=== PATIENT | female | born 1950 | race Caucasian/White ===

== ENCOUNTER 2022-12-18 12:28 | Observation (INO) | payer MEDICARE, SELFPAY ==
[2022-12-18] VITALS (14 sets, daily range): BP systolic 110–163; BP diastolic 66–117; PULSE 61–100; RESP 18–22; TEMP 36.4–36.9; O2SAT 92–100; BMI 40.5; BMI 38.9
--- NOTE | 2022-12-18 12:35 | XR_ITS ---
FINAL REPORT CLINICAL HISTORY: Shortness of breath, copd and chf COMPARISON: None FINDINGS: The patient is intubated. Endotracheal tube is present with the tip 7 cm superior to the cele. The heart size is at the upper limits of normal. The mediastinum is normal. There are mild chronic changes in both lungs. There is subtle airspace opacity in the right perihilar region which may be due to localized edema or pneumonia. There are no pleural effusions. There is no pneumothorax. There is no osseous abnormality. IMPRESSION: Right perihilar airspace opacity may be due to localized edema or pneumonia. Follow-up recommended. Reviewed, Interpreted and Dictated by Roque Cantu MD Transcribed by Mayra Rios Authenticated and [facility]
--- NOTE | 2022-12-18 12:39 | PC.NURSE ---
respiratory aware of vbg in lab
[2022-12-18 12:49] LABS: Basophils % 0.6 % (0.1-2.0); Chloride 89 mmol/L (98-107); Eosinophils # 0.2 K/mm3 (0.0-0.4); Eosinophils % 2.4 % (0.1-12.0); Hematocrit 30.2 % (37.0-47.0); Hemoglobin 9.3 g/dL (12.2-16.2); Lymphocytes # 1.4 K/mm3 (0.7-4.5); Lymphocytes % 21.1 % (10-50); Mean Corpuscular HGB Conc 30.7 g/dL (31.8-35.4); Mean Corpuscular Hemoglobin 24.5 pg (27.0-31.2); Mean Corpuscular Volume 79.8 fl (81-99); Mean Platelet Volume 9.5 fl (7.4-10.4); Monocytes # 0.6 K/mm3 (0.1-1.0); Monocytes % 8.7 % (1.7-9.3); Neutrophils # 4.5 K/mm3 (1.8-7.8); Neutrophils % 67.2 % (37.0-80.0); Platelet Count 189 K/mm3 (142-424); Red Blood Count 3.78 M/mm3 (4.20-5.40); Red Cell Distribution Width 21.6 % (11.5-17.5); White Blood Count 6.7 K/mm3 (4.8-10.8)
[2022-12-18 12:50] LABS: Potassium 4.2 mmoL/L (3.5-5.1); Sodium 137 mmol/L (136-145)
--- NOTE | 2022-12-18 12:50 | HMH.EDGENADL ---
Discharge Plan Disposition Patient Disposition: Admitted Chief Complaint: Altered Mental Status Prescriptions Prescriptions: No Action levocetirizine 5 mg tablet 5 mg PO Patient Comments: TAKE 1 TABLET BY MOUTH ONCE DAILY albuterol sulfate [Ventolin HFA] 90 mcg/actuation HFA aerosol inhaler INHALATION ergocalciferol (vitamin D2) 1,250 mcg (50,000 unit) capsule 1,250 mcg PO Patient Comments: TAKE 1 CAPSULE BY MOUTH EVERY TWO WEEKS (TWICE A MONTH) hydroxyzine HCl 50 mg tablet 50 mg PO Patient Comments: TAKE 1 TABLET BY MOUTH THREE TIMES DAILY NEEDED FOR HIVES gabapentin 400 mg capsule 400 mg PO metformin 500 mg tablet 500 mg PO BID lisinopril 5 mg tablet 5 mg PO DAILY paroxetine HCl 30 mg tablet PO Patient Comments: TAKE 1 TABLET BY MOUTH ONCE DAILY Spiriva Respimat 2.5 mcg/actuation mist INHALATION Invokana 100 mg tablet 100 mg PO rosuvastatin 10 mg tablet 10 mg PO Clinical Impressions Clinical Impression: Acute exacerbation of chronic obstructive pulmonary disease, Acute and chronic respiratory failure with hypercapnia Instructions Patient Instructions: DI for Altered Mental Status Discharge ED Provider: Kyrie Lara General Adult HPI General Chief complaint: Altered Mental Status Stated complaint: ams Time Seen by Provider: 12/18/22 12:35 Mode of Arrival: Ambulatory Source of Information: Patient Limitations: No Limitations Description of Symptoms (Recalled from ER Triage Doc. by RN): pt c/o bilateral legs swelling with redness, dizziness, feeling out of space for a few months, per long-term nurse pt had a fall on 12/15/22, bruising noted to bilateral hands and left cheek. Denies any other injuries at this time, was able to transfer from stretcher to bed with minimal assistance. History of Present Illness HPI narrative: 72-year-old female history of hypertension, hyperlipidemia, diabetes, CAD, A-fib not currently on anticoagulation, CHF, lymphedema, COPD on 3 L nasal cannula at home presenting with concern for altered mental status. Patient complaining of worsening bilateral lower extremity swelling. retirement states that patient had a fall on 12/15 with minor injuries and mobility has not changed since that time, but patient seem to be more altered today. EMS was called and patient was brought to the emergency department. On arrival, patient on home oxygen, alert, oriented, appropriate. Not complaining of anything at this time other than mild shortness of breath. Related Data Home Medications Medication Instructions Recorded Confirmed albuterol sulfate 90 mcg/actuation g inhalation 08/12/20 06/22/21 aerosol inhaler (Ventolin HFA) canagliflozin 100 mg tablet 100 mg PO 08/12/20 06/22/21 (Invokana) ergocalciferol (vitamin D2) 1,250 1,250 mcg PO 08/12/20 06/22/21 mcg (50,000 unit) capsule gabapentin 400 mg capsule 400 mg PO 08/12/20 06/22/21 hydroxyzine HCl 50 mg tablet 50 mg PO 08/12/20 06/22/21 levocetirizine 5 mg tablet 5 mg PO 08/12/20 06/22/21 lisinopril 5 mg tablet 5 mg PO DAILY 08/12/20 06/22/21 metformin 500 mg tablet 500 mg PO BID 08/12/20 06/22/21 paroxetine HCl 30 mg tablet ea PO 08/12/20 06/22/21 rosuvastatin 10 mg tablet 10 mg PO 08/12/20 06/22/21 tiotropium bromide 2.5 g inhalation 08/12/20 06/22/21 mcg/actuation mist for inhalation (Spiriva Respimat) Allergies Allergy/AdvReac Type Severity Reaction Status Date / Time Penicillins Allergy Verified 06/22/21 13:30 [facility] Disclaimer: The information contained in this section may have been updated after the patient was seen, as this information can be updated by other users. Social History Smoking Status: Former smoker tobacco type: cigarettes packs per day: 2 alcohol intake: never substance use type: denies use current occupational status: retired Travel in the last 8 weeks: None
[2022-12-18 12:52] LABS: Alanine Aminotransferase 19 U/L (12-78); Albumin Level 4.1 g/dl (3.5-5.0); Albumin/Globulin Ratio 1.3 (1.1-1.8); Alkaline Phosphatase 79 U/L (38-126); Aspartate Amino Transferase 33 U/L (14-36); Bilirubin,Total 0.3 mg/dl (0.2-1.3); Blood Urea Nitrogen 17 mg/dl (7-17); Calcium 8.6 mg/dl (8.4-10.2); Creatinine Clearance Estimated 85 mL/min (50-200); Estimated Glomerular Filt Rate 70 ml/min (>60); GFR (African American) 85 ML/MIN (>60); Globulin 3.2 g/dL (1.3-3.2); Glucose 102 mg/dl (74-100); Total Protein,Serum 7.3 g/dl (6.3-8.2)
[2022-12-18 12:52] LABS: VBG Base Excess 9.1 mmol/L (-2.4-2.3); VBG HCO3 36.4 mmol/L (23-30); VBG Oxygen Saturation 92.9 % (50-70); VBG PH 7.25 mmol/L (7.31-7.41); VBG PO2 72.6 mmol/L (28-40)
[2022-12-18 12:54] LABS: VBG PCO2 85.3 mmol/L (35-51)
[2022-12-18 13:25] LABS: NT Pro Brain Natriuretic Pep. 2200 pg/mL (0-125)
[2022-12-18 13:29] LABS: Troponin I < 0.01 ng/ml (0.00-0.034)
--- NOTE | 2022-12-18 13:40 | ECG_ITS ---
APPROVED REPORT Exam: Resting ECG HR:73 bpm ECG Measurements Heart Rate 73 AXES QRSd 108 QRS 93 QT 422 T 68 QTc 447 Conclusion ATRIAL FIBRILLATION BORDERLINE RIGHT AXIS DEVIATION [QRS AXIS > 90] MODERATE ST DEPRESSION [0.05+ mV ST DEPRESSION] ABNORMAL ECG UNCONFIRMED REPORT Electronically signed by : Kristian Bynum MD 12/19/2022 20:12:52
[2022-12-18 13:43] LABS: Anion Gap 13.2 mEq/L (5-15); Carbon Dioxide 39 mmol/L (22.0-30.0)
--- NOTE | 2022-12-18 14:27 | PC.NURSE ---
amadeowick placed for urine collection, pt tolerated well
[2022-12-18 14:31] LABS: VBG Base Excess 8.9 mmol/L (-2.4-2.3); VBG HCO3 35.1 mmol/L (23-30); VBG PH 7.32 mmol/L (7.31-7.41); VBG PO2 69.5 mmol/L (28-40); VBG Total CO2 37.2 mmol/L (23-27)
[2022-12-18 14:34] LABS: VBG PCO2 70.3 mmol/L (35-51)
--- NOTE | 2022-12-18 15:11 | PC.NURSE ---
notified care management of admission
--- NOTE | 2022-12-18 15:13 | SW/DCPLANNER ---
Addendum entered by Elizabeth Ward 12/20/22 10:44: I have updated Lauryn barnes/ [facility] that patient will return today. Addendum entered by Elizabeth Ward 12/19/22 15:14: Updated patient information has been faxed to Lauryn barnes/ [facility]. Original Note: This patient currently resides at [facility] level of care. I have updated Lauryn that patient is admitted to [facility]. Discharge date is unknown at this time.
[2022-12-18 16:02] LABS: Microscopic, Urine URINE MICROSCOPIC (MICROSCOPIC)
[2022-12-18 16:04] LABS: Appearance,Urine CLEAR (Clear); Blood, Urine Negative (Negative); Color,Urine YELLOW (Yellow); Glucose,Urine (UA) 1+ (Negative); Ketones,Urine Negative (Negative); Leukocyte Esterase,Urine 1+ (Negative); Nitrate,Urine Negative (Negative); PH,Urine 5.5 (5.0-8.5); Protein,Urine Negative (Negative); Urobilinogen,Urine 0.2 EU/dl (0.2)
[2022-12-18 16:09] LABS: Bilirubin,Urine 1+ (Negative)
--- NOTE | 2022-12-18 16:25 | PC.NURSE ---
nurse needs to call back for report
[2022-12-18 16:30] LABS: WBC,Urine Occasional #/hpf (0-3)
[2022-12-18 16:31] LABS: Squamous Epithelial Cell,Urine Occasional #/hpf (0-5)
[2022-12-18 16:47] LABS: Troponin I < 0.01 ng/ml (0.00-0.034)
--- NOTE | 2022-12-18 17:12 | PC.NURSE ---
CALLED RT TO HELP COME TRANSPORT PT TO THE FLOOR.
--- NOTE | 2022-12-18 17:19 | PC.NURSE ---
arrived by stretcher from ED
--- NOTE | 2022-12-18 18:03 | EXP.HP ---
History of Present Illness *Admission Date: 12/18/22 *Reason for visit:: dyspnea, confused *History of present illness: 72-year-old female who presents from [facility] due to increased swelling of her legs, dizziness, feeling spacey for the past few months. Per nursing she had fallen on 12/15. Developed some bruising on hands as well as left knee. No other injuries. Able to transfer from stretcher to bed in the ER with minimal assistance. History significant for hypertension, hyperlipidemia, diabetes, CAD, A-fib on Eliquis, CHF, lymphedema, COPD on 3 L nasal cannula continuously. On evaluation in the ER had some mild altered mental status. Necessitated significant stimulation to awaken and answer questions. Denies any nausea or vomiting. No fever or chills. No cough. ER started work-up which showed elevated BNP and concern for hypercapnia. Initiated on BiPAP with some improvement in mentation. Given volume overload, altered mental status, hypercapnia, requested admission for further management. Medicine agreed to admit. On evaluation, patient will arouse to voice but falls back asleep easily. Appears volume overloaded with significant peripheral edema. Complains of some shortness of breath. [facility] Disclaimer: The information contained in this section may have been updated after the patient was seen, as this information can be updated by other users. Medical History (Updated 12/18/22 @ 18:14 by Lamin Hemphill MD) Anxiety Atrial fibrillation Congestive heart failure COPD (chronic obstructive pulmonary disease) Depression Diabetes mellitus type 2 in obese Fibromyalgia HLD (hyperlipidemia) HTN (hypertension) Iron deficiency anemia Lymphedema Surgical History H/O hernia repair H/O: hysterectomy History of bladder surgery History of coronary artery stent placement Family History No significant family history Social History Smoking Status: Former smoker tobacco type: cigarettes packs per day: 2 alcohol intake: never substance use type: denies use current occupational status: retired Travel in the last 8 weeks: None Review of Systems Review of Systems Review of systems (narrative): 14 point review of systems performed, pertinent positives and negatives as per HPI Meds Home Medications and Allergies Home Medications Medication Instructions Recorded Confirmed Type ergocalciferol (vitamin D2) 1,250 1,250 mcg PO WEEKLY Supplement 08/12/20 12/18/22 History mcg (50,000 unit) capsule lisinopril 5 mg tablet 2.5 mg PO DAILY 08/12/20 12/18/22 History paroxetine HCl 30 mg tablet 30 mg PO HS 08/12/20 12/18/22 History rosuvastatin 10 mg tablet 10 mg PO HS 08/12/20 12/18/22 History tiotropium bromide 2.5 1 puff inhalation DAILY 08/12/20 12/18/22 History mcg/actuation mist for inhalation (Spiriva Respimat) acetaminophen 500 mg chewable 500 mg PO Q6H PRN PAIN/FEVER 12/18/22 12/18/22 History tablet acetaminophen 500 mg tablet 500 mg PO TID pain 12/18/22 12/18/22 History (Tylenol Extra Strength) albuterol sulfate 90 mcg/actuation 90 mcg inhalation DIRECTED 12/18/22 12/18/22 History aerosol inhaler albuterol sulfate 90 mcg/actuation 2 puff inhalation QID PRN copd 12/18/22 12/18/22 History aerosol inhaler (Ventolin HFA) amitriptyline 25 mg tablet 25 mg PO HS 12/18/22 12/18/22 History apixaban 5 mg tablet (Eliquis) 5 mg PO BID 12/18/22 12/18/22 History aspirin 81 mg capsule 81 mg PO DAILY 12/18/22 12/18/22 History budesonide-formoterol HFA 160 1 puff inhalation DIRECTED 12/18/22 12/18/22 History mcg-4.5 mcg/actuation aerosol inhaler (Symbicort) buspirone 10 mg tablet 10 mg PO HS 12/18/22 12/18/22 History carvedilol 3.125 mg tablet 3.125 mg PO BID 12/18/22 12/18/22 History docusate sodium 100 mg tablet 100 mg PO BID 12/06
--- NOTE | 2022-12-18 18:25 | PC.NURSE ---
Pt is currently on 3L O2 NC which is baseline. She is A&O x3. Pt states she wants to be full code status. She is eating her dinner at this time and c/o soa while doing it. lasix 40 mg IV administered via MD order. Pt noted to have bruises to face, chest, BUE and abdomen from previous fall at facility she is at. She has melissa wraps on BLE. Per MD order remove melissa wraps this evening. Call light within reach. Safety measures in place.
[2022-12-18 18:27] LABS: POC Glucose,Bedside 132 (70-110)
[2022-12-18 19:48] LABS: Troponin I < 0.01 ng/ml (0.00-0.034)
[2022-12-19] VITALS (10 sets, daily range): BP systolic 130–153; BP diastolic 58–85; PULSE 60–94; RESP 17–22; TEMP 36.8–37.1; O2SAT 93–100; BMI 39.5
[2022-12-19 03:47] LABS: POC Glucose,Bedside 301 (70-110)
[2022-12-19 06:52] LABS: POC Glucose,Bedside 160 (70-110)
--- NOTE | 2022-12-19 07:32 | HMH.PHAINT1 ---
Pharmacy Intervention Comments: Med reconciliation completed using list from detention
[2022-12-19 07:33] LABS: Basophils % 0.3 % (0.1-2.0); Eosinophils % 0.4 % (0.1-12.0); Hematocrit 27.8 % (37.0-47.0); Hemoglobin 8.6 g/dL (12.2-16.2); Lymphocytes # 1.3 K/mm3 (0.7-4.5); Lymphocytes % 21.6 % (10-50); Mean Corpuscular HGB Conc 31.2 g/dL (31.8-35.4); Mean Corpuscular Hemoglobin 24.4 pg (27.0-31.2); Mean Corpuscular Volume 78.4 fl (81-99); Mean Platelet Volume 9.7 fl (7.4-10.4); Monocytes # 0.6 K/mm3 (0.1-1.0); Monocytes % 9.9 % (1.7-9.3); Neutrophils % 67.8 % (37.0-80.0); Platelet Count 210 K/mm3 (142-424); Red Blood Count 3.54 M/mm3 (4.20-5.40); Red Cell Distribution Width 22.1 % (11.5-17.5); White Blood Count 5.9 K/mm3 (4.8-10.8)
[2022-12-19 07:37] LABS: Alanine Aminotransferase 21 U/L (12-78); Albumin Level 3.6 g/dl (3.5-5.0); Albumin/Globulin Ratio 1.2 (1.1-1.8); Alkaline Phosphatase 68 U/L (38-126); Aspartate Amino Transferase 29 U/L (14-36); Bilirubin,Total 0.2 mg/dl (0.2-1.3); Blood Urea Nitrogen 17 mg/dl (7-17); Calcium 8.5 mg/dl (8.4-10.2); Chloride 85 mmol/L (98-107); Creatinine Clearance Estimated 83 mL/min (50-200); Estimated Glomerular Filt Rate 70 ml/min (>60); GFR (African American) 85 ML/MIN (>60); Globulin 2.9 g/dL (1.3-3.2); Glucose 144 mg/dl (74-100); Magnesium 1.6 mg/dl (1.6-2.3); Potassium 4.2 mmoL/L (3.5-5.1); Sodium 132 mmol/L (136-145); Total Protein,Serum 6.5 g/dl (6.3-8.2)
[2022-12-19 07:44] LABS: Anion Gap 11.2 mEq/L (5-15); Carbon Dioxide 40 mmol/L (22.0-30.0)
[2022-12-19 08:08] LABS: Thyroid Stimulating Hormone 1.03 uIU/mL (0.465-4.68)
[2022-12-19 09:30] LABS: Iron 28 ug/dL (37-170)
[2022-12-19 09:39] LABS: Total Iron Binding Capacity 434 ug/dL (265-497)
[2022-12-19 10:05] LABS: Ferritin 12.9 ng/ml (11.1-264)
[2022-12-19 10:46] LABS: Hemoglobin A1C 5.7 % (4.0-6.0)
[2022-12-19 12:26] LABS: POC Glucose,Bedside 130 (70-110)
--- NOTE | 2022-12-19 14:05 | EXP.PN ---
Subjective *Date: 12/19/22 *Time: 14:05 Interval history: Patient seen and evaluated at the bedside. Patient denied chest pain nausea vomiting diarrhea constipation dysuria fevers chills. shortness of breath is better per patient. Exam Data for Last 24 hours Vital signs and Labs for Last 24 Hours: Temp Pulse Resp BP Pulse Ox O2 Del Method O2 Flow Rate 98.3 F 65 19 152/85 H 93 L Nasal Cannula 2 12/19/22 11:29 12/19/22 11:29 12/19/22 11:29 12/19/22 11:29 12/19/22 11:29 12/19/22 11:29 12/19/22 11:29 FiO2 30 12/19/22 02:23 Laboratory Results - last 24 hr 12/18/22 14:26: VBG pH 7.32, VBG pCO2 70.3 H, VBG pO2 69.5 H, VBG HCO3 35.1 H, VBG Total CO2 37.2 H, VBG O2 Saturation 92.0 H, VBG Base Excess 8.9 H 12/18/22 14:34: Lactate 1.0 12/18/22 15:41: Troponin I < 0.01 12/18/22 16:00: Urine Color Yellow, Urine Appearance Clear, Urine pH 5.5, Ur Specific [place] 1.010, Urine Protein Negative, Urine Glucose (UA) 1+, Urine Ketones Negative, Urine Blood Negative, Urine Nitrate Negative, Urine Bilirubin 1+ A, Urine Urobilinogen 0.2, Ur Leukocyte Esterase 1+ A, Urine RBC None, Urine WBC Occasional, Ur Squamous Epith Cells Occasional, Urine Bacteria None 12/18/22 18:17: POC Glucose 132 H 12/18/22 19:10: Troponin I < 0.01 12/18/22 21:31: POC Glucose 301 H* 12/19/22 06:45: POC Glucose 160 H 12/19/22 06:57: WBC 5.9, RBC 3.54 L, Hgb 8.6 L, Hct 27.8 L, MCV 78.4 L, MCH 24.4 L, MCHC 31.2 L, RDW 22.1 H, Plt Count 210, MPV 9.7, Neut % (Auto) 67.8, Lymph % (Auto) 21.6, Imperial % (Auto) 9.9 H, Eos % (Auto) 0.4, Baso % (Auto) 0.3, Neut # (Auto) 4.0, Lymph # (Auto) 1.3, Imperial # (Auto) 0.6, Eos # (Auto) 0.0, Baso # (Auto) 0.0, Sodium 132 L, Potassium 4.2, Chloride 85 L, Carbon Dioxide 40 H, Anion Gap 11.2, BUN 17, Creatinine 0.80, Estimated Creat Clear 83, Estimated GFR 70, Est GFR ( Amer) 85, Glucose 144 H D, Hemoglobin A1c 5.7, Calcium 8.5, Magnesium 1.6, Iron 28 L, TIBC 434, Iron Saturation 6.52656 L, Ferritin 12.9, Total Bilirubin 0.2, AST 29, ALT 21, Alkaline Phosphatase 68, Total Protein 6.5, Albumin 3.6 D, Globulin 2.9, Albumin/Globulin Ratio 1.2, TSH 1.03 12/19/22 12:14: POC Glucose 130 H I & O for Last 24 hours: Intake & Output 12/16/22 12/17/22 12/18/22 12/19/22 23:59 23:59 23:59 23:59 Intake Total 480 / 480 Output Total 1575 / 1575 2200 / 2200 Balance -1575 / -1575 -1720 / -1720 Weight 103.022 kg 105.035 kg Constitutional Constitutional: no acute distress and cooperative *Routine HEENT Exam Head: Present normocephalic Eye: Present EOMI and PERRL ENT: Present mucous membranes moist *Routine Neck Exam Neck: Present supple; Absent lymphadenopathy *Routine Respiratory Exam Respiratory: Present CTA bilaterally *Routine Cardiovascular Exam Cardiovascular: Present RRR *Routine Abdominal Exam Abdominal: Present soft and normoactive bowel sounds; Absent tenderness *Routine Extremities Exam Extremities: Absent cyanosis, clubbing or edema *Routine Skin Exam Skin: Present warm; Absent rash *Routine Neurological Exam Neurological: Present alert and oriented X3 Detailed Lower Extremity Exam Comments: has b/l leg edema +1 Assessment and Plan *Assessment and plan (1) Acute exacerbation of CHF (congestive heart failure): Status: Acute Category: Medical Code(s): I50.9 - Heart failure, unspecified (2) Acute and chronic respiratory failure with hypercapnia: Status: Acute Category: Medical Code(s): J96.22 - Acute and chronic respiratory failure with hypercapnia (3) Acute exacerbation of chronic obstructive pulmonary disease: Status: Acute Category: Medical Code(s): J44.1 - Chronic obstructive pulmonary disease with (acute) exacerbation (4) Diabetes mellitus: Status: Acute Qualifiers: Diabetes mellitus type: type 2 Diabetes mellitus snf insulin use: 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
[2022-12-19 16:42] LABS: POC Glucose,Bedside 76 (70-110)
--- NOTE | 2022-12-19 19:02 | PC.NURSE ---
Patient has worn cpap on and off throughout shift as tolerated. Patient' Vital signs stable
[2022-12-19 21:34] LABS: POC Glucose,Bedside 205 (70-110)
[2022-12-20] VITALS: BP 148/79; PULSE 80; PULSE 88; RESP 18; TEMP 36.9; O2SAT 97
--- NOTE | 2022-12-20 02:59 | PC.NURSE ---
Pt is alert and oriented x4, Pt has been on 3L of O2 for the most part of the shift, respiratory therapist has placed pt on Bi-Pap. Pt is pleasant and asking for sugared snacks throughout the shift, educated pt on diabetic diet orders and offered sugar free snacks. Pt has required coverage for glucose of 205. Pt denies pain and needs at this time.
--- NOTE | 2022-12-20 03:45 | ECG_ITS ---
APPROVED REPORT Exam: Resting ECG HR:76 bpm ECG Measurements Heart Rate 76 AXES QRSd 109 QRS 94 QT 419 T 78 QTc 449 Conclusion ATRIAL FLUTTER/TACHYCARDIA BORDERLINE RIGHT AXIS DEVIATION [QRS AXIS > 90] MODERATE ST DEPRESSION [0.05+ mV ST DEPRESSION] ABNORMAL ECG UNCONFIRMED REPORT Electronically signed by : Kristian Bynum MD 12/20/2022 17:09:28
[2022-12-20 04:00] VITALS: BP 162/70; PULSE 42; PULSE 60; RESP 18; TEMP 36.9; O2SAT 94; BMI 38.5
--- NOTE | 2022-12-20 04:24 | PC.NURSE ---
Pt showed multiple PVCs on telemetry, Notified resp, EKG done and showed A flutter and A fib, Guilherme [employer] notified, orders read back and verified for pain medications.
[2022-12-20 05:53] LABS: POC Glucose,Bedside 67 (70-110)
[2022-12-20 05:53] LABS: POC Glucose,Bedside 64 (70-110)
[2022-12-20 05:53] LABS: POC Glucose,Bedside 108 (70-110)
[2022-12-20 08:00] VITALS: BP 164/83; PULSE 65; PULSE 83; RESP 20; TEMP 36.9; O2SAT 96
[2022-12-20 11:21] LABS: POC Glucose,Bedside 137 (70-110)
[2022-12-20 11:48] VITALS: BP 131/71; PULSE 73; RESP 20; TEMP 36.5; O2SAT 98
[2022-12-20 12:00] VITALS: PULSE 65
--- NOTE | 2022-12-20 12:26 | EXP.DC.SUM ---
General Admission date:: 12/18/22 Discharge date: 12/20/22 HPI HPI HPI: 72-year-old female who presents from [facility] due to increased swelling of her legs, dizziness, feeling spacey for the past few months. Per nursing she had fallen on 12/15. Developed some bruising on hands as well as left knee. No other injuries. Able to transfer from stretcher to bed in the ER with minimal assistance. History significant for hypertension, hyperlipidemia, diabetes, CAD, A-fib on Eliquis, CHF, lymphedema, COPD on 3 L nasal cannula continuously. On evaluation in the ER had some mild altered mental status. Necessitated significant stimulation to awaken and answer questions. Denies any nausea or vomiting. No fever or chills. No cough. ER started work-up which showed elevated BNP and concern for hypercapnia. Initiated on BiPAP with some improvement in mentation. Given volume overload, altered mental status, hypercapnia, requested admission for further management. Medicine agreed to admit. On evaluation, patient will arouse to voice but falls back asleep easily. Appears volume overloaded with significant peripheral edema. Complains of some shortness of breath. Hospital Course Hospital Course Hospital Course: Patient was seen and evaluated at the bedside on the day of discharge. Patient is stable for discharge. Patient wishes to be discharged. All patient questions were answered and patient was given time to ask questions. Patient was discharged in stable condition. Patient is a 72-year-old female with past medical history of COPD diabetes mellitus atrial fibrillation fibromyalgia hypertension hyperlipidemia who presented to hospital due to bilateral lower extremity swelling as well as shortness of breath and change in mental status. Assessment Acute on chronic CHF - improved Acute on chronic hypoxic hypercapnic respiratory failure satting < 90% on room air- improved Chronic atrial fibrillation COPD Diabetes mellitus Plan switch to PO lasix Strict input and output monitoring Monitor and replace electrolytes Continue aspirin, Eliquis, Coreg, lisinopril Continue oxygen supplementation, wean as tolerated DVT prophylaxis-Eliquis Insulin sliding scale stable for discharge Exam Data for Last 24 hours Vital signs and Labs for Last 24 Hours: Temp Pulse Resp BP Pulse Ox O2 Del Method O2 Flow Rate 97.7 F 73 20 131/71 98 Nasal Cannula 3 12/20/22 11:48 12/20/22 11:48 12/20/22 11:48 12/20/22 11:48 12/20/22 11:48 12/20/22 11:48 12/20/22 11:48 FiO2 30 12/19/22 02:23 Laboratory Results - last 24 hr 12/19/22 12:14: POC Glucose 130 H 12/19/22 16:29: POC Glucose 76 12/19/22 21:02: POC Glucose 205 H 12/20/22 04:45: POC Glucose 64 L 12/20/22 05:00: POC Glucose 67 L 12/20/22 05:47: POC Glucose 108 12/20/22 11:10: POC Glucose 137 H I & O for Last 24 hours: Intake & Output 12/17/22 12/18/22 12/19/22 12/20/22 23:59 23:59 23:59 23:59 Intake Total 720 / 840 120 / 120 Output Total 1575 / 1575 5100 / 5800 2600 / 2600 Balance -1575 / -1575 -4380 / -4960 -2480 / -2480 Weight 103.022 kg 105.035 kg 102.512 kg Constitutional Constitutional: no acute distress *Routine HEENT Exam Head: Present normocephalic Eye: Present EOMI and PERRL ENT: Present mucous membranes moist *Routine Neck Exam Neck: Present supple; Absent lymphadenopathy *Routine Respiratory Exam Respiratory: Present CTA bilaterally *Routine Cardiovascular Exam Cardiovascular: Present RRR *Routine Abdominal Exam Abdominal: Present soft and normoactive bowel sounds; Absent tenderness *Routine Extremities Exam Extremities: Absent cyanosis, clubbing or edema *Routine Skin Exam Skin: Present warm; Absent rash *Routine Neurological Exam Neurological: Present alert and oriented X3 Results Data Completed and Pending Labs on day of discharge: Labs from last 24 hours 12/20/22 12/20/22 12/20/22 11:10 05:47 05:00 POC
== END 2022-12-20 15:21 ==
LOC: ER 15:19 → 2ND 15:47
PROVIDERS: Emergency Medicine; Admitting Provider Internal Medicine Adolescent Medicine; Emergency Provider Emergency Medicine; PCP Internal Medicine; Visit Provider Internal Medicine Adolescent Medicine
DX: I11.0 Hypertensive heart disease with heart failure (principal); I50.9 Heart failure, unspecified; J96.22 Acute and chronic respiratory failure with hypercapnia; J44.1 Chronic obstructive pulmonary disease with (acute) exacerbation; E11.42 Type 2 diabetes mellitus with diabetic polyneuropathy; D50.9 Iron deficiency anemia, unspecified; E78.5 Hyperlipidemia, unspecified; I10 Essential (primary) hypertension; E66.09 Other obesity due to excess calories; Z68.39 Body mass index [BMI] 39.0-39.9, adult; Z79.01 Long term (current) use of anticoagulants; Z99.81 Dependence on supplemental oxygen; Z95.5 Presence of coronary angioplasty implant and graft; F32.A Depression, unspecified; I48.20 Chronic atrial fibrillation, unspecified
CPT/HCPCS: 36415; 71045; 80053; 81001; 82728; 82803; 82962; 83036; 83540; 83550; 83605; 83735; 83880; 84443; 84484; 85025; 87040; 87086; 93005; 94640; 99291; G0378; J0696

== ENCOUNTER 2023-01-11 11:41 | Inpatient (IN) | payer MEDICARE, SELFPAY ==
[2023-01-11] VITALS (19 sets, daily range): BP systolic 129–171; BP diastolic 62–107; PULSE 51–96; RESP 11–26; TEMP 36.4–36.6; O2SAT 72–100; BMI 43.2; BMI 41.3
--- NOTE | 2023-01-11 11:32 | ECG_ITS ---
APPROVED REPORT Exam: Resting ECG HR:74 bpm ECG Measurements Heart Rate 74 AXES QRSd 97 QRS 67 QT 371 T 64 QTc 398 Conclusion ATRIAL FIBRILLATION WITH ABERRANT CONDUCTION OR VENTRICULAR PREMATURE COMPLEXES MODERATE ST DEPRESSION [0.05+ mV ST DEPRESSION] ABNORMAL ECG UNCONFIRMED REPORT Electronically signed by : Kristian Bynum MD 01/11/2023 17:11:28
--- NOTE | 2023-01-11 11:42 | XR_ITS ---
FINAL REPORT CLINICAL HISTORY: SOA, cough COMPARISON: 12/18/2022 FINDINGS: SINGLE-VIEW CHEST There is cardiomegaly. The mediastinum is normal. The lungs are clear. There is no pneumothorax. IMPRESSION: No acute cardiopulmonary process. Reviewed, Interpreted and Dictated by Delfino Ruth III, MD Transcribed by Cass Pérez Authenticated and [facility]
--- NOTE | 2023-01-11 11:50 | HMH.EDGENADL ---
Discharge Plan Disposition Patient Disposition: Admitted Clinical Impressions Clinical Impression: Acute exacerbation of chronic obstructive airways disease, Acute and chronic respiratory failure Discharge ED Provider: Nicole Tsang General Adult HPI General Chief complaint: Shortness of Breath/Dyspnea Stated complaint: SOA Time Seen by Provider: 01/11/23 11:41 History of Present Illness HPI narrative: This patient is a 72-year-old female with a history of COPD on 3 L nasal cannula chronically, CHF, lymphedema, insulin-dependent diabetes, obesity, hypertension, hyperlipidemia, atrial fibrillation, and general debility presenting to the emergency department from skilled nursing for evaluation with concern for shortness of breath. Patient was admitted here 12/18/2022 and discharged 12/20/2022 with acute on chronic respiratory failure. Since going back to the nursing facility, she states that her leg swelling is improved, but her shortness of breath is worsened and she has also had a cough. She also complains of nausea that started today. No other concerns noted, such as fevers, chest pain, abdominal pain, changes in bowel movements, or other concerns. According to EMS, the patient was hemodynamically stable and nontoxic-appearing in route. Related Data Home Medications Medication Instructions Recorded Confirmed ergocalciferol (vitamin D2) 1,250 1,250 mcg PO WEEKLY Supplement 08/12/20 01/11/23 mcg (50,000 unit) capsule lisinopril 5 mg tablet 2.5 mg PO DAILY High Blood Pressure 08/12/20 01/11/23 rosuvastatin 10 mg tablet 10 mg PO HS High Cholesterol 08/12/20 01/11/23 tiotropium bromide 2.5 1 puff inhalation DAILY Copd 08/12/20 01/11/23 mcg/actuation mist for inhalation (Spiriva Respimat) acetaminophen 500 mg tablet 1,000 mg PO Q6HP PRN pain or fever 12/18/22 01/11/23 (Tylenol Extra Strength) albuterol sulfate 90 mcg/actuation 2 puff inhalation Q4HP PRN 12/18/22 01/11/23 aerosol inhaler shortness of air or wheezing related to copd amitriptyline 25 mg tablet 25 mg PO HS mood 12/18/22 01/11/23 apixaban 5 mg tablet (Eliquis) 5 mg PO BID prevents clots 12/18/22 01/11/23 aspirin 81 mg capsule 81 mg PO DAILY prevents clots 12/18/22 01/11/23 budesonide-formoterol HFA 160 2 puff inhalation BID Copd 12/18/22 01/11/23 mcg-4.5 mcg/actuation aerosol inhaler (Symbicort) buspirone 10 mg tablet 10 mg PO BID mood 12/18/22 01/11/23 carvedilol 3.125 mg tablet 3.125 mg PO BID High Blood Pressure 12/18/22 01/11/23 docusate sodium 100 mg tablet 100 mg PO BID Constipation 12/18/22 01/11/23 ferrous sulfate 324 mg (65 mg 324 mg PO DAILY anemia 12/18/22 01/11/23 iron) tablet,delayed release furosemide 40 mg tablet 40 mg PO BID Fluid 12/18/22 01/11/23 icosapent ethyl 1 gram capsule 1 g PO BID High Cholesterol 12/18/22 01/11/23 (Vascepa) insulin glargine 100 unit/mL (3 35 unit SQ HS high blood sugar 12/18/22 01/11/23 mL) subcutaneous pen insulin lispro 100 unit/mL 0 sliding scale dose SQ ACHS high 12/18/22 01/11/23 subcutaneous pen blood sugar multivitamin 1 tab PO DAILY Supplement 12/18/22 01/11/23 nitroglycerin 0.4 mg sublingual 0.4 mg sublingual Q5M PRN Chest 12/18/22 01/11/23 tablet Pain omeprazole 40 mg capsule,delayed 40 mg PO HS Acid Reflux 12/18/22 01/11/23 release polyethylene glycol 3350 17 gram 17 g PO DAILY Constipation 12/18/22 01/11/23 oral powder packet (Miralax) potassium chloride 10 mEq 10 meq PO DAILY Supplement 12/18/22 01/11/23 tablet,extended release(part/cryst) trazodone 50 mg tablet 50 mg PO HS Insomnia 12/18/22 01/11/23 acetaminophen 500 mg tablet 500 mg PO TIDWMEAL Pain 12/19/22 01/11/23 albuterol sulfate 2.5 mg/3 mL 2.5 mg continuous nebulization 12/19/22 01/11/23 (0.083 %) solution for nebulization Q4HP PRN shortness of air or wheezing gabapentin 300 mg capsule 300 mg PO BID nerve pain 12/19/22 01/11/23 mineral [id number] glyc 1 ea topical DAILY dry skin 12/19/22 01/11/23 lotion p
--- NOTE | 2023-01-11 11:56 | PC.NURSE ---
lab notified to collect blood d/t having a difficult time obtaining access on pt.
--- NOTE | 2023-01-11 12:04 | PC.NURSE ---
XR AT BEDSIDE
--- NOTE | 2023-01-11 12:07 | PC.NURSE ---
LAB AT BEDSIDE
[2023-01-11 12:29] LABS: Coronavirus 19, PCR Not Detected (NotDetected); Influenza A, PCR Not Detected (NotDetected); Influenza B, PCR Not Detected (NotDetected)
[2023-01-11 12:34] LABS: Basophils % 0.4 % (0.1-2.0); Eosinophils # 0.1 K/mm3 (0.0-0.4); Eosinophils % 1.4 % (0.1-12.0); Hematocrit 33.9 % (37.0-47.0); Hemoglobin 9.9 g/dL (12.2-16.2); Lymphocytes # 1.5 K/mm3 (0.7-4.5); Lymphocytes % 17.4 % (10-50); Mean Corpuscular HGB Conc 29.1 g/dL (31.8-35.4); Mean Corpuscular Hemoglobin 23.5 pg (27.0-31.2); Mean Corpuscular Volume 80.9 fl (81-99); Mean Platelet Volume 8.8 fl (7.4-10.4); Monocytes # 0.8 K/mm3 (0.1-1.0); Monocytes % 9.1 % (1.7-9.3); Neutrophils # 6.2 K/mm3 (1.8-7.8); Neutrophils % 71.7 % (37.0-80.0); Platelet Count 252 K/mm3 (142-424); Red Blood Count 4.19 M/mm3 (4.20-5.40); White Blood Count 8.7 K/mm3 (4.8-10.8)
[2023-01-11 12:41] LABS: Lactic Acid 1.2 mmol/L (0.7-2.1)
--- NOTE | 2023-01-11 13:08 | PC.NURSE ---
LAB ONLY ABLE TO COLLECT RED TOP TUBE, VBG CHANGED TO ABG. RESPIRATORY NOTIFIED
[2023-01-11 13:12] LABS: Chloride 92 mmol/L (98-107)
[2023-01-11 13:13] LABS: Potassium 4.9 mmoL/L (3.5-5.1); Sodium 136 mmol/L (136-145)
[2023-01-11 13:15] LABS: Alanine Aminotransferase 22 U/L (12-78); Alkaline Phosphatase 90 U/L (38-126); Aspartate Amino Transferase 35 U/L (14-36); Bilirubin,Total 0.4 mg/dl (0.2-1.3); Blood Urea Nitrogen 23 mg/dl (7-17); Creatinine Clearance Estimated 43 mL/min (50-200); Estimated Glomerular Filt Rate 70 ml/min (>60); GFR (African American) 85 ML/MIN (>60)
[2023-01-11 13:16] LABS: Albumin Level 4.2 g/dl (3.5-5.0); Albumin/Globulin Ratio 1.4 (1.1-1.8); Anion Gap 10.9 mEq/L (5-15); Calcium 8.8 mg/dl (8.4-10.2); Carbon Dioxide 38 mmol/L (22.0-30.0); Globulin 3.1 g/dL (1.3-3.2); Glucose 70 mg/dl (74-100); Total Protein,Serum 7.3 g/dl (6.3-8.2)
--- NOTE | 2023-01-11 13:16 | PC.NURSE ---
DAUGHTER UPDATED AT THIS TIME PER PT REQUEST
[2023-01-11 13:26] LABS: NT Pro Brain Natriuretic Pep. 1560 pg/mL (0-125)
[2023-01-11 13:29] LABS: ABG Base Excess 4.1 mmol/L (-2.4-2.3); ABG HCO3 30.4 mmhg (22.0-26.0); ABG Oxygen Saturation 95 % (90-100); ABG PH 7.31 mmol/L (7.35-7.45); ABG PO2 82.3 mmhg (80-100); ABG TCO2 32.3 mmhg (23-27)
[2023-01-11 13:31] LABS: Allen's Test Acceptable; Source Right Radial
[2023-01-11 13:33] LABS: T4 (Thyroxine) 6.6 ug/dl (5.53-11.0)
[2023-01-11 13:48] LABS: Troponin I < 0.01 ng/ml (0.00-0.034)
--- NOTE | 2023-01-11 13:53 | EXP.HP ---
History of Present Illness *Admission Date: 01/11/23 *Reason for visit:: dyspnea *History of present illness: Ms. Mesa is a 72-year-old female who presented from [facility] due to increased shortness of breath and confusion. On arrival to the ER, was concern for significant swelling in her legs and increased oxygen requirement. Chronically on 3 L nasal cannula at the snf. Mental status was mildly altered. She was initiated on BiPAP after an ABG was obtained showing mild hypercapnia and mild respiratory acidosis. Diuresed with Lasix x 1 @ 40 mg IV. Necessitating significant stimulation to awaken and answer questions. ER consulted medicine for admission due to altered mental status and hypercapnic respiratory failure. After arrival to the floor. Patient's history is significant for hypertension, hyperlipidemia, diabetes, CAD, A-fib on Eliquis, CHF, lymphedema, COPD on 3 L nasal cannula continuously. Denies any nausea or vomiting. No fever or chills. No cough. Tolerating BiPAP with some improvement in mentation. On evaluation, patient will arouse to voice but falls back asleep easily. Appears volume overloaded with significant peripheral edema. Complains of some shortness of breath. [facility] Disclaimer: The information contained in this section may have been updated after the patient was seen, as this information can be updated by other users. Medical History Acute and chronic respiratory failure with hypercapnia Acute exacerbation of CHF (congestive heart failure) Acute exacerbation of chronic obstructive pulmonary disease Anxiety Atrial fibrillation BMI 30.0-30.9,adult Callus of foot Class 2 obesity due to excess calories with body mass index (BMI) of 39.0 to 39.9 in adult Congestive heart failure COPD (chronic obstructive pulmonary disease) Depression Diabetes mellitus Diabetes mellitus type 2 in obese Diabetic foot Fibromyalgia HLD (hyperlipidemia) HTN (hypertension) Iron deficiency anemia Lymphedema Onychodystrophy Onychomycosis Osteoarthritis Paresthesia of both lower extremities Surgical History H/O hernia repair H/O: hysterectomy History of bladder surgery History of coronary artery stent placement Family History No significant family history Social History Smoking Status: Former smoker tobacco type: cigarettes packs per day: 2 alcohol intake: never substance use type: denies use current occupational status: retired and disabled Travel in the last 8 weeks: None housing: snf lives independently: No snf: Yes Review of Systems Review of Systems Review of systems (narrative): 14 point review of systems performed, pertinent positives and negatives as per HPI Meds Home Medications and Allergies Home Medications Medication Instructions Recorded Confirmed Type ergocalciferol (vitamin D2) 1,250 1,250 mcg PO WEEKLY Supplement 08/12/20 01/11/23 History mcg (50,000 unit) capsule lisinopril 5 mg tablet 2.5 mg PO DAILY High Blood Pressure 08/12/20 01/11/23 History rosuvastatin 10 mg tablet 10 mg PO HS High Cholesterol 08/12/20 01/11/23 History tiotropium bromide 2.5 1 puff inhalation DAILY Copd 08/12/20 01/11/23 History mcg/actuation mist for inhalation (Spiriva Respimat) acetaminophen 500 mg tablet 1,000 mg PO Q6HP PRN pain or fever 12/18/22 01/11/23 History (Tylenol Extra Strength) albuterol sulfate 90 mcg/actuation 2 puff inhalation Q4HP PRN 12/18/22 01/11/23 History aerosol inhaler shortness of air or wheezing related to copd amitriptyline 25 mg tablet 25 mg PO HS mood 12/18/22 01/11/23 History apixaban 5 mg tablet (Eliquis) 5 mg PO BID prevents clots 12/18/22 01/11/23 History aspirin 81 mg capsule 81 mg PO DAILY prevents clots 11
--- NOTE | 2023-01-11 14:01 | PC.NURSE ---
13[address] DR HARDY ACCEPTS PT FOR ADMISSION [id number] CARE MANAGEMENT NOTIFIED OF ADMISSION
--- NOTE | 2023-01-11 14:16 | PC.NURSE ---
REPORT GIVEN TO FELIPA RAGLAND
[2023-01-11 14:42] LABS: Hemoglobin A1C 5.7 % (4.0-6.0)
--- NOTE | 2023-01-11 14:49 | PC.NURSE ---
pt being transported up for admission
[2023-01-11 16:06] LABS: Procalcitonin 0.051 ng/mL (0.0-2.0)
[2023-01-11 16:06] LABS: Troponin I < 0.01 ng/ml (0.00-0.034)
[2023-01-11 17:09] LABS: ABG Base Excess 7.7 mmol/L (-2.4-2.3); ABG HCO3 33.2 mmhg (22.0-26.0); ABG Oxygen Saturation 95 % (90-100); ABG PH 7.36 mmol/L (7.35-7.45); ABG PO2 76.7 mmhg (80-100); ABG TCO2 35.1 mmhg (23-27); Allen's Test Acceptable; Oxygen 35% %; Source Left Radial; Vent Rate 20
[2023-01-11 17:10] LABS: ABG PCO2 60.8 mmhg (35.0-45.0)
--- NOTE | 2023-01-11 17:10 | PC.NURSE ---
RESPIRATORY CARE NOTE: INCREASED BIPAP SETTINGS TO 16/6 GAVE DUO AND THEN PLACED ON 3.5L NC SATS=94%
[2023-01-11 17:56] LABS: Thyroid Stimulating Hormone 2.39 uIU/mL (0.465-4.68)
[2023-01-11 17:59] LABS: POC Glucose,Bedside 54 (70-110)
[2023-01-11 17:59] LABS: POC Glucose,Bedside 121 (70-110)
--- NOTE | 2023-01-11 18:22 | PC.NURSE ---
Pt stated to RN that daughter would like for the nurse to call her. attempted to contact pt daughter Concepción at [phone] 4 times from different phones. call will not connect or ring through. informed patient and provided number for pt daughter to call to speak with staff [phone]
--- NOTE | 2023-01-11 19:28 | PC.NURSE ---
Daughter called RN at number written in chart. Daughter states sometimes her phone does not register calls, so she is aware of this issue. Informed daughter of current POC and answered all questions at this time.
[2023-01-11 19:47] LABS: Troponin I < 0.01 ng/ml (0.00-0.034)
[2023-01-11 20:22] LABS: POC Glucose,Bedside 384 (70-110)
--- NOTE | 2023-01-11 21:00 | PC.NURSE ---
Offered to place pt on BiPAP, as discussed at beginning of shift. Pt stated it was too early and she would like to be placed on BiPAP closer to 2230. Pt educated necessity and benefits of BiPAP, pt verbalized. Pt currently on 4.5 L NC, SpO2 92-9%. Will notify RT if pt wants BiPAP before this time.
--- NOTE | 2023-01-11 22:20 | PC.NURSE ---
Placed pt on BiPAP (/, RR 20, 35% FiO2), currently SpO2 98%.
[2023-01-12] VITALS (16 sets, daily range): BP systolic 120–152; BP diastolic 62–88; PULSE 65–93; RESP 12–24; TEMP 36.7–37.6; O2SAT 92–100; BMI 41.5; BMI 41.2
--- NOTE | 2023-01-12 00:02 | PC.NURSE ---
Rounded on pt. Pt requesting to take break from BiPAP and asked for snack. Reeducated again necessity to limit ice chips and PO intake. Pt requires reeducation. Pt SpO2 98% on 4.5 L NC
--- NOTE | 2023-01-12 05:32 | PC.NURSE ---
Shift Summary: Pt AOx3 (x time) throughout shift. VSS on 3-4.5 L NC. Pt refused Q2 turns. Pt educated multiple times benefits of BiPAP, but pt asked for multiple breaks from BiPAP throughout shift. Pt currently on 3 L NC, SpO2 97-99%. Marte catheter in place. No acute events or issues overnight. Call light within reach, fall precautions implemented.
[2023-01-12 06:33] LABS: POC Glucose,Bedside 221 (70-110)
[2023-01-12 07:47] LABS: Basophils % 0.2 % (0.1-2.0); Eosinophils % 0.2 % (0.1-12.0); Hematocrit 31.1 % (37.0-47.0); Hemoglobin 9.2 g/dL (12.2-16.2); Lymphocytes # 1.2 K/mm3 (0.7-4.5); Lymphocytes % 17.5 % (10-50); Mean Corpuscular HGB Conc 29.7 g/dL (31.8-35.4); Mean Corpuscular Hemoglobin 23.5 pg (27.0-31.2); Mean Corpuscular Volume 79.2 fl (81-99); Mean Platelet Volume 8.8 fl (7.4-10.4); Monocytes # 0.8 K/mm3 (0.1-1.0); Monocytes % 11.9 % (1.7-9.3); Neutrophils # 4.9 K/mm3 (1.8-7.8); Neutrophils % 70.1 % (37.0-80.0); Platelet Count 266 K/mm3 (142-424); Red Blood Count 3.92 M/mm3 (4.20-5.40); Red Cell Distribution Width 20.1 % (11.5-17.5)
[2023-01-12 08:01] LABS: Chloride 88 mmol/L (98-107)
[2023-01-12 08:02] LABS: Potassium 4.5 mmoL/L (3.5-5.1); Sodium 133 mmol/L (136-145)
[2023-01-12 08:04] LABS: Blood Urea Nitrogen 24 mg/dl (7-17); Creatinine Clearance Estimated 43 mL/min (50-200); Estimated Glomerular Filt Rate 70 ml/min (>60); GFR (African American) 85 ML/MIN (>60)
[2023-01-12 08:05] LABS: Alanine Aminotransferase 24 U/L (12-78); Albumin Level 3.8 g/dl (3.5-5.0); Albumin/Globulin Ratio 1.3 (1.1-1.8); Alkaline Phosphatase 79 U/L (38-126); Aspartate Amino Transferase 38 U/L (14-36); Bilirubin,Total 0.4 mg/dl (0.2-1.3); Calcium 8.4 mg/dl (8.4-10.2); Globulin 2.9 g/dL (1.3-3.2); Glucose 196 mg/dl (74-100); Magnesium 1.9 mg/dl (1.6-2.3); Total Protein,Serum 6.7 g/dl (6.3-8.2)
[2023-01-12 08:24] LABS: Anion Gap 7.5 mEq/L (5-15); Carbon Dioxide 42 mmol/L (22.0-30.0)
--- NOTE | 2023-01-12 09:26 | P.CONPHA_ITS ---
Pharmacy Intervention Comments: MEDICATION RECONCILIATION COMPLETED ON PATIENT USING MAR FROM ALF. -MARGIE MERCADO, YOBANID
--- NOTE | 2023-01-12 09:26 | HMH.PHAINT1 ---
Pharmacy Intervention Comments: MEDICATION RECONCILIATION COMPLETED ON PATIENT USING MAR FROM PENITENTIARY. -MARGIE MERCADO, YOBANID
--- NOTE | 2023-01-12 09:27 | SW/DCPLANNER ---
Addendum entered by Elizabeth Ward 01/15/23 11:07: I have updated Lauryn w/ [facility] that patient will return today. Addendum entered by Elizabeth Ward 01/12/23 11:50: I have updated Lauryn w/ [facility] that patient will be ready for discharge tomorrow pending no setbacks. Original Note: This patient currently resides at [facility] level of care. I will continue to follow up w/ Lauryn at [facility] until patient is medically stable for discharge. Discharge date is unknown at this time.
--- NOTE | 2023-01-12 10:57 | EXP.ACUTE.PN ---
Subjective *Date: 01/12/23 *Time: 18:34 Interval history: Patient doing well today, at baseline mentation. Wore BiPAP for only an hour last night. Otherwise stable on her base FILTER PULP WASHER of 3 L. Diuresing well. -4 L since admission. Kidney function stable. No nausea or vomiting. Tolerating p.o. intake. Medical Exam Vital signs and Labs for Last 24 Hours: Vital Signs Temp Pulse Pulse Resp BP BP BP 01/12/23 10:00 74 14 150/77 H 01/12/23 08:00 01/12/23 08:00 70 01/12/23 08:00 98.1 F 01/12/23 06:43 01/12/23 06:21 92 H 01/12/23 06:21 78 01/12/23 06:00 74 12 135/77 01/12/23 05:00 01/12/23 04:00 78 16 01/12/23 04:00 99.6 F 78 16 126/72 01/12/23 04:00 80 01/12/23 02:00 76 18 127/62 01/12/23 03:00 01/12/23 01:00 01/12/23 00:00 80 01/11/23 23:11 01/12/23 00:28 84 01/12/23 00:28 93 H 01/12/23 00:00 98.6 F 82 20 152/73 H 01/11/23 23:00 01/11/23 22:00 93 H 18 140/70 01/11/23 21:00 90 01/11/23 21:00 01/11/23 20:00 96 H 24 01/11/23 20:00 97.7 F 95 H 24 133/107 H 01/11/23 18:51 01/11/23 18:58 88 01/11/23 18:58 81 01/11/23 18:58 01/11/23 18:27 86 26 H 129/92 H 01/11/23 15:00 65 01/11/23 16:00 65 01/11/23 17:00 83 22 158/95 H 01/11/23 16:00 66 22 140/84 01/11/23 17:00 01/11/23 15:00 01/11/23 15:15 97.6 F 72 17 171/84 H 01/11/23 14:50 97.9 F 74 20 162/78 H 01/11/23 14:31 74 16 162/78 H 01/11/23 14:02 66 14 165/70 H 01/11/23 13:31 63 15 142/66 H 01/11/23 13:01 15 136/62 01/11/23 12:31 51 L 13 150/82 H 01/11/23 12:01 74 11 L 140/88 01/11/23 13:56 01/11/23 11:41 97.9 F 83 21 152/83 H Pulse Ox O2 Del Method O2 Flow Rate FiO2 01/12/23 10:00 95 Nasal Cannula 2 01/12/23 08:00 100 Nasal Cannula 2 01/12/23 08:00 01/12/23 08:00 01/12/23 06:43 Nasal Cannula 3 01/12/23 06:21 01/12/23 06:21 01/12/23 06:00 97 Nasal Cannula 3 01/12/23 05:00 Nasal Cannula 3 01/12/23 04:00 96 Nasal Cannula 3 01/12/23 04:00 96 Nasal Cannula 3 01/12/23 04:00 01/12/23 02:00 95 Nasal Cannula 3 01/12/23 03:00 Nasal Cannula 3 01/12/23 01:00 BiPAP 01/12/23 00:00 01/11/23 23:11 35 01/12/23 00:28 01/12/23 00:28 01/12/23 00:00 98 Nasal Cannula 4.5 01/11/23 23:00 Nasal Cannula 4.5 01/11/23 22:00 96 Nasal Cannula 4.5 01/11/23 21:00 01/11/23 21:00 Nasal Cannula 4.5 01/11/23 20:00 96 Nasal Cannula 4.5 01/11/23 20:00 96 Nasal Cannula 4.5 01/11/23 18:51 Nasal Cannula 4.5 01/11/23 18:58 01/11/23 18:58 01/11/23 18:58 94 L Nasal Cannula 4.5 01/11/23 18:27 87 L Nasal Cannula 3 01/11/23 15:00 93 L Nasal Cannula 3 01/11/23 16:00 01/11/23 17:00 93 L Nasal Cannula 3 01/11/23 16:00 100 BiPAP 35 01/11/23 17:00 Nasal Cannula 4 01/11/23 15:00 BiPAP 01/11/23 15:15 95 BiPAP 01/11/23 14:50 Nasal Cannula 4 01/11/23 14:31 98 BiPAP 01/11/23 14:02 95 01/11/23 13:31 98 01/11/23 13:01 01/11/23 12:31 72 L 01/11/23 12:01 100 01/11/23 13:56 35 01/11/23 11:41 94 L Nasal Cannula 4 Intake and Output 01/11/23 01/12/23 01/12/23 23:59 07:59 15:59 Intake Total 240 / 740 500 / 1145 645 / 1145 Output Total 2900 / 4700 300 / 300 Balance -2660 / -3960 200 / 845 645 / 845 Intake: Intake, Oral Amount 240 / 740 500 / 1145 645 / 1145 Output: Output, Urine Amount 1300 / 1300 Output, Urine Amount (Catheter) 1600 / 3400 300 / 300 Marte 1600 / 3400 300 / 300 Other: Number of Unmeasured Voids 0 300 Weight 111.73 kg Patient Weight 01/12/23 23:59 Weight 111.73 kg Laboratory Results - last
--- NOTE | 2023-01-12 14:35 | HMH.PTEV ---
Physical Therapy Evaluation Rehab PT IP Evaluation Start: 01/12/23 10:55 Freq: ONCE Status: Active Protocol: Document 01/12/23 14:29 HAILEY (Rec: 01/12/23 14:35 HAILEY [id number]) Subjective/History History History Patient is a 72 year old female admitted to [facility] 01/11/23 from SNF for acute on chronic COPD exacerbation/resp failure. Patient previously ambulatory with RW per patient report prior to recent significant functional decline . Significant peripheral edema noted. Subjective Subjective I'll try and stand up, but I' m not sure I can. New diagnosis of cancer in past 12 No months? Rehab PT IP Eval Objective Appearance Patient Behavior Appropriate,Cooperative Patient Orientation Person,Place,Birthday Difficulty following instructions none Speech Pattern Clear,Appropriate Ambulation Patient Able to Ambulate No Balance Ability to Arise Able, uses arms to help Sitting Balance Steady, safe Standing Balance Steady, wide stance Dynamic Sitting Balance Ability Good Transfers Bed Transfer Ability Maximum x 1 (75% assist) Sit to Stand Bed Transfer Ability Minimal x 2 (25% assist) ROM All Extremities PT ROM Status WFL MMT All Extremities PT MMT WFL Rehab PT IP prob,goals,plan Problems Date of Evaluation: 01/12/23 PT IP Problems Bed Mobility,Transfers,Gait, Balance,Self care,Safety Rehab Potential Rehab Potential Good Equipment Needs Assistive Devices Rolling / Wheeled Walker Plan PT Intervention Plan Bed Mobility,Transfers,Gait, Balance,Self care,Safety, Therapeutic Exercise PT Plan Frequency BID Duration LOS Discharge Goals Bed Transfer Ability Contact Guard/Hand Hold Sit to Stand Chair Transfer Ability Contact Guard/Hand Hold, Minimal x 1 (25% assist) Ambulation Assistive Device Rolling Walker Ambulation Distance (feet) 20 Discharge Plan PT Discharge Plan PT suggests patient is good to discharge back to SNF to continue rehab when found medically stable by MD. Luna Complexity Eval Charge Codes 69679 - High Complexity
[2023-01-12 16:37] LABS: POC Glucose,Bedside 268 (70-110)
[2023-01-12 16:43] LABS: POC Glucose,Bedside 217 (70-110)
[2023-01-12 21:30] LABS: POC Glucose,Bedside 278 (70-110)
[2023-01-13] VITALS (13 sets, daily range): BP systolic 124–182; BP diastolic 64–95; PULSE 61–87; RESP 15–24; TEMP 36.3–37.1; O2SAT 3–100; BMI 40.4
--- NOTE | 2023-01-13 03:30 | PC.NURSE ---
F/C REMOVED AT 2100. PUREWICK IN PLACE. URINE DARK BUT CLEAR. BIPAP IN USE AT HS. AFIB ON TELE. NO C/O PAIN OR DISCOMFORT.
[2023-01-13 05:17] LABS: POC Glucose,Bedside 173 (70-110)
[2023-01-13 07:50] LABS: Chloride 87 mmol/L (98-107); Potassium 4.1 mmoL/L (3.5-5.1); Sodium 135 mmol/L (136-145)
[2023-01-13 07:52] LABS: Blood Urea Nitrogen 25 mg/dl (7-17); Creatinine Clearance Estimated 86 mL/min (50-200); Estimated Glomerular Filt Rate 70 ml/min (>60); GFR (African American) 85 ML/MIN (>60)
[2023-01-13 07:53] LABS: Alanine Aminotransferase 21 U/L (12-78); Albumin Level 3.6 g/dl (3.5-5.0); Albumin/Globulin Ratio 1.2 (1.1-1.8); Alkaline Phosphatase 67 U/L (38-126); Aspartate Amino Transferase 27 U/L (14-36); Bilirubin,Total 0.4 mg/dl (0.2-1.3); Calcium 8.7 mg/dl (8.4-10.2); Globulin 2.9 g/dL (1.3-3.2); Glucose 130 mg/dl (74-100); Magnesium 1.8 mg/dl (1.6-2.3); Total Protein,Serum 6.5 g/dl (6.3-8.2)
[2023-01-13 07:55] LABS: Basophils # 0.1 K/mm3 (0-0.2); Basophils % 0.7 % (0.1-2.0); Eosinophils # 0.1 K/mm3 (0.0-0.4); Eosinophils % 1.7 % (0.1-12.0); Hematocrit 32.4 % (37.0-47.0); Hemoglobin 9.5 g/dL (12.2-16.2); Lymphocytes # 1.9 K/mm3 (0.7-4.5); Lymphocytes % 25.5 % (10-50); Mean Corpuscular HGB Conc 29.4 g/dL (31.8-35.4); Mean Corpuscular Hemoglobin 23.6 pg (27.0-31.2); Mean Corpuscular Volume 80.5 fl (81-99); Mean Platelet Volume 9.2 fl (7.4-10.4); Monocytes # 0.9 K/mm3 (0.1-1.0); Monocytes % 11.5 % (1.7-9.3); Neutrophils # 4.5 K/mm3 (1.8-7.8); Neutrophils % 60.7 % (37.0-80.0); Platelet Count 241 K/mm3 (142-424); Red Blood Count 4.02 M/mm3 (4.20-5.40); Red Cell Distribution Width 19.9 % (11.5-17.5); White Blood Count 7.4 K/mm3 (4.8-10.8)
[2023-01-13 08:12] LABS: Anion Gap 10.1 mEq/L (5-15); Carbon Dioxide 42 mmol/L (22.0-30.0)
[2023-01-13 10:49] LABS: POC Glucose,Bedside 213 (70-110)
--- NOTE | 2023-01-13 14:33 | PC.NURSE ---
pt had a large unmeasured void.
[2023-01-13 16:20] LABS: POC Glucose,Bedside 285 (70-110)
--- NOTE | 2023-01-13 18:28 | EXP.PN ---
Subjective *Date: 01/13/23 *Time: 18:28 Interval history: patient was seen and evaluated at the bedside. denies chest pain, shortness of breath, nausea, vomiting, abdominal pain. Patient does not have any complaints at this time. feels better overall Exam Data for Last 24 hours Vital signs and Labs for Last 24 Hours: Temp Pulse Resp BP Pulse Ox O2 Del Method O2 Flow Rate 98.7 F 72 15 170/85 H 96 Nasal Cannula 3 01/13/23 16:00 01/13/23 16:00 01/13/23 16:00 01/13/23 16:00 01/13/23 16:00 01/13/23 16:00 01/13/23 16:00 FiO2 35 01/13/23 06:40 Laboratory Results - last 24 hr 01/12/23 20:54: POC Glucose 278 H 01/13/23 05:10: POC Glucose 173 H 01/13/23 07:01: WBC 7.4, RBC 4.02 L, Hgb 9.5 L, Hct 32.4 L, MCV 80.5 L, MCH 23.6 L, MCHC 29.4 L, RDW 19.9 H, Plt Count 241, MPV 9.2, Neut % (Auto) 60.7, Lymph % (Auto) 25.5, [place] % (Auto) 11.5 H, Eos % (Auto) 1.7, Baso % (Auto) 0.7, Neut # (Auto) 4.5, Lymph # (Auto) 1.9, [place] # (Auto) 0.9, Eos # (Auto) 0.1, Baso # (Auto) 0.1, Sodium 135 L, Potassium 4.1, Chloride 87 L, Carbon Dioxide 42 H*, Anion Gap 10.1, BUN 25 H, Creatinine 0.80, Estimated Creat Clear 86, Estimated GFR 70, Est GFR ( Amer) 85, Glucose 130 H, Calcium 8.7, Magnesium 1.8, Total Bilirubin 0.4, AST 27 D, ALT 21, Alkaline Phosphatase 67, Total Protein 6.5, Albumin 3.6, Globulin 2.9, Albumin/Globulin Ratio 1.2 01/13/23 10:42: POC Glucose 213 H 01/13/23 16:09: POC Glucose 285 H I & O for Last 24 hours: Intake & Output 01/10/23 01/11/23 01/12/23 01/13/23 23:59 23:59 23:59 23:59 Intake Total 240 / 740 1865 / 1865 480 / 480 Output Total 4400 / 4700 4300 / 4300 2200 / 2200 Balance -4160 / -3960 -2435 / -2435 -1720 / -1720 Weight 111.329 kg 111 kg 108.59 kg Constitutional Constitutional: no acute distress *Routine HEENT Exam Head: Present normocephalic Eye: Present EOMI and PERRL ENT: Present mucous membranes moist *Routine Neck Exam Neck: Present supple; Absent lymphadenopathy *Routine Respiratory Exam Respiratory: Present CTA bilaterally *Routine Cardiovascular Exam Cardiovascular: Present RRR *Routine Abdominal Exam Abdominal: Present soft and normoactive bowel sounds; Absent tenderness *Routine Extremities Exam Extremities: Absent cyanosis, clubbing or edema *Routine Skin Exam Skin: Present warm; Absent rash *Routine Neurological Exam Neurological: Present alert and oriented X3 Assessment and Plan *Assessment and plan (1) Acute exacerbation of chronic obstructive airways disease: Status: Acute Category: Medical Code(s): J44.1 - Chronic obstructive pulmonary disease with (acute) exacerbation (2) Acute on chronic respiratory failure with hypoxia and hypercapnia: Status: Acute Category: Medical Code(s): J96.21 - Acute and chronic respiratory failure with hypoxia; J96.22 - Acute and chronic respiratory failure with hypercapnia (3) Acute exacerbation of chronic obstructive pulmonary disease: Status: Acute Category: Medical Code(s): J44.1 - Chronic obstructive pulmonary disease with (acute) exacerbation (4) HTN (hypertension): Status: Acute Category: Medical Code(s): I10 - Essential (primary) hypertension (5) Depression: Status: Acute Category: Medical Code(s): F32.A - Depression, unspecified (6) Diabetes mellitus type 2 in obese: Status: Acute Category: Medical Code(s): E11.69 - Type 2 diabetes mellitus with other specified complication; E66.9 - Obesity, unspecified (7) Anxiety: Status: Acute Category: Medical Code(s): F41.9 - Anxiety disorder, unspecified Plan 72-year-old female who presented from [facility] with confusion and increased oxygen requirement. Found to be hypercapnic with CHF exacerbation. Acute on chronic CHF Chronic A-fib Chronic anticoagulation -Patient significantly volume overloaded, diuresing well, -4 L since
--- NOTE | 2023-01-13 19:04 | PC.NURSE ---
Patient A&Ox4 and VSS. Patient cooperative and compliant with care one time c/o pain this shift.
[2023-01-14] VITALS (15 sets, daily range): BP systolic 131–182; BP diastolic 74–95; PULSE 60–104; RESP 15–24; TEMP 36.5–37.1; O2SAT 93–100; BMI 38.3
[2023-01-14 00:55] LABS: POC Glucose,Bedside 326 (70-110)
[2023-01-14 06:04] LABS: POC Glucose,Bedside 226 (70-110)
--- NOTE | 2023-01-14 06:06 | PC.NURSE ---
Patient alert and oriented this shift. Remains on 3L NC with o2 sats above 90%. Patient refused biPap this shift. Educated on importance. Vitals WNL. Call cordero and personal items in reach.
[2023-01-14 07:41] LABS: Chloride 84 mmol/L (98-107); Potassium 3.9 mmoL/L (3.5-5.1); Sodium 135 mmol/L (136-145)
[2023-01-14 07:44] LABS: Alanine Aminotransferase 22 U/L (12-78); Albumin Level 3.6 g/dl (3.5-5.0); Albumin/Globulin Ratio 1.2 (1.1-1.8); Alkaline Phosphatase 69 U/L (38-126); Aspartate Amino Transferase 28 U/L (14-36); Bilirubin,Total 0.4 mg/dl (0.2-1.3); Blood Urea Nitrogen 26 mg/dl (7-17); Creatinine Clearance Estimated 82 mL/min (50-200); Estimated Glomerular Filt Rate 70 ml/min (>60); GFR (African American) 85 ML/MIN (>60); Total Protein,Serum 6.6 g/dl (6.3-8.2)
[2023-01-14 07:45] LABS: Calcium 8.7 mg/dl (8.4-10.2); Glucose 234 mg/dl (74-100)
[2023-01-14 07:54] LABS: Anion Gap 8.9 mEq/L (5-15); Carbon Dioxide 46 mmol/L (22.0-30.0)
--- NOTE | 2023-01-14 17:24 | PC.NURSE ---
Pt has remained minimally responsive this shift. pt is noted to occasionally move her arm in the bed. pt spontaneously opens her eyes as well but does not follow commands or make eye contact with staff or visitors. pt has had son, daughter and grandson at bedside this shift. staff has remained with pt while son is present in room. lungs are less congested sounding this evening compared to this am. pt was deep suctioned once in the late morning. pt has heel protectors in place, feel elevated on pillows, arms elevated on pillows as well. pt is currently on 35% venti mask.
--- NOTE | 2023-01-14 17:32 | PC.NURSE ---
Pt has appeared to rest well in her room this shift. she has remained in bed, pt was offered assistance to get up to the chair before or during her meals, pt refuses to get up to the chair. pt currently voids per purwick. nad noted. lung sounds are clear throughout, bowel sounds are active in all quads.
--- NOTE | 2023-01-14 18:08 | EXP.PN ---
Subjective *Date: 01/14/23 *Time: 18:08 Interval history: patient was seen and evaluated at the bedside. denies chest pain, shortness of breath, nausea, vomiting, abdominal pain. Patient does not have any complaints at this time. feels better overall Exam Data for Last 24 hours Vital signs and Labs for Last 24 Hours: Temp Pulse Resp BP Pulse Ox O2 Del Method O2 Flow Rate 98.5 F 85 18 134/75 93 L Nasal Cannula 3 01/14/23 15:10 01/14/23 16:00 01/14/23 15:10 01/14/23 15:10 01/14/23 15:10 01/14/23 17:32 01/14/23 17:32 FiO2 35 01/13/23 06:40 Laboratory Results - last 24 hr 01/13/23 20:22: POC Glucose 326 H* 01/14/23 05:57: POC Glucose 226 H 01/14/23 07:06: Sodium 135 L, Potassium 3.9, Chloride 84 L, Carbon Dioxide 46 H*, Anion Gap 8.9, BUN 26 H, Creatinine 0.80, Estimated Creat Clear 82, Estimated GFR 70, Est GFR ( Amer) 85, Glucose 234 H, Calcium 8.7, Total Bilirubin 0.4, AST 28, ALT 22, Alkaline Phosphatase 69, Total Protein 6.6, Albumin 3.6, Globulin 3.0, Albumin/Globulin Ratio 1.2 I & O for Last 24 hours: Intake & Output 01/11/23 01/12/23 01/13/23 01/14/23 23:59 23:59 23:59 23:59 Intake Total 240 / 740 1865 / 1865 840 / 840 600 / 600 Output Total 4400 / 4700 4300 / 4300 3500 / 3500 4000 / 4000 Balance -4160 / -3960 -2435 / -2435 -2660 / -2660 -3400 / -3400 Weight 111.329 kg 111 kg 108.59 kg 103.147 kg Constitutional Constitutional: no acute distress *Routine HEENT Exam Head: Present normocephalic Eye: Present EOMI and PERRL ENT: Present mucous membranes moist *Routine Neck Exam Neck: Present supple; Absent lymphadenopathy *Routine Respiratory Exam Respiratory: Present CTA bilaterally *Routine Cardiovascular Exam Cardiovascular: Present RRR *Routine Abdominal Exam Abdominal: Present soft and normoactive bowel sounds; Absent tenderness *Routine Extremities Exam Extremities: Absent cyanosis, clubbing or edema *Routine Skin Exam Skin: Present warm; Absent rash *Routine Neurological Exam Neurological: Present alert and oriented X3 Assessment and Plan *Assessment and plan (1) Acute exacerbation of chronic obstructive airways disease: Status: Acute Category: Medical Code(s): J44.1 - Chronic obstructive pulmonary disease with (acute) exacerbation (2) Acute on chronic respiratory failure with hypoxia and hypercapnia: Status: Acute Category: Medical Code(s): J96.21 - Acute and chronic respiratory failure with hypoxia; J96.22 - Acute and chronic respiratory failure with hypercapnia (3) Acute exacerbation of chronic obstructive pulmonary disease: Status: Acute Category: Medical Code(s): J44.1 - Chronic obstructive pulmonary disease with (acute) exacerbation (4) HTN (hypertension): Status: Acute Category: Medical Code(s): I10 - Essential (primary) hypertension (5) Depression: Status: Acute Category: Medical Code(s): F32.A - Depression, unspecified (6) Diabetes mellitus type 2 in obese: Status: Acute Category: Medical Code(s): E11.69 - Type 2 diabetes mellitus with other specified complication; E66.9 - Obesity, unspecified (7) Anxiety: Status: Acute Category: Medical Code(s): F41.9 - Anxiety disorder, unspecified Plan 72-year-old female who presented from [facility] with confusion and increased oxygen requirement. Found to be hypercapnic with CHF exacerbation. Acute on chronic CHF Chronic A-fib Chronic anticoagulation -Patient significantly volume overloaded, diuresing well, -4 L since admission. - Lasix 40 mg IV twice daily. Recommend switching to Bumex 1 mg p.o. twice daily at discharge - Goal output -1 to 2 L a day. We will monitor electrolytes and kidney function closely. -Sodium 133, potassium 4.5, magnesium 1.9. Kidney function stable with BUN 24, creatinine 0.8. Repeat CBC, CMP, magnesium ordered for the morning. -Continue
[2023-01-14 20:58] LABS: POC Glucose,Bedside 385 (70-110)
[2023-01-15] VITALS (7 sets, daily range): BP systolic 122–145; BP diastolic 62–84; PULSE 72–85; RESP 17–24; TEMP 36.8–36.9; O2SAT 94–100; BMI 36.8
--- NOTE | 2023-01-15 05:20 | PC.NURSE ---
Patient alert and oriented this shift. Rested well. No complaints noted. Patient remains on 3L NC with o2 sats greater than 90%. Patient refuses biPap this shift. Call cordero and personal items in reach POC ongoing.
[2023-01-15 06:42] LABS: Chloride 81 mmol/L (98-107); Sodium 133 mmol/L (136-145)
[2023-01-15 06:44] LABS: Alanine Aminotransferase 22 U/L (12-78); Aspartate Amino Transferase 29 U/L (14-36); Blood Urea Nitrogen 30 mg/dl (7-17); Creatinine Clearance Estimated 78 mL/min (50-200); Estimated Glomerular Filt Rate 82 ml/min (>60); GFR (African American) 99 ML/MIN (>60)
[2023-01-15 06:45] LABS: Albumin Level 3.8 g/dl (3.5-5.0); Albumin/Globulin Ratio 1.2 (1.1-1.8); Alkaline Phosphatase 73 U/L (38-126); Bilirubin,Total 0.4 mg/dl (0.2-1.3); Globulin 3.1 g/dL (1.3-3.2); Glucose 191 mg/dl (74-100); Total Protein,Serum 6.9 g/dl (6.3-8.2)
[2023-01-15 07:09] LABS: Carbon Dioxide 48 mmol/L (22.0-30.0)
--- NOTE | 2023-01-15 11:55 | EXP.DC.SUM ---
General Admission date:: 01/11/23 Discharge date: 01/15/23 HPI HPI HPI: Ms. Mesa is a 72-year-old female who presented from [facility] due to increased shortness of breath and confusion. On arrival to the ER, was concern for significant swelling in her legs and increased oxygen requirement. Chronically on 3 L nasal cannula at the [facility]. Mental status was mildly altered. She was initiated on BiPAP after an ABG was obtained showing mild hypercapnia and mild respiratory acidosis. Diuresed with Lasix x 1 @ 40 mg IV. Necessitating significant stimulation to awaken and answer questions. ER consulted medicine for admission due to altered mental status and hypercapnic respiratory failure. After arrival to the floor. Patient's history is significant for hypertension, hyperlipidemia, diabetes, CAD, A-fib on Eliquis, CHF, lymphedema, COPD on 3 L nasal cannula continuously. Denies any nausea or vomiting. No fever or chills. No cough. Tolerating BiPAP with some improvement in mentation. On evaluation, patient will arouse to voice but falls back asleep easily. Appears volume overloaded with significant peripheral edema. Complains of some shortness of breath. Hospital Course Hospital Course Hospital Course: Patient was seen and evaluated at the bedside on the day of discharge. Patient is stable for discharge. Patient wishes to be discharged. All patient questions were answered and patient was given time to ask questions. Patient was discharged in stable condition. Patient understands that she can return to ER in case of any sudden changes in health. Total time spent on DC - 38 mins 72-year-old female who presented from [facility] with confusion and increased oxygen requirement. Found to be hypercapnic with CHF exacerbation. Acute on chronic CHF - improved Chronic A-fib Chronic anticoagulation -Continue Eliquis 5 mg twice daily, continue aspirin 81 mg daily, continue carvedilol 3.125 mg twice daily, continue lisinopril 2.5 mg daily COPD - stable Iron deficient anemia: - Hemoglobin 9, no signs of bleeding. MCV 80. Continue home iron supplementation. Diabetes: -A1c 5.7; Fingersticks ACHS, sliding scale insulin. Hold home glargine in the setting of normal A1c Continue home medications for chronic conditions as follows -Trazodone 50 mg nightly for sleep -Crestor 10 mg nightly for cholesterol -Continue bowel regimen with MiraLAX and docusate -Continue Paxil 30 mg nightly -Continue PPI nightly -Continue BuSpar 10 mg nightly -Continue amitriptyline 25 mg nightly Full code Diabetic diet Eliquis 5 mg twice daily continue diuresis, dc 1-2days Exam Data for Last 24 hours Vital signs and Labs for Last 24 Hours: Temp Pulse Resp BP Pulse Ox O2 Del Method O2 Flow Rate 98.2 F 77 17 136/62 98 Nasal Cannula 3 01/15/23 08:00 01/15/23 08:00 01/15/23 08:00 01/15/23 08:00 01/15/23 08:00 01/15/23 09:00 01/15/23 09:00 FiO2 32 01/14/23 18:34 Laboratory Results - last 24 hr 01/14/23 20:18: POC Glucose 385 H* 01/15/23 06:19: Sodium 133 L, Potassium 4.0, Chloride 81 L, Carbon Dioxide 48 H*, Anion Gap 8.0, BUN 30 H, Creatinine 0.70, Estimated Creat Clear 78, Estimated GFR 82, Est GFR ( Amer) 99, Glucose 191 H, Calcium 9.0, Total Bilirubin 0.4, AST 29, ALT 22, Alkaline Phosphatase 73, Total Protein 6.9, Albumin 3.8, Globulin 3.1, Albumin/Globulin Ratio 1.2 I & O for Last 24 hours: Intake & Output 01/12/23 01/13/23 01/14/23 01/15/23 23:59 23:59 23:59 23:59 Intake Total 1865 / 1865 840 / 840 600 / 600 460 / 460 Output Total 4300 / 4300 3500 / 3500 6200 / 6200 2600 / 2600 Balance -2435 / -2435 -2660 / -2660 -5600 / -5600 -2140 / -2140 Weight 111 kg 108.59 kg 103.147 kg 99.11 kg Constitutional Constitutional: no acute distress *Routine HEENT Exam Head: Present normocephalic Eye: Present EOMI and PERRL ENT: Present mucous membranes moist *Routine Neck Exam
--- NOTE | 2023-01-15 12:49 | PC.NURSE ---
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
--- NOTE | 2023-01-15 12:59 | PC.NURSE ---
home meds and earrings returned to patient
--- NOTE | 2023-01-15 13:12 | PC.NURSE ---
notified EMS that pt ready and PA complete, EMS stated would be up soon
[2023-01-16 00:07] LABS: POC Glucose,Bedside 201 (70-110)
[2023-01-17 11:24] LABS: POC Glucose,Bedside 239 (70-110)
[2023-01-17 11:24] LABS: POC Glucose,Bedside 251 (70-110)
[2023-01-17 11:24] LABS: POC Glucose,Bedside 348 (70-110)
== END 2023-01-15 14:32 | DRG 291 ==
LOC: ER 13:50 → 2ND 14:05
PROVIDERS: Admitting Provider Internal Medicine Adolescent Medicine; Emergency Provider Emergency Medicine; PCP Internal Medicine; Visit Provider Internal Medicine Adolescent Medicine
DX: I11.0 Hypertensive heart disease with heart failure (principal); I50.33 Acute on chronic diastolic (congestive) heart failure; J96.21 Acute and chronic respiratory failure with hypoxia; J96.22 Acute and chronic respiratory failure with hypercapnia; J44.1 Chronic obstructive pulmonary disease with (acute) exacerbation; I48.20 Chronic atrial fibrillation, unspecified; F32.A Depression, unspecified; E11.69 Type 2 diabetes mellitus with other specified complication; E66.9 Obesity, unspecified; F41.9 Anxiety disorder, unspecified; Z99.81 Dependence on supplemental oxygen; I50.9 Heart failure, unspecified; E78.5 Hyperlipidemia, unspecified; Z79.4 Long term (current) use of insulin; Z68.36 Body mass index [BMI] 36.0-36.9, adult; M19.90 Unspecified osteoarthritis, unspecified site; Z87.891 Personal history of nicotine dependence; M79.7 Fibromyalgia; Z95.5 Presence of coronary angioplasty implant and graft; D50.9 Iron deficiency anemia, unspecified
CPT/HCPCS: 36415; 51702; 71045; 80053; 82803; 82962; 83036; 83605; 83735; 83880; 84145; 84436; 84443; 84484; 85025; 87636; 93005; 94640; 94660; 94761; 97163; 97530; 99291; G0378

== ENCOUNTER → 2023-01-23 21:25 | Outpatient (CLI) | payer MEDICARE, SELFPAY ==
[2023-01-23 21:36] LABS: Microscopic, Urine URINE MICROSCOPIC (MICROSCOPIC)
[2023-01-23 21:40] LABS: Appearance,Urine CLEAR (Clear); Bilirubin,Urine Negative (Negative); Blood, Urine Negative (Negative); Color,Urine YELLOW (Yellow); Glucose,Urine (UA) Negative (Negative); Ketones,Urine Negative (Negative); Leukocyte Esterase,Urine Negative (Negative); Nitrate,Urine Negative (Negative); Protein,Urine Negative (Negative); Urobilinogen,Urine 0.2 EU/dl (0.2)
[2023-01-23 22:01] LABS: Squamous Epithelial Cell,Urine Occasional #/hpf (0-5); WBC,Urine Occasional #/hpf (0-3)
== END ==
LOC: LAB.DROPOF 21:27
PROVIDERS: Nurse Practitioner Family; PCP Internal Medicine Adolescent Medicine; Visit Provider Internal Medicine Adolescent Medicine
DX: R30.0 Dysuria (principal)
CPT/HCPCS: 81001

== ENCOUNTER → 2023-01-25 07:57 | Outpatient (CLI) | payer MEDICARE, SELFPAY ==
[2023-01-25 11:40] LABS: Anion Gap 10.1 mEq/L (5-15); Blood Urea Nitrogen 22 mg/dl (7-17); Calcium 8.5 mg/dl (8.4-10.2); Carbon Dioxide 30 mmol/L (22.0-30.0); Chloride 96 mmol/L (98-107); Estimated Glomerular Filt Rate 70 ml/min (>60); GFR (African American) 85 ML/MIN (>60); Glucose 202 mg/dl (74-100); Potassium 5.1 mmoL/L (3.5-5.1); Sodium 131 mmol/L (136-145)
== END ==
LOC: LAB.DROPOF 08:00
PROVIDERS: PCP Nurse Practitioner Family; Visit Provider Nurse Practitioner Family
DX: I10 Essential (primary) hypertension (principal)
CPT/HCPCS: 80048

== ENCOUNTER 2023-01-30 14:48 | Emergency (ER) | payer MEDICARE, SELFPAY ==
[2023-01-30 14:45] VITALS: BP 122/63; PULSE 82; RESP 22; TEMP 36.8; O2SAT 92; BMI 41.5
--- NOTE | 2023-01-30 14:47 | ECG_ITS ---
APPROVED REPORT Exam: Resting ECG HR:73 bpm ECG Measurements Heart Rate 73 AXES QRSd 107 QRS 106 QT 412 T 65 QTc 437 Conclusion ATRIAL FIBRILLATION WITH ABERRANT CONDUCTION OR VENTRICULAR PREMATURE COMPLEXES RIGHT AXIS DEVIATION [QRS AXIS > 100] MODERATE ST DEPRESSION [0.05+ mV ST DEPRESSION] ABNORMAL ECG UNCONFIRMED REPORT Electronically signed by : Kristian Bynum MD 01/31/2023 09:01:08
[2023-01-30 15:30] VITALS: BP 123/68; PULSE 80; O2SAT 98
--- NOTE | 2023-01-30 15:39 | XR_ITS ---
FINAL REPORT CLINICAL HISTORY: SOA COMPARISON: 01/11/2023 FINDINGS: SINGLE-VIEW CHEST The heart size is normal. The mediastinum is normal. The lungs are clear. There is no pneumothorax. IMPRESSION: No acute cardiopulmonary process. Reviewed, Interpreted and Dictated by Roque Cantu MD Transcribed by Cass Pérez Authenticated and [facility]
[2023-01-30 15:45] VITALS: BP 166/75; PULSE 85; RESP 20; TEMP 37; O2SAT 96
[2023-01-30 15:47] LABS: Chloride 94 mmol/L (98-107); Potassium 4.6 mmoL/L (3.5-5.1); Sodium 135 mmol/L (136-145)
[2023-01-30 15:48] LABS: Basophils % 0.5 % (0.1-2.0); Eosinophils # 0.2 K/mm3 (0.0-0.4); Eosinophils % 2.7 % (0.1-12.0); Hematocrit 34.2 % (37.0-47.0); Hemoglobin 10.6 g/dL (12.2-16.2); Lymphocytes # 1.5 K/mm3 (0.7-4.5); Lymphocytes % 17.8 % (10-50); Mean Corpuscular HGB Conc 30.9 g/dL (31.8-35.4); Mean Corpuscular Hemoglobin 23.8 pg (27.0-31.2); Mean Corpuscular Volume 77.2 fl (81-99); Mean Platelet Volume 8.5 fl (7.4-10.4); Monocytes # 0.6 K/mm3 (0.1-1.0); Neutrophils # 6.2 K/mm3 (1.8-7.8); Platelet Count 422 K/mm3 (142-424); Red Blood Count 4.43 M/mm3 (4.20-5.40); Red Cell Distribution Width 19.2 % (11.5-17.5); White Blood Count 8.6 K/mm3 (4.8-10.8)
--- NOTE | 2023-01-30 15:48 | PC.NURSE ---
rad at bedside
[2023-01-30 15:49] LABS: Alanine Aminotransferase 24 U/L (12-78); Alkaline Phosphatase 72 U/L (38-126); Aspartate Amino Transferase 38 U/L (14-36); Bilirubin,Total 0.3 mg/dl (0.2-1.3); Blood Urea Nitrogen 23 mg/dl (7-17); Creatinine Clearance Estimated 43 mL/min (50-200); Estimated Glomerular Filt Rate 61 ml/min (>60); GFR (African American) 74 ML/MIN (>60)
[2023-01-30 15:50] LABS: Albumin/Globulin Ratio 1.3 (1.1-1.8); Anion Gap 10.6 mEq/L (5-15); Calcium 8.9 mg/dl (8.4-10.2); Carbon Dioxide 35 mmol/L (22.0-30.0); Globulin 3.1 g/dL (1.3-3.2); Glucose 86 mg/dl (74-100); Total Protein,Serum 7.1 g/dl (6.3-8.2)
[2023-01-30 15:59] LABS: NT Pro Brain Natriuretic Pep. 1510 pg/mL (0-125)
[2023-01-30 16:00] VITALS: BP 119/70; PULSE 68; O2SAT 100
--- NOTE | 2023-01-30 16:02 | HMH.EDCP ---
Discharge Plan Disposition Patient Disposition: Xfer [facility] Condition: Good Prescriptions Prescriptions: No Action ergocalciferol (vitamin D2) 1,250 mcg (50,000 unit) capsule 1,250 mcg PO MO Patient Comments: TAKE 1 CAPSULE BY MOUTH EVERY TWO WEEKS (TWICE A MONTH) lisinopril 5 mg tablet 2.5 mg PO DAILY Spiriva Respimat 2.5 mcg/actuation mist 1 puff INHALATION DAILY rosuvastatin 10 mg tablet 10 mg PO HS albuterol sulfate 90 mcg/actuation HFA aerosol inhaler 2 puff INHALATION Q4HP PRN (Reason: shortness of air or wheezing related to copd) carvedilol 3.125 mg tablet 3.125 mg PO BID budesonide-formoterol [Symbicort] 160-4.5 mcg/actuation HFA aerosol inhaler 2 puff INHALATION BID multivitamin Tablet 1 tab PO DAILY trazodone 50 mg tablet 50 mg PO HS polyethylene glycol 3350 [Miralax] 17 gram Powder In Packet 17 g PO DAILY omeprazole 40 mg Capsule,Delayed Release(Dr/Ec) 40 mg PO HS icosapent ethyl [Vascepa] 1 gram Capsule 1 g PO BID amitriptyline 25 mg Tablet 25 mg PO HS buspirone 10 mg Tablet 10 mg PO BID docusate sodium 100 mg Tablet 100 mg PO BID ferrous sulfate 324 mg (65 mg iron) Tablet,Delayed Release (Dr/Ec) 324 mg PO DAILY Eliquis 5 mg Tablet 5 mg PO BID aspirin 81 mg Capsule 81 mg PO DAILY acetaminophen [Tylenol Extra Strength] 500 mg Tablet 1,000 mg PO Q6HP PRN (Reason: Mild Pain (Scale Score 1-4)) nitroglycerin 0.4 mg Tablet, Sublingual 0.4 mg SUBLINGUAL Q5MINP PRN (Reason: Chest Pain) Rx Instructions: do not exceed 3 doses per episode potassium chloride 10 mEq Tablet,Er Particles/Crystals 10 meq PO DAILY insulin lispro 100 unit/mL Insulin Pen 0 sliding scale dose SQ ACHS albuterol sulfate 2.5 mg /3 mL (0.083 %) Solution For Nebulization 2.5 mg inhalation Q4HP PRN (Reason: shortness of air or wheezing) acetaminophen 500 mg Tablet 500 mg PO AC gabapentin 300 mg Capsule 300 mg PO BID paroxetine HCl 40 mg Tablet 40 mg PO HS oxymetazoline [Afrin Sinus (oxymetazoline)] 0.05 % Adah,Non-Aerosol 2 spray INTRANASAL Q12HP PRN (Reason: Nasal Congestion) metolazone 2.5 mg tablet 2.5 mg PO DAILY hydrocodone-acetaminophen 5-325 mg tablet 1 tab PO BIDP PRN (Reason: Moderate Pain (Scale Score 5-6)) bumetanide 1 mg tablet See Rx Instructions .ROUTE .COMPLEX Qty: 60 0RF Rx Instructions: 1 mg orally 0800, 1400 daily insulin glargine 100 unit/mL (3 mL) Insulin Pen 20 unit SQ HS 30 Days Qty: 0 0RF prednisone 20 mg Tablet 40 mg PO DAILY 5 Days Qty: 10 0RF Referrals Follow up/Referrals: Provider,Referral, MD [Primary Care Provider] - See instructions Activity Restrictions/Add. Instructions Additional Instructions/Restrictions: You were evaluated in the emergency department today. Your workup was reassuring. Please continue taking your prescriptions at home as prescribed. Follow-up with your primary care provider. Return to the emergency department for new or worsening symptoms. Clinical Impressions Clinical Impression: Chronic hypoxemic respiratory failure Instructions Patient Instructions: DI for Heart Failure, DI for Chronic Obstructive Pulmonary Disease Discharge ED Provider: Nicole Tsang HPI General Chief Complaint: Shortness of Breath/Dyspnea Stated Complaint: Shortness of breath Time Seen by Provider: 01/30/23 15:09 Mode of Arrival: EMS Source of Information: Patient Limitations: No Limitations Description of Symptoms (Recalled from ER Triage Doc. by RN): Patient complaint of increased swelling and shortness of breath. Per [facility] patient is non compliant with fluid restriction, elevation of brown legs and oxygen requirements. History of Present Illness HPI narrative: This patient is a 72-year-old female with a history of chronic respiratory failure on 3 L nasal cannula,
[2023-01-30 16:28] LABS: Troponin I < 0.01 ng/ml (0.00-0.034)
[2023-01-30 16:30] VITALS: BP 122/85; PULSE 63; O2SAT 98
--- NOTE | 2023-01-30 16:44 | PC.NURSE ---
Report called to WILBER Nunez at [facility].
--- NOTE | 2023-01-30 16:51 | PC.NURSE ---
Pt brief changed due to urinary incontinence
--- NOTE | 2023-01-30 17:00 | PC.NURSE ---
Called [facility] for pt transport back to [place]
== END 2023-01-30 17:38 ==
PROVIDERS: Emergency Provider Emergency Medicine
DX: J96.11 Chronic respiratory failure with hypoxia (principal); I50.9 Heart failure, unspecified; J44.9 Chronic obstructive pulmonary disease, unspecified; I49.1 Atrial premature depolarization; E11.9 Type 2 diabetes mellitus without complications; I10 Essential (primary) hypertension; E78.5 Hyperlipidemia, unspecified; Z87.891 Personal history of nicotine dependence
CPT/HCPCS: 71045; 80053; 83880; 84484; 85025; 93005; 99285

== ENCOUNTER 2023-03-12 10:32 | Inpatient (IN) | payer MEDICARE, SELFPAY ==
[2023-03-12] VITALS (15 sets, daily range): BP systolic 100–136; BP diastolic 58–74; PULSE 66–112; RESP 16–22; TEMP 36.7–37.1; O2SAT 91–99; BMI 29.2; BMI 38.5
--- NOTE | 2023-03-12 10:34 | CT_ITS ---
FINAL REPORT CLINICAL HISTORY: AMS, less responsive than usual COMPARISON: None FINDINGS: Axial images of the head were obtained without contrast. Coronal reformatted images were also obtained.This study was performed with techniques to keep radiation doses as low as reasonably achievable (ALARA). Individualized dose reduction techniques using automated exposure control or adjustment of mA and/or kV according to the patient's size were employed. There are chronic bilateral lacunar infarcts. There is no evidence of acute intracranial hemorrhage or mass. There is a right frontal calcification measuring approximately 3 mm which may represent sequela from prior hemorrhage or infection. The ventricular size is within normal limits. There is no evidence of shift of the midline structures. No abnormal extra axial fluid collection is identified. No skull abnormality is seen on the bone window images. There is mild mucosal thickening in the left maxillary sinus IMPRESSION: Right frontal calcification may represent sequela from prior hemorrhage or infection. If indicated, follow-up CT could be obtained to evaluate for stability Reviewed, Interpreted and Dictated by Delfino Ruth III, MD Transcribed by Mayra Rios Authenticated and [facility]
--- NOTE | 2023-03-12 10:34 | XR_ITS ---
FINAL REPORT CLINICAL HISTORY: Shortness of breath, resp failure COMPARISON: 01/30/2023 FINDINGS: A single portable view of the chest was obtained. The heart size and pulmonary vascularity are within normal limits. The mediastinum is within normal limits. Worsening right base opacities are consistent with worsening pneumonia or atelectasis. The bony thorax is intact. IMPRESSION: Worsening right base pneumonia or atelectasis. Reviewed, Interpreted and Dictated by Delfino Ruth III, MD Transcribed by Mayra Rios Authenticated and [facility]
[2023-03-12 10:41] LABS: Coronavirus 19, PCR Not Detected (NotDetected); Influenza A, PCR Not Detected (NotDetected); Influenza B, PCR Not Detected (NotDetected)
[2023-03-12] MEDS: IPRATROPIUM/ALBUTEROL 3 ML NEB 9 ML IH (10:55)
--- NOTE | 2023-03-12 10:58 | HMH.EDGENADL ---
Discharge Plan Disposition Patient Disposition: Admitted Clinical Impressions Clinical Impression: Sepsis due to pneumonia, Acute on chronic respiratory failure with hypoxia and hypercapnia, Elevated troponin, CHF (congestive heart failure) Discharge ED Provider: Nicole Tsang General Adult HPI General Chief complaint: Altered Mental Status Stated complaint: low O2 sat Time Seen by Provider: 03/12/23 10:34 Mode of Arrival: EMS Source of Information: EMS and Medical Record Limitations: No Limitations Description of Symptoms (Recalled from ER Triage Doc. by RN): Pt. arrived via EMS from [facility]. Report from [facility] that pt was found with decreased LOC and O2 sats in the 60s. NRB placed by EMS brought O2 to 97%. Upon arrival pt still with decreased LOC. Bilateral lower extremity noted. History of Present Illness HPI narrative: This patient is a 72-year-old female with a history of chronic respiratory failure on 3 L nasal cannula, CHF, COPD, atrial fibrillation on Eliquis, insulin-dependent diabetes, GERD, hypertension, and hyperlipidemia presented to the emergency department for evaluation with concern for AMS and low O2 saturation. Per the nursing facility, when they checked on the patient this morning, she had her BiPAP off and was confused. Her oxygen saturation was in the 70s. Given this, they called EMS. EMS put the patient on a nonrebreather with oxygen saturation in the mid 90s en route. Patient also had mild tachycardia. Otherwise, vitals are reassuring. On medical record review, patient has had frequent recent admissions for respiratory failure. She has chronic lower extremity swelling and chronic issues with compliance with her BiPAP. Patient does not contribute much to history at this time given that she is altered. Related Data Home Medications Medication Instructions Recorded Confirmed ergocalciferol (vitamin D2) 1,250 1,250 mcg PO MO Supplement 08/12/20 03/12/23 mcg (50,000 unit) capsule lisinopril 5 mg tablet 2.5 mg PO DAILY High Blood Pressure 08/12/20 03/12/23 rosuvastatin 10 mg tablet 10 mg PO HS Cholesterol 08/12/20 03/12/23 tiotropium bromide 2.5 1 puff inhalation DAILY Breathing 08/12/20 03/12/23 mcg/actuation mist for inhalation Problems (Spiriva Respimat) acetaminophen 500 mg tablet 1,000 mg PO Q6HP PRN Mild Pain 12/18/22 03/12/23 (Tylenol Extra Strength) (Scale Score 1-4) albuterol sulfate 90 mcg/actuation 2 puff inhalation Q4HP PRN 12/18/22 03/12/23 aerosol inhaler shortness of air or wheezing related to copd amitriptyline 25 mg tablet 25 mg PO HS mood 12/18/22 03/12/23 apixaban 5 mg tablet (Eliquis) 5 mg PO BID Blood Thinner/DVT 12/18/22 03/12/23 Prophylaxis aspirin 81 mg capsule 81 mg PO DAILY Heart Health 12/18/22 03/12/23 budesonide-formoterol HFA 160 2 puff inhalation BID Breathing 12/18/22 03/12/23 mcg-4.5 mcg/actuation aerosol Problems inhaler (Symbicort) buspirone 10 mg tablet 10 mg PO BID Anxiety 12/18/22 03/12/23 carvedilol 3.125 mg tablet 3.125 mg PO BID High Blood Pressure 12/18/22 03/12/23 docusate sodium 100 mg tablet 100 mg PO BID Constipation 12/18/22 03/12/23 ferrous sulfate 324 mg (65 mg 324 mg PO DAILY anemia 12/18/22 03/12/23 iron) tablet,delayed release icosapent ethyl 1 gram capsule 1 g PO BID Hyperlipidemia 12/18/22 03/12/23 (Vascepa) insulin lispro 100 unit/mL 0 sliding scale dose SQ ACHS 12/18/22 03/12/23 subcutaneous pen Diabetes multivitamin 1 tab PO DAILY Supplement 12/18/22 03/12/23 nitroglycerin 0.4 mg sublingual 0.4 mg sublingual Q5MINP PRN Chest 12/18/22 03/12/23 tablet Pain omeprazole 40 mg capsule,delayed 40 mg PO HS Acid Reflux 12/18/22 03/12/23 release polyethylene glycol 3350 17 gram 17 g PO DAILY Constipation 12/18/22 03/12/23 oral powder packet (Miralax) potassium chloride 10 mEq 10 meq PO DAILY Supplement 12/18/22 03/12/23 tablet,extended release(part/cryst) trazodone 50 mg tablet 50 mg PO HS Insomnia 12/18/22 03/12/23 acetaminophen 500 mg tablet 500 mg PO AC Pain 12/19/22 03/12/23 albuterol sulfate 2.5 mg/3 mL 2.5 mg inhalation Q4HP PRN 12/19/22 03/12/23 (0.083 %) solution for nebulization shortness of air or wheezing gabapentin 300 mg capsule 300 mg PO BID Pain 12/19/22 03/12/23 paroxetine HCl 40 mg tablet 40 mg PO HS mood 12/19/22 03/12/23 hydrocodone 5 mg-acetaminophen 325 1 tab PO BIDP PRN Moderate Pain 01/12/23 03/12/23 mg tablet (Scale Score 5-6) metolazone 2.5 mg tablet 2.5 mg PO DAILY Heart Failure 01/12/23 03/12/23 oxymetazoline 0.05 % nasal spray 2 spray intranasal Q12HP PRN Nasal 01/12/23 03/12/23 (Afrin Sinus (oxymetazoline)) Congestion Previous Rx's Medication Instructions Recorded bumetanide 1 mg tablet See Rx Instructions .Route 01/12/23 .COMPLEX #60 tabs insulin glargine 100 unit/mL (3 20 unit (0.2 mL) SQ HS Diabetes 30 01/12/23 mL) subcutaneous pen days #0 mL prednisone 20 mg tablet 40 mg PO DAILY 5 days #10 tabs 01/15/23 Allergies Allergy/AdvReac Type Severity Reaction Status Date / Time cephalexin Allergy Verified 03/12/23 10:36 Penicillins Allergy Verified 03/12/23 10:36 [facility] Disclaimer: The information contained in this section may have been updated after the patient was seen, as this information can be updated by other users. Medical History Acute and chronic respiratory failure Acute and chronic respiratory failure with hypercapnia Acute exacerbation of CHF (congestive heart failure) Acute exacerbation of chronic obstructive airways disease Acute exacerbation of chronic obstructive pulmonary disease Acute on chronic respiratory failure with hypoxia and hypercapnia Anxiety Anxiety Atrial fibrillation BMI 30.0-30.9,adult Callus of foot Class 2 obesity due to excess calories with body mass index (BMI) of 39.0 to 39.9 in adult Congestive heart failure COPD (chronic obstructive pulmonary disease) Depression Depression Diabetes mellitus Diabetes mellitus type 2 in obese Diabetic foot Fibromyalgia GERD (gastroesophageal reflux disease) HLD (hyperlipidemia) HTN (hypertension) Insomnia Iron deficiency anemia Lymphedema Lymphedema Onychodystrophy Onychomycosis Osteoarthritis Paresthesia of both lower extremities Surgical History H/O hernia repair H/O: hysterectomy History of bladder surgery History of coronary artery stent placement Family History Other No significant family history Social History (Updated 03/12/23 @ 14:26 by Phuong Foster RN) Smoking Status: Unknown if ever smoked alcohol intake: never substance use type: denies use current occupational status: retired and disabled Travel in the last 8 weeks: None housing: [facility] lives independently: No [facility]: Yes ROS Obtained: Yes All systems reviewed & no additional complaints except as documented Physical Exam General General appearance: alert, in no apparent distress and obese Head Head exam: atraumatic and normocephalic Eye Eye exam: Present normal appearance, PERRL and EOMI ENT ENT exam: Present normal exam, normal oropharynx, mucous membranes moist and normal external ear exam Neck Neck exam: Present normal inspection, full ROM and trachea midline; Absent tenderness Chest Chest inspection: Present normal inspection and symmetric chest wall rise; Absent tenderness Respiratory Respiratory exam: Present wheezes, accessory muscle use, prolonged expiratory phase and other (rales bilaterally); Absent respiratory distress or stridor Cardiovascular Cardiovascular exam: Present normal rhythm and tachycardia Abdominal Exam Abdominal exam: Present soft; Absent distention, tenderness or guarding Extremities Exam Extremities exam: Present full ROM, normal capillary refill and edema (3+ BLE edema, which is chronic); Absent tenderness Back Exam Back exam: Present normal inspection and full ROM; Absent tenderness Neurological Exam Neurological exam: Present alert and CN II-XII intact; Absent oriented X3 or motor sensory deficit Skin Skin exam: Present warm and dry Medical Decision Making Medical Records Medical records reviewed: Yes I reviewed the patient's medical records. Tj Inquiry Pt receiving controlled substance: No Vital Signs: 03/12/23 10:37 03/12/23 11:01 03/12/23 11:38 Temperature 98.0 F Temperature Source Axillary Pulse Rate 89 94 H Pulse Rate [Right Brachial] 112 H Respiratory Rate 17 20 20 Blood Pressure 136/72 107/58 L Blood Pressure [Right Arm] 131/64 Blood Pressure Mean 87 74 Blood Pressure Mean [Right Arm] 86 Blood Pressure Source [Right Arm] Automatic Cuff Blood Pressure Position [Right Arm] Sitting 02 Sat by Pulse Oximetry 97 98 94 L Oxygen Delivery Method Non-Rebreather BiPAP BiPAP Oxygen Flow Rate (LPM) 15 03/12/23 12:03 03/12/23 12:31 03/12/23 13:02 Temperature Temperature Source Pulse Rate 102 H 92 H 87 Pulse Rate [Right Brachial] Respiratory Rate 20 18 16 Blood Pressure 101/67 L 100/64 L 115/63 Blood Pressure [Right Arm] Blood Pressure Mean 74 72 69 Blood Pressure Mean [Right Arm] Blood Pressure Source [Right Arm] Blood Pressure Position [Right Arm] 02 Sat by Pulse Oximetry 91 L 92 L Oxygen Delivery Method BiPAP BiPAP BiPAP Oxygen Flow Rate (LPM) Lab Data Lab results reviewed: Yes I reviewed the patient's lab results. Lab Results 03/12/23 10:33: SARS-CoV-2 (PCR) Not detected, Influenza A Untype (PCR) Not detected, Influenza Type B (PCR) Not detected 03/12/23 10:34: VBG pH 7.29 L, VBG pCO2 56.1 H, VBG pO2 84.5 H, VBG HCO3 26.3, VBG Total CO2 28.0 H, VBG O2 Saturation 95.7 H, VBG Base Excess -0.3 03/12/23 11:15: WBC 22.7 H*, RBC 5.40, Hgb 13.7, Hct 43.8, MCV 81.1, MCH 25.4 L, MCHC 31.4 L, RDW 19.9 H, Plt Count 309, MPV 8.5, Neut % (Auto) 89.4 H, Lymph % (Auto) 4.4 L, [place] % (Auto) 5.2, Eos % (Auto) 0.8, Baso % (Auto) 0.3, Neut # (Auto) 20.3 H, Lymph # (Auto) 1.0, [place] # (Auto) 1.2 H, Eos # (Auto) 0.2, Baso # (Auto) 0.1, Total Counted 100, Neutrophils % (Manual) 90 H, Lymphocytes % (Manual) 3 L, Monocytes % (Manual) 7, Platelet Estimate Normal, Hypochromasia 1+, Poikilocytosis 1+, Ovalocytes 1+, D-Dimer 0.50, Sodium 131 L, Potassium 5.5 H, Chloride 94 L, Carbon Dioxide 32 H, Anion Gap 10.5, BUN 26 H, Creatinine 1.00, Estimated Creat Clear 63, Estimated GFR 54 L, Est GFR ( Amer) 66, Glucose 138 H, Lactate 1.4, Calcium 9.0, Total Bilirubin 0.6, AST 48 H, ALT 27, Alkaline Phosphatase 62, Troponin I 0.05 H, NT-Pro-B Natriuret Pep 2340 H, Total Protein 7.7, Albumin 4.4, Globulin 3.3 H, Albumin/Globulin Ratio 1.3 03/12/23 12:08: Urine Color Yellow, Urine Appearance Clear, Urine pH 6.0, Ur Specific [place] 1.020, Urine Protein 2+, Urine Glucose (UA) Trace, Urine Ketones Negative, Urine Blood Negative, Urine Nitrate Negative, Urine Bilirubin Negative, Urine Urobilinogen 0.2, Ur Leukocyte Esterase Negative, Urine RBC None, Urine WBC None, Ur Squamous Epith Cells Occasional, Urine Bacteria Trace 03/12/23 11:15 03/12/23 11:15 Orders (Tests/Meds): ED MEDICATIONS Generic Name Dose Route Start Last Admin Trade Name Freq PRN Reason Stop Dose Admin Levofloxacin/Dextrose 750 mg in 150 mls @ 100 mls/hr 03/12/23 11:45 03/12/23 12:06 Levofloxacin 750mg/150ml Premix IV 03/22/23 11:44 100 mls/hr Q24H JÚNIOR Administration Miscellaneous 1 each 03/12/23 11:45 Vancomycin Consult Request NOTAPPLIC 04/11/23 11:44 CONSULT PHARMACY [facility] Sodium Chloride 10 ml 03/12/23 11:21 Sodium Chloride 0.9% 10ml Flush Syringe IV 04/11/23 11:20 NEEDED PRN Maintain IV Site Discontinued Medications Generic Name Dose Route Start Last Admin Trade Name Freq PRN Reason Stop Dose Admin Albuterol/Ipratropium 9 ml 03/12/23 10:35 03/12/23 10:55 Ipratropium/Albuterol 3 Ml Neb IH 03/12/23 10:36 9 ml ONCE ONE Administration Lactated Ringer's 500 mls @ 999 mls/hr 03/12/23 11:34 03/12/23 12:07 Lactated Ringer's 500ml IV 03/12/23 12:04 999 mls/hr .Q31M ONE Administration Vancomycin/PEG/NADA/Lysine/Water 1.5 gm in 300 mls @ 150 mls/hr 03/12/23 12:00 03/12/23 14:13 Vancomycin 1.5gm/300ml (Peg) Premix IV 03/12/23 13:59 150 mls/hr ONCE ONE Administration ORDERS Category Date Time Status CT head/brain wo con Stat Cat Scan 03/12/23 10:34 Completed XR chest portable Stat Exams 03/12/23 10:34 Completed BNP [Brain Natriuretic Peptide] Stat Lab 03/12/23 11:15 Completed Complete Blood Count Auto Diff Stat Lab 03/12/23 11:15 Completed Comprehensive Metabolic Panel Stat Lab 03/12/23 11:15 Completed D-Dimer Stat Lab 03/12/23 11:15 Completed Lactic Acid Stat Lab 03/12/23 11:15 Completed Rapid PCR Covid and Flu A/B Stat Lab 03/12/23 10:33 Completed Troponin I Q3H Lab 03/12/23 14:00 Received Troponin I Q3H Lab 03/12/23 16:45 Ordered Troponin I Stat Lab 03/12/23 11:15 Completed Urinalysis and Microscopic Stat Lab 03/12/23 12:08 Completed Blood Culture Stat Micro 03/12/23 11:30 Received Venous Blood Gas Stat RT 03/12/23 10:34 Completed ECG initial [place] Routine Y 03/12/23 11:26 Completed ECG Data Tracing #1: I reviewed this ECG and interpreted as documented below: Atrial fibrillation with a ventricular rate of [address] changes concerning for ischemia. No significant changes noted from prior EKG. ECG initial impression date: 03/12/23 ECG initial impression time: 11:27 Medical Decision Narrative: In summary, this patient is a 72-year-old female presenting to the Emergency Department for evaluation of altered mental status and low oxygen saturation. She had pulled her BiPAP off of her at some point last night. Differential diagnoses considered include but are not limited to COPD exacerbation, CO2 narcosis, CHF exacerbation, acute on chronic respiratory failure, pneumonia, ACS, dysrhythmia. Ruling out the most morbid conditions drove assessment. On exam, the patient is confused but responsive. She has wheezing, rales and prolonged expiratory phase. Workup included CBC, CMP, BNP, troponin, VBG, chest x-ray, CT head without contrast, urinalysis, and EKG. She was given DuoNebs x 3. I independently interpreted CT scan and x-ray prior to the radiologist read and noted concern for pneumonia without acute intracranial abnormality. Please see their read for final interpretation. Labs were obtained that demonstrated significant leukocytosis. Patient meets sepsis criteria given pneumonia. She was given a 500 cc bolus of IV fluids, as she appears dry and concentrated on labs. Sepsis bolus was not administered given her respiratory failure and chronic volume overload secondary to CHF. She has a penicillin and cephalosporin allergy, so she was given IV vancomycin and Levaquin. Patient did have a decompensated respiratory acidosis, so she was placed on BiPAP. She has elevated BNP and troponin without acute changes on EKG. On reassessment, the patient had improvement in her oxygenation and mental status after initiation of BiPAP. She remains critically ill with sepsis secondary to pneumonia and acute on chronic respiratory failure. Given this, I feel that she requires admission for close monitoring and resuscitation. I had an direct discussion with hospitalist who graciously admitted the patient for further evaluation and management. Critical Care Critical Care Time Critical Care Time: Yes Attestation: On 03/12/23, the high probability of a clinically significant, sudden or life threatening deterioration of the following system(s) (cardiovascular, respiratory, immunologic) required my full and direct attention, intervention and personal management. The time I documented below is in addition to time spent performing reported procedures but includes the following listed in this critical care notation. Total Time Total Critical Care Time: 30
[2023-03-12 11:23] LABS: Basophils # 0.1 K/mm3 (0-0.2); Basophils % 0.3 % (0.1-2.0); Eosinophils # 0.2 K/mm3 (0.0-0.4); Eosinophils % 0.8 % (0.1-12.0); Hematocrit 43.8 % (37.0-47.0); Hemoglobin 13.7 g/dL (12.2-16.2); Lymphocytes % 4.4 % (10-50); Mean Corpuscular HGB Conc 31.4 g/dL (31.8-35.4); Mean Corpuscular Hemoglobin 25.4 pg (27.0-31.2); Mean Corpuscular Volume 81.1 fl (81-99); Mean Platelet Volume 8.5 fl (7.4-10.4); Monocytes # 1.2 K/mm3 (0.1-1.0); Monocytes % 5.2 % (1.7-9.3); Neutrophils # 20.3 K/mm3 (1.8-7.8); Neutrophils % 89.4 % (37.0-80.0); Platelet Count 309 K/mm3 (142-424); Red Cell Distribution Width 19.9 % (11.5-17.5); White Blood Count 22.7 K/mm3 (4.8-10.8)
[2023-03-12 11:25] LABS: MANUAL DIFFERENTIAL MANUAL DIFFERENTIAL (MANUAL DIFF)
[2023-03-12 11:26] LABS: VBG Base Excess -0.3 mmol/L (-2.4-2.3); VBG HCO3 26.3 mmol/L (23-30); VBG Oxygen Saturation 95.7 % (50-70); VBG PH 7.29 mmol/L (7.31-7.41); VBG PO2 84.5 mmol/L (28-40)
--- NOTE | 2023-03-12 11:26 | ECG_ITS ---
APPROVED REPORT Exam: Resting ECG HR:96 bpm ECG Measurements Heart Rate 96 AXES QRSd 106 QRS 106 QT 357 T 57 QTc 411 Conclusion ATRIAL FIBRILLATION RIGHT AXIS DEVIATION [QRS AXIS > 100] ST DEVIATION AND MODERATE T-WAVE ABNORMALITY, CONSIDER INFERIOR ISCHEMIA [-0.1+ mV T-WAVE IN II/aVF] ABNORMAL ECG UNCONFIRMED REPORT Electronically signed by : Kristian Bynum MD 03/12/2023 17:15:38
[2023-03-12 11:28] LABS: Chloride 94 mmol/L (98-107); Potassium 5.5 mmoL/L (3.5-5.1); Sodium 131 mmol/L (136-145)
[2023-03-12 11:30] LABS: Alanine Aminotransferase 27 U/L (12-78); Aspartate Amino Transferase 48 U/L (14-36); Blood Urea Nitrogen 26 mg/dl (7-17); Creatinine Clearance Estimated 63 mL/min (50-200); Estimated Glomerular Filt Rate 54 ml/min (>60); GFR (African American) 66 ML/MIN (>60)
[2023-03-12 11:31] LABS: VBG PCO2 56.1 mmol/L (35-51)
[2023-03-12 11:31] LABS: Albumin Level 4.4 g/dl (3.5-5.0); Albumin/Globulin Ratio 1.3 (1.1-1.8); Alkaline Phosphatase 62 U/L (38-126); Anion Gap 10.5 mEq/L (5-15); Bilirubin,Total 0.6 mg/dl (0.2-1.3); Carbon Dioxide 32 mmol/L (22.0-30.0); Globulin 3.3 g/dL (1.3-3.2); Glucose 138 mg/dl (74-100); Lactic Acid 1.4 mmol/L (0.7-2.1); Total Protein,Serum 7.7 g/dl (6.3-8.2)
[2023-03-12 11:37] LABS: Lymphocytes % 3 % (10-50); Monocytes % 7 % (2-9); Neutrophils % 90 % (42-76); Total Cells Counted 100
[2023-03-12 11:38] LABS: Hypochromasia 1+; Ovalocytes 1+; Platelet Estimate Normal; Poikilocytosis 1+
[2023-03-12 11:40] LABS: NT Pro Brain Natriuretic Pep. 2340 pg/mL (0-125)
[2023-03-12 11:43] LABS: Troponin I 0.05 ng/ml (0.00-0.034)
[2023-03-12] MEDS: LEVOFLOXACIN/D5W 750 MG/150 ML 750 MG/150 ML PIGGYBACK 100 MG IV (12:06)
[2023-03-12] MEDS: RINGERS SOLUTION,LACTATED 500 ML 999 ML IV (12:07)
[2023-03-12 12:11] LABS: Microscopic, Urine URINE MICROSCOPIC (MICROSCOPIC)
[2023-03-12 12:26] LABS: Appearance,Urine CLEAR (Clear); Bilirubin,Urine Negative (Negative); Blood, Urine Negative (Negative); Color,Urine YELLOW (Yellow); Glucose,Urine (UA) TRACE (Negative); Ketones,Urine Negative (Negative); Leukocyte Esterase,Urine Negative (Negative); Nitrate,Urine Negative (Negative); Protein,Urine 2+ (Negative); Urobilinogen,Urine 0.2 EU/dl (0.2)
--- NOTE | 2023-03-12 12:28 | PC.NURSE ---
DR SUTHERLAND SPEAKING WITH HOSPITALIST FOR ADMISSION
--- NOTE | 2023-03-12 12:30 | PC.NURSE ---
CARE MANAGEMENT NOTIFIED OF ADMISSION
[2023-03-12 12:41] LABS: Bacteria,Urine Trace /lpf; Squamous Epithelial Cell,Urine Occasional #/hpf (0-5)
[2023-03-12] MEDS: VANCOMYCIN/WATER FOR INJ (PEG) 1.5 GM/300 ML PIGGYBACK IV (14:13)
--- NOTE | 2023-03-12 14:42 | PC.NURSE ---
Report called to Adri Ramirez RN
--- NOTE | 2023-03-12 14:43 | P.CONPHA_ITS ---
Pharmacy Consult Date: 03/12/23 Time: 14:45 Referring provider: DR SUTHERLAND Reason for Consult:: VANCOMYCIN DOSING CONSULT Allergies Allergy/AdvReac Type Severity Reaction Status Date / Time cephalexin Allergy Verified 03/12/23 10:36 Penicillins Allergy Verified 03/12/23 10:36 Home Medications Medication Instructions Recorded Confirmed Type ergocalciferol (vitamin D2) 1,250 1,250 mcg PO MO Supplement 08/12/20 03/12/23 History mcg (50,000 unit) capsule lisinopril 5 mg tablet 2.5 mg PO DAILY High Blood Pressure 08/12/20 03/12/23 History rosuvastatin 10 mg tablet 10 mg PO HS Cholesterol 08/12/20 03/12/23 History tiotropium bromide 2.5 1 puff inhalation DAILY Breathing 08/12/20 03/12/23 History mcg/actuation mist for inhalation Problems (Spiriva Respimat) acetaminophen 500 mg tablet 1,000 mg PO Q6HP PRN Mild Pain 12/18/22 03/12/23 History (Tylenol Extra Strength) (Scale Score 1-4) albuterol sulfate 90 mcg/actuation 2 puff inhalation Q4HP PRN 12/18/22 03/12/23 History aerosol inhaler shortness of air or wheezing related to copd amitriptyline 25 mg tablet 25 mg PO HS mood 12/18/22 03/12/23 History apixaban 5 mg tablet (Eliquis) 5 mg PO BID Blood Thinner/DVT 12/18/22 03/12/23 History Prophylaxis aspirin 81 mg capsule 81 mg PO DAILY Heart Health 12/18/22 03/12/23 History budesonide-formoterol HFA 160 2 puff inhalation BID Breathing 12/18/22 03/12/23 History mcg-4.5 mcg/actuation aerosol Problems inhaler (Symbicort) buspirone 10 mg tablet 10 mg PO BID Anxiety 12/18/22 03/12/23 History carvedilol 3.125 mg tablet 3.125 mg PO BID High Blood Pressure 12/18/22 03/12/23 History docusate sodium 100 mg tablet 100 mg PO BID Constipation 12/18/22 03/12/23 History ferrous sulfate 324 mg (65 mg 324 mg PO DAILY anemia 12/18/22 03/12/23 History iron) tablet,delayed release icosapent ethyl 1 gram capsule 1 g PO BID Hyperlipidemia 12/18/22 03/12/23 History (Vascepa) insulin lispro 100 unit/mL 0 sliding scale dose SQ ACHS 12/18/22 03/12/23 History subcutaneous pen Diabetes multivitamin 1 tab PO DAILY Supplement 12/18/22 03/12/23 History nitroglycerin 0.4 mg sublingual 0.4 mg sublingual Q5MINP PRN Chest 12/18/22 03/12/23 History tablet Pain omeprazole 40 mg capsule,delayed 40 mg PO HS Acid Reflux 12/18/22 03/12/23 History release polyethylene glycol 3350 17 gram 17 g PO DAILY Constipation 12/18/22 03/12/23 History oral powder packet (Miralax) potassium chloride 10 mEq 10 meq PO DAILY Supplement 12/18/22 03/12/23 History tablet,extended release(part/cryst) trazodone 50 mg tablet 50 mg PO HS Insomnia 12/18/22 03/12/23 History acetaminophen 500 mg tablet 500 mg PO AC Pain 12/19/22 03/12/23 History albuterol sulfate 2.5 mg/3 mL 2.5 mg inhalation Q4HP PRN 12/19/22 03/12/23 History (0.083 %) solution for nebulization shortness of air or wheezing gabapentin 300 mg capsule 300 mg PO BID Pain 12/19/22 03/12/23 History paroxetine HCl 40 mg tablet 40 mg PO HS mood 12/19/22 03/12/23 History bumetanide 1 mg tablet See Rx Instructions .Route 01/12/23 03/12/23 Rx .COMPLEX #60 tabs hydrocodone 5 mg-acetaminophen 325 1 tab PO BIDP PRN Moderate Pain 01/12/23 03/12/23 History mg tablet (Scale Score 5-6) insulin glargine 100 unit/mL (3 20 unit (0.2 mL) SQ HS Diabetes 30 01/12/23 03/12/23 Rx mL) subcutaneous pen days #0 mL metolazone 2.5 mg tablet 2.5 mg PO DAILY Heart Failure 01/12/23 03/12/23 History oxymetazoline 0.05 % nasal spray 2 spray intranasal Q12HP PRN Nasal 01/12/23 03/12/23 History (Afrin Sinus (oxymetazoline)) Congestion prednisone 20 mg tablet 40 mg PO DAILY 5 days #10 tabs 01/15/23 03/12/23 Rx New Prescriptions to Start Prescriptions: Height: 1.65 m Weight: 79.832 kg Laboratory Results:: Laboratory Results - last 24 hr 03/12/23 10:33: SARS-CoV-2 (PCR) Not detected, Influenza A Untype (PCR) Not detected, Influenza Type B (PCR) Not detected 03/12/23 10:34: VBG pH 7.29 L, VBG pCO2 56.1 H, VBG pO2 84.5 H, VBG HCO3 26.3, VBG Total CO2 28.0 H, VBG O2 Saturation 95.7 H, VBG Base Excess -0.3 03/12/23 11:15: WBC 22.7 H*, RBC 5.40, Hgb 13.7, Hct 43.8, MCV 81.1, MCH 25.4 L, MCHC 31.4 L, RDW 19.9 H, Plt Count 309, MPV 8.5, Neut % (Auto) 89.4 H, Lymph % (Auto) 4.4 L, [place] % (Auto) 5.2, Eos % (Auto) 0.8, Baso % (Auto) 0.3, Neut # (Auto) 20.3 H, Lymph # (Auto) 1.0, [place] # (Auto) 1.2 H, Eos # (Auto) 0.2, Baso # (Auto) 0.1, Total Counted 100, Neutrophils % (Manual) 90 H, Lymphocytes % (Manual) 3 L, Monocytes % (Manual) 7, Platelet Estimate Normal, Hypochromasia 1+, Poikilocytosis 1+, Ovalocytes 1+, D-Dimer 0.50, Sodium 131 L, Potassium 5.5 H, Chloride 94 L, Carbon Dioxide 32 H, Anion Gap 10.5, BUN 26 H, Creatinine 1.00, Estimated Creat Clear 63, Estimated GFR 54 L, Est GFR ( Amer) 66, Glucose 138 H, Lactate 1.4, Calcium 9.0, Total Bilirubin 0.6, AST 48 H, ALT 27, Alkaline Phosphatase 62, Troponin I 0.05 H, NT-Pro-B Natriuret Pep 2340 H, Total Protein 7.7, Albumin 4.4, Globulin 3.3 H, Albumin/Globulin Ratio 1.3 03/12/23 12:08: Urine Color Yellow, Urine Appearance Clear, Urine pH 6.0, Ur Specific [place] 1.020, Urine Protein 2+, Urine Glucose (UA) Trace, Urine Ketones Negative, Urine Blood Negative, Urine Nitrate Negative, Urine Bilirubin Negative, Urine Urobilinogen 0.2, Ur Leukocyte Esterase Negative, Urine RBC None, Urine WBC None, Ur Squamous Epith Cells Occasional, Urine Bacteria Trace Medical History: Medical History (Updated 03/12/23 @ 14:26 by Phuong Foster RN) Acute and chronic respiratory failure Acute and chronic respiratory failure with hypercapnia Acute exacerbation of CHF (congestive heart failure) Acute exacerbation of chronic obstructive airways disease Acute exacerbation of chronic obstructive pulmonary disease Acute on chronic respiratory failure with hypoxia and hypercapnia Anxiety Anxiety Atrial fibrillation BMI 30.0-30.9,adult Callus of foot Class 2 obesity due to excess calories with body mass index (BMI) of 39.0 to 39.9 in adult Congestive heart failure COPD (chronic obstructive pulmonary disease) Depression Depression Diabetes mellitus Diabetes mellitus type 2 in obese Diabetic foot Fibromyalgia GERD (gastroesophageal reflux disease) HLD (hyperlipidemia) HTN (hypertension) Insomnia Iron deficiency anemia Lymphedema Lymphedema Onychodystrophy Onychomycosis Osteoarthritis Paresthesia of both lower extremities Assessment and Plan Assessment and plan all Dx Assessment and Plan for all problems:: Pharmacokinetic dosing service Objective: Age: 72 yo Serum creatinine: 1.0 mg/dL Height: 65.0 Inches Weight (kg): 79.832 Diagnosis: SEPSIS Assessment: IBW (kg): 57.00 Dosing wt(kg): 79.832 Estimated Creatinine clearance (ml/min): 45.1 CRCL method: Cockcroft and Gault using ibw(default). Drug selected: Vancomycin Loading dose (mg): 1500 MG Vd (liters): 55.9 (factor used: 0.7 L/kg) Du (hr-1): 0.042 Half life (hrs): 16.50 CLvanco=?? 2.348 L/hr Recommended dose: 1250 mg Interval: 24 hrs Infusion time (hrs): 2.0 Predicted peak (mcg/mL): 33.8 Predicted trough (mcg/mL): 13.42 Total body weight is being used for vancomycin dosing. Recommendations: Give Vancomycin 1250 mg q 24 hrs with an expected Cpeak of 33.8 mcg/ml and an expected Ctrough of 13.42 mcg/ml TO START 03/13/23 AT 14:00, LOADING DOSE OF VANCOMYCIN 1500 MG GIVEN IN THE ED 03/12/23 AT 14:15. AUC 0-24 /KALLI Data: KALLI 0.5 mcg/mL:?? AUC/KALLI:? 1064.7 KALLI 1.0 mcg/mL:?? AUC/KALLI:? 532.4 --------- KALLI 1.5 mcg/mL:?? AUC/KALLI:? 354.9 KALLI 2.0 mcg/mL:?? AUC/KALLI:? 266.2 Thank you for the consult
--- NOTE | 2023-03-12 14:47 | SW/DCPLANNER ---
Addendum entered by Elizabeth Ward 03/16/23 10:23: I have updated Lauryn w/ [facility] that patient will return today [facility] level of care. Addendum entered by Elizabeth Ward 03/15/23 08:33: Per Lauryn w/ [facility] patient's daughter has contacted her interested in moving patient from LTC at [facility] to [facility]. I updated Lauryn that [facility] does not currently have any LTC beds available but I will contact patient's daughter. Daughter is fine w/ patient returning to [facility] and information being faxed to Minnie at [facility]. Patient will discharge back to [facility] level of care today. Original Note: This patient currently resides at [facility] level of care. I will continue to follow up w/ Lauryn at [facility] until patient is medically stable for discharge. Discharge date is unknown at this time.
[2023-03-12 14:49] LABS: Troponin I 0.11 ng/ml (0.00-0.034)
--- NOTE | 2023-03-12 14:55 | PC.NURSE ---
arrived by stretcher from ED
--- NOTE | 2023-03-12 15:56 | EXP.PULM.CON ---
History of Present Illness History of present illness: Ms. Sena is a 72-year-old care home resident from [facility] a diagnosis of COPD, chronic hypoxic respiratory failure on 3 L nasal cannula, sleep apnea admitted to the hospital in January 2023 for COPD exacerbation hypercarbic respiratory failure, discharged to the care home on BiPAP therapy presented to the hospital worsening respiratory distress and pulmonary was called for further evaluation and management. [facility] Disclaimer: The information contained in this section may have been updated after the patient was seen, as this information can be updated by other users. Medical History (Updated 03/12/23 @ 15:56 by Isha Paredes MD) Anxiety Atrial fibrillation BMI 30.0-30.9,adult Callus of foot Class 2 obesity due to excess calories with body mass index (BMI) of 39.0 to 39.9 in adult Congestive heart failure COPD (chronic obstructive pulmonary disease) Depression Diabetes mellitus, type 2 Diabetic foot Fibromyalgia GERD (gastroesophageal reflux disease) Heart failure HLD (hyperlipidemia) HTN (hypertension) Insomnia Iron deficiency anemia Lymphedema Major depressive disorder Onychodystrophy Onychomycosis Osteoarthritis Osteoporosis Paresthesia of both lower extremities Pneumonia Pulmonary hypertension Surgical History H/O hernia repair H/O: hysterectomy History of bladder surgery History of coronary artery stent placement Family History Other No significant family history Social History (Updated 03/12/23 @ 14:26 by Phuong Foster, FELIPA) Smoking Status: Unknown if ever smoked alcohol intake: never substance use type: denies use current occupational status: retired and disabled Travel in the last 8 weeks: None housing: care home lives independently: No care home: Yes Review of Systems Review of Systems Review of systems:: unable to obtain Review of systems (narrative): Patient lethargic not responding appropriately to verbal stimuli. Pulmonology Exam Inpatient Vital signs and Labs for Last 24 Hours: Temp Pulse Resp BP Pulse Ox O2 Del Method O2 Flow Rate 98.8 F 68 16 113/71 92 L BiPAP 15 03/12/23 15:19 03/12/23 14:45 03/12/23 14:45 03/12/23 14:45 03/12/23 13:02 03/12/23 14:45 03/12/23 10:37 FiO2 30 03/12/23 11:50 Laboratory Results - last 24 hr 03/12/23 10:33: SARS-CoV-2 (PCR) Not detected, Influenza A Untype (PCR) Not detected, Influenza Type B (PCR) Not detected 03/12/23 10:34: VBG pH 7.29 L, VBG pCO2 56.1 H, VBG pO2 84.5 H, VBG HCO3 26.3, VBG Total CO2 28.0 H, VBG O2 Saturation 95.7 H, VBG Base Excess -0.3 03/12/23 11:15: WBC 22.7 H*, RBC 5.40, Hgb 13.7, Hct 43.8, MCV 81.1, MCH 25.4 L, MCHC 31.4 L, RDW 19.9 H, Plt Count 309, MPV 8.5, Neut % (Auto) 89.4 H, Lymph % (Auto) 4.4 L, [place] % (Auto) 5.2, Eos % (Auto) 0.8, Baso % (Auto) 0.3, Neut # (Auto) 20.3 H, Lymph # (Auto) 1.0, [place] # (Auto) 1.2 H, Eos # (Auto) 0.2, Baso # (Auto) 0.1, Total Counted 100, Neutrophils % (Manual) 90 H, Lymphocytes % (Manual) 3 L, Monocytes % (Manual) 7, Platelet Estimate Normal, Hypochromasia 1+, Poikilocytosis 1+, Ovalocytes 1+, D-Dimer 0.50, Sodium 131 L, Potassium 5.5 H, Chloride 94 L, Carbon Dioxide 32 H, Anion Gap 10.5, BUN 26 H, Creatinine 1.00, Estimated Creat Clear 63, Estimated GFR 54 L, Est GFR ( Amer) 66, Glucose 138 H, Lactate 1.4, Calcium 9.0, Total Bilirubin 0.6, AST 48 H, ALT 27, Alkaline Phosphatase 62, Troponin I 0.05 H, NT-Pro-B Natriuret Pep 2340 H, Total Protein 7.7, Albumin 4.4, Globulin 3.3 H, Albumin/Globulin Ratio 1.3 03/12/23 12:08: Urine Color Yellow, Urine Appearance Clear, Urine pH 6.0, Ur Specific [place] 1.020, Urine Protein 2+, Urine Glucose (UA) Trace, Urine Ketones Negative, Urine Blood Negative, Urine Nitrate Negative, Urine Bilirubin Negative, Urine Urobilinogen 0.2, Ur Leukocyte Esterase Negative, Urine RBC None, Urine WBC None, Ur Squamous Epith Cells Occasional, Urine Bacteria Trace 03/12/23 14:00: Troponin I 0.11 H I & O for Labs for Last 24 Hours: Intake & Output 03/09/23 03/10/23 03/11/23 03/12/23 23:59 23:59 23:59 23:59 Weight 224 lb 6 oz Constitutional: Present severe distress Head: Present normocephalic and atraumatic ENT: Present normal exam, normal oropharynx and mucous membranes moist Neck: Present normal inspection and full ROM Respiratory: Present prolonged expiratory phase, respiratory distress, wheezes and diminished air movement; Absent able to speak in complete sentences Cardiac: Present S1/S2, Tachycardia and radial pulses present GI: Present soft and distention; Absent tenderness or guarding Rectal (female): Present deferred (female): Present deferred Skin: Present intact; Absent cyanosis or jaundice Neuro: Absent alert, awake or oriented x 3 Extremities: Present normal inspection; Absent clubbing or cyanosis Psychiatric: Present normal affect and cooperative Meds Home Medications and Allergies Home Medications Medication Instructions Recorded Confirmed Type ergocalciferol (vitamin D2) 1,250 1,250 mcg PO MO Supplement 08/12/20 03/12/23 History mcg (50,000 unit) capsule rosuvastatin 10 mg tablet 10 mg PO HS Cholesterol 08/12/20 03/12/23 History tiotropium bromide 2.5 1 puff inhalation DAILY Breathing 08/12/20 03/12/23 History mcg/actuation mist for inhalation Problems (Spiriva Respimat) acetaminophen 500 mg tablet 1,000 mg PO Q6HP PRN Mild Pain 12/18/22 03/12/23 History (Tylenol Extra Strength) (Scale Score 1-4) albuterol sulfate 90 mcg/actuation 2 puff inhalation Q4HP PRN 12/18/22 03/12/23 History aerosol inhaler shortness of air or wheezing related to copd amitriptyline 25 mg tablet 25 mg PO HS mood 12/18/22 03/12/23 History apixaban 5 mg tablet (Eliquis) 5 mg PO BID Blood Thinner/DVT 12/18/22 03/12/23 History Prophylaxis aspirin 81 mg capsule 81 mg PO DAILY Heart Health 12/18/22 03/12/23 History budesonide-formoterol HFA 160 2 puff inhalation BID Breathing 12/18/22 03/12/23 History mcg-4.5 mcg/actuation aerosol Problems inhaler (Symbicort) buspirone 10 mg tablet 10 mg PO BID Anxiety 12/18/22 03/12/23 History carvedilol 3.125 mg tablet 3.125 mg PO BID High Blood Pressure 12/18/22 03/12/23 History docusate sodium 100 mg tablet 100 mg PO BID Constipation 12/18/22 03/12/23 History ferrous sulfate 324 mg (65 mg 324 mg PO DAILY anemia 12/18/22 03/12/23 History iron) tablet,delayed release icosapent ethyl 1 gram capsule 1 g PO BID Hyperlipidemia 12/18/22 03/12/23 History (Vascepa) insulin lispro 100 unit/mL 0 sliding scale dose SQ ACHS 12/18/22 03/12/23 History subcutaneous pen Diabetes multivitamin 1 tab PO DAILY Supplement 12/18/22 03/12/23 History nitroglycerin 0.4 mg sublingual 0.4 mg sublingual Q5MINP PRN Chest 12/18/22 03/12/23 History tablet Pain omeprazole 40 mg capsule,delayed 40 mg PO HS Acid Reflux 12/18/22 03/12/23 History release polyethylene glycol 3350 17 gram 17 g PO DAILY Constipation 12/18/22 03/12/23 History oral powder packet (Miralax) trazodone 50 mg tablet 50 mg PO HS Insomnia 12/18/22 03/12/23 History acetaminophen 500 mg tablet 500 mg PO AC Pain 12/19/22 03/12/23 History albuterol sulfate 2.5 mg/3 mL 2.5 mg inhalation Q4HP PRN 12/19/22 03/12/23 History (0.083 %) solution for nebulization shortness of air or wheezing gabapentin 300 mg capsule 300 mg PO BID Pain 12/19/22 03/12/23 History paroxetine HCl 40 mg tablet 40 mg PO HS mood 12/19/22 03/12/23 History hydrocodone 5 mg-acetaminophen 325 1 tab PO BIDP PRN Moderate Pain 01/12/23 03/12/23 History mg tablet (Scale Score 5-6) insulin glargine 100 unit/mL (3 20 unit (0.2 mL) SQ HS Diabetes 30 01/12/23 03/12/23 Rx mL) subcutaneous pen days #0 mL oxymetazoline 0.05 % nasal spray 2 spray intranasal Q12HP PRN Nasal 01/12/23 03/12/23 History (Afrin Sinus (oxymetazoline)) Congestion bumetanide 1 mg tablet 1 mg PO BID Fluid 03/12/23 03/12/23 History spironolactone 50 mg tablet 50 mg PO DAILY 03/12/23 03/12/23 History (Aldactone) New Prescriptions to Start Prescriptions: Allergies Allergy/AdvReac Type Severity Reaction Status Date / Time cephalexin Allergy Verified 03/12/23 10:36 Penicillins Allergy Verified 03/12/23 10:36 Results Laboratory Findings 03/12/23 11:15 03/12/23 11:15 PT/INR, D-dimer D-Dimer 0.50 ug/mL (0.0-0.5) 03/12/23 11:15 Abnormal lab findings: Abnormal Labs 03/12/23 03/12/23 03/12/23 10:34 11:15 14:00 WBC 22.7 H* MCH 25.4 L MCHC 31.4 L RDW 19.9 H Neut % (Auto) 89.4 H Lymph % (Auto) 4.4 L Neut # (Auto) 20.3 H [place] # (Auto) 1.2 H Neutrophils % (Manual) 90 H Lymphocytes % (Manual) 3 L VBG pH 7.29 L VBG pCO2 56.1 H VBG pO2 84.5 H VBG Total CO2 28.0 H VBG O2 Saturation 95.7 H Sodium 131 L Potassium 5.5 H Chloride 94 L Carbon Dioxide 32 H BUN 26 H Estimated GFR 54 L Glucose 138 H AST 48 H Troponin I 0.05 H 0.11 H NT-Pro-B Natriuret Pep 2340 H Globulin 3.3 H Assessment and Plan *Assessment and plan (1) Acute on chronic respiratory failure with hypoxia and hypercapnia: Status: Acute Category: Medical Code(s): J96.21 - Acute and chronic respiratory failure with hypoxia; J96.22 - Acute and chronic respiratory failure with hypercapnia (2) Pneumonia: Status: Acute Category: Medical Code(s): J18.9 - Pneumonia, unspecified organism Plan Ms. Sena is a 72-year-old care home resident from [place]-carries a diagnosis of COPD, chronic hypoxic respiratory failure on 3 L nasal cannula, sleep apnea admitted to the hospital in January 2023 for COPD exacerbation hypercarbic respiratory failure, discharged to the care home on BiPAP therapy presented to the hospital worsening respiratory distress and pulmonary was called for further evaluation and management. Significant neutrophilic leukocytosis upon admission. Venous blood gas upon admission showed mild hypercarbic respiratory with a pH of 7.29 and pCO2 56.1. COVID-19 and flu PCR negative On my examination of the patient mentation appears disproportionate to the noted hypercarbic, will repeat ABG. CT head upon admission concerning for prior hemorrhage or infection, will defer to primary team for further evaluation and management. Chest x-ray upon admission concerning for right lower lobe airspace disease. Plan: Change antibiotics to vancomycin and Cefepime pending blood and sputum cultures And nasal MRSA Continue BiPAP therapy, currently on 20/09 with a rate of 20 and FiO2 30% will follow with the blood gas DuoNebs every 4 hours along with Pulmicort every 12 scheduled # Thank you for involving pulmonary in this patient care. Will continue to follow.
[2023-03-12 16:41] LABS: ABG Base Excess 4.2 mmol/L (-2.4-2.3); ABG HCO3 30.4 mmhg (22.0-26.0); ABG Oxygen Saturation 87 % (90-100); ABG PH 7.31 mmol/L (7.35-7.45); ABG PO2 57.3 mmhg (80-100); ABG TCO2 32.3 mmhg (23-27)
[2023-03-12 16:43] LABS: Oxygen 30% %
[2023-03-12] MEDS: CEFEPIME HCL 2 GM in 0.9 % SODIUM CHLORIDE 100 ML IV (16:43)
[2023-03-12 16:44] LABS: ABG PCO2 61.2 mmhg (35.0-45.0); Allen's Test Acceptable; Pressure Support 16/8; Source Left Brachial; Vent Rate 20
--- NOTE | 2023-03-12 17:52 | EXP.HP ---
History of Present Illness *Admission Date: 03/12/23 *Reason for visit:: Shortness of breath *History of present illness: Patient is a 72-year-old female who lives at residential facility presented to hospital due to shortness of breath. Patient has past medical history of hypertension hyperlipidemia diabetes mellitus CAD atrial fibrillation on Eliquis, COPD on 3 L nasal cannula. Patient mentions she has been feeling shortness of breath for past 3 to 4 days, she also has associated bilateral lower extremity swelling. She uses 2 L nasal cannula at baseline Denied fever chills diarrhea constipation dysuria. [facility] Disclaimer: The information contained in this section may have been updated after the patient was seen, as this information can be updated by other users. Medical History (Updated 03/12/23 @ 15:56 by Isha Paredes MD) Anxiety Atrial fibrillation BMI 30.0-30.9,adult Callus of foot Class 2 obesity due to excess calories with body mass index (BMI) of 39.0 to 39.9 in adult Congestive heart failure COPD (chronic obstructive pulmonary disease) Depression Diabetes mellitus, type 2 Diabetic foot Fibromyalgia GERD (gastroesophageal reflux disease) Heart failure HLD (hyperlipidemia) HTN (hypertension) Insomnia Iron deficiency anemia Lymphedema Major depressive disorder Onychodystrophy Onychomycosis Osteoarthritis Osteoporosis Paresthesia of both lower extremities Pneumonia Pulmonary hypertension Surgical History H/O hernia repair H/O: hysterectomy History of bladder surgery History of coronary artery stent placement Family History Other No significant family history Social History (Updated 03/12/23 @ 14:26 by Phuong Foster RN) Smoking Status: Unknown if ever smoked alcohol intake: never substance use type: denies use current occupational status: retired and disabled Travel in the last 8 weeks: None housing: residential lives independently: No residential: Yes Review of Systems Review of Systems Review of systems (narrative): As per HPI Meds Home Medications and Allergies Home Medications Medication Instructions Recorded Confirmed Type ergocalciferol (vitamin D2) 1,250 1,250 mcg PO MO Supplement 08/12/20 03/12/23 History mcg (50,000 unit) capsule rosuvastatin 10 mg tablet 10 mg PO HS Cholesterol 08/12/20 03/12/23 History tiotropium bromide 2.5 1 puff inhalation DAILY Breathing 08/12/20 03/12/23 History mcg/actuation mist for inhalation Problems (Spiriva Respimat) acetaminophen 500 mg tablet 1,000 mg PO Q6HP PRN Mild Pain 12/18/22 03/12/23 History (Tylenol Extra Strength) (Scale Score 1-4) albuterol sulfate 90 mcg/actuation 2 puff inhalation Q4HP PRN 12/18/22 03/12/23 History aerosol inhaler shortness of air or wheezing related to copd amitriptyline 25 mg tablet 25 mg PO HS mood 12/18/22 03/12/23 History apixaban 5 mg tablet (Eliquis) 5 mg PO BID Blood Thinner/DVT 12/18/22 03/12/23 History Prophylaxis aspirin 81 mg capsule 81 mg PO DAILY Heart Health 12/18/22 03/12/23 History budesonide-formoterol HFA 160 2 puff inhalation BID Breathing 12/18/22 03/12/23 History mcg-4.5 mcg/actuation aerosol Problems inhaler (Symbicort) buspirone 10 mg tablet 10 mg PO BID Anxiety 12/18/22 03/12/23 History carvedilol 3.125 mg tablet 3.125 mg PO BID High Blood Pressure 12/18/22 03/12/23 History docusate sodium 100 mg tablet 100 mg PO BID Constipation 12/18/22 03/12/23 History ferrous sulfate 324 mg (65 mg 324 mg PO DAILY anemia 12/18/22 03/12/23 History iron) tablet,delayed release icosapent ethyl 1 gram capsule 1 g PO BID Hyperlipidemia 12/18/22 03/12/23 History (Vascepa) insulin lispro 100 unit/mL 0 sliding scale dose SQ ACHS 12/18/22 03/12/23 History subcutaneous pen Diabetes multivitamin 1 tab PO DAILY Supplement 12/18/22 03/12/23 History nitroglycerin 0.4 mg sublingual 0.4 mg sublingual Q5MINP PRN Chest 12/18/22 03/12/23 History tablet Pain omeprazole 40 mg capsule,delayed 40 mg PO HS Acid Reflux 12/18/22 03/12/23 History release polyethylene glycol 3350 17 gram 17 g PO DAILY Constipation 12/18/22 03/12/23 History oral powder packet (Miralax) trazodone 50 mg tablet 50 mg PO HS Insomnia 12/18/22 03/12/23 History acetaminophen 500 mg tablet 500 mg PO AC Pain 12/19/22 03/12/23 History albuterol sulfate 2.5 mg/3 mL 2.5 mg inhalation Q4HP PRN 12/19/22 03/12/23 History (0.083 %) solution for nebulization shortness of air or wheezing gabapentin 300 mg capsule 300 mg PO BID Pain 12/19/22 03/12/23 History paroxetine HCl 40 mg tablet 40 mg PO HS mood 12/19/22 03/12/23 History hydrocodone 5 mg-acetaminophen 325 1 tab PO BIDP PRN Moderate Pain 01/12/23 03/12/23 History mg tablet (Scale Score 5-6) insulin glargine 100 unit/mL (3 20 unit (0.2 mL) SQ HS Diabetes 30 01/12/23 03/12/23 Rx mL) subcutaneous pen days #0 mL oxymetazoline 0.05 % nasal spray 2 spray intranasal Q12HP PRN Nasal 01/12/23 03/12/23 History (Afrin Sinus (oxymetazoline)) Congestion bumetanide 1 mg tablet 1 mg PO BID Fluid 03/12/23 03/12/23 History spironolactone 50 mg tablet 50 mg PO DAILY 03/12/23 03/12/23 History (Aldactone) New Prescriptions to Start Prescriptions: Allergies Allergy/AdvReac Type Severity Reaction Status Date / Time cephalexin Allergy Verified 03/12/23 10:36 Penicillins Allergy Verified 03/12/23 10:36 Exam Data for Last 24 hours Vital signs and Labs for Last 24 Hours: Temp Pulse Resp BP Pulse Ox O2 Del Method O2 Flow Rate 98.8 F 70 16 113/71 92 L BiPAP 15 03/12/23 15:19 03/12/23 16:00 03/12/23 14:45 03/12/23 14:45 03/12/23 13:02 03/12/23 14:45 03/12/23 10:37 FiO2 30 03/12/23 15:55 Laboratory Results - last 24 hr 03/12/23 10:33: SARS-CoV-2 (PCR) Not detected, Influenza A Untype (PCR) Not detected, Influenza Type B (PCR) Not detected 03/12/23 10:34: VBG pH 7.29 L, VBG pCO2 56.1 H, VBG pO2 84.5 H, VBG HCO3 26.3, VBG Total CO2 28.0 H, VBG O2 Saturation 95.7 H, VBG Base Excess -0.3 03/12/23 11:15: WBC 22.7 H*, RBC 5.40, Hgb 13.7, Hct 43.8, MCV 81.1, MCH 25.4 L, MCHC 31.4 L, RDW 19.9 H, Plt Count 309, MPV 8.5, Neut % (Auto) 89.4 H, Lymph % (Auto) 4.4 L, [place] % (Auto) 5.2, Eos % (Auto) 0.8, Baso % (Auto) 0.3, Neut # (Auto) 20.3 H, Lymph # (Auto) 1.0, [place] # (Auto) 1.2 H, Eos # (Auto) 0.2, Baso # (Auto) 0.1, Total Counted 100, Neutrophils % (Manual) 90 H, Lymphocytes % (Manual) 3 L, Monocytes % (Manual) 7, Platelet Estimate Normal, Hypochromasia 1+, Poikilocytosis 1+, Ovalocytes 1+, D-Dimer 0.50, Sodium 131 L, Potassium 5.5 H, Chloride 94 L, Carbon Dioxide 32 H, Anion Gap 10.5, BUN 26 H, Creatinine 1.00, Estimated Creat Clear 63, Estimated GFR 54 L, Est GFR ( Amer) 66, Glucose 138 H, Lactate 1.4, Calcium 9.0, Total Bilirubin 0.6, AST 48 H, ALT 27, Alkaline Phosphatase 62, Troponin I 0.05 H, NT-Pro-B Natriuret Pep 2340 H, Total Protein 7.7, Albumin 4.4, Globulin 3.3 H, Albumin/Globulin Ratio 1.3 03/12/23 12:08: Urine Color Yellow, Urine Appearance Clear, Urine pH 6.0, Ur Specific [place] 1.020, Urine Protein 2+, Urine Glucose (UA) Trace, Urine Ketones Negative, Urine Blood Negative, Urine Nitrate Negative, Urine Bilirubin Negative, Urine Urobilinogen 0.2, Ur Leukocyte Esterase Negative, Urine RBC None, Urine WBC None, Ur Squamous Epith Cells Occasional, Urine Bacteria Trace 03/12/23 14:00: Troponin I 0.11 H 03/12/23 16:00: Specimen Source Left brachial, O2 % 30%, ABG pH 7.31 L, ABG pCO2 61.2 H, ABG pO2 57.3 L, ABG HCO3 30.4 H, ABG Total CO2 32.3 H, ABG O2 Saturation 87 L*, ABG Base Excess 4.2 H, [place] Test Acceptable, Vent Rate 20 I & O for Last 24 hours: Intake & Output 03/09/23 03/10/23 03/11/23 03/12/23 23:59 23:59 23:59 23:59 Weight 101.775 kg Constitutional Constitutional: no acute distress *Routine HEENT Exam Head: Present normocephalic Eye: Present EOMI and PERRL ENT: Present mucous membranes moist *Routine Neck Exam Neck: Present supple; Absent lymphadenopathy *Routine Respiratory Exam Respiratory: Present respiratory distress, wheezes, crackles and distant breath sounds *Routine Cardiovascular Exam Cardiovascular: Present RRR *Routine Abdominal Exam Abdominal: Present soft and normoactive bowel sounds; Absent tenderness *Routine Rectal Exam Rectal:: deferred *Routine Genitalia Exam Genitalia:: deferred *Routine Extremities Exam Extremities: Present edema; Absent cyanosis or clubbing Comments: Bilateral lower extremity edema *Routine Skin Exam Skin: Present warm; Absent rash *Routine Neurological Exam Neurological: Present alert and oriented X3 Assessment and Plan *Assessment and plan (1) Pneumonia: Status: Acute Category: Medical Code(s): J18.9 - Pneumonia, unspecified organism (2) Sepsis due to pneumonia: Status: Acute Category: Medical Code(s): J18.9 - Pneumonia, unspecified organism; A41.9 - Sepsis, unspecified organism (3) Acute on chronic respiratory failure with hypoxia and hypercapnia: Status: Acute Category: Medical Code(s): J96.21 - Acute and chronic respiratory failure with hypoxia; J96.22 - Acute and chronic respiratory failure with hypercapnia (4) Elevated troponin: Status: Acute Category: Medical Code(s): R79.89 - Other specified abnormal findings of blood chemistry (5) CHF (congestive heart failure): Status: Acute Category: Medical Code(s): I50.9 - Heart failure, unspecified Plan Patient is a 72-year-old female who lives at residential facility presented to hospital due to shortness of breath. Patient has past medical history of hypertension hyperlipidemia diabetes mellitus CAD atrial fibrillation on Eliquis, COPD on 3 L nasal cannula. Patient mentions she has been feeling shortness of breath for past 3 to 4 days, she also has associated bilateral lower extremity swelling. She uses 2 L nasal cannula at baseline Denied fever chills diarrhea constipation dysuria. Assessment and plan Acute on chronic CHF Elevated troponin likely demand ischemia Sepsis present on admission likely source right lung pneumonia Acute on chronic hypoxic respiratory failure likely secondary to CHF exacerbation, COPD exacerbation -Start 40 IV Lasix twice daily Strict I's and O's Started on vancomycin, cefepime, Check PCT level Patient has been started on BiPAP, consult pulmonary Monitor and replace electrolytes Started on DuoNeb every 4 hours Hyperkalemia -[facility] Chronic atrial fibrillation Chronic anticoagulation with Eliquis -Resume home Eliquis Iron deficiency anemia-monitor Diabetes mellitus -Insulin sliding scale Resume home long-acting insulin DVT prophylaxis-on Eliquis
[2023-03-12 18:39] LABS: Troponin I 0.19 ng/ml (0.00-0.034)
[2023-03-12] MEDS: IPRATROPIUM/ALBUTEROL 3 ML NEB IH ×2 (18:50→22:45)
[2023-03-12] MEDS: BUDESONIDE 0.5MG/2ML NEB 0.5 MG IH (18:50)
[2023-03-12] MEDS: LOKELMA 5GM PACKET 10 GM PO (19:00)
[2023-03-12] MEDS: FUROSEMIDE 40MG/4ML VIAL 40 MG IV (19:02)
[2023-03-12 19:07] LABS: Procalcitonin 0.258 ng/mL (0.0-2.0)
[2023-03-12 20:39] LABS: POC Glucose,Bedside 193 (70-110)
[2023-03-12] MEDS: APIXABAN 5MG TABLET 5 MG PO (20:44)
[2023-03-12] MEDS: BUSPIRONE HCL 10 MG TABLET PO (20:45)
[2023-03-12] MEDS: CARVEDILOL 3.125MG TABLET 3.125 MG PO (20:46)
[2023-03-12] MEDS: GABAPENTIN 300MG CAPSULE 300 MG PO (20:46)
[2023-03-12] MEDS: TRAZODONE 50MG TABLET 50 MG PO (20:46)
[2023-03-12] MEDS: INSULIN GLARGINE 100 UNITS/ML 3ML FLEXPEN 20 UNIT SQ (20:55)
[2023-03-12] MEDS: humaLOG 100 UNITS/ML 3ML VIAL (SSI) SQ (20:56)
[2023-03-12] MEDS: HYDROCODONE/APAP 5/325 MG TABLET 1 TAB PO (21:31)
--- NOTE | 2023-03-12 22:37 | PC.NURSE ---
Patient has had bipap on since 2017. Patient started saying she wanted the bipap off complaining making my nose cold and complaining of positioning.Education provided on benefits of wearing it. Patient pulled mask off Respiratory was called to assist and are at bedside at this time.
--- NOTE | 2023-03-12 22:47 | PC.NURSE ---
Glennn refusing to wear bipap. AZAEL Vanegas has been made aware. Patient currently on 4LNC no distress is noted. AOx3
[2023-03-13] VITALS (14 sets, daily range): BP systolic 107–149; BP diastolic 50–76; PULSE 60–100; RESP 18–24; TEMP 36.4–37.8; O2SAT 88–96; BMI 38.2
[2023-03-13] MEDS: IPRATROPIUM/ALBUTEROL 3 ML NEB IH ×2 (02:35→05:58)
[2023-03-13] MEDS: CEFEPIME HCL 2 GM in 0.9 % SODIUM CHLORIDE 100 ML IV ×2 (04:48→17:37)
--- NOTE | 2023-03-13 04:52 | PC.NURSE ---
Patient has rested well this shift. Refused to wear bipap. No acute changes noted this shift. Purewick remains in place draining dark yellow urine. Patient is AOx3 able to make needs known. Call cordero, water pitcher, bedside table and personal belongings all with in reach. Care is ongoing.
[2023-03-13] MEDS: ACETAMINOPHEN 325MG TAB 650 MG PO ×3 (05:24→19:48)
[2023-03-13] MEDS: BUDESONIDE 0.5MG/2ML NEB 0.5 MG IH (05:57)
[2023-03-13 06:36] LABS: POC Glucose,Bedside 78 (70-110)
[2023-03-13 07:16] LABS: Basophils # 0.1 K/mm3 (0-0.2); Basophils % 0.5 % (0.1-2.0); Eosinophils # 0.2 K/mm3 (0.0-0.4); Eosinophils % 1.6 % (0.1-12.0); Hematocrit 42.5 % (37.0-47.0); Hemoglobin 13.1 g/dL (12.2-16.2); Lymphocytes # 1.7 K/mm3 (0.7-4.5); Lymphocytes % 11.1 % (10-50); Mean Corpuscular HGB Conc 30.8 g/dL (31.8-35.4); Mean Corpuscular Hemoglobin 25.3 pg (27.0-31.2); Mean Corpuscular Volume 82.2 fl (81-99); Mean Platelet Volume 8.4 fl (7.4-10.4); Monocytes % 6.4 % (1.7-9.3); Neutrophils # 12.1 K/mm3 (1.8-7.8); Neutrophils % 80.4 % (37.0-80.0); Platelet Count 276 K/mm3 (142-424); Red Blood Count 5.17 M/mm3 (4.20-5.40); Red Cell Distribution Width 19.9 % (11.5-17.5)
[2023-03-13 07:19] LABS: MANUAL DIFFERENTIAL MANUAL DIFFERENTIAL (MANUAL DIFF)
[2023-03-13 07:40] LABS: Chloride 94 mmol/L (98-107); Potassium 4.4 mmoL/L (3.5-5.1); Sodium 134 mmol/L (136-145)
[2023-03-13 07:43] LABS: Anion Gap 9.4 mEq/L (5-15); Blood Urea Nitrogen 25 mg/dl (7-17); Calcium 8.6 mg/dl (8.4-10.2); Carbon Dioxide 35 mmol/L (22.0-30.0); Creatinine Clearance Estimated 80 mL/min (50-200); Estimated Glomerular Filt Rate 61 ml/min (>60); GFR (African American) 74 ML/MIN (>60); Glucose 95 mg/dl (74-100)
[2023-03-13 08:38] LABS: Eosinophils % 1 % (0-3); Lymphocytes % 9 % (10-50); Monocytes % 11 % (2-9); Neutrophils % 78 % (42-76); Total Cells Counted 100
[2023-03-13 08:39] LABS: Anisocytosis 1+; Platelet Estimate Normal; Poikilocytosis 1+
[2023-03-13 08:40] LABS: Hypochromasia 1+
[2023-03-13 08:43] LABS: Microcytosis 1+; Spherocytes 1+
--- NOTE | 2023-03-13 09:21 | CA_ITS ---
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 233.0 (50-130 cm/s) AO Peak GR. 21.80 mmHg AO Mean GR. 11.90 (<5 mmHg) AO VTI 40.9 (18-25 cm) KACY (VTI) 1.20 (2.5-4.5 cm2) Pulmonary Valve PV Peak Velocity 87.0 (50-150 cm/s) Tricuspid Valve TR P. Velocity 400.00 cm/s RAP Estimate 10.00 mmHg RVSP 73.90 mmHg Left Ventricle The left ventricle is normal size. There is low normal LV systolic function. There is increased LV wall thickness. Grade 3 diastolic dysfunction is present. There is moderate hypokinesis of the septal, anteroseptal, and inferoseptal LV [place]. LVEF is 50%. Right Ventricle The right ventricle is moderately dilated. There is moderate reduction in RV systolic function. Atria The left atrium size is mildly dilated. Right atrium is moderately dilated. There is no Doppler evidence of interatrial shunt. Aortic Valve The aortic valve is moderately thickened. Mild to moderate aortic stenosis. Peak velocity 2.4 m/s. Mean AV gradient 12 mmHg. Max AV gradient 22 mmHg. KACY by continuity equation is 1.2 cm???. Trace aortic regurgitation Mitral Valve The mitral valve is mildly thickened. No evidence of mitral valve stenosis. Mild mitral regurgitation. Tricuspid Valve The tricuspid valve leaflets are thin and pliable. Moderate tricuspid regurgitation. RVSP is 40-45 mmHg. Pulmonic Valve The pulmonary valve is normal in structure. Trace pulmonic regurgitation. Great Vessels The aortic root is normal in size. The ascending aorta is not well-visualized. The IVC is dilated, but collapses > 50% with respirophasic variation. RA pressure is estimated at 8 mmHg. Pericardium There is no pericardial effusion. Other Information Study Quality: Technically Difficult Conclusion Technically difficult study due to poor acoustic windows. Low normal LV systolic function (LVEF 50%). Grade 3 diastolic dysfunction. Moderate hypokinesis of the septal, anteroseptal, and inferoseptal LV [place]. Moderate RV dilation with moderate RV dysfunction. Mild to moderate ( Peak velocity 2.4 m/s. Mean AV gradient 12 mmHg. Max AV gradient 22 mmHg. KACY by continuity equation is 1.2 cm???). Mild MR. Moderate TR. Further evaluation for the wall motion abnormalities is recommended. Also, serial TTE evaluations for the is also recommended. Electronically signed by : Radha Hitchcock MD 03/17/2023 20:39:21
[2023-03-13] MEDS: HYDROCODONE/APAP 5/325 MG TABLET 1 TAB PO (09:30)
[2023-03-13] MEDS: POLYETHYLENE GLYCOL 3350 17 GM PACKET PO (09:31)
[2023-03-13] MEDS: ASPIRIN 81MG CHEWABLE TABLET 81 MG PO (09:31)
[2023-03-13] MEDS: FERROUS SULFATE 325MG TABLET 325 MG PO (09:31)
[2023-03-13] MEDS: CARVEDILOL 3.125MG TABLET 3.125 MG PO ×2 (09:33→20:34)
[2023-03-13] MEDS: BUSPIRONE HCL 10 MG TABLET PO ×2 (09:33→20:34)
[2023-03-13] MEDS: APIXABAN 5MG TABLET 5 MG PO ×2 (09:33→20:35)
[2023-03-13] MEDS: FUROSEMIDE 40MG/4ML VIAL 40 MG IV (09:35)
[2023-03-13] MEDS: GABAPENTIN 300MG CAPSULE 300 MG PO ×2 (09:35→20:34)
--- NOTE | 2023-03-13 09:45 | P.PN_ITS ---
Subjective *Date: 03/13/23 *Time: 11:24 Interval history: No acute respiratory events overnight. Patient admits improvement in her respiratory symptoms. Pulmonology Exam Inpatient Vital signs and Labs for Last 24 Hours: Temp Pulse Resp BP Pulse Ox O2 Del Method O2 Flow Rate 97.6 F 80 18 128/69 92 L Nasal Cannula 3 03/13/23 08:05 03/13/23 08:00 03/13/23 04:00 03/13/23 04:00 03/13/23 04:00 03/13/23 04:00 03/13/23 04:00 FiO2 40 03/12/23 22:00 Laboratory Results - last 24 hr 03/12/23 10:33: SARS-CoV-2 (PCR) Not detected, Influenza A Untype (PCR) Not detected, Influenza Type B (PCR) Not detected 03/12/23 10:34: VBG pH 7.29 L, VBG pCO2 56.1 H, VBG pO2 84.5 H, VBG HCO3 26.3, VBG Total CO2 28.0 H, VBG O2 Saturation 95.7 H, VBG Base Excess -0.3 03/12/23 11:15: WBC 22.7 H*, RBC 5.40, Hgb 13.7, Hct 43.8, MCV 81.1, MCH 25.4 L, MCHC 31.4 L, RDW 19.9 H, Plt Count 309, MPV 8.5, Neut % (Auto) 89.4 H, Lymph % (Auto) 4.4 L, [place] % (Auto) 5.2, Eos % (Auto) 0.8, Baso % (Auto) 0.3, Neut # (Auto) 20.3 H, Lymph # (Auto) 1.0, [place] # (Auto) 1.2 H, Eos # (Auto) 0.2, Baso # (Auto) 0.1, Total Counted 100, Neutrophils % (Manual) 90 H, Lymphocytes % (Manual) 3 L, Monocytes % (Manual) 7, Platelet Estimate Normal, Hypochromasia 1+, Poikilocytosis 1+, Ovalocytes 1+, D-Dimer 0.50, Sodium 131 L, Potassium 5.5 H, Chloride 94 L, Carbon Dioxide 32 H, Anion Gap 10.5, BUN 26 H, Creatinine 1.00, Estimated Creat Clear 63, Estimated GFR 54 L, Est GFR ( Amer) 66, Glucose 138 H, Lactate 1.4, Calcium 9.0, Total Bilirubin 0.6, AST 48 H, ALT 27, Alkaline Phosphatase 62, Troponin I 0.05 H, NT-Pro-B Natriuret Pep 2340 H, Total Protein 7.7, Albumin 4.4, Globulin 3.3 H, Albumin/Globulin Ratio 1.3 03/12/23 12:08: Urine Color Yellow, Urine Appearance Clear, Urine pH 6.0, Ur Specific [place] 1.020, Urine Protein 2+, Urine Glucose (UA) Trace, Urine Ketones Negative, Urine Blood Negative, Urine Nitrate Negative, Urine Bilirubin Negative, Urine Urobilinogen 0.2, Ur Leukocyte Esterase Negative, Urine RBC None, Urine WBC None, Ur Squamous Epith Cells Occasional, Urine Bacteria Trace 03/12/23 14:00: Troponin I 0.11 H 03/12/23 16:00: Specimen Source Left brachial, O2 % 30%, ABG pH 7.31 L, ABG pCO2 61.2 H, ABG pO2 57.3 L, ABG HCO3 30.4 H, ABG Total CO2 32.3 H, ABG O2 Saturation 87 L*, ABG Base Excess 4.2 H, [place] Test Acceptable, Vent Rate 20 03/12/23 17:59: Troponin I 0.19 H, Procalcitonin 0.258 03/12/23 20:33: POC Glucose 193 H 03/13/23 06:12: POC Glucose 78 03/13/23 07:10: WBC 15.0 H D, RBC 5.17, Hgb 13.1, Hct 42.5, MCV 82.2, MCH 25.3 L , MCHC 30.8 L, RDW 19.9 H, Plt Count 276, MPV 8.4, Neut % (Auto) 80.4 H, Lymph % (Auto) 11.1, [place] % (Auto) 6.4, Eos % (Auto) 1.6, Baso % (Auto) 0.5, Neut # (Auto) 12.1 H, Lymph # (Auto) 1.7, [place] # (Auto) 1.0, Eos # (Auto) 0.2, Baso # (Auto) 0.1, Total Counted 100, Neutrophils % (Manual) 78 H, Band Neutrophils % 1.0, Lymphocytes % (Manual) 9 L, Monocytes % (Manual) 11 H, Eosinophils % (Manual) 1, Platelet Estimate Normal, Hypochromasia 1+, Poikilocytosis 1+, Anisocytosis 1+, Microcytosis 1+, Spherocytes 1+, Ovalocytes , Sodium 134 L, Potassium 4.4, Chloride 94 L, Carbon Dioxide 35 H, Anion Gap 9.4, BUN 25 H, Creatinine 0.90, Estimated Creat Clear 80, Estimated GFR 61, Est GFR ( Amer) 74, Glucose 95 D, Calcium 8.6 I & O for Labs for Last 24 Hours: Intake & Output 03/10/23 03/11/23 03/12/23 03/13/23 23:59 23:59 23:59 23:59 Intake Total 640 / 760 580 / 580 Output Total 1250 / 1250 700 / 700 Balance -610 / -490 -120 / -120 Weight 224 lb 6 oz 224 lb 5.302 oz Constitutional: Present moderate distress Head: Present normocephalic and atraumatic ENT: Present normal exam, normal oropharynx and mucous membranes moist Neck: Present normal inspection and full ROM Respiratory: Present prolonged expiratory phase, respiratory distress and wheezes; Absent able to speak in complete sentences Cardiac: Present S1/S2, Tachycardia and radial pulses present GI: Present soft and distention; Absent tenderness or guarding Rectal (female): Present deferred (female): Present deferred Skin: Present intact; Absent cyanosis or jaundice Neuro: Present alert, awake and oriented x 3 Extremities: Present normal inspection; Absent clubbing or cyanosis Psychiatric: Present normal affect and cooperative Assessment and Plan *Assessment and plan (1) Acute on chronic respiratory failure with hypoxia and hypercapnia: Status: Acute Category: Medical Code(s): J96.21 - Acute and chronic respiratory failure with hypoxia; J96.22 - Acute and chronic respiratory failure with hypercapnia (2) Pneumonia: Status: Acute Category: Medical Code(s): J18.9 - Pneumonia, unspecified organism Plan Ms. Sena is a 72-year-old [facility] resident from [place]-carries a diagnosis of COPD, chronic hypoxic respiratory failure on 3 L nasal cannula, sleep apnea admitted to the hospital in January 2023 for COPD exacerbation hypercarbic respiratory failure, discharged to the [facility] on BiPAP therapy presented to the hospital worsening respiratory distress and pulmonary was called for further evaluation and management. Significant neutrophilic leukocytosis upon admission. Venous blood gas upon admission showed mild hypercarbic respiratory with a pH of 7.29 and pCO2 56.1. COVID-19 and flu PCR negative On my initial examination of the patient mentation appears disproportionate to the noted hypercarbic, will repeat ABG. CT head upon admission concerning for prior hemorrhage or infection, will defer to primary team for further evaluation and management. Chest x-ray upon admission concerning for right lower lobe airspace disease. Interval update No acute respiratory events overnight. Improving respiratory status. Patient refused BiPAP yesterday night. Tolerated well remains on nasal cannula. Continue to receive vancomycin and cefepime no significant events increasing cefepime. Leukocytosis improving. Significantly improved mentation, alert and oriented x 3 Plan: -Continue nasal oxygen supplementation to maintain O2 saturation below 92% and above Continue vancomycin and Cefepime pending blood and sputum cultures And nasal MRSA Initiate Trelegy 100 inhaler along with DuoNebs every 6 hours on as-needed basis. Will obtain BiPAP compliance report from [facility]. # Thank you for involving pulmonary in this patient care. Will continue to follow.
--- NOTE | 2023-03-13 11:05 | P.CONPHA_ITS ---
Pharmacy Intervention Comments: MEDICATION RECONCILIATION COMPLETE USING MAR FROM [facility].
--- NOTE | 2023-03-13 11:05 | HMH.PHAINT1 ---
Pharmacy Intervention Comments: MEDICATION RECONCILIATION COMPLETE USING MAR FROM [facility].
[2023-03-13 12:46] LABS: POC Glucose,Bedside 134 (70-110)
--- NOTE | 2023-03-13 13:41 | EXP.CARD.CON ---
History of Present Illness History of Present Illness Consult date: 03/13/23 Requesting physician: Margy Quijano Consult reason: shortness of breath Chief complaint: SOA History of present illness: This is a 72-year-old female who resides at a care home facility and presented to the emergency department with complaints of shortness of breath. The patient had had 3 to 4-day history of shortness of breath associated with bilateral lower extremity edema. She denies any chest pain or pressure. She states that she has just not been feeling well but denies any fever or chills. She denies nausea, vomiting, diarrhea. Shortness of breath is associated with orthopnea. She does have a past medical history of coronary artery disease, chronic atrial fibrillation on Eliquis, hypertension, hyperlipidemia, diabetes and COPD. Patient was admitted for pneumonia and sepsis. She is also having an acute exacerbation of chronic CHF and an elevated troponin. [facility] Disclaimer: The information contained in this section may have been updated after the patient was seen, as this information can be updated by other users. Medical History (Updated 03/13/23 @ 13:50 by Carisa Gonzalez APRN) Anxiety Atrial fibrillation BMI 30.0-30.9,adult Callus of foot Class 2 obesity due to excess calories with body mass index (BMI) of 39.0 to 39.9 in adult Congestive heart failure COPD (chronic obstructive pulmonary disease) Coronary artery disease Depression Diabetes mellitus, type 2 Diabetic foot Fibromyalgia GERD (gastroesophageal reflux disease) Heart failure HFrEF (heart failure with reduced ejection fraction) HLD (hyperlipidemia) HTN (hypertension) Insomnia Iron deficiency anemia Lymphedema Major depressive disorder Onychodystrophy Onychomycosis Osteoarthritis Osteoporosis Paresthesia of both lower extremities Pneumonia Pulmonary hypertension Right ventricular dilation Surgical History H/O hernia repair H/O: hysterectomy History of bladder surgery History of coronary artery stent placement Family History Other No significant family history Social History (Updated 03/12/23 @ 14:26 by Phuong Foster, FELIPA) Smoking Status: Unknown if ever smoked alcohol intake: never substance use type: denies use current occupational status: retired and disabled Travel in the last 8 weeks: None housing: care home lives independently: No care home: Yes Review of Systems Review of Systems Review of systems:: pertinent systems reviewed and negative unless documented below Constitutional Constitutional: Reports system reviewed and no additional complaints, except as documented, Reports fatigue and Reports lethargy Eyes Eyes: Reports system reviewed and no additional complaints, except as documented ENT Ears, Nose, Mouth, and Throat: Reports system reviewed and no additional complaints, except as documented *Cardiovascular Cardiovascular: Reports system reviewed and no additional complaints, except as documented, Denies chest pain, Reports dyspnea, Reports dyspnea on exertion and Reports orthopnea *Respiratory Respiratory: Reports system reviewed and no additional complaints, except as documented, Reports chest congestion, Reports cough, Reports dyspnea and Reports dyspnea on exertion *Gastrointestinal Gastrointestinal: Reports system reviewed and no additional complaints, except as documented *Genitourinary Genitourinary: Reports system reviewed and no additional complaints, except as documented *Musculoskeletal Musculoskeletal: Reports system reviewed and no additional complaints, except as documented Integumentary/Breasts Skin/Breast: Reports system reviewed and no additional complaints, except as documented *Neurologic Neurologic: Reports system reviewed and no additional complaints, except as documented Psychiatric Psychiatric: Reports system reviewed and no additional complaints, except as documented Endocrine Endocrine: Reports system reviewed and no additional complaints, except as documented and Reports fatigue Hematologic/Lymphatic Hematologic/Lymphatic: Reports system reviewed and no additional complaints, except as documented Allergic/Immunologic Allergic/Immunologic: Reports system reviewed and no additional complaints, except as documented Exam Data for Last 24 hours Vital signs and Labs for Last 24 Hours: Temp Pulse Resp BP Pulse Ox O2 Del Method O2 Flow Rate 99.3 F 71 24 107/65 L 88 L Nasal Cannula 3 03/13/23 11:11 03/13/23 12:00 03/13/23 12:00 03/13/23 12:00 03/13/23 12:00 03/13/23 13:00 03/13/23 13:00 FiO2 40 03/12/23 22:00 Laboratory Results - last 24 hr 03/12/23 14:00: Troponin I 0.11 H 03/12/23 16:00: Specimen Source Left brachial, O2 % 30%, ABG pH 7.31 L, ABG pCO2 61.2 H, ABG pO2 57.3 L, ABG HCO3 30.4 H, ABG Total CO2 32.3 H, ABG O2 Saturation 87 L*, ABG Base Excess 4.2 H, [place] Test Acceptable, Vent Rate 20 03/12/23 17:59: Troponin I 0.19 H, Procalcitonin 0.258 03/12/23 20:33: POC Glucose 193 H 03/13/23 06:12: POC Glucose 78 03/13/23 07:10: WBC 15.0 H D, RBC 5.17, Hgb 13.1, Hct 42.5, MCV 82.2, MCH 25.3 L, MCHC 30.8 L, RDW 19.9 H, Plt Count 276, MPV 8.4, Neut % (Auto) 80.4 H, Lymph % (Auto) 11.1, [place] % (Auto) 6.4, Eos % (Auto) 1.6, Baso % (Auto) 0.5, Neut # (Auto) 12.1 H, Lymph # (Auto) 1.7, [place] # (Auto) 1.0, Eos # (Auto) 0.2, Baso # (Auto) 0.1, Total Counted 100, Neutrophils % (Manual) 78 H, Band Neutrophils % 1.0, Lymphocytes % (Manual) 9 L, Monocytes % (Manual) 11 H, Eosinophils % (Manual) 1, Platelet Estimate Normal, Hypochromasia 1+, Poikilocytosis 1+, Anisocytosis 1+, Microcytosis 1+, Spherocytes 1+, Ovalocytes , Sodium 134 L, Potassium 4.4, Chloride 94 L, Carbon Dioxide 35 H, Anion Gap 9.4, BUN 25 H, Creatinine 0.90, Estimated Creat Clear 80, Estimated GFR 61, Est GFR ( Amer) 74, Glucose 95 D, Calcium 8.6 03/13/23 11:42: POC Glucose 134 H I & O for Last 24 hours: Intake & Output 03/10/23 03/11/23 03/12/23 03/13/23 23:59 23:59 23:59 23:59 Intake Total 640 / 760 820 / 820 Output Total 1250 / 1250 1600 / 1600 Balance -610 / -490 -780 / -780 Weight 224 lb 6 oz 223 lb 11.249 oz Constitutional Constitutional: no acute distress and average body habitus *Routine HEENT Exam Head: Present normocephalic and atraumatic ENT: Present mucous membranes moist *Routine Neck Exam Neck: Present supple, full ROM and normal carotid upstroke; Absent JVD, carotid bruit or lymphadenopathy *Routine Respiratory Exam Respiratory: Present decreased breath sounds, wheezes, normal respiratory effort, able to speak in complete sentences and symmetric chest movement *Routine Cardiovascular Exam Cardiovascular: Present Normal S1, Normal S2 and irregularly irregular; Absent murmur or gallop *Routine Abdominal Exam Abdominal: Present soft and normoactive bowel sounds; Absent tenderness, distended or organomegaly *Routine Extremities Exam Extremities: Present full ROM, pulses intact and normal capillary refill; Absent cyanosis, clubbing or edema *Routine Skin Exam Skin: Present intact and warm; Absent erythema *Routine Neurological Exam Neurological: Present alert, oriented X3 and CN II-XII intact; Absent sensory deficit or motor deficit Routine Psychiatric Exam Psychiatric: Present normal affect Meds Home Medications and Allergies Home Medications Medication Instructions Recorded Confirmed Type ergocalciferol (vitamin D2) 1,250 1,250 mcg PO MO Supplement 08/12/20 03/12/23 History mcg (50,000 unit) capsule rosuvastatin 10 mg tablet 10 mg PO HS Cholesterol 08/12/20 03/12/23 History tiotropium bromide 2.5 1 puff inhalation DAILY Copd 08/12/20 03/12/23 History mcg/actuation mist for inhalation (Spiriva Respimat) acetaminophen 500 mg tablet 1,000 mg PO Q6HP PRN Mild Pain 12/18/22 03/12/23 History (Tylenol Extra Strength) (Scale Score 1-4) albuterol sulfate 90 mcg/actuation 2 puff inhalation Q4HP PRN 12/18/22 03/12/23 History aerosol inhaler shortness of air or wheezing related to copd amitriptyline 25 mg tablet 25 mg PO HS mood 12/18/22 03/12/23 History apixaban 5 mg tablet (Eliquis) 5 mg PO BID Blood Thinner/DVT 12/18/22 03/12/23 History Prophylaxis aspirin 81 mg capsule 81 mg PO DAILY Heart Health 12/18/22 03/12/23 History budesonide-formoterol HFA 160 2 puff inhalation BIDRT Breathing 12/18/22 03/13/23 History mcg-4.5 mcg/actuation aerosol Problems inhaler (Symbicort) buspirone 10 mg tablet 10 mg PO BID Anxiety 12/18/22 03/12/23 History carvedilol 3.125 mg tablet 3.125 mg PO BID High Blood Pressure 12/18/22 03/12/23 History docusate sodium 100 mg tablet 100 mg PO BID Constipation 12/18/22 03/12/23 History ferrous sulfate 324 mg (65 mg 324 mg PO DAILY anemia 12/18/22 03/12/23 History iron) tablet,delayed release icosapent ethyl 1 gram capsule 1 g PO BID Hyperlipidemia 12/18/22 03/12/23 History (Vascepa) insulin lispro 100 unit/mL 0 sliding scale dose SQ ACHS 12/18/22 03/12/23 History subcutaneous pen Diabetes multivitamin 1 tab PO DAILY Supplement 12/18/22 03/12/23 History nitroglycerin 0.4 mg sublingual 0.4 mg sublingual Q5MINP PRN Chest 12/18/22 03/12/23 History tablet Pain omeprazole 40 mg capsule,delayed 40 mg PO HS Acid Reflux 12/18/22 03/12/23 History release polyethylene glycol 3350 17 gram 17 g PO DAILY Constipation 12/18/22 03/12/23 History oral powder packet (Miralax) trazodone 50 mg tablet 50 mg PO HS Insomnia 12/18/22 03/12/23 History acetaminophen 500 mg tablet 500 mg PO AC Pain 12/19/22 03/12/23 History albuterol sulfate 2.5 mg/3 mL 2.5 mg inhalation Q4HP PRN 12/19/22 03/12/23 History (0.083 %) solution for nebulization shortness of air or wheezing gabapentin 300 mg capsule 300 mg PO BID Pain 12/19/22 03/12/23 History paroxetine HCl 40 mg tablet 40 mg PO HS mood 12/19/22 03/12/23 History hydrocodone 5 mg-acetaminophen 325 1 tab PO Q12HP PRN Moderate Pain 01/12/23 03/13/23 History mg tablet (Scale Score 5-6) insulin glargine 100 unit/mL (3 20 unit (0.2 mL) SQ HS Diabetes 30 01/12/23 03/12/23 Rx mL) subcutaneous pen days #0 mL oxymetazoline 0.05 % nasal spray 2 spray intranasal Q12HP PRN Nasal 01/12/23 03/12/23 History (Afrin Sinus (oxymetazoline)) Congestion bumetanide 1 mg tablet 1 mg PO BIDL Fluid 03/12/23 03/13/23 History spironolactone 50 mg tablet 50 mg PO DAILY Fluid 03/12/23 03/12/23 History (Aldactone) New Prescriptions to Start Prescriptions: Allergies Allergy/AdvReac Type Severity Reaction Status Date / Time cephalexin Allergy Verified 03/12/23 10:36 Penicillins Allergy Verified 03/12/23 10:36 Assessment and Plan *Assessment and plan (1) Elevated troponin: Status: Acute Category: Medical Code(s): R79.89 - Other specified abnormal findings of blood chemistry (2) HFrEF (heart failure with reduced ejection fraction): Status: Acute Category: Medical Code(s): I50.20 - Unspecified systolic (congestive) heart failure (3) Right ventricular dilation: Status: Acute Category: Medical Code(s): I51.7 - Cardiomegaly (4) Atrial fibrillation: Status: Acute Qualifiers: Atrial fibrillation type: unspecified chronic Qualified Code(s): I48.20 - Chronic atrial fibrillation, unspecified Category: Medical Code(s): I48.91 - Unspecified atrial fibrillation (5) Acute on chronic respiratory failure with hypoxia and hypercapnia: Status: Acute Category: Medical Code(s): J96.21 - Acute and chronic respiratory failure with hypoxia; J96.22 - Acute and chronic respiratory failure with hypercapnia (6) Sepsis due to pneumonia: Status: Acute Category: Medical Code(s): J18.9 - Pneumonia, unspecified organism; A41.9 - Sepsis, unspecified organism (7) Chronic hypoxemic respiratory failure: Status: Acute Category: Medical Code(s): J96.11 - Chronic respiratory failure with hypoxia (8) Pneumonia: Status: Acute Qualifiers: Pneumonia type: due to unspecified organism Laterality: right Lung location: unspecified part of lung Qualified Code(s): J18.9 - Pneumonia, unspecified organism Category: Medical Code(s): J18.9 - Pneumonia, unspecified organism (9) Coronary artery disease: Status: Acute Qualifiers: Coronary Disease-Associated Artery/Lesion type: [place] artery [place] vs. transplanted heart: [place] heart Associated angina: with other forms of angina Qualified Code(s): I25.118 - Atherosclerotic heart disease of [place] coronary artery with other forms of angina pectoris Category: Medical Code(s): I25.10 - Atherosclerotic heart disease of [place] coronary artery without angina pectoris (10) Pulmonary hypertension: Status: Acute Category: Medical Code(s): I27.20 - Pulmonary hypertension, unspecified (11) HTN (hypertension): Status: Acute Qualifiers: Hypertension type: primary hypertension Qualified Code(s): I10 - Essential (primary) hypertension Category: Medical Code(s): I10 - Essential (primary) hypertension (12) HLD (hyperlipidemia): Status: Acute Qualifiers: Hyperlipidemia type: mixed hyperlipidemia Qualified Code(s): E78.2 - Mixed hyperlipidemia Category: Medical Code(s): E78.5 - Hyperlipidemia, unspecified (13) Diabetes mellitus, type 2: Status: Acute Qualifiers: 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 The patient was admitted to the hospital with pneumonia and sepsis. She is currently on IV antibiotics and high flow oxygen. Pulmonology has been consulted. 2. Will obtain an echocardiogram to evaluate her LV function. Preliminary echo shows an ejection fraction of 40 to 45%. She does have some LV dysfunction which is most likely new onset. 3. She does have elevated troponin consistent with a non-STEMI. Her troponin max 0.19. The patient will need an ischemic evaluation with left cardiac catheterization during this hospitalization due to her non-STEMI and new onset cardiomyopathy but once she has improved from her pneumonia and sepsis. So we will postpone left cardiac catheterization at this time. 4. Will continue to aggressively diurese the patient with IV Lasix. Will increase this to 80 mg IV twice daily. 5. Her spironolactone has been held due to hyperkalemia. 6. Start Jardiance 10 mg daily and Entresto 24/26 mg p.o. twice daily for HFrEF. 7. Continue carvedilol. 8. Her echocardiogram also shows severe RV dilatation. She most likely has severe pulmonary hypertension. Pulmonology has already been consulted because we do suspect that this may be from underlying lung disease. 9. Her blood pressure is well-controlled. 10. Her LDL goal is less than 55. Will get a lipid panel in the morning. She is on a statin. 11. The patient does have chronic atrial fibrillation. She is currently rate controlled. She is on Eliquis for long-term anticoagulation. She denies any bleeding. 12. The patient is diabetic. She will need aggressive control of her diabetes. Will defer this to the hospitalist. 13. Further recommendations will be made pending the patient's response to treatment and the results of her echocardiogram today. Thank you for the opportunity to help participate in the care of this patient. All recommendations and orders are per Dr. Hitchcock.
[2023-03-13] MEDS: SACUBITRIL/VALSARTAN 24-26MG TABLET 1 EACH PO ×2 (14:59→20:35)
[2023-03-13] MEDS: EMPAGLIFLOZIN 10MG TABLET 10 MG PO (14:59)
[2023-03-13] MEDS: VANCOMYCIN/WATER FOR INJ (PEG) 1.25 GM/250 ML PIGGYBACK IV (14:59)
[2023-03-13] MEDS: FUROSEMIDE 40MG/4ML VIAL 80 MG IV (17:28)
--- NOTE | 2023-03-13 17:34 | EXP.ACUTE.PN ---
Subjective *Date: 03/13/23 *Time: 18:31 Interval history: Setting appropriate this morning on 3 L nasal cannula. Wore BiPAP briefly overnight, is intolerant of sound and mask as it is much louder than her device [facility]. Denies any shortness of breath. Appears alert and oriented at baseline. Afebrile. No nausea or vomiting. Medical Exam Vital signs and Labs for Last 24 Hours: Vital Signs Temp Pulse Pulse Pulse Resp BP Pulse Ox 03/13/23 17:00 03/13/23 16:00 92 L 03/13/23 16:00 80 03/13/23 15:40 71 22 124/76 88 L 03/13/23 15:39 70 03/13/23 15:00 03/13/23 13:00 03/13/23 12:00 70 03/13/23 12:00 71 71 24 107/65 L 88 L 03/13/23 08:00 89 89 24 127/60 89 L 03/13/23 11:11 99.3 F 03/13/23 08:00 97 H 03/13/23 09:00 03/13/23 08:00 96 03/13/23 08:00 80 03/13/23 08:05 97.6 F 03/13/23 05:59 77 03/13/23 05:59 72 03/13/23 04:00 97.6 F 03/13/23 04:00 66 03/13/23 04:00 69 18 128/69 92 L 03/13/23 03:08 67 03/13/23 03:08 67 03/13/23 00:00 60 03/13/23 00:00 98.3 F 03/12/23 23:03 83 03/12/23 23:03 83 03/12/23 22:00 03/12/23 20:00 72 03/12/23 20:00 98.0 F 03/12/23 20:00 66 20 136/74 99 03/12/23 19:00 03/12/23 19:16 70 03/12/23 19:16 66 03/12/23 19:16 97 O2 Del Method O2 Flow Rate FiO2 03/13/23 17:00 Nasal Cannula 3 03/13/23 16:00 Nasal Cannula 3 03/13/23 16:00 03/13/23 15:40 Nasal Cannula 3 03/13/23 15:39 03/13/23 15:00 Nasal Cannula 3 03/13/23 13:00 Nasal Cannula 3 03/13/23 12:00 03/13/23 12:00 Nasal Cannula 3.5 03/13/23 08:00 Nasal Cannula 3 03/13/23 11:11 03/13/23 08:00 Nasal Cannula 3.5 03/13/23 09:00 Nasal Cannula 3 03/13/23 08:00 Nasal Cannula 3 03/13/23 08:00 03/13/23 08:05 03/13/23 05:59 03/13/23 05:59 03/13/23 04:00 03/13/23 04:00 03/13/23 04:00 Nasal Cannula 3 03/13/23 03:08 03/13/23 03:08 03/13/23 00:00 03/13/23 00:00 03/12/23 23:03 03/12/23 23:03 03/12/23 22:00 40 03/12/23 20:00 03/12/23 20:00 03/12/23 20:00 Nasal Cannula 03/12/23 19:00 Nasal Cannula 3 03/12/23 19:16 03/12/23 19:16 03/12/23 19:16 BiPAP 40 Intake and Output 03/13/23 03/13/23 03/13/23 07:59 15:59 23:59 Intake Total 340 / 1300 480 / 1300 480 / 1300 Output Total 700 / 2100 900 / 2100 500 / 2100 Balance -360 / -800 -420 / -800 -20 / -800 Intake: Intake, Oral Amount 240 / 1200 480 / 1200 480 / 1200 Intake, Total IV Amount 100 / 100 Cefepime HCl 2 gm In 0.9 % 100 / 100 Sodium Chloride 100 ml @ 200 mls/hr IV Q12H [facility] Rx#:[id number] Output: Output, Urine Amount 700 / 2100 900 / 2100 500 / 2100 Other: Number of Unmeasured Voids 1 2 0 Weight 101.755 kg 101.47 kg Patient Weight 03/13/23 23:59 Weight 101.47 kg Laboratory Results - last 24 hr 03/12/23 17:59: Troponin I 0.19 H, Procalcitonin 0.258 03/12/23 20:33: POC Glucose 193 H 03/13/23 06:12: POC Glucose 78 03/13/23 07:10: WBC 15.0 H D, RBC 5.17, Hgb 13.1, Hct 42.5, MCV 82.2, MCH 25.3 L, MCHC 30.8 L, RDW 19.9 H, Plt Count 276, MPV 8.4, Neut % (Auto) 80.4 H, Lymph % (Auto) 11.1, [place] % (Auto) 6.4, Eos % (Auto) 1.6, Baso % (Auto) 0.5, Neut # (Auto) 12.1 H, Lymph # (Auto) 1.7, [place] # (Auto) 1.0, Eos # (Auto) 0.2, Baso # (Auto) 0.1, Total Counted 100, Neutrophils % (Manual) 78 H, Band Neutrophils % 1.0, Lymphocytes % (Manual) 9 L, Monocytes % (Manual) 11 H, Eosinophils % (Manual) 1, Platelet Estimate Normal, Hypochromasia 1+, Poikilocytosis 1+, Anisocytosis 1+, Microcytosis 1+, Spherocytes 1+, Ovalocytes , Sodium 134 L, Potassium 4.4, Chloride 94 L, Carbon Dioxide 35 H, Anion Gap 9.4, BUN 25 H, Creatinine 0.90, Estimated Creat Clear 80, Estimated GFR 61, Est GFR ( Amer) 74, Glucose 95 D, Calcium 8.6 03/13/23 11:42: POC Glucose 134 H I & O for Labs for Last 24 Hours: Intake & Output 03/10/23 03/11/23 03/12/23 03/13/23 23:59 23:59 23:59 23:59 Intake Total 640 / 760 1300 / 1300 Output Total 1250 / 1250 2100 / 2100 Balance -610 / -490 -800 / -800 Weight 101.775 kg 101.47 kg Constitutional: Present no acute distress, morbidly obese, chronically ill appearing and cooperative Head: Present atraumatic and normocephalic ENT: Present normal exam Respiratory: Present prolonged expiratory phase, crackles and diminished air movement; Absent rhonchi or wheezes Cardiac: Present Reg Rate and Rhythm GI: Present soft and normal bowel sounds; Absent distention or tenderness Extremities: Present normal inspection, full ROM and edema (3+ to knees but improving) Skin: Present intact; Absent erythema Comment:: Stasis dermatitis of lower extremities Neuro: Present Grossly Intact, alert, awake, oriented x 3 and moves all extremities Assessment and Plan *Assessment and plan (1) Pneumonia: Status: Acute Qualifiers: Laterality: right Lung location: unspecified part of lung Pneumonia type: due to unspecified organism Qualified Code(s): J18.9 - Pneumonia, unspecified organism Category: Medical Code(s): J18.9 - Pneumonia, unspecified organism (2) Sepsis due to pneumonia: Status: Acute Category: Medical Code(s): J18.9 - Pneumonia, unspecified organism; A41.9 - Sepsis, unspecified organism (3) Acute on chronic respiratory failure with hypoxia and hypercapnia: Status: Acute Category: Medical Code(s): J96.21 - Acute and chronic respiratory failure with hypoxia; J96.22 - Acute and chronic respiratory failure with hypercapnia (4) Elevated troponin: Status: Acute Category: Medical Code(s): R79.89 - Other specified abnormal findings of blood chemistry (5) Atrial fibrillation: Status: Acute Qualifiers: Atrial fibrillation type: unspecified chronic Qualified Code(s): I48.20 - Chronic atrial fibrillation, unspecified Category: Medical Code(s): I48.91 - Unspecified atrial fibrillation (6) Diabetes mellitus, type 2: Status: Acute Qualifiers: Diabetes mellitus complication status: with other specified complication Diabetes mellitus halfway insulin use: with halfway use Qualified Code(s): E11.69 - Type 2 diabetes mellitus with other specified complication; Z79.4 - long term acute care registered nurse (current) use of insulin Category: Medical Code(s): E11.9 - Type 2 diabetes mellitus without complications (7) HTN (hypertension): Status: Acute Qualifiers: Hypertension type: primary hypertension Qualified Code(s): I10 - Essential (primary) hypertension Category: Medical Code(s): I10 - Essential (primary) hypertension (8) Pulmonary hypertension: Status: Acute Category: Medical Code(s): I27.20 - Pulmonary hypertension, unspecified (9) HFrEF (heart failure with reduced ejection fraction): Status: Acute Category: Medical Code(s): I50.20 - Unspecified systolic (congestive) heart failure Plan Patient is a 72-year-old female who [facility] presented to hospital due to shortness of breath. Patient has past medical history of hypertension hyperlipidemia diabetes mellitus CAD atrial fibrillation on Eliquis, COPD on 3 L nasal cannula. Patient mentions she has been feeling shortness of breath for past 3 to 4 days, she also has associated bilateral lower extremity swelling. She uses 2 L nasal cannula at baseline Denied fever chills diarrhea constipation dysuria. Continues to require inpatient management. Cardiology and pulmonology assisting with care, discussed case today. Problems addressed as follows: Acute on chronic CHF Elevated troponin likely demand ischemia Pulmonary hypertension, severe RV dilation on echo -Echo obtained with preliminary EF 40 to 45%. Has some LV dysfunction concerning for new onset. Discussed case with cardiology, recommend patient to have ischemic workup in the near future. Awaiting for improvement from her pneumonia and sepsis. If unable to perform prior to discharge, will plan for close follow-up to evaluate cardiomyopathy. - Recommend continuing aggressive diuresis with IV Lasix 80 mg twice vickie, holding spironolactone due to hyperkalemia. - Potassium 4.4 today. Creatinine 0.9 and BUN 25. Repeat CBC, CMP, magnesium ordered for the morning. -Cardiology recommends initiating Jardiance 10 mg daily and Entresto 24/26 mg twice daily. Continue carvedilol twice daily -Has chronic A-fib, currently rate controlled. Continue Eliquis 5 mg twice daily Sepsis present on admission likely source right lung pneumonia Acute on chronic hypoxic respiratory failure likely secondary to CHF exacerbation, COPD exacerbation -Pulmonology consulted, discussed case this morning. Continue BiPAP while asleep or napping.. Continue supplemental oxygen as needed for goal sats greater 90%. Currently on 3 L. -Continue vancomycin and Cefepime pending blood and sputum cultures And nasal MRSA - Initiate Trelegy 100 inhaler along with DuoNebs every 6 hours on as-needed basis. -Discussed evaluating BiPAP compliance at her [facility]. Will request [facility]iary to send BiPAP to medical supply for interrogation to verify duration of use and need for possible adjustments in the outpatient setting. Iron deficiency anemia-monitor Diabetes mellitus -Insulin sliding scale - Resume home long-acting insulin DVT prophylaxis-on Eliquis
[2023-03-13 17:54] LABS: POC Glucose,Bedside 96 (70-110)
--- NOTE | 2023-03-13 18:49 | PC.NURSE ---
Midline dressing changed at this time r/t dressing lightly saturated with blood. sterile technique used, new biopatch and stat lock applied
[2023-03-13] MEDS: PANTOPRAZOLE 40MG TABLET 40 MG PO (20:34)
[2023-03-13] MEDS: ATORVASTATIN 40MG TABLET 40 MG PO (20:34)
[2023-03-13] MEDS: TRAZODONE 50MG TABLET 50 MG PO (20:34)
[2023-03-13] MEDS: PARoxetine 20MG TABLET 40 MG PO (20:35)
[2023-03-13] MEDS: AMITRIPTYLINE 25MG TABLET 25 MG PO (20:35)
[2023-03-13] MEDS: INSULIN GLARGINE 100 UNITS/ML 3ML FLEXPEN 20 UNIT SQ (20:42)
[2023-03-13 20:45] LABS: POC Glucose,Bedside 132 (70-110)
--- NOTE | 2023-03-13 21:42 | PC.NURSE ---
pt was asleep - woke pt up to put BiPAP on - patient refused numerous times - educated as to why it would be beneficial, still refused.
[2023-03-14] VITALS (8 sets, daily range): BP systolic 112–130; BP diastolic 63–80; PULSE 70–100; RESP 17–26; TEMP 36.9–37.5; O2SAT 90–94; BMI 37.1
[2023-03-14] MEDS: CEFEPIME HCL 2 GM in 0.9 % SODIUM CHLORIDE 100 ML IV ×2 (03:12→16:35)
--- NOTE | 2023-03-14 03:19 | PC.NURSE ---
Addendum entered by Mike Diaz RN 03/14/23 03:27: decreased to 4L NC @ 93% Original Note: during rounding, pt had removed oxygen - O2 @ 64% on RA. NC was reapplied at 3.5L and bumped up to 5L with sats at 88% now. RT notified. Patient reeducated on needing to put BiPAP on, still refusing.
[2023-03-14] MEDS: FLUTICASONE/UMECLIDIN/VILANTER 100/62.5/25MCG INHALER 1 PUFF IH (06:03)
[2023-03-14 06:30] LABS: POC Glucose,Bedside 87 (70-110)
[2023-03-14 06:38] LABS: Basophils # 0.1 K/mm3 (0-0.2); Basophils % 0.4 % (0.1-2.0); Eosinophils # 0.2 K/mm3 (0.0-0.4); Hematocrit 42.9 % (37.0-47.0); Hemoglobin 13.3 g/dL (12.2-16.2); Lymphocytes % 6.4 % (10-50); Mean Corpuscular Hemoglobin 25.6 pg (27.0-31.2); Mean Corpuscular Volume 82.6 fl (81-99); Mean Platelet Volume 8.4 fl (7.4-10.4); Monocytes # 0.9 K/mm3 (0.1-1.0); Monocytes % 5.8 % (1.7-9.3); Neutrophils # 13.4 K/mm3 (1.8-7.8); Neutrophils % 86.5 % (37.0-80.0); Platelet Count 251 K/mm3 (142-424); White Blood Count 15.5 K/mm3 (4.8-10.8)
[2023-03-14 06:45] LABS: MANUAL DIFFERENTIAL MANUAL DIFFERENTIAL (MANUAL DIFF)
[2023-03-14 06:47] LABS: Chloride 92 mmol/L (98-107); Chol/HDL Ratio 2.5 (1-3.5); Cholesterol 126 mg/dl (140-200); HDL Cholesterol 50 mg/dl (40-60); Potassium 4.1 mmoL/L (3.5-5.1); Sodium 134 mmol/L (136-145); Triglycerides 70 mg/dl (30-150); VLDL Cholesterol 14 mg/dL (0-40)
[2023-03-14 06:50] LABS: Blood Urea Nitrogen 20 mg/dl (7-17); Creatinine Clearance Estimated 78 mL/min (50-200); Estimated Glomerular Filt Rate 70 ml/min (>60); GFR (African American) 85 ML/MIN (>60); Magnesium 1.8 mg/dl (1.6-2.3)
[2023-03-14 06:51] LABS: Calcium 8.7 mg/dl (8.4-10.2); Glucose 102 mg/dl (74-100)
[2023-03-14 06:57] LABS: Anion Gap 11.1 mEq/L (5-15); Carbon Dioxide 35 mmol/L (22.0-30.0)
[2023-03-14 07:03] LABS: Direct LDL Cholesterol 47.31 mg/dL (100-129)
--- NOTE | 2023-03-14 07:20 | P.PN_ITS ---
Subjective *Date: 03/14/23 *Time: 18:59 Interval history: 3 to 4 L nasal cannula oxygen small. O2 sats in the low 90s. Continues to wear BiPAP briefly overnight, mask is uncomfortable and device is loud however. Denies shortness of breath or chest pain. Continues to diurese well. Chest x- ray repeated this morning, shows stable findings. Afebrile, no nausea or vomiting. Medical Exam Vital signs and Labs for Last 24 Hours: Vital Signs Temp Pulse Pulse Pulse Pulse Resp BP 03/14/23 06:27 03/14/23 05:00 03/14/23 06:04 03/14/23 04:00 100 H 03/14/23 04:00 99.5 F 80 26 H 130/80 03/14/23 03:00 03/14/23 00:19 03/14/23 00:00 70 03/13/23 23:59 98.9 F 82 24 123/50 L 03/13/23 23:41 03/13/23 20:00 100 H 03/13/23 22:27 03/13/23 21:00 03/13/23 20:00 03/13/23 20:00 100.0 F H 96 H 22 125/71 03/13/23 18:45 03/13/23 10:00 67 22 149/70 H 03/13/23 18:02 03/13/23 16:00 92 H 03/13/23 17:00 03/13/23 16:00 03/13/23 16:00 80 03/13/23 15:40 71 22 124/76 03/13/23 15:39 70 03/13/23 15:00 03/13/23 13:00 03/13/23 12:00 70 03/13/23 12:00 71 71 24 107/65 L 03/13/23 08:00 89 89 24 127/60 03/13/23 11:11 99.3 F 03/13/23 08:00 97 H 03/13/23 09:00 03/13/23 08:00 03/13/23 08:00 80 03/13/23 08:05 97.6 F Pulse Ox O2 Del Method O2 Flow Rate 03/14/23 06:27 Nasal Cannula 4 03/14/23 05:00 Nasal Cannula 4 03/14/23 06:04 91 L Nasal Cannula 4 03/14/23 04:00 03/14/23 04:00 91 L Nasal Cannula 4 03/14/23 03:00 Nasal Cannula 5 03/14/23 00:19 Nasal Cannula 3.5 03/14/23 00:00 03/13/23 23:59 94 L Nasal Cannula 3.5 03/13/23 23:41 Nasal Cannula 3.5 03/13/23 20:00 03/13/23 22:27 Nasal Cannula 3.5 03/13/23 21:00 Nasal Cannula 3.5 03/13/23 20:00 90 L Nasal Cannula 3.5 03/13/23 20:00 88 L Nasal Cannula 3.5 03/13/23 18:45 Nasal Cannula 4 03/13/23 10:00 92 L Nasal Cannula 3 03/13/23 18:02 Nasal Cannula 3 03/13/23 16:00 Nasal Cannula 4 03/13/23 17:00 Nasal Cannula 3 03/13/23 16:00 92 L Nasal Cannula 3 03/13/23 16:00 03/13/23 15:40 88 L Nasal Cannula 3 03/13/23 15:39 03/13/23 15:00 Nasal Cannula 3 03/13/23 13:00 Nasal Cannula 3 03/13/23 12:00 03/13/23 12:00 88 L Nasal Cannula 3.5 03/13/23 08:00 89 L Nasal Cannula 3 03/13/23 11:11 03/13/23 08:00 Nasal Cannula 3.5 03/13/23 09:00 Nasal Cannula 3 03/13/23 08:00 96 Nasal Cannula 3 03/13/23 08:00 03/13/23 08:05 Intake and Output 03/13/23 03/13/23 03/14/23 15:59 23:59 07:59 Intake Total 480 / 1770 950 / 1770 Output Total 900 / 4500 2900 / 4500 300 / 300 Balance -420 / -2730 -1950 / -2730 -300 / -300 Intake: Intake, Oral Amount 480 / 1320 600 / 1320 Intake, Total IV Amount 350 / 450 Cefepime HCl 2 gm In 0.9 % 100 / 200 Sodium Chloride 100 ml @ 200 mls/hr IV Q12H [facility] Rx#:[id number] Vancomycin/Water For Inj (Peg) 250 / 250 1.25 gm In 250 ml @ 125 mls/hr IV Q24H [facility] Rx#:[id number] Output: Output, Urine Amount 900 / 4500 2900 / 4500 300 / 300 Other: Number of Unmeasured Voids 2 0 Weight 101.47 kg 98.747 kg Patient Weight 03/14/23 23:59 Weight 98.747 kg Laboratory Results - last 24 hr 03/13/23 07:10: Total Counted 100, Neutrophils % (Manual) 78 H, Band Neutrophils % 1.0, Lymphocytes % (Manual) 9 L, Monocytes % (Manual) 11 H, Eosinophils % (Manual) 1, Platelet Estimate Normal, Hypochromasia 1+, Poikilocytosis 1+, Anisocytosis 1+, Microcytosis 1+, Spherocytes 1+, Ovalocytes , Sodium 134 L, Potassium 4.4, Chloride 94 L, Carbon Dioxide 35 H, Anion Gap 9.4, BUN 25 H, Creatinine 0.90, Estimated Creat Clear 80, Estimated GFR 61, Est GFR ( Amer) 74, Glucose 95 D, Calcium 8.6 03/13/23 11:42: POC Glucose 134 H 03/13/23 17:32: POC Glucose 96 03/13/23 20:33: POC Glucose 132 H 03/14/23 06:02: POC Glucose 87 03/14/23 06:13: WBC 15.5 H, RBC 5.20, Hgb 13.3, Hct 42.9, MCV 82.6, MCH 25.6 L, MCHC 31.0 L, RDW 20.0 H, Plt Count 251, MPV 8.4, Neut % (Auto) 86.5 H, Lymph % (Auto) 6.4 L, [place] % (Auto) 5.8, Eos % (Auto) 1.0, Baso % (Auto) 0.4, Neut # (Auto) 13.4 H, Lymph # (Auto) 1.0, [place] # (Auto) 0.9, Eos # (Auto) 0.2, Baso # (Auto) 0.1, Sodium 134 L, Potassium 4.1, Chloride 92 L, Carbon Dioxide 35 H, Anion Gap 11.1, BUN 20 H, Creatinine 0.80, Estimated Creat Clear 78, Estimated GFR 70, Est GFR ( Amer) 85, Glucose 102 H, Calcium 8.7, Magnesium 1.8, Triglycerides 70, Cholesterol 126 L, LDL Cholesterol Direct 47.31 L, VLDL Cholesterol 14, HDL Cholesterol 50, Cholesterol/HDL Ratio 2.5 I & O for Labs for Last 24 Hours: Intake & Output 03/11/23 03/12/23 03/13/23 03/14/23 23:59 23:59 23:59 23:59 Intake Total 640 / 760 1770 / 1770 Output Total 1250 / 1250 4500 / 4500 300 / 300 Balance -610 / -490 -2730 / -2730 -300 / -300 Weight 101.775 kg 101.47 kg 98.747 kg Constitutional: Present no acute distress, morbidly obese, chronically ill appearing and cooperative Head: Present atraumatic and normocephalic ENT: Present normal exam Respiratory: Present prolonged expiratory phase, crackles (posterior lung jordan) and diminished air movement; Absent rhonchi or wheezes Cardiac: Present Reg Rate and Rhythm GI: Present soft and normal bowel sounds; Absent distention or tenderness Extremities: Present normal inspection, full ROM and edema (3+ to knees but improving) Skin: Present intact; Absent erythema Comment:: Stasis dermatitis of lower extremities Neuro: Present Grossly Intact, alert, awake, oriented x 3 and moves all extremities Assessment and Plan *Assessment and plan (1) Pneumonia: Status: Acute Qualifiers: Laterality: right Lung location: unspecified part of lung Pneumonia type: due to unspecified organism Qualified Code(s): J18.9 - Pneumonia, unspecified organism Category: Medical Code(s): J18.9 - Pneumonia, unspecified organism (2) Sepsis due to pneumonia: Status: Acute Category: Medical Code(s): J18.9 - Pneumonia, unspecified organism; A41.9 - Sepsis, unspecified organism (3) Acute on chronic respiratory failure with hypoxia and hypercapnia: Status: Acute Category: Medical Code(s): J96.21 - Acute and chronic respiratory failure with hypoxia; J96.22 - Acute and chronic respiratory failure with hypercapnia (4) Elevated troponin: Status: Acute Category: Medical Code(s): R79.89 - Other specified abnormal findings of blood chemistry (5) Atrial fibrillation: Status: Acute Qualifiers: Atrial fibrillation type: unspecified chronic Qualified Code(s): I48.20 - Chronic atrial fibrillation, unspecified Category: Medical Code(s): I48.91 - Unspecified atrial fibrillation (6) Diabetes mellitus, type 2: Status: Acute Qualifiers: Diabetes mellitus complication status: with other specified complication Diabetes mellitus nursing home insulin use: with long term acute care registered nurse use Qualified Code(s): E11.69 - Type 2 diabetes mellitus with other specified complication; Z79.4 - intermediate teacher (current) use of insulin Category: Medical Code(s): E11.9 - Type 2 diabetes mellitus without complications (7) HTN (hypertension): Status: Acute Qualifiers: Hypertension type: primary hypertension Qualified Code(s): I10 - Essential (primary) hypertension Category: Medical Code(s): I10 - Essential (primary) hypertension (8) Pulmonary hypertension: Status: Acute Category: Medical Code(s): I27.20 - Pulmonary hypertension, unspecified (9) HFrEF (heart failure with reduced ejection fraction): Status: Acute Category: Medical Code(s): I50.20 - Unspecified systolic (congestive) heart failure Plan Patient is a 72-year-old female who lives at senior living facility presented to hospital due to shortness of breath. Patient has past medical history of hypertension hyperlipidemia diabetes mellitus CAD atrial fibrillation on Eliquis, COPD on 3 L nasal cannula. Patient mentions she has been feeling shortness of breath for past 3 to 4 days, she also has associated bilateral lower extremity swelling. She uses 2 L nasal cannula at baseline Denied fever chills diarrhea constipation dysuria. Continues to require inpati ent management. Cardiology and pulmonology assisting with care, discussed case today. Problems addressed as follows: Acute on chronic CHF Elevated troponin likely demand ischemia Pulmonary hypertension, severe RV dilation on echo -Echo obtained with preliminary EF 40 to 45%. Has some LV dysfunction concerning for new onset. Discussed case with cardiology, recommend patient to have ischemic workup in the near future. Awaiting for improvement from her pneumonia and sepsis. If unable to perform prior to discharge, will plan for close follow-up to evaluate cardiomyopathy. - Recommend continuing aggressive diuresis with IV Lasix 80 mg twice daily, holding spironolactone due to hyperkalemia. - Potassium 4.1 today. Creatinine 0.8 and BUN 20. Repeat CBC, CMP, magnesium ordered for the morning. -Cardiology recommends initiating Jardiance 10 mg daily and Entresto 24/26 mg twice daily. Continue carvedilol twice daily -Has chronic A-fib, currently rate controlled. Continue Eliquis 5 mg twice daily Sepsis present on admission likely source right lung pneumonia Acute on chronic hypoxic respiratory failure likely secondary to CHF exacerbation, COPD exacerbation -Pulmonology consulted, discussed case this morning. Continue BiPAP while asleep or napping. Continue supplemental oxygen as needed for goal sats greater 90%. Currently on 3-4 L. -Discontinue vancomycin. Continue cefepime for total of 7 days pending blood culture and sputum culture. -Continue Trelegy 100 inhaler along with DuoNebs every 6 hours on as-needed basis. -BiPAP interrogation at senior living performed showing compliance with use for at least 4 hours every night. Pulmonology to make some additional adjustments to her pressure settings Diabetes mellitus -Insulin sliding scale with FSGS ACHS -Hold long-acting insulin tonight as her blood sugars have decreased through the day. DVT prophylaxis-on Eliquis
[2023-03-14 08:13] LABS: Lymphocytes % 5 % (10-50); Monocytes % 7 % (2-9); Neutrophils % 84 % (42-76); Total Cells Counted 100
[2023-03-14 08:16] LABS: Anisocytosis 1+; Hypochromasia 1+; Microcytosis 1+; Platelet Estimate Normal; Poikilocytosis 1+
[2023-03-14 08:17] LABS: Rouleaux 1+; Spherocytes 1+
--- NOTE | 2023-03-14 08:25 | XR_ITS ---
FINAL REPORT CLINICAL HISTORY: PNM COMPARISON: 03/12/2023 FINDINGS: SINGLE-VIEW CHEST There is cardiomegaly. The mediastinum is normal. There is mild bibasilar atelectasis or pneumonia. There is no pneumothorax. IMPRESSION: Bibasilar atelectasis or pneumonia. Reviewed, Interpreted and Dictated by Delfino Ruth III, MD Transcribed by Cass Pérez Authenticated and . [facility]
--- NOTE | 2023-03-14 09:55 | P.PN_ITS ---
Subjective *Date: 03/14/23 *Time: 13:11 Interval history: No acute respiratory events overnight. Patient denies any new respiratory complaints. Pulmonology Exam Inpatient Vital signs and Labs for Last 24 Hours: Temp Pulse Resp BP Pulse Ox O2 Del Method O2 Flow Rate 98.9 F 75 20 124/63 94 L Nasal Cannula 3 03/14/23 08:00 03/14/23 08:00 03/14/23 08:00 03/14/23 08:00 03/14/23 08:00 03/14/23 08:00 03/14/23 08:00 FiO2 40 03/12/23 22:00 Laboratory Results - last 24 hr 03/13/23 11:42: POC Glucose 134 H 03/13/23 17:32: POC Glucose 96 03/13/23 20:33: POC Glucose 132 H 03/14/23 06:02: POC Glucose 87 03/14/23 06:13: WBC 15.5 H, RBC 5.20, Hgb 13.3, Hct 42.9, MCV 82.6, MCH 25.6 L, MCHC 31.0 L, RDW 20.0 H, Plt Count 251, MPV 8.4, Neut % (Auto) 86.5 H, Lymph % (Auto) 6.4 L, [place] % (Auto) 5.8, Eos % (Auto) 1.0, Baso % (Auto) 0.4, Neut # (Auto) 13.4 H, Lymph # (Auto) 1.0, [place] # (Auto) 0.9, Eos # (Auto) 0.2, Baso # (Auto) 0.1, Total Counted 100, Neutrophils % (Manual) 84 H, Band Neutrophils % 4.0, Lymphocytes % (Manual) 5 L, Monocytes % (Manual) 7, Platelet Estimate Normal, Hypochromasia 1+, Poikilocytosis 1+, Anisocytosis 1+, Microcytosis 1+, Spherocytes 1+, Ovalocytes , Rouleaux 1+, Sodium 134 L, Potassium 4.1, Chloride 92 L, Carbon Dioxide 35 H, Anion Gap 11.1, BUN 20 H, Creatinine 0.80, Estimated Creat Clear 78, Estimated GFR 70, Est GFR ( Amer) 85, Glucose 102 H, Calcium 8.7, Magnesium 1.8, Triglycerides 70, Cholesterol 126 L, LDL Cholesterol Direct 47.31 L, VLDL Cholesterol 14, HDL Cholesterol 50, Cholesterol/HDL Ratio 2.5 I & O for Labs for Last 24 Hours: Intake & Output 03/11/23 03/12/23 03/13/23 03/14/23 23:59 23:59 23:59 23:59 Intake Total 640 / 760 1770 / 1770 240 / 240 Output Total 1250 / 1250 4500 / 4500 800 / 800 Balance -610 / -490 -2730 / -2730 -560 / -560 Weight 224 lb 6 oz 223 lb 11.249 oz 217 lb 11.2 oz Assessment and Plan *Assessment and plan (1) Acute on chronic respiratory failure with hypoxia and hypercapnia: Status: Acute Category: Medical Code(s): J96.21 - Acute and chronic respiratory failure with hypoxia; J96.22 - Acute and chronic respiratory failure with hypercapnia (2) Pneumonia: Status: Acute Qualifiers: Laterality: right Lung location: unspecified part of lung Pneumonia type: due to unspecified organism Qualified Code(s): J18.9 - Pneumonia, unspecified organism Category: Medical Code(s): J18.9 - Pneumonia, unspecified organism Plan Ms. Sena is a 72-year-old senior living resident from [place]-carries a diagnosis of COPD, chronic hypoxic respiratory failure on 3 L nasal cannula, sleep apnea admitted to the hospital in January 2023 for COPD exacerbation hypercarbic respiratory failure, discharged to the senior living on BiPAP therapy presented to the hospital worsening respiratory distress and pulmonary was called for further evaluation and management. Significant neutrophilic leukocytosis upon admission. Venous blood gas upon admission showed mild hypercarbic respiratory with a pH of 7.29 and pCO2 56.1. COVID-19 and flu PCR negative On my initial examination of the patient mentation appears disproportionate to the noted hypercarbic, will repeat ABG. CT head upon admission concerning for prior hemorrhage or infection, will defer to primary team for further evaluation and management. Chest x-ray upon admission concerning for right lower lobe airspace disease. Interval update No acute respiratory vents overnight. Chest x-ray no worsening pulmonary infiltrates. Low lung volumes. Stable oxygen requirements. Plan: -Continue nasal oxygen supplementation to maintain O2 saturation below 92% and above Discontinue vancomycin. Continue cefepime for total of 7 days pending blood culture sputum culture and nasal MRSA PCR. Continue Trelegy 100 inhaler along with DuoNebs every 6 hours on as-needed basis. # NIV compliance report from senior living reviewed, patient on auto CPAP with settings of 6-10. Residual AHI controlled at 3.7. Will change her settings to 07/19/auto CPAP. Patient also benefits from outpatient sleep clinic follow-up. # Thank you for involving pulmonary in this patient care. Will continue to follow.
[2023-03-14] MEDS: GABAPENTIN 300MG CAPSULE 300 MG PO ×2 (10:02→21:49)
[2023-03-14] MEDS: BUSPIRONE HCL 10 MG TABLET PO ×2 (10:03→21:49)
[2023-03-14] MEDS: FUROSEMIDE 40MG/4ML VIAL 80 MG IV ×2 (10:03→16:36)
[2023-03-14] MEDS: APIXABAN 5MG TABLET 5 MG PO ×2 (10:03→21:49)
[2023-03-14] MEDS: ASPIRIN 81MG CHEWABLE TABLET 81 MG PO (10:03)
[2023-03-14] MEDS: EMPAGLIFLOZIN 10MG TABLET 10 MG PO (10:04)
[2023-03-14] MEDS: HYDROCODONE/APAP 5/325 MG TABLET 1 TAB PO ×2 (10:04→21:50)
[2023-03-14] MEDS: SACUBITRIL/VALSARTAN 24-26MG TABLET 1 EACH PO ×2 (10:04→21:50)
[2023-03-14] MEDS: FERROUS SULFATE 325MG TABLET 325 MG PO (10:04)
[2023-03-14] MEDS: CARVEDILOL 3.125MG TABLET 3.125 MG PO ×2 (10:04→21:50)
[2023-03-14 13:22] LABS: Vancomycin,Trough 7.3 ug/mL (5.0-10.0)
[2023-03-14] MEDS: PHA TO NURSING INSTRUCTION 1 EACH NOTAPPLIC (13:31)
--- NOTE | 2023-03-14 13:55 | P.PN_ITS ---
Subjective Subjective Date: 03/14/23 Time: 11:00 Principal diagnosis: HFrEF, nonstemi Interval history: This is a 72-year-old female who resides at a half-way and was brought to the emergency department due to shortness of breath and lower extremity edema. The patient was found to have an acute exacerbation of HFrEF and an elevated troponin consistent with a non-STEMI. The patient is also currently being treated for pneumonia and sepsis. She does have a history of chronic atrial fibrillation on long-term anticoagulation with Eliquis. This morning she states that she is feeling much better. She states that her shortness of breath has significantly improved and she can now lay flat when she is sleeping. She denies any chest pain or pressure. She denies any fever, chills, nausea, vomiting, diarrhea, PND or orthopnea Exam Data for Last 24 hours Vital signs and Labs for Last 24 Hours: Temp Pulse Resp BP Pulse Ox O2 Del Method O2 Flow Rate 98.4 F 70 17 116/65 93 L Nasal Cannula 4 03/14/23 11:24 03/14/23 12:00 03/14/23 11:24 03/14/23 11:24 03/14/23 11:24 03/14/23 11:24 03/14/23 11:24 FiO2 40 03/12/23 22:00 Laboratory Results - last 24 hr 03/13/23 17:32: POC Glucose 96 03/13/23 20:33: POC Glucose 132 H 03/14/23 06:02: POC Glucose 87 03/14/23 06:13: WBC 15.5 H, RBC 5.20, Hgb 13.3, Hct 42.9, MCV 82.6, MCH 25.6 L, MCHC 31.0 L, RDW 20.0 H, Plt Count 251, MPV 8.4, Neut % (Auto) 86.5 H, Lymph % (Auto) 6.4 L, [place] % (Auto) 5.8, Eos % (Auto) 1.0, Baso % (Auto) 0.4, Neut # (Auto) 13.4 H, Lymph # (Auto) 1.0, [place] # (Auto) 0.9, Eos # (Auto) 0.2, Baso # (Auto) 0.1, Total Counted 100, Neutrophils % (Manual) 84 H, Band Neutrophils % 4.0, Lymphocytes % (Manual) 5 L, Monocytes % (Manual) 7, Platelet Estimate Normal, Hypochromasia 1+, Poikilocytosis 1+, Anisocytosis 1+, Microcytosis 1+, Spherocytes 1+, Ovalocytes , Rouleaux 1+, Sodium 134 L, Potassium 4.1, Chloride 92 L, Carbon Dioxide 35 H, Anion Gap 11.1, BUN 20 H, Creatinine 0.80, Estimated Creat Clear 78, Estimated GFR 70, Est GFR ( Amer) 85, Glucose 102 H, Calcium 8.7, Magnesium 1.8, Triglycerides 70, Cholesterol 126 L, LDL Cholesterol Direct 47.31 L, VLDL Cholesterol 14, HDL Cholesterol 50, Cholesterol/HDL Ratio 2.5 03/14/23 13:00: Vancomycin Trough 7.3 I & O for Last 24 hours: Intake & Output 03/11/23 03/12/23 03/13/23 03/14/23 23:59 23:59 23:59 23:59 Intake Total 640 / 760 1770 / 1770 480 / 480 Output Total 1250 / 1250 4500 / 4500 800 / 800 Balance -610 / -490 -2730 / -2730 -320 / -320 Weight 224 lb 6 oz 223 lb 11.249 oz 217 lb 11.2 oz Constitutional Constitutional: no acute distress and average body habitus *Routine HEENT Exam Head: Present normocephalic and atraumatic ENT: Present mucous membranes moist *Routine Neck Exam Neck: Present supple, full ROM and normal carotid upstroke; Absent JVD, carotid bruit or lymphadenopathy *Routine Respiratory Exam Respiratory: Present decreased breath sounds, wheezes, normal respiratory effort, able to speak in complete sentences and symmetric chest movement *Routine Cardiovascular Exam Cardiovascular: Present Normal S1, Normal S2 and irregularly irregular; Absent murmur or gallop *Routine Abdominal Exam Abdominal: Present soft and normoactive bowel sounds; Absent tenderness, distended or organomegaly *Routine Extremities Exam Extremities: Present full ROM, pulses intact and normal capillary refill; Absent cyanosis, clubbing or edema *Routine Skin Exam Skin: Present intact and warm; Absent erythema *Routine Neurological Exam Neurological: Present alert, oriented X3 and CN II-XII intact; Absent sensory deficit or motor deficit Routine Psychiatric Exam Psychiatric: Present normal affect Progress Note: A&P Assessment and plan (1) HFrEF (heart failure with reduced ejection fraction): Status: Acute (2) Atrial fibrillation: Status: Acute (3) Acute on chronic respiratory failure with hypoxia and hypercapnia: Status: Acute (4) Pneumonia: Status: Acute (5) Right ventricular dilation: Status: Acute (6) Diabetes mellitus, type 2: Status: Acute (7) HLD (hyperlipidemia): Status: Acute (8) HTN (hypertension): Status: Acute (9) Pulmonary hypertension: Status: Acute (10) Coronary artery disease: Status: Acute (11) Chronic hypoxemic respiratory failure: Status: Acute Assessment and Plan Assessment and Plan for All Diagnoses:: Plan: 1. The patient was admitted to the hospital with pneumonia and sepsis. She is currently on IV antibiotics and high flow oxygen. Pulmonology has been consulted. 2. Preliminary echo shows an ejection fraction of 40 to 45%. She does have some LV dysfunction which is most likely new onset. 3. She does have elevated troponin consistent with a non-STEMI. Her troponin max 0.19. The patient will need an ischemic evaluation with left cardiac catheterization during this hospitalization due to her non-STEMI and new onset cardiomyopathy. However we would like for her to be a little more recovered from her pneumonia and sepsis. Will consider proceeding with left cardiac catheterization tomorrow depending on the patient's symptoms. 4. Will continue to aggressively diurese the patient with IV Lasix. She has a -3 L fluid balance. Continue IV Lasix. 5. Continue Jardiance, Entresto and carvedilol for HFrEF. 6. Her echocardiogram also shows severe RV dilatation. She most likely has severe pulmonary hypertension. Pulmonology has already been consulted because w e do suspect that this may be from underlying lung disease. 7. Her blood pressure is well-controlled. 8. Her LDL goal is less than 55. Her LDL is 47. She is on a statin. 9. The patient does have chronic atrial fibrillation. She is currently rate controlled. She is on Eliquis for long-term anticoagulation. She denies any bleeding. 10. The patient is diabetic. She will need aggressive control of her diabetes. Will defer this to the hospitalist. 11. Further recommendations will be made pending the patient's response to treatment. Thank you for the opportunity to help participate in the care of this patient. All recommendations and orders are per Dr. Hitchcock.
[2023-03-14] MEDS: VANCOMYCIN/WATER FOR INJ (PEG) 1.25 GM/250 ML PIGGYBACK IV (14:27)
[2023-03-14 15:05] LABS: POC Glucose,Bedside 110 (70-110)
[2023-03-14 16:53] LABS: POC Glucose,Bedside 62 (70-110)
[2023-03-14 17:50] LABS: POC Glucose,Bedside 66 (70-110)
[2023-03-14 17:50] LABS: POC Glucose,Bedside 62 (70-110)
[2023-03-14 17:50] LABS: POC Glucose,Bedside 66 (70-110)
--- NOTE | 2023-03-14 18:01 | PC.NURSE ---
Patient a&ox4 and has had 1 complaint of pain that was helped with norco. Patient continuing to diurese and having good uop.
[2023-03-14 18:58] LABS: POC Glucose,Bedside 169 (70-110)
[2023-03-14 19:21] LABS: Vancomycin,Peak 20.9 ug/ml (11-39)
[2023-03-14] MEDS: PANTOPRAZOLE 40MG TABLET 40 MG PO (21:49)
[2023-03-14] MEDS: PARoxetine 20MG TABLET 40 MG PO (21:50)
[2023-03-14] MEDS: TRAZODONE 50MG TABLET 50 MG PO (21:50)
[2023-03-14] MEDS: AMITRIPTYLINE 25MG TABLET 25 MG PO (21:51)
[2023-03-14] MEDS: ATORVASTATIN 40MG TABLET 40 MG PO (21:51)
--- NOTE | 2023-03-14 22:29 | PC.NURSE ---
RESPIRATORY NOTE: PATIENT REFUSED BIPAP.
[2023-03-15] VITALS (21 sets, daily range): BP systolic 86–134; BP diastolic 41–75; PULSE 63–90; RESP 16–20; TEMP 36.6–37.3; O2SAT 87–100; BMI 36.8
[2023-03-15] MEDS: CEFEPIME HCL 2 GM in 0.9 % SODIUM CHLORIDE 100 ML IV ×2 (05:00→17:25)
[2023-03-15] MEDS: FLUTICASONE/UMECLIDIN/VILANTER 100/62.5/25MCG INHALER 1 PUFF IH (06:32)
[2023-03-15 07:17] LABS: Basophils % 0.1 % (0.1-2.0); Eosinophils # 0.2 K/mm3 (0.0-0.4); Eosinophils % 1.3 % (0.1-12.0); Hematocrit 44.8 % (37.0-47.0); Hemoglobin 13.6 g/dL (12.2-16.2); Lymphocytes # 1.2 K/mm3 (0.7-4.5); Lymphocytes % 10.4 % (10-50); Mean Corpuscular HGB Conc 30.3 g/dL (31.8-35.4); Mean Corpuscular Hemoglobin 24.5 pg (27.0-31.2); Mean Corpuscular Volume 80.9 fl (81-99); Mean Platelet Volume 8.4 fl (7.4-10.4); Monocytes # 1.1 K/mm3 (0.1-1.0); Neutrophils # 9.3 K/mm3 (1.8-7.8); Neutrophils % 79.3 % (37.0-80.0); Platelet Count 275 K/mm3 (142-424); Red Blood Count 5.54 M/mm3 (4.20-5.40); White Blood Count 11.8 K/mm3 (4.8-10.8)
[2023-03-15 07:21] LABS: Chloride 88 mmol/L (98-107); Potassium 4.2 mmoL/L (3.5-5.1); Sodium 130 mmol/L (136-145)
[2023-03-15 07:24] LABS: Alanine Aminotransferase 21 U/L (12-78); Albumin Level 3.4 g/dl (3.5-5.0); Albumin/Globulin Ratio 1.1 (1.1-1.8); Alkaline Phosphatase 74 U/L (38-126); Aspartate Amino Transferase 32 U/L (14-36); Bilirubin,Total 0.5 mg/dl (0.2-1.3); Blood Urea Nitrogen 25 mg/dl (7-17); Calcium 8.7 mg/dl (8.4-10.2); Creatinine Clearance Estimated 77 mL/min (50-200); Estimated Glomerular Filt Rate 70 ml/min (>60); GFR (African American) 85 ML/MIN (>60); Globulin 3.2 g/dL (1.3-3.2); Glucose 126 mg/dl (74-100); Magnesium 1.8 mg/dl (1.6-2.3); Total Protein,Serum 6.6 g/dl (6.3-8.2)
[2023-03-15 08:14] LABS: Anion Gap 8.2 mEq/L (5-15); Carbon Dioxide 38 mmol/L (22.0-30.0)
--- NOTE | 2023-03-15 08:15 | EXP.DC.SUM ---
General Admission date:: 03/12/23 Discharge date: 03/15/23 HPI HPI HPI: Patient is a 72-year-old female who lives at alf facility presented to hospital due to shortness of breath. Patient has past medical history of hypertension hyperlipidemia diabetes mellitus CAD atrial fibrillation on Eliquis, COPD on 3 L nasal cannula. Patient mentions she has been feeling shortness of breath for past 3 to 4 days, she also has associated bilateral lower extremity swelling. She uses 2 L nasal cannula at baseline Denied fever chills diarrhea constipation dysuria. Hospital Course Hospital Course Hospital Course: Patient is a 72-year-old female who lives at alf facility presented to hospital due to shortness of breath. Patient has past medical history of hypertension hyperlipidemia diabetes mellitus CAD atrial fibrillation on Eliquis, COPD on 3 L nasal cannula. Patient mentions she has been feeling shortness of breath for past 3 to 4 days, she also has associated bilateral lower extremity swelling. Patient admitted for respiratory failure. Cardiology and pulmonology were consulted and assisted with care. Treated pneumonia and sepsis with antibiotics. Acute on chronic CHF evaluated, taken for heart cath. Clinically stable for discharge back to alf at this time. Problems addressed as follows: Acute on chronic CHF Elevated troponin likely demand ischemia Pulmonary hypertension, severe RV dilation on echo -Echo obtained with preliminary EF 40 to 45%. Has some LV dysfunction concerning for new onset. Cardiology consulted during admission. Ischemic workup was recommended. Taken for left heart cath on 03/15 with placement of 2 stents. Patient had good results and improved coronary artery blood flow. Will continue dual antiplatelet therapy with aspirin and Plavix. Recommend continuing diuresis daily with Bumex 2 mg p.o. twice daily. Hold spironolactone at this time due to normal potassium. Recommend repeat labs in 1 week to monitor potassium and creatinine. If potassium dropping below 3.4, would resume spironolactone daily. Continue with Jardiance, Entresto, carvedilol for heart failure. Given her chronic A-fib, continue Eliquis twice daily. Discontinue aspirin after 1 month of triple therapy and continue just Eliquis and Plavix at that time. Will continue pantoprazole for GI prophylaxis in the setting of triple therapy antiplatelet/blood thinner. Follow-up with cardiology as an outpatient. Sepsis present on admission likely source right lung pneumonia Acute on chronic hypoxic respiratory failure likely secondary to CHF exacerbation, COPD exacerbation -Pulmonology consulted, assisting with care. Continued BiPAP while sleeping however patient poorly tolerant due to device being louder than her home device and causing headache. Recommend continuing with noninvasive positive pressure ventilation. Per her compliance report, patient on auto CPAP with settings of 6-10. Residual AHI controlled at 3.7. Pulmonology recommends increasing her auto CPAP settings to 6-14. Patient would also benefit from outpatient sleep clinic follow-up. Continue supplemental oxygen as needed for goal sats greater 90%. Has been on 2 to 4 L during admission. Continue with for and wean as tolerated in the alf setting. -Patient currently has midline in place. Continue cefepime for total of 7 days. Is receiving 2 g twice daily, will require dose on the evening of returning back to alf. Last dose due evening of 03/18/2023. Okay to remove midline after final dose of antibiotics. Diabetes mellitus -Patient's most recent A1c in January was normal at 5.7. Recommend continuing Jardiance for heart failure and diabetes. Would hold on any insulin at this time unless starts having elevated blood sugars above 200 consistently. Discontinued long-acting insulin due to hypoglycemia. Spent 30 minutes in discharge counseling, documentation, chart review, and direct care with patient. Exam Data for Last 24 hours Vital signs and Labs for Last 24 Hours: Temp Pulse Resp BP Pulse Ox O2 Del Method O2 Flow Rate 98.8 F 83 18 118/71 90 L Nasal Cannula 4 03/15/23 04:00 03/15/23 04:00 03/15/23 04:00 03/15/23 04:00 03/15/23 04:00 03/15/23 05:00 03/15/23 05:00 FiO2 40 03/12/23 22:00 Laboratory Results - last 24 hr 03/14/23 06:13: Total Counted 100, Neutrophils % (Manual) 84 H, Band Neutrophils % 4.0, Lymphocytes % (Manual) 5 L, Monocytes % (Manual) 7, Platelet Estimate Normal, Hypochromasia 1+, Poikilocytosis 1+, Anisocytosis 1+, Microcytosis 1+, Spherocytes 1+, Ovalocytes , Rouleaux 1+ 03/14/23 11:15: POC Glucose 110 03/14/23 13:00: Vancomycin Trough 7.3 03/14/23 16:38: POC Glucose 62 L 03/14/23 16:55: POC Glucose 66 L 03/14/23 17:05: POC Glucose 62 L 03/14/23 17:41: POC Glucose 66 L 03/14/23 18:40: Vancomycin Peak 20.9 03/14/23 18:48: POC Glucose 169 H 03/15/23 06:18: WBC 11.8 H, RBC 5.54 H, Hgb 13.6, Hct 44.8, MCV 80.9 L, MCH 24.5 L, MCHC 30.3 L, RDW 19.0 H, Plt Count 275, MPV 8.4, Neut % (Auto) 79.3, Lymph % (Auto) 10.4, [place] % (Auto) 9.0, Eos % (Auto) 1.3, Baso % (Auto) 0.1, Neut # (Auto) 9.3 H, Lymph # (Auto) 1.2, [place] # (Auto) 1.1 H, Eos # (Auto) 0.2, Baso # (Auto) 0.0, Sodium 130 L, Potassium 4.2, Chloride 88 L, BUN 25 H, Creatinine 0.80, Estimated Creat Clear 77, Estimated GFR 70, Est GFR ( Amer) 85, Glucose 126 H, Calcium 8.7, Magnesium 1.8, Total Bilirubin 0.5, AST 32 D, ALT 21, Alkaline Phosphatase 74, Total Protein 6.6, Albumin 3.4 L, Globulin 3.2, Albumin/Globulin Ratio 1.1 I & O for Last 24 hours: Intake & Output 03/12/23 03/13/23 03/14/23 03/15/23 23:59 23:59 23:59 23:59 Intake Total 640 / 760 1770 / 1770 720 / 960 240 / 240 Output Total 1250 / 1250 4500 / 4500 2150 / 4050 2100 / 2100 Balance -610 / -490 -2730 / -2730 -1430 / -3090 -1860 / -1860 Weight 101.775 kg 101.47 kg 98.747 kg 97.976 kg Microbiology Reports for the Last 24 Hours: Microbiology 03/12/23 16:30 Nose MRSA Culture - Final 03/12/23 11:30 Blood Blood Culture - Preliminary 03/12/23 11:15 Blood Blood Culture - Preliminary Constitutional Constitutional: no acute distress, obese, chronically ill appearing and cooperative *Routine HEENT Exam Head: Present normocephalic Eye: Present EOMI and PERRL ENT: Present mucous membranes moist *Routine Neck Exam Neck: Present supple; Absent lymphadenopathy *Routine Respiratory Exam Respiratory: Present prolonged expiratory phase and crackles; Absent rhonchi or wheezes *Routine Cardiovascular Exam Cardiovascular: Present RRR *Routine Abdominal Exam Abdominal: Present soft and normoactive bowel sounds; Absent tenderness *Routine Rectal Exam Patient deferred: visual exam *Routine Exam Patient deferred: external exam *Routine Extremities Exam Extremities: Present edema (3+ to knees); Absent cyanosis or clubbing Comments: midline in left upper extremity *Routine Skin Exam Skin: Present warm; Absent rash *Routine Neurological Exam Neurological: Present alert, oriented X3 and moving all extremities; Absent altered mental status Results Data Completed and Pending Labs on day of discharge: Labs from last 24 hours 03/15/23 03/14/23 03/14/23 06:18 18:48 18:40 WBC 11.8 H RBC 5.54 H Hgb 13.6 Hct 44.8 MCV 80.9 L MCH 24.5 L MCHC 30.3 L RDW 19.0 H Plt Count 275 MPV 8.4 Neut % (Auto) 79.3 Lymph % (Auto) 10.4 [place] % (Auto) 9.0 Eos % (Auto) 1.3 Baso % (Auto) 0.1 Neut # (Auto) 9.3 H Lymph # (Auto) 1.2 [place] # (Auto) 1.1 H Eos # (Auto) 0.2 Baso # (Auto) 0.0 Total Counted Neutrophils % (Manual) Band Neutrophils % Lymphocytes % (Manual) Monocytes % (Manual) Platelet Estimate Hypochromasia Poikilocytosis Anisocytosis Microcytosis Spherocytes Ovalocytes Rouleaux Sodium 130 L Potassium 4.2 Chloride 88 L BUN 25 H Creatinine 0.80 Estimated Creat Clear 77 Estimated GFR 70 Est GFR ( Amer) 85 Glucose 126 H POC Glucose 169 H Calcium 8.7 Magnesium 1.8 Total Bilirubin 0.5 AST 32 D ALT 21 Alkaline Phosphatase 74 Total Protein 6.6 Albumin 3.4 L Globulin 3.2 Albumin/Globulin Ratio 1.1 Vancomycin Peak 20.9 Vancomycin Trough 03/14/23 03/14/23 03/14/23 17:41 17:05 16:55 WBC RBC Hgb Hct MCV MCH MCHC RDW Plt Count MPV Neut % (Auto) Lymph % (Auto) [place] % (Auto) Eos % (Auto) Baso % (Auto) Neut # (Auto) Lymph # (Auto) [place] # (Auto) Eos # (Auto) Baso # (Auto) Total Counted Neutrophils % (Manual) Band Neutrophils % Lymphocytes % (Manual) Monocytes % (Manual) Platelet Estimate Hypochromasia Poikilocytosis Anisocytosis Microcytosis Spherocytes Ovalocytes Rouleaux Sodium Potassium Chloride BUN Creatinine Estimated Creat Clear Estimated GFR Est GFR ( Amer) Glucose POC Glucose 66 L 62 L 66 L Calcium Magnesium Total Bilirubin AST ALT Alkaline Phosphatase Total Protein Albumin Globulin Albumin/Globulin Ratio Vancomycin Peak Vancomycin Trough 03/14/23 03/14/23 03/14/23 16:38 13:00 11:15 WBC RBC Hgb Hct MCV MCH MCHC RDW Plt Count MPV Neut % (Auto) Lymph % (Auto) [place] % (Auto) Eos % (Auto) Baso % (Auto) Neut # (Auto) Lymph # (Auto) [place] # (Auto) Eos # (Auto) Baso # (Auto) Total Counted Neutrophils % (Manual) Band Neutrophils % Lymphocytes % (Manual) Monocytes % (Manual) Platelet Estimate Hypochromasia Poikilocytosis Anisocytosis Microcytosis Spherocytes Ovalocytes Rouleaux Sodium Potassium Chloride BUN Creatinine Estimated Creat Clear Estimated GFR Est GFR ( Amer) Glucose POC Glucose 62 L 110 Calcium Magnesium Total Bilirubin AST ALT Alkaline Phosphatase Total Protein Albumin Globulin Albumin/Globulin Ratio Vancomycin Peak Vancomycin Trough 7.3 03/14/23 06:13 WBC RBC Hgb Hct MCV MCH MCHC RDW Plt Count MPV Neut % (Auto) Lymph % (Auto) [place] % (Auto) Eos % (Auto) Baso % (Auto) Neut # (Auto) Lymph # (Auto) [place] # (Auto) Eos # (Auto) Baso # (Auto) Total Counted 100 Neutrophils % (Manual) 84 H Band Neutrophils % 4.0 Lymphocytes % (Manual) 5 L Monocytes % (Manual) 7 Platelet Estimate Normal Hypochromasia 1+ Poikilocytosis 1+ Anisocytosis 1+ Microcytosis 1+ Spherocytes 1+ Ovalocytes Rouleaux 1+ Sodium Potassium Chloride BUN Creatinine Estimated Creat Clear Estimated GFR Est GFR ( Amer) Glucose POC Glucose Calcium Magnesium Total Bilirubin AST ALT Alkaline Phosphatase Total Protein Albumin Globulin Albumin/Globulin Ratio Vancomycin Peak Vancomycin Trough Preliminary micro results at discharge 03/12/23 11:30 Blood Culture - Preliminary Blood 03/12/23 11:15 Blood Culture - Preliminary Blood DS: Diagnosis Discharge Diagnosis (1) Pneumonia: Status: Acute Code(s): J18.9 - Pneumonia, unspecified organism Qualifiers: Laterality: right Lung location: unspecified part of lung Pneumonia type: due to unspecified organism Qualified Code(s): J18.9 - Pneumonia, unspecified organism (2) Sepsis due to pneumonia: Status: Acute Code(s): J18.9 - Pneumonia, unspecified organism; A41.9 - Sepsis, unspecified organism (3) Acute on chronic respiratory failure with hypoxia and hypercapnia: Status: Acute Code(s): J96.21 - Acute and chronic respiratory failure with hypoxia; J96.22 - Acute and chronic respiratory failure with hypercapnia (4) Elevated troponin: Status: Acute Code(s): R79.89 - Other specified abnormal findings of blood chemistry (5) Atrial fibrillation: Status: Acute Code(s): I48.91 - Unspecified atrial fibrillation Qualifiers: Atrial fibrillation type: unspecified chronic Qualified Code(s): I48.20 - Chronic atrial fibrillation, unspecified (6) Diabetes mellitus, type 2: Status: Acute Code(s): E11.9 - Type 2 diabetes mellitus without complications Qualifiers: Diabetes mellitus complication status: with other specified complication Diabetes mellitus detention insulin use: with detention use Qualified Code(s): E11.69 - Type 2 diabetes mellitus with other specified complication; Z79.4 - USP (current) use of insulin (7) HTN (hypertension): Status: Acute Code(s): I10 - Essential (primary) hypertension Qualifiers: Hypertension type: primary hypertension Qualified Code(s): I10 - Essential (primary) hypertension (8) Pulmonary hypertension: Status: Acute Code(s): I27.20 - Pulmonary hypertension, unspecified (9) HFrEF (heart failure with reduced ejection fraction): Status: Acute Code(s): I50.20 - Unspecified systolic (congestive) heart failure Meds Home Medications and Allergies Home Medications Medication Instructions Recorded Confirmed Type ergocalciferol (vitamin D2) 1,250 1,250 mcg PO MO Supplement 08/12/20 03/12/23 History mcg (50,000 unit) capsule rosuvastatin 10 mg tablet 10 mg PO HS Cholesterol 08/12/20 03/12/23 History tiotropium bromide 2.5 1 puff inhalation DAILY Copd 08/12/20 03/12/23 History mcg/actuation mist for inhalation (Spiriva Respimat) acetaminophen 500 mg tablet 1,000 mg PO Q6HP PRN Mild Pain 12/18/22 03/12/23 History (Tylenol Extra Strength) (Scale Score 1-4) albuterol sulfate 90 mcg/actuation 2 puff inhalation Q4HP PRN 12/18/22 03/12/23 History aerosol inhaler shortness of air or wheezing related to copd amitriptyline 25 mg tablet 25 mg PO HS mood 12/18/22 03/12/23 History apixaban 5 mg tablet (Eliquis) 5 mg PO BID Blood Thinner/DVT 12/18/22 03/12/23 History Prophylaxis aspirin 81 mg capsule 81 mg PO DAILY Heart Health 12/18/22 03/12/23 History budesonide-formoterol HFA 160 2 puff inhalation BIDRT Breathing 12/18/22 03/13/23 History mcg-4.5 mcg/actuation aerosol Problems inhaler (Symbicort) buspirone 10 mg tablet 10 mg PO BID Anxiety 12/18/22 03/12/23 History carvedilol 3.125 mg tablet 3.125 mg PO BID High Blood Pressure 12/18/22 03/12/23 History docusate sodium 100 mg tablet 100 mg PO BID Constipation 12/18/22 03/12/23 History ferrous sulfate 324 mg (65 mg 324 mg PO DAILY anemia 12/18/22 03/12/23 History iron) tablet,delayed release icosapent ethyl 1 gram capsule 1 g PO BID Hyperlipidemia 12/18/22 03/12/23 History (Vascepa) insulin lispro 100 unit/mL 0 sliding scale dose SQ ACHS 12/18/22 03/12/23 History subcutaneous pen Diabetes multivitamin 1 tab PO DAILY Supplement 12/18/22 03/12/23 History nitroglycerin 0.4 mg sublingual 0.4 mg sublingual Q5MINP PRN Chest 12/18/22 03/12/23 History tablet Pain omeprazole 40 mg capsule,delayed 40 mg PO HS Acid Reflux 12/18/22 03/12/23 History release polyethylene glycol 3350 17 gram 17 g PO DAILY Constipation 12/18/22 03/12/23 History oral powder packet (Miralax) trazodone 50 mg tablet 50 mg PO HS Insomnia 12/18/22 03/12/23 History acetaminophen 500 mg tablet 500 mg PO AC Pain 12/19/22 03/12/23 History albuterol sulfate 2.5 mg/3 mL 2.5 mg inhalation Q4HP PRN 12/19/22 03/12/23 History (0.083 %) solution for nebulization shortness of air or wheezing gabapentin 300 mg capsule 300 mg PO BID Pain 12/19/22 03/12/23 History paroxetine HCl 40 mg tablet 40 mg PO HS mood 12/19/22 03/12/23 History hydrocodone 5 mg-acetaminophen 325 1 tab PO Q12HP PRN Moderate Pain 01/12/23 03/13/23 History mg tablet (Scale Score 5-6) oxymetazoline 0.05 % nasal spray 2 spray intranasal Q12HP PRN Nasal 01/12/23 03/12/23 History (Afrin Sinus (oxymetazoline)) Congestion spironolactone 50 mg tablet 50 mg PO DAILY Fluid 03/12/23 03/12/23 History (Aldactone) bumetanide 1 mg tablet 2 mg PO BIDL Fluid 30 days #0 tabs 03/15/23 03/13/23 Rx empagliflozin 10 mg tablet 10 mg PO DAILY #0 tabs 03/15/23 Rx (Jardiance) fluticasone fur. 100 mcg-umeclid 1 inh inhalation DAILY #0 ea 03/15/23 Rx 62.5 mcg-vilant 25 mcg inhalat.powder (Trelegy Ellipta) sacubitril 24 mg-valsartan 26 mg 30 tab PO BID 30 days #0 tabs 03/15/23 Rx tablet (Entresto) cefepime 2 gram solution for 2 g IV Q12H 3 days 03/16/23 Rx injection clopidogrel 75 mg tablet 75 mg PO DAILY 30 days #30 tabs 03/16/23 Rx New Prescriptions to Start Prescriptions: Lamin Matias Allergies Allergy/AdvReac Type Severity Reaction Status Date / Time cephalexin Allergy Verified 03/12/23 10:36 Penicillins Allergy Verified 03/12/23 10:36 Discharge Plan Disposition Patient Disposition: er Intermediate Care Fac Condition: Fair Discharge Order Discharge Orders: Discharge Order (Routine); Ordered 03/16/23 Ordered By: Laimn Hemphill Follow up Plan Follow up with: Isha Paredes MD [Physician] - Enter time for follow up Ziggy Hitchcock MD [Staff Physician] - 03/21/23 3:00 pm Prescriptions/Medication Reconciliation: New Jardiance 10 mg Tablet 10 mg PO DAILY Qty: 0 0RF Trelegy Ellipta 100-62.5-25 mcg Blister With Device 1 inh inhalation DAILY Qty: 0 0RF Entresto 24-26 mg Tablet 30 tab PO BID 30 Days Qty: 0 0RF clopidogrel 75 mg Tablet 75 mg PO DAILY 30 Days Qty: 30 0RF cefepime 2 gram recon soln 2 g IV Q12H 3 Days Rx Instructions: First dose due evening of 03/16/2023, last dose 2 evening of 03/18/2023. Continued ergocalciferol (vitamin D2) 1,250 mcg (50,000 unit) capsule 1,250 mcg PO MO Patient Comments: TAKE 1 CAPSULE BY MOUTH EVERY TWO WEEKS (TWICE A MONTH) Spiriva Respimat 2.5 mcg/actuation mist 1 puff INHALATION DAILY rosuvastatin 10 mg tablet 10 mg PO HS albuterol sulfate 90 mcg/actuation HFA aerosol inhaler 2 puff INHALATION Q4HP PRN (Reason: shortness of air or wheezing related to copd) carvedilol 3.125 mg tablet 3.125 mg PO BID budesonide-formoterol [Symbicort] 160-4.5 mcg/actuation HFA aerosol inhaler 2 puff INHALATION BIDRT multivitamin Tablet 1 tab PO DAILY trazodone 50 mg tablet 50 mg PO HS polyethylene glycol 3350 [Miralax] 17 gram Powder In Packet 17 g PO DAILY omeprazole 40 mg Capsule,Delayed Release(Dr/Ec) 40 mg PO HS icosapent ethyl [Vascepa] 1 gram Capsule 1 g PO BID amitriptyline 25 mg Tablet 25 mg PO HS buspirone 10 mg Tablet 10 mg PO BID docusate sodium 100 mg Tablet 100 mg PO BID ferrous sulfate 324 mg (65 mg iron) Tablet,Delayed Release (Dr/Ec) 324 mg PO DAILY Eliquis 5 mg Tablet 5 mg PO BID aspirin 81 mg Capsule 81 mg PO DAILY acetaminophen [Tylenol Extra Strength] 500 mg Tablet 1,000 mg PO Q6HP PRN (Reason: Mild Pain (Scale Score 1-4)) nitroglycerin 0.4 mg Tablet, Sublingual 0.4 mg SUBLINGUAL Q5MINP PRN (Reason: Chest Pain) Rx Instructions: do not exceed 3 doses per episode insulin lispro 100 unit/mL Insulin Pen 0 sliding scale dose SQ ACHS Rx Instructions: 101-150 3 UNITS 151-200 4 UNITS 201-250 6 UNITS 251-300 9 UNITS 301-350 12 UNITS 351-400 15 UNITS albuterol sulfate 2.5 mg /3 mL (0.083 %) Solution For Nebulization 2.5 mg inhalation Q4HP PRN (Reason: shortness of air or wheezing) acetaminophen 500 mg Tablet 500 mg PO AC gabapentin 300 mg Capsule 300 mg PO BID paroxetine HCl 40 mg Tablet 40 mg PO HS oxymetazoline [Afrin Sinus (oxymetazoline)] 0.05 % [place],Non-Aerosol 2 spray INTRANASAL Q12HP PRN (Reason: Nasal Congestion) hydrocodone-acetaminophen 5-325 mg tablet 1 tab PO Q12HP PRN (Reason: Moderate Pain (Scale Score 5-6)) spironolactone [Aldactone] 50 mg Tablet 50 mg PO DAILY Changed bumetanide 1 mg tablet 2 mg PO BIDL 30 Days Qty: 0 0RF Rx Instructions: 1 mg orally 0800, 1400 daily Discontinued insulin glargine 100 unit/mL (3 mL) Insulin Pen 20 unit SQ HS 30 Days Qty: 0 0RF Problem Reconciliation Problems Reviewed?: Yes Patient Discharge Instructions ACTIVITY: Continue current activity DIET: continue same diet Patient Instructions: DI for Heart Failure, DI for Pneumonia -- Adult, DI for Atrial Fibrillation, Peripherally Inserted Central Catheter Infections, DI for Sepsis -- Adult Providers Primary Care Provider: Provider,Referral Admit Provider: Margy Quijano Attending Provider: Margy Quijano
[2023-03-15] MEDS: SACUBITRIL/VALSARTAN 24-26MG TABLET 1 EACH PO ×2 (09:24→21:40)
[2023-03-15] MEDS: CARVEDILOL 3.125MG TABLET 3.125 MG PO ×2 (09:25→21:40)
[2023-03-15] MEDS: HYDROCODONE/APAP 5/325 MG TABLET 1 TAB PO ×2 (09:25→22:43)
[2023-03-15] MEDS: FUROSEMIDE 40MG/4ML VIAL 80 MG IV ×2 (09:25→17:25)
[2023-03-15] MEDS: BUSPIRONE HCL 10 MG TABLET PO ×2 (09:25→21:42)
[2023-03-15] MEDS: FERROUS SULFATE 325MG TABLET 325 MG PO (09:25)
[2023-03-15] MEDS: EMPAGLIFLOZIN 10MG TABLET 10 MG PO (09:25)
[2023-03-15] MEDS: ASPIRIN 81MG CHEWABLE TABLET 81 MG PO (09:25)
[2023-03-15] MEDS: GABAPENTIN 300MG CAPSULE 300 MG PO ×2 (09:25→21:40)
[2023-03-15] MEDS: APIXABAN 5MG TABLET 5 MG PO ×2 (09:25→21:41)
--- NOTE | 2023-03-15 09:26 | P.PN_ITS ---
Subjective *Date: 03/15/23 *Time: 09:26 Medical Exam Vital signs and Labs for Last 24 Hours: Vital Signs Temp Pulse Pulse Resp BP Pulse Ox O2 Del Method 03/15/23 08:00 98.3 F 83 20 105/61 L 90 L Nasal Cannula 03/15/23 05:00 Nasal Cannula 03/15/23 03:00 Nasal Cannula 03/15/23 01:00 Nasal Cannula 03/15/23 00:00 Nasal Cannula 03/14/23 20:00 Nasal Cannula 03/14/23 23:00 Nasal Cannula 03/14/23 21:00 Nasal Cannula 03/15/23 04:00 98.8 F 83 18 118/71 90 L Nasal Cannula 03/15/23 00:00 98.4 F 82 16 96/57 L 91 L 03/14/23 20:00 98.5 F 98 H 18 112/70 90 L Nasal Cannula 03/14/23 16:00 98.5 F 74 18 116/66 92 L Nasal Cannula 03/14/23 12:00 70 03/14/23 11:24 98.4 F 88 17 116/65 93 L Nasal Cannula O2 Flow Rate 03/15/23 08:00 03/15/23 05:00 4 03/15/23 03:00 4 03/15/23 01:00 4 03/15/23 00:00 4 03/14/23 20:00 4 03/14/23 23:00 4 03/14/23 21:00 4 03/15/23 04:00 03/15/23 00:00 03/14/23 20:00 03/14/23 16:00 4 03/14/23 12:00 03/14/23 11:24 4 Intake and Output 03/14/23 03/15/23 03/15/23 23:59 07:59 15:59 Intake Total 240 / 960 240 / 510 270 / 510 Output Total 1350 / 4050 2099 / 2100 2099 Balance -1110 / -3090 -1860 / -1590 270 / -1590 Intake: Intake, Oral Amount 240 / 960 240 / 510 270 / 510 Output: Output, Urine Amount 1350 / 4050 2099 / 2100 0 2099 Other: Number of Voids 0 Number of Unmeasured Voids 0 0 Weight 97.976 kg Patient Weight 02/08/24 23:59 Weight 97.976 kg Laboratory Results - last 24 hr 03/14/23 11:15: POC Glucose 110 03/14/23 13:00: Vancomycin Trough 7.3 03/14/23 16:38: POC Glucose 62 L 03/14/23 16:55: POC Glucose 66 L 03/14/23 17:05: POC Glucose 62 L 03/14/23 17:41: POC Glucose 66 L 03/14/23 18:40: Vancomycin Peak 20.9 03/14/23 18:48: POC Glucose 169 H 03/15/23 06:18: WBC 11.8 H, RBC 5.54 H, Hgb 13.6, Hct 44.8, MCV 80.9 L, MCH 24.5 L, MCHC 30.3 L, RDW 19.0 H, Plt Count 275, MPV 8.4, Neut % (Auto) 79.3, Lymph % (Auto) 10.4, [place] % (Auto) 9.0, Eos % (Auto) 1.3, Baso % (Auto) 0.1, Neut # (Auto) 9.3 H, Lymph # (Auto) 1.2, [place] # (Auto) 1.1 H, Eos # (Auto) 0.2, Baso # (Auto) 0.0, Sodium 130 L, Potassium 4.2, Chloride 88 L, Carbon Dioxide 38 H, Anion Gap 8.2, BUN 25 H, Creatinine 0.80, Estimated Creat Clear 77, Estimated GFR 70, Est GFR ( Amer) 85, Glucose 126 H, Calcium 8.7, Magnesium 1.8, Total Bilirubin 0.5, AST 32 D, ALT 21, Alkaline Phosphatase 74, Total Protein 6.6, Albumin 3.4 L, Globulin 3.2, Albumin/Globulin Ratio 1.1 I & O for Labs for Last 24 Hours: Intake & Output 03/12/23 03/13/23 03/14/23 03/15/23 23:59 23:59 23:59 23:59 Intake Total 640 / 760 1770 / 1770 720 / 960 510 / 510 Output Total 1250 / 1250 4500 / 4500 2150 / 4050 2100 / 2100 Balance -610 / -490 -2730 / -2730 -1430 / -3090 -1590 / -1590 Weight 101.775 kg 101.47 kg 98.747 kg 97.976 kg Microbiology Reports for the Last 24 Hours: Microbiology 03/12/23 16:30 Nose MRSA Culture - Final 03/12/23 11:30 Blood Blood Culture - Preliminary 03/12/23 11:15 Blood Blood Culture - Preliminary The patient's infection will respond to the chosen ABx?: Yes Is the patient receiving the right drug, dose, and route?: Yes Could a more targeted ABx be ordered?: No (BLOOD CX NG AFTER 24 HOURS)
--- NOTE | 2023-03-15 09:39 | IR_ITS ---
APPROVED REPORT Patient Location: Inpatient PROCEDURES Left heart catheterization Left ventriculogram Selective coronary angiogram Drug-eluting stent deployment to the proximal LAD Drug-eluting stent deployment to the ostial dominant right coronary INDICATION Acute non-ST elevation myocardial infarction, Coronary artery disease Informed consent was obtained prior to the procedure. COMPLICATIONS NONE Estimated Blood Loss: LESS THAN 10 ML TECHNIQUE One percent lidocaine used to anesthetize the right anterior aspect of the wrist. The right radial artery was accessed via the Seldinger technique. A 6 Kinyarwanda sheath was placed in the right radial artery. 2.5 mg of Verapamil, 800 mcg of nitroglycerin, 1mg Lidocaine and 5000 U Heparin were given through the arterial sheath. The papa catheter was also used to perform selective coronary angiogram. At the end of the diagnostic angiogram therapeutic heparin was administered given therapeutic ACT and the guide catheter was placed in the left main artery followed by wire placed down the LAD. A 3 mm x 12 mm balloon was deployed at 20 gutierrez to predilate. Following this a 3.5 x 12 mm Pool frontier stent was placed in the proximal LAD and deployed at 24 gutierrez reducing the critical stenosis to 0%. WENDY-3 flow was present before and after the procedure. Following this the guide catheter was placed in the right coronary artery followed by Choice PT extra-support wire and a 3.5 x 12 mm Pool frontier stent was placed in the ostial segment at 24 gutierrez reducing this critical stenosis to 0%. WENDY-3 flow was present before and after the procedure. At the end the procedure the apparatus was removed the sheath was removed and hemostasis was achieved using TR banding patient was transferred to the postop holding in stable condition ANGIOGRAPHIC RESULTS The left main artery Has an ostial 30% stenosis The left anterior descending artery Has a proximal calcified 90% stenosis. The vessel gives rise to a large caliber first diagonal artery which has a proximal concentric calcified stenosis. Distal to the first diagonal artery the LAD becomes tortuous small caliber and appears to subtotally occluded with the distal LAD filling via [id number] collaterals The circumflex artery Is a large nondominant vessel and has proximal and mid vessel calcified 30 to 40% stenoses The right coronary artery Is a large dominant vessel and has an ostial calcified 80% stenosis with significant dampening upon engagement with the Poppa catheter The PATEL ventriculogram reveals Not performed The left ventricular end-diastolic pressure Not measured IMPRESSION Severe two-vessel coronary disease as described above Successful stenting the proximal ID critical disease reduced to 0% with 1 drug-eluting stent Apparent chronic mid LAD occlusion which fills via left to left collaterals Moderate disease in the circumflex artery Severe disease in the ostial dominant right coronary artery with successful stenting reducing the lesion to 0% with 1 drug-eluting stent PLAN 1. Dual antiplatelet therapy 2. LDL less than 55 to be achieved with high intensity statin 3. Avoidance of tobacco products 4. Risk factor modification 5. Cardiac rehabilitation Electronically signed by : Perez Llanos MD 03/15/2023 13:31:05
[2023-03-15 09:57] LABS: ABG Base Excess 7.4 mmol/L (-2.4-2.3); ABG HCO3 32.2 mmhg (22.0-26.0); ABG Oxygen Saturation 86 % (90-100); ABG PH 7.41 mmol/L (7.35-7.45); ABG TCO2 33.8 mmhg (23-27)
[2023-03-15 09:59] LABS: Allen's Test Y; Oxygen 4 %; Source R Radial
[2023-03-15 10:01] LABS: ABG PCO2 52.5 mmhg (35.0-45.0)
[2023-03-15 10:02] LABS: ABG PO2 49.9 mmhg (80-100)
--- NOTE | 2023-03-15 10:16 | P.PN_ITS ---
Subjective *Date: 03/15/23 *Time: 11:58 Interval history: No acute respiratory events overnight. Patient denies any new respiratory complaints. Pulmonology Exam Inpatient Vital signs and Labs for Last 24 Hours: Temp Pulse Resp BP Pulse Ox O2 Del Method O2 Flow Rate 98.3 F 83 20 105/61 L 90 L Nasal Cannula 4 03/15/23 08:00 03/15/23 08:00 03/15/23 08:00 03/15/23 08:00 03/15/23 08:00 03/15/23 08:00 03/15/23 05:00 FiO2 40 03/12/23 22:00 Laboratory Results - last 24 hr 03/14/23 11:15: POC Glucose 110 03/14/23 13:00: Vancomycin Trough 7.3 03/14/23 16:38: POC Glucose 62 L 03/14/23 16:55: POC Glucose 66 L 03/14/23 17:05: POC Glucose 62 L 03/14/23 17:41: POC Glucose 66 L 03/14/23 18:40: Vancomycin Peak 20.9 03/14/23 18:48: POC Glucose 169 H 03/15/23 06:18: WBC 11.8 H, RBC 5.54 H, Hgb 13.6, Hct 44.8, MCV 80.9 L, MCH 24.5 L, MCHC 30.3 L, RDW 19.0 H, Plt Count 275, MPV 8.4, Neut % (Auto) 79.3, Lymph % (Auto) 10.4, Bates % (Auto) 9.0, Eos % (Auto) 1.3, Baso % (Auto) 0.1, Neut # (Auto) 9.3 H, Lymph # (Auto) 1.2, Bates # (Auto) 1.1 H, Eos # (Auto) 0.2, Baso # (Auto) 0.0, Sodium 130 L, Potassium 4.2, Chloride 88 L, Carbon Dioxide 38 H, Anion Gap 8.2, BUN 25 H, Creatinine 0.80, Estimated Creat Clear 77, Estimated GFR 70, Est GFR ( Amer) 85, Glucose 126 H, Calcium 8.7, Magnesium 1.8, Total Bilirubin 0.5, AST 32 D, ALT 21, Alkaline Phosphatase 74, Total Protein 6.6, Albumin 3.4 L, Globulin 3.2, Albumin/Globulin Ratio 1.1 03/15/23 09:35: Specimen Source R radial, O2 % 4, ABG pH 7.41, ABG pCO2 52.5 H, ABG pO2 49.9 L, ABG HCO3 32.2 H, ABG Total CO2 33.8 H, ABG O2 Saturation 86 L*, ABG Base Excess 7.4 H, [place] Test Y I & O for Labs for Last 24 Hours: Intake & Output 03/12/23 03/13/23 03/14/23 03/15/23 23:59 23:59 23:59 23:59 Intake Total 640 / 760 1770 / 1770 720 / 960 510 / 510 Output Total 1250 / 1250 4500 / 4500 2150 / 4050 2100 / 2100 Balance -610 / -490 -2730 / -2730 -1430 / -3090 -1590 / -1590 Weight 224 lb 6 oz 223 lb 11.249 oz 217 lb 11.2 oz 216 lb Microbiology Reports for the Last 24 Hours: Microbiology 03/12/23 16:30 Nose MRSA Culture - Final 03/12/23 11:30 Blood Blood Culture - Preliminary 03/12/23 11:15 Blood Blood Culture - Preliminary Constitutional: Present moderate distress Head: Present normocephalic and atraumatic ENT: Present normal exam, normal oropharynx and mucous membranes moist Neck: Present normal inspection and full ROM Respiratory: Present respiratory distress and able to speak in complete sentences; Absent prolonged expiratory phase or wheezes Cardiac: Present S1/S2, Tachycardia and radial pulses present GI: Present soft and distention; Absent tenderness or guarding Rectal (female): Present deferred (female): Present deferred Skin: Present intact; Absent cyanosis or jaundice Neuro: Present alert, awake and oriented x 3 Extremities: Present normal inspection; Absent clubbing or cyanosis Psychiatric: Present normal affect and cooperative Assessment and Plan *Assessment and plan (1) Acute on chronic respiratory failure with hypoxia and hypercapnia: Status: Acute Category: Medical Code(s): J96.21 - Acute and chronic respiratory failure with hypoxia; J96.22 - Acute and chronic respiratory failure with hypercapnia (2) Pneumonia: Status: Acute Qualifiers: Laterality: right Lung location: unspecified part of lung Pneumonia type: due to unspecified organism Qualified Code(s): J18.9 - Pneumonia, unspecified organism Category: Medical Code(s): J18.9 - Pneumonia, unspecified organism Plan Ms. Sena is a 72-year-old retirement resident carries a a diagnosis of COPD, chronic hypoxic respiratory failure on 3 L nasal cannula, sleep apnea admitted to the hospital in January 2023 for COPD exacerbation hypercarbic respiratory failure, discharged to the retirement on BiPAP therapy presented to the hospital worsening respiratory distress and pulmonary was called for further evaluation and management. Significant neutrophilic leukocytosis upon admission. Venous blood gas upon admission showed mild hypercarbic respiratory with a pH of 7.29 and pCO2 56.1. COVID-19 and flu PCR negative On my initial examination of the patient mentation appears disproportionate to the noted hypercarbic, will repeat ABG. CT head upon admission concerning for prior hemorrhage or infection, will defer to primary team for further evaluation and management. Chest x-ray upon admission concerning for right lower lobe airspace disease. Interval update No acute respiratory vents overnight. Stable oxygen requirements. Improving leukocytosis. Discontinued vancomycin today. Continue to receive cefepime. Stable oxygen requirements. Nasal MRSA PCR negative. Plan: -Continue nasal oxygen supplementation to maintain O2 saturation below 92% and above -Continue cefepime for total of 7 days Continue Trelegy 100 inhaler along with DuoNebs every 6 hours on as-needed basis. # NIV compliance report from retirement reviewed, patient on auto CPAP with settings of 6-10. Residual AHI controlled at 3.7. Will change her settings to 6/14/auto CPAP. Patient also benefits from outpatient sleep clinic follow-up. # Thank you for involving pulmonary in this patient care. Will follow the patient in pulmonary clinic 2 to 4 weeks post discharge.
[2023-03-15 11:59] LABS: POC Glucose,Bedside 137 (70-110)
[2023-03-15] MEDS: NITROGLYCERIN 800MCG/8ML SYR (CATH LAB) 800 MCG IA (12:24)
[2023-03-15] MEDS: VERAPAMIL 2.5MG/ML 2ML VIAL 2.5 MG IV (12:24)
[2023-03-15] MEDS: LIDOCAINE 1% 10ML MDV 20 ML IJ (12:24)
[2023-03-15] MEDS: HEPARIN 1,000 UNITS/ML 10ML VIAL (CATH LAB) 10000 UNIT IV (12:24)
[2023-03-15] MEDS: diphenhydrAMINE 50MG/ML VIAL 50 MG IV (12:25)
[2023-03-15] MEDS: HEPARIN 1,000 UNITS/500ML NS (CATH LAB) 3000 UNIT IV (12:25)
--- NOTE | 2023-03-15 13:03 | EXP.CARD.PN ---
Subjective Subjective Date: 03/15/23 Time: 09:30 Principal diagnosis: HFrEF, nonstemi Interval history: This is a 71-year-old female who resides at a retirement was brought to the emergency department due to shortness of breath and lower extremity edema. The patient was found to have an acute exacerbation of HFrEF and an elevated troponin consistent with a non-STEMI. She was also diagnosed with pneumonia and sepsis. She has been treated with IV antibiotics and her shortness of breath has improved. She denies any chest pain or pressure today. She states that she is still short of breath with exertion but it is continuing to improve. She reports having a little bit of mild orthopnea today which is a little worse than yesterday. She states her lower extremity edema has improved. She denies any fever, chills, nausea, vomiting, diarrhea. Exam Data for Last 24 hours Vital signs and Labs for Last 24 Hours: Temp Pulse Resp BP Pulse Ox O2 Del Method O2 Flow Rate 98.1 F 77 18 99/51 L 93 L Nasal Cannula 4 03/15/23 11:52 03/15/23 11:52 03/15/23 11:52 03/15/23 11:52 03/15/23 11:52 03/15/23 11:52 03/15/23 11:52 FiO2 40 03/12/23 22:00 Laboratory Results - last 24 hr 03/14/23 11:15: POC Glucose 110 03/14/23 13:00: Vancomycin Trough 7.3 03/14/23 16:38: POC Glucose 62 L 03/14/23 16:55: POC Glucose 66 L 03/14/23 17:05: POC Glucose 62 L 03/14/23 17:41: POC Glucose 66 L 03/14/23 18:40: Vancomycin Peak 20.9 03/14/23 18:48: POC Glucose 169 H 03/15/23 06:18: WBC 11.8 H, RBC 5.54 H, Hgb 13.6, Hct 44.8, MCV 80.9 L, MCH 24.5 L, MCHC 30.3 L, RDW 19.0 H, Plt Count 275, MPV 8.4, Neut % (Auto) 79.3, Lymph % (Auto) 10.4, [place] % (Auto) 9.0, Eos % (Auto) 1.3, Baso % (Auto) 0.1, Neut # (Auto) 9.3 H, Lymph # (Auto) 1.2, [place] # (Auto) 1.1 H, Eos # (Auto) 0.2, Baso # (Auto) 0.0, Sodium 130 L, Potassium 4.2, Chloride 88 L, Carbon Dioxide 38 H, Anion Gap 8.2, BUN 25 H, Creatinine 0.80, Estimated Creat Clear 77, Estimated GFR 70, Est GFR ( Amer) 85, Glucose 126 H, Calcium 8.7, Magnesium 1.8, Total Bilirubin 0.5, AST 32 D, ALT 21, Alkaline Phosphatase 74, Total Protein 6.6, Albumin 3.4 L, Globulin 3.2, Albumin/Globulin Ratio 1.1 03/15/23 09:35: Specimen Source R radial, O2 % 4, ABG pH 7.41, ABG pCO2 52.5 H, ABG pO2 49.9 L, ABG HCO3 32.2 H, ABG Total CO2 33.8 H, ABG O2 Saturation 86 L*, ABG Base Excess 7.4 H, [place] Test Y 03/15/23 11:52: POC Glucose 137 H I & O for Last 24 hours: Intake & Output 03/12/23 03/13/23 03/14/23 03/15/23 23:59 23:59 23:59 23:59 Intake Total 640 / 760 1770 / 1770 720 / 960 510 / 510 Output Total 1250 / 1250 4500 / 4500 2150 / 4050 2800 / 2800 Balance -610 / -490 -2730 / -2730 -1430 / -3090 -2290 / -2290 Weight 224 lb 6 oz 223 lb 11.249 oz 217 lb 11.2 oz 216 lb Microbiology Reports for the Last 24 Hours: Microbiology 03/12/23 16:30 Nose MRSA Culture - Final 03/12/23 11:30 Blood Blood Culture - Preliminary 03/12/23 11:15 Blood Blood Culture - Preliminary Constitutional Constitutional: no acute distress and average body habitus *Routine HEENT Exam Head: Present normocephalic and atraumatic ENT: Present mucous membranes moist *Routine Neck Exam Neck: Present supple, full ROM and normal carotid upstroke; Absent JVD, carotid bruit or lymphadenopathy *Routine Respiratory Exam Respiratory: Present decreased breath sounds, wheezes, normal respiratory effort, able to speak in complete sentences and symmetric chest movement *Routine Cardiovascular Exam Cardiovascular: Present Normal S1, Normal S2 and irregularly irregular; Absent murmur or gallop *Routine Abdominal Exam Abdominal: Present soft and normoactive bowel sounds; Absent tenderness, distended or organomegaly *Routine Extremities Exam Extremities: Present full ROM, pulses intact and normal capillary refill; Absent cyanosis, clubbing or edema *Routine Skin Exam Skin: Present intact and warm; Absent erythema *Routine Neurological Exam Neurological: Present alert, oriented X3 and CN II-XII intact; Absent sensory deficit or motor deficit Routine Psychiatric Exam Psychiatric: Present normal affect Progress Note: A&P Assessment and plan (1) Non-STEMI (non-ST elevated myocardial infarction): Status: Acute (2) Elevated troponin: Status: Acute (3) HFrEF (heart failure with reduced ejection fraction): Status: Acute (4) Coronary artery disease: Status: Acute (5) Atrial fibrillation: Status: Acute (6) Acute on chronic respiratory failure with hypoxia and hypercapnia: Status: Acute (7) Pneumonia: Status: Acute (8) Right ventricular dilation: Status: Acute (9) Diabetes mellitus, type 2: Status: Acute (10) HLD (hyperlipidemia): Status: Acute (11) HTN (hypertension): Status: Acute (12) Pulmonary hypertension: Status: Acute (13) Cardiomyopathy: Status: Acute Assessment and Plan Assessment and Plan for All Diagnoses:: Plan: 1. The patient was admitted to the hospital with pneumonia and sepsis. She is currently on IV antibiotics and high flow oxygen. Pulmonology has been consulted. 2. Preliminary echo shows an ejection fraction of 40 to 45%. She does have some LV dysfunction which is most likely new onset. 3. She does have elevated troponin consistent with a non-STEMI. Her troponin max 0.19. Given her atypical angina, non-STEMI and new onset cardiomyopathy we will plan to proceed with left cardiac catheterization today to evaluate her coronary artery disease. 4. The patient has been educated the risk and benefits of proceeding with left cardiac catheterization. The patient verbalized understanding and is agreeable in proceeding with the procedure. 5. The patient be n.p.o. in preparation for left cardiac catheterization. 6. Will continue to aggressively diurese the patient with IV Lasix. She has a -3.4 L fluid balance. Continue IV Lasix. 7. Continue Jardiance, Entresto and carvedilol for HFrEF. 8. Her echocardiogram also shows severe RV dilatation. She most likely has severe pulmonary hypertension. Pulmonology has already been consulted because we do suspect that this may be from underlying lung disease. 9. Her blood pressure is well-controlled. 10. Her LDL goal is less than 55. Her LDL is 47. She is on a statin. 11. The patient does have chronic atrial fibrillation. She is currently rate controlled. She is on Eliquis for long-term anticoagulation. She denies any bleeding. 12. The patient is diabetic. She will need aggressive control of her diabetes. Will defer this to the hospitalist. 13. Further recommendations will be made pending the patient's response to treatment and the results of her left cardiac catheterization today. Thank you for the opportunity to help participate in the care of this patient. All recommendations and orders are per Dr. Hitchcock. AMB Pre-cath Criteria Pre-cath considerations: Clinical evaluation and indication for coronary angiography includes:: know CAD, new onset angina <= 2 months and worsening angina Patient is describing chest pain symtom as:: atypical angina Clinical risk factors:: CAD, elevated troponin/nonstemi, CM, LV dysfucntion, HTN, HLD, HFrEF, Afib How many antianginals is the patient taking?: 1 Patient is taking:: beta aliya Risks and benefits:: We will plan to proceed with LHC/coronary angiography with right radial access. The patient has been educated on the risks and benefits of proceeding with LHC/coronary angiography with right radial access. The patient verbalized understanding and is agreeable in proceeding with the procedure.
[2023-03-15] MEDS: MIDAZOLAM HCL 1MG/1ML 5ML VIAL 1 MG IV (13:18)
[2023-03-15] MEDS: FENTANYL 100MCG/2ML VIAL 50 MCG IV (13:19)
[2023-03-15] MEDS: CLOPIDOGREL 300MG TABLET 600 MG PO (13:30)
[2023-03-15] MEDS: IOPAMIDOL-370 (76%);100ML BOTTLE 175 ML IV (13:44)
--- NOTE | 2023-03-15 18:01 | P.PN_ITS ---
Subjective *Date: 03/15/23 *Time: 22:23 Interval history: Patient was somewhat this morning on rounds. Appeared slow to respond. Blood gas showed no hypercarbia. Has been refusing to wear BiPAP at night. N.p.o. for left heart cath. Stable on 3 to 4 L nasal cannula oxygen. Denies any chest pain or fever overnight. No nausea or vomiting. Medical Exam Vital signs and Labs for Last 24 Hours: Vital Signs Temp Pulse Pulse Resp BP BP Pulse Ox 03/15/23 14:00 76 19 134/60 96 03/15/23 13:45 66 18 110/67 100 03/15/23 13:40 64 19 91/62 L 100 03/15/23 13:35 63 18 86/52 L 98 03/15/23 13:30 70 17 93/53 L 97 03/15/23 13:27 70 69 18 91/41 L 87 L 03/15/23 11:52 98.1 F 77 18 99/51 L 93 L 03/15/23 08:00 98.3 F 83 20 105/61 L 90 L 03/15/23 05:00 03/15/23 03:00 03/15/23 01:00 03/15/23 00:00 03/14/23 20:00 03/14/23 23:00 03/14/23 21:00 03/15/23 04:00 98.8 F 83 18 118/71 90 L 03/15/23 00:00 98.4 F 82 16 96/57 L 91 L 03/14/23 20:00 98.5 F 98 H 18 112/70 90 L O2 Del Method O2 Flow Rate 03/15/23 14:00 Nasal Cannula 4 03/15/23 13:45 Nasal Cannula 4 03/15/23 13:40 Nasal Cannula 4 03/15/23 13:35 Nasal Cannula 4 03/15/23 13:30 Nasal Cannula 4 03/15/23 13:27 Nasal Cannula 2 03/15/23 11:52 Nasal Cannula 4 03/15/23 08:00 Nasal Cannula 03/15/23 05:00 Nasal Cannula 4 03/15/23 03:00 Nasal Cannula 4 03/15/23 01:00 Nasal Cannula 4 03/15/23 00:00 Nasal Cannula 4 03/14/23 20:00 Nasal Cannula 4 03/14/23 23:00 Nasal Cannula 4 03/14/23 21:00 Nasal Cannula 4 03/15/23 04:00 Nasal Cannula 03/15/23 00:00 03/14/23 20:00 Nasal Cannula Intake and Output 03/15/23 03/15/23 03/15/23 07:59 15:59 23:59 Intake Total 240 / 510 270 / 510 Output Total 2100 / 2800 700 / 2800 0 / 2800 Balance -1860 / -2290 -430 / -2290 0 / -2290 Intake: Intake, Oral Amount 240 / 510 270 / 510 Output: Output, Urine Amount 2100 / 2800 700 / 2800 0 / 2800 Other: Number of Voids 0 0 Number of Unmeasured Voids 0 0 Weight 97.976 kg Patient Weight 03/15/23 23:59 Weight 97.976 kg Laboratory Results - last 24 hr 03/14/23 18:40: Vancomycin Peak 20.9 03/14/23 18:48: POC Glucose 169 H 03/15/23 06:18: WBC 11.8 H, RBC 5.54 H, Hgb 13.6, Hct 44.8, MCV 80.9 L, MCH 24.5 L, MCHC 30.3 L, RDW 19.0 H, Plt Count 275, MPV 8.4, Neut % (Auto) 79.3, Lymph % (Auto) 10.4, [place] % (Auto) 9.0, Eos % (Auto) 1.3, Baso % (Auto) 0.1, Neut # (Auto) 9.3 H, Lymph # (Auto) 1.2, [place] # (Auto) 1.1 H, Eos # (Auto) 0.2, Baso # (Auto) 0.0, Sodium 130 L, Potassium 4.2, Chloride 88 L, Carbon Dioxide 38 H, Anion Gap 8.2, BUN 25 H, Creatinine 0.80, Estimated Creat Clear 77, Estimated GFR 70, Est GFR ( Amer) 85, Glucose 126 H, Calcium 8.7, Magnesium 1.8, Total Bilirubin 0.5, AST 32 D, ALT 21, Alkaline Phosphatase 74, Total Protein 6.6, Albumin 3.4 L, Globulin 3.2, Albumin/Globulin Ratio 1.1 03/15/23 09:35: Specimen Source R radial, O2 % 4, ABG pH 7.41, ABG pCO2 52.5 H, ABG pO2 49.9 L, ABG HCO3 32.2 H, ABG Total CO2 33.8 H, ABG O2 Saturation 86 L*, ABG Base Excess 7.4 H, [place] Test Y 03/15/23 11:52: POC Glucose 137 H I & O for Labs for Last 24 Hours: Intake & Output 03/12/23 03/13/23 03/14/23 03/15/23 23:59 23:59 23:59 23:59 Intake Total 640 / 760 1770 / 1770 720 / 960 510 / 510 Output Total 1250 / 1250 4500 / 4500 2150 / 4050 2800 / 2800 Balance -610 / -490 -2730 / -2730 -1430 / -3090 -2290 / -2290 Weight 101.775 kg 101.47 kg 98.747 kg 97.976 kg Microbiology Reports for the Last 24 Hours: Microbiology 03/12/23 16:30 Nose MRSA Culture - Final 03/12/23 11:30 Blood Blood Culture - Preliminary 03/12/23 11:15 Blood Blood Culture - Preliminary Constitutional: Present no acute distress, morbidly obese, chronically ill appearing and cooperative Head: Present atraumatic and normocephalic ENT: Present normal exam Respiratory: Present prolonged expiratory phase, crackles (posterior lung jordan) and diminished air movement; Absent rhonchi or wheezes Cardiac: Present Reg Rate and Rhythm GI: Present soft and normal bowel sounds; Absent distention or tenderness Extremities: Present normal inspection, full ROM and edema (3+ to knees but improving) Skin: Present intact; Absent erythema Comment:: Stasis dermatitis of lower extremities Neuro: Present Grossly Intact, alert, awake and moves all extremities Assessment and Plan *Assessment and plan (1) Pneumonia: Status: Acute Qualifiers: Pneumonia type: due to unspecified organism Laterality: right Lung location: unspecified part of lung Qualified Code(s): J18.9 - Pneumonia, unspecified organism Category: Medical Code(s): J18.9 - Pneumonia, unspecified organism (2) Coronary artery disease: Status: Acute Qualifiers: Coronary Disease-Associated Artery/Lesion type: [place] artery [place] vs. transplanted heart: [place] heart Associated angina: with other forms of angina Qualified Code(s): I25.118 - Atherosclerotic heart disease of [place] coronary artery with other forms of angina pectoris Category: Medical Code(s): I25.10 - Atherosclerotic heart disease of [place] coronary artery without angina pectoris (3) Non-STEMI (non-ST elevated myocardial infarction): Status: Acute Category: Medical Code(s): I21.4 - Non-ST elevation (NSTEMI) myocardial infarction (4) Acute on chronic respiratory failure with hypoxia and hypercapnia: Status: Acute Category: Medical Code(s): J96.21 - Acute and chronic respiratory failure with hypoxia; J96.22 - Acute and chronic respiratory failure with hypercapnia (5) Elevated troponin: Status: Acute Category: Medical Code(s): R79.89 - Other specified abnormal findings of blood chemistry (6) Atrial fibrillation: Status: Acute Qualifiers: Atrial fibrillation type: unspecified chronic Qualified Code(s): I48.20 - Chronic atrial fibrillation, unspecified Category: Medical Code(s): I48.91 - Unspecified atrial fibrillation (7) Diabetes mellitus, type 2: Status: Acute Qualifiers: Diabetes mellitus [employer] faculty for medical terminology insulin use: with jail use Diabetes mellitus complication status: with other specified complication Qualified Code(s): E11.69 - Type 2 diabetes mellitus with other specified complication; Z79.4 - [place] (current) use of insulin Category: Medical Code(s): E11.9 - Type 2 diabetes mellitus without complications (8) HTN (hypertension): Status: Acute Qualifiers: Hypertension type: primary hypertension Qualified Code(s): I10 - Essential (primary) hypertension Category: Medical Code(s): I10 - Essential (primary) hypertension (9) Pulmonary hypertension: Status: Acute Category: Medical Code(s): I27.20 - Pulmonary hypertension, unspecified (10) HFrEF (heart failure with reduced ejection fraction): Status: Acute Category: Medical Code(s): I50.20 - Unspecified systolic (congestive) heart failure Plan Patient is a 72-year-old female who lives at custodial facility presented to hospital due to shortness of breath. Patient has past medical history of hypertension hyperlipidemia diabetes mellitus CAD atrial fibrillation on Eliquis, COPD on 3 L nasal cannula. Patient mentions she has been feeling shortness of breath for past 3 to 4 days, she also has associated bilateral lower extremity swelling. She uses 2 L nasal cannula at baseline Denied fever chills diarrhea constipation dysuria. Pulmonology and cardiology consulted and assisting with care. Improving from respiratory standpoint. Going for left heart cath today. Problems addressed as follows: Acute on chronic CHF Elevated troponin likely demand ischemia Pulmonary hypertension, severe RV dilation on echo CAD -Echo obtained with preliminary EF 40 to 45%. Has some LV dysfunction concerning for new onset. Discussed case with cardiology, patient taken for left heart cath, received 2 stents. See report for full details. Tolerated procedure well. Initiate dual antiplatelet therapy with aspirin 81 mg daily and Plavix 75 mg daily. Stable to discharge tomorrow. - Recommend continuing aggressive diuresis with IV Lasix 80 mg twice daily, holding spironolactone due to hyperkalemia. - Potassium 4.2 today. Creatinine 0.8 and BUN 25. Repeat CBC, CMP, magnesium ordered for the morning. -Cardiology recommends initiating Jardiance 10 mg daily and Entresto 24/26 mg twice daily. Continue carvedilol twice daily -Has chronic A-fib, currently rate controlled. Continue Eliquis 5 mg twice daily Sepsis present on admission likely source right lung pneumonia, resolving Acute on chronic hypoxic respiratory failure likely secondary to CHF exacerbation, COPD exacerbation -Pulmonology consulted, discussed case this morning. Continue BiPAP while asleep or napping. Continue supplemental oxygen as needed for goal sats greater 90%. Currently on 3-4 L. - Continue cefepime for total of 7 days pending blood culture and sputum culture. -Continue Trelegy 100 inhaler along with DuoNebs every 6 hours on as-needed basis. - NIV compliance report from custodial reviewed, patient on auto CPAP with settings of 6-10. Residual AHI controlled at 3.7. Pulm recommends changing her settings to 6/14/auto CPAP. Patient would also benefit from outpatient sleep clinic follow-up. Diabetes mellitus -Insulin sliding scale with FSGS ACHS -Hold long-acting insulin as her blood sugars have been running low through the day. DVT prophylaxis-on Eliquis
--- NOTE | 2023-03-15 18:14 | PC.NURSE ---
Patient went to [facility]ili[facility] todayand received 2 stents. Patient's radial band has been removes, and vss. Patient alert and oriented but drowsy at this time.
[2023-03-15 19:14] LABS: POC Glucose,Bedside 123 (70-110)
[2023-03-15] MEDS: PARoxetine 20MG TABLET 40 MG PO (21:39)
[2023-03-15] MEDS: PANTOPRAZOLE 40MG TABLET 40 MG PO (21:40)
[2023-03-15] MEDS: ATORVASTATIN 40MG TABLET 40 MG PO (21:41)
[2023-03-15] MEDS: TRAZODONE 50MG TABLET 50 MG PO (21:41)
[2023-03-15] MEDS: AMITRIPTYLINE 25MG TABLET 25 MG PO (21:42)
[2023-03-16] VITALS: BP 107/56; PULSE 77; RESP 17; TEMP 36.9; O2SAT 93
[2023-03-16 04:00] VITALS: BP 112/67; PULSE 72; RESP 16; TEMP 36.8; O2SAT 92; BMI 35.5
[2023-03-16] MEDS: CEFEPIME HCL 2 GM in 0.9 % SODIUM CHLORIDE 100 ML IV (04:37)
[2023-03-16] MEDS: FLUTICASONE/UMECLIDIN/VILANTER 100/62.5/25MCG INHALER 1 PUFF IH (06:35)
[2023-03-16 06:57] LABS: Chloride 88 mmol/L (98-107)
[2023-03-16 06:58] LABS: Potassium 3.6 mmoL/L (3.5-5.1); Sodium 131 mmol/L (136-145)
[2023-03-16 07:00] LABS: Alanine Aminotransferase 21 U/L (12-78); Alkaline Phosphatase 81 U/L (38-126); Aspartate Amino Transferase 30 U/L (14-36); Bilirubin,Total 0.5 mg/dl (0.2-1.3); Blood Urea Nitrogen 29 mg/dl (7-17); Creatinine Clearance Estimated 75 mL/min (50-200); Estimated Glomerular Filt Rate 54 ml/min (>60); GFR (African American) 66 ML/MIN (>60)
[2023-03-16 07:01] LABS: Albumin Level 3.1 g/dl (3.5-5.0); Calcium 8.6 mg/dl (8.4-10.2); Globulin 3.2 g/dL (1.3-3.2); Glucose 115 mg/dl (74-100); Total Protein,Serum 6.3 g/dl (6.3-8.2)
[2023-03-16 07:08] LABS: Anion Gap 10.6 mEq/L (5-15); Carbon Dioxide 36 mmol/L (22.0-30.0)
[2023-03-16 07:52] LABS: Basophils % 0.4 % (0.1-2.0); Eosinophils # 0.2 K/mm3 (0.0-0.4); Eosinophils % 2.1 % (0.1-12.0); Hematocrit 42.2 % (37.0-47.0); Hemoglobin 13.5 g/dL (12.2-16.2); Lymphocytes # 1.1 K/mm3 (0.7-4.5); Lymphocytes % 10.5 % (10-50); Mean Corpuscular Hemoglobin 25.6 pg (27.0-31.2); Mean Corpuscular Volume 79.9 fl (81-99); Mean Platelet Volume 10.1 fl (7.4-10.4); Monocytes # 0.9 K/mm3 (0.1-1.0); Monocytes % 8.6 % (1.7-9.3); Neutrophils # 8.6 K/mm3 (1.8-7.8); Neutrophils % 78.5 % (37.0-80.0); Platelet Count 277 K/mm3 (142-424); Red Blood Count 5.27 M/mm3 (4.20-5.40); Red Cell Distribution Width 19.6 % (11.5-17.5); White Blood Count 10.9 K/mm3 (4.8-10.8)
[2023-03-16 08:00] VITALS: BP 131/74; PULSE 57; RESP 22; TEMP 36.5; O2SAT 91
[2023-03-16 09:15] VITALS: O2SAT 92
[2023-03-16] MEDS: HYDROCODONE/APAP 5/325 MG TABLET 1 TAB PO (09:15)
[2023-03-16] MEDS: CLOPIDOGREL 75MG TAB 75 MG PO (09:16)
[2023-03-16] MEDS: SACUBITRIL/VALSARTAN 24-26MG TABLET 1 EACH PO (09:16)
[2023-03-16] MEDS: BUSPIRONE HCL 10 MG TABLET PO (09:16)
[2023-03-16] MEDS: APIXABAN 5MG TABLET 5 MG PO (09:16)
[2023-03-16] MEDS: ASPIRIN 81MG CHEWABLE TABLET 81 MG PO (09:16)
[2023-03-16] MEDS: GABAPENTIN 300MG CAPSULE 300 MG PO (09:16)
[2023-03-16] MEDS: CARVEDILOL 3.125MG TABLET 3.125 MG PO (09:16)
[2023-03-16] MEDS: FERROUS SULFATE 325MG TABLET 325 MG PO (09:16)
[2023-03-16] MEDS: EMPAGLIFLOZIN 10MG TABLET 10 MG PO (09:18)
[2023-03-16] MEDS: FUROSEMIDE 40MG/4ML VIAL 80 MG IV (09:19)
--- NOTE | 2023-03-16 09:55 | PC.NURSE ---
called report to Alana LEO.
[2023-03-16 11:23] LABS: POC Glucose,Bedside 181 (70-110)
[2023-03-16] MEDS: humaLOG 100 UNITS/ML 3ML VIAL (SSI) SQ (11:31)
--- NOTE | 2023-03-16 12:44 | EXP.CARD.PN ---
Subjective Subjective Date: 03/16/23 Time: 09:00 Principal diagnosis: HFrEF, nonstemi Interval history: This is a 72-year-old female who was admitted to the hospital with a non-STEMI and acute exacerbation of HFrEF. The patient was also treated for pneumonia and sepsis. The patient underwent left cardiac catheterization and had 2 stents placed. She is on Plavix and aspirin for dual antiplatelet therapy. This morning she denies any chest pain or pressure. She states her shortness of breath is significantly improved. She denies any lower extremity edema. She denies any fever, chills, nausea, vomiting or diarrhea. The patient states that she is ready to be discharged and [facility]. Exam Data for Last 24 hours Vital signs and Labs for Last 24 Hours: Temp Pulse Resp BP Pulse Ox O2 Del Method O2 Flow Rate 97.7 F 57 L 22 131/74 92 L Nasal Cannula 4 03/16/23 08:00 03/16/23 08:00 03/16/23 08:00 03/16/23 08:00 03/16/23 09:15 03/16/23 11:00 03/16/23 11:00 FiO2 40 03/12/23 22:00 Laboratory Results - last 24 hr 03/15/23 17:18: POC Glucose 123 H 03/16/23 06:00: WBC 10.9 H, RBC 5.27, Hgb 13.5, Hct 42.2, MCV 79.9 L, MCH 25.6 L, MCHC 32.0, RDW 19.6 H, Plt Count 277, MPV 10.1, Neut % (Auto) 78.5, Lymph % (Auto) 10.5, [place] % (Auto) 8.6, Eos % (Auto) 2.1, Baso % (Auto) 0.4, Neut # (Auto) 8.6 H, Lymph # (Auto) 1.1, [place] # (Auto) 0.9, Eos # (Auto) 0.2, Baso # (Auto) 0.0, Sodium 131 L, Potassium 3.6, Chloride 88 L, Carbon Dioxide 36 H, Anion Gap 10.6, BUN 29 H, Creatinine 1.00 D, Estimated Creat Clear 75, Estimated GFR 54 L, Est GFR ( Amer) 66 D, Glucose 115 H, Calcium 8.6, Total Bilirubin 0.5, AST 30, ALT 21, Alkaline Phosphatase 81, Total Protein 6.3, Albumin 3.1 L, Globulin 3.2, Albumin/Globulin Ratio 1.0 L 03/16/23 11:16: POC Glucose 181 H I & O for Last 24 hours: Intake & Output 03/13/23 03/14/23 03/15/23 03/16/23 23:59 23:59 23:59 23:59 Intake Total 1770 / 1770 720 / 960 750 / 870 480 / 480 Output Total 4500 / 4500 2150 / 4050 3800 / 4400 950 / 950 Balance -2730 / -2730 -1430 / -3090 -3050 / -3530 -470 / -470 Weight 223 lb 11.249 oz 217 lb 11.2 oz 216 lb 208 lb Microbiology Reports for the Last 24 Hours: Microbiology 03/12/23 11:30 Blood Blood Culture - Preliminary 03/12/23 11:15 Blood Blood Culture - Preliminary Constitutional Constitutional: no acute distress and average body habitus *Routine HEENT Exam Head: Present normocephalic and atraumatic ENT: Present mucous membranes moist *Routine Neck Exam Neck: Present supple, full ROM and normal carotid upstroke; Absent JVD, carotid bruit or lymphadenopathy *Routine Respiratory Exam Respiratory: Present decreased breath sounds, wheezes, normal respiratory effort, able to speak in complete sentences and symmetric chest movement *Routine Cardiovascular Exam Cardiovascular: Present Normal S1, Normal S2 and irregularly irregular; Absent murmur or gallop *Routine Abdominal Exam Abdominal: Present soft and normoactive bowel sounds; Absent tenderness, distended or organomegaly *Routine Extremities Exam Extremities: Present full ROM, pulses intact and normal capillary refill; Absent cyanosis, clubbing or edema *Routine Skin Exam Skin: Present intact and warm; Absent erythema *Routine Neurological Exam Neurological: Present alert, oriented X3 and CN II-XII intact; Absent sensory deficit or motor deficit Routine Psychiatric Exam Psychiatric: Present normal affect Progress Note: A&P Assessment and plan (1) HFrEF (heart failure with reduced ejection fraction): Status: Acute (2) Non-STEMI (non-ST elevated myocardial infarction): Status: Acute (3) CAD in [place] artery: Status: Acute (4) Pneumonia: Status: Acute (5) Sepsis due to pneumonia: Status: Acute (6) Acute on chronic respiratory failure with hypoxia and hypercapnia: Status: Acute (7) Elevated troponin: Status: Acute (8) Atrial fibrillation: Status: Acute (9) Diabetes mellitus, type 2: Status: Acute (10) HTN (hypertension): Status: Acute (11) Pulmonary hypertension: Status: Acute (12) Cardiomyopathy: Status: Acute (13) Right ventricular dilation: Status: Acute (14) HLD (hyperlipidemia): Status: Acute Assessment and Plan Assessment and Plan for All Diagnoses:: Plan: 1. The patient was admitted to the hospital with pneumonia and sepsis. She is currently on IV antibiotics and high flow oxygen. Pulmonology has been consulted. 2. Preliminary echo shows an ejection fraction of 40 to 45%. She does have some LV dysfunction which is most likely new onset. 3. She did have elevated troponin consistent with a non-STEMI. The patient underwent left cardiac catheterization and had stenting to her LAD and right coronary artery. She will be on Plavix and aspirin for dual antiplatelet therapy due to stenting. 4. The patient has chronic atrial fibrillation. She is on Eliquis for anticoagulation. Will resume Eliquis as well. 5. The patient will be on triple therapy with Plavix, aspirin and Eliquis for 30 days. After 30 days the patient can stop aspirin and remain on Plavix and Eliquis. She has verbalized understanding. She denies any bleeding. 6. The patient will be converted over to oral Bumex for continued diuresis. Will increase her Bumex to 2 mg p.o. twice daily. 7. Continue Jardiance, Entresto, spironolactone and carvedilol for HFrEF. 8. Her echocardiogram also shows severe RV dilatation. She most likely has severe pulmonary hypertension. Pulmonology has already been consulted because we do suspect that this may be from underlying lung disease. 9. Her blood pressure is well-controlled. 10. Her LDL goal is less than 55. Her LDL is 47. She is on a statin. 11. The patient is diabetic. She will need aggressive control of her diabetes. Will defer this to the hospitalist. 12. No further recommendations at this time from a cardiac standpoint. The patient can be discharged home today from a cardiac standpoint. He will need to be discharged on the following cardiac medications: Aspirin 81 mg p.o. daily, Bumex 2 mg p.o. twice daily, Coreg 3.125 mg p.o. twice daily, Plavix 75 mg daily, Eliquis 5 mg p.o. twice daily, Jardiance 10 mg daily, omeprazole 40 mg daily, Crestor 10 mg daily, Entresto 24/26 mg p.o. twice daily, spironolactone 50 mg p.o. daily. Thank you for the opportunity to help participate in the care of this patient. All recommendations and orders are per Dr. Hitchcock.
== END 2023-03-16 12:09 | DRG 853 ==
LOC: ER 12:30 → 2ND 12:46
PROVIDERS: Internal Medicine; Internal Medicine Adolescent Medicine; Nurse Practitioner Family; Admitting Provider Internal Medicine; Emergency Provider Emergency Medicine; Visit Provider Internal Medicine
PROC: 027135Z Dilation of Coronary Artery, Two Arteries with Two Drug-eluting Intraluminal Devices, Percutaneous Approach (ICD-10-PCS; principal; 2023-03-15 14:15)
DX: A41.9 Sepsis, unspecified organism (principal); I21.4 Non-ST elevation (NSTEMI) myocardial infarction; I50.21 Acute systolic (congestive) heart failure; J18.9 Pneumonia, unspecified organism; J96.22 Acute and chronic respiratory failure with hypercapnia; J96.21 Acute and chronic respiratory failure with hypoxia; J44.0 Chronic obstructive pulmonary disease with (acute) lower respiratory infection; J44.1 Chronic obstructive pulmonary disease with (acute) exacerbation; I48.20 Chronic atrial fibrillation, unspecified; Z79.4 Long term (current) use of insulin; E78.5 Hyperlipidemia, unspecified; F41.9 Anxiety disorder, unspecified; D50.9 Iron deficiency anemia, unspecified; I11.0 Hypertensive heart disease with heart failure; Z99.81 Dependence on supplemental oxygen; I27.20 Pulmonary hypertension, unspecified
CPT/HCPCS: 36410; 36415; 70450; 71045; 80048; 80053; 80061; 80202; 81001; 82803; 82962; 83605; 83735; 83880; 84145; 84484; 85007; 85025; 85347; 85378; 87040; 87081; 87636; 92928; 93005; 93306; 93458; 94640; 94760; 94761; 99152; 99153; 99291; C1725; C1769; C1876; C9600; J1644; J1956; Q9967

== ENCOUNTER 2023-03-17 17:01 | Observation (INO) | payer MEDICARE, SELFPAY ==
[2023-03-17] VITALS (13 sets, daily range): BP systolic 86–130; BP diastolic 49–78; PULSE 62–79; RESP 16–20; TEMP 36.6–37; O2SAT 88–95; BMI 37.2
--- NOTE | 2023-03-17 17:03 | ECG_ITS ---
APPROVED REPORT Exam: Resting ECG HR:66 bpm ECG Measurements Heart Rate 66 AXES QRSd 125 QRS 123 QT 427 T 93 QTc 440 Conclusion ATRIAL FIBRILLATION POSSIBLE RIGHT VENTRICULAR HYPERTROPHY [SOME/ALL OF: PROMINENT R IN V1, LATE TRANSITION, RAD, MANAS, SSS] ST DEVIATION AND MODERATE T-WAVE ABNORMALITY, CONSIDER ANTEROLATERAL ISCHEMIA [-0.1+ mV T-WAVE IN V3-V6] ABNORMAL ECG UNCONFIRMED REPORT Electronically signed by : Kristian Bynum MD 03/18/2023 14:32:27
--- NOTE | 2023-03-17 17:13 | HMH.EDGENADL ---
Discharge Plan Disposition Patient Disposition: Admitted Chief Complaint: Weakness Clinical Impressions Clinical Impression: TESSIE (acute kidney injury), Elevated troponin, Acute hyponatremia, Azotemia, Transaminitis Discharge ED Provider: Nelson Beckman General Adult HPI General Chief complaint: Weakness Stated complaint: Weakness Time Seen by Provider: 03/17/23 17:02 Mode of Arrival: EMS Source of Information: Patient and EMS Limitations: No Limitations Description of Symptoms (Recalled from ER Triage Doc. by RN): Patient brought in via EMS for low BP from [facility]. [facility] called and stated patient was hypotensive and hard to arouse. Patient states she just feels weak. Patient sent home with midline in left upper arm to receive antibiotics. History of Present Illness HPI narrative: Patient is a 72-year-old female with multiple comorbidities, recently admitted for pneumonia here who presents emergency department for evaluation of low blood pressures. Per review of discharge summary on 03-15-2023 patient has history of COPD on 3 L at baseline. Echo was obtained showing pulmonary hypertension, severe RV dilatation, ejection fraction of 40 to 45% for which ischemic workup was conducted and patient was started on Bumex 2 mg twice daily. Patient had sepsis with right lung pneumonia and was discharged on cefepime for 7 days after for which they have been compliant. Due to hypotension at long-term they transferred her here for continued evaluation. Upon arrival patient has no worsening complaints. Related Data Home Medications Medication Instructions Recorded Confirmed ergocalciferol (vitamin D2) 1,250 1,250 mcg PO MO Supplement 08/12/20 03/12/23 mcg (50,000 unit) capsule rosuvastatin 10 mg tablet 10 mg PO HS Cholesterol 08/12/20 03/12/23 tiotropium bromide 2.5 1 puff inhalation DAILY Copd 08/12/20 03/12/23 mcg/actuation mist for inhalation (Spiriva Respimat) acetaminophen 500 mg tablet 1,000 mg PO Q6HP PRN Mild Pain 12/18/22 03/12/23 (Tylenol Extra Strength) (Scale Score 1-4) albuterol sulfate 90 mcg/actuation 2 puff inhalation Q4HP PRN 12/18/22 03/12/23 aerosol inhaler shortness of air or wheezing related to copd amitriptyline 25 mg tablet 25 mg PO HS mood 12/18/22 03/12/23 apixaban 5 mg tablet (Eliquis) 5 mg PO BID Blood Thinner/DVT 12/18/22 03/12/23 Prophylaxis aspirin 81 mg capsule 81 mg PO DAILY Heart Health 12/18/22 03/12/23 budesonide-formoterol HFA 160 2 puff inhalation BIDRT Breathing 12/18/22 03/13/23 mcg-4.5 mcg/actuation aerosol Problems inhaler (Symbicort) buspirone 10 mg tablet 10 mg PO BID Anxiety 12/18/22 03/12/23 carvedilol 3.125 mg tablet 3.125 mg PO BID High Blood Pressure 12/18/22 03/12/23 docusate sodium 100 mg tablet 100 mg PO BID Constipation 12/18/22 03/12/23 ferrous sulfate 324 mg (65 mg 324 mg PO DAILY anemia 12/18/22 03/12/23 iron) tablet,delayed release icosapent ethyl 1 gram capsule 1 g PO BID Hyperlipidemia 12/18/22 03/12/23 (Vascepa) insulin lispro 100 unit/mL 0 sliding scale dose SQ ACHS 12/18/22 03/12/23 subcutaneous pen Diabetes multivitamin 1 tab PO DAILY Supplement 12/18/22 03/12/23 nitroglycerin 0.4 mg sublingual 0.4 mg sublingual Q5MINP PRN Chest 12/18/22 03/12/23 tablet Pain omeprazole 40 mg capsule,delayed 40 mg PO HS Acid Reflux 12/18/22 03/12/23 release polyethylene glycol 3350 17 gram 17 g PO DAILY Constipation 12/18/22 03/12/23 oral powder packet (Miralax) trazodone 50 mg tablet 50 mg PO HS Insomnia 12/18/22 03/12/23 acetaminophen 500 mg tablet 500 mg PO AC Pain 12/19/22 03/12/23 albuterol sulfate 2.5 mg/3 mL 2.5 mg inhalation Q4HP PRN 12/19/22 03/12/23 (0.083 %) solution for nebulization shortness of air or wheezing gabapentin 300 mg capsule 300 mg PO BID Pain 12/19/22 03/12/23 paroxetine HCl 40 mg tablet 40 mg PO HS mood 12/19/22 03/12/23 hydrocodone 5 mg-acetaminophen 325 1 tab PO Q12HP PRN Moderate Pain 01/12/23 03/13/23 mg tablet (Scale Score 5-6) oxymetazoline 0.05 % nasal spray 2 spray intranasal Q12HP PRN Nasal 01/12/23 03/12/23 (Afrin Sinus (oxymetazoline)) Congestion spironolactone 50 mg tablet 50 mg PO DAILY Fluid 03/12/23 03/12/23 (Aldactone) Previous Rx's Medication Instructions Recorded bumetanide 1 mg tablet 2 mg PO BIDL Fluid 30 days #0 tabs 03/15/23 empagliflozin 10 mg tablet 10 mg PO DAILY #0 tabs 03/15/23 (Jardiance) fluticasone fur. 100 mcg-umeclid 1 inh inhalation DAILY #0 ea 03/15/23 62.5 mcg-vilant 25 mcg inhalat.powder (Trelegy Ellipta) sacubitril 24 mg-valsartan 26 mg 30 tab PO BID 30 days #0 tabs 03/15/23 tablet (Entresto) cefepime 2 gram solution for 2 g IV Q12H 3 days 03/16/23 injection clopidogrel 75 mg tablet 75 mg PO DAILY 30 days #30 tabs 03/16/23 Allergies Allergy/AdvReac Type Severity Reaction Status Date / Time cephalexin Allergy Verified 03/12/23 10:36 Penicillins Allergy Verified 03/12/23 10:36 [facility] Disclaimer: The information contained in this section may have been updated after the patient was seen, as this information can be updated by other users. Medical History (Updated 03/17/23 @ 19:48 by Nelson Beckman MD) Anxiety Atrial fibrillation BMI 30.0-30.9,adult CAD in [place] artery Callus of foot Cardiomyopathy Class 2 obesity due to excess calories with body mass index (BMI) of 39.0 to 39.9 in adult Congestive heart failure COPD (chronic obstructive pulmonary disease) Coronary artery disease Depression Diabetes mellitus, type 2 Diabetic foot Fibromyalgia GERD (gastroesophageal reflux disease) Heart failure HFrEF (heart failure with reduced ejection fraction) HLD (hyperlipidemia) HTN (hypertension) Insomnia Iron deficiency anemia Lymphedema Major depressive disorder Non-STEMI (non-ST elevated myocardial infarction) Onychodystrophy Onychomycosis Osteoarthritis Osteoporosis Paresthesia of both lower extremities Pneumonia Pulmonary hypertension Right ventricular dilation Surgical History H/O hernia repair H/O: hysterectomy History of bladder surgery History of coronary artery stent placement Family History Other No significant family history Social History (Updated 03/12/23 @ 14:26 by Phuong Foster, FELIPA) Smoking Status: Former smoker tobacco type: cigarettes packs per day: 2 alcohol intake: never substance use type: denies use current occupational status: retired and disabled Travel in the last 8 weeks: None housing: long-term lives independently: No long-term: Yes ROS Obtained: Yes Systems reviewed as appropriate & no additional complaints except as documented Physical Exam General General appearance: alert and in no apparent distress Head Head exam: atraumatic and normocephalic Eye Eye exam: Present PERRL and EOMI ENT ENT exam: Present mucous membranes moist Neck Neck exam: Present normal inspection Chest Chest inspection: Present normal inspection and symmetric chest wall rise Respiratory Respiratory exam: Present normal lung sounds bilaterally; Absent respiratory distress Cardiovascular Cardiovascular exam: Present regular rate and normal rhythm Abdominal Exam Abdominal exam: Present soft; Absent tenderness Extremities Exam Extremities exam: Present normal inspection Neurological Exam Neurological exam: Present alert Psychiatric Psychiatric exam: Present normal affect Skin Skin exam: Present warm and dry Medical Decision Making Tj Inquiry Pt receiving controlled substance: No Vital Signs: 03/17/23 17:02 03/17/23 17:27 03/17/23 17:30 Temperature 98.4 F Temperature Source Tympanic Pulse Rate 64 64 Pulse Rate [Left] 72 Respiratory Rate 20 20 Blood Pressure 104/63 L 97/49 L Blood Pressure [Right Arm] 87/50 L Blood Pressure Mean [Right Arm] 62 Blood Pressure Source Automatic Cuff Blood Pressure Source [Right Arm] Automatic Cuff Blood Pressure Position Supine Blood Pressure Position [Right Arm] Supine 02 Sat by Pulse Oximetry 90 L 92 L 92 L Oxygen Delivery Method Nasal Cannula Nasal Cannula Nasal Cannula Oxygen Flow Rate (LPM) 3 3 3 03/17/23 18:00 03/17/23 18:15 03/17/23 18:30 Temperature Temperature Source Pulse Rate 70 78 70 Pulse Rate [Left] Respiratory Rate Blood Pressure 102/55 L 97/57 L 90/55 L Blood Pressure [Right Arm] Blood Pressure Mean [Right Arm] Blood Pressure Source Blood Pressure Source [Right Arm] Blood Pressure Position Blood Pressure Position [Right Arm] 02 Sat by Pulse Oximetry 94 L 93 L 94 L Oxygen Delivery Method Nasal Cannula Nasal Cannula Nasal Cannula Oxygen Flow Rate (LPM) 3 3 3 03/17/23 19:00 03/17/23 19:03 03/17/23 19:30 Temperature Temperature Source Pulse Rate 67 67 70 Pulse Rate [Left] Respiratory Rate Blood Pressure 98/51 L 107/60 L 95/50 L Blood Pressure [Right Arm] Blood Pressure Mean [Right Arm] Blood Pressure Source Blood Pressure Source [Right Arm] Blood Pressure Position Blood Pressure Position [Right Arm] 02 Sat by Pulse Oximetry 93 L 92 L 93 L Oxygen Delivery Method Nasal Cannula Oxygen Flow Rate (LPM) 3 Lab Data Lab Results 03/17/23 17:10: WBC 10.8, RBC 5.02, Hgb 12.8, Hct 40.0, MCV 79.8 L, MCH 25.6 L, MCHC 32.1, RDW 19.8 H, Plt Count 292, MPV 9.1, Neut % (Auto) 80.2 H, Lymph % (Auto) 9.9 L, [place] % (Auto) 8.4, Eos % (Auto) 1.3, Baso % (Auto) 0.3, Neut # (Auto) 8.7 H, Lymph # (Auto) 1.1, [place] # (Auto) 0.9, Eos # (Auto) 0.1, Baso # (Auto) 0.0, Sodium 125 L, Potassium 4.0, Chloride 85 L, Carbon Dioxide 37 H, Anion Gap 7.0, BUN 64 H D, Creatinine 1.70 H D, Estimated Creat Clear 46, Estimated GFR 29 L, Est GFR ( Amer) 36 L D, Glucose 272 H, Lactate 1.1, Calcium 8.2 L, Total Bilirubin 0.4, AST 192 H D, ALT 164 H D, Alkaline Phosphatase 75, Troponin I 0.17 H, Total Protein 6.0 L, Albumin 2.9 L, Globulin 3.1, Albumin/Globulin Ratio 0.9 L 03/17/23 17:13: VBG pH 7.32, VBG pCO2 57.3 H, VBG pO2 63.7 H, VBG HCO3 28.9, VBG Total CO2 30.6 H, VBG O2 Saturation 89.4 H, VBG Base Excess 2.8 H 03/17/23 18:14: Urine Color Yellow, Urine Appearance Clear, Urine pH 5.5, Ur Specific [place] 1.020, Urine Protein Negative, Urine Glucose (UA) 2+, Urine Ketones Trace, Urine Blood Negative, Urine Nitrate Negative, Urine Bilirubin Negative, Urine Urobilinogen 0.2, Ur Leukocyte Esterase Trace, Urine RBC None, Urine WBC 5-10, Ur Squamous Epith Cells 10-20, Urine Bacteria Trace, Hyaline Casts 3-5 03/17/23 17:10 03/17/23 17:10 Orders (Tests/Meds): ED MEDICATIONS Generic Name Dose Route Start Last Admin Trade Name Freq PRN Reason Stop Dose Admin Norepinephrine/Dextrose 8 mg in 250 mls @ 15 mls/hr 03/17/23 17:16 Norepinephrine 8mg/250ml-D5w Premix IV 04/16/23 17:15 .[id number] JÚNIOR Protocol 8 MCG/MIN Discontinued Medications Generic Name Dose Route Start Last Admin Trade Name Freq PRN Reason Stop Dose Admin Lactated Ringer's 1,000 mls @ 999 mls/hr 03/17/23 17:13 03/17/23 17:22 Lactated Ringer's 1000 Ml Bag IV 03/17/23 18:13 999 mls/hr .Q1H1M ONE Administration ORDERS Category Date Time Status Complete Blood Count Auto Diff Stat Lab 03/17/23 17:10 Completed Comprehensive Metabolic Panel Stat Lab 03/17/23 17:10 Completed Lactic Acid Stat Lab 03/17/23 17:10 Completed Trop I [Troponin I] Stat Lab 03/17/23 17:10 Completed Troponin I Q3H Lab 03/17/23 20:30 Ordered Troponin I Q3H Lab 03/17/23 23:30 Ordered UA [Urinalysis and Microscopic] Stat Lab 03/17/23 18:14 Completed Blood Culture Stat Micro 03/17/23 17:43 Received Urine Culture Stat Micro 03/17/23 18:14 Received VBG [Venous Blood Gas] Stat RT 03/17/23 17:13 Completed ECG Data Tracing #1: Independently interpreted by me, rate is 66, rhythm is irregular, atrial fibrillation, no ST elevation in anatomical contiguous leads. Persistent scooping ST segment in the lateral leads unchanged from prior, QTc 440 Tracing #2: Independently interpreted by me, rate is 70, rhythm is regular, atrial fibrillation, scooping ST segment in the lateral lead, no dynamic changes from initial EKG, no ST elevation in anatomical contiguous leads, QTc 450. HEART Score History (anamnesis): Slightly suspicious ECG: Non-specific disturbance Age: >65 years Risk factors: Atherosclerosis history Troponin: > 3x normal limit HEART Score: 7 Medical Decision Narrative: In summary patient is a 72-year-old female with past medical history described above who presents emergency department for evaluation of hypotension in the setting of recently diagnosed pneumonia with inpatient hospitalization, PICC line placement on cefepime with appropriate antibiotic compliance. Patient is hemodynamically unstable upon arrival, 87/50, afebrile, no significant tachypnea, baseline oxygen saturations, nonfocal exam and alert and oriented otherwise. Differential includes intravascular depletion with history of aggressive diuresis, worsening sepsis, among others. Initial workup will be conducted with hematologic labs, chest x-ray, repeat blood cultures. Patient will undergo small crystalloid bolus 500 cc and broadening of antibiotics will be deferred as I think it is more likely that she is intravascularly deplete given her history and physical exam. Aggressive volume resuscitation will be deferred given history of heart failure and diuresis. Initial workup reviewed by me, resolved leukocytosis from prior, compensated acid-base status, acute TESSIE with hyponatremia, azotemia, noncritical hyperglycemia, mild transaminitis, elevated troponin that is downtrending from prior. Serial EKG shows no dynamic changes. The case was discussed with hospital medicine regarding management and patient will be admitted for continued evaluation at this time. Critical Care Critical Care Time Critical Care Time: Yes Attestation: On 03/17/23, the high probability of a clinically significant, sudden or life threatening deterioration of the following system(s) required my full and direct attention, intervention and personal management. The time I documented below is in addition to time spent performing reported procedures but includes the following listed in this critical care notation. Total Time Total Critical Care Time: 45
[2023-03-17] MEDS: LACTATED RINGERS 1000ML 1,000 ML 999 ML IV (17:22)
[2023-03-17 17:27] LABS: Chloride 85 mmol/L (98-107); Sodium 125 mmol/L (136-145)
--- NOTE | 2023-03-17 17:29 | PC.NURSE ---
Dr. Hemphill at [facility]
[2023-03-17 17:30] LABS: Alanine Aminotransferase 164 U/L (12-78); Albumin Level 2.9 g/dl (3.5-5.0); Albumin/Globulin Ratio 0.9 (1.1-1.8); Alkaline Phosphatase 75 U/L (38-126); Aspartate Amino Transferase 192 U/L (14-36); Bilirubin,Total 0.4 mg/dl (0.2-1.3); Blood Urea Nitrogen 64 mg/dl (7-17); Carbon Dioxide 37 mmol/L (22.0-30.0); Creatinine Clearance Estimated 46 mL/min (50-200); Estimated Glomerular Filt Rate 29 ml/min (>60); GFR (African American) 36 ML/MIN (>60); Globulin 3.1 g/dL (1.3-3.2)
[2023-03-17 17:31] LABS: Calcium 8.2 mg/dl (8.4-10.2); Glucose 272 mg/dl (74-100)
[2023-03-17 17:34] LABS: Lactic Acid 1.1 mmol/L (0.7-2.1)
[2023-03-17 17:35] LABS: Basophils % 0.3 % (0.1-2.0); Eosinophils # 0.1 K/mm3 (0.0-0.4); Eosinophils % 1.3 % (0.1-12.0); Hemoglobin 12.8 g/dL (12.2-16.2); Lymphocytes # 1.1 K/mm3 (0.7-4.5); Lymphocytes % 9.9 % (10-50); Mean Corpuscular HGB Conc 32.1 g/dL (31.8-35.4); Mean Corpuscular Hemoglobin 25.6 pg (27.0-31.2); Mean Corpuscular Volume 79.8 fl (81-99); Mean Platelet Volume 9.1 fl (7.4-10.4); Monocytes # 0.9 K/mm3 (0.1-1.0); Monocytes % 8.4 % (1.7-9.3); Neutrophils # 8.7 K/mm3 (1.8-7.8); Neutrophils % 80.2 % (37.0-80.0); Platelet Count 292 K/mm3 (142-424); Red Blood Count 5.02 M/mm3 (4.20-5.40); Red Cell Distribution Width 19.8 % (11.5-17.5); White Blood Count 10.8 K/mm3 (4.8-10.8)
[2023-03-17 17:40] LABS: VBG Base Excess 2.8 mmol/L (-2.4-2.3); VBG HCO3 28.9 mmol/L (23-30); VBG Oxygen Saturation 89.4 % (50-70); VBG PH 7.32 mmol/L (7.31-7.41); VBG PO2 63.7 mmol/L (28-40); VBG Total CO2 30.6 mmol/L (23-27)
[2023-03-17 17:42] LABS: VBG PCO2 57.3 mmol/L (35-51)
[2023-03-17 17:43] LABS: Troponin I 0.17 ng/ml (0.00-0.034)
[2023-03-17 18:16] LABS: Microscopic, Urine URINE MICROSCOPIC (MICROSCOPIC)
[2023-03-17 18:18] LABS: Appearance,Urine CLEAR (Clear); Bilirubin,Urine Negative (Negative); Blood, Urine Negative (Negative); Color,Urine YELLOW (Yellow); Glucose,Urine (UA) 2+ (Negative); Ketones,Urine TRACE (Negative); Leukocyte Esterase,Urine TRACE (Negative); Nitrate,Urine Negative (Negative); PH,Urine 5.5 (5.0-8.5); Protein,Urine Negative (Negative); Urobilinogen,Urine 0.2 EU/dl (0.2)
[2023-03-17 18:32] LABS: Bacteria,Urine Trace /lpf
--- NOTE | 2023-03-17 18:57 | ECG_ITS ---
APPROVED REPORT Exam: Resting ECG HR:70 bpm ECG Measurements Heart Rate 70 AXES QRSd 114 QRS 98 QT 430 T 119 QTc 450 Conclusion ATRIAL FIBRILLATION BORDERLINE RIGHT AXIS DEVIATION [QRS AXIS > 90] MODERATE INTRAVENTRICULAR CONDUCTION DELAY [110+ ms QRS DURATION] ST DEVIATION AND MODERATE T-WAVE ABNORMALITY, CONSIDER LATERAL ISCHEMIA [-0.1+ mV T-WAVE IN I/aVL/V5/V6] ST DEVIATION AND MODERATE T-WAVE ABNORMALITY, CONSIDER INFERIOR ISCHEMIA [-0.1+ mV T-WAVE IN II/aVF] ABNORMAL ECG UNCONFIRMED REPORT Electronically signed by : Kristian Bynum MD 03/18/2023 14:32:17
--- NOTE | 2023-03-17 19:08 | PC.NURSE ---
Updated daughter on current status. Advised we would call back with any changes.
--- NOTE | 2023-03-17 19:54 | PC.NURSE ---
Admitting notified for OBS admission 218 pending if patient becomes SD status
--- NOTE | 2023-03-17 20:17 | PC.NURSE ---
unable to reach daughter to update her on patient,
[2023-03-17 20:24] LABS: Troponin I 0.13 ng/ml (0.00-0.034)
--- NOTE | 2023-03-17 20:27 | EXP.HP ---
History of Present Illness *Admission Date: 03/17/23 *Reason for visit:: hypotensive *History of present illness: This is a 72-year-old female with multiple comorbidities, including COPD on oxygen, CHF, HTN, HLD recently admitted to our facility for sepsis with pneumonia. Patient was discharged 03/16 to her nursing facility. Patient was bounced back for evaluation of low blood pressures. While here echo was obtained showing pulmonary hypertension, severe RV dilatation, ejection fraction of 40 to 45% for which ischemic workup was conducted and patient was started on Bumex 2 mg twice daily. Patient had sepsis with right lung pneumonia and was discharged on cefepime for 7 days after for which they have been compliant. Due to hypotension at [facility] they transferred her here for continued evaluation. Upon arrival patient has no worsening complaints. Admitted for work up. [facility] Disclaimer: The information contained in this section may have been updated after the patient was seen, as this information can be updated by other users. Medical History (Updated 03/18/23 @ 03:58 by Timothy Burch APRN) Anxiety Atrial fibrillation BMI 30.0-30.9,adult CAD in [place] artery Callus of foot Cardiomyopathy Class 2 obesity due to excess calories with body mass index (BMI) of 39.0 to 39.9 in adult Congestive heart failure COPD (chronic obstructive pulmonary disease) Coronary artery disease Depression Diabetes mellitus, type 2 Diabetic foot Fibromyalgia GERD (gastroesophageal reflux disease) Heart failure HFrEF (heart failure with reduced ejection fraction) HLD (hyperlipidemia) HTN (hypertension) Insomnia Iron deficiency anemia Lymphedema Major depressive disorder Non-STEMI (non-ST elevated myocardial infarction) Onychodystrophy Onychomycosis Osteoarthritis Osteoporosis Paresthesia of both lower extremities Pneumonia Pulmonary hypertension Right ventricular dilation Surgical History H/O hernia repair H/O: hysterectomy History of bladder surgery History of coronary artery stent placement Family History Other No significant family history Social History (Updated 03/12/23 @ 14:26 by Phuong Foster, FELIPA) Smoking Status: Former smoker tobacco type: cigarettes packs per day: 2 alcohol intake: never substance use type: denies use current occupational status: retired and disabled Travel in the last 8 weeks: None housing: [facility] lives independently: No [facility]: Yes Review of Systems Review of Systems Review of systems:: pertinent systems reviewed and negative unless documented below Meds Home Medications and Allergies Home Medications Medication Instructions Recorded Confirmed Type ergocalciferol (vitamin D2) 1,250 1,250 mcg PO MO Supplement 08/12/20 03/18/23 History mcg (50,000 unit) capsule rosuvastatin 10 mg tablet 10 mg PO HS Cholesterol 08/12/20 03/18/23 History tiotropium bromide 2.5 1 puff inhalation DAILY Copd 08/12/20 03/18/23 History mcg/actuation mist for inhalation (Spiriva Respimat) acetaminophen 500 mg tablet 1,000 mg PO Q6HP PRN Mild Pain 12/18/22 03/18/23 History (Tylenol Extra Strength) (Scale Score 1-4) albuterol sulfate 90 mcg/actuation 2 puff inhalation Q4HP PRN 12/18/22 03/18/23 History aerosol inhaler shortness of air or wheezing related to copd amitriptyline 25 mg tablet 25 mg PO HS Depression 12/18/22 03/18/23 History apixaban 5 mg tablet (Eliquis) 5 mg PO BID Blood Thinner/DVT 12/18/22 03/18/23 History Prophylaxis aspirin 81 mg capsule 81 mg PO DAILY Heart Health 12/18/22 03/18/23 History budesonide-formoterol HFA 160 2 puff inhalation BIDRT Breathing 12/18/22 03/18/23 History mcg-4.5 mcg/actuation aerosol Problems inhaler (Symbicort) buspirone 10 mg tablet 10 mg PO BID Anxiety 12/18/22 03/18/23 History carvedilol 3.125 mg tablet 3.125 mg PO BID High Blood Pressure 12/18/22 03/18/23 History docusate sodium 100 mg tablet 100 mg PO BID Constipation 12/18/22 03/18/23 History ferrous sulfate 324 mg (65 mg 324 mg PO DAILY anemia 12/18/22 03/18/23 History iron) tablet,delayed release icosapent ethyl 1 gram capsule 1 g PO BID Hyperlipidemia 12/18/22 03/18/23 History (Vascepa) insulin lispro 100 unit/mL 0 sliding scale dose SQ ACHS 12/18/22 03/18/23 History subcutaneous pen Diabetes multivitamin 1 tab PO DAILY Supplement 12/18/22 03/18/23 History nitroglycerin 0.4 mg sublingual 0.4 mg sublingual Q5MINP PRN Chest 12/18/22 03/18/23 History tablet Pain omeprazole 40 mg capsule,delayed 40 mg PO HS Acid Reflux 12/18/22 03/18/23 History release polyethylene glycol 3350 17 gram 17 g PO DAILY Constipation 12/18/22 03/18/23 History oral powder packet (Miralax) trazodone 50 mg tablet 50 mg PO HS Insomnia 12/18/22 03/18/23 History acetaminophen 500 mg tablet 500 mg PO AC Pain 12/19/22 03/18/23 History albuterol sulfate 2.5 mg/3 mL 2.5 mg inhalation Q4HP PRN 12/19/22 03/18/23 History (0.083 %) solution for nebulization shortness of air or wheezing gabapentin 300 mg capsule 300 mg PO BID Pain 12/19/22 03/18/23 History paroxetine HCl 40 mg tablet 40 mg PO HS mood 12/19/22 03/18/23 History hydrocodone 5 mg-acetaminophen 325 1 tab PO Q12HP PRN Breakthrough 01/12/23 03/18/23 History mg tablet Pain, Severe oxymetazoline 0.05 % nasal spray 2 spray intranasal Q12HP PRN Nasal 01/12/23 03/17/23 History (Afrin Sinus (oxymetazoline)) Congestion spironolactone 50 mg tablet 50 mg PO DAILY Fluid 03/12/23 03/18/23 History (Aldactone) bumetanide 1 mg tablet 2 mg PO BIDL Fluid 30 days #0 tabs 03/15/23 03/18/23 Rx clopidogrel 75 mg tablet 75 mg PO DAILY Blood Thinner 03/18/23 03/18/23 History empagliflozin 10 mg tablet 10 mg PO DAILY Diabetes 03/18/23 03/18/23 History (Jardiance) fluticasone fur. 100 mcg-umeclid 1 inh inhalation DAILY Copd 03/18/23 03/18/23 History 62.5 mcg-vilant 25 mcg inhalat.powder (Trelegy Ellipta) sacubitril 24 mg-valsartan 26 mg 1 tab PO BID High Blood Pressure 03/18/23 03/18/23 History tablet (Entresto) New Prescriptions to Start Prescriptions: Allergies Allergy/AdvReac Type Severity Reaction Status Date / Time cephalexin Allergy Verified 03/12/23 10:36 Penicillins Allergy Verified 03/12/23 10:36 Exam Data for Last 24 hours Vital signs and Labs for Last 24 Hours: Temp Pulse Resp BP Pulse Ox O2 Del Method O2 Flow Rate 98.4 F 62 20 104/66 L 93 L Nasal Cannula 3 03/17/23 17:02 03/17/23 20:15 03/17/23 17:27 03/17/23 20:15 03/17/23 20:15 03/17/23 19:00 03/17/23 19:00 Laboratory Results - last 24 hr 03/17/23 17:10: WBC 10.8, RBC 5.02, Hgb 12.8, Hct 40.0, MCV 79.8 L, MCH 25.6 L, MCHC 32.1, RDW 19.8 H, Plt Count 292, MPV 9.1, Neut % (Auto) 80.2 H, Lymph % (Auto) 9.9 L, [place] % (Auto) 8.4, Eos % (Auto) 1.3, Baso % (Auto) 0.3, Neut # (Auto) 8.7 H, Lymph # (Auto) 1.1, [place] # (Auto) 0.9, Eos # (Auto) 0.1, Baso # (Auto) 0.0, Sodium 125 L, Potassium 4.0, Chloride 85 L, Carbon Dioxide 37 H, Anion Gap 7.0, BUN 64 H D, Creatinine 1.70 H D, Estimated Creat Clear 46, Estimated GFR 29 L, Est GFR ( Amer) 36 L D, Glucose 272 H, Lactate 1.1, Calcium 8.2 L, Total Bilirubin 0.4, AST 192 H D, ALT 164 H D, Alkaline Phosphatase 75, Troponin I 0.17 H, Total Protein 6.0 L, Albumin 2.9 L, Globulin 3.1, Albumin/Globulin Ratio 0.9 L 03/17/23 17:13: VBG pH 7.32, VBG pCO2 57.3 H, VBG pO2 63.7 H, VBG HCO3 28.9, VBG Total CO2 30.6 H, VBG O2 Saturation 89.4 H, VBG Base Excess 2.8 H 03/17/23 18:14: Urine Color Yellow, Urine Appearance Clear, Urine pH 5.5, Ur Specific [place] 1.020, Urine Protein Negative, Urine Glucose (UA) 2+, Urine Ketones Trace, Urine Blood Negative, Urine Nitrate Negative, Urine Bilirubin Negative, Urine Urobilinogen 0.2, Ur Leukocyte Esterase Trace, Urine RBC None, Urine WBC 5-10, Ur Squamous Epith Cells 10-20, Urine Bacteria Trace, Hyaline Casts 3-5 03/17/23 19:59: Troponin I 0.13 H I & O for Last 24 hours: Intake & Output 03/14/23 03/15/23 03/16/23 03/17/23 23:59 23:59 23:59 23:59 Output Total 600 / 600 Balance -600 / -600 Weight 98.43 kg Constitutional Constitutional: no acute distress *Routine HEENT Exam Head: Present normocephalic Eye: Present EOMI and PERRL ENT: Present mucous membranes moist *Routine Neck Exam Neck: Present supple; Absent lymphadenopathy *Routine Respiratory Exam Respiratory: Present CTA bilaterally, wheezes and distant breath sounds; Absent respiratory distress *Routine Cardiovascular Exam Cardiovascular: Present RRR *Routine Abdominal Exam Abdominal: Present soft and normoactive bowel sounds; Absent tenderness *Routine Rectal Exam Rectal:: deferred *Routine Genitalia Exam Genitalia:: deferred *Routine Extremities Exam Extremities: Present edema; Absent cyanosis or clubbing Comments: Bilateral lower extremity edema *Routine Skin Exam Skin: Present warm; Absent rash *Routine Neurological Exam Neurological: Present alert and oriented X3 H&P: Result Imaging and Cardiology EKG: Status: image reviewed by me and Preliminary report Assessment and Plan *Assessment and plan (1) Hypotension: Status: Acute Qualifiers: Hypotension type: hypotension due to hypovolemia Qualified Code(s): E86.1 - Hypovolemia Category: Medical Code(s): I95.9 - Hypotension, unspecified (2) TESSIE (acute kidney injury): Status: Acute Category: Medical Code(s): N17.9 - Acute kidney failure, unspecified (3) Azotemia: Status: Acute Category: Medical Code(s): R79.89 - Other specified abnormal findings of blood chemistry (4) Elevated troponin: Status: Acute Category: Medical Code(s): R79.89 - Other specified abnormal findings of blood chemistry (5) Acute hyponatremia: Status: Acute Category: Medical Code(s): E87.1 - Hypo-osmolality and hyponatremia (6) Transaminitis: Status: Acute Category: Medical Code(s): R74.01 - Elevation of levels of liver transaminase levels (7) CHF (congestive heart failure): Status: Acute Qualifiers: Heart failure chronicity: chronic Heart failure type: unspecified Qualified Code(s): I50.9 - Heart failure, unspecified Category: Medical Code(s): I50.9 - Heart failure, unspecified (8) CAD in [place] artery: Status: Acute Category: Medical Code(s): I25.10 - Atherosclerotic heart disease of [place] coronary artery without angina pectoris (9) HTN (hypertension): Status: Acute Qualifiers: Hypertension type: primary hypertension Qualified Code(s): I10 - Essential (primary) hypertension Category: Medical Code(s): I10 - Essential (primary) hypertension (10) HLD (hyperlipidemia): Status: Acute Qualifiers: Hyperlipidemia type: mixed hyperlipidemia Qualified Code(s): E78.2 - Mixed hyperlipidemia Category: Medical Code(s): E78.5 - Hyperlipidemia, unspecified (11) COPD (chronic obstructive pulmonary disease): Status: Acute Qualifiers: COPD type: unspecified COPD Qualified Code(s): J44.9 - Chronic obstructive pulmonary disease, unspecified Category: Medical Code(s): J44.9 - Chronic obstructive pulmonary disease, unspecified Plan 72-year-old female with multiple comorbidities, including COPD on oxygen, CHF, HTN, HLD recently admitted to our facility for sepsis with pneumonia. Patient was discharged 03/16 to her nursing facility. Patient was bounced back for evaluation of low blood pressures. Patient mentions she has been feeling shortness of breath for past 3 to 4 days, she also has associated bilateral lower extremity swelling. She uses 2-3 L nasal cannula at baseline Denied fever chills diarrhea constipation dysuria. On Arrival patient presented hypotensive, labs are consistent with acute TESSIE with hyponatremia, azotemia, noncritical hyperglycemia, mild transaminitis, elevated troponin that is downtrends from prior. Of note, patient was discharged on 2mg Bumex BID. WBC improving. Patient in the course on cefepime. midline in placed. Serial EKG shows no dynamic changes.Findings discussed with ER for admission. Plan as follow: -Hypotensive. Improving after initial bolus TESSIE. azotemia likely secondary to excesive diuresis or poor oral intake: hyponatremia Elevated troponin likely demand ischemia Transaminitis Admit patient for medical service management. 500 cc bolus given at the ER. Levophed was considered but was not given Will continue with gently hydration at 50ml/hr x 1 L Continuous monitoring. Continue cefepime to complete treatment Repeat labs in the morning Monitor for electrolyte imbalance. Replace by protocol Trend serial troponin Monitor liver function -Chronic CHF hold diuretic Strict I's and O's Check PCT level monitor O2 sat. current on 3L. Monitor and replace electrolytes Started on Chronic atrial fibrillation Chronic anticoagulation with Eliquis -Resume home Eliquis Iron deficiency anemia-monitor Diabetes mellitus -Insulin sliding scale Resume home long-acting insulin COPD: Resume home nebulizer regimen DuoNeb every as needed DVT prophylaxis-on Eliquis. on Protonix Full code Rounded on patient after nurse practitioner. Personally examined and interviewed patient. Agree with exam findings and care plan as documented.
[2023-03-17] MEDS: 0.9 % SODIUM CHLORIDE 1000ML 1,000 ML 50 ML IV (23:54)
[2023-03-17] MEDS: PANTOPRAZOLE 40MG TABLET 40 MG PO (23:55)
[2023-03-18] VITALS: BP 115/76; PULSE 62; RESP 17; TEMP 36.6; O2SAT 89
[2023-03-18 00:46] LABS: Troponin I 0.11 ng/ml (0.00-0.034)
[2023-03-18] MEDS: MORPHINE 2MG/ML SYRINGE 2 MG IV ×2 (03:36→21:34)
[2023-03-18 04:00] VITALS: BP 120/71; PULSE 72; RESP 18; TEMP 36.6; O2SAT 90; BMI 37.0
[2023-03-18] MEDS: CEFEPIME 2 GM IV (04:50)
[2023-03-18] MEDS: humaLOG 100 UNITS/ML 3ML VIAL (SSI) SQ ×3 (06:35→20:45)
[2023-03-18 07:34] LABS: Basophils # 0.1 K/mm3 (0-0.2); Basophils % 0.3 % (0.1-2.0); Eosinophils # 0.2 K/mm3 (0.0-0.4); Eosinophils % 1.4 % (0.1-12.0); Hematocrit 43.8 % (37.0-47.0); Hemoglobin 13.3 g/dL (12.2-16.2); Lymphocytes # 1.1 K/mm3 (0.7-4.5); Lymphocytes % 8.4 % (10-50); Mean Corpuscular HGB Conc 30.5 g/dL (31.8-35.4); Mean Corpuscular Hemoglobin 24.9 pg (27.0-31.2); Mean Corpuscular Volume 81.8 fl (81-99); Mean Platelet Volume 8.9 fl (7.4-10.4); Monocytes # 1.1 K/mm3 (0.1-1.0); Monocytes % 8.2 % (1.7-9.3); Neutrophils # 10.9 K/mm3 (1.8-7.8); Neutrophils % 81.6 % (37.0-80.0); Platelet Count 269 K/mm3 (142-424); Red Blood Count 5.35 M/mm3 (4.20-5.40); Red Cell Distribution Width 20.1 % (11.5-17.5); White Blood Count 13.3 K/mm3 (4.8-10.8)
[2023-03-18 07:36] LABS: Chloride 90 mmol/L (98-107); Potassium 4.1 mmoL/L (3.5-5.1); Sodium 130 mmol/L (136-145)
[2023-03-18 07:39] LABS: Alanine Aminotransferase 143 U/L (12-78); Albumin Level 3.2 g/dl (3.5-5.0); Albumin/Globulin Ratio 0.9 (1.1-1.8); Alkaline Phosphatase 87 U/L (38-126); Anion Gap 8.1 mEq/L (5-15); Aspartate Amino Transferase 129 U/L (14-36); Bilirubin,Total 0.5 mg/dl (0.2-1.3); Blood Urea Nitrogen 52 mg/dl (7-17); Calcium 8.5 mg/dl (8.4-10.2); Carbon Dioxide 36 mmol/L (22.0-30.0); Creatinine Clearance Estimated 71 mL/min (50-200); Estimated Glomerular Filt Rate 49 ml/min (>60); GFR (African American) 59 ML/MIN (>60); Globulin 3.4 g/dL (1.3-3.2); Glucose 147 mg/dl (74-100); Total Protein,Serum 6.6 g/dl (6.3-8.2)
[2023-03-18 07:40] LABS: Magnesium 2.2 mg/dl (1.6-2.3)
[2023-03-18 08:00] VITALS: BP 121/61; PULSE 79; RESP 22; TEMP 37.1; O2SAT 90
--- NOTE | 2023-03-18 08:19 | P.PN_ITS ---
Subjective *Date: 03/18/23 *Time: 17:31 Interval history: Patient feeling a small. Pressure showing improvement. Holding Entresto and diuretics. Tolerating p.o. intake. Kidney function showing improvement. Stable on 3-1/2 L. Patient states she feels weak but she is alert and oriented at her baseline Medical Exam Vital signs and Labs for Last 24 Hours: Vital Signs Temp Pulse Pulse Resp BP BP Pulse Ox 03/18/23 06:32 03/18/23 05:00 03/18/23 04:00 97.9 F 72 18 120/71 90 L 03/18/23 03:00 03/18/23 01:00 03/17/23 21:30 03/17/23 23:00 03/18/23 00:00 97.9 F 62 17 115/76 89 L 03/17/23 20:00 98.6 F 79 18 130/78 88 L 03/17/23 20:43 97.8 F 77 16 99/58 L 03/17/23 20:15 62 104/66 L 93 L 03/17/23 20:00 79 86/55 L 93 L 03/17/23 19:45 69 101/61 L 92 L 03/17/23 19:30 70 95/50 L 93 L 03/17/23 19:03 67 107/60 L 92 L 03/17/23 19:00 67 98/51 L 93 L 03/17/23 18:30 70 90/55 L 94 L 03/17/23 18:15 78 97/57 L 93 L 03/17/23 18:00 70 102/55 L 94 L 03/17/23 17:30 64 97/49 L 92 L 03/17/23 17:27 64 20 104/63 L 92 L 03/17/23 17:02 98.4 F 72 20 87/50 L 90 L O2 Del Method O2 Flow Rate 03/18/23 06:32 Nasal Cannula 3.5 03/18/23 05:00 Nasal Cannula 3 03/18/23 04:00 Nasal Cannula 3 03/18/23 03:00 Nasal Cannula 3 03/18/23 01:00 Nasal Cannula 3 03/17/23 21:30 Nasal Cannula 3 03/17/23 23:00 Nasal Cannula 3 03/18/23 00:00 Nasal Cannula 3 03/17/23 20:00 Nasal Cannula 03/17/23 20:43 Nasal Cannula 3 03/17/23 20:15 03/17/23 20:00 03/17/23 19:45 03/17/23 19:30 03/17/23 19:03 03/17/23 19:00 Nasal Cannula 3 03/17/23 18:30 Nasal Cannula 3 03/17/23 18:15 Nasal Cannula 3 03/17/23 18:00 Nasal Cannula 3 03/17/23 17:30 Nasal Cannula 3 03/17/23 17:27 Nasal Cannula 3 03/17/23 17:02 Nasal Cannula 3 Intake and Output 03/17/23 03/18/23 03/18/23 23:59 07:59 15:59 Output Total 600 / 600 1000 / 1000 Balance -600 / -600 -1000 / -1000 Output: Output, Urine Amount 600 / 600 1000 / 1000 Other: Number of Unmeasured Voids 0 Weight 98.43 kg 98.35 kg Patient Weight 03/18/23 23:59 Weight 98.35 kg Laboratory Results - last 24 hr 03/17/23 17:10: WBC 10.8, RBC 5.02, Hgb 12.8, Hct 40.0, MCV 79.8 L, MCH 25.6 L, MCHC 32.1, RDW 19.8 H, Plt Count 292, MPV 9.1, Neut % (Auto) 80.2 H, Lymph % (Auto) 9.9 L, [place] % (Auto) 8.4, Eos % (Auto) 1.3, Baso % (Auto) 0.3, Neut # (Auto) 8.7 H, Lymph # (Auto) 1.1, [place] # (Auto) 0.9, Eos # (Auto) 0.1, Baso # (Auto) 0.0, Sodium 125 L, Potassium 4.0, Chloride 85 L, Carbon Dioxide 37 H, Anion Gap 7.0, BUN 64 H D, Creatinine 1.70 H D, Estimated Creat Clear 46, Estimated GFR 29 L, Est GFR ( Amer) 36 L D, Glucose 272 H, Lactate 1.1, Calcium 8.2 L, Total Bilirubin 0.4, AST 192 H D, ALT 164 H D, Alkaline Phosphatase 75, Troponin I 0.17 H, Total Protein 6.0 L, Albumin 2.9 L, Globulin 3.1, Albumin/Globulin Ratio 0.9 L 03/17/23 17:13: VBG pH 7.32, VBG pCO2 57.3 H, VBG pO2 63.7 H, VBG HCO3 28.9, VBG Total CO2 30.6 H, VBG O2 Saturation 89.4 H, VBG Base Excess 2.8 H 03/17/23 18:14: Urine Color Yellow, Urine Appearance Clear, Urine pH 5.5, Ur Specific [place] 1.020, Urine Protein Negative, Urine Glucose (UA) 2+, Urine Ketones Trace, Urine Blood Negative, Urine Nitrate Negative, Urine Bilirubin Negative, Urine Urobilinogen 0.2, Ur Leukocyte Esterase Trace, Urine RBC None, Urine WBC 5-10, Ur Squamous Epith Cells 10-20, Urine Bacteria Trace, Hyaline Casts 3-5 03/17/23 19:59: Troponin I 0.13 H 03/18/23 00:00: Troponin I 0.11 H 03/18/23 06:45: WBC 13.3 H, RBC 5.35, Hgb 13.3, Hct 43.8, MCV 81.8, MCH 24.9 L, MCHC 30.5 L, RDW 20.1 H, Plt Count 269, MPV 8.9, Neut % (Auto) 81.6 H, Lymph % (Auto) 8.4 L, [place] % (Auto) 8.2, Eos % (Auto) 1.4, Baso % (Auto) 0.3, Neut # (Auto) 10.9 H, Lymph # (Auto) 1.1, [place] # (Auto) 1.1 H, Eos # (Auto) 0.2, Baso # (Auto) 0.1, Sodium 130 L, Potassium 4.1, Chloride 90 L, Carbon Dioxide 36 H, Anion Gap 8.1, BUN 52 H, Creatinine 1.10 H D, Estimated Creat Clear 71, Estimated GFR 49 L, Est GFR ( Amer) 59 D, Glucose 147 H D, Calcium 8.5, Magnesium 2.2, Total Bilirubin 0.5, AST 129 H D, ALT 143 H, Alkaline Phosphatase 87, Total Protein 6.6, Albumin 3.2 L D, Globulin 3.4 H, Albumin/Globulin Ratio 0.9 L I & O for Labs for Last 24 Hours: Intake & Output 03/15/23 03/16/23 03/17/23 03/18/23 23:59 23:59 23:59 23:59 Output Total 600 / 600 1000 / 1000 Balance -600 / -600 -1000 / -1000 Weight 98.43 kg 98.35 kg Constitutional: Present no acute distress, morbidly obese, chronically ill appearing and cooperative Head: Present atraumatic and normocephalic ENT: Present normal exam Respiratory: Present prolonged expiratory phase and diminished air movement; Absent rhonchi, wheezes or crackles Cardiac: Present Reg Rate and Rhythm GI: Present soft and normal bowel sounds; Absent distention or tenderness Extremities: Present normal inspection, full ROM and edema (1+ to knees, significantly improved from admission) Skin: Present intact; Absent erythema Comment:: Stasis dermatitis of lower extremities; legs tender to palpation Neuro: Present Grossly Intact, alert, awake and moves all extremities Comment:: Oriented to self and place Assessment and Plan *Assessment and plan (1) TESSIE (acute kidney injury): Status: Acute Category: Medical Code(s): N17.9 - Acute kidney failure, unspecified (2) Hypotension: Status: Acute Qualifiers: Hypotension type: hypotension due to hypovolemia Qualified Code(s): E86.1 - Hypovolemia Category: Medical Code(s): I95.9 - Hypotension, unspecified (3) Azotemia: Status: Acute Category: Medical Code(s): R79.89 - Other specified abnormal findings of blood chemistry (4) Elevated troponin: Status: Acute Category: Medical Code(s): R79.89 - Other specified abnormal findings of blood chemistry (5) Acute hyponatremia: Status: Acute Category: Medical Code(s): E87.1 - Hypo-osmolality and hyponatremia (6) Transaminitis: Status: Acute Category: Medical Code(s): R74.01 - Elevation of levels of liver transaminase levels (7) CHF (congestive heart failure): Status: Acute Qualifiers: Heart failure chronicity: chronic Heart failure type: unspecified Qualified Code(s): I50.9 - Heart failure, unspecified Category: Medical Code(s): I50.9 - Heart failure, unspecified (8) CAD in [place] artery: Status: Acute Category: Medical Code(s): I25.10 - Atherosclerotic heart disease of [place] coronary artery without angina pectoris (9) HTN (hypertension): Status: Acute Qualifiers: Hypertension type: primary hypertension Qualified Code(s): I10 - Essential (primary) hypertension Category: Medical Code(s): I10 - Essential (primary) hypertension (10) HLD (hyperlipidemia): Status: Acute Qualifiers: Hyperlipidemia type: mixed hyperlipidemia Qualified Code(s): E78.2 - Mixed hyperlipidemia Category: Medical Code(s): E78.5 - Hyperlipidemia, unspecified (11) COPD (chronic obstructive pulmonary disease): Status: Acute Qualifiers: COPD type: unspecified COPD Qualified Code(s): J44.9 - Chronic obstructive pulmonary disease, unspecified Category: Medical Code(s): J44.9 - Chronic obstructive pulmonary disease, unspecified Plan 72-year-old female with multiple comorbidities, including COPD on oxygen, CHF, HTN, HLD recently admitted to our facility for sepsis with pneumonia. Patient was discharged 03/16 to her nursing facility. Patient was bounced back for evaluation of low blood pressures. Patient mentions she has been feeling short ness of breath for past 3 to 4 days, she also has associated bilateral lower extremity swelling. She uses 2-3 L nasal cannula at baseline Denied fever chills diarrhea constipation dysuria. On Arrival patient presented hypotensive, labs are consistent with acute TESSIE with hyponatremia, azotemia, noncritical hyperglycemia, mild transaminitis, elevated troponin that is downtrends from prior. Of note, patient was discharged on 2mg Bumex BID. WBC improving. Patient in the course on cefepime. midline in placed. Serial EKG shows no dynamic changes.Findings discussed with ER for admission. Showing i mprovement in blood pressure this morning with holding medication. Kidney function improving. Continues to require inpatient management. Anticipate discharge in the next day or 2 back to her nursing facility. Problems addressed as follows: -Hypotensive. Improving after initial bolus TESSIE. azotemia likely secondary to excesive diuresis or poor oral intake: hyponatremia Elevated troponin likely demand ischemia Transaminitis Chronic heart failure with preserved ejection fraction, status post left heart cath with 2 stents Chronic atrial fibrillation Blood pressure stable without pressors Continue aspirin 81 mg daily, Plavix 75 mg daily, Lipitor 40 mg nightly, Eliquis 5 mg twice daily. Will initiate metoprolol 12 and half milligrams twice daily. Hold carvedilol and Entresto and diuretics at this time Continue cefepime to complete treatment White cell count 13.3, kidney function improved at 1.1, BUN 52. Electrolytes stable with sodium of 130, potassium 4.1, magnesium 2.2. Repeat CBC, CMP, magnesium ordered for the morning Strict I's and O's Iron deficiency anemia-monitor Diabetes mellitus: -Insulin sliding scale, fingersticks ACHS; A1c well- controlled on recent check, less than 6 COPD: Resume home nebulizer regimen, Trelegy inhaler daily; supplemental oxygen as needed for goal sats greater 90%. Currently on 3-1/2 L Full code Cardiac diet
[2023-03-18] MEDS: TIOTROPIUM 18MCG/PUFF INHALER 1 CAP IH (09:19)
[2023-03-18] MEDS: FLUTICASONE/UMECLIDIN/VILANTER 100/62.5/25MCG INHALER 1 PUFF IH (09:19)
[2023-03-18 09:20] VITALS: O2SAT 90
[2023-03-18] MEDS: DOCUSATE SODIUM 100 MG CAPSULE PO ×2 (09:23→20:42)
[2023-03-18] MEDS: ASPIRIN EC 81MG TABLET 81 MG PO (09:23)
[2023-03-18] MEDS: BUSPIRONE HCL 10 MG TABLET PO ×2 (09:23→20:42)
[2023-03-18] MEDS: APIXABAN 5MG TABLET 5 MG PO ×2 (09:23→20:41)
[2023-03-18] MEDS: CLOPIDOGREL 75MG TAB 75 MG PO (09:23)
[2023-03-18] MEDS: PANTOPRAZOLE 40MG TABLET 40 MG PO (09:25)
[2023-03-18] MEDS: ACETAMINOPHEN 325MG TAB 650 MG PO (09:39)
--- NOTE | 2023-03-18 09:43 | P.CONPHA_ITS ---
Pharmacy Intervention Comments: MEDICATION RECONCILIATION COMPLETE USING MAR FROM [facility].
--- NOTE | 2023-03-18 09:43 | HMH.PHAINT1 ---
Pharmacy Intervention Comments: MEDICATION RECONCILIATION COMPLETE USING MAR FROM [facility].
[2023-03-18 12:11] LABS: POC Glucose,Bedside 160 (70-110)
[2023-03-18 12:11] LABS: POC Glucose,Bedside 174 (70-110)
[2023-03-18 16:00] VITALS: BP 106/66; PULSE 85; RESP 14; TEMP 36.6; O2SAT 91
[2023-03-18] MEDS: CEFEPIME HCL 2 GM in 0.9 % SODIUM CHLORIDE 100 ML IV (16:19)
[2023-03-18] MEDS: MULTIVITAMIN TABLET 1 EACH PO (16:20)
[2023-03-18 16:43] LABS: POC Glucose,Bedside 148 (70-110)
[2023-03-18 20:11] LABS: POC Glucose,Bedside 232 (70-110)
[2023-03-18] MEDS: AMITRIPTYLINE 25MG TABLET 25 MG PO (20:41)
[2023-03-18] MEDS: TRAZODONE 50MG TABLET 50 MG PO (20:42)
[2023-03-18] MEDS: ATORVASTATIN 40MG TABLET 40 MG PO (20:42)
[2023-03-18] MEDS: PARoxetine 20MG TABLET 40 MG PO (20:42)
[2023-03-18] MEDS: METOPROLOL TARTRATE 25MG TABLET 12.5 MG PO (20:44)
[2023-03-19] MEDS: CEFEPIME HCL 2 GM in 0.9 % SODIUM CHLORIDE 100 ML IV (03:35)
[2023-03-19 04:00] VITALS: BP 124/92; PULSE 74; RESP 17; TEMP 36.6; O2SAT 92; BMI 37.0
[2023-03-19] MEDS: FLUTICASONE/UMECLIDIN/VILANTER 100/62.5/25MCG INHALER 1 PUFF IH (05:56)
[2023-03-19] MEDS: TIOTROPIUM 18MCG/PUFF INHALER 1 CAP IH (05:56)
[2023-03-19 06:09] LABS: Basophils % 0.4 % (0.1-2.0); Eosinophils # 0.2 K/mm3 (0.0-0.4); Eosinophils % 1.8 % (0.1-12.0); Hematocrit 41.7 % (37.0-47.0); Hemoglobin 13.3 g/dL (12.2-16.2); Lymphocytes % 9.6 % (10-50); Mean Corpuscular HGB Conc 31.9 g/dL (31.8-35.4); Mean Corpuscular Hemoglobin 25.6 pg (27.0-31.2); Mean Corpuscular Volume 80.2 fl (81-99); Mean Platelet Volume 8.8 fl (7.4-10.4); Monocytes # 0.8 K/mm3 (0.1-1.0); Neutrophils # 8.4 K/mm3 (1.8-7.8); Neutrophils % 80.2 % (37.0-80.0); Platelet Count 217 K/mm3 (142-424); Red Blood Count 5.19 M/mm3 (4.20-5.40); Red Cell Distribution Width 19.5 % (11.5-17.5); White Blood Count 10.5 K/mm3 (4.8-10.8)
[2023-03-19 06:17] LABS: POC Glucose,Bedside 142 (70-110)
--- NOTE | 2023-03-19 06:51 | PC.NURSE ---
Pt has complained of pain one time this shift, treated per mar. Pt has had no other complaints and rested well. Alert to self at baseline. Remains on 3.5L NC O2 sat >90%.
--- NOTE | 2023-03-19 07:31 | EXP.DC.SUM ---
General Admission date:: 03/17/23 Discharge date: 03/19/23 HPI HPI HPI: This is a 72-year-old female with multiple comorbidities, including COPD on oxygen, CHF, HTN, HLD recently admitted to our facility for sepsis with pneumonia. Patient was discharged 03/16 to her nursing facility. Patient was bounced back for evaluation of low blood pressures. While here echo was obtained showing pulmonary hypertension, severe RV dilatation, ejection fraction of 40 to 45% for which ischemic workup was conducted and patient was started on Bumex 2 mg twice daily. Patient had sepsis with right lung pneumonia and was discharged on cefepime for 7 days after for which they have been compliant. Due to [facility] at jail they transferred her here for continued evaluation. Upon arrival patient has no worsening complaints. Admitted for work up. Hospital Course Hospital Course Hospital Course: Patient is a 72-year-old female who [facility] facility presented to hospital due to shortness of breath. Patient has past medical history of hypertension hyperlipidemia diabetes mellitus CAD atrial fibrillation on Eliquis, COPD on 3 L nasal cannula. On Arrival patient presented hypotensive, labs are consistent with acute TESSIE with hyponatremia, azotemia, noncritical hyperglycemia, mild transaminitis, elevated troponin that is downtrends from prior. Of note, patient was discharged on 2mg Bumex BID. WBC improving. Patient in the course on cefepime. midline in placed. Serial EKG shows no dynamic changes. Findings discussed with ER for admission. Showed improvement in blood pressure and kidney function with holding her outpatient medications. Resume diuresis with Bumex. Responding well. Blood pressures have been stable for over 24 hours. Medication adjustments made. Stable to discharge back to nursing facility. Problems addressed as follows: Hypotensive resolved, TESSIE. Resolved hyponatremia, improving Chronic heart failure with preserved ejection fraction, status post left heart cath with 2 stents Chronic atrial fibrillation Blood pressure improved with initiation of gentle hydration and holding medications. Medications were adjusted. Continue carvedilol. Will hold Entresto at discharge. Continue diuresis with 1.5 mg Bumex twice daily. Continue spironolactone. Kidney function is normalized and patient appears euvolemic. Given her right-sided heart failure, needs to continue fluid management with diuretics. Taken for left heart cath on 03/15 with placement of 2 stents. Patient had good results and improved coronary artery blood flow. Will continue dual antiplatelet therapy with aspirin and Plavix. Given her chronic A-fib, continue Eliquis twice daily. Discontinue aspirin after 1 month of triple therapy and continue just Eliquis and Plavix at that time. Will continue pantoprazole for GI prophylaxis in the setting of triple therapy antiplatelet/blood thinner. Follow-up with cardiology as an outpatient. Previous pneumonia, completed cefepime during admission. Midline removed. Chronic hypoxic respiratory failure likely secondary to CHF exacerbation, COPD exacerbation -Recommend continuing with noninvasive positive pressure ventilation. Per her compliance report, patient on auto CPAP with settings of 6-10. Residual AHI controlled at 3.7. Pulmonology recommends increasing her auto CPAP settings to 6-14. Patient would also benefit from outpatient sleep clinic follow-up. Continue supplemental oxygen as needed for goal sats greater 90%. Has been on 2 to 4 L during admission. Wean as tolerated in the jail setting. Diabetes mellitus -Patient's most recent A1c in January was normal at 5.7. Recommend continuing Jardiance for heart failure and diabetes. Would hold on any insulin at this time unless starts having elevated blood sugars above 200 consistently. Discontinued long-acting insulin due to hypoglycemia. COPD: Resume home nebulizer regimen, Trelegy inhaler daily; supplemental oxygen as needed for goal sats greater 90%. Currently on 3-1/2 L Spent 30 minutes in discharge counseling, documentation, chart review, and direct care with patient. Exam Data for Last 24 hours Vital signs and Labs for Last 24 Hours: Temp Pulse Resp BP Pulse Ox O2 Del Method O2 Flow Rate 97.9 F 74 17 124/92 H 92 L Nasal Cannula 3.5 03/19/23 04:00 03/19/23 04:00 03/19/23 04:00 03/19/23 04:00 03/19/23 04:00 03/19/23 06:44 03/19/23 06:44 FiO2 32 03/18/23 23:53 Laboratory Results - last 24 hr 03/18/23 06:05: POC Glucose 160 H 03/18/23 06:45: WBC 13.3 H, RBC 5.35, Hgb 13.3, Hct 43.8, MCV 81.8, MCH 24.9 L, MCHC 30.5 L, RDW 20.1 H, Plt Count 269, MPV 8.9, Neut % (Auto) 81.6 H, Lymph % (Auto) 8.4 L, [place] % (Auto) 8.2, Eos % (Auto) 1.4, Baso % (Auto) 0.3, Neut # (Auto) 10.9 H, Lymph # (Auto) 1.1, [place] # (Auto) 1.1 H, Eos # (Auto) 0.2, Baso # (Auto) 0.1, Sodium 130 L, Potassium 4.1, Chloride 90 L, Carbon Dioxide 36 H, Anion Gap 8.1, BUN 52 H, Creatinine 1.10 H D, Estimated Creat Clear 71, Estimated GFR 49 L, Est GFR ( Amer) 59 D, Glucose 147 H D, Calcium 8.5, Magnesium 2.2, Total Bilirubin 0.5, AST 129 H D, ALT 143 H, Alkaline Phosphatase 87, Total Protein 6.6, Albumin 3.2 L D, Globulin 3.4 H, Albumin/Globulin Ratio 0.9 L 03/18/23 11:15: POC Glucose 174 H 03/18/23 16:23: POC Glucose 148 H 03/18/23 19:59: POC Glucose 232 H 03/19/23 05:40: WBC 10.5, RBC 5.19, Hgb 13.3, Hct 41.7, MCV 80.2 L, MCH 25.6 L, MCHC 31.9, RDW 19.5 H, Plt Count 217, MPV 8.8, Neut % (Auto) 80.2 H, Lymph % (Auto) 9.6 L, [place] % (Auto) 8.0, Eos % (Auto) 1.8, Baso % (Auto) 0.4, Neut # (Auto) 8.4 H, Lymph # (Auto) 1.0, [place] # (Auto) 0.8, Eos # (Auto) 0.2, Baso # (Auto) 0.0 03/19/23 06:06: POC Glucose 142 H I & O for Last 24 hours: Intake & Output 03/16/23 03/17/23 03/18/23 03/19/23 23:59 23:59 23:59 23:59 Intake Total 927 / 927 100 / 100 Output Total 600 / 600 3825 / 3825 600 / 600 Balance -600 / -600 -2898 / -2898 -500 / -500 Weight 98.43 kg 98.35 kg 98.36 kg Constitutional Constitutional: no acute distress, obese, chronically ill appearing and cooperative *Routine HEENT Exam Head: Present normocephalic Eye: Present EOMI and PERRL ENT: Present mucous membranes moist *Routine Neck Exam Neck: Present supple; Absent lymphadenopathy *Routine Respiratory Exam Respiratory: Present prolonged expiratory phase and crackles (minimal in bases); Absent rhonchi or wheezes *Routine Cardiovascular Exam Cardiovascular: Present RRR *Routine Abdominal Exam Abdominal: Present soft and normoactive bowel sounds; Absent tenderness *Routine Rectal Exam Patient deferred: visual exam *Routine Exam Patient deferred: external exam *Routine Extremities Exam Extremities: Present edema (1+ to knees); Absent cyanosis or clubbing Comments: midline removed prior to discharge *Routine Skin Exam Skin: Present warm; Absent rash Comments: Chronic stasis dermatitis in the extremities *Routine Neurological Exam Neurological: Present alert, oriented X3 and moving all extremities; Absent altered mental status Results Data Completed and Pending Labs on day of discharge: Labs from last 24 hours 03/19/23 03/19/23 03/18/23 06:06 05:40 19:59 WBC 10.5 RBC 5.19 Hgb 13.3 Hct 41.7 MCV 80.2 L MCH 25.6 L MCHC 31.9 RDW 19.5 H Plt Count 217 MPV 8.8 Neut % (Auto) 80.2 H Lymph % (Auto) 9.6 L [place] % (Auto) 8.0 Eos % (Auto) 1.8 Baso % (Auto) 0.4 Neut # (Auto) 8.4 H Lymph # (Auto) 1.0 [place] # (Auto) 0.8 Eos # (Auto) 0.2 Baso # (Auto) 0.0 Sodium Potassium Chloride Carbon Dioxide Anion Gap BUN Creatinine Estimated Creat Clear Estimated GFR Est GFR ( Amer) Glucose POC Glucose 142 H 232 H Calcium Magnesium Total Bilirubin AST ALT Alkaline Phosphatase Total Protein Albumin Globulin Albumin/Globulin Ratio 03/18/23 03/18/23 03/18/23 16:23 11:15 06:45 WBC 13.3 H RBC 5.35 Hgb 13.3 Hct 43.8 MCV 81.8 MCH 24.9 L MCHC 30.5 L RDW 20.1 H Plt Count 269 MPV 8.9 Neut % (Auto) 81.6 H Lymph % (Auto) 8.4 L [place] % (Auto) 8.2 Eos % (Auto) 1.4 Baso % (Auto) 0.3 Neut # (Auto) 10.9 H Lymph # (Auto) 1.1 [place] # (Auto) 1.1 H Eos # (Auto) 0.2 Baso # (Auto) 0.1 Sodium 130 L Potassium 4.1 Chloride 90 L Carbon Dioxide 36 H Anion Gap 8.1 BUN 52 H Creatinine 1.10 H D Estimated Creat Clear 71 Estimated GFR 49 L Est GFR ( Amer) 59 D Glucose 147 H D POC Glucose 148 H 174 H Calcium 8.5 Magnesium 2.2 Total Bilirubin 0.5 AST 129 H D ALT 143 H Alkaline Phosphatase 87 Total Protein 6.6 Albumin 3.2 L D Globulin 3.4 H Albumin/Globulin Ratio 0.9 L 03/18/23 06:05 WBC RBC Hgb Hct MCV MCH MCHC RDW Plt Count MPV Neut % (Auto) Lymph % (Auto) [place] % (Auto) Eos % (Auto) Baso % (Auto) Neut # (Auto) Lymph # (Auto) [place] # (Auto) Eos # (Auto) Baso # (Auto) Sodium Potassium Chloride Carbon Dioxide Anion Gap BUN Creatinine Estimated Creat Clear Estimated GFR Est GFR ( Amer) Glucose POC Glucose 160 H Calcium Magnesium Total Bilirubin AST ALT Alkaline Phosphatase Total Protein Albumin Globulin Albumin/Globulin Ratio DS: Diagnosis Discharge Diagnosis (1) Hypotension: Status: Acute Code(s): I95.9 - Hypotension, unspecified Qualifiers: Hypotension type: hypotension due to hypovolemia Qualified Code(s): E86.1 - Hypovolemia (2) TESSIE (acute kidney injury): Status: Acute Code(s): N17.9 - Acute kidney failure, unspecified (3) Azotemia: Status: Acute Code(s): R79.89 - Other specified abnormal findings of blood chemistry (4) Elevated troponin: Status: Acute Code(s): R79.89 - Other specified abnormal findings of blood chemistry (5) Acute hyponatremia: Status: Acute Code(s): E87.1 - Hypo-osmolality and hyponatremia (6) Transaminitis: Status: Acute Code(s): R74.01 - Elevation of levels of liver transaminase levels (7) CHF (congestive heart failure): Status: Acute Code(s): I50.9 - Heart failure, unspecified Qualifiers: Heart failure chronicity: chronic Heart failure type: unspecified Qualified Code(s): I50.9 - Heart failure, unspecified (8) CAD in [place] artery: Status: Acute Code(s): I25.10 - Atherosclerotic heart disease of [place] coronary artery without angina pectoris (9) HTN (hypertension): Status: Acute Code(s): I10 - Essential (primary) hypertension Qualifiers: Hypertension type: primary hypertension Qualified Code(s): I10 - Essential (primary) hypertension (10) HLD (hyperlipidemia): Status: Acute Code(s): E78.5 - Hyperlipidemia, unspecified Qualifiers: Hyperlipidemia type: mixed hyperlipidemia Qualified Code(s): E78.2 - Mixed hyperlipidemia (11) COPD (chronic obstructive pulmonary disease): Status: Acute Code(s): J44.9 - Chronic obstructive pulmonary disease, unspecified Qualifiers: COPD type: unspecified COPD Qualified Code(s): J44.9 - Chronic obstructive pulmonary disease, unspecified Meds Home Medications and Allergies Home Medications Medication Instructions Recorded Confirmed Type ergocalciferol (vitamin D2) 1,250 1,250 mcg PO MO Supplement 08/12/20 03/18/23 History mcg (50,000 unit) capsule rosuvastatin 10 mg tablet 10 mg PO HS Cholesterol 08/12/20 03/18/23 History acetaminophen 500 mg tablet 1,000 mg PO Q6HP PRN Mild Pain 12/18/22 03/18/23 History (Tylenol Extra Strength) (Scale Score 1-4) albuterol sulfate 90 mcg/actuation 2 puff inhalation Q4HP PRN 12/18/22 03/18/23 History aerosol inhaler shortness of air or wheezing related to copd amitriptyline 25 mg tablet 25 mg PO HS Depression 12/18/22 03/18/23 History apixaban 5 mg tablet (Eliquis) 5 mg PO BID Blood Thinner/DVT 12/18/22 03/18/23 History Prophylaxis aspirin 81 mg capsule 81 mg PO DAILY Heart Health 12/18/22 03/18/23 History budesonide-formoterol HFA 160 2 puff inhalation BIDRT Breathing 12/18/22 03/18/23 History mcg-4.5 mcg/actuation aerosol Problems inhaler (Symbicort) buspirone 10 mg tablet 10 mg PO BID Anxiety 12/18/22 03/18/23 History carvedilol 3.125 mg tablet 3.125 mg PO BID High Blood Pressure 12/18/22 03/18/23 History docusate sodium 100 mg tablet 100 mg PO BID Constipation 12/18/22 03/18/23 History ferrous sulfate 324 mg (65 mg 324 mg PO DAILY anemia 12/18/22 03/18/23 History iron) tablet,delayed release icosapent ethyl 1 gram capsule 1 g PO BID Hyperlipidemia 12/18/22 03/18/23 History (Vascepa) insulin lispro 100 unit/mL 0 sliding scale dose SQ ACHS 12/18/22 03/18/23 History subcutaneous pen Diabetes multivitamin 1 tab PO DAILY Supplement 12/18/22 03/18/23 History nitroglycerin 0.4 mg sublingual 0.4 mg sublingual Q5MINP PRN Chest 12/18/22 03/18/23 History tablet Pain omeprazole 40 mg capsule,delayed 40 mg PO HS Acid Reflux 12/18/22 03/18/23 History release polyethylene glycol 3350 17 gram 17 g PO DAILY Constipation 12/18/22 03/18/23 History oral powder packet (Miralax) trazodone 50 mg tablet 50 mg PO HS Insomnia 12/18/22 03/18/23 History acetaminophen 500 mg tablet 500 mg PO AC Pain 12/19/22 03/18/23 History albuterol sulfate 2.5 mg/3 mL 2.5 mg inhalation Q4HP PRN 12/19/22 03/18/23 History (0.083 %) solution for nebulization shortness of air or wheezing gabapentin 300 mg capsule 300 mg PO BID Pain 12/19/22 03/18/23 History paroxetine HCl 40 mg tablet 40 mg PO HS mood 12/19/22 03/18/23 History hydrocodone 5 mg-acetaminophen 325 1 tab PO Q12HP PRN Breakthrough 01/12/23 03/18/23 History mg tablet Pain, Severe oxymetazoline 0.05 % nasal spray 2 spray intranasal Q12HP PRN Nasal 01/12/23 03/17/23 History (Afrin Sinus (oxymetazoline)) Congestion spironolactone 50 mg tablet 50 mg PO DAILY Fluid 03/12/23 03/18/23 History (Aldactone) clopidogrel 75 mg tablet 75 mg PO DAILY Blood Thinner 03/18/23 03/18/23 History fluticasone fur. 100 mcg-umeclid 1 inh inhalation DAILY Copd 03/18/23 03/18/23 History 62.5 mcg-vilant 25 mcg inhalat.powder (Trelegy Ellipta) sacubitril 24 mg-valsartan 26 mg 1 tab PO BID High Blood Pressure 03/18/23 03/18/23 History tablet (Entresto) bumetanide 1 mg tablet 1.5 mg PO BIDL Fluid 30 days #0 03/19/23 03/18/23 Rx tabs empagliflozin 10 mg tablet 10 mg PO DAILY #30 tabs 03/19/23 Rx (Jardiance) fluticasone fur. 100 mcg-umeclid 1 inh inhalation DAILY 30 days #0 03/19/23 Rx 62.5 mcg-vilant 25 mcg ea inhalat.powder (Trelegy Ellipta) New Prescriptions to Start Prescriptions: empagliflozin [Jardiance] Lamin Hemphill Allergies Allergy/AdvReac Type Severity Reaction Status Date / Time cephalexin Allergy Verified 03/12/23 10:36 Penicillins Allergy Verified 03/12/23 10:36 Discharge Plan Disposition Patient Disposition: [facility] Intermediate Care Fac Condition: Fair Discharge Order Discharge Orders: Discharge Order (Routine); Ordered 03/19/23 Ordered By: Lamin Hemphill Follow up Plan Follow up with: Ziggy Hitchcock MD [Staff Physician] - 03/26/23 2:15 pm Prescriptions/Medication Reconciliation: New Trelegy Ellipta 100-62.5-25 mcg Blister With Device 1 inh inhalation DAILY 30 Days Qty: 0 0RF Jardiance 10 mg tablet 10 mg PO DAILY Qty: 30 0RF Continued ergocalciferol (vitamin D2) 1,250 mcg (50,000 unit) capsule 1,250 mcg PO MO Patient Comments: TAKE 1 CAPSULE BY MOUTH EVERY TWO WEEKS (TWICE A MONTH) rosuvastatin 10 mg tablet 10 mg PO HS albuterol sulfate 90 mcg/actuation HFA aerosol inhaler 2 puff INHALATION Q4HP PRN (Reason: shortness of air or wheezing related to copd) carvedilol 3.125 mg tablet 3.125 mg PO BID budesonide-formoterol [Symbicort] 160-4.5 mcg/actuation HFA aerosol inhaler 2 puff INHALATION BIDRT multivitamin Tablet 1 tab PO DAILY trazodone 50 mg tablet 50 mg PO HS polyethylene glycol 3350 [Miralax] 17 gram Powder In Packet 17 g PO DAILY omeprazole 40 mg Capsule,Delayed Release(Dr/Ec) 40 mg PO HS icosapent ethyl [Vascepa] 1 gram Capsule 1 g PO BID amitriptyline 25 mg Tablet 25 mg PO HS buspirone 10 mg Tablet 10 mg PO BID docusate sodium 100 mg Tablet 100 mg PO BID ferrous sulfate 324 mg (65 mg iron) Tablet,Delayed Release (Dr/Ec) 324 mg PO DAILY Eliquis 5 mg Tablet 5 mg PO BID aspirin 81 mg Capsule 81 mg PO DAILY acetaminophen [Tylenol Extra Strength] 500 mg Tablet 1,000 mg PO Q6HP PRN (Reason: Mild Pain (Scale Score 1-4)) nitroglycerin 0.4 mg Tablet, Sublingual 0.4 mg SUBLINGUAL Q5MINP PRN (Reason: Chest Pain) Rx Instructions: do not exceed 3 doses per episode insulin lispro 100 unit/mL Insulin Pen 0 sliding scale dose SQ ACHS Rx Instructions: 101-150 3 UNITS 151-200 4 UNITS 201-250 6 UNITS 251-300 9 UNITS 301-350 12 UNITS 351-400 15 UNITS albuterol sulfate 2.5 mg /3 mL (0.083 %) Solution For Nebulization 2.5 mg inhalation Q4HP PRN (Reason: shortness of air or wheezing) acetaminophen 500 mg Tablet 500 mg PO AC gabapentin 300 mg Capsule 300 mg PO BID paroxetine HCl 40 mg Tablet 40 mg PO HS oxymetazoline [Afrin Sinus (oxymetazoline)] 0.05 % [place],Non-Aerosol 2 spray INTRANASAL Q12HP PRN (Reason: Nasal Congestion) hydrocodone-acetaminophen 5-325 mg tablet 1 tab PO Q12HP PRN (Reason: Breakthrough Pain, Severe) spironolactone [Aldactone] 50 mg Tablet 50 mg PO DAILY clopidogrel 75 mg Tablet 75 mg PO DAILY Entresto 24-26 mg Tablet 1 tab PO BID Trelegy Ellipta 100-62.5-25 mcg Blister With Device 1 inh INHALATION DAILY Changed bumetanide 1 mg tablet 1.5 mg PO BIDL 30 Days Qty: 0 0RF Rx Instructions: 1 mg orally 0800, 1400 daily Discontinued Spiriva Respimat 2.5 mcg/actuation mist 1 puff INHALATION DAILY Jardiance 10 mg tablet 10 mg PO DAILY Problem Reconciliation Problems Reviewed?: Yes Patient Discharge Instructions ACTIVITY: Continue current activity DIET: continue same diet Providers Primary Care Provider: Tone Ward Admit Provider: Lamin Hemphill Attending Provider: Lamin Hemphill
[2023-03-19 08:00] VITALS: BP 147/98; PULSE 69; RESP 17; TEMP 37.2; O2SAT 94
--- NOTE | 2023-03-19 08:14 | SW/DCPLANNER ---
Addendum entered by Elizabeth Ward 03/19/23 13:54: I have notified Lauryn w/ [facility] that patient will return today. Original Note: Patient is currently I[facility] level of care at [facility]. I will continue to follow up w/ Lauryn from [facility] until patient is medically stable for discharge.
[2023-03-19 09:30] LABS: Chloride 97 mmol/L (98-107); Potassium 4.2 mmoL/L (3.5-5.1); Sodium 132 mmol/L (136-145)
[2023-03-19 09:32] LABS: Blood Urea Nitrogen 32 mg/dl (7-17); Creatinine Clearance Estimated 78 mL/min (50-200); Estimated Glomerular Filt Rate 70 ml/min (>60); GFR (African American) 85 ML/MIN (>60)
[2023-03-19 09:33] LABS: Alanine Aminotransferase 106 U/L (12-78); Albumin Level 3.2 g/dl (3.5-5.0); Alkaline Phosphatase 95 U/L (38-126); Anion Gap 7.2 mEq/L (5-15); Aspartate Amino Transferase 76 U/L (14-36); Bilirubin,Total 0.4 mg/dl (0.2-1.3); Calcium 8.9 mg/dl (8.4-10.2); Carbon Dioxide 32 mmol/L (22.0-30.0); Globulin 3.2 g/dL (1.3-3.2); Glucose 146 mg/dl (74-100); Magnesium 2.3 mg/dl (1.6-2.3); Total Protein,Serum 6.4 g/dl (6.3-8.2)
[2023-03-19] MEDS: APIXABAN 5MG TABLET 5 MG PO (10:06)
[2023-03-19] MEDS: ASPIRIN EC 81MG TABLET 81 MG PO (10:06)
[2023-03-19] MEDS: BUSPIRONE HCL 10 MG TABLET PO (10:06)
[2023-03-19] MEDS: DOCUSATE SODIUM 100 MG CAPSULE PO (10:06)
[2023-03-19] MEDS: CLOPIDOGREL 75MG TAB 75 MG PO (10:06)
[2023-03-19] MEDS: ERGOCALCIFEROL 50,000 UNITS (1.25MG) CAPSULE 50000 UNIT PO (10:07)
[2023-03-19] MEDS: PANTOPRAZOLE 40MG TABLET 40 MG PO (10:08)
[2023-03-19] MEDS: METOPROLOL TARTRATE 25MG TABLET 12.5 MG PO (10:10)
[2023-03-19 13:21] LABS: POC Glucose,Bedside 131 (70-110)
--- NOTE | 2023-03-19 14:25 | PC.NURSE ---
Report called to [facility]
== END 2023-03-19 15:34 ==
LOC: ER 19:06 → 2ND 19:43 → ICU 22:48
PROVIDERS: Nurse Practitioner Family; Admitting Provider Internal Medicine Adolescent Medicine; Emergency Provider Emergency Medicine; PCP Internal Medicine; Visit Provider Internal Medicine Adolescent Medicine
DX: N17.9 Acute kidney failure, unspecified (principal); E86.1 Hypovolemia; R79.89 Other specified abnormal findings of blood chemistry; E87.1 Hypo-osmolality and hyponatremia; R74.01 Elevation of levels of liver transaminase levels; I50.22 Chronic systolic (congestive) heart failure; I25.10 Atherosclerotic heart disease of native coronary artery without angina pectoris; I11.0 Hypertensive heart disease with heart failure; E78.2 Mixed hyperlipidemia; J44.9 Chronic obstructive pulmonary disease, unspecified; Z99.81 Dependence on supplemental oxygen; I25.2 Old myocardial infarction; F17.210 Nicotine dependence, cigarettes, uncomplicated; Z79.899 Other long term (current) drug therapy; Z79.4 Long term (current) use of insulin; Z79.01 Long term (current) use of anticoagulants; R06.02 Shortness of breath; I48.20 Chronic atrial fibrillation, unspecified; Z95.5 Presence of coronary angioplasty implant and graft; J96.10 Chronic respiratory failure, unspecified whether with hypoxia or hypercapnia
CPT/HCPCS: 36415; 51702; 80053; 81001; 82803; 82962; 83605; 83735; 84484; 85025; 87040; 87086; 93005; 94640; 94760; 99291; G0378

== ENCOUNTER 2023-03-26 15:33 | Emergency (ER) | payer MEDICARE, SELFPAY ==
[2023-03-26 15:34] VITALS: BP 137/67; PULSE 89; RESP 18; TEMP 36.7; O2SAT 97; BMI 34.3
--- NOTE | 2023-03-26 16:42 | PC.NURSE ---
DR CHOW AT BEDSIDE
[2023-03-26 17:28] LABS: Basophils # 0.1 K/mm3 (0-0.2); Basophils % 0.4 % (0.1-2.0); Eosinophils # 0.2 K/mm3 (0.0-0.4); Eosinophils % 1.6 % (0.1-12.0); Hematocrit 39.6 % (37.0-47.0); Lymphocytes # 1.9 K/mm3 (0.7-4.5); Lymphocytes % 14.8 % (10-50); Mean Corpuscular HGB Conc 32.8 g/dL (31.8-35.4); Mean Corpuscular Hemoglobin 26.4 pg (27.0-31.2); Mean Corpuscular Volume 80.4 fl (81-99); Mean Platelet Volume 9.2 fl (7.4-10.4); Monocytes # 0.7 K/mm3 (0.1-1.0); Neutrophils # 10.3 K/mm3 (1.8-7.8); Neutrophils % 78.3 % (37.0-80.0); Platelet Count 474 K/mm3 (142-424); Red Blood Count 4.92 M/mm3 (4.20-5.40); Red Cell Distribution Width 20.1 % (11.5-17.5); White Blood Count 13.1 K/mm3 (4.8-10.8)
[2023-03-26 17:45] LABS: Chloride 89 mmol/L (98-107); Potassium 5.2 mmoL/L (3.5-5.1); Sodium 132 mmol/L (136-145)
[2023-03-26 17:48] LABS: Blood Urea Nitrogen 26 mg/dl (7-17); Creatinine Clearance Estimated 72 mL/min (50-200); Estimated Glomerular Filt Rate 70 ml/min (>60); GFR (African American) 85 ML/MIN (>60)
[2023-03-26 17:49] LABS: Activated Partial Thrombo Time 27.6 seconds (22.8-30.6); Calcium 9.5 mg/dl (8.4-10.2); Glucose 181 mg/dl (74-100); INR 1.03 (0.9-1.1); Prothrombin Time 11.1 seconds (10.1-12.5)
[2023-03-26 17:56] LABS: Anion Gap 10.2 mEq/L (5-15); Carbon Dioxide 38 mmol/L (22.0-30.0)
--- NOTE | 2023-03-26 18:00 | PC.NURSE ---
Updated Ashley at [facility] that we are waiting on lab results at this time
--- NOTE | 2023-03-26 18:19 | PC.NURSE ---
Pt brief changed. Pt provided with coffee and snack. No other needs voiced at this time and call light within reach.
--- NOTE | 2023-03-26 18:22 | ED_ITS ---
Discharge Plan Disposition Patient Disposition: Home, Self-Care Condition: Fair Chief Complaint: Epistaxis Prescriptions Prescriptions: No Action ergocalciferol (vitamin D2) 1,250 mcg (50,000 unit) capsule 1,250 mcg PO MO Patient Comments: TAKE 1 CAPSULE BY MOUTH EVERY TWO WEEKS (TWICE A MONTH) rosuvastatin 10 mg tablet 10 mg PO HS albuterol sulfate 90 mcg/actuation HFA aerosol inhaler 2 puff INHALATION Q4HP PRN (Reason: shortness of air or wheezing related to copd) carvedilol 3.125 mg tablet 3.125 mg PO BID budesonide-formoterol [Symbicort] 160-4.5 mcg/actuation HFA aerosol inhaler 2 puff INHALATION BIDRT multivitamin Tablet 1 tab PO DAILY trazodone 50 mg tablet 50 mg PO HS polyethylene glycol 3350 [Miralax] 17 gram Powder In Packet 17 g PO DAILY omeprazole 40 mg Capsule,Delayed Release(Dr/Ec) 40 mg PO HS icosapent ethyl [Vascepa] 1 gram Capsule 1 g PO BID amitriptyline 25 mg Tablet 25 mg PO HS buspirone 10 mg Tablet 10 mg PO BID docusate sodium 100 mg Tablet 100 mg PO BID ferrous sulfate 324 mg (65 mg iron) Tablet,Delayed Release (Dr/Ec) 324 mg PO DAILY Eliquis 5 mg Tablet 5 mg PO BID aspirin 81 mg Capsule 81 mg PO DAILY acetaminophen [Tylenol Extra Strength] 500 mg Tablet 1,000 mg PO Q6HP PRN (Reason: Mild Pain (Scale Score 1-4)) nitroglycerin 0.4 mg Tablet, Sublingual 0.4 mg SUBLINGUAL Q5MINP PRN (Reason: Chest Pain) Rx Instructions: do not exceed 3 doses per episode insulin lispro 100 unit/mL Insulin Pen 0 sliding scale dose SQ ACHS Rx Instructions: 101-150 3 UNITS 151-200 4 UNITS 201-250 6 UNITS 251-300 9 UNITS 301-350 12 UNITS 351-400 15 UNITS albuterol sulfate 2.5 mg /3 mL (0.083 %) Solution For Nebulization 2.5 mg inhalation Q4HP PRN (Reason: shortness of air or wheezing) acetaminophen 500 mg Tablet 500 mg PO AC gabapentin 300 mg Capsule 300 mg PO BID paroxetine HCl 40 mg Tablet 40 mg PO HS oxymetazoline [Afrin Sinus (oxymetazoline)] 0.05 % [place],Non-Aerosol 2 spray INTRANASAL Q12HP PRN (Reason: Nasal Congestion) hydrocodone-acetaminophen 5-325 mg tablet 1 tab PO Q12HP PRN (Reason: Breakthrough Pain, Severe) spironolactone [Aldactone] 50 mg Tablet 50 mg PO DAILY clopidogrel 75 mg Tablet 75 mg PO DAILY Entresto 24-26 mg Tablet 1 tab PO BID Trelegy Ellipta 100-62.5-25 mcg Blister With Device 1 inh INHALATION DAILY Trelegy Ellipta 100-62.5-25 mcg Blister With Device 1 inh inhalation DAILY 30 Days Qty: 0 0RF bumetanide 1 mg tablet 1.5 mg PO BIDL 30 Days Qty: 0 0RF Rx Instructions: 1 mg orally 0800, 1400 daily Jardiance 10 mg tablet 10 mg PO DAILY Qty: 30 0RF Referrals Follow up/Referrals: Davon Stewart MD [Physician] - See instructions (CALL TO MAKE AN APPOINTMENT) Libby Christensen MD [Emergency Provider] - See instructions Activity Restrictions/Add. Instructions Additional Instructions/Restrictions: . Follow-up with graduate research assistant as soon as possible. Clinical Impressions Clinical Impression: Acute anterior epistaxis, Epistaxis Instructions Patient Instructions: DI for Nosebleed Discharge ED Provider: Libby Christensen General Adult HPI General Chief complaint: Epistaxis Stated complaint: EPISTAXIS Time Seen by Provider: 03/26/23 15:43 Mode of Arrival: EMS Source of Information: Patient Limitations: No Limitations Description of Symptoms (Recalled from ER Triage Doc. by RN): PT BROUGHT IN VIA EMS FOR ONGOING EPISTAXIS ALL DAY. PT WEARS 02 AT 3.5L/NC. PT ON ELIQUIS AND ASA DAILY History of Present Illness HPI narrative: 72-year-old female with previous medical history of atrial fibrillation on antic oagulation, coronary artery disease, COPD, prior episodes of anemia requiring transfusion, CHF, diabetes, pulmonary hypertension, presenting with 3 months of increasingly frequent episodes of epistaxis. For the past few weeks patient says she has had epistaxis every night and today she had an episode of epistaxis during the day. She states these almost always resolved with external pressure and almost always come from the left nare concerning for an anterior nosebleed but she has not seen an ENT doctor for this in the past few months. No known triggers of this. She has not been having chest pain, lightheadedness, severe fatigue, or other concerns. Related Data Home Medications Medication Instructions Recorded Confirmed ergocalciferol (vitamin D2) 1,250 1,250 mcg PO MO Supplement 08/12/20 03/18/23 mcg (50,000 unit) capsule rosuvastatin 10 mg tablet 10 mg PO HS Cholesterol 08/12/20 03/18/23 acetaminophen 500 mg tablet 1,000 mg PO Q6HP PRN Mild Pain 12/18/22 03/18/23 (Tylenol Extra Strength) (Scale Score 1-4) albuterol sulfate 90 mcg/actuation 2 puff inhalation Q4HP PRN 12/18/22 03/18/23 aerosol inhaler shortness of air or wheezing related to copd amitriptyline 25 mg tablet 25 mg PO HS Depression 12/18/22 03/18/23 apixaban 5 mg tablet (Eliquis) 5 mg PO BID Blood Thinner/DVT 12/18/22 03/18/23 Prophylaxis aspirin 81 mg capsule 81 mg PO DAILY Heart Health 12/18/22 03/18/23 budesonide-formoterol HFA 160 2 puff inhalation BIDRT Breathing 12/18/22 03/18/23 mcg-4.5 mcg/actuation aerosol Problems inhaler (Symbicort) buspirone 10 mg tablet 10 mg PO BID Anxiety 12/18/22 03/18/23 carvedilol 3.125 mg tablet 3.125 mg PO BID High Blood Pressure 12/18/22 03/18/23 docusate sodium 100 mg tablet 100 mg PO BID Constipation 12/18/22 03/18/23 ferrous sulfate 324 mg (65 mg 324 mg PO DAILY anemia 12/18/22 03/18/23 iron) tablet,delayed release icosapent ethyl 1 gram capsule 1 g PO BID Hyperlipidemia 12/18/22 03/18/23 (Vascepa) insulin lispro 100 unit/mL 0 sliding scale dose SQ ACHS 12/18/22 03/18/23 subcutaneous pen Diabetes multivitamin 1 tab PO DAILY Supplement 12/18/22 03/18/23 nitroglycerin 0.4 mg sublingual 0.4 mg sublingual Q5MINP PRN Chest 12/18/22 03/18/23 tablet Pain omeprazole 40 mg capsule,delayed 40 mg PO HS Acid Reflux 12/18/22 03/18/23 release polyethylene glycol 3350 17 gram 17 g PO DAILY Constipation 12/18/22 03/18/23 oral powder packet (Miralax) trazodone 50 mg tablet 50 mg PO HS Insomnia 12/18/22 03/18/23 acetaminophen 500 mg tablet 500 mg PO AC Pain 12/19/22 03/18/23 albuterol sulfate 2.5 mg/3 mL 2.5 mg inhalation Q4HP PRN 12/19/22 03/18/23 (0.083 %) solution for nebulization shortness of air or wheezing gabapentin 300 mg capsule 300 mg PO BID Pain 12/19/22 03/18/23 paroxetine HCl 40 mg tablet 40 mg PO HS mood 12/19/22 03/18/23 hydrocodone 5 mg-acetaminophen 325 1 tab PO Q12HP PRN Breakthrough 01/12/23 03/18/23 mg tablet Pain, Severe oxymetazoline 0.05 % nasal spray 2 spray intranasal Q12HP PRN Nasal 01/12/23 03/17/23 (Afrin Sinus (oxymetazoline)) Congestion spironolactone 50 mg tablet 50 mg PO DAILY Fluid 03/12/23 03/18/23 (Aldactone) clopidogrel 75 mg tablet 75 mg PO DAILY Blood Thinner 03/18/23 03/18/23 fluticasone fur. 100 mcg-umeclid 1 inh inhalation DAILY Copd 03/18/23 03/18/23 62.5 mcg-vilant 25 mcg inhalat.powder (Trelegy Ellipta) sacubitril 24 mg-valsartan 26 mg 1 tab PO BID High Blood Pressure 03/18/23 03/18/23 tablet (Entresto) Previous Rx's Medication Instructions Recorded bumetanide 1 mg tablet 1.5 mg PO BIDL Fluid 30 days #0 03/19/23 tabs empagliflozin 10 mg tablet 10 mg PO DAILY #30 tabs 03/19/23 (Jardiance) fluticasone fur. 100 mcg-umeclid 1 inh inhalation DAILY 30 days #0 03/19/23 62.5 mcg-vilant 25 mcg ea inhalat.powder (Trelegy Ellipta) Allergies Allergy/AdvReac Type Severity Reaction Status Date / Time cephalexin Allergy Verified 03/12/23 10:36 Penicillins Allergy Verified 03/12/23 10:36 PFSH [facility] Disclaimer: The information contained in this section may have been updated after the patient was seen, as this information can be updated by other users. Medical History Anxiety Atrial fibrillation BMI 30.0-30.9,adult CAD in [place] artery Callus of foot Cardiomyopathy Class 2 obesity due to excess calories with body mass index (BMI) of 39.0 to 39.9 in adult Congestive heart failure COPD (chronic obstructive pulmonary disease) Coronary artery disease Depression Diabetes mellitus, type 2 Diabetic foot Fibromyalgia GERD (gastroesophageal reflux disease) Heart failure HFrEF (heart failure with reduced ejection fraction) HLD (hyperlipidemia) HTN (hypertension) Insomnia Iron deficiency anemia Lymphedema Major depressive disorder Non-STEMI (non-ST elevated myocardial infarction) Onychodystrophy Onychomycosis Osteoarthritis Osteoporosis Paresthesia of both lower extremities Pneumonia Pulmonary hypertension Right ventricular dilation Surgical History H/O hernia repair H/O: hysterectomy History of bladder surgery History of coronary artery stent placement Family History Other No significant family history Social History Smoking Status: Former smoker tobacco type: cigarettes packs per day: 2 alcohol intake: never substance use type: denies use current occupational status: retired and disabled Travel in the last 8 weeks: None housing: shelter lives independently: No shelter: Yes ROS Obtained: Yes All systems reviewed & no additional complaints except as documented Physical Exam General General appearance: alert and in no apparent distress Head Head exam: atraumatic, normocephalic and normal inspection Eye Eye exam: Present normal appearance, PERRL and EOMI ENT ENT exam: Present normal oropharynx, mucous membranes moist, TM's normal bilaterally, normal external ear exam and other (Scant dried blood in the left nare. No large clots or active bleeding) Neck Neck exam: Present normal inspection, full ROM and trachea midline; Absent meningismus or lymphadenopathy Chest Chest inspection: Present normal inspection and symmetric chest wall rise; A bsent tenderness Respiratory Respiratory exam: Present normal lung sounds bilaterally; Absent respiratory distress Cardiovascular Cardiovascular exam: Present regular rate and normal rhythm; Absent JVD Abdominal Exam Abdominal exam: Present soft and normal bowel sounds; Absent distention, tenderness or guarding Extremities Exam Extremities exam: Present full ROM, normal capillary refill and other (Edema of the bilateral lower extremities which patient says is at her baseline and does not appear to be acutely infected or other concerns); Absent calf tenderness Back Exam Back exam: Present normal inspection; Absent tenderness Neurological Exam Neurological exam: Present alert and oriented X3 Psychiatric Psychiatric exam: Present normal affect and normal mood Skin Skin exam: Present warm, dry, intact and normal color Lymphatic Lymphatic Findings: no adenopathy Medical Decision Making Tj Inquiry Pt receiving controlled substance: No Vital Signs: 03/26/23 15:34 Temperature 98.0 F Temperature Source Oral Pulse Rate [Radial] 89 Respiratory Rate 18 Blood Pressure [Right Arm] 137/67 Blood Pressure Mean [Right Arm] 90 Blood Pressure Source [Right Arm] Automatic Cuff Blood Pressure Position [Right Arm] Sitting 02 Sat by Pulse Oximetry 97 Oxygen Delivery Method Nasal Cannula Oxygen Flow Rate (LPM) 3.5 Lab Data Lab Results 03/26/23 17:15: WBC 13.1 H, RBC 4.92, Hgb 13.0, Hct 39.6, MCV 80.4 L, MCH 26.4 L , MCHC 32.8, RDW 20.1 H, Plt Count 474 H, MPV 9.2, Neut % (Auto) 78.3, Lymph % (Auto) 14.8, [place] % (Auto) 5.0, Eos % (Auto) 1.6, Baso % (Auto) 0.4, Neut # (Auto) 10.3 H, Lymph # (Auto) 1.9, [place] # (Auto) 0.7, Eos # (Auto) 0.2, Baso # (Auto) 0.1, PT 11.1, INR 1.03, APTT 27.6, Sodium 132 L, Potassium 5.2 H, Chlorid e 89 L, Carbon Dioxide 38 H, Anion Gap 10.2, BUN 26 H, Creatinine 0.80, Estimated Creat Clear 72, Estimated GFR 70, Est GFR ( Amer) 85, Glucose 181 H, Calcium 9.5 03/26/23 17:15 03/26/23 17:15 Orders (Tests/Meds): ED MEDICATIONS Generic Name Dose Route Start Last Admin Trade Name Justyna PRN Reason Stop Dose Admin Sodium Chloride 10 ml 03/26/23 17:17 Sodium Chloride 0.9% 10ml Flush Syringe IV 04/25/23 17:16 NEEDED PRN Maintain IV Site ORDERS Category Date Time Status Type and Screen Stat BBK 03/26/23 17:15 Received BMP [Basic Metabolic Panel] Stat Lab 03/26/23 17:15 Completed CBC [Complete Blood Count Auto Diff] Stat Lab 03/26/23 17:15 Completed PT/INR [Prothrombin Time INR] Stat Lab 03/26/23 17:15 Completed PTT [Activated Partial Thrombo Time] Stat Lab 03/26/23 17:15 Completed Medical Decision Narrative: Considered that patient's epistaxis may be due to minor trauma, AVM, exacerbated by anticoagulation for her atrial fibrillation, and may have led to anemia requiring blood transfusion so after discussion with patient, obtained laboratory evaluation which I independently reviewed and interpreted and showed no signs of anemia, no thrombocytopenia to explain this, no other concerns. I did discuss with her that her blood thinners likely contributing to this but based on risks and benefits, and patient's ongoing atrial fibrillation she should continue her anticoagulation as she is not currently anemic. Provided referral to ENT and patient understands instructions and is appropriate for discharge at this time. Critical Care Critical Care Time Critical Care Time: No
--- NOTE | 2023-03-26 18:22 | PC.NURSE ---
DR CHOW AT BEDSIDE TO UPDATE PT ON POC
[2023-03-26 19:01] VITALS: BP 170/96; PULSE 64; O2SAT 89
[2023-03-26 19:18] VITALS: BP 130/82; PULSE 76; O2SAT 77
--- NOTE | 2023-03-26 19:44 | PC.NURSE ---
EMS called for transport at 1936hrs
[2023-03-26 20:06] VITALS: BP 130/82; PULSE 62; RESP 20; TEMP 36.7; O2SAT 94
== END 2023-03-26 20:08 | disposition home or self-care (01) ==
PROVIDERS: Emergency Provider Emergency Medicine
DX: R04.0 Epistaxis (principal); I48.91 Unspecified atrial fibrillation; I25.10 Atherosclerotic heart disease of native coronary artery without angina pectoris; J44.9 Chronic obstructive pulmonary disease, unspecified; D64.9 Anemia, unspecified; I11.0 Hypertensive heart disease with heart failure; I50.20 Unspecified systolic (congestive) heart failure; E11.9 Type 2 diabetes mellitus without complications; I27.20 Pulmonary hypertension, unspecified; I42.9 Cardiomyopathy, unspecified; I25.2 Old myocardial infarction; E78.5 Hyperlipidemia, unspecified; K21.9 Gastro-esophageal reflux disease without esophagitis; Z87.891 Personal history of nicotine dependence
CPT/HCPCS: 80048; 85025; 85610; 85730; 86850; 99285

== ENCOUNTER 2023-03-28 02:25 | Emergency (ER) | payer MEDICARE, SELFPAY ==
[2023-03-28] VITALS (19 sets, daily range): BP systolic 97–140; BP diastolic 56–97; PULSE 65–96; RESP 16–20; TEMP 36.6–36.8; O2SAT 93–100; BMI 36.2
[2023-03-28] MEDS: ONDANSETRON 4MG/2ML VIAL 4 MG IV (02:49)
[2023-03-28] MEDS: MORPHINE 4MG/ML SYRINGE 4 MG IV (02:49)
[2023-03-28 02:59] LABS: Basophils # 0.1 K/mm3 (0-0.2); Basophils % 0.7 % (0.1-2.0); Eosinophils # 0.3 K/mm3 (0.0-0.4); Eosinophils % 2.6 % (0.1-12.0); Hematocrit 40.2 % (37.0-47.0); Hemoglobin 12.3 g/dL (12.2-16.2); Lymphocytes # 2.6 K/mm3 (0.7-4.5); Lymphocytes % 19.3 % (10-50); Mean Corpuscular HGB Conc 30.6 g/dL (31.8-35.4); Mean Corpuscular Hemoglobin 25.5 pg (27.0-31.2); Mean Corpuscular Volume 83.5 fl (81-99); Mean Platelet Volume 8.5 fl (7.4-10.4); Monocytes # 0.9 K/mm3 (0.1-1.0); Monocytes % 6.6 % (1.7-9.3); Neutrophils # 9.4 K/mm3 (1.8-7.8); Neutrophils % 70.9 % (37.0-80.0); Platelet Count 520 K/mm3 (142-424); Red Blood Count 4.82 M/mm3 (4.20-5.40); Red Cell Distribution Width 20.7 % (11.5-17.5); White Blood Count 13.3 K/mm3 (4.8-10.8)
[2023-03-28 03:09] LABS: Activated Partial Thrombo Time 26.6 seconds (22.8-30.6); INR 1.06 (0.9-1.1); Prothrombin Time 11.4 seconds (10.1-12.5)
[2023-03-28 03:20] LABS: Alanine Aminotransferase 29 U/L (12-78); Albumin Level 3.6 g/dl (3.5-5.0); Albumin/Globulin Ratio 1.2 (1.1-1.8); Alkaline Phosphatase 53 U/L (38-126); Anion Gap 8.3 mEq/L (5-15); Aspartate Amino Transferase 48 U/L (14-36); Bilirubin,Total 0.7 mg/dl (0.2-1.3); Blood Urea Nitrogen 25 mg/dl (7-17); Calcium 9.2 mg/dl (8.4-10.2); Carbon Dioxide 37 mmol/L (22.0-30.0); Chloride 93 mmol/L (98-107); Creatinine Clearance Estimated 76 mL/min (50-200); Estimated Glomerular Filt Rate 70 ml/min (>60); GFR (African American) 85 ML/MIN (>60); Globulin 3.1 g/dL (1.3-3.2); Glucose 196 mg/dl (74-100); Potassium 5.3 mmoL/L (3.5-5.1); Sodium 133 mmol/L (136-145); Total Protein,Serum 6.7 g/dl (6.3-8.2)
--- NOTE | 2023-03-28 03:41 | HMH.EDGENADL ---
Discharge Plan Disposition Patient Disposition: Xfer [facility] Prescriptions Prescriptions: New doxycycline hyclate 100 mg capsule 100 mg PO BID 5 Days Qty: 10 0RF No Action ergocalciferol (vitamin D2) 1,250 mcg (50,000 unit) capsule 1,250 mcg PO MO Patient Comments: TAKE 1 CAPSULE BY MOUTH EVERY TWO WEEKS (TWICE A MONTH) rosuvastatin 10 mg tablet 10 mg PO HS albuterol sulfate 90 mcg/actuation HFA aerosol inhaler 2 puff INHALATION Q4HP PRN (Reason: shortness of air or wheezing related to copd) carvedilol 3.125 mg tablet 3.125 mg PO BID budesonide-formoterol [Symbicort] 160-4.5 mcg/actuation HFA aerosol inhaler 2 puff INHALATION BIDRT multivitamin Tablet 1 tab PO DAILY trazodone 50 mg tablet 50 mg PO HS polyethylene glycol 3350 [Miralax] 17 gram Powder In Packet 17 g PO DAILY omeprazole 40 mg Capsule,Delayed Release(Dr/Ec) 40 mg PO HS icosapent ethyl [Vascepa] 1 gram Capsule 1 g PO BID amitriptyline 25 mg Tablet 25 mg PO HS buspirone 10 mg Tablet 10 mg PO BID docusate sodium 100 mg Tablet 100 mg PO BID ferrous sulfate 324 mg (65 mg iron) Tablet,Delayed Release (Dr/Ec) 324 mg PO DAILY Eliquis 5 mg Tablet 5 mg PO BID aspirin 81 mg Capsule 81 mg PO DAILY acetaminophen [Tylenol Extra Strength] 500 mg Tablet 1,000 mg PO Q6HP PRN (Reason: Mild Pain (Scale Score 1-4)) nitroglycerin 0.4 mg Tablet, Sublingual 0.4 mg SUBLINGUAL Q5MINP PRN (Reason: Chest Pain) Rx Instructions: do not exceed 3 doses per episode insulin lispro 100 unit/mL Insulin Pen 0 sliding scale dose SQ ACHS Rx Instructions: 101-150 3 UNITS 151-200 4 UNITS 201-250 6 UNITS 251-300 9 UNITS 301-350 12 UNITS 351-400 15 UNITS albuterol sulfate 2.5 mg /3 mL (0.083 %) Solution For Nebulization 2.5 mg inhalation Q4HP PRN (Reason: shortness of air or wheezing) acetaminophen 500 mg Tablet 500 mg PO AC gabapentin 300 mg Capsule 300 mg PO BID paroxetine HCl 40 mg Tablet 40 mg PO HS oxymetazoline [Afrin Sinus (oxymetazoline)] 0.05 % [place],Non-Aerosol 2 spray INTRANASAL Q12HP PRN (Reason: Nasal Congestion) hydrocodone-acetaminophen 5-325 mg tablet 1 tab PO Q12HP PRN (Reason: Breakthrough Pain, Severe) spironolactone [Aldactone] 50 mg Tablet 50 mg PO DAILY clopidogrel 75 mg Tablet 75 mg PO DAILY Entresto 24-26 mg Tablet 1 tab PO BID Trelegy Ellipta 100-62.5-25 mcg Blister With Device 1 inh INHALATION DAILY Trelegy Ellipta 100-62.5-25 mcg Blister With Device 1 inh inhalation DAILY 30 Days Qty: 0 0RF bumetanide 1 mg tablet 1.5 mg PO BIDL 30 Days Qty: 0 0RF Rx Instructions: 1 mg orally 0800, 1400 daily Jardiance 10 mg tablet 10 mg PO DAILY Qty: 30 0RF Referrals Follow up/Referrals: Provider,Referral, MD [Primary Care Provider] - See instructions Activity Restrictions/Add. Instructions Additional Instructions/Restrictions: Hold blood thinner until 03/31, Sunday. Start taking doxycycline and take for total of 5 days twice daily. Call to make an appointment with ENT on Sunday, 04/02 to have nasal packing removed. Dr. Morales is the physician who saw you today with otolaryngology (ENT). Call your family doctor to establish care for this visit to the emergency department and schedule follow-up within 48 hours to ensure improvement. If you have any worsening of your condition or any other concerning signs or symptoms, return to the emergency department or your primary care doctor for further evaluation. Clinical Impressions Clinical Impression: Acute anterior epistaxis Instructions Patient Instructions: DI for Nosebleed Discharge ED Provider: Kyrie Lara General Adult HPI <Alvarez Gibbs MD - Last Filed: 03/28/23 07:33> General Chief complaint: Epistaxis Stated complaint: nosebleed Time Seen by Provider: 03/28/23 02:30 Mode of Arrival: EMS Source of Information: EMS Limitations: No Limitations Description of Symptoms (Recalled from ER Triage Doc. by RN): longterm reports nose bleed that started @ 9pm last night. pt was seen in er on 03/26 for same problem History of Present Illness HPI narrative: 72-year-old female with history of atrial fibrillation on Eliquis, hypertension hyperlipidemia pulmonary hypertension heart failure chronic hypoxemic respiratory failure etc presents with epistaxis. She reports that nosebleed has been going since 9 PM. She was seen here yesterday for the same issue. At that time the bleeding stopped without nasal packing. She reports that she has been holding pressure for a long time but it has not helped. She reports a very large volume of blood loss. She reports that she has been having nightly nosebleeds for at least the last couple of weeks. Related Data Home Medications Medication Instructions Recorded Confirmed ergocalciferol (vitamin D2) 1,250 1,250 mcg PO MO Supplement 08/12/20 03/18/23 mcg (50,000 unit) capsule rosuvastatin 10 mg tablet 10 mg PO HS Cholesterol 08/12/20 03/18/23 acetaminophen 500 mg tablet 1,000 mg PO Q6HP PRN Mild Pain 12/18/22 03/18/23 (Tylenol Extra Strength) (Scale Score 1-4) albuterol sulfate 90 mcg/actuation 2 puff inhalation Q4HP PRN 12/18/22 03/18/23 aerosol inhaler shortness of air or wheezing related to copd amitriptyline 25 mg tablet 25 mg PO HS Depression 12/18/22 03/18/23 apixaban 5 mg tablet (Eliquis) 5 mg PO BID Blood Thinner/DVT 12/18/22 03/18/23 Prophylaxis aspirin 81 mg capsule 81 mg PO DAILY Heart Health 12/18/22 03/18/23 budesonide-formoterol HFA 160 2 puff inhalation BIDRT Breathing 12/18/22 03/18/23 mcg-4.5 mcg/actuation aerosol Problems inhaler (Symbicort) buspirone 10 mg tablet 10 mg PO BID Anxiety 12/18/22 03/18/23 carvedilol 3.125 mg tablet 3.125 mg PO BID High Blood Pressure 12/18/22 03/18/23 docusate sodium 100 mg tablet 100 mg PO BID Constipation 12/18/22 03/18/23 ferrous sulfate 324 mg (65 mg 324 mg PO DAILY anemia 12/18/22 03/18/23 iron) tablet,delayed release icosapent ethyl 1 gram capsule 1 g PO BID Hyperlipidemia 12/18/22 03/18/23 (Vascepa) insulin lispro 100 unit/mL 0 sliding scale dose SQ ACHS 12/18/22 03/18/23 subcutaneous pen Diabetes multivitamin 1 tab PO DAILY Supplement 12/18/22 03/18/23 nitroglycerin 0.4 mg sublingual 0.4 mg sublingual Q5MINP PRN Chest 12/18/22 03/18/23 tablet Pain omeprazole 40 mg capsule,delayed 40 mg PO HS Acid Reflux 12/18/22 03/18/23 release polyethylene glycol 3350 17 gram 17 g PO DAILY Constipation 12/18/22 03/18/23 oral powder packet (Miralax) trazodone 50 mg tablet 50 mg PO HS Insomnia 12/18/22 03/18/23 acetaminophen 500 mg tablet 500 mg PO AC Pain 12/19/22 03/18/23 albuterol sulfate 2.5 mg/3 mL 2.5 mg inhalation Q4HP PRN 12/19/22 03/18/23 (0.083 %) solution for nebulization shortness of air or wheezing gabapentin 300 mg capsule 300 mg PO BID Pain 12/19/22 03/18/23 paroxetine HCl 40 mg tablet 40 mg PO HS mood 12/19/22 03/18/23 hydrocodone 5 mg-acetaminophen 325 1 tab PO Q12HP PRN Breakthrough 01/12/23 03/18/23 mg tablet Pain, Severe oxymetazoline 0.05 % nasal spray 2 spray intranasal Q12HP PRN Nasal 01/12/23 03/17/23 (Afrin Sinus (oxymetazoline)) Congestion spironolactone 50 mg tablet 50 mg PO DAILY Fluid 03/12/23 03/18/23 (Aldactone) clopidogrel 75 mg tablet 75 mg PO DAILY Blood Thinner 03/18/23 03/18/23 fluticasone fur. 100 mcg-umeclid 1 inh inhalation DAILY Copd 03/18/23 03/18/23 62.5 mcg-vilant 25 mcg inhalat.powder (Trelegy Ellipta) sacubitril 24 mg-valsartan 26 mg 1 tab PO BID High Blood Pressure 03/18/23 03/18/23 tablet (Entresto) Previous Rx's Medication Instructions Recorded bumetanide 1 mg tablet 1.5 mg PO BIDL Fluid 30 days #0 03/19/23 tabs empagliflozin 10 mg tablet 10 mg PO DAILY #30 tabs 03/19/23 (Jardiance) fluticasone fur. 100 mcg-umeclid 1 inh inhalation DAILY 30 days #0 03/19/23 62.5 mcg-vilant 25 mcg ea inhalat.powder (Trelegy Ellipta) doxycycline hyclate 100 mg capsule 100 mg PO BID 5 days #10 caps 03/28/23 Allergies Allergy/AdvReac Type Severity Reaction Status Date / Time cephalexin Allergy Verified 03/12/23 10:36 Penicillins Allergy Verified 03/12/23 10:36 PFS <Alvarez Gibbs MD - Last Filed: 03/28/23 07:33> PFS Disclaimer: The information contained in this section may have been updated after the patient was seen, as this information can be updated by other users. Medical History Anxiety Atrial fibrillation BMI 30.0-30.9,adult CAD in [place] artery Callus of foot Cardiomyopathy Class 2 obesity due to excess calories with body mass index (BMI) of 39.0 to 39.9 in adult Congestive heart failure COPD (chronic obstructive pulmonary disease) Coronary artery disease Depression Diabetes mellitus, type 2 Diabetic foot Fibromyalgia GERD (gastroesophageal reflux disease) Heart failure HFrEF (heart failure with reduced ejection fraction) HLD (hyperlipidemia) HTN (hypertension) Insomnia Iron deficiency anemia Lymphedema Major depressive disorder Non-STEMI (non-ST elevated myocardial infarction) Onychodystrophy Onychomycosis Osteoarthritis Osteoporosis Paresthesia of both lower extremities Pneumonia Pulmonary hypertension Right ventricular dilation Surgical History H/O hernia repair H/O: hysterectomy History of bladder surgery History of coronary artery stent placement Family History Other No significant family history Social History Smoking Status: Never smoker alcohol intake: never substance use type: denies use current occupational status: retired and disabled Travel in the last 8 weeks: None housing: longterm lives independently: No longterm: Yes <Alvarez Gibbs MD - Last Filed: 03/28/23 07:33> ROS Obtained: Yes All systems reviewed & no additional complaints except as documented Physical Exam <Alvarez Gibbs MD - Last Filed: 03/28/23 07:33> General General appearance: alert and in distress Head Head exam: atraumatic and normocephalic Eye Eye exam: Present normal appearance, PERRL and EOMI ENT ENT exam: Present other (Copious clots and active venous appearing blood emanating from the left nare) Neck Neck exam: Present normal inspection and full ROM Chest Chest inspection: Present normal inspection and symmetric chest wall rise; Absent tenderness Respiratory Respiratory exam: Present normal lung sounds bilaterally; Absent respiratory distress Cardiovascular Cardiovascular exam: Present regular rate and normal rhythm Abdominal Exam Abdominal exam: Present soft; Absent distention, tenderness or guarding Extremities Exam Extremities exam: Present normal inspection; Absent edema or joint swelling Back Exam Back exam: Present normal inspection; Absent tenderness Neurological Exam Neurological exam: Present alert and oriented X3; Absent motor sensory deficit Psychiatric Psychiatric exam: Present normal affect and normal mood Skin Skin exam: Present warm, dry and normal color Lymphatic Lymphatic Findings: no adenopathy Medical Decision Making <Alvarez Gibbs MD - Last Filed: 03/28/23 07:33> Medical Records Medical records reviewed: Yes I reviewed the patient's medical records. Tj Inquiry Pt receiving controlled substance: No Tj was queried for this patient: No Vital Signs: 03/28/23 02:25 03/28/23 03:03 03/28/23 03:31 Temperature 98 F Temperature Source Oral Pulse Rate 92 H 86 Pulse Rate [Right] 91 H Respiratory Rate 16 Blood Pressure 131/69 117/66 Blood Pressure [Right Arm] 140/97 H Blood Pressure Mean 78 83 Blood Pressure Mean [Right Arm] 111 02 Sat by Pulse Oximetry 93 L 98 99 Oxygen Delivery Method Non-Rebreather Non-Rebreather Oxygen Flow Rate (LPM) 15 15 03/28/23 04:00 03/28/23 04:30 03/28/23 05:00 Temperature Temperature Source Pulse Rate 96 H 78 Pulse Rate [Right] Respiratory Rate Blood Pressure 133/84 110/71 125/79 Blood Pressure [Right Arm] Blood Pressure Mean 100 84 94 Blood Pressure Mean [Right Arm] 02 Sat by Pulse Oximetry 99 99 99 Oxygen Delivery Method Non-Rebreather Non-Rebreather Non-Rebreather Oxygen Flow Rate (LPM) 15 15 15 03/28/23 05:30 03/28/23 06:00 03/28/23 06:30 Temperature Temperature Source Pulse Rate 85 72 65 Pulse Rate [Right] Respiratory Rate Blood Pressure 126/75 119/70 133/74 Blood Pressure [Right Arm] Blood Pressure Mean 96 95 93 Blood Pressure Mean [Right Arm] 02 Sat by Pulse Oximetry 99 98 99 Oxygen Delivery Method Non-Rebreather Non-Rebreather Non-Rebreather Oxygen Flow Rate (LPM) 15 15 15 03/28/23 07:00 03/28/23 07:30 03/28/23 08:00 Temperature Temperature Source Pulse Rate 76 75 77 Pulse Rate [Right] Respiratory Rate 18 18 Blood Pressure 119/73 122/67 133/65 Blood Pressure [Right Arm] Blood Pressure Mean 88 85 77 Blood Pressure Mean [Right Arm] 02 Sat by Pulse Oximetry 99 100 100 Oxygen Delivery Method Oxygen Flow Rate (LPM) 03/28/23 08:30 03/28/23 09:00 03/28/23 09:31 Temperature Temperature Source Pulse Rate 68 69 78 Pulse Rate [Right] Respiratory Rate Blood Pressure 122/74 137/75 97/56 L Blood Pressure [Right Arm] Blood Pressure Mean 90 95 69 Blood Pressure Mean [Right Arm] 02 Sat by Pulse Oximetry 100 97 94 L Oxygen Delivery Method Oxygen Flow Rate (LPM) 03/28/23 10:01 03/28/23 10:30 03/28/23 11:00 Temperature Temperature Source Pulse Rate 66 Pulse Rate [Right] Respiratory Rate 20 Blood Pressure 115/69 112/58 L 124/78 Blood Pressure [Right Arm] Blood Pressure Mean 84 88 93 Blood Pressure Mean [Right Arm] 02 Sat by Pulse Oximetry 100 Oxygen Delivery Method Simple Mask Nasal Cannula Simple Mask Oxygen Flow Rate (LPM) 3 3 5 Lab Data Lab results reviewed: Yes I reviewed the patient's lab results. Lab Results 03/28/23 02:50: WBC 13.3 H, RBC 4.82, Hgb 12.3, Hct 40.2, MCV 83.5, MCH 25.5 L, MCHC 30.6 L, RDW 20.7 H, Plt Count 520 H, MPV 8.5, Neut % (Auto) 70.9, Lymph % (Auto) 19.3, [place] % (Auto) 6.6, Eos % (Auto) 2.6, Baso % (Auto) 0.7, Neut # (Auto) 9.4 H, Lymph # (Auto) 2.6, [place] # (Auto) 0.9, Eos # (Auto) 0.3, Baso # (Auto) 0.1, PT 11.4, INR 1.06, APTT 26.6, Sodium 133 L, Potassium 5.3 H, Chloride 93 L, Carbon Dioxide 37 H, Anion Gap 8.3, BUN 25 H, Creatinine 0.80, Estimated Creat Clear 76, Estimated GFR 70, Est GFR ( Amer) 85, Glucose 196 H, Calcium 9.2, Total Bilirubin 0.7, AST 48 H, ALT 29, Alkaline Phosphatase 53, Total Protein 6.7, Albumin 3.6, Globulin 3.1, Albumin/Globulin Ratio 1.2 03/28/23 02:50 03/28/23 02:50 Orders (Tests/Meds): ED MEDICATIONS Discontinued Medications Generic Name Dose Route Start Last Admin Trade Name Freq PRN Reason Stop Dose Admin Lactated Ringer's 1,000 mls @ 999 mls/hr 03/28/23 10:09 03/28/23 10:13 Lactated Ringer's 1000 Ml Bag IV 03/28/23 11:09 999 mls/hr .Q1H1M ONE Administration Morphine Sulfate 4 mg 03/28/23 02:37 03/28/23 02:49 Morphine 4mg/Ml Syringe IV 03/28/23 02:38 4 mg ONCE ONE Administration Ondansetron HCl 4 mg 03/28/23 02:47 03/28/23 02:49 Ondansetron 4mg/2ml Vial IV 03/28/23 02:48 4 mg ONCE ONE Administration ORDERS Category Date Time Status Consult to ENT [CONS] Routine Cons 03/28/23 05:41 Active CBC w/Auto Diff [Complete Blood Count Auto Diff] Stat Lab 03/28/23 02:50 Completed CMP [Comprehensive Metabolic Panel] Stat Lab 03/28/23 02:50 Completed PT INR [Prothrombin Time INR] Stat Lab 03/28/23 02:50 Completed PTT [Activated Partial Thrombo Time] Stat Lab 03/28/23 02:50 Completed Medical Decision Narrative: 72-year-old female with history of recent ED visit for epistaxis, history of A-fib on Eliquis as well as chronic hypoxic respiratory failure presents with left-sided nosebleed for the last several hours. History was obtained interactive discussion with patient, chart review, EMS. On arrival, patient is afebrile, hypoxic satting in the 70s on room air, active bleeding and clots noted from the left nare, moving all extremities spontaneously. Patient's O2 sats improved rapidly after administration of oxygen by a mask. Differential diagnosis includes but is not limited to anterior nosebleed, posterior nosebleed, coagulopathy, acute blood loss anemia On arrival to the cleared the patient's clots, administered Afrin and applied external nasal pressure via clamps. This was held for approximately 20 minutes, she reports a mild decrease in the blood but continues to spit it up and reports continued bleeding. We then clear the nares of clots again and applied Afrin to the nose and to the rapid Rhino, then inserted an anterior rapid Rhino and inflated it until became uncomfortable. Shortly thereafter she reports resolution of the bleeding. Workup initiated including CBC CMP PT/INR. On re-evaluation, patient [remains afebrile, HD stable.] Satting 100% on mask given inability to use nasal cannula at this time. Laboratory workup independently interpreted by me and significant for hemoglobin 12.3, down 1 point from yesterday. Mild hyperkalemia noted. Platelet count 520. PT and INR within normal limits. Patient was placed in observation status at 3:30 AM to assess for potential rebleeding and need for further interventions. Imaging was considered, but deemed to be of low clinical utility. At this time care was handed off to oncoming physician pending ENT evaluation. <Kyrie Lara MD - Last Filed: 03/28/23 11:51> Vital Signs: 03/28/23 02:25 03/28/23 03:03 03/28/23 03:31 Temperature 98 F Temperature Source Oral Pulse Rate 92 H 86 Pulse Rate [Right] 91 H Respiratory Rate 16 Blood Pressure 131/69 117/66 Blood Pressure [Right Arm] 140/97 H Blood Pressure Mean 78 83 Blood Pressure Mean [Right Arm] 111 02 Sat by Pulse Oximetry 93 L 98 99 Oxygen Delivery Method Non-Rebreather Non-Rebreather Oxygen Flow Rate (LPM) 15 15 03/28/23 04:00 03/28/23 04:30 03/28/23 05:00 Temperature Temperature Source Pulse Rate 96 H 78 Pulse Rate [Right] Respiratory Rate Blood Pressure 133/84 110/71 125/79 Blood Pressure [Right Arm] Blood Pressure Mean 100 84 94 Blood Pressure Mean [Right Arm] 02 Sat by Pulse Oximetry 99 99 99 Oxygen Delivery Method Non-Rebreather Non-Rebreather Non-Rebreather Oxygen Flow Rate (LPM) 15 15 15 03/28/23 05:30 03/28/23 06:00 03/28/23 06:30 Temperature Temperature Source Pulse Rate 85 72 65 Pulse Rate [Right] Respiratory Rate Blood Pressure 126/75 119/70 133/74 Blood Pressure [Right Arm] Blood Pressure Mean 96 95 93 Blood Pressure Mean [Right Arm] 02 Sat by Pulse Oximetry 99 98 99 Oxygen Delivery Method Non-Rebreather Non-Rebreather Non-Rebreather Oxygen Flow Rate (LPM) 15 15 15 03/28/23 07:00 03/28/23 07:30 03/28/23 08:00 Temperature Temperature Source Pulse Rate 76 75 77 Pulse Rate [Right] Respiratory Rate 18 18 Blood Pressure 119/73 122/67 133/65 Blood Pressure [Right Arm] Blood Pressure Mean 88 85 77 Blood Pressure Mean [Right Arm] 02 Sat by Pulse Oximetry 99 100 100 Oxygen Delivery Method Oxygen Flow Rate (LPM) 03/28/23 08:30 03/28/23 09:00 03/28/23 09:31 Temperature Temperature Source Pulse Rate 68 69 78 Pulse Rate [Right] Respiratory Rate Blood Pressure 122/74 137/75 97/56 L Blood Pressure [Right Arm] Blood Pressure Mean 90 95 69 Blood Pressure Mean [Right Arm] 02 Sat by Pulse Oximetry 100 97 94 L Oxygen Delivery Method Oxygen Flow Rate (LPM) 03/28/23 10:01 03/28/23 10:30 03/28/23 11:00 Temperature Temperature Source Pulse Rate 66 Pulse Rate [Right] Respiratory Rate 20 Blood Pressure 115/69 112/58 L 124/78 Blood Pressure [Right Arm] Blood Pressure Mean 84 88 93 Blood Pressure Mean [Right Arm] 02 Sat by Pulse Oximetry 100 Oxygen Delivery Method Simple Mask Nasal Cannula Simple Mask Oxygen Flow Rate (LPM) 3 3 5 Lab Data Lab Results 03/28/23 02:50: WBC 13.3 H, RBC 4.82, Hgb 12.3, Hct 40.2, MCV 83.5, MCH 25.5 L, MCHC 30.6 L, RDW 20.7 H, Plt Count 520 H, MPV 8.5, Neut % (Auto) 70.9, Lymph % (Auto) 19.3, [place] % (Auto) 6.6, Eos % (Auto) 2.6, Baso % (Auto) 0.7, Neut # (Auto) 9.4 H, Lymph # (Auto) 2.6, [place] # (Auto) 0.9, Eos # (Auto) 0.3, Baso # (Auto) 0.1, PT 11.4, INR 1.06, APTT 26.6, Sodium 133 L, Potassium 5.3 H, Chloride 93 L, Carbon Dioxide 37 H, Anion Gap 8.3, BUN 25 H, Creatinine 0.80, Estimated Creat Clear 76, Estimated GFR 70, Est GFR ( Amer) 85, Glucose 196 H, Calcium 9.2, Total Bilirubin 0.7, AST 48 H, ALT 29, Alkaline Phosphatase 53, Total Protein 6.7, Albumin 3.6, Globulin 3.1, Albumin/Globulin Ratio 1.2 Orders (Tests/Meds): ED MEDICATIONS Discontinued Medications Generic Name Dose Route Start Last Admin Trade Name Freq PRN Reason Stop Dose Admin Lactated Ringer's 1,000 mls @ 999 mls/hr 03/28/23 10:09 03/28/23 10:13 Lactated Ringer's 1000 Ml Bag IV 03/28/23 11:09 999 mls/hr .Q1H1M ONE Administration Morphine Sulfate 4 mg 03/28/23 02:37 03/28/23 02:49 Morphine 4mg/Ml Syringe IV 03/28/23 02:38 4 mg ONCE ONE Administration Ondansetron HCl 4 mg 03/28/23 02:47 03/28/23 02:49 Ondansetron 4mg/2ml Vial IV 03/28/23 02:48 4 mg ONCE ONE Administration ORDERS Category Date Time Status Consult to ENT [CONS] Routine Cons 03/28/23 05:41 Active CBC w/Auto Diff [Complete Blood Count Auto Diff] Stat Lab 03/28/23 02:50 Completed CMP [Comprehensive Metabolic Panel] Stat Lab 03/28/23 02:50 Completed PT INR [Prothrombin Time INR] Stat Lab 03/28/23 02:50 Completed PTT [Activated Partial Thrombo Time] Stat Lab 03/28/23 02:50 Completed Medical Decision Narrative: 72-year-old female with history of recent ED visit for epistaxis, history of A-fib on Eliquis as well as chronic hypoxic respiratory failure presents with left-sided nosebleed for the last several hours. History was obtained interactive discussion with patient, chart review, EMS. On arrival, patient is afebrile, hypoxic satting in the 70s on room air, active bleeding and clots noted from the left nare, moving all extremities spontaneously. Patient's O2 sats improved rapidly after administration of oxygen by a mask. Differential diagnosis includes but is not limited to anterior nosebleed, posterior nosebleed, coagulopathy, acute blood loss anemia On arrival to the cleared the patient's clots, administered Afrin and applied external nasal pressure via clamps. This was held for approximately 20 minutes, she reports a mild decrease in the blood but continues to spit it up and reports continued bleeding. We then clear the nares of clots again and applied Afrin to the nose and to the rapid Rhino, then inserted an anterior rapid Rhino and inflated it until became uncomfortable. Shortly thereafter she reports resolution of the bleeding. Workup initiated including CBC CMP PT/INR. On re-evaluation, patient remains afebrile, HD stable. Satting 100% on mask given inability to use nasal cannula at this time. Laboratory workup independently interpreted by me and significant for hemoglobin 12.3, down 1 point from yesterday. Mild hyperkalemia noted. Platelet count 520. PT and INR within normal limits. Patient was placed in observation status at 3:30 AM to assess for potential rebleeding and need for further interventions. Imaging was considered, but deemed to be of low clinical utility. At this time care was handed off to oncoming physician pending ENT evaluation. Jane: I assume primary responsibility for this patient after signout from previous physician. ENT evaluated patient around 11 AM. Recommended keeping packing in place, holding anticoagulation until 03/31, then follow-up on Sunday, and following up on 04/02 in ENT clinic to have packing removed. Patient also be sent home with doxycycline for strep coverage until follow-up. Because patient typically on nasal cannula at home, requiring low-flow mask here due to nasal packing. She is saturating appropriately on oxygen here in the emergency department. senior care was contacted and they are okay with this, return precautions were given. Because patient at baseline without signs or symptoms of clinical decompensation, deemed appropriate for discharge. Results were relayed to patient who voiced understanding and were agreeable to outpatient management and follow up. At the time of discharge the patient was hemodynamically stable, tolerating PO, and mobilizing appropriately. Procedures <Alvarez Gibbs MD - Last Filed: 03/28/23 07:33> Risk/Benefits of Procedure(s) Were Explained: Yes Epistaxis Control Time Out Performed: Yes Nostril: left Nose Prepped With: oxymetazoline Direct Inspection: unable to visualize Clots Removed by: blowing nose Cautery Used: none Device Inserted: hemostatic balloon (rapid rhino) Patient Tolerated Procedure: well and no complications Critical Care <Alvarez Gibbs MD - Last Filed: 03/28/23 07:33> Critical Care Time Critical Care Time: No
--- NOTE | 2023-03-28 09:40 | PC.NURSE ---
pt bed and depends changed and given warm blankets and pillow
--- NOTE | 2023-03-28 09:54 | PC.NURSE ---
rounded on pt, pt sleeping at this time
--- NOTE | 2023-03-28 09:56 | PC.NURSE ---
rounded on pt, call light in reach, at bs
[2023-03-28] MEDS: LACTATED RINGERS 1000ML 1,000 ML 999 ML IV (10:13)
--- NOTE | 2023-03-28 10:15 | PC.NURSE ---
Rounded on Pt. to see if they had any needs. No needs at this time
--- NOTE | 2023-03-28 10:43 | PC.NURSE ---
MD MARQUES AT BEDSIDE
--- NOTE | 2023-03-28 11:25 | PC.NURSE ---
switched pt to an aersol mask on 5 liters,oxygen sat 97 percent at this time. MD gonzalez
--- NOTE | 2023-03-28 11:49 | PC.NURSE ---
Report called to [facility].
== END 2023-03-28 12:46 ==
PROVIDERS: Emergency Medicine; Emergency Provider Emergency Medicine
DX: R04.0 Epistaxis (principal); I48.91 Unspecified atrial fibrillation; I11.0 Hypertensive heart disease with heart failure; I50.20 Unspecified systolic (congestive) heart failure; E78.5 Hyperlipidemia, unspecified; I25.10 Atherosclerotic heart disease of native coronary artery without angina pectoris; I42.9 Cardiomyopathy, unspecified; I27.20 Pulmonary hypertension, unspecified; J44.9 Chronic obstructive pulmonary disease, unspecified; E11.9 Type 2 diabetes mellitus without complications; K21.9 Gastro-esophageal reflux disease without esophagitis; I25.2 Old myocardial infarction; Z79.01 Long term (current) use of anticoagulants; E87.5 Hyperkalemia
CPT/HCPCS: 30901; 80053; 85025; 85610; 85730; 96361; 96374; 96375; 99285; J2405

== ENCOUNTER 2023-04-10 14:46 | Outpatient (CLI) | payer MEDICARE, SELFPAY ==
[2023-04-10 16:08] LABS: Chloride 99 mmol/L (98-107); Sodium 134 mmol/L (136-145)
[2023-04-10 16:10] LABS: Alanine Aminotransferase 17 U/L (12-78); Albumin Level 3.6 g/dl (3.5-5.0); Alkaline Phosphatase 68 U/L (38-126); Aspartate Amino Transferase 31 U/L (14-36); Bilirubin,Direct 0.2 mg/dl (0.0-0.4); Bilirubin,Total 0.2 mg/dl (0.2-1.3); Blood Urea Nitrogen 20 mg/dl (7-17); Carbon Dioxide 33 mmol/L (22.0-30.0); Estimated Glomerular Filt Rate 49 ml/min (>60); GFR (African American) 59 ML/MIN (>60)
[2023-04-10 16:11] LABS: Calcium 9.2 mg/dl (8.4-10.2); Chol/HDL Ratio 2.8 (1-3.5); Cholesterol 152 mg/dl (140-200); Glucose 169 mg/dl (74-100); HDL Cholesterol 55 mg/dl (40-60); Total Protein,Serum 6.4 g/dl (6.3-8.2); Triglycerides 113 mg/dl (30-150); VLDL Cholesterol 23 mg/dL (0-40)
[2023-04-10 16:22] LABS: Direct LDL Cholesterol 68.72 mg/dL (100-129)
[2023-04-10 16:25] LABS: Basophils # 0.1 K/mm3 (0-0.2); Basophils % 0.7 % (0.1-2.0); Eosinophils # 0.2 K/mm3 (0.0-0.4); Eosinophils % 2.9 % (0.1-12.0); Hematocrit 40.5 % (37.0-47.0); Hemoglobin 11.6 g/dL (12.2-16.2); Lymphocytes # 1.9 K/mm3 (0.7-4.5); Lymphocytes % 23.1 % (10-50); Mean Corpuscular HGB Conc 28.5 g/dL (31.8-35.4); Mean Corpuscular Hemoglobin 25.1 pg (27.0-31.2); Mean Corpuscular Volume 87.9 fl (81-99); Mean Platelet Volume 8.5 fl (7.4-10.4); Monocytes # 0.6 K/mm3 (0.1-1.0); Monocytes % 7.6 % (1.7-9.3); Neutrophils # 5.3 K/mm3 (1.8-7.8); Neutrophils % 65.7 % (37.0-80.0); Platelet Count 410 K/mm3 (142-424); Red Blood Count 4.61 M/mm3 (4.20-5.40); Red Cell Distribution Width 20.2 % (11.5-17.5)
[2023-04-10 16:51] LABS: Free T4 (Free Thyroxine) 0.83 ng/dl (0.78-2.19)
== END 2023-04-10 23:59 ==
LOC: LAB 14:48
PROVIDERS: PCP Internal Medicine Adolescent Medicine; Visit Provider Nurse Practitioner
DX: E78.5 Hyperlipidemia, unspecified (principal); I10 Essential (primary) hypertension; I25.10 Atherosclerotic heart disease of native coronary artery without angina pectoris; I48.91 Unspecified atrial fibrillation; I50.20 Unspecified systolic (congestive) heart failure; Z79.899 Other long term (current) drug therapy
CPT/HCPCS: 36415; 80048; 80061; 80076; 83735; 84439; 84443; 85025

== ENCOUNTER 2023-04-19 07:10 | Inpatient (IN) | payer MEDICARE, SELFPAY ==
[2023-04-19] VITALS (23 sets, daily range): BP systolic 86–129; BP diastolic 46–72; PULSE 59–83; RESP 16–28; TEMP 36.2–37.2; O2SAT 92–98; BMI 32.2; BMI 33.2; BMI 33.7
--- NOTE | 2023-04-19 06:54 | XR_ITS ---
FINAL REPORT CLINICAL HISTORY: Shortness of breath and altered mental status COMPARISON: 03/14/2023 FINDINGS: A single portable view of the chest was obtained. The heart size and pulmonary vascularity are within normal limits. The mediastinum is within normal limits. There is mild atelectasis or scarring in the right lung base. No acute pulmonary abnormality is identified. The bony thorax is intact. IMPRESSION: Mild atelectasis or scarring right lung base. Reviewed, Interpreted and Dictated by Delfino Ruth III, MD Transcribed by Mayra Rios Authenticated and [facility]
--- NOTE | 2023-04-19 06:54 | CT_ITS ---
FINAL REPORT CLINICAL HISTORY: [facility] COMPARISON: 03/12/2023 FINDINGS: Axial images of the head were obtained without contrast. Coronal reformatted images were also obtained. This study was performed with techniques to keep radiation doses as low as reasonably achievable (ALARA). Individualized dose reduction techniques using automated exposure control or adjustment of mA and/or kV according to the patient's size were employed. There is generalized age-appropriate atrophy. Periventricular low-attenuation areas are seen consistent with mild chronic ischemic changes. There is no evidence of intracranial hemorrhage or mass. There is no evidence of acute infarct. There are chronic bilateral lacunar infarcts which are stable. Right frontal calcification is stable. There is no evidence of shift of the midline structures. No skull abnormality is seen on the bone window images. There is moderate mucosal thickening of the left maxillary sinus. IMPRESSION: Atrophy and mild periventricular chronic ischemic changes. No acute intracranial abnormality identified. Reviewed, Interpreted and Dictated by Delfino Ruth III, MD Transcribed by Cass Pérez Authenticated and [facility]
--- NOTE | 2023-04-19 06:55 | HMH.EDGENADL ---
Discharge Plan Disposition Patient Disposition: Admitted Clinical Impressions Clinical Impression: Altered mental status, Acute and chronic respiratory failure Discharge ED Provider: Kyrie Lara General Adult HPI <Nicole Tsang, DO - Last Filed: 04/19/23 07:11> General Chief complaint: Altered Mental Status Stated complaint: unresponsive Time Seen by Provider: 04/19/23 07:11 History of Present Illness HPI narrative: This patient is a 72-year-old female well-known to the emergency department with history of COPD with chronic respiratory failure on 3 L nasal cannula, CHF, CAD, hypertension, hyperlipidemia, type 2 diabetes, and BiPAP use at night with chronic noncompliance presenting with concern for altered mental status. According to nursing facility where the patient resides, she was found this morning unresponsive in her bed when they went to wake her for the morning. Per EMS, they arrived on scene and nursing staff was holding her BiPAP up against her face, however she had an oxygen saturation in the 50's. EMS notes that they put her on supplemental oxygen via nonrebreather at 10 L, and the patient began to wake up and was conversational with an oxygen saturation in the 90s. Patient now is awake and conversational and states that she is feeling fine. She has no concerns or complaints, but is still slightly confused. Patient has had multiple ED visits for similar situations in the past related to BiPAP noncompliance, CHF exacerbations, and COPD exacerbations with acute on chronic respiratory failure. She generally improves with appropriate oxygenation via BiPAP. Related Data Home Medications Medication Instructions Recorded Confirmed ergocalciferol (vitamin D2) 1,250 1,250 mcg PO QOW Supplement 08/12/20 04/19/23 mcg (50,000 unit) capsule rosuvastatin 10 mg tablet 10 mg PO HS Cholesterol 08/12/20 04/19/23 acetaminophen 500 mg tablet 1,000 mg PO Q6HP PRN Fever Or Pain 12/18/22 04/19/23 (Tylenol Extra Strength) albuterol sulfate 90 mcg/actuation 2 puff inhalation Q4HP PRN 12/18/22 04/19/23 aerosol inhaler Shortness Of Breath Or Wheezing apixaban 5 mg tablet (Eliquis) 5 mg PO BID Blood Thinner/DVT 12/18/22 04/19/23 Prophylaxis buspirone 10 mg tablet 10 mg PO BID Anxiety 12/18/22 04/19/23 carvedilol 3.125 mg tablet 3.125 mg PO BIDWMEAL High Blood 12/18/22 04/19/23 Pressure docusate sodium 100 mg tablet 100 mg PO BID Constipation 12/18/22 04/19/23 ferrous sulfate 324 mg (65 mg 324 mg PO DAILY Supplement 12/18/22 04/19/23 iron) tablet,delayed release icosapent ethyl 1 gram capsule 1 g PO BID Cholesterol 12/18/22 04/19/23 (Vascepa) insulin lispro 100 unit/mL 0 sliding scale dose SQ ACHS 12/18/22 04/19/23 subcutaneous pen Diabetes multivitamin 1 tab PO DAILY Supplement 12/18/22 04/19/23 nitroglycerin 0.4 mg sublingual 0.4 mg sublingual Q5MINP PRN Chest 12/18/22 04/19/23 tablet Pain omeprazole 40 mg capsule,delayed 40 mg PO HS Acid Reflux 12/18/22 04/19/23 release polyethylene glycol 3350 17 gram 17 g PO DAILY Constipation 12/18/22 04/19/23 oral powder packet (Miralax) acetaminophen 500 mg tablet 500 mg PO AC Pain 12/19/22 04/19/23 albuterol sulfate 2.5 mg/3 mL 2.5 mg inhalation Q4HP PRN 12/19/22 04/19/23 (0.083 %) solution for nebulization shortness of air or wheezing gabapentin 300 mg capsule 300 mg PO BID MODERATE PAIN (4-6) 12/19/22 04/19/23 paroxetine HCl 40 mg tablet 40 mg PO HS Depression 12/19/22 04/19/23 hydrocodone 5 mg-acetaminophen 325 1 tab PO Q12HP PRN Breakthrough 01/12/23 04/19/23 mg tablet Pain, Severe oxymetazoline 0.05 % nasal spray 2 spray intranasal Q12HP PRN Nasal 01/12/23 04/19/23 (Afrin Sinus (oxymetazoline)) Congestion spironolactone 50 mg tablet 50 mg PO DAILY Fluid 03/12/23 04/19/23 (Aldactone) clopidogrel 75 mg tablet 75 mg PO DAILY Blood Thinner 03/18/23 04/19/23 fluticasone fur. 100 mcg-umeclid 1 inh inhalation DAILY Copd 03/18/23 04/19/23 62.5 mcg-vilant 25 mcg inhalat.powder (Trelegy Ellipta) amitriptyline 10 mg tablet 10 mg PO HS Depression 04/10/23 04/19/23 bumetanide 0.5 mg tablet 1.5 mg PO BIDL Fluid 04/10/23 04/19/23 amiodarone 400 mg tablet 400 mg PO BID Heart Rhythm 04/19/23 04/19/23 clobetasol 0.05 % shampoo 1 applic topical DAILY Skin 04/19/23 04/19/23 Condition empagliflozin 10 mg tablet 10 mg PO DAILY Diabetes 04/19/23 04/19/23 (Jardiance) insulin glargine 100 unit/mL (3 10 unit SQ HS Diabetes 04/19/23 04/19/23 mL) subcutaneous pen (Lantus Solostar U-100 Insulin) levothyroxine 50 mcg tablet 50 mcg PO DAILYDM THYROID 04/19/23 04/19/23 miconazole nitrate 2 % topical 1 applic topical BID Skin Condition 04/19/23 04/19/23 cream ondansetron 4 mg disintegrating 4 mg PO Q6HP PRN Nausea And 04/19/23 04/19/23 tablet Vomiting sodium chloride 0.65 % nasal spray 1 spray intranasal TID DRY NOSE 04/19/23 04/19/23 aerosol (Deep Sea Nasal) trazodone 100 mg tablet 100 mg PO HS Insomnia 04/19/23 04/19/23 triamcinolone acetonide 0.1 % 1 applic topical Q12HP PRN Rash 04/19/23 04/19/23 topical cream Allergies Allergy/AdvReac Type Severity Reaction Status Date / Time cephalexin Allergy Verified 04/12/23 13:04 Penicillins Allergy Verified 04/12/23 13:04 PFSH <Nicole Tsang DO - Last Filed: 04/19/23 07:11> FORMERLY [facility], [facility] Disclaimer: The information contained in this section may have been updated after the patient was seen, as this information can be updated by other users. Medical History Encounter for screening for malignant neoplasm of lung COPD mixed type History of smoking 30 or more pack years Dyspnea Bilateral hearing loss due to cerumen impaction Encounter for removal of nasal packing CAD in [place] artery Cardiomyopathy Non-STEMI (non-ST elevated myocardial infarction) Right ventricular dilation Coronary artery disease HFrEF (heart failure with reduced ejection fraction) Pneumonia Diabetes mellitus, type 2 Iron deficiency anemia Pulmonary hypertension Osteoporosis Major depressive disorder Heart failure Depression Lymphedema Insomnia GERD (gastroesophageal reflux disease) Class 2 obesity due to excess calories with body mass index (BMI) of 39.0 to 39.9 in adult Fibromyalgia Congestive heart failure Atrial fibrillation Anxiety HTN (hypertension) HLD (hyperlipidemia) COPD (chronic obstructive pulmonary disease) BMI 30.0-30.9,adult Osteoarthritis Callus of foot Paresthesia of both lower extremities Onychodystrophy Onychomycosis Diabetic foot Surgical History History of coronary artery stent placement History of bladder surgery H/O: hysterectomy H/O hernia repair Family History Other No significant family history Social History (Updated 04/19/23 @ 13:14 by Cass Neves RN) Smoking Status: Never smoker alcohol intake: never substance use type: denies use current occupational status: retired and disabled Travel in the last 8 weeks: None housing: care home lives independently: No care home: Yes <Nicole Tsang DO - Last Filed: 04/19/23 07:11> ROS Obtained: Yes All systems reviewed & no additional complaints except as documented Physical Exam <Nicole Tsang DO - Last Filed: 04/19/23 07:11> General General appearance: in no apparent distress, obtunded and obese Comment: Arouses to voice and is conversational Head Head exam: atraumatic and normocephalic Eye Eye exam: Present normal appearance, PERRL and EOMI ENT ENT exam: Present normal exam, normal oropharynx, mucous membranes moist and normal external ear exam Neck Neck exam: Present normal inspection, full ROM and trachea midline; Absent tenderness Chest Chest inspection: Present normal inspection and symmetric chest wall rise; Absent tenderness Respiratory Respiratory exam: Present other (Rales bilaterally, especially in the lung bases); Absent respiratory distress, wheezes, stridor or accessory muscle use Cardiovascular Cardiovascular exam: Present regular rate and normal rhythm Abdominal Exam Abdominal exam: Present soft; Absent distention, tenderness or guarding Extremities Exam Extremities exam: Present full ROM, normal capillary refill and edema (Chronic bilateral lower extremity edema which actually appears improved from my previous evaluations of the patient); Absent tenderness Back Exam Back exam: Present normal inspection and full ROM; Absent tenderness Neurological Exam Neurological exam: Present alert, CN II-XII intact and other (Generally weak with no focal deficits); Absent oriented X3 or motor sensory deficit Skin Skin exam: Present warm and dry Medical Decision Making <Nicole Tsang, DO - Last Filed: 04/19/23 07:11> Medical Records Medical records reviewed: Yes I reviewed the patient's medical records. Tj Inquiry Pt receiving controlled substance: No Vital Signs: 04/19/23 07:01 04/19/23 07:05 04/19/23 08:00 Temperature 97.1 F L 97.1 F L Temperature Source Oral Axillary Pulse Rate 64 Pulse Rate [Left] 83 83 Respiratory Rate 22 22 18 Blood Pressure 108/47 L Blood Pressure [Right Arm] 105/66 L 105/66 L Blood Pressure Mean 74 Blood Pressure Mean [Right Arm] 79 79 Blood Pressure Source Blood Pressure Source [Right Arm] Automatic Cuff Automatic Cuff Blood Pressure Position Blood Pressure Position [Right Arm] Supine Sitting 02 Sat by Pulse Oximetry 95 94 L 96 Oxygen Delivery Method Non-Rebreather Non-Rebreather BiPAP 04/19/23 08:31 04/19/23 09:01 04/19/23 09:06 Temperature Temperature Source Pulse Rate 65 62 70 Pulse Rate [Left] Respiratory Rate 18 18 16 Blood Pressure 104/59 L 86/53 L 88/46 L Blood Pressure [Right Arm] Blood Pressure Mean 68 61 68 Blood Pressure Mean [Right Arm] Blood Pressure Source Blood Pressure Source [Right Arm] Blood Pressure Position Blood Pressure Position [Right Arm] 02 Sat by Pulse Oximetry 96 92 L 94 L Oxygen Delivery Method BiPAP BiPAP BiPAP 04/19/23 09:34 04/19/23 10:02 04/19/23 10:31 Temperature Temperature Source Pulse Rate 67 60 62 Pulse Rate [Left] Respiratory Rate 18 18 18 Blood Pressure 98/58 L 112/54 L 106/72 L Blood Pressure [Right Arm] Blood Pressure Mean 65 68 83 Blood Pressure Mean [Right Arm] Blood Pressure Source Blood Pressure Source [Right Arm] Blood Pressure Position Blood Pressure Position [Right Arm] 02 Sat by Pulse Oximetry 97 94 L 96 Oxygen Delivery Method BiPAP BiPAP BiPAP 04/19/23 11:01 04/19/23 11:31 04/19/23 11:38 Temperature 97.8 F Temperature Source Axillary Pulse Rate 76 76 64 Pulse Rate [Left] Respiratory Rate 18 22 18 Blood Pressure 117/66 129/53 L 129/53 L Blood Pressure [Right Arm] Blood Pressure Mean 83 74 Blood Pressure Mean [Right Arm] Blood Pressure Source Automatic Cuff Blood Pressure Source [Right Arm] Blood Pressure Position Sitting Blood Pressure Position [Right Arm] 02 Sat by Pulse Oximetry 95 95 Oxygen Delivery Method BiPAP BiPAP BiPAP Lab Data Lab results reviewed: Yes I reviewed the patient's lab results. Lab Results 04/19/23 08:10: WBC 9.2, RBC 5.09, Hgb 13.2, Hct 44.8, MCV 88.0, MCH 25.9 L, MCHC 29.4 L, RDW 19.2 H, Plt Count 174, MPV 9.1, Neut % (Auto) 80.3 H, Lymph % (Auto) 10.0, [place] % (Auto) 7.9, Eos % (Auto) 1.2, Baso % (Auto) 0.5, Neut # (Auto) 7.4, Lymph # (Auto) 0.9, [place] # (Auto) 0.7, Eos # (Auto) 0.1, Baso # (Auto) 0.1, PT 11.4, INR 1.06, APTT 26.8, Sodium 134 L, Potassium 4.8, Chloride 94 L, Carbon Dioxide 34 H, Anion Gap 10.8, BUN 30 H, Creatinine 1.30 H, Estimated Creat Clear 59, Estimated GFR 40 L, Est GFR ( Amer) 49 L, Glucose 166 H, Calcium 8.7, Magnesium 1.9, Total Bilirubin 0.5, AST 36, ALT 17, Alkaline Phosphatase 71, Troponin I < 0.01, NT-Pro-B Natriuret Pep 4590 H, Total Protein 7.2, Albumin 4.1, Globulin 3.1, Albumin/Globulin Ratio 1.3 04/19/23 08:11: VBG pH 7.20 L, VBG pCO2 86.1 H, VBG pO2 47.5 H, VBG HCO3 32.9 H, VBG Total CO2 35.5 H, VBG O2 Saturation 74.2 H, VBG Base Excess 4.9 H, VBG Lactic Acid 2.1 H 04/19/23 09:24: VBG pH 7.24 L, VBG pCO2 75.3 H, VBG pO2 54.3 H, VBG HCO3 31.8 H, VBG Total CO2 34.1 H, VBG O2 Saturation 83.3 H, VBG Base Excess 4.5 H, VBG Lactic Acid 2.0 04/19/23 09:55: Troponin I 0.01 04/19/23 08:10 04/19/23 08:10 Orders (Tests/Meds): ED MEDICATIONS Generic Name Dose Route Start Last Admin Trade Name Justyna PRN Reason Stop Dose Admin Acetaminophen 650 mg 04/19/23 12:30 Acetaminophen 325mg Tab PO 05/19/23 12:29 Q4HP PRN Fever or Mild Pain (1-3) Al Hydrox/Mg Hydrox/Simethicone 30 ml 04/19/23 12:30 Aluminum/Magnesium/Simethicone 30ml Udc PO 05/19/23 12:29 QIDP PRN Dyspepsia Albuterol/Ipratropium 3 ml 04/19/23 18:00 Ipratropium/Albuterol 3 Ml [facility] 05/19/23 17:59 Q6RT JÚNIOR Ondansetron HCl 4 mg 04/19/23 12:30 Ondansetron 4mg/2ml Vial IV 05/19/23 12:29 Q8HP PRN Nausea Discontinued Medications Generic Name Dose Route Start Last Admin Trade Name Freq PRN Reason Stop Dose Admin Albuterol/Ipratropium 6 ml 04/19/23 08:46 04/19/23 09:13 Ipratropium/Albuterol 3 Ml Neb 04/19/23 08:47 6 ml ONCE ONE Administration Dexamethasone Sodium Phosphate 4 mg 04/19/23 08:59 04/19/23 09:17 Dexamethasone 4mg/Ml 1ml Vial IM 04/19/23 09:00 4 mg ONCE ONE Administration Magnesium Sulfate 2 gm in 50 mls @ 50 mls/hr 04/19/23 08:46 04/19/23 09:50 Magnesium Sulfate 2gm/50ml Premix IV 04/19/23 09:45 Not Given ONCE ONE Lactated Ringer's 1,000 mls @ 999 mls/hr 04/19/23 09:24 04/19/23 09:46 Lactated Ringer's 1000 Ml Bag IV 04/19/23 10:24 999 mls/hr .Q1H1M ONE Administration Magnesium Sulfate 2 gm in 50 mls @ 50 mls/hr 04/19/23 09:40 04/19/23 09:49 Magnesium Sulfate 2gm/50ml Premix IV 04/19/23 10:39 50 mls/hr ONCE ONE Administration Methylprednisolone Sodium Succinate 125 mg 04/19/23 08:46 04/19/23 09:50 Methylprednisolone Sod Succ 125mg Vial IV 04/19/23 08:47 Not Given ONCE ONE Methylprednisolone Sodium Succinate 125 mg 04/19/23 09:40 04/19/23 09:46 Methylprednisolone Sod Succ 125mg Vial IV 04/19/23 09:41 125 mg ONCE ONE Administration ORDERS Category Date Time Status CT head/brain wo con Stat Cat Scan 04/19/23 06:54 Completed XR chest portable Stat Exams 04/19/23 06:54 Completed Activated Partial Thrombo Time Stat Lab 04/19/23 08:10 Completed Brain Natriuretic Peptide Stat Lab 04/19/23 08:10 Completed CMP [Comprehensive Metabolic Panel] Stat Lab 04/19/23 08:10 Completed Complete Blood Count Auto Diff Stat Lab 04/19/23 08:10 Completed Magnesium Stat Lab 04/19/23 08:10 Completed Prothrombin Time INR Stat Lab 04/19/23 08:10 Completed Troponin I Q3H Lab 04/19/23 09:55 Completed Troponin I Q3H Lab 04/19/23 13:05 Completed Troponin I Stat Lab 04/19/23 08:10 Completed Urinalysis and Microscopic Stat Lab 04/19/23 07:01 Ordered Blood Culture Stat Micro 04/19/23 08:10 Received VBG [Venous Blood Gas] Stat RT 04/19/23 09:24 Completed Venous Blood Gas Stat RT 04/19/23 08:11 Completed Medical Decision Narrative: In summary, this patient is a 72-year-old female presenting to the Emergency Department for evaluation of unresponsiveness and low oxygen saturation at her nursing facility. Differential diagnoses considered include but are not limited to BiPAP noncompliance, pneumonia, respiratory failure, CHF exacerbation, COPD exacerbation. Ruling out the most morbid conditions drove assessment. On exam, the patient is somnolent but arouses to voice and is conversational. Per EMS, she has significantly improved since administration of supplemental oxygenation for hypoxia on room air. She is chronically O2 and BiPAP dependent. She denies any concerns or complaints. No focal deficits but she appears generally weak. Workup included CBC, CMP, troponin, VBG, BNP, lactic acid, urinalysis, chest x-ray, EKG, and CT head without contrast. Patient was placed on BiPAP upon arrival to assess for continued improvement. Patient care was signed out to the oncoming provider, Dr. Lara, pending results and disposition. <Kyrie Lara MD - Last Filed: 04/19/23 15:45> Vital Signs: 04/19/23 07:01 04/19/23 07:05 04/19/23 08:00 Temperature 97.1 F L 97.1 F L Temperature Source Oral Axillary Pulse Rate 64 Pulse Rate [Left] 83 83 Respiratory Rate 22 22 18 Blood Pressure 108/47 L Blood Pressure [Right Arm] 105/66 L 105/66 L Blood Pressure Mean 74 Blood Pressure Mean [Right Arm] 79 79 Blood Pressure Source Blood Pressure Source [Right Arm] Automatic Cuff Automatic Cuff Blood Pressure Position Blood Pressure Position [Right Arm] Supine Sitting 02 Sat by Pulse Oximetry 95 94 L 96 Oxygen Delivery Method Non-Rebreather Non-Rebreather BiPAP 04/19/23 08:31 04/19/23 09:01 04/19/23 09:06 Temperature Temperature Source Pulse Rate 65 62 70 Pulse Rate [Left] Respiratory Rate 18 18 16 Blood Pressure 104/59 L 86/53 L 88/46 L Blood Pressure [Right Arm] Blood Pressure Mean 68 61 68 Blood Pressure Mean [Right Arm] Blood Pressure Source Blood Pressure Source [Right Arm] Blood Pressure Position Blood Pressure Position [Right Arm] 02 Sat by Pulse Oximetry 96 92 L 94 L Oxygen Delivery Method BiPAP BiPAP BiPAP 04/19/23 09:34 04/19/23 10:02 04/19/23 10:31 Temperature Temperature Source Pulse Rate 67 60 62 Pulse Rate [Left] Respiratory Rate 18 18 18 Blood Pressure 98/58 L 112/54 L 106/72 L Blood Pressure [Right Arm] Blood Pressure Mean 65 68 83 Blood Pressure Mean [Right Arm] Blood Pressure Source Blood Pressure Source [Right Arm] Blood Pressure Position Blood Pressure Position [Right Arm] 02 Sat by Pulse Oximetry 97 94 L 96 Oxygen Delivery Method BiPAP BiPAP BiPAP 04/19/23 11:01 04/19/23 11:31 04/19/23 11:38 Temperature 97.8 F Temperature Source Axillary Pulse Rate 76 76 64 Pulse Rate [Left] Respiratory Rate 18 22 18 Blood Pressure 117/66 129/53 L 129/53 L Blood Pressure [Right Arm] Blood Pressure Mean 83 74 Blood Pressure Mean [Right Arm] Blood Pressure Source Automatic Cuff Blood Pressure Source [Right Arm] Blood Pressure Position Sitting Blood Pressure Position [Right Arm] 02 Sat by Pulse Oximetry 95 95 Oxygen Delivery Method BiPAP BiPAP BiPAP Lab Data Lab Results 04/19/23 08:10: WBC 9.2, RBC 5.09, Hgb 13.2, Hct 44.8, MCV 88.0, MCH 25.9 L, MCHC 29.4 L, RDW 19.2 H, Plt Count 174, MPV 9.1, Neut % (Auto) 80.3 H, Lymph % (Auto) 10.0, [place] % (Auto) 7.9, Eos % (Auto) 1.2, Baso % (Auto) 0.5, Neut # (Auto) 7.4, Lymph # (Auto) 0.9, [place] # (Auto) 0.7, Eos # (Auto) 0.1, Baso # (Auto) 0.1, PT 11.4, INR 1.06, APTT 26.8, Sodium 134 L, Potassium 4.8, Chloride 94 L, Carbon Dioxide 34 H, Anion Gap 10.8, BUN 30 H, Creatinine 1.30 H, Estimated Creat Clear 59, Estimated GFR 40 L, Est GFR ( Amer) 49 L, Glucose 166 H, Calcium 8.7, Magnesium 1.9, Total Bilirubin 0.5, AST 36, ALT 17, Alkaline Phosphatase 71, Troponin I < 0.01, NT-Pro-B Natriuret Pep 4590 H, Total Protein 7.2, Albumin 4.1, Globulin 3.1, Albumin/Globulin Ratio 1.3 04/19/23 08:11: VBG pH 7.20 L, VBG pCO2 86.1 H, VBG pO2 47.5 H, VBG HCO3 32.9 H, VBG Total CO2 35.5 H, VBG O2 Saturation 74.2 H, VBG Base Excess 4.9 H, VBG Lactic Acid 2.1 H 04/19/23 09:24: VBG pH 7.24 L, VBG pCO2 75.3 H, VBG pO2 54.3 H, VBG HCO3 31.8 H, VBG Total CO2 34.1 H, VBG O2 Saturation 83.3 H, VBG Base Excess 4.5 H, VBG Lactic Acid 2.0 04/19/23 09:55: Troponin I 0.01 Orders (Tests/Meds): ED MEDICATIONS Generic Name Dose Route Start Last Admin Trade Name Justyna PRN Reason Stop Dose Admin Acetaminophen 650 mg 04/19/23 12:30 Acetaminophen 325mg Tab PO 05/19/23 12:29 Q4HP PRN Fever or Mild Pain (1-3) Al Hydrox/Mg Hydrox/Simethicone 30 ml 04/19/23 12:30 Aluminum/Magnesium/Simethicone 30ml Udc PO 05/19/23 12:29 QIDP PRN Dyspepsia Albuterol/Ipratropium 3 ml 04/19/23 18:00 Ipratropium/Albuterol 3 Ml [facility] 05/19/23 17:59 Q6RT JÚNIOR Ondansetron HCl 4 mg 04/19/23 12:30 Ondansetron 4mg/2ml Vial IV 05/19/23 12:29 Q8HP PRN Nausea Discontinued Medications Generic Name Dose Route Start Last Admin Trade Name Justyna PRN Reason Stop Dose Admin Albuterol/Ipratropium 6 ml 04/19/23 08:46 04/19/23 09:13 Ipratropium/Albuterol 3 Ml [facility] 04/19/23 08:47 6 ml ONCE ONE Administration Dexamethasone Sodium Phosphate 4 mg 04/19/23 08:59 04/19/23 09:17 Dexamethasone 4mg/Ml 1ml Vial IM 04/19/23 09:00 4 mg ONCE ONE Administration Magnesium Sulfate 2 gm in 50 mls @ 50 mls/hr 04/19/23 08:46 04/19/23 09:50 Magnesium Sulfate 2gm/50ml Premix IV 04/19/23 09:45 Not Given ONCE ONE Lactated Ringer's 1,000 mls @ 999 mls/hr 04/19/23 09:24 04/19/23 09:46 Lactated Ringer's 1000 Ml Bag IV 04/19/23 10:24 999 mls/hr .Q1H1M ONE Administration Magnesium Sulfate 2 gm in 50 mls @ 50 mls/hr 04/19/23 09:40 04/19/23 09:49 Magnesium Sulfate 2gm/50ml Premix IV 04/19/23 10:39 50 mls/hr ONCE ONE Administration Methylprednisolone Sodium Succinate 125 mg 04/19/23 08:46 04/19/23 09:50 Methylprednisolone Sod Succ 125mg Vial IV 04/19/23 08:47 Not Given ONCE ONE Methylprednisolone Sodium Succinate 125 mg 04/19/23 09:40 04/19/23 09:46 Methylprednisolone Sod Succ 125mg Vial IV 04/19/23 09:41 125 mg ONCE ONE Administration ORDERS Category Date Time Status CT head/brain wo con Stat Cat Scan 04/19/23 06:54 Completed XR chest portable Stat Exams 04/19/23 06:54 Completed Activated Partial Thrombo Time Stat Lab 04/19/23 08:10 Completed Brain Natriuretic Peptide Stat Lab 04/19/23 08:10 Completed CMP [Comprehensive Metabolic Panel] Stat Lab 04/19/23 08:10 Completed Complete Blood Count Auto Diff Stat Lab 04/19/23 08:10 Completed Magnesium Stat Lab 04/19/23 08:10 Completed Prothrombin Time INR Stat Lab 04/19/23 08:10 Completed Troponin I Q3H Lab 04/19/23 09:55 Completed Troponin I Q3H Lab 04/19/23 13:05 Completed Troponin I Stat Lab 04/19/23 08:10 Completed Urinalysis and Microscopic Stat Lab 04/19/23 07:01 Ordered Blood Culture Stat Micro 04/19/23 08:10 Received VBG [Venous Blood Gas] Stat RT 04/19/23 09:24 Completed Venous Blood Gas Stat RT 04/19/23 08:11 Completed Medical Decision Narrative: In summary, this patient is a 72-year-old female presenting to the Emergency Department for evaluation of unresponsiveness and low oxygen saturation at her nursing facility. Differential diagnoses considered include but are not limited to BiPAP noncompliance, pneumonia, respiratory failure, CHF exacerbation, COPD exacerbation. Ruling out the most morbid conditions drove assessment. On exam, the patient is somnolent but arouses to voice and is conversational. Per EMS, she has significantly improved since administration of supplemental oxygenation for hypoxia on room air. She is chronically O2 and BiPAP dependent. She denies any concerns or complaints. No focal deficits but she appears generally weak. Workup included CBC, CMP, troponin, VBG, BNP, lactic acid, urinalysis, chest x-ray, EKG, and CT head without contrast. Patient was placed on BiPAP upon arrival to assess for continued improvement. Patient care was signed out to the oncoming provider, Dr. Lara, pending results and disposition. Jane: I assume primary responsibility for this patient after signout from previous physician. I arrived shortly after patient arrived with EMS. Patient placed on BiPAP and not incredibly wheezy on exam. DuoNebs and Solu-Medrol not deemed necessary at this time. EKG independently interpreted and significant for A-fib 69 beats a minute without ST or T wave changes concerning for acute ischemia. QRS and QT intervals within normal limits. Borderline rightward axis. After initial VBG resulted, patient was given DuoNebs and Solu-Medrol IV. Ultrasound-guided IV was needed placed for labs and meds. Workup independently interpreted and significant for No leukocytosis, coags negative. Patient with TESSIE creatinine 1.3 up from normal baseline and BUN 30. Initial troponin negative. VBG with acute on chronic respiratory acidosis without compensation pH 7.2, CO2 86, bicarb 32.9 and lactate mildly elevated 2.1. On my repeat evaluation, patient with improving mental status, following commands, opening eyes to voice with GCS 14. Repeat VBG with improving uncompensated respiratory acidosis VBG 7.24, CO2 75, bicarb 31. Lactate improving with fluids. BNP elevated at 4600. Chest x-ray without acute cardiopulmonary or airspace disease, CT head without acute intracranial pathology. On reevaluation, patient still GCS 14. Because of this and not return to baseline, as well as continued need for respiratory support and concern for cardiac involvement at this point, patient was given 2 g ceftriaxone for severe COPD exacerbation and hospital medicine was contacted. Interactive discussion was had with hospital medicine. Because patient high risk for clinical decompensation, deemed appropriate for inpatient admission. Results were relayed to patient who voiced understanding and patient was agreeable to inpatient admission and management. Patient was admitted to the hospital for further definitive management. Critical Care <Nicole Tsang DO - Last Filed: 04/19/23 07:11> Critical Care Time Critical Care Time: No <Kyrie Lara MD - Last Filed: 03/14/24 15:45> Critical Care Time Critical Care Time: Yes (resp) Attestation: On 04/19/23, the high probability of a clinically significant, sudden or life threatening deterioration of the following system(s) required my full and direct attention, intervention and personal management. The time I documented below is in addition to time spent performing reported procedures but includes the following listed in this critical care notation. Total Time Total Critical Care Time: 60
--- NOTE | 2023-04-19 07:15 | PC.NURSE ---
Daughter informed of pt arrival and plan, would like to be updated after testing [phone]
--- NOTE | 2023-04-19 07:40 | ECG_ITS ---
APPROVED REPORT Exam: Resting ECG HR:69 bpm ECG Measurements Heart Rate 69 AXES QRSd 116 QRS 136 QT 440 T 83 QTc 459 Conclusion ATRIAL FIBRILLATION POSSIBLE RIGHT VENTRICULAR HYPERTROPHY [SOME/ALL OF: PROMINENT R IN V1, LATE TRANSITION, RAD, MANAS, SSS] POSSIBLE SEPTAL MYOCARDIAL INFARCTION , PROBABLY OLD [30 ms Q WAVE IN V1/V2] Electronically signed by : PAXTON SUTHERLAND, 04/20/2023 03:29:39
--- NOTE | 2023-04-19 07:45 | PC.NURSE ---
PT TO CT
[2023-04-19 08:27] LABS: VBG Base Excess 4.9 mmol/L (-2.4-2.3); VBG HCO3 32.9 mmol/L (23-30); VBG Oxygen Saturation 74.2 % (50-70); VBG PO2 47.5 mmol/L (28-40); VBG Total CO2 35.5 mmol/L (23-27)
[2023-04-19 08:39] LABS: Lactate Venous 2.1 mmol/L (0.4-2.0); VBG PCO2 86.1 mmol/L (35-51)
[2023-04-19 08:39] LABS: Basophils # 0.1 K/mm3 (0-0.2); Basophils % 0.5 % (0.1-2.0); Eosinophils # 0.1 K/mm3 (0.0-0.4); Eosinophils % 1.2 % (0.1-12.0); Hematocrit 44.8 % (37.0-47.0); Hemoglobin 13.2 g/dL (12.2-16.2); Lymphocytes # 0.9 K/mm3 (0.7-4.5); Mean Corpuscular HGB Conc 29.4 g/dL (31.8-35.4); Mean Corpuscular Hemoglobin 25.9 pg (27.0-31.2); Mean Platelet Volume 9.1 fl (7.4-10.4); Monocytes # 0.7 K/mm3 (0.1-1.0); Monocytes % 7.9 % (1.7-9.3); Neutrophils # 7.4 K/mm3 (1.8-7.8); Neutrophils % 80.3 % (37.0-80.0); Platelet Count 174 K/mm3 (142-424); Red Blood Count 5.09 M/mm3 (4.20-5.40); Red Cell Distribution Width 19.2 % (11.5-17.5); White Blood Count 9.2 K/mm3 (4.8-10.8)
[2023-04-19 08:50] LABS: Activated Partial Thrombo Time 26.8 seconds (22.8-30.6); INR 1.06 (0.9-1.1); Prothrombin Time 11.4 seconds (10.1-12.5)
[2023-04-19 08:52] LABS: Alanine Aminotransferase 17 U/L (12-78); Albumin Level 4.1 g/dl (3.5-5.0); Albumin/Globulin Ratio 1.3 (1.1-1.8); Alkaline Phosphatase 71 U/L (38-126); Anion Gap 10.8 mEq/L (5-15); Aspartate Amino Transferase 36 U/L (14-36); Bilirubin,Total 0.5 mg/dl (0.2-1.3); Blood Urea Nitrogen 30 mg/dl (7-17); Calcium 8.7 mg/dl (8.4-10.2); Carbon Dioxide 34 mmol/L (22.0-30.0); Chloride 94 mmol/L (98-107); Creatinine Clearance Estimated 59 mL/min (50-200); Estimated Glomerular Filt Rate 40 ml/min (>60); GFR (African American) 49 ML/MIN (>60); Globulin 3.1 g/dL (1.3-3.2); Glucose 166 mg/dl (74-100); Magnesium 1.9 mg/dl (1.6-2.3); Potassium 4.8 mmoL/L (3.5-5.1); Sodium 134 mmol/L (136-145); Total Protein,Serum 7.2 g/dl (6.3-8.2)
[2023-04-19 09:05] LABS: NT Pro Brain Natriuretic Pep. 4590 pg/mL (0-125)
[2023-04-19 09:11] LABS: Troponin I < 0.01 ng/ml (0.00-0.034)
[2023-04-19] MEDS: IPRATROPIUM/ALBUTEROL 3 ML NEB 6 ML IH (09:13)
[2023-04-19] MEDS: DEXAMETHASONE 4MG/ML 1ML VIAL 4 MG IM (09:17)
--- NOTE | 2023-04-19 09:17 | PC.NURSE ---
dexa 4mg was put in duo nebs per Dr Lara by resp
[2023-04-19 09:36] LABS: VBG Base Excess 4.5 mmol/L (-2.4-2.3); VBG HCO3 31.8 mmol/L (23-30); VBG Oxygen Saturation 83.3 % (50-70); VBG PH 7.24 mmol/L (7.31-7.41); VBG PO2 54.3 mmol/L (28-40); VBG Total CO2 34.1 mmol/L (23-27)
[2023-04-19 09:42] LABS: VBG PCO2 75.3 mmol/L (35-51)
[2023-04-19] MEDS: METHYLPREDNISOLONE SOD SUCC 125MG VIAL 125 MG IV (09:46)
[2023-04-19] MEDS: LACTATED RINGERS 1000ML 1,000 ML 999 ML IV (09:46)
[2023-04-19] MEDS: MAGNESIUM SULFATE IN WATER 2 GM/50 ML PIGGYBACK IV (09:49)
--- NOTE | 2023-04-19 10:18 | PC.NURSE ---
ACCOUNT UNDERWRITER NOTIFIED OF ADMISSION
[2023-04-19 11:08] LABS: Troponin I 0.01 ng/ml (0.00-0.034)
--- NOTE | 2023-04-19 11:28 | PC.NURSE ---
Pt's daughter Concepción called, updated her on POC on pt.
--- NOTE | 2023-04-19 11:37 | PC.NURSE ---
REPORT CALLED TO FELIPA CASTREJON
--- NOTE | 2023-04-19 11:48 | PC.NURSE ---
Updated [facility] on pt's POC
--- NOTE | 2023-04-19 13:17 | P.CONPHA_ITS ---
Pharmacy Intervention Comments: MEDICATION RECONCILIATION COMPLETE USING MAR FROM [facility].
--- NOTE | 2023-04-19 13:17 | HMH.PHAINT1 ---
Pharmacy Intervention Comments: MEDICATION RECONCILIATION COMPLETE USING MAR FROM [facility].
[2023-04-19 14:01] LABS: Troponin I 0.01 ng/ml (0.00-0.034)
[2023-04-19 14:32] LABS: VBG Base Excess 3.4 mmol/L (-2.4-2.3); VBG HCO3 28.8 mmol/L (23-30); VBG Oxygen Saturation 99.5 % (50-70); VBG PH 7.36 mmol/L (7.31-7.41); VBG PO2 177.8 mmol/L (28-40); VBG Total CO2 30.4 mmol/L (23-27)
[2023-04-19 14:35] LABS: Lactate Venous 2.2 mmol/L (0.4-2.0); VBG PCO2 51.7 mmol/L (35-51)
--- NOTE | 2023-04-19 15:37 | SW/DCPLANNER ---
Addendum entered by Jayla Abdi RN 04/20/23 14:29: Patient discharging back to [facility] today, Lauryn notified. Original Note: This patient currently resides at [facility] level of care. I will continue to update Lauryn w/ [facility] until patient is medically stable for discharge. Discharge date is unknown at this time.
--- NOTE | 2023-04-19 17:17 | P.CONS_ITS ---
History of Present Illness History of present illness: Ms. Sena is a 72-year-old female with a greater than [id number] smoking history, COPD, chronic hypoxic respiratory failure, sleep apnea, hypercarbic respiratory failure presented with worsening mentation found to be in hypercarbic respiratory failure needing noninvasive ventilatory support and pulmonary was called for further evaluation and management. [facility] Disclaimer: The information contained in this section may have been updated after the patient was seen, as this information can be updated by other users. Medical History Encounter for screening for malignant neoplasm of lung COPD mixed type History of smoking 30 or more pack years Dyspnea Bilateral hearing loss due to cerumen impaction Encounter for removal of nasal packing CAD in [place] artery Cardiomyopathy Non-STEMI (non-ST elevated myocardial infarction) Right ventricular dilation Coronary artery disease HFrEF (heart failure with reduced ejection fraction) Pneumonia Diabetes mellitus, type 2 Iron deficiency anemia Pulmonary hypertension Osteoporosis Major depressive disorder Heart failure Depression Lymphedema Insomnia GERD (gastroesophageal reflux disease) Class 2 obesity due to excess calories with body mass index (BMI) of 39.0 to 39.9 in adult Fibromyalgia Congestive heart failure Atrial fibrillation Anxiety HTN (hypertension) HLD (hyperlipidemia) COPD (chronic obstructive pulmonary disease) BMI 30.0-30.9,adult Osteoarthritis Callus of foot Paresthesia of both lower extremities Onychodystrophy Onychomycosis Diabetic foot Surgical History History of coronary artery stent placement History of bladder surgery H/O: hysterectomy H/O hernia repair Family History Other No significant family history Social History (Updated 04/19/23 @ 13:14 by Cass Neves RN) Smoking Status: Never smoker alcohol intake: never substance use type: denies use current occupational status: retired and disabled Travel in the last 8 weeks: None housing: detention lives independently: No detention: Yes Review of Systems Review of Systems Review of systems:: unable to obtain Review of systems (narrative): Altered on BiPAP Pulmonology Exam Inpatient Vital signs and Labs for Last 24 Hours: Temp Pulse Resp BP Pulse Ox O2 Del Method FiO2 98.9 F 72 19 107/56 L 95 Room Air 40 04/19/23 16:00 04/19/23 12:10 04/19/23 12:10 04/19/23 12:10 04/19/23 12:10 04/19/23 15:00 04/19/23 12:02 Laboratory Results - last 24 hr 04/19/23 08:10: WBC 9.2, RBC 5.09, Hgb 13.2, Hct 44.8, MCV 88.0, MCH 25.9 L, M CHC 29.4 L, RDW 19.2 H, Plt Count 174, MPV 9.1, Neut % (Auto) 80.3 H, Lymph % (Auto) 10.0, Citrus % (Auto) 7.9, Eos % (Auto) 1.2, Baso % (Auto) 0.5, Neut # (Auto) 7.4, Lymph # (Auto) 0.9, Citrus # (Auto) 0.7, Eos # (Auto) 0.1, Baso # (Auto) 0.1, PT 11.4, INR 1.06, APTT 26.8, Sodium 134 L, Potassium 4.8, Chloride 94 L, Carbon Dioxide 34 H, Anion Gap 10.8, BUN 30 H, Creatinine 1.30 H, Estimated Creat Clear 59, Estimated GFR 40 L, Est GFR ( Amer) 49 L, G lucose 166 H, Calcium 8.7, Magnesium 1.9, Total Bilirubin 0.5, AST 36, ALT 17, Alkaline Phosphatase 71, Troponin I < 0.01, NT-Pro-B Natriuret Pep 4590 H, Total Protein 7.2, Albumin 4.1, Globulin 3.1, Albumin/Globulin Ratio 1.3 04/19/23 08:11: VBG pH 7.20 L, VBG pCO2 86.1 H, VBG pO2 47.5 H, VBG HCO3 32.9 H, VBG Total CO2 35.5 H, VBG O2 Saturation 74.2 H, VBG Base Excess 4.9 H, VBG Lactic Acid 2.1 H 04/19/23 09:24: VBG pH 7.24 L, VBG pCO2 75.3 H, VBG pO2 54.3 H, VBG HCO3 31.8 H, VBG Total CO2 34.1 H, VBG O2 Saturation 83.3 H, VBG Base Excess 4.5 H, VBG Lactic Acid 2.0 04/19/23 09:55: Troponin I 0.01 04/19/23 13:05: Troponin I 0.01 04/19/23 14:05: VBG pH 7.36, VBG pCO2 51.7 H, VBG pO2 177.8 H, VBG HCO3 28.8, V BG Total CO2 30.4 H, VBG O2 Saturation 99.5 H, VBG Base Excess 3.4 H, VBG Lactic Acid 2.2 H I & O for Labs for Last 24 Hours: Intake & Output 04/16/23 04/17/23 04/18/23 04/19/23 23:59 23:59 23:59 23:59 Output Total 0 / 0 Balance 0 / 0 Weight 215 lb 6 oz Microbiology Reports for the Last 24 Hours: Microbiology 03/12/23 16:30 Nose MRSA Culture - Final 03/12/23 11:30 Blood Blood Culture - Preliminary 03/12/23 11:15 Blood Blood Culture - Preliminary Constitutional: Present severe distress Head: Present normocephalic and atraumatic ENT: Present normal exam, normal oropharynx and mucous membranes moist Neck: Present normal inspection and full ROM Respiratory: Present prolonged expiratory phase, respiratory distress and wheezes; Absent able to speak in complete sentences Cardiac: Present S1/S2, Tachycardia and radial pulses present GI: Present soft and distention; Absent tenderness or guarding Rectal (female): Present deferred (female): Present deferred Skin: Present intact; Absent cyanosis or jaundice Neuro: Absent alert, awake or oriented x 3 Extremities: Present normal inspection; Absent clubbing or cyanosis Psychiatric: Present normal affect and cooperative Meds Home Medications and Allergies Home Medications Medication Instructions Recorded Confirmed Type ergocalciferol (vitamin D2) 1,250 1,250 mcg PO QOW Supplement 08/12/20 04/19/23 History mcg (50,000 unit) capsule rosuvastatin 10 mg tablet 10 mg PO HS Cholesterol 08/12/20 04/19/23 History acetaminophen 500 mg tablet 1,000 mg PO Q6HP PRN Fever Or Pain 12/18/22 04/19/23 History (Tylenol Extra Strength) albuterol sulfate 90 mcg/actuation 2 puff inhalation Q4HP PRN 12/18/22 04/19/23 History aerosol inhaler Shortness Of Breath Or Wheezing apixaban 5 mg tablet (Eliquis) 5 mg PO BID Blood Thinner/DVT 12/18/22 04/19/23 History Prophylaxis buspirone 10 mg tablet 10 mg PO BID Anxiety 12/18/22 04/19/23 History carvedilol 3.125 mg tablet 3.125 mg PO BIDWMEAL High Blood 12/18/22 04/19/23 History Pressure docusate sodium 100 mg tablet 100 mg PO BID Constipation 12/18/22 04/19/23 History ferrous sulfate 324 mg (65 mg 324 mg PO DAILY Supplement 12/18/22 04/19/23 History iron) tablet,delayed release icosapent ethyl 1 gram capsule 1 g PO BID Cholesterol 12/18/22 04/19/23 History (Vascepa) insulin lispro 100 unit/mL 0 sliding scale dose SQ ACHS 12/18/22 04/19/23 History subcutaneous pen Diabetes multivitamin 1 tab PO DAILY Supplement 12/18/22 04/19/23 History nitroglycerin 0.4 mg sublingual 0.4 mg sublingual Q5MINP PRN Chest 12/18/22 04/19/23 History tablet Pain omeprazole 40 mg capsule,delayed 40 mg PO HS Acid Reflux 12/18/22 04/19/23 History release polyethylene glycol 3350 17 gram 17 g PO DAILY Constipation 12/18/22 04/19/23 History oral powder packet (Miralax) acetaminophen 500 mg tablet 500 mg PO AC Pain 12/19/22 04/19/23 History albuterol sulfate 2.5 mg/3 mL 2.5 mg inhalation Q4HP PRN 12/19/22 04/19/23 History (0.083 %) solution for nebulization shortness of air or wheezing gabapentin 300 mg capsule 300 mg PO BID MODERATE PAIN (4-6) 12/19/22 04/19/23 History paroxetine HCl 40 mg tablet 40 mg PO HS Depression 12/19/22 04/19/23 History hydrocodone 5 mg-acetaminophen 325 1 tab PO Q12HP PRN Breakthrough 01/12/23 04/19/23 History mg tablet Pain, Severe oxymetazoline 0.05 % nasal spray 2 spray intranasal Q12HP PRN Nasal 01/12/23 04/19/23 History (Afrin Sinus (oxymetazoline)) Congestion spironolactone 50 mg tablet 50 mg PO DAILY Fluid 03/12/23 04/19/23 History (Aldactone) clopidogrel 75 mg tablet 75 mg PO DAILY Blood Thinner 03/18/23 04/19/23 History fluticasone fur. 100 mcg-umeclid 1 inh inhalation DAILY Copd 03/18/23 04/19/23 History 62.5 mcg-vilant 25 mcg inhalat.powder (Trelegy Ellipta) amitriptyline 10 mg tablet 10 mg PO HS Depression 04/10/23 04/19/23 History bumetanide 0.5 mg tablet 1.5 mg PO BIDL Fluid 04/10/23 04/19/23 History amiodarone 400 mg tablet 400 mg PO BID Heart Rhythm 04/19/23 04/19/23 History clobetasol 0.05 % shampoo 1 applic topical DAILY Skin 04/19/23 04/19/23 History Condition empagliflozin 10 mg tablet 10 mg PO DAILY Diabetes 04/19/23 04/19/23 History (Jardiance) insulin glargine 100 unit/mL (3 10 unit SQ HS Diabetes 04/19/23 04/19/23 History mL) subcutaneous pen (Lantus Solostar U-100 Insulin) levothyroxine 50 mcg tablet 50 mcg PO DAILYDM THYROID 04/19/23 04/19/23 History miconazole nitrate 2 % topical 1 applic topical BID Skin Condition 04/19/23 04/19/23 History cream ondansetron 4 mg disintegrating 4 mg PO Q6HP PRN Nausea And 04/19/23 04/19/23 History tablet Vomiting sodium chloride 0.65 % nasal spray 1 spray intranasal TID DRY NOSE 04/19/23 04/19/23 History aerosol (Deep Sea Nasal) trazodone 100 mg tablet 100 mg PO HS Insomnia 04/19/23 04/19/23 History triamcinolone acetonide 0.1 % 1 applic topical Q12HP PRN Rash 04/19/23 04/19/23 History topical cream New Prescriptions to Start Prescriptions: Allergies Allergy/AdvReac Type Severity Reaction Status Date / Time cephalexin Allergy Verified 04/12/23 13:04 Penicillins Allergy Verified 04/12/23 13:04 Results Laboratory Findings 04/19/23 08:10 04/19/23 08:10 PT/INR, D-dimer PT 11.4 seconds (10.1-12.5) 04/19/23 08:10 INR 1.06 (0.9-1.1) 04/19/23 08:10 Abnormal lab findings: Abnormal Labs 04/19/23 04/19/23 04/19/23 08:10 08:11 09:24 MCH 25.9 L MCHC 29.4 L RDW 19.2 H Neut % (Auto) 80.3 H VBG pH 7.20 L 7.24 L VBG pCO2 86.1 H 75.3 H VBG pO2 47.5 H 54.3 H VBG HCO3 32.9 H 31.8 H VBG Total CO2 35.5 H 34.1 H VBG O2 Saturation 74.2 H 83.3 H VBG Base Excess 4.9 H 4.5 H VBG Lactic Acid 2.1 H Sodium 134 L Chloride 94 L Carbon Dioxide 34 H BUN 30 H Creatinine 1.30 H Estimated GFR 40 L Est GFR ( Amer) 49 L Glucose 166 H NT-Pro-B Natriuret Pep 4590 H 04/19/23 14:05 MCH MCHC RDW Neut % (Auto) VBG pH VBG pCO2 51.7 H VBG pO2 177.8 H VBG HCO3 VBG Total CO2 30.4 H VBG O2 Saturation 99.5 H VBG Base Excess 3.4 H VBG Lactic Acid 2.2 H Sodium Chloride Carbon Dioxide BUN Creatinine Estimated GFR Est GFR ( Amer) Glucose NT-Pro-B Natriuret Pep Assessment and Plan *Assessment and plan (1) Acute and chronic respiratory failure: Status: Acute Category: Medical Code(s): J96.20 - Acute and chronic respiratory failure, unspecified whether with hypoxia or hypercapnia (2) COPD mixed type: Status: Acute Category: Medical Code(s): J44.9 - Chronic obstructive pulmonary disease, unspecified Plan Ms. Sena is a 72-year-old female with a greater than [id number] smoking history, COPD, chronic hypoxic respiratory failure, sleep apnea, hypercarbic respiratory failure presented with worsening mentation found to be in hypercarbic respiratory failure needing noninvasive ventilatory support and pulmonary was called for further evaluation and management. VBG on admission showed severe hypercarbic respiratory failure with a pH of 7.23 with a pCO2 86.1, settings changed to BiPAP at 20/10 with a rate of 22 with subsequent VBG showed improving hypercarbic respiratory failure with a pH of 7.36 and pCO2 51.7. Chest x-ray upon admission did not show any significant airspace disease. No evidence of leukocytosis. Afebrile but hemodynamically stable. On initial examination patient altered but significant wheezing noted on auscultation. Plan: Continue BiPAP therapy at 20/10, rate of 22. Will continue tonight and will attempt to wean tomorrow. Continue BiPAP nightly for her sleep apnea Continue oxygen supplementation to maintain O2 saturation below 90% and above Methylprednisolone 60 mg daily DuoNebs every 6 hours along with Pulmicort every 12 scheduled We will hold off on initiating antibiotics at this point of time.
[2023-04-19] MEDS: METHYLPREDNISOLONE SOD SUCC 125MG VIAL 60 MG IV (18:19)
--- NOTE | 2023-04-19 18:23 | P.HP_ITS ---
History of Present Illness *Admission Date: 04/19/23 *Reason for visit:: SOB *History of present illness: O he just went acyclovir patient is a 72-year-old female with past medical history of COPD, heart failure, diabetes mellitus who presents to the hospital due to shortness of breath. Patient is on 3 L nasal cannula at baseline. Patient was also noted to have altered mental status. Patient was found unresponsive this morning. Patient was started on BiPAP and was admitted for further management and evaluation [facility] Disclaimer: The information contained in this section may have been updated after the patient was seen, as this information can be updated by other users. Medical History Encounter for screening for malignant neoplasm of lung COPD mixed type History of smoking 30 or more pack years Dyspnea Bilateral hearing loss due to cerumen impaction Encounter for removal of nasal packing CAD in cahto artery Cardiomyopathy Non-STEMI (non-ST elevated myocardial infarction) Right ventricular dilation Coronary artery disease HFrEF (heart failure with reduced ejection fraction) Pneumonia Diabetes mellitus, type 2 Iron deficiency anemia Pulmonary hypertension Osteoporosis Major depressive disorder Heart failure Depression Lymphedema Insomnia GERD (gastroesophageal reflux disease) Class 2 obesity due to excess calories with body mass index (BMI) of 39.0 to 39.9 in adult Fibromyalgia Congestive heart failure Atrial fibrillation Anxiety HTN (hypertension) HLD (hyperlipidemia) COPD (chronic obstructive pulmonary disease) BMI 30.0-30.9,adult Osteoarthritis Callus of foot Paresthesia of both lower extremities Onychodystrophy Onychomycosis Diabetic foot Surgical History History of coronary artery stent placement History of bladder surgery H/O: hysterectomy H/O hernia repair Family History Other No significant family history Social History (Updated 04/19/23 @ 13:14 by Cass Neves RN) Smoking Status: Never smoker alcohol intake: never substance use type: denies use current occupational status: retired and disabled Travel in the last 8 weeks: None housing: residential lives independently: No residential: Yes Review of Systems Review of Systems Review of systems (narrative): as per HPI Meds Home Medications and Allergies Home Medications Medication Instructions Recorded Confirmed Type ergocalciferol (vitamin D2) 1,250 1,250 mcg PO QOW Supplement 08/12/20 04/19/23 History mcg (50,000 unit) capsule rosuvastatin 10 mg tablet 10 mg PO HS Cholesterol 08/12/20 04/19/23 History acetaminophen 500 mg tablet 1,000 mg PO Q6HP PRN Fever Or Pain 12/18/22 04/19/23 History (Tylenol Extra Strength) albuterol sulfate 90 mcg/actuation 2 puff inhalation Q4HP PRN 12/18/22 04/19/23 History aerosol inhaler Shortness Of Breath Or Wheezing apixaban 5 mg tablet (Eliquis) 5 mg PO BID Blood Thinner/DVT 12/18/22 04/19/23 History Prophylaxis buspirone 10 mg tablet 10 mg PO BID Anxiety 12/18/22 04/19/23 History carvedilol 3.125 mg tablet 3.125 mg PO BIDWMEAL High Blood 12/18/22 04/19/23 History Pressure docusate sodium 100 mg tablet 100 mg PO BID Constipation 12/18/22 04/19/23 History ferrous sulfate 324 mg (65 mg 324 mg PO DAILY Supplement 12/18/22 04/19/23 History iron) tablet,delayed release icosapent ethyl 1 gram capsule 1 g PO BID Cholesterol 12/18/22 04/19/23 History (Vascepa) insulin lispro 100 unit/mL 0 sliding scale dose SQ ACHS 12/18/22 04/19/23 History subcutaneous pen Diabetes multivitamin 1 tab PO DAILY Supplement 12/18/22 04/19/23 History nitroglycerin 0.4 mg sublingual 0.4 mg sublingual Q5MINP PRN Chest 12/18/22 04/19/23 History tablet Pain omeprazole 40 mg capsule,delayed 40 mg PO HS Acid Reflux 12/18/22 04/19/23 History release polyethylene glycol 3350 17 gram 17 g PO DAILY Constipation 12/18/22 04/19/23 History oral powder packet (Miralax) acetaminophen 500 mg tablet 500 mg PO AC Pain 12/19/22 04/19/23 History albuterol sulfate 2.5 mg/3 mL 2.5 mg inhalation Q4HP PRN 12/19/22 04/19/23 History (0.083 %) solution for nebulization shortness of air or wheezing gabapentin 300 mg capsule 300 mg PO BID MODERATE PAIN (4-6) 12/19/22 04/19/23 History paroxetine HCl 40 mg tablet 40 mg PO HS Depression 12/19/22 04/19/23 History hydrocodone 5 mg-acetaminophen 325 1 tab PO Q12HP PRN Breakthrough 01/12/23 04/19/23 History mg tablet Pain, Severe oxymetazoline 0.05 % nasal spray 2 spray intranasal Q12HP PRN Nasal 01/12/23 04/19/23 History (Afrin Sinus (oxymetazoline)) Congestion spironolactone 50 mg tablet 50 mg PO DAILY Fluid 03/12/23 04/19/23 History (Aldactone) clopidogrel 75 mg tablet 75 mg PO DAILY Blood Thinner 03/18/23 04/19/23 History fluticasone fur. 100 mcg-umeclid 1 inh inhalation DAILY Copd 03/18/23 04/19/23 History 62.5 mcg-vilant 25 mcg inhalat.powder (Trelegy Ellipta) amitriptyline 10 mg tablet 10 mg PO HS Depression 04/10/23 04/19/23 History bumetanide 0.5 mg tablet 1.5 mg PO BIDL Fluid 04/10/23 04/19/23 History amiodarone 400 mg tablet 400 mg PO BID Heart Rhythm 04/19/23 04/19/23 History clobetasol 0.05 % shampoo 1 applic topical DAILY Skin 04/19/23 04/19/23 History Condition empagliflozin 10 mg tablet 10 mg PO DAILY Diabetes 04/19/23 04/19/23 History (Jardiance) insulin glargine 100 unit/mL (3 10 unit SQ HS Diabetes 04/19/23 04/19/23 History mL) subcutaneous pen (Lantus Solostar U-100 Insulin) levothyroxine 50 mcg tablet 50 mcg PO DAILYDM THYROID 04/19/23 04/19/23 History miconazole nitrate 2 % topical 1 applic topical BID Skin Condition 04/19/23 04/19/23 History cream ondansetron 4 mg disintegrating 4 mg PO Q6HP PRN Nausea And 04/19/23 04/19/23 History tablet Vomiting sodium chloride 0.65 % nasal spray 1 spray intranasal TID DRY NOSE 04/19/23 04/19/23 History aerosol (Deep Sea Nasal) trazodone 100 mg tablet 100 mg PO HS Insomnia 04/19/23 04/19/23 History triamcinolone acetonide 0.1 % 1 applic topical Q12HP PRN Rash 04/19/23 04/19/23 History topical cream New Prescriptions to Start Prescriptions: Allergies Allergy/AdvReac Type Severity Reaction Status Date / Time cephalexin Allergy Verified 04/12/23 13:04 Penicillins Allergy Verified 04/12/23 13:04 Exam Data for Last 24 hours Vital signs and Labs for Last 24 Hours: Temp Pulse Resp BP Pulse Ox O2 Del Method FiO2 98.9 F 65 19 107/56 L 95 BiPAP 40 04/19/23 16:00 04/19/23 16:00 04/19/23 12:10 04/19/23 12:10 04/19/23 12:10 04/19/23 17:00 04/19/23 12:02 Laboratory Results - last 24 hr 04/19/23 08:10: WBC 9.2, RBC 5.09, Hgb 13.2, Hct 44.8, MCV 88.0, MCH 25.9 L, MCHC 29.4 L, RDW 19.2 H, Plt Count 174, MPV 9.1, Neut % (Auto) 80.3 H, Lymph % (Auto) 10.0, [place] % (Auto) 7.9, Eos % (Auto) 1.2, Baso % (Auto) 0.5, Neut # (Auto) 7.4, Lymph # (Auto) 0.9, [place] # (Auto) 0.7, Eos # (Auto) 0.1, Baso # (Au to) 0.1, PT 11.4, INR 1.06, APTT 26.8, Sodium 134 L, Potassium 4.8, Chloride 94 L, Carbon Dioxide 34 H, Anion Gap 10.8, BUN 30 H, Creatinine 1.30 H, Estimated Creat Clear 59, Estimated GFR 40 L, Est GFR ( Amer) 49 L, Glucose 166 H, Calcium 8.7, Magnesium 1.9, Total Bilirubin 0.5, AST 36, ALT 17, Alkaline Phosphatase 71, Troponin I < 0.01, NT-Pro-B Natriuret Pep 4590 H, Total Protein 7.2, Albumin 4.1, Globulin 3.1, Albumin/Globulin Ratio 1.3 04/19/23 08:11: VBG pH 7.20 L, VBG pCO2 86.1 H, VBG pO2 47.5 H, VBG HCO3 32.9 H, VBG Total CO2 35.5 H, VBG O2 Saturation 74.2 H, VBG Base Excess 4.9 H, VBG Lactic Acid 2.1 H 04/19/23 09:24: VBG pH 7.24 L, VBG pCO2 75.3 H, VBG pO2 54.3 H, VBG HCO3 31.8 H, VBG Total CO2 34.1 H, VBG O2 Saturation 83.3 H, VBG Base Excess 4.5 H, VBG Lactic Acid 2.0 04/19/23 09:55: Troponin I 0.01 04/19/23 13:05: Troponin I 0.01 04/19/23 14:05: VBG pH 7.36, VBG pCO2 51.7 H, VBG pO2 177.8 H, VBG HCO3 28.8, VBG Total CO2 30.4 H, VBG O2 Saturation 99.5 H, VBG Base Excess 3.4 H, VBG Lactic Acid 2.2 H I & O for Last 24 hours: Intake & Output 04/16/23 04/17/23 04/18/23 04/19/23 23:59 23:59 23:59 23:59 Output Total 0 / 0 Balance 0 / 0 Weight 97.692 kg Constitutional Constitutional: no acute distress *Routine HEENT Exam Head: Present normocephalic Eye: Present EOMI and PERRL ENT: Present mucous membranes moist *Routine Neck Exam Neck: Present supple; Absent lymphadenopathy *Routine Respiratory Exam Respiratory: Present decreased breath sounds Comments: wheezing *Routine Cardiovascular Exam Cardiovascular: Present RRR *Routine Abdominal Exam Abdominal: Present soft and normoactive bowel sounds; Absent tenderness *Routine Rectal Exam Rectal:: deferred *Routine Genitalia Exam Genitalia:: deferred *Routine Extremities Exam Extremities: Absent cyanosis, clubbing or edema *Routine Skin Exam Skin: Present warm; Absent rash *Routine Neurological Exam Neurological: Present alert and oriented X3 Assessment and Plan *Assessment and plan (1) Acute and chronic respiratory failure: Status: Acute Category: Medical Code(s): J96.20 - Acute and chronic respiratory failure, unspecified whether with hypoxia or hypercapnia (2) Altered mental status: Status: Acute Category: Medical Code(s): R41.82 - Altered mental status, unspecified (3) COPD mixed type: Status: Acute Category: Medical Code(s): J44.9 - Chronic obstructive pulmonary disease, unspecified (4) CAD in cahto artery: Status: Acute Category: Medical Code(s): I25.10 - Atherosclerotic heart disease of cahto coronary artery without angina pectoris (5) Non-STEMI (non-ST elevated myocardial infarction): Status: Acute Category: Medical Code(s): I21.4 - Non-ST elevation (NSTEMI) myocardial infarction Plan O he just went acyclovir patient is a 72-year-old female with past medical history of COPD, heart failure, diabetes mellitus who presents to the hospital due to shortness of breath. Patient is on 3 L nasal cannula at baseline. Patient was also noted to have altered mental status. Patient was found unresponsive this morning. Patient was started on BiPAP and was admitted for further management and evaluation Assessment and plan Acute hypoxic hypercapnic respiratory failure Started patient on BiPAP Consult pulmonary Continue DuoNeb every 6 hours Start Solu-Medrol Will 12 antibiotics for now Acute kidney injury, creatinine on admission 1.3, baseline 0.8 Avoid nephrotoxic medications Atrial fibrillation Diabetes mellitus Hypertension Hyperlipidemia CAD-restart home amiodarone, Coreg, Plavix, Eliquis, Jardiance, long-acting insulin, levothyroxine, Aldactone DVT prophylaxis-on Eliquis
[2023-04-19 18:29] LABS: POC Glucose,Bedside 168 (70-110)
[2023-04-19] MEDS: IPRATROPIUM/ALBUTEROL 3 ML NEB IH (18:30)
[2023-04-19] MEDS: BUDESONIDE 0.5MG/2ML NEB 0.5 MG IH (18:30)
[2023-04-19 18:36] LABS: Reflex Lactic Add Lactic Reflex
[2023-04-19 19:16] LABS: Lactic Acid Follow Up (RFLX 1) 1.2 mmol/L (0.7-2.1)
[2023-04-19] MEDS: HYDROCODONE/APAP 5/325 MG TABLET 1 TAB PO (19:17)
[2023-04-19] MEDS: APIXABAN 5MG TABLET 5 MG PO (20:45)
[2023-04-19] MEDS: BUSPIRONE HCL 10 MG TABLET PO (20:45)
[2023-04-19] MEDS: AMIODARONE 400 MG 400 EACH PO (20:45)
[2023-04-19] MEDS: GABAPENTIN 300MG CAPSULE 300 MG PO (20:45)
[2023-04-19] MEDS: AMITRIPTYLINE 10MG TABLET 10 MG PO (20:45)
[2023-04-19] MEDS: INSULIN GLARGINE 100 UNITS/ML 3ML FLEXPEN 10 UNIT SQ (20:49)
[2023-04-19 21:46] LABS: Microscopic, Urine URINE MICROSCOPIC (MICROSCOPIC)
[2023-04-19 21:50] LABS: Appearance,Urine CLEAR (Clear); Bilirubin,Urine Negative (Negative); Blood, Urine Negative (Negative); Color,Urine YELLOW (Yellow); Glucose,Urine (UA) 3+ (Negative); Ketones,Urine Negative (Negative); Leukocyte Esterase,Urine Negative (Negative); Nitrate,Urine Negative (Negative); PH,Urine 5.5 (5.0-8.5); Protein,Urine Negative (Negative); Specific Gravity, Urine 1.025 (1.005-1.030); Urobilinogen,Urine 0.2 EU/dl (0.2)
[2023-04-19 22:04] LABS: Bacteria,Urine Trace /lpf; WBC,Urine Occasional #/hpf (0-3)
[2023-04-20] VITALS (12 sets, daily range): BP systolic 95–119; BP diastolic 56–64; PULSE 54–90; RESP 18–22; TEMP 36.6–36.8; O2SAT 90–97; BMI 35.0
[2023-04-20] MEDS: IPRATROPIUM/ALBUTEROL 3 ML NEB IH ×2 (00:55→06:26)
--- NOTE | 2023-04-20 05:09 | PC.NURSE ---
Patient has had a good shift and rested well for most of it. Did complain on pain early in the shift but was give medication and rejusted in bed and has not complained since. Patient has tolerated the bipap well and has had no issues with it. Patient is AxO with a purewick on to limit patient getting up on bipap.
[2023-04-20] MEDS: BUDESONIDE 0.5MG/2ML NEB 0.5 MG IH (06:26)
[2023-04-20] MEDS: LEVOTHYROXINE 50MCG (0.05MG) TAB 50 MCG PO (06:39)
[2023-04-20] MEDS: HYDROCODONE/APAP 5/325 MG TABLET 1 TAB PO (06:46)
[2023-04-20] MEDS: CARVEDILOL 3.125MG TABLET 3.125 MG PO (06:47)
[2023-04-20 06:57] LABS: POC Glucose,Bedside 175 (70-110)
[2023-04-20 06:57] LABS: POC Glucose,Bedside 177 (70-110)
[2023-04-20 06:57] LABS: POC Glucose,Bedside 183 (70-110)
[2023-04-20 07:33] LABS: Anion Gap 12.8 mEq/L (5-15); Calcium 8.9 mg/dl (8.4-10.2); Carbon Dioxide 31 mmol/L (22.0-30.0); Chloride 95 mmol/L (98-107); Glucose 181 mg/dl (74-100); Potassium 4.8 mmoL/L (3.5-5.1); Sodium 134 mmol/L (136-145)
[2023-04-20 07:37] LABS: Blood Urea Nitrogen 34 mg/dl (7-17)
[2023-04-20 07:38] LABS: Creatinine Clearance Estimated 80 mL/min (50-200); Estimated Glomerular Filt Rate 61 ml/min (>60); GFR (African American) 74 ML/MIN (>60)
[2023-04-20 07:42] LABS: Basophils % 0.2 % (0.1-2.0); Monocytes # 0.3 K/mm3 (0.1-1.0)
[2023-04-20 07:57] LABS: Eosinophils % 0.2 % (0.1-12.0); Hematocrit 39.2 % (37.0-47.0); Lymphocytes # 0.5 K/mm3 (0.7-4.5); Lymphocytes % 13.9 % (10-50); Mean Corpuscular HGB Conc 29.7 g/dL (31.8-35.4); Mean Corpuscular Hemoglobin 25.6 pg (27.0-31.2); Monocytes % 7.8 % (1.7-9.3); Neutrophils # 2.9 K/mm3 (1.8-7.8); Neutrophils % 77.8 % (37.0-80.0); Platelet Count 149 K/mm3 (142-424); Red Blood Count 4.55 M/mm3 (4.20-5.40); Red Cell Distribution Width 19.2 % (11.5-17.5); White Blood Count 3.8 K/mm3 (4.8-10.8)
[2023-04-20 07:58] LABS: Hemoglobin 11.7 g/dL (12.2-16.2)
[2023-04-20] MEDS: FERROUS SULFATE 325MG TABLET 325 MG PO (09:05)
[2023-04-20] MEDS: AMIODARONE 200MG TABLET 400 MG PO (09:05)
[2023-04-20] MEDS: EMPAGLIFLOZIN 10MG TABLET 10 MG PO (09:05)
[2023-04-20] MEDS: SPIRONOLACTONE 25MG TABLET 50 MG PO (09:06)
[2023-04-20] MEDS: DOCUSATE SODIUM 100 MG CAPSULE PO (09:06)
[2023-04-20] MEDS: CLOPIDOGREL 75MG TAB 75 MG PO (09:06)
[2023-04-20] MEDS: BUMETANIDE 1 MG TABLET 1.5 MG PO (09:06)
[2023-04-20] MEDS: METHYLPREDNISOLONE SOD SUCC 125MG VIAL 60 MG IV (09:08)
[2023-04-20] MEDS: POLYETHYLENE GLYCOL 3350 17 GM PACKET PO (09:08)
[2023-04-20] MEDS: GABAPENTIN 300MG CAPSULE 300 MG PO (09:35)
[2023-04-20] MEDS: APIXABAN 5MG TABLET 5 MG PO (09:35)
[2023-04-20] MEDS: BUSPIRONE HCL 10 MG TABLET PO (09:35)
--- NOTE | 2023-04-20 09:57 | P.PN_ITS ---
Subjective *Date: 04/20/23 *Time: 13:03 Interval history: No acute respiratory events overnight. Patient admits compliance with her BiPAP overnight. Pulmonology Exam Inpatient Vital signs and Labs for Last 24 Hours: Temp Pulse Resp BP Pulse Ox O2 Del Method FiO2 98.1 F 66 20 102/64 L 97 BiPAP 40 04/20/23 08:00 04/20/23 08:00 04/20/23 08:00 04/20/23 08:00 04/20/23 08:00 04/20/23 08:00 04/20/23 06:30 Laboratory Results - last 24 hr 04/19/23 09:55: Troponin I 0.01 04/19/23 13:05: Troponin I 0.01 04/19/23 14:05: VBG pH 7.36, VBG pCO2 51.7 H, VBG pO2 177.8 H, VBG HCO3 28.8, VBG Total CO2 30.4 H, VBG O2 Saturation 99.5 H, VBG Base Excess 3.4 H, VBG Lactic Acid 2.2 H 04/19/23 16:30: POC Glucose 168 H 04/19/23 17:01: Lactate 1.2 04/19/23 20:49: POC Glucose 183 H 04/19/23 21:34: Urine Color Yellow, Urine Appearance Clear, Urine pH 5.5, Ur Specific [place] 1.025, Urine Protein Negative, Urine Glucose (UA) 3+, Urine Ketones Negative, Urine Blood Negative, Urine Nitrate Negative, Urine Bilirubin Negative, Urine Urobilinogen 0.2, Ur Leukocyte Esterase Negative, Urine RBC None, Urine WBC Occasional, Ur Squamous Epith Cells None, Urine Bacteria Trace 04/20/23 06:05: POC Glucose 177 H 04/20/23 06:41: POC Glucose 175 H 04/20/23 07:10: WBC 3.8 L D, RBC 4.55, Hgb 11.7 L D, Hct 39.2, MCV 86.0, MCH 25.6 L, MCHC 29.7 L, RDW 19.2 H, Plt Count 149, MPV 9.0, Neut % (Auto) 77.8, Lymph % (Auto) 13.9, [place] % (Auto) 7.8, Eos % (Auto) 0.2, Baso % (Auto) 0.2, Neut # (Auto) 2.9, Lymph # (Auto) 0.5 L, [place] # (Auto) 0.3, Eos # (Auto) 0.0, Baso # (Auto) 0.0, Sodium 134 L, Potassium 4.8, Chloride 95 L, Carbon Dioxide 31 H, Anion Gap 12.8, BUN 34 H, Creatinine 0.90 D, Estimated Creat Clear 80, Estimated GFR 61, Est GFR ( Amer) 74 D, Glucose 181 H, Calcium 8.9 I & O for Labs for Last 24 Hours: Intake & Output 04/17/23 04/18/23 04/19/23 04/20/23 23:59 23:59 23:59 23:59 Intake Total 150 / 150 Output Total 0 / 0 150 / 150 Balance 0 / 150 0 / 0 Weight 215 lb 6 oz 223 lb 3.982 oz Microbiology Reports for the Last 24 Hours: Microbiology 03/12/23 16:30 Nose MRSA Culture - Final 03/12/23 11:30 Blood Blood Culture - Preliminary 03/12/23 11:15 Blood Blood Culture - Preliminary Constitutional: Present moderate distress Head: Present normocephalic and atraumatic ENT: Present normal exam, normal oropharynx and mucous membranes moist Neck: Present normal inspection and full ROM Respiratory: Present respiratory distress and able to speak in complete sentences; Absent wheezes Cardiac: Present S1/S2, Tachycardia and radial pulses present GI: Present soft and distention; Absent tenderness or guarding Rectal (female): Present deferred (female): Present deferred Skin: Present intact; Absent cyanosis or jaundice Neuro: Present alert, awake and oriented x 3 Extremities: Present normal inspection; Absent clubbing or cyanosis Psychiatric: Present normal affect and cooperative Assessment and Plan *Assessment and plan (1) Acute and chronic respiratory failure: Status: Acute Category: Medical Code(s): J96.20 - Acute and chronic respiratory failure, unspecified whether with hypoxia or hypercapnia (2) COPD mixed type: Status: Acute Category: Medical Code(s): J44.9 - Chronic obstructive pulmonary disease, unspecified Plan Ms. Sena is a 72-year-old female with a greater than [id number] smoking history, COPD, chronic hypoxic respiratory failure, sleep apnea, hypercarbic respiratory failure presented with worsening mentation found to be in hypercarbic respiratory failure needing noninvasive ventilatory support and pulmonary was called for further evaluation and management. VBG on admission showed severe hypercarbic respiratory failure with a pH of 7.23 with a pCO2 86.1, settings changed to BiPAP at 20/10 with a rate of 22 with subsequent VBG showed improving hypercarbic respiratory failure with a pH of 7.36 and pCO2 51.7. Chest x-ray upon admission did not show any significant airspace disease. No evidence of leukocytosis. Afebrile but hemodynamically stable. On initial examination patient altered but significant wheezing noted on auscultation. Interval update: Patient remains on BiPAP since yesterday. Subsequent VBG showed improvement in her hypercarbic respiratory failure. Plan: Continue BiPAP therapy at 22/10, rate of 22 while asleep for her sleep apnea. Continue oxygen supplementation to maintain O2 saturation below 90% and above Wean steroids to prednisone 40 mg daily x 5 days DuoNebs every 6 hours along with Pulmicort every 12 scheduled We will hold off on initiating antibiotics at this point of time. # Thank you for involving pulmonary in this patient care. Patient can be discharged from pulmonary standpoint we will follow the patient in 2 weeks with a ABG prior to clinic visit, given patient's recurrent admissions for hypercarbic respiratory failure despite documented compliance with her noninvasive ventilator therapy. Her settings will be changed to 22/10 on her discharge and will follow with ABG to further determine the possiblility of suboptimally treated sleep apnea as an etiology of her recurrent hypercarbic respiratory failure.
--- NOTE | 2023-04-20 13:47 | P.DS_ITS ---
General Admission date:: 04/19/23 Discharge date: 04/20/23 HPI HPI HPI: O he just went acyclovir patient is a 72-year-old female with past medical history of COPD, heart failure, diabetes mellitus who presents to the hospital due to shortness of breath. Patient is on 3 L nasal cannula at baseline. Patient was also noted to have altered mental status. Patient was found unresponsive this morning. Patient was started on BiPAP and was admitted for further management and evaluation Hospital Course Hospital Course Hospital Course: patient is a 72-year-old female with past medical history of COPD, heart failure, diabetes mellitus who presents to the hospital due to shortness of breath. Patient is on 3 L nasal cannula at baseline. Patient was also noted to have altered mental status. Patient was found unresponsive this morning. Patient was started on BiPAP and was admitted for further management and evaluation Acute hypoxic hypercapnic respiratory failure - improved DC on PO prednisone, Pulmicort, continue home trelogy Acute kidney injury - improved Atrial fibrillation - stable Diabetes mellitus Hypertension Hyperlipidemia CAD-restart home amiodarone, Coreg, Plavix, Eliquis, Jardiance, long-acting insulin, levothyroxine, Aldactone DVT prophylaxis-on Eliquis Exam Data for Last 24 hours Vital signs and Labs for Last 24 Hours: Temp Pulse Resp BP Pulse Ox O2 Del Method O2 Flow Rate 98.3 F 69 18 100/64 L 94 L Nasal Cannula 2 04/20/23 12:45 04/20/23 12:00 04/20/23 12:00 04/20/23 12:00 04/20/23 12:00 04/20/23 13:00 04/20/23 13:00 FiO2 40 04/20/23 06:30 Laboratory Results - last 24 hr 04/19/23 13:05: Troponin I 0.01 04/19/23 14:05: VBG pH 7.36, VBG pCO2 51.7 H, VBG pO2 177.8 H, VBG HCO3 28.8, VBG Total CO2 30.4 H, VBG O2 Saturation 99.5 H, VBG Base Excess 3.4 H, VBG Lactic Acid 2.2 H 04/19/23 16:30: POC Glucose 168 H 04/19/23 17:01: Lactate 1.2 04/19/23 20:49: POC Glucose 183 H 04/19/23 21:34: Urine Color Yellow, Urine Appearance Clear, Urine pH 5.5, Ur Specific [place] 1.025, Urine Protein Negative, Urine Glucose (UA) 3+, Urine Ketones Negative, Urine Blood Negative, Urine Nitrate Negative, Urine Bilirubin Negative, Urine Urobilinogen 0.2, Ur Leukocyte Esterase Negative, Urine RBC None, Urine WBC Occasional, Ur Squamous Epith Cells None, Urine Bacteria Trace 04/20/23 06:05: POC Glucose 177 H 04/20/23 06:41: POC Glucose 175 H 04/20/23 07:10: WBC 3.8 L D, RBC 4.55, Hgb 11.7 L D, Hct 39.2, MCV 86.0, MCH 25.6 L, MCHC 29.7 L, RDW 19.2 H, Plt Count 149, MPV 9.0, Neut % (Auto) 77.8, Lymph % (Auto) 13.9, [place] % (Auto) 7.8, Eos % (Auto) 0.2, Baso % (Auto) 0.2, Neut # (Auto) 2.9, Lymph # (Auto) 0.5 L, [place] # (Auto) 0.3, Eos # (Auto) 0.0, Baso # (Auto) 0.0, Sodium 134 L, Potassium 4.8, Chloride 95 L, Carbon Dioxide 31 H, Anion Gap 12.8, BUN 34 H, Creatinine 0.90 D, Estimated Creat Clear 80, Estimated GFR 61, Est GFR ( Amer) 74 D, Glucose 181 H, Calcium 8.9 I & O for Last 24 hours: Intake & Output 04/17/23 04/18/23 04/19/23 04/20/23 23:59 23:59 23:59 23:59 Intake Total 150 / 150 Output Total 0 / 0 150 / 150 Balance 0 / 150 0 / 0 Weight 97.692 kg 101.264 kg Constitutional Constitutional: no acute distress *Routine HEENT Exam Head: Present normocephalic Eye: Present EOMI and PERRL ENT: Present mucous membranes moist *Routine Neck Exam Neck: Present supple; Absent lymphadenopathy *Routine Respiratory Exam Respiratory: Present CTA bilaterally and distant breath sounds *Routine Cardiovascular Exam Cardiovascular: Present RRR *Routine Abdominal Exam Abdominal: Present soft and normoactive bowel sounds; Absent tenderness *Routine Extremities Exam Extremities: Absent cyanosis, clubbing or edema *Routine Skin Exam Skin: Present warm; Absent rash *Routine Neurological Exam Neurological: Present alert and oriented X3 Results Data Completed and Pending Labs on day of discharge: Labs from last 24 hours 04/20/23 04/20/23 04/20/23 07:10 06:41 06:05 WBC 3.8 L D RBC 4.55 Hgb 11.7 L D Hct 39.2 MCV 86.0 MCH 25.6 L MCHC 29.7 L RDW 19.2 H Plt Count 149 MPV 9.0 Neut % (Auto) 77.8 Lymph % (Auto) 13.9 [place] % (Auto) 7.8 Eos % (Auto) 0.2 Baso % (Auto) 0.2 Neut # (Auto) 2.9 Lymph # (Auto) 0.5 L [place] # (Auto) 0.3 Eos # (Auto) 0.0 Baso # (Auto) 0.0 VBG pH VBG pCO2 VBG pO2 VBG HCO3 VBG Total CO2 VBG O2 Saturation VBG Base Excess VBG Lactic Acid Sodium 134 L Potassium 4.8 Chloride 95 L Carbon Dioxide 31 H Anion Gap 12.8 BUN 34 H Creatinine 0.90 D Estimated Creat Clear 80 Estimated GFR 61 Est GFR ( Amer) 74 D Glucose 181 H POC Glucose 175 H 177 H Lactate Calcium 8.9 Troponin I Urine Color Urine Appearance Urine pH Ur Specific [place] Urine Protein Urine Glucose (UA) Urine Ketones Urine Blood Urine Nitrate Urine Bilirubin Urine Urobilinogen Ur Leukocyte Esterase Urine RBC Urine WBC Ur Squamous Epith Cells Urine Bacteria 04/19/23 04/19/23 04/19/23 21:34 20:49 17:01 WBC RBC Hgb Hct MCV MCH MCHC RDW Plt Count MPV Neut % (Auto) Lymph % (Auto) [place] % (Auto) Eos % (Auto) Baso % (Auto) Neut # (Auto) Lymph # (Auto) [place] # (Auto) Eos # (Auto) Baso # (Auto) VBG pH VBG pCO2 VBG pO2 VBG HCO3 VBG Total CO2 VBG O2 Saturation VBG Base Excess VBG Lactic Acid Sodium Potassium Chloride Carbon Dioxide Anion Gap BUN Creatinine Estimated Creat Clear Estimated GFR Est GFR ( Amer) Glucose POC Glucose 183 H Lactate 1.2 Calcium Troponin I Urine Color Yellow Urine Appearance Clear Urine pH 5.5 Ur Specific [place] 1.025 Urine Protein Negative Urine Glucose (UA) 3+ Urine Ketones Negative Urine Blood Negative Urine Nitrate Negative Urine Bilirubin Negative Urine Urobilinogen 0.2 Ur Leukocyte Esterase Negative Urine RBC None Urine WBC Occasional Ur Squamous Epith Cells None Urine Bacteria Trace 04/19/23 04/19/23 04/19/23 16:30 14:05 13:05 WBC RBC Hgb Hct MCV MCH MCHC RDW Plt Count MPV Neut % (Auto) Lymph % (Auto) [place] % (Auto) Eos % (Auto) Baso % (Auto) Neut # (Auto) Lymph # (Auto) [place] # (Auto) Eos # (Auto) Baso # (Auto) VBG pH 7.36 VBG pCO2 51.7 H VBG pO2 177.8 H VBG HCO3 28.8 VBG Total CO2 30.4 H VBG O2 Saturation 99.5 H VBG Base Excess 3.4 H VBG Lactic Acid 2.2 H Sodium Potassium Chloride Carbon Dioxide Anion Gap BUN Creatinine Estimated Creat Clear Estimated GFR Est GFR ( Amer) Glucose POC Glucose 168 H Lactate Calcium Troponin I 0.01 Urine Color Urine Appearance Urine pH Ur Specific [place] Urine Protein Urine Glucose (UA) Urine Ketones Urine Blood Urine Nitrate Urine Bilirubin Urine Urobilinogen Ur Leukocyte Esterase Urine RBC Urine WBC Ur Squamous Epith Cells Urine Bacteria DS: Diagnosis Discharge Diagnosis (1) Acute and chronic respiratory failure: Status: Acute Code(s): J96.20 - Acute and chronic respiratory failure, unspecified whether with hypoxia or hypercapnia (2) COPD mixed type: Status: Acute Code(s): J44.9 - Chronic obstructive pulmonary disease, unspecified Meds Home Medications and Allergies Home Medications Medication Instructions Recorded Confirmed Type ergocalciferol (vitamin D2) 1,250 1,250 mcg PO QOW Supplement 08/12/20 04/19/23 History mcg (50,000 unit) capsule rosuvastatin 10 mg tablet 10 mg PO HS Cholesterol 08/12/20 04/19/23 History acetaminophen 500 mg tablet 1,000 mg PO Q6HP PRN Fever Or Pain 12/18/22 04/19/23 History (Tylenol Extra Strength) albuterol sulfate 90 mcg/actuation 2 puff inhalation Q4HP PRN 12/18/22 04/19/23 History aerosol inhaler Shortness Of Breath Or Wheezing apixaban 5 mg tablet (Eliquis) 5 mg PO BID Blood Thinner/DVT 12/18/22 04/19/23 History Prophylaxis buspirone 10 mg tablet 10 mg PO BID Anxiety 12/18/22 04/19/23 History carvedilol 3.125 mg tablet 3.125 mg PO BIDWMEAL High Blood 12/18/22 04/19/23 History Pressure docusate sodium 100 mg tablet 100 mg PO BID Constipation 12/18/22 04/19/23 History ferrous sulfate 324 mg (65 mg 324 mg PO DAILY Supplement 12/18/22 04/19/23 History iron) tablet,delayed release icosapent ethyl 1 gram capsule 1 g PO BID Cholesterol 12/18/22 04/19/23 History (Vascepa) insulin lispro 100 unit/mL 0 sliding scale dose SQ ACHS 12/18/22 04/19/23 History subcutaneous pen Diabetes multivitamin 1 tab PO DAILY Supplement 12/18/22 04/19/23 History nitroglycerin 0.4 mg sublingual 0.4 mg sublingual Q5MINP PRN Chest 12/18/22 04/19/23 History tablet Pain omeprazole 40 mg capsule,delayed 40 mg PO HS Acid Reflux 12/18/22 04/19/23 History release polyethylene glycol 3350 17 gram 17 g PO DAILY Constipation 12/18/22 04/19/23 History oral powder packet (Miralax) acetaminophen 500 mg tablet 500 mg PO AC Pain 12/19/22 04/19/23 History albuterol sulfate 2.5 mg/3 mL 2.5 mg inhalation Q4HP PRN 12/19/22 04/19/23 History (0.083 %) solution for nebulization shortness of air or wheezing gabapentin 300 mg capsule 300 mg PO BID MODERATE PAIN (4-6) 12/19/22 04/19/23 History paroxetine HCl 40 mg tablet 40 mg PO HS Depression 12/19/22 04/19/23 History hydrocodone 5 mg-acetaminophen 325 1 tab PO Q12HP PRN Breakthrough 01/12/23 04/19/23 History mg tablet Pain, Severe oxymetazoline 0.05 % nasal spray 2 spray intranasal Q12HP PRN Nasal 01/12/23 04/19/23 History (Afrin Sinus (oxymetazoline)) Congestion spironolactone 50 mg tablet 50 mg PO DAILY Fluid 02/05/24 03/14/24 History (Aldactone) clopidogrel 75 mg tablet 75 mg PO DAILY Blood Thinner 03/18/23 04/19/23 History fluticasone fur. 100 mcg-umeclid 1 inh inhalation DAILY Copd 03/18/23 04/19/23 History 62.5 mcg-vilant 25 mcg inhalat.powder (Trelegy Ellipta) amitriptyline 10 mg tablet 10 mg PO HS Depression 04/10/23 04/19/23 History bumetanide 0.5 mg tablet 1.5 mg PO BIDL Fluid 04/10/23 04/19/23 History amiodarone 400 mg tablet 400 mg PO BID Heart Rhythm 04/19/23 04/19/23 History clobetasol 0.05 % shampoo 1 applic topical DAILY Skin 04/19/23 04/19/23 History Condition empagliflozin 10 mg tablet 10 mg PO DAILY Diabetes 04/19/23 04/19/23 History (Jardiance) insulin glargine 100 unit/mL (3 10 unit SQ HS Diabetes 04/19/23 04/19/23 History mL) subcutaneous pen (Lantus Solostar U-100 Insulin) levothyroxine 50 mcg tablet 50 mcg PO DAILYDM THYROID 04/19/23 04/19/23 History miconazole nitrate 2 % topical 1 applic topical BID Skin Condition 04/19/23 04/19/23 History cream ondansetron 4 mg disintegrating 4 mg PO Q6HP PRN Nausea And 04/19/23 04/19/23 History tablet Vomiting sodium chloride 0.65 % nasal spray 1 spray intranasal TID DRY NOSE 04/19/23 04/19/23 History aerosol ([place] Nasal) trazodone 100 mg tablet 100 mg PO HS Insomnia 04/19/23 04/19/23 History triamcinolone acetonide 0.1 % 1 applic topical Q12HP PRN Rash 04/19/23 04/19/23 History topical cream budesonide 0.5 mg/2 mL suspension 0.5 mg (2 mL) inhalation BIDRT 30 04/20/23 Rx for nebulization (Pulmicort) days #120 mL prednisone 50 mg tablet 50 mg PO DAILY 5 days #5 tabs 04/20/23 Rx New Prescriptions to Start Prescriptions: budesonide [Pulmicort] Margy Quijano prednisone Margy Quijano Allergies Allergy/AdvReac Type Severity Reaction Status Date / Time cephalexin Allergy Verified 04/12/23 13:04 Penicillins Allergy Verified 04/12/23 13:04 Discharge Plan Disposition Patient Disposition: er Intermediate Care Fac Condition: Good Discharge Order Discharge Orders: Discharge Order (Routine); Ordered 04/20/23 Ordered By: Margy Quijano Follow up Plan Follow up with: Isha Paredes MD [Physician] - 05/07/23 1:15 pm Prescriptions/Medication Reconciliation: New budesonide [Pulmicort] 0.5 mg/2 mL Suspension For Nebulization 0.5 mg inhalation BIDRT 30 Days Qty: 120 0RF prednisone 50 mg tablet 50 mg PO DAILY 5 Days Qty: 5 0RF Continued ergocalciferol (vitamin D2) 1,250 mcg (50,000 unit) capsule 1,250 mcg PO QOW Patient Comments: TAKE 1 CAPSULE BY MOUTH EVERY TWO WEEKS (TWICE A MONTH) rosuvastatin 10 mg tablet 10 mg PO HS amitriptyline 10 mg tablet 10 mg PO HS bumetanide 0.5 mg tablet 1.5 mg PO BIDL albuterol sulfate 90 mcg/actuation HFA aerosol inhaler 2 puff INHALATION Q4HP PRN (Reason: Shortness Of Breath Or Wheezing) carvedilol 3.125 mg tablet 3.125 mg PO BIDWMEAL multivitamin Tablet 1 tab PO DAILY polyethylene glycol 3350 [Miralax] 17 gram Powder In Packet 17 g PO DAILY omeprazole 40 mg Capsule,Delayed Release(Dr/Ec) 40 mg PO HS icosapent ethyl [Vascepa] 1 gram Capsule 1 g PO BID buspirone 10 mg Tablet 10 mg PO BID docusate sodium 100 mg Tablet 100 mg PO BID ferrous sulfate 324 mg (65 mg iron) Tablet,Delayed Release (Dr/Ec) 324 mg PO DAILY Eliquis 5 mg Tablet 5 mg PO BID acetaminophen [Tylenol Extra Strength] 500 mg Tablet 1,000 mg PO Q6HP PRN (Reason: Fever Or Pain) nitroglycerin 0.4 mg Tablet, Sublingual 0.4 mg SUBLINGUAL Q5MINP PRN (Reason: Chest Pain) Rx Instructions: do not exceed 3 doses per episode insulin lispro 100 unit/mL Insulin Pen 0 sliding scale dose SQ ACHS Rx Instructions: 101-150 3 UNITS 151-200 4 UNITS 201-250 6 UNITS 251-300 9 UNITS 301-350 12 UNITS 351-400 15 UNITS albuterol sulfate 2.5 mg /3 mL (0.083 %) Solution For Nebulization 2.5 mg inhalation Q4HP PRN (Reason: shortness of air or wheezing) acetaminophen 500 mg Tablet 500 mg PO AC gabapentin 300 mg Capsule 300 mg PO BID paroxetine HCl 40 mg Tablet 40 mg PO HS oxymetazoline [Afrin Sinus (oxymetazoline)] 0.05 % [place],Non-Aerosol 2 spray INTRANASAL Q12HP PRN (Reason: Nasal Congestion) hydrocodone-acetaminophen 5-325 mg tablet 1 tab PO Q12HP PRN (Reason: Breakthrough Pain, Severe) spironolactone [Aldactone] 50 mg Tablet 50 mg PO DAILY clopidogrel 75 mg Tablet 75 mg PO DAILY Trelegy Ellipta 100-62.5-25 mcg Blister With Device 1 inh INHALATION DAILY miconazole nitrate 2 % Cream 1 applic TOPICAL BID [place] Nasal 0.65 % Aerosol,[place] 1 spray intranasal TID clobetasol 0.05 % Shampoo 1 applic TOPICAL DAILY triamcinolone acetonide 0.1 % Cream 1 applic TOPICAL Q12HP PRN (Reason: Rash) trazodone 100 mg Tablet 100 mg PO HS levothyroxine 50 mcg Tablet 50 mcg PO DAILYDM ondansetron 4 mg Tablet,Disintegrating 4 mg PO Q6HP PRN (Reason: Nausea And Vomiting) insulin glargine [Lantus Solostar U-100 Insulin] 100 unit/mL (3 mL) Insulin Pen 10 unit SQ HS amiodarone 400 mg tablet 400 mg PO BID Jardiance 10 mg tablet 10 mg PO DAILY Problem Reconciliation Problems Reviewed?: Yes Patient Discharge Instructions ACTIVITY: Ambulate as tolerated DIET: continue same diet Patient Instructions: Chronic Obstructive Pulmonary Disease Providers Primary Care Provider: Provider,Referral Admit Provider: Margy Quijano Attending Provider: Margy Quijano
== END 2023-04-20 14:55 | DRG 189 ==
LOC: ER 08:04 → ICU 10:28 → 2ND 16:19 → ICU 16:32
PROVIDERS: Emergency Medicine; Internal Medicine Pulmonary Disease; Admitting Provider Internal Medicine; Emergency Provider Emergency Medicine; Visit Provider Internal Medicine
DX: N17.9 Acute kidney failure, unspecified; J96.21 Acute and chronic respiratory failure with hypoxia; I42.9 Cardiomyopathy, unspecified; I50.22 Chronic systolic (congestive) heart failure; J96.22 Acute and chronic respiratory failure with hypercapnia; I25.10 Atherosclerotic heart disease of native coronary artery without angina pectoris; E11.9 Type 2 diabetes mellitus without complications; Z79.899 Other long term (current) drug therapy; Z99.81 Dependence on supplemental oxygen; E78.5 Hyperlipidemia, unspecified; Z91.199 Patient's noncompliance with other medical treatment and regimen due to unspecified reason; Z79.4 Long term (current) use of insulin; I25.2 Old myocardial infarction; I11.0 Hypertensive heart disease with heart failure; M19.90 Unspecified osteoarthritis, unspecified site; Z95.5 Presence of coronary angioplasty implant and graft; K21.9 Gastro-esophageal reflux disease without esophagitis; I27.20 Pulmonary hypertension, unspecified; I48.91 Unspecified atrial fibrillation; J44.9 Chronic obstructive pulmonary disease, unspecified; M79.7 Fibromyalgia
CPT/HCPCS: 36415; 70450; 71045; 80048; 80053; 81001; 82803; 82962; 83605; 83735; 83880; 84484; 85025; 85610; 85730; 87040; 93005; 94640; 94660; 99291; J3475

== ENCOUNTER 2023-04-25 09:41 | Day surgery (SDC) | payer MEDICARE, MEDICAID, SELFPAY ==
[2023-04-23 12:26] VITALS: BMI 35.9
[2023-04-25] VITALS (9 sets, daily range): BP systolic 118–165; BP diastolic 63–94; PULSE 42–52; RESP 18–19; TEMP 36.2–36.3; O2SAT 85–100
--- NOTE | 2023-04-25 10:20 | CA_ITS ---
APPROVED REPORT EXAM: Comprehensive 2D, Doppler, and color-flow Echocardiogram Profiler Operator: Sandra SoteloGIBSONVanesa Ht: 5 ft 4 in Wt: 224lbs BSA: 2.05 BP: 112/69 mmHg Indications: AIFIB WITH CARDIOVERISON Procedure After obtaining informed consent, patient underwent transesophageal echo in the [facility]. Type of Sedation : MAC Sedation was administered by Isaiah SoaresNNadia Sedation start time: 12:20 Case end Time: 12:35 Sedation was achieved intravenously with: Propofol () Transesophageal probe was inserted and advanced into esophagus without difficulty by Dr. Ziggy Hitchcock. The JANNETH was performed without complications. Synchronized Cardioversion acheived with 150 Joules after 1 attempt(s). Rhythm following Synchronized Cardioversion: Sinus Bradycardia, frequent ectopy Throughout the procedure, the blood pressure, pulse oximetry, cardiac rhythm, and rate were monitored. The patient tolerated the procedure without adverse effects. Recovery from conscious sedation was uneventful and vital signs were stable. Left Ventricle The left ventricle is normal size. The left ventricular systolic function is normal. The left ventricular ejection fraction is within the normal range. There is increased LV wall thickness. There is normal LV segmental wall motion. LVEF is 50-55%. Right Ventricle Right ventricle is moderately dilated. Right ventricle is moderately hypokinetic. Atria Left atrium is moderately dilated. No thrombus is visualized in the left atrium or appendage. Right atrium is mildly dilated. Interatrial septum is intact without evidence of ASD or PFO. Aortic Valve The aortic valve is mildly thickened. Aortic valve is trileaflet. There is no aortic valvular stenosis. No aortic regurgitation is present. Mitral Valve The mitral valve leaflets are mildly thickened. Mild mitral regurgitation. No evidence of mitral valve stenosis. Tricuspid Valve The tricuspid valve leaflets are thin and pliable. Mild tricuspid regurgitation. =RVSP is 35 mmHg + RA pressure. Pulmonic Valve The pulmonary valve is normal in structure. Trace pulmonic regurgitation. Great Vessels The aortic root is normal in size. The ascending aorta is normal in size. There is calcification noted in the descending aorta. Pericardium There is no pericardial effusion. Other Information Study Quality: Fair Conclusion Normal LV systolic function. Moderate RV dilation with moderate reduction in RV function. Biatrial dilation. No thrombus is visualized in the left atrium or appendage. Following JANNETH, the patient underwent successful DCCV with 150 J, after which she converted to sinus bradycardia (HR 40s) with frequent ectopy and junctional beats. Post procedurally, she had repeat serial repeat EKGs to evaluate her bradycardia. No evidence of high degree AV block were noted. Nonetheless, her home carvedilol was stopped. She was also discharged on 2-week bioinformatics programmer (which offers real-time cardiac monitoring). Electronically signed by : Radha Hitchcock MD 04/26/2023 13:22:11
--- NOTE | 2023-04-25 10:31 | ECG_ITS ---
APPROVED REPORT Exam: Resting ECG HR:51 bpm ECG Measurements Heart Rate 51 AXES QRSd 113 QRS 88 QT 400 T 76 QTc 377 Conclusion ATRIAL FIBRILLATION WITH SLOW VENTRICULAR RESPONSE MODERATE INTRAVENTRICULAR CONDUCTION DELAY [110+ ms QRS DURATION] NONSPECIFIC ST & T-WAVE ABNORMALITY ABNORMAL RHYTHM ECG UNCONFIRMED REPORT Electronically signed by : Kristian Bynum MD 04/25/2023 21:10:16
[2023-04-25 10:48] LABS: POC Glucose,Bedside 170 (70-110)
[2023-04-25] MEDS: LACTATED RINGERS 1000ML 1,000 ML 25 ML IV (10:48)
--- NOTE | 2023-04-25 11:39 | P.PNANES_ITS ---
[facility] Disclaimer: The information contained in this section may have been updated after the patient was seen, as this information can be updated by other users. Medical History Heart attack Encounter for screening for malignant neoplasm of lung COPD mixed type History of smoking 30 or more pack years Dyspnea Bilateral hearing loss due to cerumen impaction Encounter for removal of nasal packing CAD in [place] artery Cardiomyopathy Non-STEMI (non-ST elevated myocardial infarction) Right ventricular dilation Coronary artery disease HFrEF (heart failure with reduced ejection fraction) Pneumonia Diabetes mellitus, type 2 Iron deficiency anemia Pulmonary hypertension Osteoporosis Major depressive disorder Heart failure Depression Lymphedema Insomnia Class 2 obesity due to excess calories with body mass index (BMI) of 39.0 to 39.9 in adult Fibromyalgia Congestive heart failure Atrial fibrillation Anxiety HTN (hypertension) HLD (hyperlipidemia) COPD (chronic obstructive pulmonary disease) BMI 30.0-30.9,adult Osteoarthritis Callus of foot Paresthesia of both lower extremities Onychodystrophy Onychomycosis Diabetic foot Surgical History History of coronary artery stent placement History of bladder surgery H/O: hysterectomy H/O hernia repair Family History Other Diabetes Hyperlipidemia Hypertension No significant family history Social History Smoking Status: Former smoker tobacco type: cigarettes packs per day: 2 alcohol intake: never substance use type: denies use current occupational status: retired and disabled Travel in the last 8 weeks: None housing: assisted lives independently: No assisted: Yes caffeine: Yes [facility] Anesthesia Checklist Patient Identification Patient Identification: Arm Band and Verbal (Name & ) Structural Data Admitted From: Home Planned Operative Procedure/s: JANNETH with cardioversion Consent for Planned Operative Procedure(s) Verified: Yes NPO Status Verified Time NPO: 00:00 Chart Verification Results Verified: CBC and BMP Additional verifications Anesthesia Reactions: No Airway Assessment Mallampati Score:: Class II C-Spine Mobility Assessed: Yes TMJ Mobility Assessed: Yes Dentition: Edentulous Neurological Assessment Level of Consciousness: Awake Hx Seizures: No Numbness or tingling in extremities: No Anesthesia Plan Anesthesia Risk discussed: Yes Anesthesia Plan: Verified ASA Class: IV Anesthesia Type: MAC
--- NOTE | 2023-04-25 12:26 | SUR.OPER ---
1222- 150j shock delivered per Dr. Lovelace. patient now in sinus jesus alberto. ekg ordered per dr lovelace. VSS at this time
--- NOTE | 2023-04-25 12:32 | ECG_ITS ---
APPROVED REPORT Exam: Resting ECG HR:46 bpm ECG Measurements Heart Rate 46 AXES QRSd 95 QRS 72 QT 363 T 95 QTc 322 Conclusion SINUS BRADYCARDIA WITH 2ND DEGREE AV BLOCK, 2:1 OR MOBITZ TYPE II LOW QRS VOLTAGE IN EXTREMITY LEADS [QRS DEFLECTION < 0.5 mV IN LIMB LEADS] NONSPECIFIC ST & T-WAVE ABNORMALITY CRITICAL TEST RESULT UNCONFIRMED REPORT Electronically signed by : Kristian Bynum MD 04/25/2023 21:09:51
--- NOTE | 2023-04-25 13:40 | SUR.PHASEII ---
report called to jordyn RN at [facility].
--- NOTE | 2023-04-25 14:05 | SUR.PHASEII ---
1303: Dr. Hitchcock at bedside reviewing EKG's and pt status. Ok to discharge back to alf and see in office sunday per Dr. Hitchcock.
== END 2023-04-25 13:50 | disposition home or self-care (01) ==
PROVIDERS: PCP Internal Medicine Adolescent Medicine; Visit Provider Internal Medicine
DX: I48.20 Chronic atrial fibrillation, unspecified (principal); I25.118 Atherosclerotic heart disease of native coronary artery with other forms of angina pectoris; E78.5 Hyperlipidemia, unspecified; I11.0 Hypertensive heart disease with heart failure; Z79.899 Other long term (current) drug therapy; Z79.4 Long term (current) use of insulin; Z79.01 Long term (current) use of anticoagulants; Z95.5 Presence of coronary angioplasty implant and graft; I50.22 Chronic systolic (congestive) heart failure; J44.9 Chronic obstructive pulmonary disease, unspecified; I25.2 Old myocardial infarction; I27.20 Pulmonary hypertension, unspecified
CPT/HCPCS: 82962; 92960; 93005; 93270; 93312; 93319

== ENCOUNTER 2023-06-07 11:41 | Outpatient (CLI) | payer MEDICARE, MEDICAID, SELFPAY ==
--- NOTE | 2023-06-07 11:50 | XR_ITS ---
FINAL REPORT CLINICAL HISTORY: Left knee pain FINDINGS: There is no acute fracture or dislocation. There is moderate to severe tricompartment degenerative change. The bones are osteopenic. There is no soft tissue abnormality. IMPRESSION: Degenerative changes as above. Reviewed, Interpreted and Dictated by Jaqueline Hubbard MD Transcribed by Cass Pérez Authenticated and [facility]
--- NOTE | 2023-06-07 11:50 | XR_ITS ---
FINAL REPORT CLINICAL HISTORY: right shoulder pain FINDINGS: Two views show no evidence of acute displaced fracture or dislocation of the visualized bony architecture. There are severe degenerative changes of the glenohumeral joint. There are mild degenerative changes of the AC joint. IMPRESSION: Degenerative changes as above. Reviewed, Interpreted and Dictated by Jaqueline Hubbard MD Transcribed by Cass Pérez Authenticated and [facility]
== END 2023-06-07 23:59 | disposition home or self-care (01) ==
LOC: RAD 11:43
PROVIDERS: PCP Internal Medicine; Visit Provider Orthopaedic Surgery
DX: M25.511 Pain in right shoulder (principal); M25.562 Pain in left knee
CPT/HCPCS: 73030; 73562

== ENCOUNTER 2023-06-11 13:51 | Outpatient (CLI) | payer MEDICARE, MEDICAID, SELFPAY ==
--- NOTE | 2023-06-11 13:55 | CT_ITS ---
FINAL REPORT TECHNIQUE: Thin section axial images were obtained from the lung apices to the upper abdomen by computed tomography. Reformatted images were obtained and reviewed. This study was performed with techniques to keep radiation doses al low as reasonably achievable (ALARA). Individualized dose reduction techniques using automated exposure control or adjustment of mA and/or kV according to the patient's size were employed. CLINICAL HISTORY: lung cancer screening, former smoker, quit 1.5 years ago, smoked 1/2ppd for 59 years COMPARISON: None FINDINGS: CHEST CT LOW DOSE 73-year-old female, former smoker who quit 1.5 months ago, [id number] history. CTDI vol (mGy): 2.9 DLP (mGy-cm): 96.38 There is no axillary adenopathy. There is no mediastinal or hilar mass or adenopathy. The heart is normal in size. Severe coronary artery calcifications are present, responsible for the S designation in this patient.. There is no pericardial or pleural effusion. There is mild emphysema and mild pulmonary scarring. Lung window images demonstrate there is a 2.8 x 2.1 cm medial left lower lobe nodular opacity, favor atelectasis or scar. There are ground glass opacities in the left lung base. Limited images of the upper abdomen are unremarkable. IMPRESSION: Lung-RADS category 0S. Recommend 1 to 3-month follow-up with chest CT. Reviewed, Interpreted and Dictated by Delfino Ruth III, MD Transcribed by Paula Schmidt Authenticated and [facility]
== END 2023-06-11 23:59 | disposition home or self-care (01) ==
LOC: RAD 13:53
PROVIDERS: PCP Internal Medicine; Visit Provider Internal Medicine Pulmonary Disease
DX: F17.210 Nicotine dependence, cigarettes, uncomplicated (principal); Z12.2 Encounter for screening for malignant neoplasm of respiratory organs
CPT/HCPCS: 71271

== ENCOUNTER 2023-06-14 10:23 | Outpatient (CLI) | payer MEDICARE, MEDICAID, SELFPAY ==
[2023-06-14 11:50] VITALS: PULSE 57
[2023-06-14] MEDS: ALBUTEROL 0.083% 2.5 MG/3 ML NEB IH (11:53)
[2023-06-14 13:54] LABS: ABG Base Excess 1.8 mmol/L (-2.4-2.3); ABG HCO3 27.6 mmhg (22.0-26.0); ABG Oxygen Saturation 90 % (90-100); ABG PH 7.34 mmol/L (7.35-7.45); ABG TCO2 29.2 mmhg (23-27); Oxygen 2LPM %
[2023-06-14 13:55] LABS: ABG PCO2 52.3 mmhg (35.0-45.0); Allen's Test ACCEPTABLE; Source Right Radial
== END 2023-06-14 23:59 | disposition home or self-care (01) ==
LOC: RT 10:25
PROVIDERS: PCP Internal Medicine Adolescent Medicine; Visit Provider Internal Medicine Pulmonary Disease
DX: R06.09 Other forms of dyspnea (principal)
CPT/HCPCS: 82803; 94060; 94640; 94726; 94729

== ENCOUNTER 2023-08-07 12:12 | Outpatient (CLI) | payer MEDICARE, MEDICAID, SELFPAY ==
--- NOTE | 2023-08-07 12:17 | XR_ITS ---
FINAL REPORT CLINICAL HISTORY: dyspnea/prod cough COMPARISON: 04/19/2023 FINDINGS: Two views of the chest were obtained. Cardiomegaly and changes of chronic obstructive pulmonary disease are present. The mediastinum is normal. Mild atelectasis versus scarring is present in the lung bases. There is no pneumothorax. The bony thorax is intact. IMPRESSION: Cardiomegaly and changes of chronic obstructive pulmonary disease. Reviewed, Interpreted and Dictated by Delfino Ruth III, MD Transcribed by Paula Schmidt Authenticated and [facility]
== END 2023-08-07 23:59 | disposition home or self-care (01) ==
LOC: RAD 12:12
PROVIDERS: PCP Internal Medicine Adolescent Medicine; Visit Provider Nurse Practitioner Family
DX: I11.0 Hypertensive heart disease with heart failure (principal); I25.118 Atherosclerotic heart disease of native coronary artery with other forms of angina pectoris; I50.20 Unspecified systolic (congestive) heart failure; I27.20 Pulmonary hypertension, unspecified; I48.20 Chronic atrial fibrillation, unspecified
CPT/HCPCS: 71046

== ENCOUNTER 2023-08-13 12:16 | Inpatient (IN) | payer MEDICARE, MEDICAID, SELFPAY ==
[2023-08-13] VITALS (18 sets, daily range): BP systolic 115–160; BP diastolic 46–125; PULSE 45–58; RESP 16–25; TEMP 36.7–36.9; O2SAT 85–100; BMI 36.8; BMI 36.6
--- NOTE | 2023-08-13 12:21 | CT_ITS ---
FINAL REPORT CLINICAL HISTORY: fall, AMS COMPARISON: 04/19/2023 FINDINGS: Axial images of the head were obtained without contrast. Coronal reformatted images were also obtained. This study was performed with techniques to keep radiation doses as low as reasonably achievable (ALARA). Individualized dose reduction techniques using automated exposure control or adjustment of mA and/or kV according to the patient's size were employed. There is generalized age-appropriate atrophy. Periventricular low-attenuation areas are seen consistent with mild chronic ischemic changes. There is no evidence of intracranial hemorrhage or mass. There are multiple chronic lacunar infarcts. There is no evidence of acute infarct. There is no evidence of shift of the midline structures. There is a retention cyst or polyp in the left maxillary sinus. No skull abnormality is seen on the bone window images. IMPRESSION: Atrophy and mild periventricular chronic ischemic changes. No acute intracranial abnormality identified. Reviewed, Interpreted and Dictated by Delfino Ruth III, MD Transcribed by Mayra Rios Authenticated and [facility]
--- NOTE | 2023-08-13 12:33 | ECG_ITS ---
APPROVED REPORT Exam: Resting ECG HR:50 bpm ECG Measurements Heart Rate 50 AXES QRSd 98 QRS 197 QT 443 T 0 QTc 417 Conclusion A-fib slow ventricular response RVH T wave inversions anteroseptal leads without reciprocal change Electronically signed by : ALEJANDRINA SAM, 08/14/2023 16:02:28
--- NOTE | 2023-08-13 12:46 | XR_ITS ---
FINAL REPORT CLINICAL HISTORY: Shortness of breath, confusion COMPARISON: 08/07/2023 FINDINGS: A single portable view of the chest was obtained. Cardiomegaly and pulmonary vascular congestion are worse compared to the prior study. The mediastinum is within normal limits. There are worsening bilateral pulmonary opacities which are favored to represent edema or pneumonia. The bony thorax is intact. IMPRESSION: Worsening bilateral pulmonary opacities favor edema or pneumonia. Worsened cardiomegaly and pulmonary vascular congestion. Reviewed, Interpreted and Dictated by Delfino Ruth III, MD Transcribed by Mayra Rios Authenticated and . [facility]
--- NOTE | 2023-08-13 13:05 | ED_ITS ---
Discharge Plan Disposition Patient Disposition: Admitted Prescriptions Prescriptions: No Action bumetanide 2 mg tablet 2 mg PO BID Qty: 60 3RF levofloxacin 500 mg tablet 500 mg PO ergocalciferol (vitamin D2) 1,250 mcg (50,000 unit) capsule 1,250 mcg PO QOW Patient Comments: TAKE 1 CAPSULE BY MOUTH EVERY TWO WEEKS (TWICE A MONTH) amitriptyline 10 mg tablet 10 mg PO HS cetirizine 10 mg tablet 10 mg PO DAILY amiodarone 200 mg tablet 200 mg PO DAILY Qty: 30 4RF albuterol sulfate 90 mcg/actuation HFA aerosol inhaler 2 puff INHALATION Q4HP PRN (Reason: Shortness Of Breath Or Wheezing) multivitamin Tablet 1 tab PO DAILY omeprazole 40 mg Capsule,Delayed Release(Dr/Ec) 40 mg PO HS icosapent ethyl [Vascepa] 1 gram Capsule 1 g PO BID docusate sodium 100 mg Tablet 100 mg PO BID ferrous sulfate 324 mg (65 mg iron) Tablet,Delayed Release (Dr/Ec) 324 mg PO DAILY Eliquis 5 mg Tablet 5 mg PO BID acetaminophen [Tylenol Extra Strength] 500 mg Tablet 1,000 mg PO Q6HP PRN (Reason: Fever Or Pain) nitroglycerin 0.4 mg Tablet, Sublingual 0.4 mg SUBLINGUAL Q5MINP PRN (Reason: Chest Pain) Rx Instructions: do not exceed 3 doses per episode insulin lispro 100 unit/mL Insulin Pen 0 sliding scale dose SQ ACHS Rx Instructions: 101-150 3 UNITS 151-200 4 UNITS 201-250 6 UNITS 251-300 9 UNITS 301-350 12 UNITS 351-400 15 UNITS albuterol sulfate 2.5 mg /3 mL (0.083 %) Solution For Nebulization 2.5 mg inhalation Q4HP PRN (Reason: shortness of air or wheezing) acetaminophen 500 mg Tablet 500 mg PO AC gabapentin 300 mg Capsule 300 mg PO BID buspirone 10 mg tablet 10 mg PO TID hydrocodone-acetaminophen 5-325 mg tablet 1 tab PO Q12HP PRN (Reason: Breakthrough Pain, Severe) clopidogrel 75 mg Tablet 75 mg PO DAILY miconazole nitrate 2 % Cream 1 applic TOPICAL BID clobetasol 0.05 % Shampoo 1 applic TOPICAL DAILY levothyroxine 50 mcg Tablet 50 mcg PO DAILYDM ondansetron 4 mg Tablet,Disintegrating 4 mg PO Q6HP PRN (Reason: Nausea And Vomiting) insulin glargine [Lantus Solostar U-100 Insulin] 100 unit/mL (3 mL) Insulin Pen 10 unit SQ HS Jardiance 10 mg tablet 10 mg PO DAILY budesonide [Pulmicort] 0.5 mg/2 mL Suspension For Nebulization 0.5 mg inhalation BIDRT 30 Days Qty: 120 0RF Referrals Follow up/Referrals: Provider,Referral, MD [Primary Care Provider] - See instructions Clinical Impressions Clinical Impression: Pneumonia of left lower lobe due to infectious organism, CHF exacerbation, Acute on chronic respiratory failure with hypoxemia COPD (chronic obstructive pulmonary disease) Qualifiers: COPD type: unspecified COPD Qualified Code(s): J44.9 - Chronic obstructive pulmonary disease, unspecified Discharge ED Provider: Kyrie Lara General Adult HPI General Chief complaint: Fall Stated complaint: fall Time Seen by Provider: 08/13/23 12:20 Mode of Arrival: EMS Source of Information: Patient and EMS Limitations: No Limitations Description of Symptoms (Recalled from ER Triage Doc. by RN): EMS states the patient has had 2 falls today and increased weakness. Patient is alert and oriented. History of Present Illness HPI narrative: Please note that above description of symptoms, in this electronic medical record under categorization of recalled from ER triage doctor by RN are reflective of an initial nursing assessment, however, is not reflective of my full history and physical exam that was personally taken and clarified. Consequentially, this preceding description of symptoms, which may include the patient's categorized chief complaint in the EMR, do not reflect my personal clinical impression, and the ultimate description of history of present illness and patient stated complaints should be deferred to this section of the note. Unless stated otherwise or congruent with this section of the note, additional signs, symptoms, or incongruence should be interpreted as inaccurate with my clinical impression. Related Data Home Medications Medication Instructions Recorded Confirmed ergocalciferol (vitamin D2) 1,250 1,250 mcg PO QOW Supplement 08/12/20 08/07/23 mcg (50,000 unit) capsule acetaminophen 500 mg tablet 1,000 mg PO Q6HP PRN Fever Or Pain 12/18/22 08/07/23 (Tylenol Extra Strength) albuterol sulfate 90 mcg/actuation 2 puff inhalation Q4HP PRN 12/18/22 08/07/23 aerosol inhaler Shortness Of Breath Or Wheezing apixaban 5 mg tablet (Eliquis) 5 mg PO BID Blood Thinner/DVT 12/18/22 08/07/23 Prophylaxis docusate sodium 100 mg tablet 100 mg PO BID Constipation 12/18/22 08/07/23 ferrous sulfate 324 mg (65 mg 324 mg PO DAILY Supplement 12/18/22 08/07/23 iron) tablet,delayed release icosapent ethyl 1 gram capsule 1 g PO BID Cholesterol 12/18/22 08/07/23 (Vascepa) insulin lispro 100 unit/mL 0 sliding scale dose SQ ACHS 12/18/22 08/07/23 subcutaneous pen Diabetes multivitamin 1 tab PO DAILY Supplement 12/18/22 08/07/23 nitroglycerin 0.4 mg sublingual 0.4 mg sublingual Q5MINP PRN Chest 12/18/22 08/07/23 tablet Pain omeprazole 40 mg capsule,delayed 40 mg PO HS Acid Reflux 12/18/22 08/07/23 release acetaminophen 500 mg tablet 500 mg PO AC Pain 12/19/22 08/07/23 albuterol sulfate 2.5 mg/3 mL 2.5 mg inhalation Q4HP PRN 12/19/22 08/07/23 (0.083 %) solution for nebulization shortness of air or wheezing gabapentin 300 mg capsule 300 mg PO BID MODERATE PAIN (4-6) 12/19/22 08/07/23 hydrocodone 5 mg-acetaminophen 325 1 tab PO Q12HP PRN Breakthrough 01/12/23 08/07/23 mg tablet Pain, Severe clopidogrel 75 mg tablet 75 mg PO DAILY Blood Thinner 03/18/23 08/07/23 amitriptyline 10 mg tablet 10 mg PO HS Depression 04/10/23 08/07/23 clobetasol 0.05 % shampoo 1 applic topical DAILY Skin 04/19/23 08/07/23 Condition empagliflozin 10 mg tablet 10 mg PO DAILY Diabetes 04/19/23 08/07/23 (Jardiance) insulin glargine 100 unit/mL (3 10 unit SQ HS Diabetes 04/19/23 08/07/23 mL) subcutaneous pen (Lantus Solostar U-100 Insulin) levothyroxine 50 mcg tablet 50 mcg PO DAILYDM THYROID 04/19/23 08/07/23 miconazole nitrate 2 % topical 1 applic topical BID Skin Condition 04/19/23 08/07/23 cream ondansetron 4 mg disintegrating 4 mg PO Q6HP PRN Nausea And 04/19/23 08/07/23 tablet Vomiting buspirone 10 mg tablet 10 mg PO TID Anxiety 07/04/23 08/07/23 levofloxacin 500 mg tablet 500 mg PO 07/04/23 08/07/23 cetirizine 10 mg tablet 10 mg PO DAILY 08/07/23 08/07/23 Previous Rx's Medication Instructions Recorded budesonide 0.5 mg/2 mL suspension 0.5 mg (2 mL) inhalation BIDRT 30 04/20/23 for nebulization (Pulmicort) days #120 mL bumetanide 2 mg tablet 2 mg PO BID #60 tabs 04/30/23 amiodarone 200 mg tablet 200 mg PO DAILY #30 tabs 08/07/23 Allergies Allergy/AdvReac Type Severity Reaction Status Date / Time cephalexin Allergy Verified 08/07/23 11:46 Penicillins Allergy Verified 08/07/23 11:46 [facility] Disclaimer: The information contained in this section may have been updated after the patient was seen, as this information can be updated by other users. Medical History Nodule of left lung Heart attack Encounter for screening for malignant neoplasm of lung COPD mixed type History of smoking 30 or more pack years Dyspnea Bilateral hearing loss due to cerumen impaction Encounter for removal of nasal packing CAD in [place] artery Cardiomyopathy Non-STEMI (non-ST elevated myocardial infarction) Right ventricular dilation Coronary artery disease HFrEF (heart failure with reduced ejection fraction) Pneumonia Diabetes mellitus, type 2 Iron deficiency anemia Pulmonary hypertension Osteoporosis Major depressive disorder Heart failure Depression Lymphedema Insomnia Class 2 obesity due to excess calories with body mass index (BMI) of 39.0 to 39.9 in adult Fibromyalgia Congestive heart failure Atrial fibrillation Anxiety HTN (hypertension) HLD (hyperlipidemia) COPD (chronic obstructive pulmonary disease) BMI 30.0-30.9,adult Osteoarthritis Callus of foot Paresthesia of both lower extremities Onychodystrophy Onychomycosis Diabetic foot Surgical History History of coronary artery stent placement History of bladder surgery H/O: hysterectomy H/O hernia repair Family History Other Diabetes Hyperlipidemia Hypertension No significant family history Social History Smoking Status: Former smoker tobacco type: cigarettes packs per day: 2 alcohol intake: never substance use type: denies use current occupational status: retired and disabled Travel in the last 8 weeks: None housing: halfway lives independently: No halfway: Yes caffeine: Yes ROS Obtained: Yes All systems reviewed & no additional complaints except as documented Physical Exam General General appearance: obese and other (Chronically ill, but in no acute distress. Opens eyes to voice, GCS 14) Head Head exam: atraumatic and normocephalic Eye Eye exam: Present normal appearance, PERRL and EOMI ENT ENT exam: Present mucous membranes dry Neck Neck exam: Present normal inspection, full ROM and trachea midline Respiratory Respiratory exam: Present wheezes (Diffuse, bilateral. Decreased breath sounds left lower lung lobe); Absent respiratory distress, stridor, accessory muscle use or prolonged expiratory phase Cardiovascular Cardiovascular exam: Present regular rate, normal rhythm and other (Pulses equal symmetric in upper and lower extremities) Abdominal Exam Abdominal exam: Present soft; Absent distention, tenderness or pulsatile mass Extremities Exam Extremities exam: Present edema (Bilateral nonpitting edema with chronic overlying skin changes) Neurological Exam Neurological exam: Present oriented X3, CN II-XII intact and other (GCS 14 for open voice); Absent motor sensory deficit Skin Skin exam: Present warm and dry; Absent diaphoresis or erythema Medical Decision Making Medical Records Medical records reviewed: Yes I reviewed the patient's medical records. Tj Inquiry Pt receiving controlled substance: No Tj was queried for this patient: No Vital Signs: 08/13/23 12:16 08/13/23 12:19 Temperature 98.4 F Temperature Source Oral Pulse Rate 53 L Pulse Rate [Radial] 51 L Respiratory Rate 22 Blood Pressure 141/69 H Blood Pressure [Right Arm] 141/69 H Blood Pressure Mean [Right Arm] 93 Blood Pressure Source [Right Arm] Automatic Cuff Blood Pressure Position [Right Arm] Sitting 02 Sat by Pulse Oximetry 90 L 90 L Oxygen Delivery Method Nasal Cannula Nasal Cannula Oxygen Flow Rate (LPM) 3 Lab Data Lab Results 08/13/23 12:46: VBG pH 7.38, VBG pCO2 57.4 H, VBG pO2 66.2 H, VBG HCO3 33.2 H, V BG Total CO2 35.0 H, VBG O2 Saturation 93.0 H, VBG Base Excess 8.1 H, VBG Lactic Acid 1.6 08/13/23 13:42: WBC 10.6, RBC 5.99 H, Hgb 14.4, Hct 47.9 H, MCV 80.0 L, MCH 24.0 L, MCHC 30.0 L, RDW 21.8 H, Plt Count 317, MPV 8.4, Neut % (Auto) 78.7, Lymph % (Auto) 13.3, [place] % (Auto) 6.3, Eos % (Auto) 1.0, Baso % (Auto) 0.7, Neut # (Auto) 8.3 H, Lymph # (Auto) 1.4, [place] # (Auto) 0.7, Eos # (Auto) 0.1, Baso # (Auto) 0.1, Sodium 134 L, Potassium 3.9, Chloride 93 L, Carbon Dioxide 40 H, A [place] 4.9 L, BUN 30 H, Creatinine 1.20 H, Estimated Creat Clear 64, Estimated GFR 44 L, Est GFR ( Amer) 53 L, Glucose 117 H, Calcium 9.2, Total Bilirubin 0.5, AST 31, ALT 25, Alkaline Phosphatase 77, Troponin I 0.02, N T-Pro-B Natriuret Pep 2390 H, Total Protein 7.5, Albumin 4.0, Globulin 3.5 H, Albumin/Globulin Ratio 1.1 08/13/23 13:42 08/13/23 13:42 Orders (Tests/Meds): ED MEDICATIONS Generic Name Dose Route Start Last Admin Trade Name Freq PRN Reason Stop Dose Admin Ceftriaxone Sodium 2 gm/ 100 mls @ 200 mls/hr 08/13/23 14:18 08/13/23 14:31 Sodium Chloride IV 08/13/23 14:47 200 mls/hr ONCE ONE Administration Discontinued Medications Generic Name Dose Route Start Last Admin Trade Name Freq PRN Reason Stop Dose Admin Albuterol/Ipratropium 9 ml 08/13/23 13:05 08/13/23 13:36 Ipratropium/Albuterol 3 Ml Neb IH 07/08/24 13:06 9 ml ONCE ONE Administration Furosemide 40 mg 08/13/23 14:18 08/13/23 14:33 Furosemide 40mg/4ml Vial IV 08/13/23 14:19 40 mg ONCE ONE Administration Methylprednisolone Sodium Succinate 125 mg 08/13/23 13:05 08/13/23 13:36 Methylprednisolone Sod Succ 125mg Vial IV 08/13/23 13:06 125 mg ONCE ONE Administration ORDERS Category Date Time Status CT head/brain wo con Stat Cat Scan 08/13/23 12:21 Completed CXR --portable [XR chest portable] Stat Exams 08/13/23 12:46 Completed Complete Blood Count Auto Diff Stat Lab 08/13/23 13:42 Completed Comprehensive Metabolic Panel Stat Lab 08/13/23 13:42 Completed NT Pro Brain Natriuretic Pep. Stat Lab 08/13/23 13:42 Completed Troponin I Q3H Lab 08/13/23 15:30 Ordered Troponin I Q3H Lab 08/13/23 18:30 Ordered Troponin I Stat Lab 08/13/23 13:42 Completed Urinalysis and Microscopic Stat Lab 08/13/23 12:22 Ordered Blood Culture Stat Micro 08/13/23 13:42 Received VBG [Venous Blood Gas] Stat RT 08/13/23 12:46 Completed HEART Score History (anamnesis): Slightly suspicious ECG: Non-specific disturbance Age: >65 years Risk factors: 3 or more risk factors Troponin: </= normal limit HEART Score: 5 Medical Decision Narrative: 72-year-old female with hypertension, hyperlipidemia, NARCISO, CHF, CAD, COPD on 3.5 L nasal cannula, type 2 diabetes, A-fib on Eliquis, presenting with altered mental status. Patient at [facility]. States that she has had a cough close been getting worse over the last 3 to 4 days productive of green sputum. Has not needed more oxygen than she usually does. No chest pain, nausea, vomiting, diarrhea, urinary symptoms. Nursing facility contacted EMS this morning because patient was tired and more difficult to arouse. They also state that she has had a couple falls over the last 2 or 3 days due to weakness. They, as well as patient, deny any head trauma during any of these falls. Patient denies any extremity problems, or any other complaints. History was obtained via conversation with patient, EMS, outside facility chart review. On arrival, patient hemodynamically stable, alert, oriented x4, appropriate, GCS 14, moving all extremities spontaneously, pupils equal and reactive to light. Full physical exam performed and significant for chronically ill-appearing, no acute distress. On home 3 L nasal cannula saturating 90 to 94%. Patient cardiac exam significant for lower extremity nonpitting edema with overlying chronic skin changes. Pulses are equal and symmetric. Cardiac exam normal limits self. Lungs with diffuse, bilateral wheezing with decreased breath sounds in left lower lung [place]. Differential includes COPD exacerbation, pneumonia, sepsis, ACS, [place], CHF exacerbation, pneumothorax, among others. Independent interpretation of EKG shows A-fib with controlled rate 50 bpm. QRS 98, QTc 417. ST depression V2 through V5 without reciprocal change. Associated T wave inversions. Patient was given 40 mg IV Lasix, 2 g ceftriaxone for symptomatic management and correction of underlying abnormalities. Workup independently interpreted and significant for nonactionable CBC. Patient's chemistr with mild TESSIE creatinine 1.2 up from normal baseline. BNP elevated at 2400, troponin within normal limits. CT head without acute intracranial abnormality. Chest x-ray with pulmonary edema, effusions, cephalization of pulmonary vessels concerning for CHF. Given the amount of edema, difficult to appreciate obvious airspace disease, but given patient's concern for worsening cough, worsening productive cough and change in sputum color in character, given 2 g ceftriaxone. See radiology read for full review of final results. Heart score 5. Extended conversation was had with patient regarding need for positive pressure ventilation given increase in oxygen requirement throughout her ED stay from 3.5 L to 5 L to 6 L up to nonrebreather. Patient adamantly denying CPAP, extended conversation was had about BiPAP, patient willing to try this. It was ordered. Hospital medicine contacted out of concern for respiratory failure in the setting of multiple underlying comorbidities including CHF and COPD exacerbation. Agreeable to admission. Records Management Manager disclaimer Much of this encounter note is an electronic distribution operation supervisor spoken language to printed text. Electronic distribution operation supervisor of the spoken language may permit errors. Although I have reviewed the note, some errors may still exist. Critical Care Critical Care Time Critical Care Time: Yes (Cardiopulmonary) Attestation: On 08/13/23, the high probability of a clinically significant, sudden or life threatening deterioration of the following system(s) required my full and direct attention, intervention and personal management. The time I documented below is in addition to time spent performing reported procedures but includes the following listed in this critical care notation. Total Time Total Critical Care Time: 45
--- NOTE | 2023-08-13 13:06 | PC.NURSE ---
PT TO CT
[2023-08-13] MEDS: IPRATROPIUM/ALBUTEROL 3 ML NEB 9 ML IH (13:36)
[2023-08-13] MEDS: METHYLPREDNISOLONE SOD SUCC 125MG VIAL 125 MG IV (13:36)
[2023-08-13 13:52] LABS: Lactate Venous 1.6 mmol/L (0.4-2.0); VBG Base Excess 8.1 mmol/L (-2.4-2.3); VBG HCO3 33.2 mmol/L (23-30); VBG PH 7.38 mmol/L (7.31-7.41); VBG PO2 66.2 mmol/L (28-40)
[2023-08-13 13:57] LABS: VBG PCO2 57.4 mmol/L (35-51)
[2023-08-13 13:58] LABS: Basophils # 0.1 K/mm3 (0-0.2); Basophils % 0.7 % (0.1-2.0); Eosinophils # 0.1 K/mm3 (0.0-0.4); Hematocrit 47.9 % (37.0-47.0); Hemoglobin 14.4 g/dL (12.2-16.2); Lymphocytes # 1.4 K/mm3 (0.7-4.5); Lymphocytes % 13.3 % (10-50); Mean Platelet Volume 8.4 fl (7.4-10.4); Monocytes # 0.7 K/mm3 (0.1-1.0); Monocytes % 6.3 % (1.7-9.3); Neutrophils # 8.3 K/mm3 (1.8-7.8); Neutrophils % 78.7 % (37.0-80.0); Platelet Count 317 K/mm3 (142-424); Red Blood Count 5.99 M/mm3 (4.20-5.40); Red Cell Distribution Width 21.8 % (11.5-17.5); White Blood Count 10.6 K/mm3 (4.8-10.8)
[2023-08-13 14:07] LABS: Alanine Aminotransferase 25 U/L (12-78); Albumin/Globulin Ratio 1.1 (1.1-1.8); Alkaline Phosphatase 77 U/L (38-126); Anion Gap 4.9 mEq/L (5-15); Aspartate Amino Transferase 31 U/L (14-36); Bilirubin,Total 0.5 mg/dl (0.2-1.3); Blood Urea Nitrogen 30 mg/dl (7-17); Calcium 9.2 mg/dl (8.4-10.2); Carbon Dioxide 40 mmol/L (22.0-30.0); Chloride 93 mmol/L (98-107); Creatinine Clearance Estimated 64 mL/min (50-200); Estimated Glomerular Filt Rate 44 ml/min (>60); GFR (African American) 53 ML/MIN (>60); Globulin 3.5 g/dL (1.3-3.2); Glucose 117 mg/dl (74-100); Potassium 3.9 mmoL/L (3.5-5.1); Sodium 134 mmol/L (136-145); Total Protein,Serum 7.5 g/dl (6.3-8.2)
[2023-08-13 14:15] LABS: NT Pro Brain Natriuretic Pep. 2390 pg/mL (0-125)
--- NOTE | 2023-08-13 14:15 | PC.NURSE ---
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
[2023-08-13 14:18] LABS: Troponin I 0.02 ng/ml (0.00-0.034)
--- NOTE | 2023-08-13 14:22 | PC.NURSE ---
DR SAM SPEAKING WITH HOSPITALIST FOR ADMISSION
--- NOTE | 2023-08-13 14:27 | PC.NURSE ---
hs aware of admission
[2023-08-13] MEDS: CEFTRIAXONE SODIUM 2 GM in 0.9 % SODIUM CHLORIDE 100 ML IV (14:31)
[2023-08-13] MEDS: FUROSEMIDE 40MG/4ML VIAL 40 MG IV (14:33)
--- NOTE | 2023-08-13 15:24 | PC.NURSE ---
purewick placed on pt
[2023-08-13 15:26] LABS: Microscopic, Urine URINE MICROSCOPIC (MICROSCOPIC)
[2023-08-13 15:28] LABS: Appearance,Urine CLEAR (Clear); Bilirubin,Urine Negative (Negative); Blood, Urine Negative (Negative); Color,Urine YELLOW (Yellow); Glucose,Urine (UA) 3+ (Negative); Ketones,Urine Negative (Negative); Leukocyte Esterase,Urine Negative (Negative); Nitrate,Urine Negative (Negative); Protein,Urine Negative (Negative); Urobilinogen,Urine 0.2 EU/dl (0.2)
--- NOTE | 2023-08-13 15:29 | PC.NURSE ---
I attempted to call report, the nurse states she will call me back.
--- NOTE | 2023-08-13 15:51 | PC.NURSE ---
SPOKE WITH [employer] MANAGER NOTIFIED THAT NO ORDERS ARE ENTERED BY HOSPITALIST. STATES DR ACOSTA WILL ENTER ORDERS WHEN HE HAS TIME, HE'S HAD 3 ADMISSIONS AND IS BUSY.
--- NOTE | 2023-08-13 16:06 | EXP.HP ---
History of Present Illness *Admission Date: 08/13/23 *Reason for visit:: Dyspnea *History of present illness: This is a 72-year-old female that presents to [facility] emergency department from her long-term care facility ([place]) with concerns of shortness of air. Her past medical history significant for atrial fibrillation, COPD, NARCISO, HFpEF. She reports 2 to 3 days of increasing dyspnea not resolving with her current oxygen supply 2?3 L NC. She reports crescendo for dyspnea now occurring at rest. She reports it is hard to lay back secondary to her dyspnea. She has identified some increased lower extremity edema. She denies associated retrosternal chest pain, palpitations, confusion, falls or syncopal episodes. In the ED her proBNP is elevated and her chest imaging is concerning for pulmonary edema. She initially declined NIPPV therapy in the ED but ultimately consented. She reports that it has helped. [facility] Disclaimer: The information contained in this section may have been updated after the patient was seen, as this information can be updated by other users. Medical History Nodule of left lung Heart attack Encounter for screening for malignant neoplasm of lung COPD mixed type History of smoking 30 or more pack years Dyspnea Bilateral hearing loss due to cerumen impaction Encounter for removal of nasal packing CAD in [place] artery Cardiomyopathy Non-STEMI (non-ST elevated myocardial infarction) Right ventricular dilation Coronary artery disease HFrEF (heart failure with reduced ejection fraction) Pneumonia Diabetes mellitus, type 2 Iron deficiency anemia Pulmonary hypertension Osteoporosis Major depressive disorder Heart failure Depression Lymphedema Insomnia Class 2 obesity due to excess calories with body mass index (BMI) of 39.0 to 39.9 in adult Fibromyalgia Congestive heart failure Atrial fibrillation Anxiety HTN (hypertension) HLD (hyperlipidemia) COPD (chronic obstructive pulmonary disease) BMI 30.0-30.9,adult Osteoarthritis Callus of foot Paresthesia of both lower extremities Onychodystrophy Onychomycosis Diabetic foot Surgical History History of coronary artery stent placement History of bladder surgery H/O: hysterectomy H/O hernia repair Family History Other Diabetes Hyperlipidemia Hypertension No significant family history Social History Smoking Status: Former smoker tobacco type: cigarettes packs per day: 2 alcohol intake: never substance use type: denies use current occupational status: retired and disabled Travel in the last 8 weeks: None housing: group home lives independently: No group home: Yes caffeine: Yes Review of Systems Review of Systems Review of systems:: pertinent systems reviewed and negative unless documented below *Cardiovascular Cardiovascular: Denies chest pain and Reports dyspnea *Respiratory Respiratory: Reports dyspnea Meds Home Medications and Allergies Home Medications Medication Instructions Recorded Confirmed Type ergocalciferol (vitamin D2) 1,250 1,250 mcg PO QOW Supplement 08/12/20 08/07/23 History mcg (50,000 unit) capsule acetaminophen 500 mg tablet 1,000 mg PO Q6HP PRN Fever Or Pain 12/18/22 08/07/23 History (Tylenol Extra Strength) albuterol sulfate 90 mcg/actuation 2 puff inhalation Q4HP PRN 12/18/22 08/07/23 History aerosol inhaler Shortness Of Breath Or Wheezing apixaban 5 mg tablet (Eliquis) 5 mg PO BID Blood Thinner/DVT 12/18/22 08/07/23 History Prophylaxis docusate sodium 100 mg tablet 100 mg PO BID Constipation 12/18/22 08/07/23 History ferrous sulfate 324 mg (65 mg 324 mg PO DAILY Supplement 12/18/22 08/07/23 History iron) tablet,delayed release icosapent ethyl 1 gram capsule 1 g PO BID Cholesterol 12/18/22 08/07/23 History (Vascepa) insulin lispro 100 unit/mL 0 sliding scale dose SQ ACHS 12/18/22 08/07/23 History subcutaneous pen Diabetes multivitamin 1 tab PO DAILY Supplement 12/18/22 08/07/23 History nitroglycerin 0.4 mg sublingual 0.4 mg sublingual Q5MINP PRN Chest 12/18/22 08/07/23 History tablet Pain omeprazole 40 mg capsule,delayed 40 mg PO HS Acid Reflux 12/18/22 08/07/23 History release acetaminophen 500 mg tablet 500 mg PO AC Pain 12/19/22 08/07/23 History albuterol sulfate 2.5 mg/3 mL 2.5 mg inhalation Q4HP PRN 12/19/22 08/07/23 History (0.083 %) solution for nebulization shortness of air or wheezing gabapentin 300 mg capsule 300 mg PO BID MODERATE PAIN (4-6) 12/19/22 08/07/23 History hydrocodone 5 mg-acetaminophen 325 1 tab PO Q12HP PRN Breakthrough 01/12/23 08/07/23 History mg tablet Pain, Severe clopidogrel 75 mg tablet 75 mg PO DAILY Blood Thinner 03/18/23 08/07/23 History amitriptyline 10 mg tablet 10 mg PO HS Depression 04/10/23 08/07/23 History clobetasol 0.05 % shampoo 1 applic topical DAILY Skin 04/19/23 08/07/23 History Condition empagliflozin 10 mg tablet 10 mg PO DAILY Diabetes 04/19/23 08/07/23 History (Jardiance) insulin glargine 100 unit/mL (3 10 unit SQ HS Diabetes 04/19/23 08/07/23 History mL) subcutaneous pen (Lantus Solostar U-100 Insulin) levothyroxine 50 mcg tablet 50 mcg PO DAILYDM THYROID 04/19/23 08/07/23 History miconazole nitrate 2 % topical 1 applic topical BID Skin Condition 04/19/23 08/07/23 History cream ondansetron 4 mg disintegrating 4 mg PO Q6HP PRN Nausea And 04/19/23 08/07/23 History tablet Vomiting budesonide 0.5 mg/2 mL suspension 0.5 mg (2 mL) inhalation BIDRT 30 04/20/23 08/07/23 Rx for nebulization (Pulmicort) days #120 mL bumetanide 2 mg tablet 2 mg PO BID #60 tabs 04/30/23 08/07/23 Rx buspirone 10 mg tablet 10 mg PO TID Anxiety 07/04/23 08/07/23 History levofloxacin 500 mg tablet 500 mg PO 07/04/23 08/07/23 History amiodarone 200 mg tablet 200 mg PO DAILY #30 tabs 08/07/23 08/07/23 Rx cetirizine 10 mg tablet 10 mg PO DAILY 08/07/23 08/07/23 History New Prescriptions to Start Prescriptions: Allergies Allergy/AdvReac Type Severity Reaction Status Date / Time cephalexin Allergy Verified 08/07/23 11:46 Penicillins Allergy Verified 08/07/23 11:46 Exam Data for Last 24 hours Vital signs and Labs for Last 24 Hours: Temp Pulse Resp BP Pulse Ox O2 Del Method O2 Flow Rate 98.4 F 49 L 22 154/125 H 95 BiPAP 5 08/13/23 12:16 08/13/23 15:30 08/13/23 12:16 08/13/23 15:30 08/13/23 15:30 08/13/23 15:30 08/13/23 15:15 FiO2 30 08/13/23 15:28 Laboratory Results - last 24 hr 08/13/23 12:46: VBG pH 7.38, VBG pCO2 57.4 H, VBG pO2 66.2 H, VBG HCO3 33.2 H, VBG Total CO2 35.0 H, VBG O2 Saturation 93.0 H, VBG Base Excess 8.1 H, VBG Lactic Acid 1.6 08/13/23 13:42: WBC 10.6, RBC 5.99 H, Hgb 14.4, Hct 47.9 H, MCV 80.0 L, MCH 24.0 L, MCHC 30.0 L, RDW 21.8 H, Plt Count 317, MPV 8.4, Neut % (Auto) 78.7, Lymph % (Auto) 13.3, [place] % (Auto) 6.3, Eos % (Auto) 1.0, Baso % (Auto) 0.7, Neut # (Auto) 8.3 H, Lymph # (Auto) 1.4, [place] # (Auto) 0.7, Eos # (Auto) 0.1, Baso # (Auto) 0.1, Sodium 134 L, Potassium 3.9, Chloride 93 L, Carbon Dioxide 40 H, Anion Gap 4.9 L, BUN 30 H, Creatinine 1.20 H, Estimated Creat Clear 64, Estimated GFR 44 L, Est GFR ( Amer) 53 L, Glucose 117 H, Calcium 9.2, Total Bilirubin 0.5, AST 31, ALT 25, Alkaline Phosphatase 77, Troponin I 0.02, NT-Pro-B Natriuret Pep 2390 H, Total Protein 7.5, Albumin 4.0, Globulin 3.5 H, Albumin/Globulin Ratio 1.1 08/13/23 15:18: Urine Color Yellow, Urine Appearance Clear, Urine pH 6.0, Ur Specific [place] 1.010, Urine Protein Negative, Urine Glucose (UA) 3+, Urine Ketones Negative, Urine Blood Negative, Urine Nitrate Negative, Urine Bilirubin Negative, Urine Urobilinogen 0.2, Ur Leukocyte Esterase Negative, Ur Squamous Epith Cells 3-5 I & O for Last 24 hours: Intake & Output 08/10/23 08/11/23 08/12/23 08/13/23 23:59 23:59 23:59 23:59 Weight 97.522 kg Constitutional Constitutional: no acute distress, morbidly obese, chronically ill appearing and cooperative *Routine HEENT Exam Head: Present normocephalic Eye: Present EOMI ENT: Present mucous membranes moist *Routine Neck Exam Neck: Present supple and trachea midline; Absent JVD or lymphadenopathy *Routine Respiratory Exam Respiratory: Present rhonchi, crackles, diminished air movement, normal respiratory effort and symmetric chest movement *Routine Cardiovascular Exam Cardiovascular: Present irregularly irregular *Routine Abdominal Exam Abdominal: Present soft and normoactive bowel sounds; Absent tenderness *Routine Rectal Exam Rectal:: deferred *Routine Genitalia Exam Genitalia:: deferred *Routine Extremities Exam Extremities: Present edema and full ROM; Absent calf tenderness *Routine Skin Exam Skin: Present warm and wounds; Absent rash *Routine Neurological Exam Neurological: Present alert, oriented X3, moving all extremities, vision grossly intact, hearing grossly intact and normal speech; Absent sensory deficit or motor deficit Routine Psychiatric Exam Psychiatric: Present normal affect, normal thought process, cooperative and good insight Assessment and Plan *Assessment and plan (1) Acute on chronic heart failure with preserved ejection fraction (HFpEF): Status: Acute Category: Medical Code(s): I50.33 - Acute on chronic diastolic (congestive) heart failure (2) Atrial fibrillation: Status: Acute Qualifiers: Atrial fibrillation type: unspecified chronic Qualified Code(s): I48.20 - Chronic atrial fibrillation, unspecified Category: Medical Code(s): I48.91 - Unspecified atrial fibrillation (3) Coronary artery disease: Status: Acute Qualifiers: Coronary Disease-Associated Artery/Lesion type: [place] artery [place] vs. transplanted heart: [place] heart Associated angina: with other forms of angina Qualified Code(s): I25.118 - Atherosclerotic heart disease of [place] coronary artery with other forms of angina pectoris Category: Medical Code(s): I25.10 - Atherosclerotic heart disease of [place] coronary artery without angina pectoris (4) Acute on chronic respiratory failure with hypoxia and hypercapnia: Status: Acute Category: Medical Code(s): J96.21 - Acute and chronic respiratory failure with hypoxia; J96.22 - Acute and chronic respiratory failure with hypercapnia (5) NARCISO (obstructive sleep apnea): Problem Comment: Active patient at [facility] Status: Chronic Category: Medical Code(s): G47.33 - Obstructive sleep apnea (adult) (pediatric) (6) COPD mixed type: Status: Chronic Category: Medical Code(s): J44.9 - Chronic obstructive pulmonary disease, unspecified (7) Diabetes mellitus, type 2: Status: Acute Qualifiers: Diabetes mellitus oil heaterman insulin use: with oil heaterman use Diabetes mellitus complication status: with other specified complication Qualified Code(s): E11.69 - Type 2 diabetes mellitus with other specified complication; Z79.4 - senior living (current) use of insulin Category: Medical Code(s): E11.9 - Type 2 diabetes mellitus without complications Plan The patient is a 72-year-old female with with dyspnea and identified HFpEF via JANNETH on April 2023 with EF 50% (stage C/NYHA IV). She follows with pulmonology and has identified COPD mixed type with NARCISO and BMI 37. Problems addressed as follows: Acute on chronic HFpEF (stage C/NYHA IV) Telemetry monitoring ED chest x-ray with pulmonary edema ED proBNP 2390 JANNETH (April 2023): EF 50%, LVH, RV hypokinetic, RVSP 35 mmHg Accurate I's and O's Sodium and fluid restriction Routine weights IV loop diuretic therapy Drug therapy requiring intensive monitoring for toxicity Routine electrolytes, magnesium and creatinine evaluation Intermittent BNP evaluations SGLT2 inhibitor therapy Avoiding ARNI therapy with presenting TESSIE Avoiding beta-aliya therapy with identified bradycardia Avoiding aldosterone antagonist with TESSIE Acute kidney injury Baseline creatinine 0.9 Trending electrolytes and creatinine Avoiding NSAIDs Loop diuretic therapy noted Atrial fibrillation Amiodarone therapy Factor Xa inhibitor therapy Coronary artery disease Avoiding triple anticoagulation therapy P2 Y12 inhibitor therapy Statin therapy Avoiding beta-aliya therapy with bradycardia Acute on chronic hypoxic and hypercapnic respiratory failure NARCISO/OHS/COPD overlap/BMI 37 Pulse oximetry monitoring Oxygen therapy to maintain appropriate oxygen saturations Home oxygen requirement 2-3L via NC Currently requiring 5 L NIPPV therapy Shefali/Oseas inhalation therapy ICS therapy Diabetes with peripheral neuropathy Routine blood sugar monitoring Hemoglobin A1c pending Basal insulin therapy Sliding scale insulin therapy Gabapentin therapy Carbohydrate controlled diet Hypothyroidism Levothyroxine replacement therapy The length of stay for this patient will be 2 midnights or greater due to above diagnoses.
--- NOTE | 2023-08-13 16:06 | PC.NURSE ---
pts daughter, Concepción Sena, would like a call from the nurse once she gets to her room for admission. [phone]
[2023-08-13 16:07] LABS: Troponin I 0.02 ng/ml (0.00-0.034)
--- NOTE | 2023-08-13 16:07 | PC.NURSE ---
rounded on pt no needs at this time
--- NOTE | 2023-08-13 16:27 | PC.NURSE ---
arrived by stretcher from ED
[2023-08-13] MEDS: EMPAGLIFLOZIN 10MG TABLET 10 MG PO (17:03)
[2023-08-13] MEDS: humaLOG 100 UNITS/ML 10ML VIAL (SSI) SQ (17:03)
[2023-08-13] MEDS: AMIODARONE 200MG TABLET 200 MG PO (17:03)
[2023-08-13] MEDS: BUMETANIDE 1MG/4ML VIAL 1 MG IV (17:03)
[2023-08-13] MEDS: CLOPIDOGREL 75MG TAB 75 MG PO (17:03)
[2023-08-13] MEDS: HEPARIN SODIUM 5,000 UNIT/ML VIAL 5000 UNIT SQ ×2 (17:03→23:08)
[2023-08-13] MEDS: PANTOPRAZOLE 40MG TABLET 40 MG PO (17:03)
[2023-08-13 17:15] LABS: POC Glucose,Bedside 150 (70-110)
--- OUTSIDE RECORDS SUMMARY | 2023-08-13 17:21 | XMS_ITS | Summary of Care ---
Author Name Unknown Organization [facility] Address [address] [place] [address]- Encounter 10/28/15 - 10/28/15 [facility] [address] [place] [address] Discharge Disposition: Discharged to Home or Self Care Attending Physician: Kailyn George MD Referring Physician: Kailyn George MD Vital Signs Most recent to oldest [Reference Range]: 1 Peripheral Pulse Rate [60-100 bpm] 56 bp m *LOW* (10/28/15 10:06 AM) Blood Pressure [90-140/60-90 mmHg] 118/7 5mmHg (10/28/15 10:06 AM) Problem List Condition Effective Dates Status Health Status Inform ant Asthma(Confirmed) Active Balance impairment(Confirmed) Active cardiac dysrhythmias(Confirmed) Active Cognitive impairment(Confirmed) Active DM - Diabetes mellitus type II(Confirmed) Active Endurance capacity(Confirmed) Active H/O small calicification Hem orrhage Frontal lobe(Confirmed) Active HTN - Hypertension(Confirmed) Active Impaired exercise tolerance(Confirmed) Active Intra-abdominal hernia NOS(Confirmed) Active Memory impairment(Confirmed) Active Muscle weakness(Confirmed) Active Osteoarthrosis NOS(Confirmed) Active Osteoporosis(Confirmed) Active Personal care impairment(Confirmed) Active Personal care impairment(Confirmed) Active personal history of fall(Confirmed) Active Physical mobility impairment(Confirmed) Active Pneumonia(Confirmed) Active Respiratory failure(Confirmed) Active Allergies, Adverse Reactions, Alerts Substance Reaction Severity Status Keflex Active No Known Food Allergies Acti ve penicillins Active Medications amitriptyline 25 mg oral tablet 25 mg, = 1 tab, Tab, Oral, QHS, 30 tab, Refills 0, Print Requisition, 0 Start Date: 08/23/15 Status: Ordered aspirin 81 mg oral tablet, chewable 81 mg, = 1 tab, Tab-Chew, Oral, Daily, 30 tab, Refills 0, Print Requisition, 0 Start Date: 08/23/15 Status: Ordered atorvastatin 40 mg oral tablet 80 mg, = 2 tab, Tab, Oral, QHS, 60 tab, Refills 0, Print Requisition, 0 Start Date: 08/23/15 Status: Ordered Breo Ellipta 200 mcg-25 mcg/inh inhalation powder 1 puff, Powder, INH, Daily RT, 1 inhaler(s), Refills 0, Print Requisition, 0 Start Date: 08/23/15 Status: Ordered CeleXA 40 mg oral tablet 40 mg, = 1 tab, Tab, Oral, Daily, 30 tab, Refills 0, Print Requisition, 0 Start Date: 08/24/15 Status: Ordered dicyclomine 10 mg oral capsule 10 mg, = 1 cap, Refills 0 Start Date: 10/28/15 Status: Ordered ferrous sulfate 324 mg oral tablet 324 mg, = 1 tab, Tab, Oral, BID, 60 tab, Refills 0, Print Requisition, 0 Start Date: 08/23/15 Status: Ordered folic acid 1 mg oral tablet 1 mg, = 1 tab, Tab, Oral, Daily, 30 tab, Refills 0, Print Requisition, 0 Start Date: 08/23/15 Status: Ordered furosemide 40 mg oral tablet 60 mg, = 1.5 tab, Oral, Daily, Refills 0 Start Date: 10/28/15 Status: Ordered gabapentin 800 mg oral tablet 800 mg, = 1 tab, Tab, Oral, TID, 270 tab, Refills 0 Start Date: 10/28/15 Status: Ordered GlycoLax oral powder for reconstitution 17 gm, Powder, Oral, Daily PRN, 119 gm, Refills 0, Constipation Start Date: 10/28/15 Status: Ordered Lantus Solostar Pen Subcutaneous, Refills 0, 25 units qhs, increase by 3 units every 3 days until morning fasting glucose between 80-120 Special Instructions: 25 units qhs, increase by 3 units every 3 days until morning fasting glucose between 80-120 Start Date: 10/28/15 Status: Ordered Lasix 20 mg oral tablet 60 mg, = 3 tab, Tab, Oral, BID, 180 tab, Refills 0, give at lunch, Print Requisition, 0 Special Instructions: give at lunch Start Date: 08/23/15 Status: Ordered lisinopril 10 mg oral tablet 10 mg, = 1 tab, Tab, Oral, Daily, 30 tab, Refills 0 Start Date: 10/28/15 Status: Ordered magnesium oxide 400 mg (241.3 mg elemental magnesium) oral tablet 400 mg, = 1 tab, Tab, Oral, Daily, 30 tab, Refills 0, Print Requisition, 0 Start Date: 08/23/15 Status: Ordered metFORMIN 1000 mg oral tablet 1,000 mg, = 1 tab, Tab, Oral, BID, 60 tab, Refills 0 Start Date: 10/28/15 Status: Ordered omeprazole 40 mg oral delayed release capsule 40 mg, = 1 cap, Cap-DR, Oral, Before breakfast, Refills 0 Start Date: 10/28/15 Status: Ordered oxybutynin 5 mg oral tablet 5 mg, 1 tab, Tab, Oral, QHS, 30 tab, Refills 0, Print Requisition, 0 Start Date: 08/23/15 Status: Ordered oxyCODONE 5 mg oral tablet 10 mg, = 2 tab, Tab, Oral, q4hr PRN, 60 tab, Refills 0, Pain, Print Requisition, 0 Start Date: 08/23/15 Status: Ordered Senna Plus 50 mg-8.6 mg oral tablet 2 tab, Tab, Oral, BID, 60 tab, Refills 0, Print Requisition, 0 Start Date: 08/23/15 Status: Ordered Spiriva 18 mcg inhalation capsule 18 mcg, 1 cap, Cap, INH, Daily RT, 90 cap, Refills 0 Start Date: 10/28/15 Status: Ordered Symbicort 160 mcg-4.5 mcg/inh inhalation aerosol 2 puff, Aerosol, INH, BID RT, 6 gm, Refills 0 Start Date: 10/28/15 Status: Ordered triamcinolone 0.1% topical cream 1 daniella, Cream, TOP TID, PRN, 15 gm, Refills 0, apply to rash, Itching, Start date 10/28/15 14:57:00 EDT Special Instructions: apply to rash Start Date: 10/28/15 Status: Ordered Tylenol 325 mg oral capsule = 2 tab, BID PRN, Refills 0, Pain Start Date: 10/28/15 Status: Ordered Ventolin Diskus q4hr PRN, Refills 0, 2 puffs, wheezing Start Date: 10/28/15 Status: Ordered Vitamin D2 50,000 intl units (1.25 mg) oral capsule 50,000 IntlUnit, = 1 cap, Oral, qMonth, Refills 0 Start Date: 10/28/15 Status: Ordered Zanaflex 4 mg oral tablet 4 mg, = 1 tab, Tab, Oral, q8hr PRN, 90 tab, Refills 0, spasm, Print Requisition, 0 Start Date: 08/23/15 Status: Ordered Results No data available for this section Immunizations No data available for this section Procedures No data available for this section Social History No data available for this section Assessment and Plan No data available for this section
--- OUTSIDE RECORDS SUMMARY | 2023-08-13 17:21 | XMS_ITS | Summary of Care ---
Author Name Unknown Organization [facility] Address [address] [place] [address]- Encounter 12/08/16 - 12/27/16 [facility] [address] [place] [address] Attending Physician: Kailyn George MD Vital Signs Most recent to oldest [Reference Range]: 1 2 3 Temperature Oral F [96.4-99.1 DegF] 98 DegF (12/26/16 8:14 PM) 97.7 DegF (12/26/16 1:44 PM) 98.3 DegF (12/25/16 8:57 PM) Temperature Axillary F [95.4-98.1 DegF] 98.2 DegF *HI* (12/26/16 8:28 AM) 97.4 DegF (12/22/16 8:00 AM) 97.7 DegF (12/12/16 10:20 AM) Peripheral Pulse Rate [60-100 bpm] 90 bpm (12/26/16 1:44 PM) 82 bpm (12/26/16 8:28 AM) 74 bpm (12/25/16 8:57 PM) Respiratory Rate [14-20 br/min] 20 br/min (12/26/16 8:14 PM) 18 br/min (12/26/16 1:44 PM) 16 br/min (12/26/16 8:28 AM) Systolic Blood Pressure [90-140 mmHg] 114 mmHg (12/26/16 1:44 PM) 144 mmHg *HI* (12/26/16 8:28 AM) 119 mmHg (12/25/16 8:57 PM) Diastolic Blood Pressure [60-90 mmHg] 73 mmHg (12/26/16 1:44 PM) 86 mmHg (12/26/16 8:28 AM) 71 mmHg (12/25/16 8:57 PM) Extremity used to obtain blood pressure Right Arm (12/16/16 10:56 PM) Cuff Size. Medium (12/16/16 10:56 PM) Peripheral Pulse Rate with Activity 66 bpm (12/25/16 8:15 AM) 86 bpm (12/17/16 8:35 AM) Respiratory Rate with Activity 22 br/min (12/23/16 9:05 AM) Vital Signs Additional Information pt. requested 2.5 L using portable tank while walking (12/14/16 1:30 PM) Vital Signs w/ Activity Additional Info This reading was after 8 min. on UE ergometer. 02 sat. increased to 94% in 1 min. with cues to cease mouth breathing and begin PLB. (12/25/16 8:15 AM) post 1 st gait rep.; 94 % , 85 HR post 2nd gait. (12/17/16 8:35 AM) Temperature Axillary [35.2-36.7 DegC] 36.8 DegC *HI* (12/26/16 8:28 AM) 36.5 DegC (12/12/16 10:20 AM) Temperature Oral [35.8-37.3 DegC] 36.5 DegC (12/26/16 1:44 PM) 36.7 DegC (12/24/16 8:46 PM) 36.6 DegC (12/24/16 3:37 PM) Problem List Condition Effective Dates Status Health Status Inform ant Asthma(Confirmed) Active Balance impairment(Confirmed) Active cardiac dysrhythmias(Confirmed) Active Cognitive impairment(Confirmed) Active Cognitive impairment(Confirmed) Active DM - Diabetes mellitus type II(Confirmed) Active Endurance capacity(Confirmed) Active H/O small calicification Hem orrhage Frontal lobe(Confirmed) Active HTN - Hypertension(Confirmed) Active Impaired exercise tolerance(Confirmed) Active Impaired exercise tolerance(Confirmed) Active Intra-abdominal hernia NOS(Confirmed) Active Memory impairment(Confirmed) Active Muscle weakness(Confirmed) Active Osteoarthrosis NOS(Confirmed) Active Osteoporosis(Confirmed) Active Personal care impairment(Confirmed) Active Personal care impairment(Confirmed) Active personal history of fall(Confirmed) Active Physical mobility impairment(Confirmed) Active Physical mobility impairment(Confirmed) Active Pneumonia(Confirmed) Active Respiratory failure(Confirmed) Active Allergies, Adverse Reactions, Alerts Substance Reaction Severity Status penicillins Active Keflex Active No Known Food Allergies Acti ve Medications acetaminophen 325 mg oral tablet 650 mg = 2 tab, Tab, Oral, Daily PRN, 20 tab, 0 Refill(s), Dispense: 10 day, Pain, Stop date 01/05/17 20:30:00 EST, Print Requisition Start Date: 12/26/16 Stop Date: 01/05/17 Status: Ordered albuterol 2.5 mg/3 mL (0.083%) inhalation solution 2.5 mg, 3 mL, Soln-Inh, NEB, q6hr RT PRN, 360 mL, 0 Refill(s), wheezing, Print Requisition Start Date: 12/26/16 Status: Ordered amitriptyline 25 mg oral tablet 25 mg = 1 tab, Tab, Oral, QHS, 30 tab, 0 Refill(s), Print Requisition Start Date: 12/26/16 Status: Ordered aspirin 81 mg oral tablet, chewable 81 mg = 1 tab, Tab-Chew, Oral, Daily, 30 tab, 0 Refill(s), Print Requisition Start Date: 12/26/16 Status: Ordered atorvastatin 20 mg oral tablet 20 mg = 1 tab, Tab, Oral, QHS, 30 tab, 0 Refill(s), Print Requisition Start Date: 12/26/16 Status: Ordered Bactrim DS 800 mg-160 mg oral tablet 1 tab, Tab, Oral, BID, 28 tab, 0 Refill(s), Dispense: 14 day, Complete 14 days total of antibiotic., Stop date 01/09/17 20:40:00 EST, Print Requisition Start Date: 12/26/16 Stop Date: 01/09/17 Status: Ordered bumetanide 1 mg oral tablet 2 mg = 2 tab, Tab, Oral, q12hr, 120 tab, 0 Refill(s), Print Requisition Start Date: 12/26/16 Status: Ordered citalopram 20 mg oral tablet 40 mg = 2 tab, Tab, Oral, Daily, 60 tab, 0 Refill(s), Print Requisition Start Date: 12/26/16 Status: Ordered Dakins Quarter Strength 0.125% topical solution 1 lavonne, Soln-Top, TOP BID, 1 bottle, Refill(s) 3, moisten gauze and place it loosely in wound bed, cover with dry gauze and abd then wrap with melissa, Print Requisition Start Date: 12/26/16 Status: Ordered Dulcolax Laxative 10 mg rectal suppository 10 mg = 1 supp, Supp, NV, Daily PRN, 10 supp, 0 Refill(s), Constipation, Print Requisition Start Date: 12/26/16 Status: Ordered fluticasone furoate 100 mcg inhalation powder 100 mcg, 1 puff, Powder, INH, Daily RT, 1 bottle, 0 Refill(s), Print Requisition Start Date: 12/26/16 Status: Ordered folic acid 1 mg oral tablet 1 mg = 1 tab, Tab, Oral, Daily, 30 tab, 0 Refill(s) Start Date: 12/09/16 Status: Ordered gabapentin 300 mg oral capsule 300 mg = 1 cap, Cap, Oral, TID, 90 cap, 0 Refill(s), Print Requisition Start Date: 12/26/16 Status: Ordered insulin aspart 100 units/mL subcutaneous solution Standard, Injection-Insulin (soln), Subcutaneous, ACHS, 10 mL, 0 Refill(s), For BS <200 = 0 units BS 200-250 = 2 units BS 251-300 = 4 units BS 301-350 = 6 units BS >350 = 8 units and call MD, Print Requisition Start Date: 12/26/16 Status: Ordered insulin aspart 100 units/mL subcutaneous solution 6 units, Injection-Insulin (soln), Subcutaneous, TIDmeals, 6 mL, 0 Refill(s), Hold for blood sugar <100, Print Requisition Start Date: 12/26/16 Status: Ordered Levemir 100 units/mL subcutaneous solution 26 units, Injection-Insulin (soln), Subcutaneous, QHS, 10 mL, 0 Refill(s), Print Requisition Start Date: 12/26/16 Status: Ordered levocetirizine 5 mg oral tablet 5 mg, 1 tab, Tab, Oral, qPM, 30 tab, 0 Refill(s) Start Date: 12/09/16 Status: Ordered lidocaine 2% topical gel 1 lavonne, Gel-Lavonne, TOP As Indicated, PRN, 1 tube(s), Refill(s) 0, Other (see comment), Print Requisition Start Date: 12/26/16 Status: Ordered melatonin 3 mg oral tablet 6 mg = 2 tab, Tab, Oral, QHS, 60 tab, 0 Refill(s), Dispense: 30 day, Stop date 01/25/17 20:37:00 EST, Print Requisition Start Date: 12/26/16 Stop Date: 01/25/17 Status: Ordered methocarbamol 500 mg oral tablet 250 mg = 0.5 tab, Tab, Oral, q6hr, 28 tab, 0 Refill(s), Dispense: 14 day, Stop date 01/09/17 20:37:00 EST, Print Requisition Start Date: 12/26/16 Stop Date: 01/09/17 Status: Ordered omeprazole 40 mg oral delayed release capsule 40 mg = 1 cap, Cap-DR, Oral, Daily, 0 Refill(s) Start Date: 12/09/16 Status: Ordered oxyCODONE 5 mg oral tablet 10 mg = 2 tab, Tab, Oral, q6hr PRN, 56 tab, 0 Refill(s), Dispense: 7 day, PAIN (Scale 7-10), Stop date 01/02/17 20:38:00 EST, Print Requisition Start Date: 12/26/16 Stop Date: 01/02/17 Status: Ordered potassium chloride 10 mEq oral tablet, extended release 40 mEq = 4 tab, Tab-ER, Oral, Daily, 120 tab, 0 Refill(s), Print Requisition Start Date: 12/26/16 Status: Ordered Vitamin D2 50,000 intl units (1.25 mg) oral capsule 50,000 IntlUnit = 1 cap, Oral, qMonth, 0 Refill(s) Start Date: 12/09/16 Status: Ordered Results LABORATORY Most recent to oldest [Reference Range]: 1 2 3 C-Reactive Protein HSL [<=1.0 mg/dL] 6.1 mg/dL *HI* (12/10/16 5:57 AM) Glucose POC RALS [74-106 mg/dL] 192 mg/dL *HI* (12/27/16 7:12 AM) 225 mg/dL *HI* (12/26/16 9:06 PM) 160 mg/dL *HI* (12/26/16 5:12 PM) Blood Glucose, Capillary [74-106 mg/dL] 192 mg/dL *HI* (12/27/16 8:19 AM) 192 mg/dL *HI* (12/27/16 7:30 AM) 160 mg/dL *HI* (12/26/16 5:27 PM) Vancomycin Trough HSL [12.0-18.0 mcg/mL] 21.8 mcg/mL *HI* (12/25/16 2:21 PM) 17.1 mcg/mL (12/20/16 3:06 PM) Color UR HSL [yellow] yellow (12/08/16 5:18 PM) Appearance UR HSL [clear] clear (12/08/16 5:18 PM) Specific [place] UR HSL [1.010-1.040] 1.010 (12/08/16 5:18 PM) pH UR HSL [5] 6.5 (12/08/16 5:18 PM) Glucose UR HSL [Normal] Normal (12/08/16 5:18 PM) Bilirubin UR HSL [Neg] Neg (12/08/16 5:18 PM) Ketones UR HSL [Neg] Neg (12/08/16 5:18 PM) Blood UR HSL [Neg] Neg (12/08/16 5:18 PM) Protein UR HSL [Neg] Neg (12/08/16 5:18 PM) Urobilinogen UR HSL [Normal] Normal (12/08/16 5:18 PM) Nitrite UR HSL [Neg] Neg (12/08/16 5:18 PM) Leukocyte Esterase UR HSL [Neg] Neg (12/08/16 5:18 PM) Squamous Epithelials UR HSL [0-5] Rare (12/08/16 5:18 PM) Bacteria UR HSL None Seen (12/08/16 5:18 PM) WBC UR HSL [None Seen] None Seen (12/08/16 5:18 PM) RBC UR HSL [None Seen] None Seen (12/08/16 5:18 PM) Specimen Source UR HSL Clean Catch (12/08/16 5:18 PM) WBC HSL [4.5-11.5 x10(3)/mcL] 9.3 x10(3)/mcL (12/25/16 5:00 AM) 8.6 x10(3)/mcL (12/21/16 6:20 AM) 10.5 x10(3)/mcL (12/18/16 6:17 AM) RBC HSL [3.70-5.20 x10(6)/mcL] 3.33 x10(6)/mcL *LOW* (12/25/16 5:00 AM) 3.23 x10(6)/mcL *LOW* (12/21/16 6:20 AM) 3.10 x10(6)/mcL *LOW* (12/18/16 6:17 AM) Hemoglobin HSL [12.0-15.7 gm/dL] 8.2 gm/dL *LOW* (12/25/16 5:00 AM) 7.8 gm/dL 1 *CRIT* (12/21/16 6:20 AM) 7.5 gm/dL 2 *CRIT* (12/18/16 6:17 AM) Hematocrit HSL [35.0-46.0 %] 29.8 % *LOW* (12/25/16 5:00 AM) 28.0 % *LOW* (12/21/16 6:20 AM) 27.0 % *LOW* (12/18/16 6:17 AM) MCV HSL [78.6-102.2 fL] 89.5 fL (12/25/16 5:00 AM) 86.7 fL (12/21/16 6:20 AM) 87.1 fL (12/18/16 6:17 AM) MCH HSL [26.0-34.0 pg] 24.6 pg *LOW* (12/25/16 5:00 AM) 24.1 pg *LOW* (12/21/16 6:20 AM) 24.2 pg *LOW* (12/18/16 6:17 AM) MCHC HSL [31.8-35.1 gm/dL] 27.5 gm/dL *LOW* (12/25/16 5:00 AM) 27.9 gm/dL *LOW* (12/21/16 6:20 AM) 27.8 gm/dL *LOW* (12/18/16 6:17 AM) Platelet HSL [150-450 x10(3)/mcL] 650 x10(3)/mcL *HI* (12/25/16 5:00 AM) 712 x10(3)/mcL *HI* (12/21/16 6:20 AM) 690 x10(3)/mcL *HI* (12/18/16 6:17 AM) RDW-CV% HSL [11.7-14.4 %] 25.8 % *HI* (12/25/16 5:00 AM) 26.2 % *HI* (12/21/16 6:20 AM) 26.2 % *HI* (12/18/16 6:17 AM) RDW-SD HSL [36.4-46.3 fL] 79.7 fL *HI* (12/25/16 5:00 AM) 78.4 fL *HI* (12/21/16 6:20 AM) 76.6 fL *HI* (12/18/16 6:17 AM) MPV HSL 9.4 *NA* (12/25/16 5:00 AM) 9.3 *NA* (12/21/16 6:20 AM) 9.7 *NA* (12/18/16 6:17 AM) Differential? HSL Yes *NA* (12/11/16 11:46 AM) Yes *NA* (12/10/16 5:57 AM) Yes *NA* (12/09/16 7:45 AM) Neutrophil Auto HSL [39.6-77.8 %] 58.0 % (12/25/16 5:00 AM) 58.6 % (12/21/16 6:20 AM) 67.6 % (12/18/16 6:17 AM) Lymphocyte Auto HSL [17.5-52.8 %] 22.8 % (12/25/16 5:00 AM) 23.8 % (12/21/16 6:20 AM) 17.4 % *LOW* (12/18/16 6:17 AM) Monocyte Auto HSL [3.0-10.4 %] 11.6 % *HI* (12/25/16 5:00 AM) 11.1 % *HI* (12/21/16 6:20 AM) 10.7 % *HI* (12/18/16 6:17 AM) Eosinophil Auto HSL [0.0-7.0 %] 6.0 % (12/25/16 5:00 AM) 4.6 % (12/21/16 6:20 AM) 2.4 % (12/18/16 6:17 AM) Basophil Auto HSL [0.0-0.9 %] 0.7 % (12/25/16 5:00 AM) 1.0 % *HI* (12/21/16 6:20 AM) 1.0 % *HI* (12/18/16 6:17 AM) Immature Gran Auto HSL [0.0-0.5 %] 0.9 % *HI* (12/25/16 5:00 AM) 0.9 % *HI* (12/21/16 6:20 AM) 0.9 % *HI* (12/18/16 6:17 AM) Neutrophil Absolute HSL [1.60-6.90 x10(3)/mcL] 5.42 x10(3)/mcL (12/25/16 5:00 AM) 5.06 x10(3)/mcL (12/21/16 6:20 AM) 7.12 x10(3)/mcL *HI* (12/18/16 6:17 AM) Lymphocyte Absolute HSL [0.9-2.8 x10(3)/mcL] 2.1 x10(3)/mcL (12/25/16 5:00 AM) 2.1 x10(3)/mcL (12/21/16 6:20 AM) 1.8 x10(3)/mcL (12/18/16 6:17 AM) Monocyte Absolute HSL [<=1.00 x10(3)/mcL] 1.08 x10(3)/mcL *HI* (12/25/16 5:00 AM) 0.96 x10(3)/mcL (12/21/16 6:20 AM) 1.12 x10(3)/mcL *HI* (12/18/16 6:17 AM) Eosinophil Absolute HSL [0.00-0.40 x10(3)/mcL] 0.56 x10(3)/mcL *HI* (12/25/16 5:00 AM) 0.40 x10(3)/mcL (12/21/16 6:20 AM) 0.25 x10(3)/mcL (12/18/16 6:17 AM) Basophil Absolute HSL [0.00-0.05 x10(3)/mcL] 0.07 x10(3)/mcL *HI* (12/25/16 5:00 AM) 0.09 x10(3)/mcL *HI* (12/21/16 6:20 AM) 0.10 x10(3)/mcL *HI* (12/18/16 6:17 AM) Immature Gran Absolute HSL [0.00-0.04 x10(3)/mcL] 0.08 x10(3)/mcL *HI* (12/25/16 5:00 AM) 0.08 x10(3)/mcL *HI* (12/21/16 6:20 AM) 0.09 x10(3)/mcL *HI* (12/18/16 6:17 AM) Segs Man HSL [40-78 %] 74 % (12/12/16 4:56 AM) 70 % (12/11/16 11:46 AM) 67 % (12/10/16 5:57 AM) Band Man HSL [<=5 %] 2 % (12/12/16 4:56 AM) 3 % (12/10/16 5:57 AM) Lymphocyte Man HSL [18-53 %] 14 % *LOW* (12/12/16 4:56 AM) 22 % (12/11/16 11:46 AM) 25 % (12/10/16 5:57 AM) Monocyte Man HSL [3-10] 10 (12/12/16 4:56 AM) 7 (12/11/16 11:46 AM) 2 *LOW* (12/10/16 5:57 AM) Eosinophil Man HSL [<=7 %] 0 % (12/12/16 4:56 AM) 1 % (12/11/16 11:46 AM) 0 % (12/10/16 5:57 AM) Basophil Man HSL [<=1 %] 0 % (12/12/16 4:56 AM) 0 % (12/11/16 11:46 AM) 0 % (12/10/16 5:57 AM) Metamyelocyte Man HSL 1 % *NA* (12/09/16 7:45 AM) Abn Lymphocyte Man HSL 3 % *NA* (12/10/16 5:57 AM) Nucleated RBC Man HSL 3 % *NA* (12/12/16 4:56 AM) Platelet Estimation HSL Adequate (12/12/16 4:56 AM) Adequate (12/11/16 11:46 AM) Adequate (12/10/16 5:57 AM) RBC Morphology HSL Slightly Abn. *ABN* (12/12/16 4:56 AM) Slightly Abn. *ABN* (12/11/16 11:46 AM) Slightly Abn. *ABN* (12/10/16 5:57 AM) Hypochromasia HSL 1+ *ABN* (12/12/16 4:56 AM) 1+ *ABN* (12/11/16 11:46 AM) 1+ *ABN* (12/10/16 5:57 AM) Microcyte HSL Rare *ABN* (12/12/16 4:56 AM) Macrocyte HSL 1+ *ABN* (12/12/16 4:56 AM) Anisocyte HSL 1+ *ABN* (12/12/16 4:56 AM) 1+ *ABN* (12/11/16 11:46 AM) 1+ *ABN* (12/10/16 5:57 AM) Poikilocyte HSL 1+ *ABN* (12/12/16 4:56 AM) Ovalo/Elliptocyte HSL Rare (12/12/16 4:56 AM) Schistocyte HSL Rare *ABN* (12/12/16 4:56 AM) Estimated Creatinine Clearance 47.48 mL/min (12/27/16 7:03 AM) 47.48 mL/min (12/26/16 6:51 AM) 47.48 mL/min (12/25/16 9:52 AM) Creatinine Level 0.67 mg/dL (12/25/16 5:00 AM) 0.72 mg/dL (12/21/16 6:20 AM) 0.65 mg/dL (12/20/16 6:00 AM) Hemoglobin A1c - QST [<5.7 % of total Hgb (calc)] 7.9 % of total Hgb (calc) 3 *HI* (12/09/16 7:45 AM) Sodium HSL [138-146 mmol/L] 138 mmol/L (12/25/16 5:00 AM) 137 mmol/L *LOW* (12/21/16 6:20 AM) 136 mmol/L *LOW* (12/20/16 6:00 AM) Potassium HSL [3.6-5.1 mmol/L] 3.7 mmol/L (12/25/16 5:00 AM) 4.6 mmol/L (12/21/16 6:20 AM) 4.3 mmol/L (12/20/16 6:00 AM) Chloride HSL [101-111 mmol/L] 96 mmol/L *LOW* (12/25/16 5:00 AM) 96 mmol/L *LOW* (12/21/16 6:20 AM) 97 mmol/L *LOW* (12/20/16 6:00 AM) Carbon Dioxide HSL [22.0-32.0 mmol/L] 36.0 mmol/L *HI* (12/25/16 5:00 AM) 36.0 mmol/L *HI* (12/21/16 6:20 AM) 34.0 mmol/L *HI* (12/20/16 6:00 AM) Anion Gap HSL [8-16 mmol/L] 10 mmol/L (12/25/16 5:00 AM) 10 mmol/L (12/21/16 6:20 AM) 9 mmol/L (12/20/16 6:00 AM) Glucose HSL [74-118 mg/dL] 174 mg/dL *HI* (12/25/16 5:00 AM) 181 mg/dL *HI* (12/21/16 6:20 AM) 119 mg/dL *HI* (12/20/16 6:00 AM) BUN HSL [8.0-26.0 mg/dL] 11.0 mg/dL (12/25/16 5:00 AM) 11.0 mg/dL (12/21/16 6:20 AM) 9.0 mg/dL (12/20/16 6:00 AM) Creatinine HSL [0.44-1.00 mg/dL] 0.67 mg/dL (12/25/16 5:00 AM) 0.72 mg/dL (12/21/16 6:20 AM) 0.65 mg/dL (12/20/16 6:00 AM) eGFR-AA HSL 178 *NA* (12/25/16 5:00 AM) 164 *NA* (12/21/16 6:20 AM) 185 *NA* (12/20/16 6:00 AM) eGFR-Non AA HSL 147 *NA* (12/25/16 5:00 AM) 136 *NA* (12/21/16 6:20 AM) 153 *NA* (12/20/16 6:00 AM) BUN/Creat Ratio HSL [5.0-20.0 ratio] 16.4 ratio (12/25/16 5:00 AM) 15.3 ratio (12/21/16 6:20 AM) 13.8 ratio (12/20/16 6:00 AM) Calcium Total HSL [8.9-10.3 mg/dL] 9.2 mg/dL (12/25/16 5:00 AM) 9.0 mg/dL (12/21/16 6:20 AM) 9.1 mg/dL (12/20/16 6:00 AM) Albumin HSL [3.5-5.0 gm/dL] 3.0 gm/dL *LOW* (12/25/16 5:00 AM) 2.9 gm/dL *LOW* (12/21/16 6:20 AM) 3.1 gm/dL *LOW* (12/18/16 6:17 AM) Prealbumin HSL [18-38 mg/dL] 23 mg/dL (12/09/16 7:45 AM) Protein Total HSL [6.5-8.1 gm/dL] 6.6 gm/dL (12/25/16 5:00 AM) 6.2 gm/dL *LOW* (12/21/16 6:20 AM) 6.6 gm/dL (12/18/16 6:17 AM) Bilirubin Total HSL [0.30-1.20 mg/dL] 0.56 mg/dL (12/25/16 5:00 AM) 0.37 mg/dL (12/21/16 6:20 AM) 0.46 mg/dL (12/18/16 6:17 AM) Magnesium HSL [1.8-2.5 mg/dL] 1.7 mg/dL *LOW* (12/13/16 10:20 AM) Alkaline Phosphatase HSL [32-91 IU/L] 55 IU/L (12/25/16 5:00 AM) 55 IU/L (12/21/16 6:20 AM) 58 IU/L (12/18/16 6:17 AM) AST HSL [15-41 IU/L] 20 IU/L (12/25/16 5:00 AM) 11 IU/L *LOW* (12/21/16 6:20 AM) 18 IU/L (12/18/16 6:17 AM) ALT HSL [14-54 IU/L] 13 IU/L *LOW* (12/25/16 5:00 AM) 15 IU/L (12/21/16 6:20 AM) 17 IU/L (12/18/16 6:17 AM) Thyroid Stimulating Hormone HSL [0.350-5.000 uIU/mL] 5.830 uIU/mL *HI* (12/09/16 7:45 AM) 1Result Comment: Critical Result called to and read back by at _12/21/2016 11:28:57 EST by _[facility]. 2Result Comment: Critical result called to Dr. Hawley 12/18/2016 10:13:07 EST by Bernice Martinez MT([facility]) 3Result Comment: For someone without known diabetes, a hemoglobin A1c value of 6.5% or greater indicates that they may have diabetes and this should be confirmed with a follow-up test. For someone with known diabetes, a value <7% indicates that their diabetes is well controlled and a value greater than or equal to 7% indicates suboptimal control. A1c targets should be individualized based on duration of diabetes, age, comorbid conditions, and other considerations. Currently, no consensus exists regarding use of hemoglobin A1c for diagnosis of diabetes for children. Lab test performed by: Lab Mnemonic: [facility] [address] [id number] KETAN MATT MD Microbiology Reports TEST:Culture Wound and Gram Stain HSL STATUS:Auth (Verified) BODY SITE:Left Ankle SOURCE:[facility] COLLECTED DATE/TIME:12/18/16 2:45 PM FINAL REPORT Moderate growth of Bacillus species Heavy growth of diphtheroids No further identification will be performed. STAIN REPORT Few WBCs Many gram positive rods Few gram positivie cocci Immunizations Given and Recorded Vaccine Date Status Refusal Reason diphtheria/pertussis, acel/tetanus adult 1 12/19/16 Given 1Early/Late Reason: Nursing Judgment
--- OUTSIDE RECORDS SUMMARY | 2023-08-13 17:21 | XMS_ITS | Clinical Summary ---
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 Rice Name Role Phone Delfino Valdez MD [phone] [ ] Conditions or Problems Problem Name Problem Code Onset Date Status Entry Date Provider Comment Standard Description Annotate Chronic venous stasis disease 45710972 (SNOMED CT) Active 04/27 Adri Prabhakar Stasis dermatitis DM II with diabetic PVD 062567409 (SNOMED CT) Active 04/27 Adri Prabhakar Peripheral vascular disease 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, tibia, limited to breakdown of skin L97.821 (ICD-10-CM) Active 04/27 Adri Prabhakar Non-pressure chronic ulcer of other part of left lower leg limited to breakdown of skin Non-pressure chronic ulcer of right lower leg, other part, limited to breakdown of skin L97.811 (ICD-10-CM) Active 04/12 Sharyn W Non-pressure chronic ulcer of other part of right lower leg limited to breakdown of skin Diabetes mellitus, type II with peripheral vascular disorder, with gangrene 276118591 (SNOMED CT) Active 03/13 Sharyn W Peripheral circulatory disorder due to type 2 diabetes mellitus Skin tissue necrosis 24619642 (SNOMED CT) Inactive 03/13 Sharyn W Skin necrosis Abrasion, left lower leg, subsequent encounter S80.812D (ICD-10-CM) Inactive 03/13 Sharyn W Abrasion, left lower leg, subsequent encounter Cellulitis, leg, right 005773764 (SNOMED CT) Active 03/13 Adri Prabhakar Cellulitis of lower limb Skin tissue necrosis 29973373 (SNOMED CT) Removed 03/13 Adri Prabhakar Skin necrosis Cellulitis, leg, left 362724421 (SNOMED CT) Active 03/13 Adri Prabhakar Cellulitis of lower limb Abrasion, left lower leg, subsequent encounter S80.812D (ICD-10-CM) Removed 03/13 Adri Prabhakar Abrasion, left lower leg, subsequent encounter DM II with diabetic PVD 796846826 (SNOMED CT) Inactive 03/13 Adri Prabhakar Peripheral vascular disease DM, type II, poorly controlled E11.65 (ICD-10-CM) Active 03/13 Adri Prabhakar Type 2 diabetes mellitus with hyperglycemia Hx of falling 863716235 (SNOMED CT) Active 03/13 Adri Prabhakar History of fall Other obesity due to excess calories 387684155 (SNOMED CT) Active 03/13 Jenn Philipire Wong Simple obesity Medications Medication Instructions Start Date Stop Date Generic Name NDC Provider DOXYCYCLINE HYCLATE 100 MG TABS Take one pill twice daily. DOXYCYCLINE HYCLATE 56152518135 Delfino Valdez MD DOXYCYCLINE MONOHYDRATE 100 MG TABS Take one pill twice daily. DOXYCYCLINE MONOHYDRATE 82270439307 Delfino Valedz MD DIAZEPAM GEL twice a day in the morning and before bed DIAZEPAM GEL 05399195142 Katie Elkins CELEXA 40 MG TABS Take 1 tablet by mouth daily at bedtime CITALOPRAM HYDROBROMIDE 70350666168 Katie Elkins HYDROCODONE-ACETAM INOPHEN 5-325 MG TABS prn HYDROCODONE-ACETA MINOPHEN 22717820792 Katie Elkins HYDROXYZINE HCL 50 MG TABS Take one (1) tablet by mouth three times a day HYDROXYZINE HCL 73203760875 Katie Elkins TIZANIDINE HCL 4 MG CAPS Take one (1) tablet by mouth twice a day prn TIZANIDINE HCL 93594117474 Katie Severo FUROSEMIDE 40 MG TABS Take one (1) tablet by mouth three times a day FUROSEMIDE 42689837491 Katie Elkins ATORVASTATIN CALCIUM 80 MG TABS Take 1 tablet by mouth daily at bedtime ATORVASTATIN CALCIUM 47249068768 Katie Severo HM MAGNESIUM 400 MG ORAL TABLET Take 1 tablet by mouth daily MAGNESIUM OXIDE 71188856687 Katie Elkins INVOKANA 100 MG TABS Take 1 tablet by mouth daily in the morning CANAGLIFLOZIN 53856565413 Katie Elkins METFORMIN HCL 1000 MG TABS Take one (1) tablet by mouth twice a day METFORMIN HCL 07173643220 Katie Elkins AMBIZINE 25 MG ORAL TABLET prn MECLIZINE HCL 29227228952 Katie Elkins DICYCLOMINE HCL 10 MG CAPS prn DICYCLOMINE HCL 63207618930 Katie Elkins LISINOPRIL 10 MG TABS Take 1 tablet by mouth daily LISINOPRIL 02994299700 Katie Elkins ASPIRIN 325 MG TABS ASPIRIN 00858313480 Katie Elkins LANTUS SOLOSTAR 100 UNIT/ML SOPN 50 units at bedtime INSULIN GLARGINE 91555753172 Katie Elkins VENTOLIN HFA 108 (90 Base) MCG/ACT AERS 2 puffs prn ALBUTEROL SULFATE 79776798124 Katie Elkins SYMBICORT 160-4.5 MCG/ACT AERO 2 puffs twice daily prn BUDESONIDE-FORMOT SKYE FUMARATE 85001453808 Katie Elkins AMITRIPTYLINE HCL 25 MG TABS Take 1 tablet by mouth daily at bedtime AMITRIPTYLINE HCL 53192987413 Katie Elkins *NEEDS MED LIST UPDATE -SEE LIST* 04/03 *NEEDS MED LIST UPDATE -SEE LIST* Katie Elkins DAKINS SOLUTION DAKINS SOLN [id number] Andrew Elias *NEEDS MED LIST UPDATE -SEE LIST* 04/03 *NEEDS MED LIST UPDATE -SEE LIST* Andrew Elias DOXYCYCLINE HYCLATE 100 MG CAPS take 1 cap po BID DOXYCYCLINE HYCLATE 06783758613 Delfino Valdez MD ACETAMINOPHEN 325 MG TABS Take 2 tabs by mouth daily as needed 03/14 ACETAMINOPHEN 91606294300 Delfino Valdez MD BACTRIM DS 800-160 MG TABS Take one (1) tablet by mouth twice a day 03/14 SULFAMETHOXAZOLE- TRIMETHOPRIM 10785785060 Delfino Valdez MD ATORVASTATIN CALCIUM 20 MG TABS 1 tab by mouth qhs 03/14 ATORVASTATIN CALCIUM 91950644552 Delfino Valdez MD BUMETANIDE 1 MG TABS Take 2 tabs by mouth every 12 hours 03/14 BUMETANIDE 84188666092 Delfino Valdez MD DAKINS (02/08 STRENGTH) 0.125 % SOLN 1 application twice daily 03/14 DAKINS 73680636226 Delfino Valdze MD NOVOLOG 100 UNIT/ML SUBCUTANEOUS SOLUTION Inject subQ with meals 03/14 INSULIN ASPART 05468101852 Delfino Valdez MD KLOR-CON 10 10 MEQ CR-TABS Take 4 tabs by mouth daily 03/14 POTASSIUM CHLORIDE 96828544120 Delfino Valdez MD VITAMIN D2 50 MCG (2000 UT) TABS 50,000 one cap a month ERGOCALCIFEROL 25891447592 Jenn TAPIA-CON 10 10 MEQ CR-TABS Take 4 tabs by mouth daily 2021/0 06/03 POTASSIUM CHLORIDE 94386010410 Jenn Back OXYCODONE HCL 5 MG TABS Take 2 tabs every 6 hours as needed OXYCODONE HCL 54953015256 Jenn Back OMEPRAZOLE 40 MG CPDR Take 1 tablet by mouth daily OMEPRAZOLE 35871636242 Jenn Back METHOCARBAMOL 500 MG TABS Take 0.5 tab by mouth every 6 hours METHOCARBAMOL 87767264486 Jenn Back MELATONIN 3 MG TABS Take 2 tabs by mouth qhs MELATONIN 42127883719 Jenn Back LIDOCAINE HCL 2 % EXTERNAL GEL Apply topically as needed LIDOCAINE HCL 74931600296 Jenn Back LEVOCETIRIZINE DIHYDROCHLORIDE 5 MG TABS Take 1 tab by mouth at night LEVOCETIRIZINE DIHYDROCHLORIDE 57948316503 Jenn Back NOVOLOG 100 UNIT/ML SUBCUTANEOUS SOLUTION Inject subQ with meals 05/06 INSULIN ASPART 96330241939 Jenn Back GABAPENTIN 300 MG CAPS Take one (1) tablet by mouth three times a day GABAPENTIN 93460343244 Jenn Back FOLIC ACID 1 MG TABS Take 1 tablet by mouth daily FOLIC ACID 44939865239 Jenn Back BREO ELLIPTA 100-25 MCG/ACT AEPB Inhale 1 puff daily FLUTICASONE FUROATE-VILANTERO L 30678878121 Jenn Back DULCOLAX STOOL SOFTENER 100 MG CAPS 1 supp as needed DOCUSATE SODIUM 83253214419 Jenn Back DAKINS (1/4 STRENGTH) 0.125 % SOLN 1 application twice daily 05/06 DAKINS 06770038954 Jenn Back CELEXA 20 MG TABS Take 2 tabs by mouth daily CITALOPRAM HYDROBROMIDE 10692773376 Jenn Back BUMETANIDE 1 MG TABS Take 2 tabs by mouth every 12 hours 05/06 BUMETANIDE 06693972364 Jenn Back BACTRIM DS 800-160 MG TABS Take one (1) tablet by mouth twice a day 05/06 SULFAMETHOXAZOLE- TRIMETHOPRIM 29797562314 Jenn Back ATORVASTATIN CALCIUM 20 MG TABS 1 tab by mouth qhs 2 ATORVASTATIN CALCIUM 83629077432 Jenn Back ADULT ASPIRIN EC LOW STRENGTH 81 MG ORAL TABLET DELAYED RELEASE Take 1 tablet by mouth daily ASPIRIN 58418650206 Jenn Back AMITRIPTYLINE HCL 25 MG TABS Take by mouth every hour 04/03 AMITRIPTYLINE HCL 75819017426 Jenn Back ALBUTEROL SULFATE (2.5 MG/3ML) 0.083% NEBU Inhale 3mL every 6 hours as needed ALBUTEROL SULFATE 41490447471 Jenn Back ACETAMINOPHEN 325 MG TABS Take 2 tabs by mouth daily as needed 03/14 ACETAMINOPHEN 66873461000 Jenn Back Medications Administered No information available. 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 Dietary management education, guidance, and counseling (procedure) SMOK ADVICE yes Smoking c essation education (procedure) ORALTOBACUSE Never Tobacco smoking status CIGARET SMKG yes Tobacco smoking status SMOK STATUS Current every da y smoker Tobacco smoking status Plan of Care Type Date Detail Pending order New Oral Antibio tic Pending order Continue oral an tibiotics Pending order Ceftriaxone Pending order PIV/Butterfly Pending order Continue oral an tibiotics Pending order Continue oral an tibiotics Pending order Hepatitis C Atb: (ICD 10 Code: Z72.89) Patient education Medications Patient education Medications Patient education Medications Procedures Code Procedure Name Date Entry Date CPT-Cooral Continue oral antibiotics 20 21/01/07 [id number] Hepatitis C Atb: (ICD 10 Code: Z72.89) 20 21/01/06 Vital Signs Date Name Value Unit Description BMI (Body Mass Index) 35.70 kg/m2 Bod y Mass Index (Ratio) Body Temperature 98.3 [degF] temperat ure E&M BP Diastolic 72 mm[Hg] blood pressu re, diastolic BP Systolic 146 mm[Hg] blood pressur e, systolic Heart Rate 78 /min pulse rate Height 64 [in_us] height E&M Respiratory Rate 16 /min respirat ory rate E&M Weight Measured 208 [lb_av] weight E& M Immunizations No information available. Advance Directives Directive Description Start Date NO ADVANCED DIRECTIVES ESTABLISHED AT IS TIME
[2023-08-13] MEDS: BUDESONIDE 0.5MG/2ML NEB 0.5 MG IH (18:44)
[2023-08-13] MEDS: IPRATROPIUM/ALBUTEROL 3 ML NEB IH (18:44)
[2023-08-13 19:43] LABS: Troponin I 0.02 ng/ml (0.00-0.034)
[2023-08-13 20:44] LABS: POC Glucose,Bedside 157 (70-110)
[2023-08-13] MEDS: GABAPENTIN 300MG CAPSULE 300 MG PO (20:49)
[2023-08-13] MEDS: ATORVASTATIN 40MG TABLET 40 MG PO (20:49)
[2023-08-13] MEDS: INSULIN GLARGINE 100 UNITS/ML 10ML VIAL 10 UNIT SQ (20:50)
[2023-08-13] MEDS: MORPHINE 2MG/ML SYRINGE 2 MG IV (23:17)
[2023-08-14] VITALS (14 sets, daily range): BP systolic 103–166; BP diastolic 41–90; PULSE 44–63; RESP 14–28; TEMP 36.7–37.1; O2SAT 90–97; BMI 35.8
[2023-08-14] MEDS: MORPHINE 2MG/ML SYRINGE 2 MG IV (05:59)
[2023-08-14 06:03] LABS: Basophils % 0.3 % (0.1-2.0); Hematocrit 44.3 % (37.0-47.0); Hemoglobin 13.2 g/dL (12.2-16.2); Lymphocytes # 0.7 K/mm3 (0.7-4.5); Lymphocytes % 7.7 % (10-50); Mean Corpuscular HGB Conc 29.7 g/dL (31.8-35.4); Mean Corpuscular Hemoglobin 23.6 pg (27.0-31.2); Mean Corpuscular Volume 79.4 fl (81-99); Mean Platelet Volume 8.4 fl (7.4-10.4); Monocytes # 0.3 K/mm3 (0.1-1.0); Monocytes % 4.1 % (1.7-9.3); Neutrophils # 7.3 K/mm3 (1.8-7.8); Neutrophils % 87.8 % (37.0-80.0); Platelet Count 348 K/mm3 (142-424); Red Blood Count 5.57 M/mm3 (4.20-5.40); Red Cell Distribution Width 21.7 % (11.5-17.5); White Blood Count 8.4 K/mm3 (4.8-10.8)
[2023-08-14] MEDS: BUDESONIDE 0.5MG/2ML NEB 0.5 MG IH ×2 (06:05→17:59)
[2023-08-14] MEDS: IPRATROPIUM/ALBUTEROL 3 ML NEB IH ×3 (06:05→23:20)
[2023-08-14 06:06] LABS: MANUAL DIFFERENTIAL MANUAL DIFFERENTIAL (MANUAL DIFF)
[2023-08-14 06:11] LABS: Anion Gap 7.4 mEq/L (5-15); Blood Urea Nitrogen 33 mg/dl (7-17); Calcium 9.2 mg/dl (8.4-10.2); Carbon Dioxide 40 mmol/L (22.0-30.0); Chloride 93 mmol/L (98-107); Creatinine Clearance Estimated 59 mL/min (50-200); Estimated Glomerular Filt Rate 40 ml/min (>60); GFR (African American) 49 ML/MIN (>60); Glucose 169 mg/dl (74-100); Magnesium 2.1 mg/dl (1.6-2.3); Potassium 4.4 mmoL/L (3.5-5.1); Sodium 136 mmol/L (136-145)
[2023-08-14 06:14] LABS: Hemoglobin A1C 8.9 % (4.0-6.0)
[2023-08-14 06:19] LABS: NT Pro Brain Natriuretic Pep. 1120 pg/mL (0-125)
[2023-08-14 06:26] LABS: Procalcitonin 0.123 ng/mL (0.0-2.0)
[2023-08-14 07:25] LABS: Lymphocytes % 7 % (10-50); Monocytes % 4 % (2-9); Neutrophils % 89 % (42-76); Total Cells Counted 100
[2023-08-14 07:27] LABS: Hypochromasia 1+; Microcytosis 1+; Platelet Estimate Normal; Poikilocytosis 1+; Target Cells 1+
--- NOTE | 2023-08-14 07:41 | SW/DCPLANNER ---
Addendum entered by Elizabeth Ward 08/15/23 10:21: I updated Lauryn w/ [facility] that the plan is for patient to return [facility] level of care today. Original Note: This patient currently resides at [facility] level of care. I will continue to follow up w/ Lauryn at [facility]. Discharge date is unknown at this time.
[2023-08-14] MEDS: PANTOPRAZOLE 40MG TABLET 40 MG PO (08:01)
[2023-08-14] MEDS: EMPAGLIFLOZIN 10MG TABLET 10 MG PO (08:01)
[2023-08-14] MEDS: AMIODARONE 200MG TABLET 200 MG PO (08:01)
[2023-08-14] MEDS: BUMETANIDE 1MG/4ML VIAL 1 MG IV ×2 (08:01→15:34)
[2023-08-14] MEDS: LEVOTHYROXINE 50MCG (0.05MG) TAB 50 MCG PO (08:01)
[2023-08-14] MEDS: CLOPIDOGREL 75MG TAB 75 MG PO (08:01)
[2023-08-14] MEDS: GABAPENTIN 300MG CAPSULE 300 MG PO ×2 (08:01→20:27)
[2023-08-14] MEDS: HEPARIN SODIUM 5,000 UNIT/ML VIAL 5000 UNIT SQ (08:02)
--- NOTE | 2023-08-14 09:31 | HMH.PHAINT1 ---
Pharmacy Intervention Comments: home medication list verified using MAR from [facility] living
[2023-08-14 11:01] LABS: POC Glucose,Bedside 410 (70-110)
[2023-08-14] MEDS: humaLOG 100 UNITS/ML 10ML VIAL (SSI) SQ ×3 (11:02→20:26)
[2023-08-14] MEDS: HYDROCODONE/APAP 5/325 MG TABLET 1 TAB PO ×3 (12:10→22:12)
--- NOTE | 2023-08-14 14:34 | PC.NURSE ---
Aox 4, 02-3L nc, Bipap at hs, 1800 fluid restriction, 20g L AC SL.
[2023-08-14 15:44] LABS: POC Glucose,Bedside 188 (70-110)
--- NOTE | 2023-08-14 17:30 | EXP.ACUTE.PN ---
Subjective *Date: 08/14/23 *Time: 17:41 Interval history: Patient states breathing slightly improved on iv diuretics , but still short of breath. O diuresis Medical Exam Vital signs and Labs for Last 24 Hours: Vital Signs Temp Pulse Pulse Resp BP Pulse Ox O2 Del Method 08/14/23 16:41 Nasal Cannula 08/14/23 13:44 Nasal Cannula 08/14/23 13:00 Nasal Cannula 08/14/23 12:00 50 L 08/14/23 12:00 57 L 18 146/62 H 90 L BiPAP 08/14/23 11:00 Nasal Cannula 08/14/23 10:00 63 18 132/66 90 L Nasal Cannula 08/14/23 09:00 Nasal Cannula 08/14/23 08:00 98.0 F 08/14/23 08:00 60 08/14/23 08:00 63 18 166/63 H 90 L Nasal Cannula 08/14/23 08:00 90 L Nasal Cannula 08/14/23 06:07 08/14/23 06:06 50 L 08/14/23 06:06 62 08/14/23 06:00 51 L 20 103/54 L 95 BiPAP 08/14/23 04:00 50 L 08/14/23 04:00 96 BiPAP 08/14/23 04:00 44 L 19 124/41 L 94 L BiPAP 08/14/23 02:05 08/14/23 02:00 46 L 14 118/46 L 93 L BiPAP 08/14/23 00:00 50 L 08/14/23 00:00 46 L 20 125/52 L 91 L BiPAP 08/13/23 22:23 50 L 21 123/47 L 92 L BiPAP 08/13/23 22:15 08/13/23 20:00 50 L 08/13/23 20:00 96 BiPAP 08/13/23 20:00 50 L 20 115/46 L 96 BiPAP 08/13/23 18:51 BiPAP 08/13/23 18:45 46 L 08/13/23 18:45 46 L 08/13/23 18:45 94 L BiPAP 08/13/23 18:45 O2 Flow Rate FiO2 08/14/23 16:41 3 08/14/23 13:44 3 08/14/23 13:00 3 08/14/23 12:00 08/14/23 12:00 08/14/23 11:00 3 08/14/23 10:00 3 08/14/23 09:00 3 08/14/23 08:00 08/14/23 08:00 08/14/23 08:00 3 08/14/23 08:00 3 08/14/23 06:07 35 08/14/23 06:06 08/14/23 06:06 08/14/23 06:00 35 08/14/23 04:00 08/14/23 04:00 45 08/14/23 04:00 35 08/14/23 02:05 35 08/14/23 02:00 35 08/14/23 00:00 08/14/23 00:00 30 08/13/23 22:23 40 08/13/23 22:15 30 08/13/23 20:00 08/13/23 20:00 45 08/13/23 20:00 45 08/13/23 18:51 08/13/23 18:45 08/13/23 18:45 08/13/23 18:45 45 08/13/23 18:45 45 Intake and Output 08/14/23 08/14/23 08/14/23 07:59 15:59 23:59 Intake Total 1338 / 1338 Output Total 600 / 1100 500 / 1100 Balance -600 / 238 838 / 238 Intake: Intake, Oral Amount 1338 / 1338 Output: Output, Urine Amount 600 / 1100 500 / 1100 Other: Number of Unmeasured Voids 1 Weight 97.522 kg Patient Weight 08/14/23 23:59 Weight 97.522 kg Laboratory Results - last 24 hr 08/13/23 18:40: Troponin I 0.02 08/13/23 20:37: POC Glucose 157 H 08/14/23 05:20: WBC 8.4, RBC 5.57 H, Hgb 13.2, Hct 44.3, MCV 79.4 L, MCH 23.6 L, MCHC 29.7 L, RDW 21.7 H, Plt Count 348, MPV 8.4, Neut % (Auto) 87.8 H, Lymph % (Auto) 7.7 L, Carter % (Auto) 4.1, Eos % (Auto) 0.0 L, Baso % (Auto) 0.3, Neut # (Auto) 7.3, Lymph # (Auto) 0.7, Carter # (Auto) 0.3, Eos # (Auto) 0.0, Baso # (Auto) 0.0, Total Counted 100, Neutrophils % (Manual) 89 H, Lymphocytes % (Manual) 7 L, Monocytes % (Manual) 4, Platelet Estimate Normal, Hypochromasia 1+, Poikilocytosis 1+, Microcytosis 1+, Target Cells 1+, Ovalocytes , Sodium 136, Potassium 4.4, Chloride 93 L, Carbon Dioxide 40 H, Anion Gap 7.4, BUN 33 H, Creatinine 1.30 H, Estimated Creat Clear 59, Estimated GFR 40 L, Est GFR ( Amer) 49 L, Glucose 169 H D, Hemoglobin A1c 8.9 H, Calcium 9.2, Magnesium 2.1, NT-Pro-B Natriuret Pep 1120 H, Procalcitonin 0.123 08/14/23 10:52: POC Glucose 410 H* 08/14/23 15:37: POC Glucose 188 H I & O for Labs for Last 24 Hours: Intake & Output 08/11/23 08/12/23 08/13/23 08/14/23 23:59 23:59 23:59 23:59 Intake Total 1338 / 1338 Output Total 750 / 750 1100 / 1100 Balance -750 / -750 238 / 238 Weight 99.8 kg 97.522 kg Microbiology Reports for the Last 24 Hours: Microbiology 08/13/23 13:42 Blood Blood Culture - Preliminary NO GROWTH AFTER 24 HOURS 08/13/23 13:33 Blood Blood Culture - Preliminary NO GROWTH AFTER 24 HOURS Head: Present atraumatic ENT: Present normal exam Neck: Present normal inspection Respiratory: Present decreased breath sounds and diminished air movement Cardiac: Present Reg Rate and Rhythm GI: Present soft and normal bowel sounds Extremities: Present normal inspection Skin: Present intact and dry Assessment and Plan *Assessment and plan (1) Acute on chronic heart failure with preserved ejection fraction (HFpEF): Status: Acute Category: Medical Code(s): I50.33 - Acute on chronic diastolic (congestive) heart failure (2) Acute on chronic respiratory failure with hypoxemia: Status: Acute Category: Medical Code(s): J96.21 - Acute and chronic respiratory failure with hypoxia (3) CHF exacerbation: Status: Acute Category: Medical Code(s): I50.9 - Heart failure, unspecified (4) NARCISO (obstructive sleep apnea): Problem Comment: Active patient at [facility] Status: Chronic Category: Medical Code(s): G47.33 - Obstructive sleep apnea (adult) (pediatric) (5) COPD mixed type: Status: Chronic Category: Medical Code(s): J44.9 - Chronic obstructive pulmonary disease, unspecified (6) Atrial fibrillation: Status: Acute Qualifiers: Atrial fibrillation type: unspecified chronic Qualified Code(s): I48.20 - Chronic atrial fibrillation, unspecified Category: Medical Code(s): I48.91 - Unspecified atrial fibrillation (7) Diabetes mellitus, type 2: Status: Acute Qualifiers: Diabetes mellitus complication status: with other specified complication Diabetes mellitus long term care phlebotomist insulin use: with long term care phlebotomist use Qualified Code(s): E11.69 - Type 2 diabetes mellitus with other specified complication; Z79.4 - long term care phlebotomist (current) use of insulin Category: Medical Code(s): E11.9 - Type 2 diabetes mellitus without complications (8) HLD (hyperlipidemia): Status: Acute Qualifiers: Hyperlipidemia type: mixed hyperlipidemia Qualified Code(s): E78.2 - Mixed hyperlipidemia Category: Medical Code(s): E78.5 - Hyperlipidemia, unspecified (9) HTN (hypertension): Status: Acute Qualifiers: Hypertension type: primary hypertension Qualified Code(s): I10 - Essential (primary) hypertension Category: Medical Code(s): I10 - Essential (primary) hypertension (10) Pulmonary hypertension: Status: Acute Category: Medical Code(s): I27.20 - Pulmonary hypertension, unspecified Plan Plan The patient is a 72-year-old female with with dyspnea and identified HFpEF via JANNETH on April 2023 with EF 50% (stage C/NYHA IV). She follows with pulmonology and has identified COPD mixed type with NARCISO and BMI 37. Problems addressed as follows: Acute on chronic HFpEF (stage C/NYHA IV) and pulmonary hypertension ?08/13 patient's breathing slightly improved with diuresis overnight, but states she still feels dyspneic. Will continue cautious IV hydration, and watch BUN/creatinine and volume status closely. Consult cardiology for management advised. ?Telemetry monitoring ?ED chest x-ray with pulmonary edema ?ED proBNP 2390 ?JANNETH (April 2023): EF 50%, LVH, RV hypokinetic, RVSP 35 mmHg ?Accurate I's and O's .Sodium and fluid restriction. Routine weights. IV loop diuretic therapy -cont SGLT2 inhibitor therapy, Avoiding ARNI therapy with presenting TESSIE, Avoiding beta-aliya therapy with identified bradycardia, Avoiding aldosterone antagonist with TESSIE Acute on chronic hypoxic and hypercapnic respiratory failure NARCISO/OHS/COPD overlap/BMI 37 COPD possible exac - 08/13 could also be contributing to patient's dyspnea. Will consult pulmonary for evaluation since patient not improving with IV diuresis as expected. ?08/13 will also IV hydrocortisone and watch patient's blood sugars closely during hospitalization given diabetes. Continue DuoNebs while awake and as needed albuterol shortness of breath -Pulse oximetry monitoring. Oxygen therapy to maintain appropriate oxygen saturations. Home oxygen requirement 2-3L via NC. Currently requiring 5 L. Stridor NIPPV therapy. Shefali/Oseas inhalation therapy. ICS therapy Acute kidney injury Baseline creatinine 0.9 Trending electrolytes and creatinine Avoiding NSAIDs Loop diuretic therapy noted Atrial fibrillation Amiodarone therapy. And monitor closely for drug toxicity Factor Xa inhibitor therapy Coronary artery disease Avoiding triple anticoagulation therapy P2 Y12 inhibitor therapy Statin therapy Avoiding beta-aliya therapy with bradycardia Diabetes with peripheral neuropathy Routine blood sugar monitoring Hemoglobin A1c pending Basal insulin therapy Sliding scale insulin therapy Gabapentin therapy Carbohydrate controlled diet Hypothyroidism Levothyroxine replacement therapy FEN -Routine electrolytes, magnesium and creatinine evaluation Disposition ?Patient not appropriate for hospital disposition will consult cardio/pulmonary and hopefully patient will improve within next 72 hours and be appropriate for hospital discharge. The length of stay for this patient will be 2 midnights or greater due to above diagnoses. 35 minutes of total care time spent this patient with Dr. Florez 08/14/2023
[2023-08-14 20:13] LABS: POC Glucose,Bedside 182 (70-110)
[2023-08-14] MEDS: INSULIN GLARGINE 100 UNITS/ML 10ML VIAL 10 UNIT SQ (20:25)
[2023-08-14] MEDS: APIXABAN 5MG TABLET 5 MG PO (20:26)
[2023-08-14] MEDS: ATORVASTATIN 40MG TABLET 40 MG PO (20:27)
[2023-08-14] MEDS: DOCUSATE SODIUM 100 MG 100 EACH PO (20:27)
[2023-08-14] MEDS: BUSPIRONE HCL 10 MG TABLET PO (20:27)
[2023-08-14] MEDS: HYDROCORTISONE SOD SUCCINATE 100MG VIAL 50 MG IV (23:45)
[2023-08-15] VITALS (8 sets, daily range): BP systolic 118–156; BP diastolic 59–72; PULSE 49–65; RESP 17–20; TEMP 36.3–36.7; O2SAT 91–94; BMI 36.3
[2023-08-15] MEDS: ONDANSETRON 4MG/2ML VIAL 4 MG IV (00:53)
[2023-08-15] MEDS: HYDROCORTISONE SOD SUCCINATE 100MG VIAL 50 MG IV ×2 (04:01→11:28)
[2023-08-15] MEDS: ACETAMINOPHEN 500MG TAB 500 MG PO (04:02)
[2023-08-15] MEDS: HYDROCODONE/APAP 5/325 MG TABLET 1 TAB PO (04:03)
[2023-08-15 05:08] LABS: POC Glucose,Bedside 226 (70-110)
[2023-08-15] MEDS: humaLOG 100 UNITS/ML 10ML VIAL (SSI) SQ ×2 (05:21→11:26)
[2023-08-15] MEDS: BUDESONIDE 0.5MG/2ML NEB 0.5 MG IH (06:17)
[2023-08-15] MEDS: IPRATROPIUM/ALBUTEROL 3 ML NEB IH ×2 (06:17→11:07)
[2023-08-15] MEDS: LEVOTHYROXINE 50MCG (0.05MG) TAB 50 MCG PO (06:22)
[2023-08-15 07:05] LABS: Anion Gap 9.3 mEq/L (5-15); Blood Urea Nitrogen 37 mg/dl (7-17); Calcium 8.9 mg/dl (8.4-10.2); Carbon Dioxide 37 mmol/L (22.0-30.0); Chloride 92 mmol/L (98-107); Creatinine Clearance Estimated 71 mL/min (50-200); Estimated Glomerular Filt Rate 49 ml/min (>60); GFR (African American) 59 ML/MIN (>60); Glucose 224 mg/dl (74-100); Potassium 4.3 mmoL/L (3.5-5.1); Sodium 134 mmol/L (136-145)
[2023-08-15] MEDS: EMPAGLIFLOZIN 10MG TABLET 10 MG PO (08:58)
[2023-08-15] MEDS: AMIODARONE 200MG TABLET 200 MG PO (08:58)
[2023-08-15] MEDS: BUSPIRONE HCL 10 MG TABLET PO (08:58)
[2023-08-15] MEDS: DOCUSATE SODIUM 100 MG CAPSULE PO (08:59)
[2023-08-15] MEDS: BUMETANIDE 1MG/4ML VIAL 1 MG IV (08:59)
[2023-08-15] MEDS: GABAPENTIN 300MG CAPSULE 300 MG PO (08:59)
[2023-08-15] MEDS: LORATADINE 10MG TABLET 10 MG PO (08:59)
[2023-08-15] MEDS: POLYETHYLENE GLYCOL 3350 238GM POWDER 17 GM PO (08:59)
[2023-08-15] MEDS: SPIRONOLACTONE 25MG TABLET 50 MG PO (08:59)
[2023-08-15] MEDS: FERROUS SULFATE 325MG TABLET 325 MG PO (08:59)
[2023-08-15] MEDS: PANTOPRAZOLE 40MG TABLET 40 MG PO (08:59)
[2023-08-15] MEDS: CLOPIDOGREL 75MG TAB 75 MG PO (08:59)
[2023-08-15] MEDS: APIXABAN 5MG TABLET 5 MG PO (08:59)
--- NOTE | 2023-08-15 09:37 | EXP.PULM.CON ---
History of Present Illness History of present illness: Ms. Sena is a 72-year-old female severe COPD, chronic hypoxic and hypercarbic respiratory failure on 2 L oxygen supplementation at baseline and auto CPAP 6-14 at home, concerning left lower lobe pulmonary nodule on her CT from June 2023 you for a 3-month CT chest without contrast presented to the ER with worsening respiratory distress and pulmonary was called for further evaluation and management. [facility] Disclaimer: The information contained in this section may have been updated after the patient was seen, as this information can be updated by other users. Medical History Nodule of left lung Heart attack Encounter for screening for malignant neoplasm of lung COPD mixed type History of smoking 30 or more pack years Dyspnea Bilateral hearing loss due to cerumen impaction Encounter for removal of nasal packing CAD in [place] artery Cardiomyopathy Non-STEMI (non-ST elevated myocardial infarction) Right ventricular dilation Coronary artery disease HFrEF (heart failure with reduced ejection fraction) Pneumonia Diabetes mellitus, type 2 Iron deficiency anemia Pulmonary hypertension Osteoporosis Major depressive disorder Heart failure Depression Lymphedema Insomnia Class 2 obesity due to excess calories with body mass index (BMI) of 39.0 to 39.9 in adult Fibromyalgia Congestive heart failure Atrial fibrillation Anxiety HTN (hypertension) HLD (hyperlipidemia) COPD (chronic obstructive pulmonary disease) BMI 30.0-30.9,adult Osteoarthritis Callus of foot Paresthesia of both lower extremities Onychodystrophy Onychomycosis Diabetic foot Surgical History History of coronary artery stent placement History of bladder surgery H/O: hysterectomy H/O hernia repair Family History Other Diabetes Hyperlipidemia Hypertension No significant family history Social History (Updated 08/13/23 @ 17:17 by Cass Neves RN) Smoking Status: Former smoker tobacco type: cigarettes packs per day: 2 alcohol intake: never substance use type: denies use current occupational status: retired and disabled Travel in the last 8 weeks: None housing: shelter lives independently: No shelter: Yes caffeine: Yes Review of Systems Constitutional Constitutional: Reports anorexia, Reports body ache(s) and Reports fatigue Eyes Eyes: Denies eye discharge, Denies dry eyes, Denies irritation and Denies itchy eyes ENT Ears, Nose, Mouth, and Throat: Denies epistaxis, Denies facial pain, Denies lip swelling and Denies throat swelling *Cardiovascular Cardiovascular: Reports dyspnea, Reports dyspnea on exertion and Reports leg edema *Respiratory Respiratory: Denies change in phlegm color, Reports chest congestion, Reports cough, Reports dyspnea, Reports dyspnea on exertion, Denies excessive phlegm production, Denies hemoptysis, Denies pain on inspiration, Denies pain with cough and Denies wheezing *Gastrointestinal Gastrointestinal: Denies abdominal pain, Denies belching and Denies cramping *Musculoskeletal Musculoskeletal: Reports back pain, Reports myalgias and Reports other (No small joint swelling or Pain) Psychiatric Psychiatric: Denies homicidal ideation and Denies suicidal ideation Endocrine Endocrine: Reports fatigue and Denies heat intolerance Hematologic/Lymphatic Hematologic/Lymphatic: Denies easy bleeding and Denies lymphadenopathy Allergic/Immunologic Allergic/Immunologic: Denies itchy eyes, Denies lip swelling, Denies throat swelling and Denies wheezing Pulmonology Exam Inpatient Vital signs and Labs for Last 24 Hours: Temp Pulse Resp BP Pulse Ox O2 Del Method O2 Flow Rate 97.4 F L 65 17 123/59 L 92 L Nasal Cannula 3 08/15/23 08:00 08/15/23 08:00 08/15/23 08:00 08/15/23 08:00 08/15/23 08:00 08/15/23 08:00 08/15/23 08:00 FiO2 35 08/15/23 02:30 Laboratory Results - last 24 hr 08/14/23 10:52: POC Glucose 410 H* 08/14/23 15:37: POC Glucose 188 H 08/14/23 20:06: POC Glucose 182 H 08/15/23 05:02: POC Glucose 226 H 08/15/23 06:17: Sodium 134 L, Potassium 4.3, Chloride 92 L, Carbon Dioxide 37 H, Anion Gap 9.3, BUN 37 H, Creatinine 1.10 H, Estimated Creat Clear 71, Estimated GFR 49 L, Est GFR ( Amer) 59 D, Glucose 224 H, Calcium 8.9 I & O for Labs for Last 24 Hours: Intake & Output 08/12/23 08/13/23 08/14/23 08/15/23 23:59 23:59 23:59 23:59 Intake Total 1458 / 1938 810 / 810 Output Total 750 / 750 2600 / 2600 550 / 550 Balance -750 / -750 -1142 / -662 260 / 260 Weight 220 lb 0.341 oz 215 lb 218 lb Microbiology Reports for the Last 24 Hours: Microbiology 08/14/23 09:44 Sputum - Expectorated Sputum Gram Stain - Final 08/13/23 13:42 Blood Blood Culture - Preliminary NO GROWTH AFTER 24 HOURS 08/13/23 13:33 Blood Blood Culture - Preliminary NO GROWTH AFTER 24 HOURS Constitutional: Present moderate distress Head: Present normocephalic and atraumatic ENT: Present normal exam, normal oropharynx and mucous membranes moist Neck: Present normal inspection and full ROM Respiratory: Present respiratory distress, rhonchi, crackles and able to speak in complete sentences; Absent wheezes or diminished air movement Cardiac: Present S1/S2, Tachycardia and radial pulses present GI: Present soft and distention; Absent tenderness or guarding Rectal (female): Present deferred (female): Present deferred Skin: Present intact; Absent cyanosis or jaundice Neuro: Present alert, awake and oriented x 3 Extremities: Present normal inspection; Absent clubbing or cyanosis Psychiatric: Present normal affect and cooperative Meds Home Medications and Allergies Home Medications Medication Instructions Recorded Confirmed Type ergocalciferol (vitamin D2) 1,250 1,250 mcg PO .EVERY OTHER WEEK 08/12/20 08/14/23 History mcg (50,000 unit) capsule Supplement albuterol sulfate 90 mcg/actuation 2 puff inhalation Q4HP PRN 12/18/22 08/13/23 History aerosol inhaler Shortness Of Breath Or Wheezing apixaban 5 mg tablet (Eliquis) 5 mg PO BID 12/18/22 08/13/23 History docusate sodium 100 mg tablet 100 mg PO BID 12/18/22 08/13/23 History ferrous sulfate 324 mg (65 mg 324 mg PO DAILY 12/18/22 08/13/23 History iron) tablet,delayed release icosapent ethyl 1 gram capsule 1 g PO BID 12/18/22 08/13/23 History (Vascepa) insulin lispro 100 unit/mL 0 sliding scale dose SQ ACHS 12/18/22 08/13/23 History subcutaneous pen Diabetes multivitamin 1 tab PO DAILY 12/18/22 08/13/23 History nitroglycerin 0.4 mg sublingual 0.4 mg sublingual Q5MINP PRN Chest 12/18/22 08/13/23 History tablet Pain omeprazole 40 mg capsule,delayed 40 mg PO HS 12/18/22 08/13/23 History release acetaminophen 500 mg tablet 500 mg PO AC Pain 12/19/22 08/13/23 History albuterol sulfate 2.5 mg/3 mL 2.5 mg inhalation Q4HP PRN 12/19/22 08/13/23 History (0.083 %) solution for nebulization shortness of air or wheezing gabapentin 300 mg capsule 300 mg PO BID 12/19/22 08/13/23 History hydrocodone 5 mg-acetaminophen 325 1 tab PO Q12HP PRN Moderate Pain 01/12/23 08/13/23 History mg tablet (Scale Score 5-6) clopidogrel 75 mg tablet 75 mg PO DAILY 03/18/23 08/13/23 History amitriptyline 10 mg tablet 10 mg PO HS 04/10/23 08/13/23 History clobetasol 0.05 % shampoo 1 applic topical DAILY Skin 04/19/23 08/13/23 History Condition empagliflozin 10 mg tablet 10 mg PO DAILY 04/19/23 08/13/23 History (Jardiance) insulin glargine 100 unit/mL (3 14 unit SQ HS Diabetes 04/19/23 08/14/23 History mL) subcutaneous pen (Lantus Solostar U-100 Insulin) levothyroxine 50 mcg tablet 50 mcg PO DAILYDM 04/19/23 08/13/23 History miconazole nitrate 2 % topical 1 applic topical BID Skin Condition 04/19/23 08/13/23 History cream ondansetron 4 mg disintegrating 4 mg PO Q6HP PRN Nausea And 04/19/23 08/13/23 History tablet Vomiting bumetanide 2 mg tablet 2 mg PO BID #60 tabs 04/30/23 08/13/23 Rx buspirone 10 mg tablet 10 mg PO TID 07/04/23 08/13/23 History amiodarone 200 mg tablet 200 mg PO DAILY #30 tabs 08/07/23 08/13/23 Rx cetirizine 10 mg tablet 10 mg PO DAILY 08/07/23 08/13/23 History fluticasone fur. 100 mcg-umeclid 1 inh inhalation DAILY 08/13/23 08/14/23 History 62.5 mcg-vilant 25 mcg inhalat.powder (Trelegy Ellipta) paroxetine HCl 40 mg tablet (Paxil) 40 mg PO HS 08/13/23 08/13/23 History rosuvastatin 10 mg tablet 10 mg PO HS 08/13/23 08/13/23 History spironolactone 50 mg tablet 50 mg PO DAILY 08/13/23 08/14/23 History trazodone 100 mg tablet 100 mg PO HS 08/13/23 08/13/23 History polyethylene glycol 3350 17 17 g PO DAILY 08/14/23 08/14/23 History gram/dose oral powder prednisone 20 mg tablet 40 mg (2 x 20 mg) PO DAILY #8 tabs 08/15/23 Rx New Prescriptions to Start Prescriptions: prednisone Florez,Nicolas Allergies Allergy/AdvReac Type Severity Reaction Status Date / Time cephalexin Allergy Verified 08/07/23 11:46 Penicillins Allergy Verified 08/07/23 11:46 Results Laboratory Findings 08/14/23 05:20 08/15/23 06:17 Abnormal lab findings: Abnormal Labs 08/13/23 08/13/23 08/13/23 12:46 13:42 16:56 RBC 5.99 H Hct 47.9 H MCV 80.0 L MCH 24.0 L MCHC 30.0 L RDW 21.8 H Neut % (Auto) Lymph % (Auto) Eos % (Auto) Neut # (Auto) 8.3 H Neutrophils % (Manual) Lymphocytes % (Manual) VBG pCO2 57.4 H VBG pO2 66.2 H VBG HCO3 33.2 H VBG Total CO2 35.0 H VBG O2 Saturation 93.0 H VBG Base Excess 8.1 H Sodium 134 L Chloride 93 L Carbon Dioxide 40 H Anion Gap 4.9 L BUN 30 H Creatinine 1.20 H Estimated GFR 44 L Est GFR ( Amer) 53 L Glucose 117 H POC Glucose 150 H Hemoglobin A1c NT-Pro-B Natriuret Pep 2390 H Globulin 3.5 H 08/13/23 08/14/23 08/14/23 20:37 05:20 10:52 RBC 5.57 H Hct MCV 79.4 L MCH 23.6 L MCHC 29.7 L RDW 21.7 H Neut % (Auto) 87.8 H Lymph % (Auto) 7.7 L Eos % (Auto) 0.0 L Neut # (Auto) Neutrophils % (Manual) 89 H Lymphocytes % (Manual) 7 L VBG pCO2 VBG pO2 VBG HCO3 VBG Total CO2 VBG O2 Saturation VBG Base Excess Sodium Chloride 93 L Carbon Dioxide 40 H Anion Gap BUN 33 H Creatinine 1.30 H Estimated GFR 40 L Est GFR ( Amer) 49 L Glucose 169 H D POC Glucose 157 H 410 H* Hemoglobin A1c 8.9 H NT-Pro-B Natriuret Pep 1120 H Globulin 08/14/23 08/14/23 08/15/23 15:37 20:06 05:02 RBC Hct MCV MCH MCHC RDW Neut % (Auto) Lymph % (Auto) Eos % (Auto) Neut # (Auto) Neutrophils % (Manual) Lymphocytes % (Manual) VBG pCO2 VBG pO2 VBG HCO3 VBG Total CO2 VBG O2 Saturation VBG Base Excess Sodium Chloride Carbon Dioxide Anion Gap BUN Creatinine Estimated GFR Est GFR ( Amer) Glucose POC Glucose 188 H 182 H 226 H Hemoglobin A1c NT-Pro-B Natriuret Pep Globulin 08/15/23 06:17 RBC Hct MCV MCH MCHC RDW Neut % (Auto) Lymph % (Auto) Eos % (Auto) Neut # (Auto) Neutrophils % (Manual) Lymphocytes % (Manual) VBG pCO2 VBG pO2 VBG HCO3 VBG Total CO2 VBG O2 Saturation VBG Base Excess Sodium 134 L Chloride 92 L Carbon Dioxide 37 H Anion Gap BUN 37 H Creatinine 1.10 H Estimated GFR 49 L Est GFR ( Amer) Glucose 224 H POC Glucose Hemoglobin A1c NT-Pro-B Natriuret Pep Globulin Assessment and Plan *Assessment and plan (1) Acute on chronic respiratory failure with hypoxemia: Status: Acute Category: Medical Code(s): J96.21 - Acute and chronic respiratory failure with hypoxia Plan Ms. Sena is a 72-year-old female severe COPD, chronic hypoxic and hypercarbic respiratory failure on 2 L oxygen supplementation at baseline and auto CPAP 6-14 at home, concerning left lower lobe pulmonary nodule on her CT from June 2023 you for a 3-month CT chest without contrast presented to the ER with worsening respiratory distress and pulmonary was called for further evaluation and management. Afebrile. Hemodynamically stable. No evidence of leukocytosis on admission. ABG upon admission showed chronic hypercarbic respiratory failure with a pH of 7.38 and pCO2 57.4. Hypoxia noted Chest x-ray upon admission, increased vascular congestion. No dense consolidative changes. Patient since admission was being managed for acute congestive heart failure receiving diuretics. On examination patient resting in bed comfortably. No acute respiratory distress. Saturating 94% on 3 L. No significant wheezing noted on auscultation. Chest x-ray from today continue improvement in the left lower lobe infiltrates. No dense consolidative changes noted. Currently not receiving any antibiotics Plan: Incentive spirometry and flutter valve No need for antibiotics or steroids from pulmonary standpoint at this point of time. Continue home Trelegy inhaler therapy DuoNebs every 6 hours on as-needed basis Continue noninvasive ventilator therapy for her chronic hypercarbic respiratory failure. # Thank you for involving pulmonary in this patient care. Will continue to follow.
--- NOTE | 2023-08-15 09:41 | XR_ITS ---
FINAL REPORT CLINICAL HISTORY: Hypoxia COMPARISON: 08/13/2023 FINDINGS: A single portable view of the chest was obtained. Cardiomegaly remains present with mild pulmonary vascular congestion. The mediastinum is within normal limits. There are persistent but partially improved opacities in the lung jordan, suggesting improved pneumonia or atelectasis. The bony thorax is intact. IMPRESSION: Cardiomegaly with mild pulmonary vascular congestion. Persistent but partially improved opacities in the lung jordan, suggesting improved pneumonia or atelectasis. Reviewed, Interpreted and Dictated by Delfino Ruth III, MD Transcribed by Paula Schmidt Authenticated and [facility]
[2023-08-15] MEDS: FLUTICASONE/UMECLIDIN/VILANTER 100/62.5/25MCG INHALER 1 PUFF IH (11:07)
[2023-08-15] MEDS: MICONAZOLE 2% TP (11:35)
--- NOTE | 2023-08-15 11:38 | EXP.DC.SUM ---
General Admission date:: 08/13/23 HPI HPI HPI: This is a 72-year-old female that presents to [facility] from her long-term care facility ([facility]) with concerns of shortness of air. Her past medical history significant for atrial fibrillation, COPD, NARCISO, HFpEF. She reports 2 to 3 days of increasing dyspnea not resolving with her current oxygen supply 2?3 L NC. She reports crescendo for dyspnea now occurring at rest. She reports it is hard to lay back secondary to her dyspnea. She has identified some increased lower extremity edema. She denies associated retrosternal chest pain, palpitations, confusion, falls or syncopal episodes. In the ED her proBNP is elevated and her chest imaging is concerning for pulmonary edema. She initially declined NIPPV therapy in the ED but ultimately consented. She reports that it has helped. Hospital Course Hospital Course Hospital Course: Patient presented to hospital with shortness of breath, and received full cardiac, pulmonary, and infection workup during hospitalization. Patient started on IV diuretics during hospitalization, and also placed on fluid restriction. Patient given IV hydrocortisone, nebulization treatments, and supplemental oxygen during hospitalization. By 08/15/2023, patient weaned to home oxygen requirement 2 to 3 L. Patient also seen by cardiology and pulmonology consults for hospitalization. Patient ultimately [facility] to [facility] instructed to follow-up with pulmonary and cardiology consults on outpatient basis. Exam Data for Last 24 hours Vital signs and Labs for Last 24 Hours: Temp Pulse Resp BP Pulse Ox O2 Del Method O2 Flow Rate 97.4 F L 54 L 17 123/59 L 92 L Nasal Cannula 3 08/15/23 08:00 08/15/23 11:10 08/15/23 08:00 08/15/23 08:00 08/15/23 08:00 08/15/23 09:00 08/15/23 09:00 FiO2 35 08/15/23 02:30 Laboratory Results - last 24 hr 08/14/23 15:37: POC Glucose 188 H 08/14/23 20:06: POC Glucose 182 H 08/15/23 05:02: POC Glucose 226 H 08/15/23 06:17: Sodium 134 L, Potassium 4.3, Chloride 92 L, Carbon Dioxide 37 H, Anion Gap 9.3, BUN 37 H, Creatinine 1.10 H, Estimated Creat Clear 71, Estimated GFR 49 L, Est GFR ( Amer) 59 D, Glucose 224 H, Calcium 8.9 I & O for Last 24 hours: Intake & Output 08/12/23 08/13/23 08/14/23 08/15/23 23:59 23:59 23:59 23:59 Intake Total 1458 / 1938 810 / 810 Output Total 750 / 750 2600 / 2600 1450 / 1450 Balance -750 / -750 -1142 / -662 -640 / -640 Weight 99.8 kg 97.522 kg 98.883 kg Microbiology Reports for the Last 24 Hours: Microbiology 08/14/23 09:44 Sputum - Expectorated Sputum Gram Stain - Final 08/13/23 13:42 Blood Blood Culture - Preliminary NO GROWTH AFTER 24 HOURS 08/13/23 13:33 Blood Blood Culture - Preliminary NO GROWTH AFTER 24 HOURS Constitutional Constitutional: no acute distress and cooperative *Routine HEENT Exam Head: Present normocephalic Eye: Present EOMI ENT: Present mucous membranes moist *Routine Neck Exam Neck: Present supple and full ROM *Routine Respiratory Exam Respiratory: Present prolonged expiratory phase and diminished air movement *Routine Cardiovascular Exam Cardiovascular: Present irregularly irregular *Routine Abdominal Exam Abdominal: Present soft and normoactive bowel sounds *Routine Extremities Exam Extremities: Present full ROM and normal capillary refill *Routine Skin Exam Skin: Present intact and dry Results Data Completed and Pending Labs on day of discharge: Labs from last 24 hours 08/15/23 08/15/23 08/14/23 06:17 05:02 20:06 Sodium 134 L Potassium 4.3 Chloride 92 L Carbon Dioxide 37 H Anion Gap 9.3 BUN 37 H Creatinine 1.10 H Estimated Creat Clear 71 Estimated GFR 49 L Est GFR ( Amer) 59 D Glucose 224 H POC Glucose 226 H 182 H Calcium 8.9 08/14/23 15:37 Sodium Potassium Chloride Carbon Dioxide Anion Gap BUN Creatinine Estimated Creat Clear Estimated GFR Est GFR ( Amer) Glucose POC Glucose 188 H Calcium Preliminary micro results at discharge 08/13/23 13:42 Blood Culture - Preliminary Blood NO GROWTH AFTER 24 HOURS 08/13/23 13:33 Blood Culture - Preliminary Blood NO GROWTH AFTER 24 HOURS Imaging and Cardiology TESTING: Status: image reviewed by me Additional comments: Ordering Physician: Isha Paredes MD Date of Service: 08/15/23 Procedure(s): XR chest portable Accession Number(s): [id number] cc: Delfino Ruth MD; Provider,Toney HINKLE~ FINAL REPORT CLINICAL HISTORY: Hypoxia COMPARISON: 08/13/2023 FINDINGS: A single portable view of the chest was obtained. Cardiomegaly remains present with mild pulmonary vascular congestion. The mediastinum is within normal limits. There are persistent but partially improved opacities in the lung jordan, suggesting improved pneumonia or atelectasis. The bony thorax is intact. IMPRESSION: Cardiomegaly with mild pulmonary vascular congestion. Persistent but partially improved opacities in the lung jordan, suggesting improved pneumonia or atelectasis. Reviewed, Interpreted and Dictated by Delfino Ruth III, MD Transcribed by Paula Schmidt Ordering Physician: Kyrie Lara MD Date of Service: 08/13/23 Procedure(s): CT head/brain wo con Accession Number(s): [id number] cc: Delfino Ruth MD; Provider,Toney HINKLE; Kyrie Lara MD~ FINAL REPORT CLINICAL HISTORY: fall, AMS COMPARISON: 04/19/2023 FINDINGS: Axial images of the head were obtained without contrast. Coronal reformatted images were also obtained. This study was performed with techniques to keep radiation doses as low as reasonably achievable (ALARA). Individualized dose reduction techniques using automated exposure control or adjustment of mA and/or kV according to the patient's size were employed. There is generalized age-appropriate atrophy. Periventricular low-attenuation areas are seen consistent with mild chronic ischemic changes. There is no evidence of intracranial hemorrhage or mass. There are multiple chronic lacunar infarcts. There is no evidence of acute infarct. There is no evidence of shift of the midline structures. There is a retention cyst or polyp in the left maxillary sinus. No skull abnormality is seen on the bone window images. IMPRESSION: Atrophy and mild periventricular chronic ischemic changes. No acute intracranial abnormality identified. Ordering Physician: Carisa Gonzalez APRN Date of Service: 08/07/23 Procedure(s): XR chest 2V Accession Number(s): [id number] cc: Kristian Bynum MD; Delfino Ruth MD~ FINAL REPORT CLINICAL HISTORY: dyspnea/prod cough COMPARISON: 04/19/2023 FINDINGS: Two views of the chest were obtained. Cardiomegaly and changes of chronic obstructive pulmonary disease are present. The mediastinum is normal. Mild atelectasis versus scarring is present in the lung bases. There is no pneumothorax. The bony thorax is intact. IMPRESSION: Cardiomegaly and changes of chronic obstructive pulmonary disease. DS: Diagnosis Discharge Diagnosis (1) Acute on chronic heart failure with preserved ejection fraction (HFpEF): Status: Acute Code(s): I50.33 - Acute on chronic diastolic (congestive) heart failure (2) Acute on chronic respiratory failure with hypoxemia: Status: Acute Code(s): J96.21 - Acute and chronic respiratory failure with hypoxia (3) CHF exacerbation: Status: Acute Code(s): I50.9 - Heart failure, unspecified (4) NARCISO (obstructive sleep apnea): Status: Chronic Code(s): G47.33 - Obstructive sleep apnea (adult) (pediatric) Problem details: Active patient at [facility] (5) COPD mixed type: Status: Chronic Code(s): J44.9 - Chronic obstructive pulmonary disease, unspecified (6) Atrial fibrillation: Status: Acute Code(s): I48.91 - Unspecified atrial fibrillation Qualifiers: Atrial fibrillation type: unspecified chronic Qualified Code(s): I48.20 - Chronic atrial fibrillation, unspecified (7) Diabetes mellitus, type 2: Status: Acute Code(s): E11.9 - Type 2 diabetes mellitus without complications Qualifiers: Diabetes mellitus complication status: with other specified complication 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 use: with termite control technician use Qualified Code(s): E11.69 - Type 2 diabetes mellitus with other specified complication; Z79.4 - 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 of insulin (8) HLD (hyperlipidemia): Status: Acute Code(s): E78.5 - Hyperlipidemia, unspecified Qualifiers: Hyperlipidemia type: mixed hyperlipidemia Qualified Code(s): E78.2 - Mixed hyperlipidemia (9) HTN (hypertension): Status: Acute Code(s): I10 - Essential (primary) hypertension Qualifiers: Hypertension type: primary hypertension Qualified Code(s): I10 - Essential (primary) hypertension (10) Pulmonary hypertension: Status: Acute Code(s): I27.20 - Pulmonary hypertension, unspecified Meds Home Medications and Allergies Home Medications Medication Instructions Recorded Confirmed Type ergocalciferol (vitamin D2) 1,250 1,250 mcg PO .EVERY OTHER WEEK 08/12/20 08/14/23 History mcg (50,000 unit) capsule Supplement albuterol sulfate 90 mcg/actuation 2 puff inhalation Q4HP PRN 12/18/22 08/13/23 History aerosol inhaler Shortness Of Breath Or Wheezing apixaban 5 mg tablet (Eliquis) 5 mg PO BID 12/18/22 08/13/23 History docusate sodium 100 mg tablet 100 mg PO BID 12/18/22 08/13/23 History ferrous sulfate 324 mg (65 mg 324 mg PO DAILY 12/18/22 08/13/23 History iron) tablet,delayed release icosapent ethyl 1 gram capsule 1 g PO BID 12/18/22 08/13/23 History (Vascepa) insulin lispro 100 unit/mL 0 sliding scale dose SQ ACHS 12/18/22 08/13/23 History subcutaneous pen Diabetes multivitamin 1 tab PO DAILY 12/18/22 08/13/23 History nitroglycerin 0.4 mg sublingual 0.4 mg sublingual Q5MINP PRN Chest 12/18/22 08/13/23 History tablet Pain omeprazole 40 mg capsule,delayed 40 mg PO HS 12/18/22 08/13/23 History release acetaminophen 500 mg tablet 500 mg PO AC Pain 12/19/22 08/13/23 History albuterol sulfate 2.5 mg/3 mL 2.5 mg inhalation Q4HP PRN 12/19/22 08/13/23 History (0.083 %) solution for nebulization shortness of air or wheezing gabapentin 300 mg capsule 300 mg PO BID 12/19/22 08/13/23 History hydrocodone 5 mg-acetaminophen 325 1 tab PO Q12HP PRN Moderate Pain 01/12/23 08/13/23 History mg tablet (Scale Score 5-6) clopidogrel 75 mg tablet 75 mg PO DAILY 03/18/23 08/13/23 History amitriptyline 10 mg tablet 10 mg PO HS 04/10/23 08/13/23 History clobetasol 0.05 % shampoo 1 applic topical DAILY Skin 04/19/23 08/13/23 History Condition empagliflozin 10 mg tablet 10 mg PO DAILY 04/19/23 08/13/23 History (Jardiance) insulin glargine 100 unit/mL (3 14 unit SQ HS Diabetes 04/19/23 08/14/23 History mL) subcutaneous pen (Lantus Solostar U-100 Insulin) levothyroxine 50 mcg tablet 50 mcg PO DAILYDM 04/19/23 08/13/23 History miconazole nitrate 2 % topical 1 applic topical BID Skin Condition 04/19/23 08/13/23 History cream ondansetron 4 mg disintegrating 4 mg PO Q6HP PRN Nausea And 04/19/23 08/13/23 History tablet Vomiting bumetanide 2 mg tablet 2 mg PO BID #60 tabs 04/30/23 08/13/23 Rx buspirone 10 mg tablet 10 mg PO TID 07/04/23 08/13/23 History amiodarone 200 mg tablet 200 mg PO DAILY #30 tabs 08/07/23 08/13/23 Rx cetirizine 10 mg tablet 10 mg PO DAILY 08/07/23 08/13/23 History fluticasone fur. 100 mcg-umeclid 1 inh inhalation DAILY 08/13/23 08/14/23 History 62.5 mcg-vilant 25 mcg inhalat.powder (Trelegy Ellipta) paroxetine HCl 40 mg tablet (Paxil) 40 mg PO HS 08/13/23 08/13/23 History rosuvastatin 10 mg tablet 10 mg PO HS 08/13/23 08/13/23 History spironolactone 50 mg tablet 50 mg PO DAILY 08/13/23 08/14/23 History trazodone 100 mg tablet 100 mg PO HS 08/13/23 08/13/23 History polyethylene glycol 3350 17 17 g PO DAILY 08/14/23 08/14/23 History gram/dose oral powder prednisone 20 mg tablet 40 mg (2 x 20 mg) PO DAILY #8 tabs 08/15/23 Rx New Prescriptions to Start Prescriptions: Nicolas Lundy Allergy/AdvReac Type Severity Reaction Status Date / Time cephalexin Allergy Verified 08/07/23 11:46 Penicillins Allergy Verified 08/07/23 11:46 Discharge Plan Disposition Patient Disposition: Xfer SNF Condition: Fair Discharge Order Discharge Orders: Discharge Order (Routine); Ordered 08/15/23 Ordered By: Nicolas Florez Follow up Plan Follow up with: ProviderToney MD [Primary Care Provider] - 1 week Isha Paredes MD [Physician] - 1 month Ziggy Hitchcock MD [Staff Physician] - 1 month Prescriptions/Medication Reconciliation: New prednisone 20 mg tablet 40 mg PO DAILY Qty: 8 0RF Rx Instructions: next does 08/16/23 Continued bumetanide 2 mg tablet 2 mg PO BID Qty: 60 3RF ergocalciferol (vitamin D2) 1,250 mcg (50,000 unit) capsule 1,250 mcg PO .EVERY OTHER WEEK Patient Comments: TAKE 1 CAPSULE BY MOUTH EVERY TWO WEEKS (TWICE A MONTH) amitriptyline 10 mg tablet 10 mg PO HS cetirizine 10 mg tablet 10 mg PO DAILY amiodarone 200 mg tablet 200 mg PO DAILY Qty: 30 4RF albuterol sulfate 90 mcg/actuation HFA aerosol inhaler 2 puff INHALATION Q4HP PRN (Reason: Shortness Of Breath Or Wheezing) multivitamin Tablet 1 tab PO DAILY omeprazole 40 mg Capsule,Delayed Release(Dr/Ec) 40 mg PO HS icosapent ethyl [Vascepa] 1 gram Capsule 1 g PO BID docusate sodium 100 mg Tablet 100 mg PO BID ferrous sulfate 324 mg (65 mg iron) Tablet,Delayed Release (Dr/Ec) 324 mg PO DAILY Eliquis 5 mg Tablet 5 mg PO BID nitroglycerin 0.4 mg Tablet, Sublingual 0.4 mg SUBLINGUAL Q5MINP PRN (Reason: Chest Pain) Rx Instructions: do not exceed 3 doses per episode insulin lispro 100 unit/mL Insulin Pen 0 sliding scale dose SQ ACHS Rx Instructions: 101-150 3 UNITS 151-200 4 UNITS 201-250 6 UNITS 251-300 9 UNITS 301-350 12 UNITS 351-400 15 UNITS albuterol sulfate 2.5 mg /3 mL (0.083 %) Solution For Nebulization 2.5 mg inhalation Q4HP PRN (Reason: shortness of air or wheezing) acetaminophen 500 mg Tablet 500 mg PO AC gabapentin 300 mg Capsule 300 mg PO BID buspirone 10 mg tablet 10 mg PO TID hydrocodone-acetaminophen 5-325 mg tablet 1 tab PO Q12HP PRN (Reason: Moderate Pain (Scale Score 5-6)) paroxetine HCl [Paxil] 40 mg Tablet 40 mg PO HS trazodone 100 mg tablet 100 mg PO HS spironolactone 50 mg tablet 50 mg PO DAILY rosuvastatin 10 mg tablet 10 mg PO HS Trelegy Ellipta 100-62.5-25 mcg blister with device 1 inh INHALATION DAILY polyethylene glycol 3350 17 gram/dose powder 17 g PO DAILY clopidogrel 75 mg Tablet 75 mg PO DAILY miconazole nitrate 2 % Cream 1 applic TOPICAL BID clobetasol 0.05 % Shampoo 1 applic TOPICAL DAILY levothyroxine 50 mcg Tablet 50 mcg PO DAILYDM ondansetron 4 mg Tablet,Disintegrating 4 mg PO Q6HP PRN (Reason: Nausea And Vomiting) insulin glargine [Lantus Solostar U-100 Insulin] 100 unit/mL (3 mL) Insulin Pen 14 unit SQ HS Jardiance 10 mg tablet 10 mg PO DAILY Problem Reconciliation Problems Reviewed?: Yes Patient Discharge Instructions ACTIVITY: Continue current activity DIET: continue same diet Patient Instructions: DI for Heart Failure, DI for Pneumonia -- Adult, DI for Respiratory Failure Print Language: Polish Providers Primary Care Provider: Provider,Referral Admit Provider: Danie Penn Attending Provider: Danie Penn
[2023-08-15 11:51] LABS: POC Glucose,Bedside 278 (70-110)
--- NOTE | 2023-08-15 14:10 | P.CONCA_ITS ---
History of Present Illness History of Present Illness Consult date: 08/15/23 Requesting physician: Nicolas Florez Chief complaint: SOA History of present illness: 72-year-old white female established patient of our office with history of CAD, chronic A-fib on Eliquis, hypertension, diabetes, COPD on 3 L/min, grade 3 diastolic dysfunction with HFpEF. She is a senior living patient. She developed altered mental status weakness and worsening shortness of breath associated with orthopnea and was admitted to the hospital with hypercarbia and mild CHF. Her proBNP was 2000 and she had pulmonary edema on chest x-ray. She was admitted overnight and had gentle diuresis. COPD meds adjusted. She feels she is back to baseline. EKG shows sinus bradycardia 50 bpm. [facility] Disclaimer: The information contained in this section may have been updated after the patient was seen, as this information can be updated by other users. Medical History Nodule of left lung Heart attack Encounter for screening for malignant neoplasm of lung COPD mixed type History of smoking 30 or more pack years Dyspnea Bilateral hearing loss due to cerumen impaction Encounter for removal of nasal packing CAD in [place] artery Cardiomyopathy Non-STEMI (non-ST elevated myocardial infarction) Right ventricular dilation Coronary artery disease HFrEF (heart failure with reduced ejection fraction) Pneumonia Diabetes mellitus, type 2 Iron deficiency anemia Pulmonary hypertension Osteoporosis Major depressive disorder Heart failure Depression Lymphedema Insomnia Class 2 obesity due to excess calories with body mass index (BMI) of 39.0 to 39.9 in adult Fibromyalgia Congestive heart failure Atrial fibrillation Anxiety HTN (hypertension) HLD (hyperlipidemia) COPD (chronic obstructive pulmonary disease) BMI 30.0-30.9,adult Osteoarthritis Callus of foot Paresthesia of both lower extremities Onychodystrophy Onychomycosis Diabetic foot Surgical History History of coronary artery stent placement History of bladder surgery H/O: hysterectomy H/O hernia repair Family History Other Diabetes Hyperlipidemia Hypertension No significant family history Social History Smoking Status: Former smoker tobacco type: cigarettes packs per day: 2 alcohol intake: never substance use type: denies use current occupational status: retired and disabled Travel in the last 8 weeks: None housing: senior living lives independently: No senior living: Yes caffeine: Yes Review of Systems Constitutional Constitutional: Reports fatigue and Reports weakness Eyes Eyes: Denies loss of vision ENT Ears, Nose, Mouth, and Throat: Denies hearing loss and Denies vertigo *Cardiovascular Cardiovascular: Denies chest pain, Reports dyspnea and Denies syncope *Respiratory Respiratory: Denies cough, Reports dyspnea and Reports wheezing *Gastrointestinal Gastrointestinal: Denies change in stool character, Denies nausea and Denies vomiting *Musculoskeletal Musculoskeletal: Denies muscle weakness Integumentary/Breasts Skin/Breast: Denies changing lesions *Neurologic Neurologic: Denies loss of vision, Denies syncope, Denies vertigo and Reports weakness Endocrine Endocrine: Reports fatigue Allergic/Immunologic Allergic/Immunologic: Reports wheezing Exam Data for Last 24 hours Vital signs and Labs for Last 24 Hours: Temp Pulse Resp BP Pulse Ox O2 Del Method O2 Flow Rate 98.1 F 51 L 18 118/65 94 L Nasal Cannula 3 08/15/23 11:49 08/15/23 11:49 08/15/23 11:49 08/15/23 11:49 08/15/23 11:49 08/15/23 11:49 08/15/23 11:49 FiO2 35 08/15/23 02:30 Laboratory Results - last 24 hr 08/14/23 15:37: POC Glucose 188 H 08/14/23 20:06: POC Glucose 182 H 08/15/23 05:02: POC Glucose 226 H 08/15/23 06:17: Sodium 134 L, Potassium 4.3, Chloride 92 L, Carbon Dioxide 37 H, Anion Gap 9.3, BUN 37 H, Creatinine 1.10 H, Estimated Creat Clear 71, Estimated GFR 49 L, Est GFR ( Amer) 59 D, Glucose 224 H, Calcium 8.9 08/15/23 11:25: POC Glucose 278 H I & O for Last 24 hours: Intake & Output 08/12/23 08/13/23 08/14/23 08/15/23 23:59 23:59 23:59 23:59 Intake Total 1458 / 1938 810 / 810 Output Total 750 / 750 2600 / 2600 1850 / 1850 Balance -750 / -750 -1142 / -662 -1040 / -1040 Weight 220 lb 0.341 oz 215 lb 218 lb Microbiology Reports for the Last 24 Hours: Microbiology 08/13/23 13:42 Blood Blood Culture - Preliminary NO GROWTH AFTER 48 HOURS 08/13/23 13:33 Blood Blood Culture - Preliminary NO GROWTH AFTER 48 HOURS 08/14/23 09:44 Sputum - Expectorated Sputum Gram Stain - Final Meds Home Medications and Allergies Home Medications Medication Instructions Recorded Confirmed Type ergocalciferol (vitamin D2) 1,250 1,250 mcg PO .EVERY OTHER WEEK 08/12/20 08/14/23 History mcg (50,000 unit) capsule Supplement albuterol sulfate 90 mcg/actuation 2 puff inhalation Q4HP PRN 12/18/22 08/13/23 History aerosol inhaler Shortness Of Breath Or Wheezing apixaban 5 mg tablet (Eliquis) 5 mg PO BID 12/18/22 08/13/23 History docusate sodium 100 mg tablet 100 mg PO BID 12/18/22 08/13/23 History ferrous sulfate 324 mg (65 mg 324 mg PO DAILY 12/18/22 08/13/23 History iron) tablet,delayed release icosapent ethyl 1 gram capsule 1 g PO BID 12/18/22 08/13/23 History (Vascepa) insulin lispro 100 unit/mL 0 sliding scale dose SQ ACHS 12/18/22 08/13/23 History subcutaneous pen Diabetes multivitamin 1 tab PO DAILY 12/18/22 08/13/23 History nitroglycerin 0.4 mg sublingual 0.4 mg sublingual Q5MINP PRN Chest 12/18/22 08/13/23 History tablet Pain omeprazole 40 mg capsule,delayed 40 mg PO HS 12/18/22 08/13/23 History release acetaminophen 500 mg tablet 500 mg PO AC Pain 12/19/22 08/13/23 History albuterol sulfate 2.5 mg/3 mL 2.5 mg inhalation Q4HP PRN 12/19/22 08/13/23 History (0.083 %) solution for nebulization shortness of air or wheezing gabapentin 300 mg capsule 300 mg PO BID 12/19/22 08/13/23 History hydrocodone 5 mg-acetaminophen 325 1 tab PO Q12HP PRN Moderate Pain 01/12/23 08/13/23 History mg tablet (Scale Score 5-6) clopidogrel 75 mg tablet 75 mg PO DAILY 03/18/23 08/13/23 History amitriptyline 10 mg tablet 10 mg PO HS 04/10/23 08/13/23 History clobetasol 0.05 % shampoo 1 applic topical DAILY Skin 04/19/23 08/13/23 History Condition empagliflozin 10 mg tablet 10 mg PO DAILY 04/19/23 08/13/23 History (Jardiance) insulin glargine 100 unit/mL (3 14 unit SQ HS Diabetes 04/19/23 08/14/23 History mL) subcutaneous pen (Lantus Solostar U-100 Insulin) levothyroxine 50 mcg tablet 50 mcg PO DAILYDM 04/19/23 08/13/23 History miconazole nitrate 2 % topical 1 applic topical BID Skin Condition 04/19/23 08/13/23 History cream ondansetron 4 mg disintegrating 4 mg PO Q6HP PRN Nausea And 04/19/23 08/13/23 History tablet Vomiting bumetanide 2 mg tablet 2 mg PO BID #60 tabs 04/30/23 08/13/23 Rx buspirone 10 mg tablet 10 mg PO TID 07/04/23 08/13/23 History amiodarone 200 mg tablet 200 mg PO DAILY #30 tabs 08/07/23 08/13/23 Rx cetirizine 10 mg tablet 10 mg PO DAILY 08/07/23 08/13/23 History fluticasone fur. 100 mcg-umeclid 1 inh inhalation DAILY 08/13/23 08/14/23 History 62.5 mcg-vilant 25 mcg inhalat.powder (Trelegy Ellipta) paroxetine HCl 40 mg tablet (Paxil) 40 mg PO HS 08/13/23 08/13/23 History rosuvastatin 10 mg tablet 10 mg PO HS 08/13/23 08/13/23 History spironolactone 50 mg tablet 50 mg PO DAILY 08/13/23 08/14/23 History trazodone 100 mg tablet 100 mg PO HS 08/13/23 08/13/23 History polyethylene glycol 3350 17 17 g PO DAILY 08/14/23 08/14/23 History gram/dose oral powder prednisone 20 mg tablet 40 mg (2 x 20 mg) PO DAILY #8 tabs 08/15/23 Rx New Prescriptions to Start Prescriptions: prednisone Florez,[place] Allergies Allergy/AdvReac Type Severity Reaction Status Date / Time cephalexin Allergy Verified 08/07/23 11:46 Penicillins Allergy Verified 08/07/23 11:46 Assessment and Plan *Assessment and plan (1) Acute on chronic heart failure with preserved ejection fraction (HFpEF): Status: Acute Category: Medical Code(s): I50.33 - Acute on chronic diastolic (congestive) heart failure (2) Acute on chronic respiratory failure with hypoxemia: Status: Acute Category: Medical Code(s): J96.21 - Acute and chronic respiratory failure with hypoxia (3) NARCISO (obstructive sleep apnea): Problem Comment: Active patient at [facility] Status: Chronic Category: Medical Code(s): G47.33 - Obstructive sleep apnea (adult) (pediatric) (4) COPD mixed type: Status: Chronic Category: Medical Code(s): J44.9 - Chronic obstructive pulmonary disease, unspecified (5) Atrial fibrillation: Status: Acute Qualifiers: Atrial fibrillation type: unspecified chronic Qualified Code(s): I48.20 - Chronic atrial fibrillation, unspecified Category: Medical Code(s): I48.91 - Unspecified atrial fibrillation (6) Diabetes mellitus, type 2: Status: Acute Qualifiers: 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 Diabetes mellitus complication status: with other specified complication Qualified Code(s): E11.69 - Type 2 diabetes mellitus with other specified complication; 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 Category: Medical Code(s): E11.9 - Type 2 diabetes mellitus without complications (7) HLD (hyperlipidemia): Status: Acute Qualifiers: Hyperlipidemia type: mixed hyperlipidemia Qualified Code(s): E78.2 - Mixed hyperlipidemia Category: Medical Code(s): E78.5 - Hyperlipidemia, unspecified (8) HTN (hypertension): Status: Acute Qualifiers: Hypertension type: primary hypertension Qualified Code(s): I10 - Essential (primary) hypertension Category: Medical Code(s): I10 - Essential (primary) hypertension (9) Pulmonary hypertension: Status: Acute Category: Medical Code(s): I27.20 - Pulmonary hypertension, unspecified Plan Acute on chronic HFpEF -Known grade 3 diastolic dysfunction, presented with BRANDON, orthopnea, proBNP 1999, pulmonary edema on chest x-ray -Diuresed back to baseline -Presumably provoked by end-stage COPD, questionable medication compliance -Continue home dose Jardiance and Aldactone at discharge. Utilize loop diuretics as needed Acute on chronic hypoxic respiratory failure with hypercarbia -Plans per pulmonology CAD status post [place] 03/2023 - CCS = 0 - EKG - SB 50, no acute ischemia - Cont Plavix, statin, BB PAF - SR here - cont Amio and Eliquis CV stable for DC home. She needs office f/u with us in 2 weeks.
== END 2023-08-15 14:30 | DRG 291 ==
LOC: ER 14:29 → 2ND 15:40
PROVIDERS: Admitting Provider Family Medicine; Emergency Provider Emergency Medicine; Visit Provider Family Medicine
DX: I11.0 Hypertensive heart disease with heart failure (principal); I50.33 Acute on chronic diastolic (congestive) heart failure; J18.9 Pneumonia, unspecified organism; J96.21 Acute and chronic respiratory failure with hypoxia; J44.0 Chronic obstructive pulmonary disease with (acute) lower respiratory infection; I48.20 Chronic atrial fibrillation, unspecified; N17.9 Acute kidney failure, unspecified; Z79.4 Long term (current) use of insulin; G47.33 Obstructive sleep apnea (adult) (pediatric); I27.20 Pulmonary hypertension, unspecified; Z79.01 Long term (current) use of anticoagulants; I25.10 Atherosclerotic heart disease of native coronary artery without angina pectoris; E11.42 Type 2 diabetes mellitus with diabetic polyneuropathy; E03.9 Hypothyroidism, unspecified; E78.5 Hyperlipidemia, unspecified; Z95.5 Presence of coronary angioplasty implant and graft; Z87.891 Personal history of nicotine dependence
CPT/HCPCS: 36415; 70450; 71045; 80048; 80053; 81001; 82803; 82962; 83036; 83735; 83880; 84145; 84484; 85007; 85025; 87040; 87070; 87205; 93005; 94640; 94660; 94761; 99291; J0696; J1644; J1940; J2270; J2405; J2919; J7620

== ENCOUNTER 2023-08-29 13:56 | Outpatient (CLI) | payer MEDICARE, MEDICAID, SELFPAY ==
[2023-08-29 14:41] LABS: Basophils # 0.1 K/mm3 (0-0.2); Basophils % 0.9 % (0.1-2.0); Eosinophils # 0.1 K/mm3 (0.0-0.4); Eosinophils % 1.4 % (0.1-12.0); Hematocrit 49.4 % (37.0-47.0); Hemoglobin 14.5 g/dL (12.2-16.2); Lymphocytes # 1.4 K/mm3 (0.7-4.5); Lymphocytes % 16.9 % (10-50); Mean Corpuscular HGB Conc 29.3 g/dL (31.8-35.4); Mean Corpuscular Hemoglobin 24.4 pg (27.0-31.2); Mean Corpuscular Volume 83.1 fl (81-99); Mean Platelet Volume 9.1 fl (7.4-10.4); Monocytes # 0.7 K/mm3 (0.1-1.0); Neutrophils % 72.7 % (37.0-80.0); Platelet Count 178 K/mm3 (142-424); Red Blood Count 5.95 M/mm3 (4.20-5.40); Red Cell Distribution Width 22.2 % (11.5-17.5); White Blood Count 8.3 K/mm3 (4.8-10.8)
[2023-08-29 14:54] LABS: Alanine Aminotransferase 25 U/L (12-78); Albumin Level 3.5 g/dl (3.5-5.0); Alkaline Phosphatase 57 U/L (38-126); Aspartate Amino Transferase 31 U/L (14-36); Bilirubin,Indirect 0.6 mg/dL (0.0-0.9); Bilirubin,Total 0.6 mg/dl (0.2-1.3); Bilirubin,Unconjugated 0.7 mg/dL (0.0-1.1); Blood Urea Nitrogen 27 mg/dl (7-17); Calcium 9.1 mg/dl (8.4-10.2); Chloride 91 mmol/L (98-107); Chol/HDL Ratio 2.2 (1-3.5); Cholesterol 150 mg/dl (140-200); Estimated Glomerular Filt Rate 54 ml/min (>60); GFR (African American) 66 ML/MIN (>60); Glucose 192 mg/dl (74-100); HDL Cholesterol 69 mg/dl (40-60); Magnesium 1.9 mg/dl (1.6-2.3); Potassium 3.8 mmoL/L (3.5-5.1); Sodium 135 mmol/L (136-145); Total Protein,Serum 6.1 g/dl (6.3-8.2); Triglycerides 110 mg/dl (30-150); VLDL Cholesterol 22 mg/dL (0-40)
[2023-08-29 15:00] LABS: Anion Gap 8.8 mEq/L (5-15); Carbon Dioxide 39 mmol/L (22.0-30.0)
[2023-08-29 15:04] LABS: Direct LDL Cholesterol 53.98 mg/dL (100-129)
[2023-08-29 15:24] LABS: Thyroid Stimulating Hormone 7.23 uIU/mL (0.465-4.68)
[2023-08-29 17:16] LABS: Free T4 (Free Thyroxine) 1.22 ng/dl (0.78-2.19)
== END 2023-08-29 23:59 | disposition home or self-care (01) ==
LOC: LAB 13:57
PROVIDERS: PCP Internal Medicine; Visit Provider Nurse Practitioner
DX: I25.118 Atherosclerotic heart disease of native coronary artery with other forms of angina pectoris (principal); I27.20 Pulmonary hypertension, unspecified; I10 Essential (primary) hypertension; E78.2 Mixed hyperlipidemia; I48.20 Chronic atrial fibrillation, unspecified; E11.69 Type 2 diabetes mellitus with other specified complication; Z79.4 Long term (current) use of insulin; I50.33 Acute on chronic diastolic (congestive) heart failure
CPT/HCPCS: 80048; 80061; 80076; 83735; 84439; 84443; 85025

== ENCOUNTER 2023-09-01 12:05 | Inpatient (IN) | payer MEDICARE, MEDICAID, SELFPAY ==
[2023-09-01] VITALS (16 sets, daily range): BP systolic 80–128; BP diastolic 41–66; PULSE 30–44; RESP 10–21; TEMP 36.6–36.9; O2SAT 94–99; BMI 38.2
--- NOTE | 2023-09-01 12:10 | ECG_ITS ---
APPROVED REPORT Exam: Resting ECG HR:37 bpm ECG Measurements Heart Rate 37 AXES QRSd 122 QRS 91 QT 322 T 180 QTc 237 Conclusion Sinus bradycardia Right axis deviation Electronically signed by : ALEJANDRINA SAM, 09/01/2023 15:21:53
--- NOTE | 2023-09-01 12:14 | XR_ITS ---
PROCEDURE INFORMATION: Exam: XR Chest Exam date and time: 09/01/2023 12:22 PM Age: 72 years old Clinical indication: Cough; Additional info: Cough, bradycardia, lethargy TECHNIQUE: Imaging protocol: Radiologic exam of the chest. Views: 1 view. COMPARISON: CR XR CHEST PORTABLE 08/15/2023 9:48 AM FINDINGS: Lungs: Mild left basilar scarring redemonstrated. Lungs are otherwise clear. Pleural spaces: Unremarkable. No pleural effusion. No pneumothorax. Heart/Mediastinum: Heart size is enlarged and stable. Bones/joints: Unremarkable. IMPRESSION: No acute abnormality.
[2023-09-01] MEDS: CALCIUM GLUC IN NACL, ISO-OSM 2 GM/100 ML BAG IV (12:22)
--- NOTE | 2023-09-01 12:23 | ED_ITS ---
Discharge Plan Disposition Patient Disposition: Admitted Chief Complaint: Arrhythmia/Palpitations Clinical Impressions Clinical Impression: Acute hypercapnic respiratory failure, CO2 narcosis, Accidental overdose Discharge ED Provider: Kyrie Lara General Adult HPI General Chief complaint: Arrhythmia/Palpitations Stated complaint: bradycardia Time Seen by Provider: 09/01/23 12:13 Mode of Arrival: EMS Source of Information: Patient and EMS Limitations: No Limitations Description of Symptoms (Recalled from ER Triage Doc. by RN): low heart rate and bp. lethargy History of Present Illness HPI narrative: Please note that above description of symptoms, in this electronic medical record under categorization of recalled from ER triage doctor by RN are reflective of an initial nursing assessment, however, is not reflective of my full history and physical exam that was personally taken and clarified. Consequentially, this preceding description of symptoms, which may include the patient's categorized chief complaint in the EMR, do not reflect my personal clinical impression, and the ultimate description of history of present illness and patient stated complaints should be deferred to this section of the note. Unless stated otherwise or congruent with this section of the note, additional signs, symptoms, or incongruence should be interpreted as inaccurate with my clinical impression. Related Data Home Medications ?Medication ?Instructions ?Recorded ?Confirmed ergocalciferol (vitamin D2) 1,250 1,250 mcg PO .EVERY OTHER WEEK 08/12/20 08/29/23 mcg (50,000 unit) capsule Supplement albuterol sulfate 90 mcg/actuation 2 puff inhalation Q4HP PRN 12/18/22 08/29/23 aerosol inhaler Shortness Of Breath Or Wheezing apixaban 5 mg tablet (Eliquis) 5 mg PO BID 12/18/22 08/29/23 docusate sodium 100 mg tablet 100 mg PO BID 12/18/22 08/29/23 ferrous sulfate 324 mg (65 mg 324 mg PO DAILY 12/18/22 08/29/23 iron) tablet,delayed release icosapent ethyl 1 gram capsule 1 g PO BID 12/18/22 08/29/23 (Vascepa) insulin lispro 100 unit/mL 0 sliding scale dose SQ ACHS 12/18/22 08/29/23 subcutaneous pen Diabetes multivitamin 1 tab PO DAILY 12/18/22 08/29/23 nitroglycerin 0.4 mg sublingual 0.4 mg sublingual Q5MINP PRN Chest 12/18/22 08/29/23 tablet Pain omeprazole 40 mg capsule,delayed 40 mg PO HS 12/18/22 08/29/23 release acetaminophen 500 mg tablet 500 mg PO AC Pain 12/19/22 08/29/23 albuterol sulfate 2.5 mg/3 mL 2.5 mg inhalation Q4HP PRN 12/19/22 08/29/23 (0.083 %) solution for nebulization shortness of air or wheezing gabapentin 300 mg capsule 300 mg PO BID 12/19/22 08/29/23 hydrocodone 5 mg-acetaminophen 325 1 tab PO Q12HP PRN Moderate Pain 01/12/23 08/29/23 mg tablet (Scale Score 5-6) clopidogrel 75 mg tablet 75 mg PO DAILY 03/18/23 08/29/23 amitriptyline 10 mg tablet 10 mg PO HS 04/10/23 08/29/23 clobetasol 0.05 % shampoo 1 applic topical DAILY Skin 04/19/23 08/29/23 Condition empagliflozin 10 mg tablet 10 mg PO DAILY 04/19/23 08/29/23 (Jardiance) insulin glargine 100 unit/mL (3 14 unit SQ HS Diabetes 04/19/23 08/29/23 mL) subcutaneous pen (Lantus Solostar U-100 Insulin) levothyroxine 50 mcg tablet 50 mcg PO DAILYDM 04/19/23 08/29/23 miconazole nitrate 2 % topical 1 applic topical BID Skin Condition 04/19/23 08/29/23 cream ondansetron 4 mg disintegrating 4 mg PO Q6HP PRN Nausea And 04/19/23 08/29/23 tablet Vomiting buspirone 10 mg tablet 10 mg PO TID 07/04/23 08/29/23 cetirizine 10 mg tablet 10 mg PO DAILY 08/07/23 08/29/23 fluticasone fur. 100 mcg-umeclid 1 inh inhalation DAILY 08/13/23 08/29/23 62.5 mcg-vilant 25 mcg inhalat.powder (Trelegy Ellipta) paroxetine HCl 40 mg tablet (Paxil) 40 mg PO HS 08/13/23 08/29/23 rosuvastatin 10 mg tablet 10 mg PO HS 08/13/23 08/29/23 spironolactone 50 mg tablet 50 mg PO DAILY 08/13/23 08/29/23 trazodone 100 mg tablet 100 mg PO HS 08/13/23 08/29/23 polyethylene glycol 3350 17 17 g PO DAILY 08/14/23 08/29/23 gram/dose oral powder fluconazole 150 mg tablet 150 mg PO 08/29/23 08/29/23 insulin glargine-yfgn 100 unit/mL 100 unit SQ 08/29/23 08/29/23 (3 mL) subcutaneous pen trazodone 150 mg tablet 150 mg PO HS 08/29/23 08/29/23 Previous Rx's ?Medication ?Instructions ?Recorded bumetanide 2 mg tablet 2 mg PO BID #60 tabs 04/30/23 prednisone 20 mg tablet 40 mg (2 x 20 mg) PO DAILY #8 tabs 08/15/23 metoprolol tartrate 25 mg tablet 12.5 mg (1/2 x 25 mg) PO BID #60 08/29/23 tabs Allergies Allergy/AdvReac Type Severity Reaction Status Date / Time cephalexin Allergy Verified 08/29/23 13:23 Penicillins Allergy Verified 08/29/23 13:23 [facility] Disclaimer: The information contained in this section may have been updated after the patient was seen, as this information can be updated by other users. Medical History Rotator cuff arthropathy of right shoulder Acute anterior epistaxis Chronic hypoxemic respiratory failure O2 dependent Nodule of left lung Heart attack Encounter for screening for malignant neoplasm of lung COPD mixed type History of smoking 30 or more pack years Dyspnea Bilateral hearing loss due to cerumen impaction Encounter for removal of nasal packing CAD in [place] artery Cardiomyopathy Non-STEMI (non-ST elevated myocardial infarction) Right ventricular dilation Coronary artery disease HFrEF (heart failure with reduced ejection fraction) Pneumonia Diabetes mellitus, type 2 Iron deficiency anemia Pulmonary hypertension Osteoporosis Major depressive disorder Heart failure Depression Lymphedema Insomnia Class 2 obesity due to excess calories with body mass index (BMI) of 39.0 to 39.9 in adult Fibromyalgia Congestive heart failure Atrial fibrillation Anxiety HTN (hypertension) HLD (hyperlipidemia) COPD (chronic obstructive pulmonary disease) BMI 30.0-30.9,adult Osteoarthritis Callus of foot Paresthesia of both lower extremities Onychodystrophy Onychomycosis Diabetic foot Surgical History History of coronary artery stent placement History of bladder surgery H/O: hysterectomy H/O hernia repair Family History Other Diabetes Hyperlipidemia Hypertension No significant family history Social History (Updated 09/01/23 @ 14:22 by Phuong Foster RN) Smoking Status: Never smoker alcohol intake: never substance use type: denies use current occupational status: retired and disabled Travel in the last 8 weeks: None housing: shelter lives independently: No shelter: Yes caffeine: Yes ROS Obtained: Yes All systems reviewed & no additional complaints except as documented Physical Exam General General appearance: lethargic, obese and other (Appears older than stated age, intermittently falling asleep) Head Head exam: atraumatic and normocephalic Eye Eye exam: Present normal appearance, PERRL and EOMI ENT ENT exam: Present other (Cannula in place) Neck Neck exam: Present normal inspection, full ROM and trachea midline Respiratory Respiratory exam: Present normal lung sounds bilaterally; Absent respiratory distress, wheezes, stridor, accessory muscle use or prolonged expiratory phase Cardiovascular Cardiovascular exam: Present normal rhythm, bradycardia and other (Pulses equal symmetric in upper and lower extremities) Abdominal Exam Abdominal exam: Present soft; Absent distention, tenderness, guarding, rebound or pulsatile mass Extremities Exam Extremities exam: Present edema (Bilateral knee pain) Neurological Exam Neurological exam: Present oriented X3, CN II-XII intact and other (GCS 14 for opens eyes to voice.); Absent motor sensory deficit Skin Skin exam: Present warm and dry; Absent diaphoresis or erythema Medical Decision Making Medical Records Medical records reviewed: Yes I reviewed the patient's medical records. Tj Inquiry Pt receiving controlled substance: No Tj was queried for this patient: No Vital Signs: 09/01/23 12:05 Temperature 98.4 F Temperature Source Oral Pulse Rate [Right] 37 L Respiratory Rate 16 Blood Pressure [Right Arm] 85/66 L Blood Pressure Mean [Right Arm] 72 02 Sat by Pulse Oximetry 94 L Oxygen Delivery Method Nasal Cannula Oxygen Flow Rate (LPM) 3 Lab Data Lab Results 09/01/23 12:15: VBG pH 7.29 L, VBG pCO2 77.5 H, VBG pO2 50.9 H, VBG HCO3 36.1 H, VBG Total CO2 38.5 H, VBG O2 Saturation 79.9 H, VBG Base Excess 9.4 H, VBG Lactic Acid 2.0 09/01/23 12:42: WBC 7.7, RBC 5.82 H, Hgb 14.2, Hct 48.1 H, MCV 82.6, MCH 24.4 L, MCHC 29.5 L, RDW 22.1 H, Plt Count 153, MPV 9.5, Neut % (Auto) 69.9, Lymph % (Auto) 21.0, [place] % (Auto) 6.6, Eos % (Auto) 1.6, Baso % (Auto) 0.9, Neut # (Auto) 5.4, Lymph # (Auto) 1.6, [place] # (Auto) 0.5, Eos # (Auto) 0.1, Baso # (Auto) 0.1, APTT 25.6, Sodium 140, Potassium 4.0, Chloride 96 L, Carbon Dioxide 40 H, Anion Gap 8.0, BUN 21 H, Creatinine 1.10 H, Estimated Creat Clear 73, E stimated GFR 49 L, Est GFR ( Amer) 59, Glucose 211 H, Lactate 1.3, Calcium 8.9, Magnesium 2.2 D, Total Bilirubin 0.2, AST 28, ALT 26, Alkaline Phosphatase 59, Troponin I < 0.01, NT-Pro-B Natriuret Pep 981 H, Total Protein 6.1 L, Albumin 3.5, Globulin 2.6, Albumin/Globulin Ratio 1.3, TSH 8.34 H, Thyroxine (T4) 7.2 09/01/23 12:42 09/01/23 12:42 Orders (Tests/Meds): ED MEDICATIONS Generic Name Dose Route Start Last Admin Trade Name Freq PRN Reason Stop Dose Admin Vancomycin/PEG/NADA/Lysine/Water 1.75 gm in 350 mls @ 175 mls/hr 09/01/23 12:45 Vancomycin 1.75gm/350ml (Peg) Premix IV 09/01/23 14:44 ONCE ONE Discontinued Medications Generic Name Dose Route Start Last Admin Trade Name Freq PRN Reason Stop Dose Admin Calcium Gluconate/Sodium Chloride 2 gm in 100 mls @ 50 mls/hr 09/01/23 12:16 09/01/23 12:22 Calcium Gluconate 2,000mg/100ml Nacl Premix IV 09/01/23 14:15 50 mls/hr ONCE ONE Administration Lactated Ringer's 1,000 mls @ 999 mls/hr 09/01/23 12:23 09/01/23 13:13 Lactated Ringer's 1000 Ml Bag IV 09/01/23 13:23 999 mls/hr .Q1H1M ONE Administration Levofloxacin/Dextrose 750 mg in 150 mls @ 100 mls/hr 09/01/23 12:28 Levofloxacin 750mg/150ml Premix IV 09/01/23 13:57 ONCE ONE Metronidazole 500 mg in 100 mls @ 100 mls/hr 09/01/23 12:27 09/01/23 13:15 Flagyl 500mg/100ml Ivpb IV 09/01/23 13:26 100 mls/hr ONCE ONE Administration Miscellaneous 1 each 09/01/23 12:30 Vancomycin Consult Request NOTAPPLIC 10/01/23 12:29 CONSULT PHARMACY [facility] ORD[facility] Category Date Time Status XR chest portable Stat Exams 09/01/23 12:14 Completed Complete Blood Count Auto Diff AMLAB Lab 09/02/23 06:00 Ordered Complete Blood Count Auto Diff Stat Lab 09/01/23 12:42 Completed Comprehensive Metabolic Panel AMLAB Lab 09/02/23 06:00 Ordered Comprehensive Metabolic Panel Stat Lab 09/01/23 12:42 Completed Lactic Acid Stat Lab 09/01/23 12:42 Completed Magnesium AMLAB Lab 09/02/23 06:00 Ordered Magnesium Stat Lab 09/01/23 12:42 Completed NT Pro Brain Natriuretic Pep. Stat Lab 09/01/23 12:42 Completed PTT [Activated Partial Thrombo Time] Stat Lab 09/01/23 12:42 Completed T4 (Thyroxine) Stat Lab 09/01/23 12:42 Completed TSH [Thyroid Stimulating Hormone] Stat Lab 09/01/23 12:42 Completed Troponin I Q3H Lab 09/01/23 15:15 Ordered Troponin I Q3H Lab 09/01/23 18:15 Ordered Troponin I Stat Lab 09/01/23 12:42 Completed Urinalysis and Microscopic Stat Lab 09/01/23 12:15 Ordered Blood Culture Stat Micro 09/01/23 12:42 Received Venous Blood Gas Stat RT 09/01/23 12:15 Completed Medical Decision Narrative: 72-year-old female well-known to this emergency department who has history of hypertension, hyperlipidemia, COPD on 3 L nasal cannula, A-fib on Eliquis, CHF, presenting with lethargy. Patient states that she was taken off her amiodarone last week and started on metoprolol. At [facility], patient was having lethargy. Vitals were taken, patient was hypotensive and bradycardic. EMS was called. On arrival, patient mentating appropriately, but intermittently falling asleep. GCS 14 for eyes open to voice. She has no complaints at this time other than feeling tired. History was obtained via conversation with patient and EMS. On arrival, patient hemodynamically stable, alert, oriented x4, appropriate, GCS 14, moving all extremities spontaneously, pupils equal and reactive to light. Full physical exam performed and significant for chronically ill, tired appearing woman in no acute distress. Pulmonary exam exam within normal limits. Cardiac exam without murmurs, gallops, rubs, but she does have bradycardia in the 30s or 40s. Nonpitting lower extremity edema. She is mildly hypotensive with systolic right around 100, wide pulse pressure with diastolic in the 50s. Differential includes medication adverse effect including over beta-blockade, brash syndrome, pneumonia, sepsis, UTI, ACS, PR, among others. Patient placed on continuous cardiac monitoring and continuous pulse ox with initial blood pressure 85/66, heart rate 37, saturation 94% on 3 L nasal cannula. Afebrile at 98 4 ?F. Independent interpretation of EKG shows sinus bradycardia rate around 37 bpm. MS interval mildly prolonged, QRS 122, QTc 237. Rightward axis deviation. Patient was given 2 g calcium gluconate for symptomatic management and correction of underlying abnormalities. Workup independently interpreted and significant for nonactionable CBC. Chemistry with mild TESSIE creatinine 1.1 BUN 21. Patient's VBG respiratory acidosis with pH 7.29, CO2 77, oxygen normal at 59, bicarb high at 36 1. BNP and troponin stable and negative. Chest x-ray without acute cardiopulmonary airspace disease on independent interpretation. Patient placed on BiPAP, continues to be arousable, but sleepy. Because patient received atropine with EMS without improvement in heart rate, blood pressure, or mental status, not continued here. See radiology read for full review of final results. Given patient's history, physical exam, workup, this most likely represents over beta-blockade and hypercapnic respiratory failure. Because patient high risk for clinical decompensation, deemed appropriate for inpatient admission. Results were relayed to patient who voiced understanding and patient was agreeable to inpatient admission and management. Patient was admitted to the hospital for further definitive management. Registered Nurse Obstetrics disclaimer Much of this encounter note is an electronic before school spoken language to printed text. Electronic before school of the spoken language may permit errors. Although I have reviewed the note, some errors may still exist. Critical Care Critical Care Time Critical Care Time: Yes (resp, CV) Attestation: On 09/01/23, the high probability of a clinically significant, sudden or life threatening deterioration of the following system(s) required my full and direct attention, intervention and personal management. The time I documented below is in addition to time spent performing reported procedures but includes the following listed in this critical care notation. Total Time Total Critical Care Time: 45
--- NOTE | 2023-09-01 12:27 | PC.NURSE ---
XR AT BEDSIDE
[2023-09-01 12:56] LABS: VBG Base Excess 9.4 mmol/L (-2.4-2.3); VBG HCO3 36.1 mmol/L (23-30); VBG Oxygen Saturation 79.9 % (50-70); VBG PH 7.29 mmol/L (7.31-7.41); VBG PO2 50.9 mmol/L (28-40); VBG Total CO2 38.5 mmol/L (23-27)
[2023-09-01 12:57] LABS: Basophils # 0.1 K/mm3 (0-0.2); Basophils % 0.9 % (0.1-2.0); Eosinophils # 0.1 K/mm3 (0.0-0.4); Eosinophils % 1.6 % (0.1-12.0); Hematocrit 48.1 % (37.0-47.0); Hemoglobin 14.2 g/dL (12.2-16.2); Lymphocytes # 1.6 K/mm3 (0.7-4.5); Mean Corpuscular HGB Conc 29.5 g/dL (31.8-35.4); Mean Corpuscular Hemoglobin 24.4 pg (27.0-31.2); Mean Corpuscular Volume 82.6 fl (81-99); Mean Platelet Volume 9.5 fl (7.4-10.4); Monocytes # 0.5 K/mm3 (0.1-1.0); Monocytes % 6.6 % (1.7-9.3); Neutrophils # 5.4 K/mm3 (1.8-7.8); Neutrophils % 69.9 % (37.0-80.0); Platelet Count 153 K/mm3 (142-424); Red Blood Count 5.82 M/mm3 (4.20-5.40); Red Cell Distribution Width 22.1 % (11.5-17.5); White Blood Count 7.7 K/mm3 (4.8-10.8)
[2023-09-01 12:58] LABS: VBG PCO2 77.5 mmol/L (35-51)
[2023-09-01 13:03] LABS: Albumin Level 3.5 g/dl (3.5-5.0); Chloride 96 mmol/L (98-107); Sodium 140 mmol/L (136-145)
[2023-09-01 13:06] LABS: Alanine Aminotransferase 26 U/L (12-78); Albumin/Globulin Ratio 1.3 (1.1-1.8); Alkaline Phosphatase 59 U/L (38-126); Aspartate Amino Transferase 28 U/L (14-36); Bilirubin,Total 0.2 mg/dl (0.2-1.3); Blood Urea Nitrogen 21 mg/dl (7-17); Creatinine Clearance Estimated 73 mL/min (50-200); Estimated Glomerular Filt Rate 49 ml/min (>60); GFR (African American) 59 ML/MIN (>60); Globulin 2.6 g/dL (1.3-3.2); Lactic Acid 1.3 mmol/L (0.7-2.1); Total Protein,Serum 6.1 g/dl (6.3-8.2)
[2023-09-01 13:07] LABS: Calcium 8.9 mg/dl (8.4-10.2); Glucose 211 mg/dl (74-100); Magnesium 2.2 mg/dl (1.6-2.3)
[2023-09-01 13:08] LABS: Activated Partial Thrombo Time 25.6 seconds (22.8-30.6)
[2023-09-01 13:13] LABS: Carbon Dioxide 40 mmol/L (22.0-30.0)
[2023-09-01] MEDS: LACTATED RINGERS 1000ML 1,000 ML 999 ML IV (13:13)
[2023-09-01] MEDS: METRONIDAZ/SOD CHL 500 MG/100 ML PIGGYBACK 100 MG IV (13:15)
[2023-09-01 13:17] LABS: NT Pro Brain Natriuretic Pep. 981 pg/mL (0-125)
[2023-09-01 13:21] LABS: Troponin I < 0.01 ng/ml (0.00-0.034)
[2023-09-01 13:24] LABS: T4 (Thyroxine) 7.2 ug/dl (5.53-11.0)
--- NOTE | 2023-09-01 13:31 | PC.NURSE ---
RESPIRATORY NOTIFIED OF BI-PAP ORDER
[2023-09-01 13:37] LABS: Thyroid Stimulating Hormone 8.34 uIU/mL (0.465-4.68)
--- NOTE | 2023-09-01 13:56 | PC.NURSE ---
DR SAM SPEAKING WITH DR HARDY
--- NOTE | 2023-09-01 14:00 | PC.NURSE ---
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
--- NOTE | 2023-09-01 14:02 | EXP.HP ---
History of Present Illness *Admission Date: 09/01/23 *Reason for visit:: Altered mental state *History of present illness: Ms. Sena is a 72-year-old female well-known to our facility with history of hypertension, hyperlipidemia, COPD on 3 L, A-fib on Eliquis, CHF, sleep apnea necessitating CPAP nightly. She lives at a long-term care facility. Presented to the ER via EMS due to lethargy and concern for abnormal heart rhythm. On arrival to the ER, patient was found to be hypotensive and bradycardic. Intermittently falling asleep when EMS picked her up. GCS of 14. Will open eyes to voice and respond appropriately and then falls off to sleep. History mainly obtained via EMS and nursing facility. Workup showing hypercapnia and sinus bradycardia with hypotension. Administered fluid bolus with improvement in her blood pressure. Administered 2 g of calcium gluconate for symptomatic management of her bradycardia. Review of meds showed transition to metoprolol within the past week and discontinuation of her amiodarone. Concern for beta-aliya overdose. Patient initiated on BiPAP. Having some improvement in her mentation. Given her respiratory failure and bradycardia, medicine consulted for admission and further management. Upon arrival to the floor, patient is wanting to eat. She is alert and oriented x 3 but easily dozes off. Will obtain ABG to evaluate response. Needs to continue to wear BiPAP. Stressed this to her much during his appointment as she fades back off to sleep. Remains bradycardic with improved blood pressure. Heart rate 35-40. Denies any chest pain, nausea, vomiting. Complains of general pain. [facility] Disclaimer: The information contained in this section may have been updated after the patient was seen, as this information can be updated by other users. Medical History Rotator cuff arthropathy of right shoulder Acute anterior epistaxis Chronic hypoxemic respiratory failure Nodule of left lung Heart attack Encounter for screening for malignant neoplasm of lung COPD mixed type History of smoking 30 or more pack years Dyspnea Bilateral hearing loss due to cerumen impaction Encounter for removal of nasal packing CAD in [place] artery Cardiomyopathy Non-STEMI (non-ST elevated myocardial infarction) Right ventricular dilation Coronary artery disease HFrEF (heart failure with reduced ejection fraction) Pneumonia Diabetes mellitus, type 2 Iron deficiency anemia Pulmonary hypertension Osteoporosis Major depressive disorder Heart failure Depression Lymphedema Insomnia Class 2 obesity due to excess calories with body mass index (BMI) of 39.0 to 39.9 in adult Fibromyalgia Congestive heart failure Atrial fibrillation Anxiety HTN (hypertension) HLD (hyperlipidemia) COPD (chronic obstructive pulmonary disease) BMI 30.0-30.9,adult Osteoarthritis Callus of foot Paresthesia of both lower extremities Onychodystrophy Onychomycosis Diabetic foot Surgical History History of coronary artery stent placement History of bladder surgery H/O: hysterectomy H/O hernia repair Family History Other Diabetes Hyperlipidemia Hypertension No significant family history Social History Smoking Status: Never smoker alcohol intake: never substance use type: denies use current occupational status: retired and disabled Travel in the last 8 weeks: None housing: longterm lives independently: No longterm: Yes caffeine: Yes Review of Systems Review of Systems Review of systems (narrative): 14 point review of systems performed, pertinent positives and negatives as per HPI Meds Home Medications and Allergies Home Medications ?Medication ?Instructions ?Recorded ?Confirmed ?Type ergocalciferol (vitamin D2) 1,250 1,250 mcg PO .EVERY OTHER WEEK 08/12/20 08/29/23 History mcg (50,000 unit) capsule Supplement albuterol sulfate 90 mcg/actuation 2 puff inhalation Q4HP PRN 12/18/22 08/29/23 History aerosol inhaler Shortness Of Breath Or Wheezing apixaban 5 mg tablet (Eliquis) 5 mg PO BID 12/18/22 08/29/23 History docusate sodium 100 mg tablet 100 mg PO BID 12/18/22 08/29/23 History ferrous sulfate 324 mg (65 mg 324 mg PO DAILY 12/18/22 08/29/23 History iron) tablet,delayed release icosapent ethyl 1 gram capsule 1 g PO BID 12/18/22 08/29/23 History (Vascepa) insulin lispro 100 unit/mL 0 sliding scale dose SQ ACHS 12/18/22 08/29/23 History subcutaneous pen Diabetes multivitamin 1 tab PO DAILY 12/18/22 08/29/23 History nitroglycerin 0.4 mg sublingual 0.4 mg sublingual Q5MINP PRN Chest 12/18/22 08/29/23 History tablet Pain omeprazole 40 mg capsule,delayed 40 mg PO HS 12/18/22 08/29/23 History release acetaminophen 500 mg tablet 500 mg PO AC Pain 12/19/22 08/29/23 History albuterol sulfate 2.5 mg/3 mL 2.5 mg inhalation Q4HP PRN 12/19/22 08/29/23 History (0.083 %) solution for nebulization shortness of air or wheezing gabapentin 300 mg capsule 300 mg PO BID 12/19/22 08/29/23 History hydrocodone 5 mg-acetaminophen 325 1 tab PO Q12HP PRN Moderate Pain 01/12/23 08/29/23 History mg tablet (Scale Score 5-6) clopidogrel 75 mg tablet 75 mg PO DAILY 03/18/23 08/29/23 History amitriptyline 10 mg tablet 10 mg PO HS 04/10/23 08/29/23 History clobetasol 0.05 % shampoo 1 applic topical DAILY Skin 04/19/23 08/29/23 History Condition empagliflozin 10 mg tablet 10 mg PO DAILY 04/19/23 08/29/23 History (Jardiance) insulin glargine 100 unit/mL (3 14 unit SQ HS Diabetes 04/19/23 08/29/23 History mL) subcutaneous pen (Lantus Solostar U-100 Insulin) levothyroxine 50 mcg tablet 50 mcg PO DAILYDM 04/19/23 08/29/23 History miconazole nitrate 2 % topical 1 applic topical BID Skin Condition 04/19/23 08/29/23 History cream ondansetron 4 mg disintegrating 4 mg PO Q6HP PRN Nausea And 04/19/23 08/29/23 History tablet Vomiting bumetanide 2 mg tablet 2 mg PO BID #60 tabs 04/30/23 08/29/23 Rx buspirone 10 mg tablet 10 mg PO TID 07/04/23 08/29/23 History cetirizine 10 mg tablet 10 mg PO DAILY 08/07/23 08/29/23 History fluticasone fur. 100 mcg-umeclid 1 inh inhalation DAILY 08/13/23 08/29/23 History 62.5 mcg-vilant 25 mcg inhalat.powder (Trelegy Ellipta) paroxetine HCl 40 mg tablet (Paxil) 40 mg PO HS 08/13/23 08/29/23 History rosuvastatin 10 mg tablet 10 mg PO HS 08/13/23 08/29/23 History spironolactone 50 mg tablet 50 mg PO DAILY 08/13/23 08/29/23 History trazodone 100 mg tablet 100 mg PO HS 08/13/23 08/29/23 History polyethylene glycol 3350 17 17 g PO DAILY 08/14/23 08/29/23 History gram/dose oral powder prednisone 20 mg tablet 40 mg (2 x 20 mg) PO DAILY #8 tabs 08/15/23 08/29/23 Rx fluconazole 150 mg tablet 150 mg PO 08/29/23 08/29/23 History insulin glargine-yfgn 100 unit/mL 100 unit SQ 08/29/23 08/29/23 History (3 mL) subcutaneous pen metoprolol tartrate 25 mg tablet 12.5 mg (1/2 x 25 mg) PO BID #60 08/29/23 08/29/23 Rx tabs trazodone 150 mg tablet 150 mg PO HS 08/29/23 08/29/23 History New Prescriptions to Start Prescriptions: Allergies Allergy/AdvReac Type Severity Reaction Status Date / Time cephalexin Allergy Verified 08/29/23 13:23 Penicillins Allergy Verified 08/29/23 13:23 Exam Data for Last 24 hours Vital signs and Labs for Last 24 Hours: Temp Pulse Resp BP Pulse Ox O2 Del Method O2 Flow Rate 98.4 F 37 L 16 85/66 L 94 L Nasal Cannula 3 09/01/23 12:05 09/01/23 12:05 09/01/23 12:05 09/01/23 12:05 09/01/23 12:05 09/01/23 12:05 09/01/23 12:05 FiO2 35 09/01/23 13:45 Laboratory Results - last 24 hr 09/01/23 12:15: VBG pH 7.29 L, VBG pCO2 77.5 H, VBG pO2 50.9 H, VBG HCO3 36.1 H, VBG Total CO2 38.5 H, VBG O2 Saturation 79.9 H, VBG Base Excess 9.4 H, VBG Lactic Acid 2.0 09/01/23 12:42: WBC 7.7, RBC 5.82 H, Hgb 14.2, Hct 48.1 H, MCV 82.6, MCH 24.4 L, MCHC 29.5 L, RDW 22.1 H, Plt Count 153, MPV 9.5, Neut % (Auto) 69.9, Lymph % (Auto) 21.0, [place] % (Auto) 6.6, Eos % (Auto) 1.6, Baso % (Auto) 0.9, Neut # (Auto) 5.4, Lymph # (Auto) 1.6, [place] # (Auto) 0.5, Eos # (Auto) 0.1, Baso # (Auto) 0.1, APTT 25.6, Sodium 140, Potassium 4.0, Chloride 96 L, Carbon Dioxide 40 H, Anion Gap 8.0, BUN 21 H, Creatinine 1.10 H, Estimated Creat Clear 73, Estimated GFR 49 L, Est GFR ( Amer) 59, Glucose 211 H, Lactate 1.3, Calcium 8.9, Magnesium 2.2 D, Total Bilirubin 0.2, AST 28, ALT 26, Alkaline Phosphatase 59, Troponin I < 0.01, NT-Pro-B Natriuret Pep 981 H, Total Protein 6.1 L, Albumin 3.5, Globulin 2.6, Albumin/Globulin Ratio 1.3, TSH 8.34 H, Thyroxine (T4) 7.2 I & O for Last 24 hours: Intake & Output 08/29/23 08/30/23 08/31/23 09/01/23 23:59 23:59 23:59 23:59 Weight 101.151 kg Constitutional Constitutional: mild distress, morbidly obese, chronically ill appearing and cooperative *Routine HEENT Exam Head: Present normocephalic Eye: Present EOMI ENT: Present mucous membranes moist *Routine Neck Exam Neck: Present supple and trachea midline; Absent JVD or lymphadenopathy *Routine Respiratory Exam Respiratory: Present prolonged expiratory phase, distant breath sounds, diminished air movement, normal respiratory effort and symmetric chest movement; Absent rhonchi or crackles *Routine Cardiovascular Exam Cardiovascular: Present bradycardia *Routine Abdominal Exam Abdominal: Present soft and normoactive bowel sounds; Absent tenderness *Routine Rectal Exam Rectal:: deferred *Routine Genitalia Exam Genitalia:: deferred *Routine Extremities Exam Extremities: Present edema (3+ to knees) and full ROM; Absent calf tenderness *Routine Skin Exam Skin: Present warm and wounds; Absent rash Comments: Chronic stasis changes of lower extremity *Routine Neurological Exam Neurological: Present alert, oriented X3, moving all extremities, hearing grossly intact and normal speech Comments: More oriented after arriving to the floor. Groggy but is oriented x 3 Routine Psychiatric Exam Psychiatric: Present cooperative Assessment and Plan *Assessment and plan (1) Acute hypercapnic respiratory failure: Status: Acute Category: Medical Code(s): J96.02 - Acute respiratory failure with hypercapnia (2) CO2 narcosis: Status: Acute Category: Medical Code(s): R06.89 - Other abnormalities of breathing (3) Bradycardia: Status: Acute Category: Medical Code(s): R00.1 - Bradycardia, unspecified (4) Accidental overdose: Status: Acute Category: Medical Code(s): T50.901A - Poisoning by unspecified drugs, medicaments and biological substances, accidental (unintentional), initial encounter (5) Acute on chronic respiratory failure with hypoxemia: Status: Acute Category: Medical Code(s): J96.21 - Acute and chronic respiratory failure with hypoxia (6) NARCISO (obstructive sleep apnea): Problem Comment: Active patient at [facility] Status: Chronic Category: Medical Code(s): G47.33 - Obstructive sleep apnea (adult) (pediatric) (7) Atrial fibrillation: Status: Acute Qualifiers: Atrial fibrillation type: unspecified chronic Qualified Code(s): I48.20 - Chronic atrial fibrillation, unspecified Category: Medical Code(s): I48.91 - Unspecified atrial fibrillation (8) Diabetes mellitus, type 2: Status: Acute Qualifiers: Diabetes mellitus complication status: with other specified complication Diabetes mellitus longterm insulin use: with ferry terminal agent use Qualified Code(s): E11.69 - Type 2 diabetes mellitus with other specified complication; Z79.4 - ferry terminal agent (current) use of insulin Category: Medical Code(s): E11.9 - Type 2 diabetes mellitus without complications (9) HTN (hypertension): Status: Acute Qualifiers: Hypertension type: primary hypertension Qualified Code(s): I10 - Essential (primary) hypertension Category: Medical Code(s): I10 - Essential (primary) hypertension (10) HLD (hyperlipidemia): Status: Acute Qualifiers: Hyperlipidemia type: mixed hyperlipidemia Qualified Code(s): E78.2 - Mixed hyperlipidemia Category: Medical Code(s): E78.5 - Hyperlipidemia, unspecified (11) Pulmonary hypertension: Status: Acute Category: Medical Code(s): I27.20 - Pulmonary hypertension, unspecified (12) Coronary artery disease: Status: Acute Qualifiers: Associated angina: with other forms of angina Coronary Disease-Associated Artery/Lesion type: [place] artery [place] vs. transplanted heart: [place] heart Qualified Code(s): I25.118 - Atherosclerotic heart disease of [place] coronary artery with other forms of angina pectoris Category: Medical Code(s): I25.10 - Atherosclerotic heart disease of [place] coronary artery without angina pectoris Plan 72-year-old female with complex past medical history, heart failure, respiratory failure, who presented with symptomatic bradycardia and hypotension. Also found to be in hypercapnic respiratory failure. Initiated on BiPAP and received calcium in the ER. Discussed case with ER physician, request admission for concern for beta-aliya overdose and need for further treatment with her hypercapnic respiratory failure. I agreed to admit for further management. Admitted to stepdown level of care. Patient alert x 3 and interactive on exam upon arriving to the floor. Still dozing off but at appears to be responding to the duration of BiPAP she received in the ER. Requesting something to eat, stressed the importance of wearing her BiPAP and the need for inpatient management. Patient stated understanding. Problems addressed as follows: Acute on chronic hypercapnic respiratory failure Chronic hypoxemic respiratory failure NARCISO CO2 narcosis -Confused on admission. initial pH 7.2 on VBG. pCO2 greater than 80. Initiated on BiPAP. Having response. ABG obtained at time of arriving to floor. pH improving at 7.3, pCO2 of 63, still hypercapnic. Continue BiPAP with pressures of 16/8, rate of 20, 35% FiO2. -Received antibiotics in the ER, low concern for pneumonia however; White count normal at 7.7. No occasion to continue antibiotic -Continue supplemental oxygen as needed, 35% while on BiPAP, 3 L while not on BiPAP. Goal sats greater 90% -Patient to wear BiPAP while napping or asleep. Okay to take it off for meals and 2 hours after. -Will repeat ABG in the morning Bradycardia Hypotension Atrial fibrillation -Concerning for beta-aliya overdose. Was switched from amiodarone to metoprolol within the past week. Holding metoprolol. Received 2 g calcium gluconate in the ER. Administered 4 mg glucagon. Monitor for improvement and heart rate on telemetry. -Blood pressure improving after fluids in the ER -Continue Eliquis stable the medical patient. -If heart rate improves, will consider resuming amiodarone -Cardiology consult Sunday Polypharmacy Chronic pain -Patient on pulse dating Medicare is for pain and anxiety -Holding antihistamines -On gabapentin 300 mg twice daily, hold thing at the time -Recently increased on trazodone from 100 to 150 mg nightly, will hold at this time -On hydrocodone, will verify dose with nursing facility, holding at this time Anxiety: Taking amitriptyline 10 mg nightly, BuSpar 10 mg 3 times a day, continue Paxil 40 mg nightly Diabetes: Continue Lantus 14 units nightly, sliding scale insulin with fingersticks ACHS Class II obesity complicates all aspects of care Full code Diabetic diet
--- NOTE | 2023-09-01 14:18 | PC.NURSE ---
report called to second floor
--- NOTE | 2023-09-01 14:34 | PC.NURSE ---
arrived at 14:31 by stretcher from ed.
[2023-09-01] MEDS: LEVOFLOXACIN/D5W 750 MG/150 ML 750 MG/150 ML PIGGYBACK 100 MG IV (14:49)
[2023-09-01] MEDS: GLUCAGON 1 MG/ML VIAL 4 MG IV (15:11)
[2023-09-01 15:17] LABS: ABG Oxygen Saturation 98 % (90-100); ABG PH 7.33 mmol/L (7.35-7.45); ABG PO2 105.7 mmhg (80-100); ABG TCO2 33.9 mmhg (23-27)
[2023-09-01 15:18] LABS: Oxygen 35% Bipap 16/8 %; Vent Rate 20
[2023-09-01 15:19] LABS: Allen's Test Acceptable; Source Right Radial
[2023-09-01 15:21] LABS: ABG PCO2 62.3 mmhg (35.0-45.0)
[2023-09-01 15:58] LABS: Troponin I < 0.01 ng/ml (0.00-0.034)
[2023-09-01] MEDS: VANCOMYCIN/WATER FOR INJ (PEG) 1.75 GM/350 ML PIGGYBACK IV (16:41)
[2023-09-01] MEDS: humaLOG 100 UNITS/ML 10ML VIAL (SSI) SQ ×2 (16:48→21:04)
[2023-09-01 17:01] LABS: POC Glucose,Bedside 192 (70-110)
[2023-09-01] MEDS: IPRATROPIUM/ALBUTEROL 3 ML NEB IH ×2 (18:25→23:28)
[2023-09-01 18:52] LABS: Troponin I 0.01 ng/ml (0.00-0.034)
[2023-09-01] MEDS: APIXABAN 5MG TABLET 5 MG PO (21:01)
[2023-09-01] MEDS: AMITRIPTYLINE 10MG TABLET 10 MG PO (21:01)
[2023-09-01] MEDS: GABAPENTIN 300MG CAPSULE 300 MG PO (21:01)
[2023-09-01] MEDS: BUMETANIDE 2 MG 2 EACH PO (21:02)
[2023-09-01] MEDS: DOCUSATE SODIUM 100 MG 100 EACH PO (21:03)
[2023-09-01] MEDS: BUSPIRONE HCL 10 MG TABLET PO (21:03)
[2023-09-01] MEDS: INSULIN GLARGINE 100 UNITS/ML 3ML FLEXPEN 14 UNIT SQ (21:04)
[2023-09-01 23:51] LABS: Microscopic, Urine URINE MICROSCOPIC (MICROSCOPIC)
[2023-09-01 23:52] LABS: Appearance,Urine CLEAR (Clear); Bilirubin,Urine Negative (Negative); Blood, Urine Negative (Negative); Color,Urine YELLOW (Yellow); Glucose,Urine (UA) 2+ (Negative); Ketones,Urine Negative (Negative); Leukocyte Esterase,Urine TRACE (Negative); Nitrate,Urine Negative (Negative); Protein,Urine Negative (Negative); Urobilinogen,Urine 0.2 EU/dl (0.2)
[2023-09-02] VITALS (21 sets, daily range): BP systolic 87–123; BP diastolic 50–104; PULSE 30–50; RESP 14–23; TEMP 36.8–37.3; O2SAT 89–98; BMI 38.0
[2023-09-02 00:07] LABS: WBC,Urine Occasional #/hpf (0-3)
[2023-09-02] MEDS: IPRATROPIUM/ALBUTEROL 3 ML NEB IH ×4 (06:24→23:55)
[2023-09-02 06:54] LABS: Basophils # 0.1 K/mm3 (0-0.2); Basophils % 0.9 % (0.1-2.0); Eosinophils # 0.1 K/mm3 (0.0-0.4); Eosinophils % 1.3 % (0.1-12.0); Hematocrit 43.8 % (37.0-47.0); Hemoglobin 13.3 g/dL (12.2-16.2); Lymphocytes # 1.6 K/mm3 (0.7-4.5); Lymphocytes % 21.1 % (10-50); Mean Corpuscular HGB Conc 30.4 g/dL (31.8-35.4); Mean Corpuscular Hemoglobin 24.9 pg (27.0-31.2); Mean Corpuscular Volume 81.9 fl (81-99); Mean Platelet Volume 9.7 fl (7.4-10.4); Monocytes # 0.5 K/mm3 (0.1-1.0); Monocytes % 6.9 % (1.7-9.3); Neutrophils # 5.4 K/mm3 (1.8-7.8); Neutrophils % 69.7 % (37.0-80.0); Platelet Count 129 K/mm3 (142-424); Red Blood Count 5.35 M/mm3 (4.20-5.40); White Blood Count 7.8 K/mm3 (4.8-10.8)
[2023-09-02 06:55] LABS: POC Glucose,Bedside 98 (70-110)
[2023-09-02 06:55] LABS: POC Glucose,Bedside 169 (70-110)
[2023-09-02 07:15] LABS: Alanine Aminotransferase 22 U/L (12-78); Albumin Level 3.1 g/dl (3.5-5.0); Albumin/Globulin Ratio 1.1 (1.1-1.8); Alkaline Phosphatase 56 U/L (38-126); Anion Gap 4.7 mEq/L (5-15); Aspartate Amino Transferase 26 U/L (14-36); Bilirubin,Total 0.5 mg/dl (0.2-1.3); Blood Urea Nitrogen 17 mg/dl (7-17); Carbon Dioxide 37 mmol/L (22.0-30.0); Chloride 97 mmol/L (98-107); Creatinine Clearance Estimated 80 mL/min (50-200); Estimated Glomerular Filt Rate 61 ml/min (>60); GFR (African American) 74 ML/MIN (>60); Globulin 2.8 g/dL (1.3-3.2); Glucose 99 mg/dl (74-100); Magnesium 1.8 mg/dl (1.6-2.3); Potassium 3.7 mmoL/L (3.5-5.1); Sodium 135 mmol/L (136-145); Total Protein,Serum 5.9 g/dl (6.3-8.2)
[2023-09-02 07:34] LABS: ABG Base Excess 0.8 mmol/L (-2.4-2.3); ABG HCO3 26.4 mmhg (22.0-26.0); ABG Oxygen Saturation 93 % (90-100); ABG PCO2 48.6 mmhg (35.0-45.0); ABG PH 7.35 mmol/L (7.35-7.45); ABG PO2 74.5 mmhg (80-100); ABG TCO2 27.9 mmhg (23-27); Oxygen 35% Bipap16/8 %; Vent Rate 20
[2023-09-02 07:35] LABS: Allen's Test Acceptable; Source Right Radial
--- NOTE | 2023-09-02 08:46 | P.CONPHA_ITS ---
Pharmacy Intervention Comments: MEDICATION RECONCILIATION COMPLETED ON PATIENT USING MAR FROM [facility]. -MARGIE MERCADO, YOBANID
--- NOTE | 2023-09-02 08:46 | HMH.PHAINT1 ---
Pharmacy Intervention Comments: MEDICATION RECONCILIATION COMPLETED ON PATIENT USING MAR FROM [facility]. -MARGIE MERCADO, YOBANID
[2023-09-02] MEDS: LEVOTHYROXINE 50MCG (0.05MG) TAB 50 MCG PO (08:57)
[2023-09-02] MEDS: EMPAGLIFLOZIN 10MG TABLET 10 MG PO (08:57)
[2023-09-02] MEDS: CLOPIDOGREL 75MG TAB 75 MG PO (08:57)
[2023-09-02] MEDS: DOCUSATE SODIUM 100 MG CAPSULE PO ×2 (08:57→20:30)
[2023-09-02] MEDS: APIXABAN 5MG TABLET 5 MG PO ×2 (08:57→20:30)
[2023-09-02] MEDS: BUSPIRONE HCL 10 MG TABLET PO ×3 (08:57→20:30)
[2023-09-02] MEDS: GABAPENTIN 300MG CAPSULE 300 MG PO ×2 (08:57→20:30)
[2023-09-02] MEDS: BUMETANIDE 1 MG TABLET 2 MG PO ×2 (08:58→16:05)
[2023-09-02] MEDS: SPIRONOLACTONE 25MG TABLET 50 MG PO (08:58)
[2023-09-02] MEDS: FLUTICASONE/UMECLIDIN/VILANTER 100/62.5/25MCG INHALER 1 PUFF IH (10:22)
--- NOTE | 2023-09-02 11:06 | PC.NURSE ---
Changed pts. Bipap to CPAP 10 , 28% to match her home machine settings. Per .
[2023-09-02 11:11] LABS: POC Glucose,Bedside 237 (70-110)
--- NOTE | 2023-09-02 11:49 | EXP.ACUTE.PN ---
Subjective *Date: 09/02/23 *Time: 11:49 Interval history: Did well overnight. Wore BiPAP. Feeling much better this morning. Alert and oriented at baseline. No chest pain or shortness of breath. No nausea or vomiting. Tolerating p.o. intake. States she has some discomfort when she urinates when she first starts, no burning while peeing. Urinalysis reviewed from yesterday was unremarkable. Medical Exam Vital signs and Labs for Last 24 Hours: Vital Signs Temp Pulse Pulse Resp BP BP Pulse Ox 09/02/23 11:05 37 L 09/02/23 11:05 36 L 09/02/23 11:05 93 L 09/02/23 10:59 09/02/23 10:00 35 L 20 109/60 L 95 09/02/23 09:00 48 L 09/02/23 09:00 09/02/23 08:00 40 L 09/02/23 08:00 99.2 F 09/02/23 08:00 41 L 20 94/53 L 91 L 09/02/23 06:43 09/02/23 06:25 38 L 09/02/23 06:25 37 L 09/02/23 06:25 09/02/23 06:25 96 09/02/23 06:00 35 L 20 90/51 L 92 L 09/02/23 05:00 09/02/23 04:00 98.8 F 09/02/23 04:00 30 L 09/02/23 04:00 35 L 20 91/53 L 94 L 09/02/23 04:00 09/02/23 03:00 09/02/23 02:00 36 L 16 87/59 L 92 L 09/02/23 01:58 09/02/23 01:00 09/02/23 00:00 40 L 09/02/23 00:00 98.5 F 09/02/23 00:00 37 L 19 97/52 L 95 09/01/23 23:50 41 L 09/01/23 23:50 39 L 09/01/23 23:00 09/01/23 22:36 09/01/23 22:00 44 L 19 97/52 L 99 09/01/23 21:00 09/01/23 20:00 44 L 09/01/23 20:00 44 L 20 97/54 L 96 09/01/23 20:00 30 L 09/01/23 20:00 98.0 F 09/01/23 19:00 09/01/23 18:59 38 L 09/01/23 18:59 37 L 09/01/23 18:00 98.1 F 09/01/23 16:55 09/01/23 16:01 40 L 09/01/23 16:00 97.9 F 09/01/23 16:00 34 L 20 80/41 L 96 09/01/23 14:45 09/01/23 14:30 97.9 F 35 L 18 112/54 L 09/01/23 14:01 17 112/54 L 09/01/23 13:45 09/01/23 13:33 14 128/54 L 09/01/23 13:01 16 87/43 L 09/01/23 12:45 10 L 113/56 L 09/01/23 12:27 15 104/51 L 09/01/23 12:05 98.4 F 37 L 16 85/66 L 94 L O2 Del Method O2 Flow Rate FiO2 09/02/23 11:05 09/02/23 11:05 09/02/23 11:05 Nasal Cannula 3 09/02/23 10:59 Nasal Cannula 3 09/02/23 10:00 Nasal Cannula 3 09/02/23 09:00 Nasal Cannula 3 09/02/23 09:00 Nasal Cannula 3 09/02/23 08:00 09/02/23 08:00 09/02/23 08:00 BiPAP 09/02/23 06:43 BiPAP 09/02/23 06:25 09/02/23 06:25 09/02/23 06:25 35 09/02/23 06:25 BiPAP 35 09/02/23 06:00 BiPAP 09/02/23 05:00 BiPAP 09/02/23 04:00 09/02/23 04:00 09/02/23 04:00 BiPAP 09/02/23 04:00 BiPAP 09/02/23 03:00 BiPAP 09/02/23 02:00 09/02/23 01:58 35 09/02/23 01:00 BiPAP 09/02/23 00:00 09/02/23 00:00 09/02/23 00:00 BiPAP 09/01/23 23:50 09/01/23 23:50 09/01/23 23:00 BiPAP 09/01/23 22:36 35 09/01/23 22:00 BiPAP 09/01/23 21:00 Nasal Cannula 3 09/01/23 20:00 Nasal Cannula 3 09/01/23 20:00 Nasal Cannula 3 09/01/23 20:00 09/01/23 20:00 09/01/23 19:00 Nasal Cannula 3 09/01/23 18:59 09/01/23 18:59 09/01/23 18:00 09/01/23 16:55 Nasal Cannula 3 09/01/23 16:01 09/01/23 16:00 09/01/23 16:00 Nasal Cannula 3 09/01/23 14:45 Nasal Cannula 3 09/01/23 14:30 BiPAP 09/01/23 14:01 09/01/23 13:45 35 09/01/23 13:33 09/01/23 13:01 09/01/23 12:45 09/01/23 12:27 09/01/23 12:05 Nasal Cannula 3 Intake and Output 09/01/23 09/02/23 09/02/23 23:59 07:59 15:59 Intake Total 630 / 1220 590 / 920 330 / 920 Output Total 0 / 200 650 / 650 Balance 630 / 1020 -60 / 270 330 / 270 Intake: Intake, Oral Amount 480 / 720 240 / 570 330 / 570 Intake, Total IV Amount 150 / 500 350 / 350 Levofloxacin/D5w 750 mg/150 ml 150 / 150 750 mg In 150 ml @ 100 mls/hr IV ONCE ONE Rx#:[id number] Vancomycin/Water For Inj (Peg) 350 / 350 1.75 gm In 350 ml @ 175 mls/hr IV ONCE ONE Rx#:[id number] Output: Output, Urine Amount 0 / 200 650 / 650 Other: Number of Unmeasured Voids 1 0 Weight 101.151 kg Patient Weight 09/02/23 23:59 Weight 101.151 kg Laboratory Results - last 24 hr 09/01/23 12:15: VBG pH 7.29 L, VBG pCO2 77.5 H, VBG pO2 50.9 H, VBG HCO3 36.1 H, VBG Total CO2 38.5 H, VBG O2 Saturation 79.9 H, VBG Base Excess 9.4 H, VBG Lactic Acid 2.0 09/01/23 12:42: WBC 7.7, RBC 5.82 H, Hgb 14.2, Hct 48.1 H, MCV 82.6, MCH 24.4 L, MCHC 29.5 L, RDW 22.1 H, Plt Count 153, MPV 9.5, Neut % (Auto) 69.9, Lymph % (Auto) 21.0, Brooks % (Auto) 6.6, Eos % (Auto) 1.6, Baso % (Auto) 0.9, Neut # (Auto) 5.4, Lymph # (Auto) 1.6, Brooks # (Auto) 0.5, Eos # (Auto) 0.1, Baso # (Auto) 0.1, APTT 25.6, Sodium 140, Potassium 4.0, Chloride 96 L, Carbon Dioxide 40 H, Anion Gap 8.0, BUN 21 H, Creatinine 1.10 H, Estimated Creat Clear 73, Estimated GFR 49 L, Est GFR ( Amer) 59, Glucose 211 H, Lactate 1.3, Calcium 8.9, Magnesium 2.2 D, Total Bilirubin 0.2, AST 28, ALT 26, Alkaline Phosphatase 59, Troponin I < 0.01, NT-Pro-B Natriuret Pep 981 H, Total Protein 6.1 L, Albumin 3.5, Globulin 2.6, Albumin/Globulin Ratio 1.3, TSH 8.34 H, Thyroxine (T4) 7.2 09/01/23 15:15: Specimen Source Right radial, O2 % 35% bipap /, ABG pH 7.33 L, ABG pCO2 62.3 H, ABG pO2 105.7 H, ABG HCO3 32.0 H, ABG Total CO2 33.9 H, ABG O2 Saturation 98, ABG Base Excess 6.0 H, [place] Test Acceptable, Vent Rate 20, Troponin I < 0.01 09/01/23 16:43: POC Glucose 192 H 09/01/23 18:20: Troponin I 0.01 09/01/23 20:27: POC Glucose 169 H 09/01/23 23:46: Urine Color Yellow, Urine Appearance Clear, Urine pH 6.0, Ur Specific [place] 1.010, Urine Protein Negative, Urine Glucose (UA) 2+, Urine Ketones Negative, Urine Blood Negative, Urine Nitrate Negative, Urine Bilirubin Negative, Urine Urobilinogen 0.2, Ur Leukocyte Esterase Trace, Urine RBC None, Urine WBC Occasional, Ur Squamous Epith Cells 3-5, Urine Bacteria None 09/02/23 06:29: POC Glucose 98 09/02/23 06:33: WBC 7.8, RBC 5.35, Hgb 13.3, Hct 43.8, MCV 81.9, MCH 24.9 L, MCHC 30.4 L, RDW 22.0 H, Plt Count 129 L, MPV 9.7, Neut % (Auto) 69.7, Lymph % (Auto) 21.1, Brooks % (Auto) 6.9, Eos % (Auto) 1.3, Baso % (Auto) 0.9, Neut # (Auto) 5.4, Lymph # (Auto) 1.6, Brooks # (Auto) 0.5, Eos # (Auto) 0.1, Baso # (Auto) 0.1, Sodium 135 L, Potassium 3.7, Chloride 97 L, Carbon Dioxide 37 H, Anion Gap 4.7 L, BUN 17, Creatinine 0.90, Estimated Creat Clear 80, Estimated GFR 61, Est GFR ( Amer) 74 D, Glucose 99 D, Calcium 9.0, Magnesium 1.8 D, Total Bilirubin 0.5, AST 26, ALT 22, Alkaline Phosphatase 56, Total Protein 5.9 L, Albumin 3.1 L D, Globulin 2.8, Albumin/Globulin Ratio 1.1 09/02/23 07:13: ABG pH 7.35, ABG pCO2 48.6 H, ABG pO2 74.5 L, ABG HCO3 26.4 H, ABG Total CO2 27.9 H, ABG O2 Saturation 93, ABG Base Excess 0.8 09/02/23 10:58: POC Glucose 237 H I & O for Labs for Last 24 Hours: Intake & Output 08/30/23 08/31/23 09/01/23 09/02/23 23:59 23:59 23:59 23:59 Intake Total 630 / 1220 920 / 920 Output Total 0 / 200 650 / 650 Balance 630 / 1020 270 / 270 Weight 101.151 kg 101.151 kg Constitutional: Present no acute distress, morbidly obese, chronically ill appearing and cooperative Head: Present atraumatic and normocephalic ENT: Present normal exam Respiratory: Present prolonged expiratory phase and diminished air movement; Absent rhonchi, wheezes or crackles Cardiac: Present Reg Rate and Rhythm GI: Present soft and normal bowel sounds; Absent distention or tenderness Extremities: Present normal inspection, full ROM and edema (2+ to knees, chronic stasis dermatitis) Skin: Present intact; Absent erythema Comment:: Stasis dermatitis of lower extremities; legs tender to palpation Neuro: Present Grossly Intact, alert, awake and moves all extremities Comment:: Oriented to self and place Assessment and Plan *Assessment and plan (1) Acute hypercapnic respiratory failure: Status: Acute Category: Medical Code(s): J96.02 - Acute respiratory failure with hypercapnia (2) CO2 narcosis: Status: Acute Category: Medical Code(s): R06.89 - Other abnormalities of breathing (3) Bradycardia: Status: Acute Category: Medical Code(s): R00.1 - Bradycardia, unspecified (4) Accidental overdose: Status: Acute Category: Medical Code(s): T50.901A - Poisoning by unspecified drugs, medicaments and biological substances, accidental (unintentional), initial encounter (5) Acute on chronic respiratory failure with hypoxemia: Status: Acute Category: Medical Code(s): J96.21 - Acute and chronic respiratory failure with hypoxia (6) NARCISO (obstructive sleep apnea): Problem Comment: Active patient at [facility] Status: Chronic Category: Medical Code(s): G47.33 - Obstructive sleep apnea (adult) (pediatric) (7) Atrial fibrillation: Status: Acute Qualifiers: Atrial fibrillation type: unspecified chronic Qualified Code(s): I48.20 - Chronic atrial fibrillation, unspecified Category: Medical Code(s): I48.91 - Unspecified atrial fibrillation (8) Diabetes mellitus, type 2: Status: Acute Qualifiers: Diabetes mellitus penitentiary insulin use: with district operations manager use Diabetes mellitus complication status: with other specified complication Qualified Code(s): E11.69 - Type 2 diabetes mellitus with other specified complication; Z79.4 - FDC (current) use of insulin Category: Medical Code(s): E11.9 - Type 2 diabetes mellitus without complications (9) HTN (hypertension): Status: Acute Qualifiers: Hypertension type: primary hypertension Qualified Code(s): I10 - Essential (primary) hypertension Category: Medical Code(s): I10 - Essential (primary) hypertension (10) HLD (hyperlipidemia): Status: Acute Qualifiers: Hyperlipidemia type: mixed hyperlipidemia Qualified Code(s): E78.2 - Mixed hyperlipidemia Category: Medical Code(s): E78.5 - Hyperlipidemia, unspecified (11) Pulmonary hypertension: Status: Acute Category: Medical Code(s): I27.20 - Pulmonary hypertension, unspecified (12) Coronary artery disease: Status: Acute Qualifiers: Coronary Disease-Associated Artery/Lesion type: [place] artery [place] vs. transplanted heart: [place] heart Associated angina: with other forms of angina Qualified Code(s): I25.118 - Atherosclerotic heart disease of [place] coronary artery with other forms of angina pectoris Category: Medical Code(s): I25.10 - Atherosclerotic heart disease of [place] coronary artery without angina pectoris Plan 72-year-old female with complex past medical history, heart failure, respiratory failure, who presented with symptomatic bradycardia and hypotension. Also found to be in hypercapnic respiratory failure. Initiated on BiPAP and received calcium in the ER. Discussed case with ER physician, request admission for concern for beta-aliya overdose and need for further treatment with her hypercapnic respiratory failure. I agreed to admit for further management. Wore BiPAP overnight. Peers at baseline mentation and alertness this morning. Still bradycardic however. Cardiology consult placed for the morning. Further management pending evaluation. Will transition to CPAP tonight. Problems addressed as follows: Acute on chronic hypercapnic respiratory failure Chronic hypoxemic respiratory failure NARCISO CO2 narcosis -ABG normalized. pH 7.35, pCO2 48, pO2 78. Will trial CPAP this evening at home regimen. Repeat ABG in the morning. Remained stable, will continue CPAP, if becomes more hypercapnic, will consult pulmonology and consider switching to BiPAP. -Received antibiotics in the ER, low concern for pneumonia however; White count normal at 7.7. No indication to continue antibiotics. White cell count remained stable this morning 7.8. -Continue supplemental oxygen as needed, 35% while on CPAP, 3 L while awake and off cpap; Goal sats greater 90% -Patient to wear CPAP while napping or asleep. Repeat ABG in the morning Bradycardia Hypotension Atrial fibrillation -Concerning for beta-aliya overdose. Was switched from amiodarone to metoprolol within the past week. Holding metoprolol. Received 2 g calcium gluconate in the ER. Administered 4 mg glucagon. Monitor for improvement and heart rate on telemetry. -Blood pressure normal at this time - continue Eliquis stable the medical patient. -If heart rate improves, will consider resuming amiodarone -Cardiology consult Sunday Polypharmacy Chronic pain -Patient on multiple sedating medications for pain and anxiety -Holding antihistamines -On gabapentin 300 mg twice daily, holding at the time -Recently increased on trazodone from 100 to 150 mg nightly, will hold at this time -On hydrocodone, will continue 5 mg twice daily for severe breakthrough pain. Monitor for sedation and toxicity Hypothyroid: Levothyroxine 50 mcg daily. TSH 8 this morning. Will increase to 75 mcg daily Anxiety: Taking amitriptyline 10 mg nightly, BuSpar 10 mg 3 times a day, continue Paxil 40 mg nightly Diabetes: Continue Lantus 14 units nightly, sliding scale insulin with fingersticks ACHS, morning glucose 99 Class II obesity complicates all aspects of care Full code Diabetic diet Eliquis 5 mg twice daily
[2023-09-02] MEDS: humaLOG 100 UNITS/ML 10ML VIAL (SSI) SQ ×3 (11:53→20:29)
[2023-09-02] MEDS: HYDROCODONE/APAP 5/325 MG TABLET 1 TAB PO (11:54)
--- NOTE | 2023-09-02 15:15 | PC.NURSE ---
Pt is alert and oriented x4. She is currently on 3L NC w/O2 sats measuring >90%. She's been up to the chair since around 0930 and has tolerated well. HR has been 30's-40's. She has denied any complaints. Pull alarm and call light in place.
[2023-09-02 16:15] LABS: POC Glucose,Bedside 196 (70-110)
[2023-09-02 20:00] LABS: POC Glucose,Bedside 225 (70-110)
[2023-09-02] MEDS: INSULIN GLARGINE 100 UNITS/ML 3ML FLEXPEN 14 UNIT SQ (20:29)
[2023-09-02] MEDS: PANTOPRAZOLE 40MG TABLET 40 MG PO (20:30)
[2023-09-02] MEDS: ATORVASTATIN 40MG TABLET 40 MG PO (20:30)
[2023-09-02] MEDS: PARoxetine 20MG TABLET 40 MG PO (20:31)
[2023-09-03] VITALS (9 sets, daily range): BP systolic 102–113; BP diastolic 42–46; PULSE 39–80; RESP 14–22; TEMP 36.4–37.1; O2SAT 90–96; BMI 37.3
[2023-09-03] MEDS: HYDROCODONE/APAP 5/325 MG TABLET 1 TAB PO ×2 (01:28→13:18)
--- NOTE | 2023-09-03 05:14 | PC.NURSE ---
Pt is alert and oriented x4. She was on C-PAP until 299 and was placed back on 3.5 L O2 NC. She has remained >90%. Heart rate has remained in the mid to upper 40's throughout shift. Pt did complain of leg pain and was treated per MAR. She has no other complaints at this time, call light within reach.
[2023-09-03 05:57] LABS: Basophils # 0.1 K/mm3 (0-0.2); Basophils % 0.9 % (0.1-2.0); Eosinophils # 0.1 K/mm3 (0.0-0.4); Eosinophils % 1.4 % (0.1-12.0); Hematocrit 42.7 % (37.0-47.0); Hemoglobin 12.8 g/dL (12.2-16.2); Lymphocytes # 1.5 K/mm3 (0.7-4.5); Lymphocytes % 18.7 % (10-50); Mean Corpuscular HGB Conc 29.9 g/dL (31.8-35.4); Mean Corpuscular Hemoglobin 24.3 pg (27.0-31.2); Mean Corpuscular Volume 81.2 fl (81-99); Mean Platelet Volume 8.9 fl (7.4-10.4); Monocytes # 0.7 K/mm3 (0.1-1.0); Monocytes % 8.5 % (1.7-9.3); Neutrophils # 5.7 K/mm3 (1.8-7.8); Neutrophils % 70.5 % (37.0-80.0); Platelet Count 128 K/mm3 (142-424); Red Blood Count 5.25 M/mm3 (4.20-5.40); Red Cell Distribution Width 22.2 % (11.5-17.5); White Blood Count 8.1 K/mm3 (4.8-10.8)
[2023-09-03 06:07] LABS: Alanine Aminotransferase 22 U/L (12-78); Albumin Level 3.1 g/dl (3.5-5.0); Albumin/Globulin Ratio 1.1 (1.1-1.8); Alkaline Phosphatase 54 U/L (38-126); Anion Gap 6.7 mEq/L (5-15); Aspartate Amino Transferase 20 U/L (14-36); Bilirubin,Total 0.4 mg/dl (0.2-1.3); Blood Urea Nitrogen 19 mg/dl (7-17); Calcium 8.8 mg/dl (8.4-10.2); Carbon Dioxide 38 mmol/L (22.0-30.0); Chloride 95 mmol/L (98-107); Creatinine Clearance Estimated 80 mL/min (50-200); Estimated Glomerular Filt Rate 54 ml/min (>60); GFR (African American) 66 ML/MIN (>60); Globulin 2.7 g/dL (1.3-3.2); Glucose 165 mg/dl (74-100); Magnesium 1.9 mg/dl (1.6-2.3); Potassium 3.7 mmoL/L (3.5-5.1); Sodium 136 mmol/L (136-145); Total Protein,Serum 5.8 g/dl (6.3-8.2)
[2023-09-03] MEDS: FLUTICASONE/UMECLIDIN/VILANTER 100/62.5/25MCG INHALER 1 PUFF IH (06:20)
[2023-09-03] MEDS: IPRATROPIUM/ALBUTEROL 3 ML NEB IH ×2 (06:20→11:00)
[2023-09-03] MEDS: humaLOG 100 UNITS/ML 10ML VIAL (SSI) SQ ×2 (06:32→11:21)
[2023-09-03] MEDS: LEVOTHYROXINE 75MCG (0.075MG) TAB 75 MCG PO (06:33)
--- OUTSIDE RECORDS SUMMARY | 2023-09-03 07:05 | XMS_ITS | Clinical Summary ---
Author Organization [facility] Address [address] [place] [address] Phone Care Team Providers Care Medicaid Collection Specialist Name Role Phone Delfino Valdez MD [ ] Conditions or Problems Problem Name Problem Code Onset Date Status Entry Date Provider Comment Standard Description Annotate Chronic venous stasis disease 89928452 (SNOMED CT) Active 04/27 Adri Prabhakar Stasis dermatitis DM II with diabetic PVD 458688532 (SNOMED CT) Active 04/27 Adri Prabhakar Peripheral [...] II with peripheral vascular disorder, with gangrene 876093814 (SNOMED CT) Active 03/13 Sharyn W Peripheral circulatory disorder due to type 2 diabetes mellitus Skin tissue necrosis 87142609 (SNOMED CT) Inactive 03/13 Sharyn W Skin necrosis Abrasion, left lower leg, subsequent encounter S80.812D (ICD-10-CM) Inactive 03/13 Sharyn W Abrasion, left lower leg, subsequent encounter Cellulitis, leg, right 598813864 (SNOMED CT) Active 03/13 Adri Prabhakar Cellulitis of lower limb Skin tissue necrosis 23044718 (SNOMED CT) Removed 03/13 Adri Prabhakar Skin necrosis Cellulitis, leg, left 191089551 (SNOMED CT) Active 03/13 Adri Prabhakar Cellulitis of lower limb Abrasion, left lower leg, subsequent encounter S80.812D (ICD-10-CM) Removed 03/13 Adri Prabhakar Abrasion, left lower leg, subsequent encounter DM II with diabetic PVD 178229507 (SNOMED CT) Inactive 03/13 Adri Prabhakar Peripheral vascular disease DM, type II, poorly controlled E11.65 (ICD-10-CM) Active 03/13 Adri Prabhakar Type 2 diabetes mellitus with hyperglycemia Hx of falling 947695774 (SNOMED CT) Active 03/13 Adri Prabhakar History of fall Other obesity due to excess calories 858053935 (SNOMED CT) Active 03/13 Jenn Back Simple obesity Medications Medication Instructions Start Date Stop Date Generic Name NDC Provider DOXYCYCLINE HYCLATE 100 MG TABS Take one pill twice daily. DOXYCYCLINE HYCLATE [id number] Delfino Valdez MD DOXYCYCLINE MONOHYDRATE 100 MG TABS Take one pill twice daily. DOXYCYCLINE MONOHYDRATE 37133697497 Delfino Valdez MD DIAZEPAM GEL twice a day in the morning and before bed DIAZEPAM GEL 72790522468 Katie Elkins CELEXA 40 MG TABS Take 1 tablet by mouth daily at bedtime CITALOPRAM HYDROBROMIDE 33729803604 Katie Elkins HYDROCODONE-ACETAM INOPHEN 5-325 MG TABS prn HYDROCODONE-ACETA MINOPHEN 50722140353 Katie Elkins HYDROXYZINE HCL 50 MG TABS Take one (1) tablet by mouth three times a day HYDROXYZINE HCL 26307169851 Katie Elkins TIZANIDINE HCL 4 MG CAPS Take one (1) tablet by mouth twice a day prn TIZANIDINE HCL 35222803047 Katie Elkins FUROSEMIDE 40 MG TABS Take one (1) tablet by mouth three times a day FUROSEMIDE 66170414024 Katie Elkins ATORVASTATIN CALCIUM 80 MG TABS Take 1 tablet by mouth daily at bedtime ATORVASTATIN CALCIUM 17797210609 Katie Elkins HM MAGNESIUM 400 MG ORAL TABLET Take 1 tablet by mouth daily MAGNESIUM OXIDE 13131444894 Katie Elkins INVOKANA 100 MG TABS Take 1 tablet by mouth daily in the morning CANAGLIFLOZIN 16978963541 Katie Elkins METFORMIN HCL 1000 MG TABS Take one (1) tablet by mouth twice a day METFORMIN HCL 77845032875 Katie Elkins AMBIZINE 25 MG ORAL TABLET prn MECLIZINE HCL 56594053663 Katie K DICYCLOMINE HCL 10 MG CAPS prn DICYCLOMINE HCL 22326510446 Katie Elkins LISINOPRIL 10 MG TABS Take 1 tablet by mouth daily LISINOPRIL 71768212316 Katie K ASPIRIN 325 MG TABS ASPIRIN 26732311755 Katie K LANTUS SOLOSTAR 100 UNIT/ML SOPN 50 units at bedtime INSULIN GLARGINE 10649570285 Katie K VENTOLIN HFA 108 (90 Base) MCG/ACT AERS 2 puffs prn ALBUTEROL SULFATE 56560210246 Katie K SYMBICORT 160-4.5 MCG/ACT AERO 2 puffs twice daily prn BUDESONIDE-FORMOT SKYE FUMARATE 09198671573 Katie K AMITRIPTYLINE HCL 25 MG TABS Take 1 tablet by mouth daily at bedtime AMITRIPTYLINE HCL 61267335621 Katie Severo *NEEDS MED LIST UPDATE -SEE LIST* 04/03 *NEEDS MED LIST UPDATE -SEE LIST* Katie Elkins DAKINS SOLUTION DAKINS SOLN [phone] Andrew Elias *NEEDS MED LIST UPDATE -SEE LIST* 04/03 *NEEDS MED LIST UPDATE -SEE LIST* Andrew Elias DOXYCYCLINE HYCLATE 100 MG CAPS take 1 cap po BID DOXYCYCLINE HYCLATE 81464942282 Delfino Valdez MD ACETAMINOPHEN 325 MG TABS Take 2 tabs by mouth daily as needed 03/14 ACETAMINOPHEN 87998246074 Delfino Valdez MD BACTRIM DS 800-160 MG TABS Take one (1) tablet by mouth twice a day 03/14 SULFAMETHOXAZOLE- TRIMETHOPRIM 56683266458 Delfino Valdez MD ATORVASTATIN CALCIUM 20 MG TABS 1 tab by mouth qhs 03/14 ATORVASTATIN CALCIUM 86035208856 Delfino Valdez MD BUMETANIDE 1 MG TABS Take 2 tabs by mouth every 12 hours 03/14 BUMETANIDE 81333748325 Delfino Valdez MD DAKINS (1/4 STRENGTH) 0.125 % SOLN 1 application twice daily 03/14 DAKINS 50621465786 Delfino Valdez MD NOVOLOG 100 UNIT/ML SUBCUTANEOUS SOLUTION Inject subQ with meals 03/14 INSULIN ASPART 68574578840 Delfino Valdez MD KLOR-CON 10 10 MEQ CR-TABS Take 4 tabs by mouth daily 03/14 POTASSIUM CHLORIDE 86294995922 Delfino Valdez MD VITAMIN D2 50 MCG (1999 UT) TABS 50,000 one cap a month ERGOCALCIFEROL 49852014672 Jenn Back KLOR-CON 10 10 MEQ CR-TABS Take 4 tabs by mouth daily 2021/0 06/03 POTASSIUM CHLORIDE 27638573132 Jenn Back OXYCODONE HCL 5 MG TABS Take 2 tabs every 6 hours as needed OXYCODONE HCL 55955042690 Jenn Back OMEPRAZOLE 40 MG CPDR Take 1 tablet by mouth daily OMEPRAZOLE 03241592394 Jenn Back METHOCARBAMOL 500 MG TABS Take 0.5 tab by mouth every 6 hours METHOCARBAMOL 15565363454 Jenn Back MELATONIN 3 MG TABS Take 2 tabs by mouth qhs MELATONIN 80471488857 Jenn Back LIDOCAINE HCL 2 % EXTERNAL GEL Apply topically as needed LIDOCAINE HCL 48096993497 Jenn Back LEVOCETIRIZINE DIHYDROCHLORIDE 5 MG TABS Take 1 tab by mouth at night LEVOCETIRIZINE DIHYDROCHLORIDE 04467688033 Jenn Back NOVOLOG 100 UNIT/ML SUBCUTANEOUS SOLUTION Inject subQ with meals 05/06 INSULIN ASPART 10685669615 Jenn Back GABAPENTIN 300 MG CAPS Take one (1) tablet by mouth three times a day GABAPENTIN 01663890257 Jenn Back FOLIC ACID 1 MG TABS Take 1 tablet by mouth daily FOLIC ACID 19400190413 Jenn Back BREO ELLIPTA 100-25 MCG/ACT AEPB Inhale 1 puff daily FLUTICASONE FUROATE-VILANTERO L 29826008097 Jenn Back DULCOLAX STOOL SOFTENER 100 MG CAPS 1 supp as needed DOCUSATE SODIUM 18880704054 Jenn Back DAKINS (1/4 STRENGTH) 0.125 % SOLN 1 application twice daily 05/06 DAKINS 71914056114 Jenn Back CELEXA 20 MG TABS Take 2 tabs by mouth daily CITALOPRAM HYDROBROMIDE 39073887677 Jenn Back BUMETANIDE 1 MG TABS Take 2 tabs by mouth every 12 hours 05/06 BUMETANIDE 49495256242 Jenn Back BACTRIM DS 800-160 MG TABS Take one (1) tablet by mouth twice a day 05/06 SULFAMETHOXAZOLE- TRIMETHOPRIM 98079008349 Jenn Back ATORVASTATIN CALCIUM 20 MG TABS 1 tab by mouth qhs 207 ATORVASTATIN CALCIUM 48120814030 Jenn Back ADULT ASPIRIN EC LOW STRENGTH 81 MG ORAL TABLET DELAYED RELEASE Take 1 tablet by mouth daily ASPIRIN 55417834255 Jenn Back AMITRIPTYLINE HCL 25 MG TABS Take by mouth every hour 04/03 AMITRIPTYLINE HCL 28888537998 Jenn Back ALBUTEROL SULFATE (2.5 MG/3ML) 0.083% NEBU Inhale 3mL every 6 hours as needed ALBUTEROL SULFATE 43640797982 Jenn Back ACETAMINOPHEN 325 MG TABS Take 2 tabs by mouth daily as needed 03/14 ACETAMINOPHEN 34941650896 Jenn Back Medications Administered No information available. Allergies, Adverse Reactions, Alerts Allergy Name Reaction Description Start Date Severity Statu s Provider PENICILLIN Moderate Active Jenn Back KEFLEX Moderate Active Jenn Back Results Date Name Value Unit Range Flag Description Office Visit: Room 8 MEDS REVIEW Done Documenta tion of current medications (procedure) DIET DIABETES SOLUTIONS SPECIALIST yes Dietary management education, guidance, and counseling [...] Date CPT-Cooral Continue oral antibiotics 20 21/01/07 69707 Hepatitis C Atb: (ICD 10 Code: Z72.89) [...]
--- NOTE | 2023-09-03 07:36 | EXP.DC.SUM ---
General Admission date:: 09/01/23 Discharge date: 09/03/23 HPI HPI HPI: Ms. Sena is a 72-year-old female well-known to our facility with history of hypertension, hyperlipidemia, COPD on 3 L, A-fib on Eliquis, CHF, sleep apnea necessitating CPAP nightly. She lives at a long-term care facility. Presented to the ER via EMS due to lethargy and concern for abnormal heart rhythm. On arrival to the ER, patient was found to be hypotensive and bradycardic. Intermittently falling asleep when EMS picked her up. GCS of 14. Will open eyes to voice and respond appropriately and then falls off to sleep. History mainly obtained via EMS and nursing facility. Workup showing hypercapnia and sinus bradycardia with hypotension. Administered fluid bolus with improvement in her blood pressure. Administered 2 g of calcium gluconate for symptomatic management of her bradycardia. Review of meds showed transition to metoprolol within the past week and discontinuation of her amiodarone. Concern for beta-aliya overdose. Patient initiated on BiPAP. Having some improvement in her mentation. Given her respiratory failure and bradycardia, medicine consulted for admission and further management. Upon arrival to the floor, patient is wanting to eat. She is alert and oriented x 3 but easily dozes off. Will obtain ABG to evaluate response. Needs to continue to wear BiPAP. Stressed this to her much during his appointment as she fades back off to sleep. Remains bradycardic with improved blood pressure. Heart rate 35-40. Denies any chest pain, nausea, vomiting. Complains of general pain. Hospital Course Hospital Course Hospital Course: 72-year-old female with complex past medical history, heart failure, respiratory failure, who presented with symptomatic bradycardia and hypotension. Also found to be in hypercapnic respiratory failure. Initiated on BiPAP and received calcium in the ER. Discussed case with ER physician, request admission for concern for beta-aliya overdose and need for further treatment with her hypercapnic respiratory failure. I agreed to admit for further management. Wore BiPAP first night of admission, had improvement in her blood gas with normalization of her pH and improvement in her pCO2. Heart rate showed improvement. Cardiology and pulmonology were consulted and assisted with care. Patient was transition back to CPAP for night, showed increasing pCO2. At this time she needs permanent switch to BiPAP for support while asleep and at naps. Will also have her wear a 2-week loop recorder to evaluate for further episodes of A-fib. Close follow-up with subspecialist. Stable to return back to her nursing facility. Problems addressed as follows: Acute on chronic hypercapnic respiratory failure Chronic hypoxemic respiratory failure NARCISO CO2 narcosis -Initial presentation with respiratory acidosis. Patient was initiated on BiPAP. Showed improvement in his condition with normalization and mentation, respiratory acidosis, pH. Received empiric antibiotics in the ER, but low concern for pneumonia given normal white count, no cough or, no fever.antibiotics discontinued. Pulmonology was consulted to assist with care. In light of patient's hypercapnic respiratory failure, recommend transitioning her [facility] at [facility]. Recommend BiPAP at 8/18 with respiratory rate of 16. 3 L through BiPAP at night. Continue to work with [facility] to obtain most recent compliance report. Recommend following with pulmonology in 1 week for repeat ABG to determine BiPAP effectiveness and need for further adjustment. Continue Trelegy 100 inhaler along with DuoNebs every 6 hours as needed at the nursing facility. Patient is due for her 3-month follow-up CT in August 2023, will reschedule at her next clinic visit. Will need CT of her chest the same day. Medically stable at this time for discharge back to nursing facility. Continue supplemental oxygen during the day for goal sats greater 90%. Currently on 3 L. Sinus Bradycardia Hypotension, resolved Hx of Atrial fibrillation -Concerning for beta-aliya overdose. Was switched from amiodarone to metoprolol within the past week. Holding metoprolol. Received 2 g calcium gluconate in the ER. Administered 4 mg glucagon. Monitored on telemetry with improvement in heart rate. Heart rate moved from the 30s initially up to the high 40s low 50s consistently. Remained in sinus rhythm with occasional PVCs. Blood pressure normal at this time. Continued Eliquis twice daily for her history of A-fib. Cardiology recommends discharging back to nursing facility on 2-week event monitor. Will hold amiodarone and beta-aliya at this time. If becomes tachycardic or develops A-fib, will consider digoxin or restarting amiodarone. Follow-up with cardiology in the next 1 to 2 weeks. Patient chest pain-free. No concern for MS. Polypharmacy Chronic pain -Patient on multiple sedating medications for pain and anxiety. Recommend holding histamines. Okay to continue gabapentin 300 mg twice daily. Trazodone recently increased. Held during admission, patient slept fairly well during admission without any sleep aids. Recommend holding trazodone and amitriptyline at this time. Okay to use low-dose hydrocodone 5 mg twice daily as needed for severe breakthrough pain. Recommend monitoring for sedation. Would also recommend not giving gabapentin and hydrocodone at the same time, stagger doses. Hypothyroid: TSH 8 during admission, will increase levothyroxine to 75 mcg daily Anxiety: Taking amitriptyline 10 mg nightly, BuSpar 10 mg 3 times a day, continue Paxil 40 mg nightly Diabetes: Continue Lantus 14 units nightly, morning glucoses within normal range <180 Class II obesity complicates all aspects of care Total time spent on discharge 32 minutes in counseling, coordination with cardiology and pulmonology, documentation, chart review, and direct care with patient. Exam Data for Last 24 hours Vital signs and Labs for Last 24 Hours: Temp Pulse Resp BP Pulse Ox O2 Del Method O2 Flow Rate 98.8 F 41 L 22 102/42 L 93 L Nasal Cannula 3.5 09/03/23 04:00 09/03/23 06:21 09/03/23 06:00 09/03/23 06:00 09/03/23 06:00 09/03/23 06:45 09/03/23 06:45 FiO2 35 09/02/23 06:25 Laboratory Results - last 24 hr 09/02/23 10:58: POC Glucose 237 H 09/02/23 15:53: POC Glucose 196 H 09/02/23 19:52: POC Glucose 225 H 09/03/23 05:27: WBC 8.1, RBC 5.25, Hgb 12.8, Hct 42.7, MCV 81.2, MCH 24.3 L, MCHC 29.9 L, RDW 22.2 H, Plt Count 128 L, MPV 8.9, Neut % (Auto) 70.5, Lymph % (Auto) 18.7, [place] % (Auto) 8.5, Eos % (Auto) 1.4, Baso % (Auto) 0.9, Neut # (Auto) 5.7, Lymph # (Auto) 1.5, [place] # (Auto) 0.7, Eos # (Auto) 0.1, Baso # (Auto) 0.1, Sodium 136, Potassium 3.7, Chloride 95 L, Carbon Dioxide 38 H, Anion Gap 6.7, BUN 19 H, Creatinine 1.00, Estimated Creat Clear 80, Estimated GFR 54 L, Est GFR ( Amer) 66, Glucose 165 H D, Calcium 8.8, Magnesium 1.9, Total Bilirubin 0.4, AST 20, ALT 22, Alkaline Phosphatase 54, Total Protein 5.8 L, Albumin 3.1 L, Globulin 2.7, Albumin/Globulin Ratio 1.1 I & O for Last 24 hours: Intake & Output 08/31/23 09/01/23 09/02/23 09/03/23 23:59 23:59 23:59 23:59 Intake Total 630 / 1220 1730 / 2080 350 / 350 Output Total 0 / 200 2050 / 3350 1800 / 1800 Balance 630 / 1020 -320 / -1270 -1450 / -1450 Weight 101.151 kg 101.151 kg 99.053 kg Microbiology Reports for the Last 24 Hours: Microbiology 09/01/23 12:42 Blood Blood Culture - Preliminary NO GROWTH AFTER 24 HOURS 09/01/23 12:42 Blood Blood Culture - Preliminary NO GROWTH AFTER 24 HOURS Constitutional Constitutional: no acute distress, obese, chronically ill appearing and cooperative *Routine HEENT Exam Head: Present normocephalic Eye: Present EOMI and PERRL ENT: Present mucous membranes moist *Routine Neck Exam Neck: Present supple; Absent lymphadenopathy *Routine Respiratory Exam Respiratory: Present prolonged expiratory phase and crackles (minimal in bases); Absent rhonchi or wheezes *Routine Cardiovascular Exam Cardiovascular: Present bradycardia *Routine Abdominal Exam Abdominal: Present soft and normoactive bowel sounds; Absent tenderness *Routine Rectal Exam Patient deferred: visual exam *Routine Exam Patient deferred: external exam *Routine Extremities Exam Extremities: Present edema (1+ to knees); Absent cyanosis or clubbing *Routine Skin Exam Skin: Present warm; Absent rash Comments: Chronic stasis dermatitis in the extremities *Routine Neurological Exam Neurological: Present alert, oriented X3 and moving all extremities; Absent altered mental status Results Data Completed and Pending Labs on day of discharge: Labs from last 24 hours 09/03/23 09/02/23 09/02/23 05:27 19:52 15:53 WBC 8.1 RBC 5.25 Hgb 12.8 Hct 42.7 MCV 81.2 MCH 24.3 L MCHC 29.9 L RDW 22.2 H Plt Count 128 L MPV 8.9 Neut % (Auto) 70.5 Lymph % (Auto) 18.7 [place] % (Auto) 8.5 Eos % (Auto) 1.4 Baso % (Auto) 0.9 Neut # (Auto) 5.7 Lymph # (Auto) 1.5 [place] # (Auto) 0.7 Eos # (Auto) 0.1 Baso # (Auto) 0.1 Sodium 136 Potassium 3.7 Chloride 95 L Carbon Dioxide 38 H Anion Gap 6.7 BUN 19 H Creatinine 1.00 Estimated Creat Clear 80 Estimated GFR 54 L Est GFR ( Amer) 66 Glucose 165 H D POC Glucose 225 H 196 H Calcium 8.8 Magnesium 1.9 Total Bilirubin 0.4 AST 20 ALT 22 Alkaline Phosphatase 54 Total Protein 5.8 L Albumin 3.1 L Globulin 2.7 Albumin/Globulin Ratio 1.1 09/02/23 10:58 WBC RBC Hgb Hct MCV MCH MCHC RDW Plt Count MPV Neut % (Auto) Lymph % (Auto) [place] % (Auto) Eos % (Auto) Baso % (Auto) Neut # (Auto) Lymph # (Auto) [place] # (Auto) Eos # (Auto) Baso # (Auto) Sodium Potassium Chloride Carbon Dioxide Anion Gap BUN Creatinine Estimated Creat Clear Estimated GFR Est GFR ( Amer) Glucose POC Glucose 237 H Calcium Magnesium Total Bilirubin AST ALT Alkaline Phosphatase Total Protein Albumin Globulin Albumin/Globulin Ratio Preliminary micro results at discharge 09/01/23 12:42 Blood Culture - Preliminary Blood NO GROWTH AFTER 24 HOURS 09/01/23 12:42 Blood Culture - Preliminary Blood NO GROWTH AFTER 24 HOURS DS: Diagnosis Discharge Diagnosis (1) Acute hypercapnic respiratory failure: Status: Acute Code(s): J96.02 - Acute respiratory failure with hypercapnia (2) CO2 narcosis: Status: Acute Code(s): R06.89 - Other abnormalities of breathing (3) Bradycardia: Status: Acute Code(s): R00.1 - Bradycardia, unspecified (4) Accidental overdose: Status: Acute Code(s): T50.901A - Poisoning by unspecified drugs, medicaments and biological substances, accidental (unintentional), initial encounter (5) Acute on chronic respiratory failure with hypoxemia: Status: Acute Code(s): J96.21 - Acute and chronic respiratory failure with hypoxia (6) NARCISO (obstructive sleep apnea): Status: Chronic Code(s): G47.33 - Obstructive sleep apnea (adult) (pediatric) Problem details: Active patient at [facility] (7) Atrial fibrillation: Status: Acute Code(s): I48.91 - Unspecified atrial fibrillation Qualifiers: Atrial fibrillation type: unspecified chronic Qualified Code(s): I48.20 - Chronic atrial fibrillation, unspecified (8) Diabetes mellitus, type 2: Status: Acute Code(s): E11.9 - Type 2 diabetes mellitus without complications Qualifiers: Diabetes mellitus complication status: with other specified complication Diabetes mellitus armature straightener insulin use: with long-term use Qualified Code(s): E11.69 - Type 2 diabetes mellitus with other specified complication; Z79.4 - senior living (current) use of insulin (9) HTN (hypertension): Status: Acute Code(s): I10 - Essential (primary) hypertension Qualifiers: Hypertension type: primary hypertension Qualified Code(s): I10 - Essential (primary) hypertension (10) HLD (hyperlipidemia): Status: Acute Code(s): E78.5 - Hyperlipidemia, unspecified Qualifiers: Hyperlipidemia type: mixed hyperlipidemia Qualified Code(s): E78.2 - Mixed hyperlipidemia (11) Pulmonary hypertension: Status: Acute Code(s): I27.20 - Pulmonary hypertension, unspecified (12) Coronary artery disease: Status: Acute Code(s): I25.10 - Atherosclerotic heart disease of [place] coronary artery without angina pectoris Qualifiers: Associated angina: with other forms of angina Coronary Disease-Associated Artery/Lesion type: [place] artery [place] vs. transplanted heart: [place] heart Qualified Code(s): I25.118 - Atherosclerotic heart disease of [place] coronary artery with other forms of angina pectoris Meds Home Medications and Allergies Home Medications ?Medication ?Instructions ?Recorded ?Confirmed ?Type ergocalciferol (vitamin D2) 1,250 1,250 mcg PO DIRECTED 08/12/20 09/02/23 History mcg (50,000 unit) capsule albuterol sulfate 90 mcg/actuation 2 puff inhalation Q4HP PRN 12/18/22 09/02/23 History aerosol inhaler Shortness Of Breath Or Wheezing apixaban 5 mg tablet (Eliquis) 5 mg PO BID 12/18/22 09/02/23 History docusate sodium 100 mg tablet 100 mg PO BID 12/18/22 09/02/23 History ferrous sulfate 324 mg (65 mg 324 mg PO DAILY 12/18/22 09/02/23 History iron) tablet,delayed release icosapent ethyl 1 gram capsule 1 g PO BID 12/18/22 09/02/23 History (Vascepa) insulin lispro 100 unit/mL 0 sliding scale dose SQ ACHS 12/18/22 09/02/23 History subcutaneous pen Diabetes multivitamin 1 tab PO DAILY 12/18/22 09/02/23 History nitroglycerin 0.4 mg sublingual 0.4 mg sublingual Q5MINP PRN Chest 12/18/22 09/02/23 History tablet Pain omeprazole 40 mg capsule,delayed 40 mg PO HS 12/18/22 09/02/23 History release acetaminophen 500 mg tablet 500 mg PO AC 12/19/22 09/02/23 History albuterol sulfate 2.5 mg/3 mL 2.5 mg inhalation Q4HP PRN 12/19/22 09/02/23 History (0.083 %) solution for nebulization shortness of air or wheezing gabapentin 300 mg capsule 300 mg PO BID 12/19/22 09/02/23 History hydrocodone 5 mg-acetaminophen 325 1 tab PO Q12HP PRN Moderate Pain 01/12/23 09/02/23 History mg tablet (Scale Score 5-6) clopidogrel 75 mg tablet 75 mg PO DAILY 03/18/23 09/02/23 History clobetasol 0.05 % shampoo 1 applic topical HS 04/19/23 09/02/23 History empagliflozin 10 mg tablet 10 mg PO DAILY 04/19/23 09/02/23 History (Jardiance) insulin glargine 100 unit/mL (3 14 unit SQ HS Diabetes 04/19/23 09/02/23 History mL) subcutaneous pen (Lantus Solostar U-100 Insulin) levothyroxine 50 mcg tablet 50 mcg PO DAILYDM 04/19/23 09/02/23 History miconazole nitrate 2 % topical 1 applic topical BID 04/19/23 09/02/23 History cream ondansetron 4 mg disintegrating 4 mg PO Q6HP PRN Nausea And 04/19/23 09/02/23 History tablet Vomiting bumetanide 2 mg tablet 2 mg PO BID #60 tabs 04/30/23 09/02/23 Rx buspirone 10 mg tablet 10 mg PO TID 07/04/23 09/02/23 History cetirizine 10 mg tablet 10 mg PO DAILY 08/07/23 09/02/23 History fluticasone fur. 100 mcg-umeclid 1 inh inhalation DAILY 08/13/23 09/02/23 History 62.5 mcg-vilant 25 mcg inhalat.powder (Trelegy Ellipta) paroxetine HCl 40 mg tablet (Paxil) 40 mg PO HS 08/13/23 09/02/23 History rosuvastatin 10 mg tablet 10 mg PO HS 08/13/23 09/02/23 History spironolactone 50 mg tablet 50 mg PO DAILY 08/13/23 09/02/23 History polyethylene glycol 3350 17 17 g PO DAILY 08/14/23 09/02/23 History gram/dose oral powder metoprolol tartrate 25 mg tablet 12.5 mg (1/2 x 25 mg) PO BID #60 08/29/23 09/02/23 Rx tabs New Prescriptions to Start Prescriptions: Allergies Allergy/AdvReac Type Severity Reaction Status Date / Time cephalexin Allergy Verified 08/29/23 13:23 Penicillins Allergy Verified 08/29/23 13:23 Discharge Plan Disposition Patient Disposition: er Intermediate Care Fac Condition: Fair Discharge Order Discharge Orders: Discharge Order (Routine); Ordered 09/03/23 Ordered By: Lamin Hemphill Follow up Plan Follow up with: Isha Paredes MD [Physician] - 1 week Ziggy Hitchcock MD [Staff Physician] - 09/11/23 3:00 pm Prescriptions/Medication Reconciliation: Continued bumetanide 2 mg tablet 2 mg PO BID Qty: 60 3RF metoprolol tartrate 25 mg tablet 12.5 mg PO BID Qty: 60 3RF ergocalciferol (vitamin D2) 1,250 mcg (50,000 unit) capsule 1,250 mcg PO DIRECTED Patient Comments: TAKE 1 CAPSULE BY MOUTH EVERY TWO WEEKS (TWICE A MONTH) Rx Instructions: EVERY OTHER WEEK cetirizine 10 mg tablet 10 mg PO DAILY albuterol sulfate 90 mcg/actuation HFA aerosol inhaler 2 puff INHALATION Q4HP PRN (Reason: Shortness Of Breath Or Wheezing) multivitamin Tablet 1 tab PO DAILY omeprazole 40 mg Capsule,Delayed Release(Dr/Ec) 40 mg PO HS icosapent ethyl [Vascepa] 1 gram Capsule 1 g PO BID docusate sodium 100 mg Tablet 100 mg PO BID ferrous sulfate 324 mg (65 mg iron) Tablet,Delayed Release (Dr/Ec) 324 mg PO DAILY Eliquis 5 mg Tablet 5 mg PO BID nitroglycerin 0.4 mg Tablet, Sublingual 0.4 mg SUBLINGUAL Q5MINP PRN (Reason: Chest Pain) Rx Instructions: do not exceed 3 doses per episode insulin lispro 100 unit/mL Insulin Pen 0 sliding scale dose SQ ACHS Rx Instructions: 101-150 3 UNITS 151-200 4 UNITS 201-250 6 UNITS 251-300 9 UNITS 301-350 12 UNITS 351-400 15 UNITS albuterol sulfate 2.5 mg /3 mL (0.083 %) Solution For Nebulization 2.5 mg inhalation Q4HP PRN (Reason: shortness of air or wheezing) acetaminophen 500 mg Tablet 500 mg PO AC gabapentin 300 mg Capsule 300 mg PO BID buspirone 10 mg tablet 10 mg PO TID hydrocodone-acetaminophen 5-325 mg tablet 1 tab PO Q12HP PRN (Reason: Moderate Pain (Scale Score 5-6)) paroxetine HCl [Paxil] 40 mg Tablet 40 mg PO HS spironolactone 50 mg tablet 50 mg PO DAILY rosuvastatin 10 mg tablet 10 mg PO HS Trelegy Ellipta 100-62.5-25 mcg blister with device 1 inh INHALATION DAILY polyethylene glycol 3350 17 gram/dose powder 17 g PO DAILY clopidogrel 75 mg Tablet 75 mg PO DAILY miconazole nitrate 2 % Cream 1 applic TOPICAL BID clobetasol 0.05 % Shampoo 1 applic TOPICAL HS levothyroxine 50 mcg Tablet 50 mcg PO DAILYDM ondansetron 4 mg Tablet,Disintegrating 4 mg PO Q6HP PRN (Reason: Nausea And Vomiting) insulin glargine [Lantus Solostar U-100 Insulin] 100 unit/mL (3 mL) Insulin Pen 14 unit SQ HS Jardiance 10 mg tablet 10 mg PO DAILY Discontinued trazodone 150 mg tablet 150 mg PO HS Other Ambulatory Orders: Arterial Blood Gas (Routine) Timeframe: 1 Week Facility: [facility] - Location: Respiratory Therapy Ordered By: Isha Paredes CT chest wo con (Routine) Timeframe: 1 Week Facility: [facility] - Location: Radiology Ordered By: Isha Paredes Problem Reconciliation Problems Reviewed?: Yes Patient Discharge Instructions ACTIVITY: Continue current activity DIET: continue same diet Patient Instructions: DI for Respiratory Failure, DI for Bradycardia Print Language: Ukrainian Providers Primary Care Provider: Provider,Referral Admit Provider: Lamin Hemphill Attending Provider: Lamin Hemphill
[2023-09-03 07:42] LABS: ABG Base Excess 10.8 mmol/L (-2.4-2.3); ABG Oxygen Saturation 93 % (90-100); ABG PH 7.38 mmol/L (7.35-7.45); ABG PO2 70.2 mmhg (80-100); ABG TCO2 37.9 mmhg (23-27)
--- NOTE | 2023-09-03 08:02 | SW/DCPLANNER ---
Addendum entered by Elizabeth Ward 09/03/23 13:35: I have updated Lauryn barnes/ [facility] that patient will return today. Addendum entered by Elizabeth Ward 09/03/23 08:19: Updated patient information has been faxed to Lauryn barnes/ [facility]. Original Note: This patient currently resides at [facility] level of care. I will continue to follow up w/ Lauryn at [facility] until patient is medically stable for discharge. Discharge date is unknown at this time.
--- NOTE | 2023-09-03 08:34 | EXP.CARD.CON ---
History of Present Illness History of Present Illness Consult date: 09/03/23 Requesting physician: Lamin Hemphill Chief complaint: lethargy History of present illness: This is a 72-year-old white female with past medical history of coronary artery disease with GARFIELD x 2 to LAD and RCA in March 2023, hypertension, hyperlipidemia, paroxysmal atrial fibrillation on Eliquis status post cardioversion April 2023, chronic hypoxic respiratory failure requiring continuous oxygen therapy, pulmonary hypertension, history of heart failure with improved ejection fraction with recovered EF of 55% in Mar 2023, diabetes mellitus, chronic lower extremity edema and COPD presented to emergency department on 09/01/2023 with complaints of lethargy per skilled nursing staff. When skilled nursing staff checked vitals patient was noted to be hypotensive and bradycardic. Of note, last week cardiology clinic stopped amiodarone and started patient on low dose beta aliya for afib. The same week the patient's dose of Trazadone was increased as well. Labs are as follow: Creatinine 1.1, BUN 21, VBG respiratory acidosis with a pH of 7.29, CO2 77, oxygen normal at 50.9 and bicarb of 36. Chest x-ray was negative for acute cardiopulmonary process. Patient was given 2 g of calcium gluconate for symptomatic bradycardia and started on BiPAP. Patient was admitted for beta-aliya induced bradycardia and hypercapnic respiratory failure. Since admission patient has become more alert and oriented. Patient remains in normal sinus rhythm with a heart rate in the 40s. [facility] Disclaimer: The information contained in this section may have been updated after the patient was seen, as this information can be updated by other users. Medical History Rotator cuff arthropathy of right shoulder Acute anterior epistaxis Chronic hypoxemic respiratory failure Nodule of left lung Heart attack Encounter for screening for malignant neoplasm of lung COPD mixed type History of smoking 30 or more pack years Dyspnea Bilateral hearing loss due to cerumen impaction Encounter for removal of nasal packing CAD in [place] artery Cardiomyopathy Non-STEMI (non-ST elevated myocardial infarction) Right ventricular dilation Coronary artery disease HFrEF (heart failure with reduced ejection fraction) Pneumonia Diabetes mellitus, type 2 Iron deficiency anemia Pulmonary hypertension Osteoporosis Major depressive disorder Heart failure Depression Lymphedema Insomnia Class 2 obesity due to excess calories with body mass index (BMI) of 39.0 to 39.9 in adult Fibromyalgia Congestive heart failure Atrial fibrillation Anxiety HTN (hypertension) HLD (hyperlipidemia) COPD (chronic obstructive pulmonary disease) BMI 30.0-30.9,adult Osteoarthritis Callus of foot Paresthesia of both lower extremities Onychodystrophy Onychomycosis Diabetic foot Surgical History History of coronary artery stent placement History of bladder surgery H/O: hysterectomy H/O hernia repair Family History Other Diabetes Hyperlipidemia Hypertension No significant family history Social History Smoking Status: Never smoker alcohol intake: never substance use type: denies use current occupational status: retired and disabled Travel in the last 8 weeks: None housing: skilled nursing lives independently: No skilled nursing: Yes caffeine: Yes Review of Systems Review of Systems Review of systems:: pertinent systems reviewed and negative unless documented below *Cardiovascular Cardiovascular: Reports dyspnea *Respiratory Respiratory: Reports dyspnea Exam Data for Last 24 hours Vital signs and Labs for Last 24 Hours: Temp Pulse Resp BP Pulse Ox O2 Del Method O2 Flow Rate 98 F 45 L 18 103/44 L 90 L Nasal Cannula 3 09/03/23 07:43 09/03/23 08:00 09/03/23 08:00 09/03/23 08:00 09/03/23 08:00 09/03/23 08:00 09/03/23 08:00 FiO2 35 09/02/23 06:25 Laboratory Results - last 24 hr 09/02/23 10:58: POC Glucose 237 H 09/02/23 15:53: POC Glucose 196 H 09/02/23 19:52: POC Glucose 225 H 09/03/23 05:27: WBC 8.1, RBC 5.25, Hgb 12.8, Hct 42.7, MCV 81.2, MCH 24.3 L, MCHC 29.9 L, RDW 22.2 H, Plt Count 128 L, MPV 8.9, Neut % (Auto) 70.5, Lymph % (Auto) 18.7, [place] % (Auto) 8.5, Eos % (Auto) 1.4, Baso % (Auto) 0.9, Neut # (Auto) 5.7, Lymph # (Auto) 1.5, [place] # (Auto) 0.7, Eos # (Auto) 0.1, Baso # (Auto) 0.1, Sodium 136, Potassium 3.7, Chloride 95 L, Carbon Dioxide 38 H, Anion Gap 6.7, BUN 19 H, Creatinine 1.00, Estimated Creat Clear 80, Estimated GFR 54 L, Est GFR ( Amer) 66, Glucose 165 H D, Calcium 8.8, Magnesium 1.9, Total Bilirubin 0.4, AST 20, ALT 22, Alkaline Phosphatase 54, Total Protein 5.8 L, Albumin 3.1 L, Globulin 2.7, Albumin/Globulin Ratio 1.1 09/03/23 07:24: ABG pH 7.38, ABG pCO2 63.0 H, ABG pO2 70.2 L, ABG HCO3 36.0 H, ABG Total CO2 37.9 H, ABG O2 Saturation 93, ABG Base Excess 10.8 H I & O for Last 24 hours: Intake & Output 08/31/23 09/01/23 09/02/23 09/03/23 23:59 23:59 23:59 23:59 Intake Total 630 / 1220 1730 / 2080 350 / 350 Output Total 0 / 200 2050 / 3350 1800 / 1800 Balance 630 / 1020 -320 / -1270 -1450 / -1450 Weight 223 lb 222 lb 15.996 oz 218 lb 6 oz Microbiology Reports for the Last 24 Hours: Microbiology 09/01/23 12:42 Blood Blood Culture - Preliminary NO GROWTH AFTER 24 HOURS 09/01/23 12:42 Blood Blood Culture - Preliminary NO GROWTH AFTER 24 HOURS Constitutional Constitutional: no acute distress *Routine Respiratory Exam Respiratory: Present CTA bilaterally and symmetric chest movement *Routine Cardiovascular Exam Cardiovascular: Present RRR, Normal S1 and Normal S2 *Routine Abdominal Exam Abdominal: Present soft and normoactive bowel sounds; Absent tenderness *Routine Extremities Exam Extremities: Present full ROM and normal capillary refill; Absent edema *Routine Skin Exam Skin: Present intact, dry and warm Detailed Neck Exam: Thyroids Thyroid: Absent bruit Meds Home Medications and Allergies Home Medications ?Medication ?Instructions ?Recorded ?Confirmed ?Type ergocalciferol (vitamin D2) 1,250 1,250 mcg PO DIRECTED 08/12/20 09/02/23 History mcg (50,000 unit) capsule albuterol sulfate 90 mcg/actuation 2 puff inhalation Q4HP PRN 12/18/22 09/02/23 History aerosol inhaler Shortness Of Breath Or Wheezing apixaban 5 mg tablet (Eliquis) 5 mg PO BID 12/18/22 09/02/23 History docusate sodium 100 mg tablet 100 mg PO BID 12/18/22 09/02/23 History ferrous sulfate 324 mg (65 mg 324 mg PO DAILY 12/18/22 09/02/23 History iron) tablet,delayed release icosapent ethyl 1 gram capsule 1 g PO BID 12/18/22 09/02/23 History (Vascepa) insulin lispro 100 unit/mL 0 sliding scale dose SQ ACHS 12/18/22 09/02/23 History subcutaneous pen Diabetes multivitamin 1 tab PO DAILY 12/18/22 09/02/23 History nitroglycerin 0.4 mg sublingual 0.4 mg sublingual Q5MINP PRN Chest 12/18/22 09/02/23 History tablet Pain omeprazole 40 mg capsule,delayed 40 mg PO HS 12/18/22 09/02/23 History release acetaminophen 500 mg tablet 500 mg PO AC 12/19/22 09/02/23 History albuterol sulfate 2.5 mg/3 mL 2.5 mg inhalation Q4HP PRN 12/19/22 09/02/23 History (0.083 %) solution for nebulization shortness of air or wheezing gabapentin 300 mg capsule 300 mg PO BID 12/19/22 09/02/23 History hydrocodone 5 mg-acetaminophen 325 1 tab PO Q12HP PRN Moderate Pain 01/12/23 09/02/23 History mg tablet (Scale Score 5-6) clopidogrel 75 mg tablet 75 mg PO DAILY 03/18/23 09/02/23 History clobetasol 0.05 % shampoo 1 applic topical HS 04/19/23 09/02/23 History empagliflozin 10 mg tablet 10 mg PO DAILY 04/19/23 09/02/23 History (Jardiance) insulin glargine 100 unit/mL (3 14 unit SQ HS Diabetes 04/19/23 09/02/23 History mL) subcutaneous pen (Lantus Solostar U-100 Insulin) levothyroxine 50 mcg tablet 50 mcg PO DAILYDM 04/19/23 09/02/23 History miconazole nitrate 2 % topical 1 applic topical BID 04/19/23 09/02/23 History cream ondansetron 4 mg disintegrating 4 mg PO Q6HP PRN Nausea And 04/19/23 09/02/23 History tablet Vomiting bumetanide 2 mg tablet 2 mg PO BID #60 tabs 04/30/23 09/02/23 Rx buspirone 10 mg tablet 10 mg PO TID 07/04/23 09/02/23 History cetirizine 10 mg tablet 10 mg PO DAILY 08/07/23 09/02/23 History fluticasone fur. 100 mcg-umeclid 1 inh inhalation DAILY 08/13/23 09/02/23 History 62.5 mcg-vilant 25 mcg inhalat.powder (Trelegy Ellipta) paroxetine HCl 40 mg tablet (Paxil) 40 mg PO HS 08/13/23 09/02/23 History rosuvastatin 10 mg tablet 10 mg PO HS 08/13/23 09/02/23 History spironolactone 50 mg tablet 50 mg PO DAILY 08/13/23 09/02/23 History polyethylene glycol 3350 17 17 g PO DAILY 08/14/23 09/02/23 History gram/dose oral powder metoprolol tartrate 25 mg tablet 12.5 mg (1/2 x 25 mg) PO BID #60 08/29/23 09/02/23 Rx tabs trazodone 150 mg tablet 150 mg PO HS 08/29/23 09/02/23 History New Prescriptions to Start Prescriptions: Allergies Allergy/AdvReac Type Severity Reaction Status Date / Time cephalexin Allergy Verified 08/29/23 13:23 Penicillins Allergy Verified 08/29/23 13:23 Assessment and Plan *Assessment and plan (1) Bradycardia: Status: Acute Category: Medical Code(s): R00.1 - Bradycardia, unspecified (2) Acute hypercapnic respiratory failure: Status: Acute Category: Medical Code(s): J96.02 - Acute respiratory failure with hypercapnia (3) HLD (hyperlipidemia): Status: Acute Qualifiers: Hyperlipidemia type: mixed hyperlipidemia Qualified Code(s): E78.2 - Mixed hyperlipidemia Category: Medical Code(s): E78.5 - Hyperlipidemia, unspecified (4) Coronary artery disease: Status: Acute Qualifiers: Associated angina: with other forms of angina Coronary Disease-Associated Artery/Lesion type: [place] artery [place] vs. transplanted heart: [place] heart Qualified Code(s): I25.118 - Atherosclerotic heart disease of [place] coronary artery with other forms of angina pectoris Category: Medical Code(s): I25.10 - Atherosclerotic heart disease of [place] coronary artery without angina pectoris (5) Accidental overdose: Status: Acute Category: Medical Code(s): T50.901A - Poisoning by unspecified drugs, medicaments and biological substances, accidental (unintentional), initial encounter (6) Atrial fibrillation: Status: Acute Qualifiers: Atrial fibrillation type: unspecified chronic Qualified Code(s): I48.20 - Chronic atrial fibrillation, unspecified Category: Medical Code(s): I48.91 - Unspecified atrial fibrillation Plan Symptomatic bradycardia/hypotension Hx of PAF History of hypothyroidism EKG remains NSR BB stopped on admission and patient given calcium gluconate Amiodarone recently stopped due to underlying pulmonary disease Heart rate improved and currently in the 40s-patient currently asymptomatic Continue Eliquis DC patient home in a 2-week event monitor If patient becomes tachycardic or develops A-fib will consider digoxin or restarting amiodarone Polysubstance with trazodone, gabapentin, and Lortab should be noted. TSH 8-primary service is adjusting levothyroxine History of coronary artery disease GARFIELD x 2 to LAD and RCA March 2023 Continue Plavix and statin. No beta-aliya due to bradycardia. History of heart failure with improved ejection fraction Ejection fraction improved to 50-55 percent April 2023 Continue Bumex 2 mg p.o. twice daily, Aldactone 2 mg p.o. daily and Jardiance. BP too low for GINGER or ARB. Acute on chronic hypercapnic respiratory failure Defer to primary service and pulmonology CV summary 09/03/2023: Patient is CV stable for discharge home. Please send patient home in a 2-week event monitor for further evaluation for bradycardia and A-fib. Please continue below listed medications and have patient follow-up in cardiology clinic in 1 week for reevaluation. Cardiac meds for discharge: Eliquis 5 mg p.o. twice daily Plavix 75 mg p.o. daily Atorvastatin 40 mg p.o. daily Bumex 2 mg p.o. twice daily Jardiance 10 mg p.o. daily Aldactone 50 milligrams p.o. daily Protonix 40 mg p.o. daily
[2023-09-03] MEDS: BUMETANIDE 1MG/4ML VIAL 1 MG IV (09:16)
[2023-09-03] MEDS: DOCUSATE SODIUM 100 MG CAPSULE PO (09:16)
[2023-09-03] MEDS: EMPAGLIFLOZIN 10MG TABLET 10 MG PO (09:16)
[2023-09-03] MEDS: BUMETANIDE 1 MG TABLET 2 MG PO (09:16)
[2023-09-03] MEDS: BUSPIRONE HCL 10 MG TABLET PO ×2 (09:16→12:40)
[2023-09-03] MEDS: APIXABAN 5MG TABLET 5 MG PO (09:16)
[2023-09-03] MEDS: SPIRONOLACTONE 25MG TABLET 50 MG PO (09:16)
[2023-09-03] MEDS: GABAPENTIN 300MG CAPSULE 300 MG PO (09:16)
[2023-09-03] MEDS: CLOPIDOGREL 75MG TAB 75 MG PO (09:16)
--- NOTE | 2023-09-03 09:41 | P.CONS_ITS ---
History of Present Illness History of present illness: Ms. Sena is a 72-year-old female severe COPD chronic hypoxic hypercarbic respiratory failure baseline 2 L nasal oxygen supplementation on a part of CPAP presented to ER with worsening mentation and hypotension and bradycardia. [facility] Disclaimer: The information contained in this section may have been updated after the patient was seen, as this information can be updated by other users. Medical History (Updated 09/03/23 @ 11:51 by Isha Paredes MD) Lung nodule Rotator cuff arthropathy of right shoulder Acute anterior epistaxis Chronic hypoxemic respiratory failure Nodule of left lung Heart attack Encounter for screening for malignant neoplasm of lung COPD mixed type History of smoking 30 or more pack years Dyspnea Bilateral hearing loss due to cerumen impaction Encounter for removal of nasal packing CAD in [place] artery Cardiomyopathy Non-STEMI (non-ST elevated myocardial infarction) Right ventricular dilation Coronary artery disease HFrEF (heart failure with reduced ejection fraction) Pneumonia Diabetes mellitus, type 2 Iron deficiency anemia Pulmonary hypertension Osteoporosis Major depressive disorder Heart failure Depression Lymphedema Insomnia Class 2 obesity due to excess calories with body mass index (BMI) of 39.0 to 39.9 in adult Fibromyalgia Congestive heart failure Atrial fibrillation Anxiety HTN (hypertension) HLD (hyperlipidemia) COPD (chronic obstructive pulmonary disease) BMI 30.0-30.9,adult Osteoarthritis Callus of foot Paresthesia of both lower extremities Onychodystrophy Onychomycosis Diabetic foot Surgical History History of coronary artery stent placement History of bladder surgery H/O: hysterectomy H/O hernia repair Family History Other Diabetes Hyperlipidemia Hypertension No significant family history Social History Smoking Status: Never smoker alcohol intake: never substance use type: denies use current occupational status: retired and disabled Travel in the last 8 weeks: None housing: senior care lives independently: No senior care: Yes caffeine: Yes Review of Systems Constitutional Constitutional: Reports anorexia, Reports body ache(s) and Reports fatigue Eyes Eyes: Denies eye discharge, Denies dry eyes, Denies irritation and Denies itchy eyes ENT Ears, Nose, Mouth, and Throat: Denies epistaxis, Denies facial pain, Denies lip swelling and Denies throat swelling *Cardiovascular Cardiovascular: Reports dyspnea, Reports dyspnea on exertion and Reports slow heart rate *Respiratory Respiratory: Denies change in phlegm color, Reports chest congestion, Reports cough, Reports dyspnea, Reports dyspnea on exertion, Denies excessive phlegm production, Denies hemoptysis, Denies pain on inspiration, Denies pain with cough and Denies wheezing *Gastrointestinal Gastrointestinal: Denies abdominal pain, Denies belching and Denies cramping *Musculoskeletal Musculoskeletal: Reports back pain, Reports myalgias and Reports other (No small joint swelling or Pain) Psychiatric Psychiatric: Denies homicidal ideation and Denies suicidal ideation Endocrine Endocrine: Reports fatigue and Denies heat intolerance Hematologic/Lymphatic Hematologic/Lymphatic: Denies easy bleeding and Denies lymphadenopathy Allergic/Immunologic Allergic/Immunologic: Denies itchy eyes, Denies lip swelling, Denies throat swelling and Denies wheezing Pulmonology Exam Inpatient Vital signs and Labs for Last 24 Hours: Temp Pulse Resp BP Pulse Ox O2 Del Method O2 Flow Rate 98 F 45 L 18 103/44 L 90 L Nasal Cannula 3 09/03/23 07:43 09/03/23 08:00 09/03/23 08:00 09/03/23 08:00 09/03/23 08:00 09/03/23 08:00 09/03/23 08:00 FiO2 35 09/02/23 06:25 Laboratory Results - last 24 hr 09/02/23 10:58: POC Glucose 237 H 09/02/23 15:53: POC Glucose 196 H 09/02/23 19:52: POC Glucose 225 H 09/03/23 05:27: WBC 8.1, RBC 5.25, Hgb 12.8, Hct 42.7, MCV 81.2, MCH 24.3 L, M CHC 29.9 L, RDW 22.2 H, Plt Count 128 L, MPV 8.9, Neut % (Auto) 70.5, Lymph % (Auto) 18.7, [place] % (Auto) 8.5, Eos % (Auto) 1.4, Baso % (Auto) 0.9, Neut # (Auto) 5.7, Lymph # (Auto) 1.5, [place] # (Auto) 0.7, Eos # (Auto) 0.1, Baso # (Auto) 0.1, Sodium 136, Potassium 3.7, Chloride 95 L, Carbon Dioxide 38 H, Anion Gap 6.7, BUN 19 H, Creatinine 1.00, Estimated Creat Clear 80, Estimated GFR 54 L , Est GFR ( Amer) 66, Glucose 165 H D, Calcium 8.8, Magnesium 1.9, Total Bilirubin 0.4, AST 20, ALT 22, Alkaline Phosphatase 54, Total Protein 5.8 L, A lbumin 3.1 L, Globulin 2.7, Albumin/Globulin Ratio 1.1 09/03/23 07:24: ABG pH 7.38, ABG pCO2 63.0 H, ABG pO2 70.2 L, ABG HCO3 36.0 H, A BG Total CO2 37.9 H, ABG O2 Saturation 93, ABG Base Excess 10.8 H I & O for Labs for Last 24 Hours: Intake & Output 08/31/23 09/01/23 09/02/23 09/03/23 23:59 23:59 23:59 23:59 Intake Total 630 / 1220 1730 / 2080 1160 / 1160 Output Total 0 / 200 2050 / 3350 1800 / 1800 Balance 630 / 1020 -320 / -1270 -640 / -640 Weight 223 lb 222 lb 15.996 oz 218 lb 6 oz Microbiology Reports for the Last 24 Hours: Microbiology 09/01/23 12:42 Blood Blood Culture - Preliminary NO GROWTH AFTER 24 HOURS 09/01/23 12:42 Blood Blood Culture - Preliminary NO GROWTH AFTER 24 HOURS Constitutional: Present moderate distress Head: Present normocephalic and atraumatic ENT: Present normal exam, normal oropharynx and mucous membranes moist Neck: Present normal inspection and full ROM Respiratory: Present respiratory distress, rhonchi and able to speak in complete sentences; Absent wheezes or diminished air movement Cardiac: Present S1/S2, Tachycardia and radial pulses present GI: Present soft and distention; Absent tenderness or guarding Rectal (female): Present deferred (female): Present deferred Skin: Present intact; Absent cyanosis or jaundice Neuro: Present alert, awake and oriented x 3 Extremities: Present normal inspection; Absent clubbing or cyanosis Psychiatric: Present normal affect and cooperative Meds Home Medications and Allergies Home Medications ?Medication ?Instructions ?Recorded ?Confirmed ?Type ergocalciferol (vitamin D2) 1,250 1,250 mcg PO DIRECTED 08/12/20 09/02/23 History mcg (50,000 unit) capsule albuterol sulfate 90 mcg/actuation 2 puff inhalation Q4HP PRN 12/18/22 09/02/23 History aerosol inhaler Shortness Of Breath Or Wheezing apixaban 5 mg tablet (Eliquis) 5 mg PO BID 12/18/22 09/02/23 History docusate sodium 100 mg tablet 100 mg PO BID 12/18/22 09/02/23 History ferrous sulfate 324 mg (65 mg 324 mg PO DAILY 12/18/22 09/02/23 History iron) tablet,delayed release icosapent ethyl 1 gram capsule 1 g PO BID 12/18/22 09/02/23 History (Vascepa) insulin lispro 100 unit/mL 0 sliding scale dose SQ ACHS 12/18/22 09/02/23 History subcutaneous pen Diabetes multivitamin 1 tab PO DAILY 12/18/22 09/02/23 History nitroglycerin 0.4 mg sublingual 0.4 mg sublingual Q5MINP PRN Chest 12/18/22 09/02/23 History tablet Pain omeprazole 40 mg capsule,delayed 40 mg PO HS 12/18/22 09/02/23 History release acetaminophen 500 mg tablet 500 mg PO AC 12/19/22 09/02/23 History albuterol sulfate 2.5 mg/3 mL 2.5 mg inhalation Q4HP PRN 12/19/22 09/02/23 History (0.083 %) solution for nebulization shortness of air or wheezing gabapentin 300 mg capsule 300 mg PO BID 12/19/22 09/02/23 History hydrocodone 5 mg-acetaminophen 325 1 tab PO Q12HP PRN Moderate Pain 01/12/23 09/02/23 History mg tablet (Scale Score 5-6) clopidogrel 75 mg tablet 75 mg PO DAILY 03/18/23 09/02/23 History clobetasol 0.05 % shampoo 1 applic topical HS 04/19/23 09/02/23 History empagliflozin 10 mg tablet 10 mg PO DAILY 04/19/23 09/02/23 History (Jardiance) insulin glargine 100 unit/mL (3 14 unit SQ HS Diabetes 04/19/23 09/02/23 History mL) subcutaneous pen (Lantus Solostar U-100 Insulin) levothyroxine 50 mcg tablet 50 mcg PO DAILYDM 04/19/23 09/02/23 History miconazole nitrate 2 % topical 1 applic topical BID 04/19/23 09/02/23 History cream ondansetron 4 mg disintegrating 4 mg PO Q6HP PRN Nausea And 04/19/23 09/02/23 History tablet Vomiting bumetanide 2 mg tablet 2 mg PO BID #60 tabs 04/30/23 09/02/23 Rx buspirone 10 mg tablet 10 mg PO TID 07/04/23 09/02/23 History cetirizine 10 mg tablet 10 mg PO DAILY 08/07/23 09/02/23 History fluticasone fur. 100 mcg-umeclid 1 inh inhalation DAILY 08/13/23 09/02/23 History 62.5 mcg-vilant 25 mcg inhalat.powder (Trelegy Ellipta) paroxetine HCl 40 mg tablet (Paxil) 40 mg PO HS 08/13/23 09/02/23 History rosuvastatin 10 mg tablet 10 mg PO HS 08/13/23 09/02/23 History spironolactone 50 mg tablet 50 mg PO DAILY 08/13/23 09/02/23 History polyethylene glycol 3350 17 17 g PO DAILY 08/14/23 09/02/23 History gram/dose oral powder metoprolol tartrate 25 mg tablet 12.5 mg (1/2 x 25 mg) PO BID #60 08/29/23 09/02/23 Rx tabs trazodone 150 mg tablet 150 mg PO HS 08/29/23 09/02/23 History New Prescriptions to Start Prescriptions: Allergies Allergy/AdvReac Type Severity Reaction Status Date / Time cephalexin Allergy Verified 08/29/23 13:23 Penicillins Allergy Verified 08/29/23 13:23 Results Laboratory Findings 09/03/23 05:27 09/03/23 05:27 ABG ABG pH 7.38 mmol/L (7.35-7.45) 09/03/23 07:24 ABG pCO2 63.0 mmhg (35.0-45.0) H 09/03/23 07:24 ABG pO2 70.2 mmhg (80-100) L 09/03/23 07:24 ABG O2 Saturation 93 % (90-100) 09/03/23 07:24 Abnormal lab findings: Abnormal Labs 09/01/23 09/01/23 09/01/23 12:15 12:42 15:15 RBC 5.82 H Hct 48.1 H MCH 24.4 L MCHC 29.5 L RDW 22.1 H Plt Count ABG pH 7.33 L ABG pCO2 62.3 H ABG pO2 105.7 H ABG HCO3 32.0 H ABG Total CO2 33.9 H ABG Base Excess 6.0 H VBG pH 7.29 L VBG pCO2 77.5 H VBG pO2 50.9 H VBG HCO3 36.1 H VBG Total CO2 38.5 H VBG O2 Saturation 79.9 H VBG Base Excess 9.4 H Sodium Chloride 96 L Carbon Dioxide 40 H Anion Gap BUN 21 H Creatinine 1.10 H Estimated GFR 49 L Glucose 211 H POC Glucose NT-Pro-B Natriuret Pep 981 H Total Protein 6.1 L Albumin TSH 8.34 H 09/01/23 09/01/23 09/02/23 16:43 20:27 06:33 RBC Hct MCH 24.9 L MCHC 30.4 L RDW 22.0 H Plt Count 129 L ABG pH ABG pCO2 ABG pO2 ABG HCO3 ABG Total CO2 ABG Base Excess VBG pH VBG pCO2 VBG pO2 VBG HCO3 VBG Total CO2 VBG O2 Saturation VBG Base Excess Sodium 135 L Chloride 97 L Carbon Dioxide 37 H Anion Gap 4.7 L BUN Creatinine Estimated GFR Glucose POC Glucose 192 H 169 H NT-Pro-B Natriuret Pep Total Protein 5.9 L Albumin 3.1 L D TSH 09/02/23 09/02/23 09/02/23 07:13 10:58 15:53 RBC Hct MCH MCHC RDW Plt Count ABG pH ABG pCO2 48.6 H ABG pO2 74.5 L ABG HCO3 26.4 H ABG Total CO2 27.9 H ABG Base Excess VBG pH VBG pCO2 VBG pO2 VBG HCO3 VBG Total CO2 VBG O2 Saturation VBG Base Excess Sodium Chloride Carbon Dioxide Anion Gap BUN Creatinine Estimated GFR Glucose POC Glucose 237 H 196 H NT-Pro-B Natriuret Pep Total Protein Albumin TSH 09/02/23 09/03/23 09/03/23 19:52 05:27 07:24 RBC Hct MCH 24.3 L MCHC 29.9 L RDW 22.2 H Plt Count 128 L ABG pH ABG pCO2 63.0 H ABG pO2 70.2 L ABG HCO3 36.0 H ABG Total CO2 37.9 H ABG Base Excess 10.8 H VBG pH VBG pCO2 VBG pO2 VBG HCO3 VBG Total CO2 VBG O2 Saturation VBG Base Excess Sodium Chloride 95 L Carbon Dioxide 38 H Anion Gap BUN 19 H Creatinine Estimated GFR 54 L Glucose 165 H D POC Glucose 225 H NT-Pro-B Natriuret Pep Total Protein 5.8 L Albumin 3.1 L TSH Assessment and Plan *Assessment and plan (1) Acute on chronic respiratory failure with hypoxia and hypercapnia: Status: Acute Category: Medical Code(s): J96.21 - Acute and chronic respiratory failure with hypoxia; J96.22 - Acute and chronic respiratory failure with hypercapnia (2) Lung nodule: Status: Acute Category: Medical Code(s): R91.1 - Solitary pulmonary nodule Plan Ms. Sena is a 72-year-old female severe COPD chronic hypoxic hypercarbic respiratory failure baseline 2 L nasal oxygen supplementation on a part of CPAP presented to ER with worsening mentation and hypotension and bradycardia. Patient was recently admitted to the hospital on 08/15/2023 with worsening respiratory distress during which she was managed for volume overload on diuretics. She did not receive any antibiotics/no changes were made for her home CPAP therapy. ABG on admission showed mild hypercarbic respiratory failure with a pH of 7.33 and pCO2 of 62.3. Patient was initiated on BiPAP therapy subsequent ABG showed a pH of 7.35 and pCO2 48.6. Blood gas from this morning showed a pH of 7.38 and pCO2 of 63.0. Compliance report from June 2023 reviewed, patient has good usage, on CPAP auto 6-14. Given patient continued hypercarbic respiratory failure despite being on CPAP and being compliant she would be benefited from BiPAP given her hypercarbic respiratory failure which is likely from her COPD. Plan: -Initiate patient on BiPAP therapy at 09/22 with RR of 16 -Continue to work with [facility] to obtain most recent compliance report. -Follow the patient in pulmonary clinic 1 week postdischarge with repeat ABG to further determine BiPAP effectiveness and the need for assured volume ventilation. -Continue Trelegy 100 inhaler along with DuoNebs every 6 hours on as-needed basis -Patient is still due to get her 3-month follow-up CT in August 2023, will reschedule that with her next clinic visit. Will perform the CT the same day
--- NOTE | 2023-09-03 09:41 | PC.WOUNDNOTE ---
stage 2 noted to left buttocks ulcer noted to rle
--- NOTE | 2023-09-03 10:16 | HMH.PTWOUND ---
Rehab Inpt Wound Evaluation Rehab IP Wound Evaluation Start: 09/02/23 16:00 Freq: ONCE Status: Active Protocol: Document 09/03/23 10:09 DENYS (Rec: 09/03/23 10:15 DENYS [id number]) Rehab PT Wound Assessment Subjective Subjective 72 yowf adm to [facility] with bradycardia. She has PMH of hypertension, hyperlipidemia, COPD on 3 L, A-fib on Eliquis, CHF, sleep apnea necessitating CPAP nightly. She lives at a long-term care facility. She is independent with rolling in bed at baseline and currently. She does present with wounds to the Left buttock and R anterior lower leg upon admission. She reports, The wound nurse comes in and scrapes them once a week. Wound Right Anterior [place] Wound Type unknown etiology Is This a Chronic Wound Yes Wound Length (cm) 1.5 Wound Width (cm) 2.5 Wound Depth (cm) 0.2 Wound Bed Appearance Beefy Red,Yellow Wound Margins Description Well Defined Surrounding Tissue Appearance Dark Red,Purple Edema Type Pitting Edema Degree 2+ Query Text:1+ Trace, Barely Detectable, Rebound 15-30 seconds 2+ Moderate, Slight Indentation, Rebound 10-20 seconds 3+ Deep, Deeper Indentation, Rebound > 30 seconds 4+ Very Deep, Rebound > 60 seconds Wound Drainage Description Purulent Drainage Amount Moderate Packing Type Alginate Primary Dressing Composite Comment bordered foam Wound Debridement Method Gauze,Mechanical Wound Debridement Amount of Tissue Minimal Removed Dressing Change Patient Tolerance Tolerated Well Left Buttock Wound Type Pressure Ulcer Is This a Chronic Wound Yes Wound Staging Stage II Query Text:Stage I - Unbroken, red skin, no blanching. Stage II - Skin broken, superficial skin loss involving epidermis alone or also dermis. Partial loss of skin layers. Stage III - Pressure area involves epidermis, dermis and subcutaneous tissue, full thickness skin loss. Stage IV - Pressure area involves epidermis, subcutaneous tissue, bone and other supportive tissue. Full thickness skin loss with extensive destruction of underlying tissue and structures. Wound Length (cm) 0.8 Wound Width (cm) 1.0 Wound Depth (cm) 0.1 Wound Bed Appearance [place] Wound Margins Description Well Defined Surrounding Tissue Appearance [place] Wound Drainage Description Serous Drainage Amount Scant Primary Dressing Composite Comment bordered foam Wound Debridement Method Gauze,Mechanical Wound Debridement Amount of Tissue Minimal Removed Dressing Change Patient Tolerance Tolerated Well Plan/Recommendation Comment Continue dressing changes as indicated by nsg staff. Both dressings can remain in place for 2-3 days depending on amount of drainage. Will follow as needed while patient is adm to the hospital. Eval Complexity Eval Charge Codes 99292 - High Complexity PHYSICIAN CERTIFICATION: I certify the specified therapy services for Rosalina Sena are required, authorized, and reviewed every 30 days.
[2023-09-03 13:51] LABS: POC Glucose,Bedside 153 (70-110)
[2023-09-03 13:51] LABS: POC Glucose,Bedside 235 (70-110)
== END 2023-09-03 13:00 | DRG 917 ==
LOC: ER 12:56 → 2ND 14:18
PROVIDERS: Admitting Provider Internal Medicine Adolescent Medicine; Emergency Provider Emergency Medicine; Visit Provider Internal Medicine Adolescent Medicine
DX: T44.7X1A Poisoning by beta-adrenoreceptor antagonists, accidental (unintentional), initial encounter (principal); J96.02 Acute respiratory failure with hypercapnia; J96.21 Acute and chronic respiratory failure with hypoxia; I48.20 Chronic atrial fibrillation, unspecified; I42.9 Cardiomyopathy, unspecified; R00.1 Bradycardia, unspecified; G47.33 Obstructive sleep apnea (adult) (pediatric); E11.69 Type 2 diabetes mellitus with other specified complication; Z79.4 Long term (current) use of insulin; E78.2 Mixed hyperlipidemia; I27.20 Pulmonary hypertension, unspecified; I25.118 Atherosclerotic heart disease of native coronary artery with other forms of angina pectoris; I25.2 Old myocardial infarction; I11.0 Hypertensive heart disease with heart failure; E66.9 Obesity, unspecified; Z68.37 Body mass index [BMI] 37.0-37.9, adult; M19.90 Unspecified osteoarthritis, unspecified site; J44.9 Chronic obstructive pulmonary disease, unspecified; Z99.81 Dependence on supplemental oxygen; I48.91 Unspecified atrial fibrillation; Z79.01 Long term (current) use of anticoagulants; F32.A Depression, unspecified; M79.7 Fibromyalgia; F41.9 Anxiety disorder, unspecified; Z95.5 Presence of coronary angioplasty implant and graft; E03.9 Hypothyroidism, unspecified
CPT/HCPCS: 36415; 71045; 80048; 80050; 80053; 80061; 80076; 81001; 82803; 82962; 83605; 83735; 83880; 84436; 84439; 84443; 84484; 85025; 85730; 87040; 93005; 93270; 94640; 99291; J1610; J1956; J7120; J7620

== ENCOUNTER 2023-09-10 13:43 | Outpatient (CLI) | payer MEDICARE, MEDICAID, SELFPAY ==
[2023-09-10 13:57] LABS: ABG Base Excess 12.6 mmol/L (-2.4-2.3); ABG Oxygen Saturation 92 % (90-100); ABG PH 7.36 mmol/L (7.35-7.45); ABG PO2 66.1 mmhg (80-100); ABG TCO2 40.1 mmhg (23-27)
[2023-09-10 13:58] LABS: Allen's Test Acceptable; Oxygen 2.5L %
[2023-09-10 13:59] LABS: ABG PCO2 68.5 mmhg (35.0-45.0)
== END 2023-09-10 23:59 | disposition home or self-care (01) ==
LOC: RT 13:44
PROVIDERS: PCP Internal Medicine Adolescent Medicine; Visit Provider Internal Medicine Pulmonary Disease
DX: J44.9 Chronic obstructive pulmonary disease, unspecified (principal)
CPT/HCPCS: 82803

== ENCOUNTER 2023-09-11 05:58 | Observation (INO) | payer MEDICARE, MEDICAID, SELFPAY ==
[2023-09-11] VITALS (24 sets, daily range): BP systolic 89–152; BP diastolic 42–104; PULSE 43–60; RESP 14–22; TEMP 36.4–37.2; O2SAT 91–98; BMI 41.5
--- NOTE | 2023-09-11 06:43 | CT_ITS ---
FINAL REPORT TECHNIQUE: Thin section axial CT with IV contrast supplemented with multiplanar reconstruction under CT angiogram protocol. 3-D reconstructions were performed. This study was performed with techniques to keep radiation doses as low as reasonably achievable (ALARA). Individualized dose reduction techniques using automated exposure control or adjustment of mA and/or kV according to the patient''s size were employed. CLINICAL HISTORY: ams FINDINGS: There is generalized age-appropriate atrophy. Periventricular low-attenuation areas are seen consistent with moderate chronic ischemic changes. There is no evidence of intracranial hemorrhage or mass. There are multiple chronic lacunar infarcts which are stable. There is calcification in the right frontal white matter which is stable. There is no evidence of acute infarct. There is no evidence of shift of the midline structures. IMPRESSION: Chronic appearing findings without acute abnormality. The distal vertebral, basilar and distal internal carotid arteries have an unremarkable appearance. No aneurysm is seen. Major intracranial vessels are patent without significant stenosis. Impression: No evidence of aneurysm or stenosis. Reviewed, Interpreted and Dictated by Delfino Ruth III, MD Transcribed by Cass Pérez Authenticated and . [facility]
--- NOTE | 2023-09-11 06:43 | CT_ITS ---
FINAL REPORT TECHNIQUE: Postcontrast axial images through the abdomen and pelvis were performed. This study was performed with techniques to keep radiation doses as low as reasonably achievable, (ALARA). Individualized dose reduction techniques using automated exposure control or adjustment of mA and/or kV according to the patient's size were employed. CLINICAL HISTORY: abd distension, emesis, ams FINDINGS: Abdomen: There is a less than 1 cm cyst in the right hepatic lobe. The patient is status post cholecystectomy. There are postoperative changes in the anterior abdominal wall. The spleen is unremarkable. The adrenals are normal. The pancreas is unremarkable. Several bilateral renal cysts are identified, largest measures 3.1 cm. No follow-up is recommended. The aorta is normal in caliber. No free fluid or adenopathy is identified. No findings for mechanical bowel obstruction are identified. Pelvis: The appendix is not identified. Patient is status post hysterectomy. The urinary bladder is unremarkable. No free fluid, free air, abscess or adenopathy is identified. IMPRESSION: Hepatic and renal cysts. No follow-up is recommended. Reviewed, Interpreted and Dictated by Delfino Ruth III, MD Transcribed by Cass Pérez Authenticated and [facility]
--- NOTE | 2023-09-11 06:43 | XR_ITS ---
FINAL REPORT CLINICAL HISTORY: soa copd COMPARISON: 09/01/2023 FINDINGS: SINGLE-VIEW CHEST There is cardiomegaly with pulmonary vascular congestion, worse. The mediastinum is normal. There are worsening left base opacities, may represent pneumonia or atelectasis. There is no pneumothorax. IMPRESSION: Worsening left base opacities. Reviewed, Interpreted and Dictated by Delfino Ruth III, MD Transcribed by Cass Pérez Authenticated and [facility]
--- NOTE | 2023-09-11 06:43 | CT_ITS ---
FINAL REPORT CLINICAL HISTORY: soa, hypoxia, ams FINDINGS: Thin section axial CT images of the chest were obtained with contrast. 3D reformatted images were also obtained. This study was performed with techniques to keep radiation doses as low as reasonably achievable (ALARA). Individualized dose reduction techniques using automated exposure control or adjustment of mA and/or kV according to the patient's size were employed. There is no evidence of pulmonary embolism. There is no evidence of thoracic aortic aneurysm or dissection. There is no evidence of mediastinal or hilar mass or adenopathy. There is no evidence of pulmonary mass or nodule. There is bilateral lower lobe atelectasis. IMPRESSION: No evidence of pulmonary embolism. Bilateral lower lobe atelectasis. Reviewed, Interpreted and Dictated by Delfino Ruth III, MD Transcribed by Cass Pérez Authenticated and [facility]
--- NOTE | 2023-09-11 06:43 | CT_ITS ---
FINAL REPORT TECHNIQUE: Thin section axial CT with IV contrast supplemented with multiplanar reconstruction under CT angiogram protocol. This study was performed with techniques to keep radiation doses as low as reasonably achievable (ALARA). Individualized dose reduction techniques using automated exposure control or adjustment of mA and/or kV according to the patient''s size were employed. NASCET criteria was utilized during interpretation. CLINICAL HISTORY: ams FINDINGS: Aortic arch: Arch shows no significant narrowing. Great vessel origins are widely patent. Right carotid: No significant stenosis is seen of the cervical common or internal carotid artery. Left carotid: Heavily calcified plaque of the carotid bifurcation makes evaluation more difficult. There is a proximally 60-70% stenosis at the carotid bulb. Vertebral: Right vertebral artery is dominant. No significant stenosis is present. IMPRESSION: 60-70% stenosis at the left carotid bulb. Consider correlation with catheter angiogram. Reviewed, Interpreted and Dictated by Delfino Ruth III, MD Transcribed by Cass Pérez Authenticated and [facility]
--- NOTE | 2023-09-11 06:49 | ED_ITS ---
Discharge Plan Disposition Patient Disposition: Admitted Condition: Fair Clinical Impressions Clinical Impression: Chronic respiratory failure with hypoxia and hypercapnia, Encephalopathy Discharge ED Provider: Princess Byrd Adult HPI <Princess Byrd MD - Last Filed: 09/11/23 07:44> General Chief complaint: Shortness of Breath/Dyspnea Stated complaint: COPD exacerbation Time Seen by Provider: 09/11/23 06:43 Mode of Arrival: EMS Source of Information: EMS Limitations: Physical Limitations Description of Symptoms (Recalled from ER Triage Doc. by RN): Pt presents to ED via EMS due to being unresponsive at [place]. Nurse states she was fine at 2am however she wouldn't wake up at 0530. Pt has hx of COPD and sleeps w/ a C-PAP. Nurse at states her O2 sat was 76. EMS put pt on a non rebreather and pt is now at 97%. Pt will stir to painful stimuli and if you ask her direct questions. Nursing staff at states she will normally wake up and talk. History of Present Illness HPI narrative: 72-year-old female presents to the ER for concerns of decreased responsiveness and hypoxia from her retirement. Patient's nurse Yin reported to me by phone that she was fine at 2 AM playing on her iPad but around 530 patient was difficult to arouse despite sleeping with her CPAP she was only 76%. The EMS reports they applied a nonrebreather which improved her O2 saturation to 97%. Per nursing staff at the facility, patient is not ambulatory but is able to use her upper extremities. She does not have any history of stroke. She has had admissions for similar presentations previously reportedly for hypoxia. Related Data Home Medications ?Medication ?Instructions ?Recorded ?Confirmed ergocalciferol (vitamin D2) 1,250 1,250 mcg PO DIRECTED 08/12/20 09/11/23 mcg (50,000 unit) capsule albuterol sulfate 90 mcg/actuation 2 puff inhalation Q4HP PRN 12/18/22 09/11/23 aerosol inhaler Shortness Of Breath Or Wheezing apixaban 5 mg tablet (Eliquis) 5 mg PO BID 12/18/22 09/11/23 docusate sodium 100 mg tablet 100 mg PO BID 12/18/22 09/11/23 ferrous sulfate 324 mg (65 mg 324 mg PO DAILY 12/18/22 09/11/23 iron) tablet,delayed release icosapent ethyl 1 gram capsule 1 g PO BID 12/18/22 09/11/23 (Vascepa) insulin lispro 100 unit/mL 0 sliding scale dose SQ ACHS 12/18/22 09/11/23 subcutaneous pen Diabetes multivitamin 1 tab PO DAILY 12/18/22 09/11/23 nitroglycerin 0.4 mg sublingual 0.4 mg sublingual Q5MINP PRN Chest 12/18/22 09/11/23 tablet Pain omeprazole 40 mg capsule,delayed 40 mg PO HS 12/18/22 09/11/23 release acetaminophen 500 mg tablet 500 mg PO AC 12/19/22 09/11/23 albuterol sulfate 2.5 mg/3 mL 2.5 mg inhalation Q4HP PRN 12/19/22 09/11/23 (0.083 %) solution for nebulization shortness of air or wheezing gabapentin 300 mg capsule 300 mg PO BID 12/19/22 09/11/23 hydrocodone 5 mg-acetaminophen 325 1 tab PO Q12HP PRN Moderate Pain 01/12/23 09/11/23 mg tablet (Scale Score 5-6) clopidogrel 75 mg tablet 75 mg PO DAILY 03/18/23 09/11/23 clobetasol 0.05 % shampoo 1 applic topical HS 04/19/23 09/11/23 empagliflozin 10 mg tablet 10 mg PO DAILY 04/19/23 09/11/23 (Jardiance) insulin glargine 100 unit/mL (3 14 unit SQ HS Diabetes 04/19/23 09/11/23 mL) subcutaneous pen (Lantus Solostar U-100 Insulin) levothyroxine 50 mcg tablet 50 mcg PO DAILYDM 04/19/23 09/11/23 miconazole nitrate 2 % topical 1 applic topical BID 04/19/23 09/11/23 cream ondansetron 4 mg disintegrating 4 mg PO Q6HP PRN Nausea And 04/19/23 09/11/23 tablet Vomiting buspirone 10 mg tablet 10 mg PO TID 07/04/23 09/11/23 cetirizine 10 mg tablet 10 mg PO DAILY 08/07/23 09/11/23 fluticasone fur. 100 mcg-umeclid 1 inh inhalation DAILY 08/13/23 09/11/23 62.5 mcg-vilant 25 mcg inhalat.powder (Trelegy Ellipta) paroxetine HCl 40 mg tablet (Paxil) 40 mg PO HS 08/13/23 09/11/23 rosuvastatin 10 mg tablet 10 mg PO HS 08/13/23 09/11/23 spironolactone 50 mg tablet 50 mg PO DAILY 08/13/23 09/11/23 polyethylene glycol 3350 17 17 g PO DAILY 08/14/23 09/11/23 gram/dose oral powder Previous Rx's ?Medication ?Instructions ?Recorded bumetanide 2 mg tablet 2 mg PO BID #60 tabs 04/30/23 Allergies Allergy/AdvReac Type Severity Reaction Status Date / Time cephalexin Allergy Verified 09/10/23 13:23 Penicillins Allergy Verified 09/10/23 13:23 [facility] <Princess Byrd MD - Last Filed: 09/11/23 07:44> [facility] Disclaimer: The information contained in this section may have been updated after the patient was seen, as this information can be updated by other users. Medical History Chronic respiratory failure with hypoxia and hypercapnia Lung nodule Rotator cuff arthropathy of right shoulder Acute anterior epistaxis Chronic hypoxemic respiratory failure Nodule of left lung Heart attack Encounter for screening for malignant neoplasm of lung COPD mixed type History of smoking 30 or more pack years Dyspnea Bilateral hearing loss due to cerumen impaction Encounter for removal of nasal packing CAD in [place] artery Cardiomyopathy Non-STEMI (non-ST elevated myocardial infarction) Right ventricular dilation Coronary artery disease HFrEF (heart failure with reduced ejection fraction) Pneumonia Diabetes mellitus, type 2 Iron deficiency anemia Pulmonary hypertension Osteoporosis Major depressive disorder Heart failure Depression Lymphedema Insomnia Class 2 obesity due to excess calories with body mass index (BMI) of 39.0 to 39.9 in adult Fibromyalgia Congestive heart failure Atrial fibrillation Anxiety HTN (hypertension) HLD (hyperlipidemia) COPD (chronic obstructive pulmonary disease) BMI 30.0-30.9,adult Osteoarthritis Callus of foot Paresthesia of both lower extremities Onychodystrophy Onychomycosis Diabetic foot Surgical History History of coronary artery stent placement History of bladder surgery H/O: hysterectomy H/O hernia repair Family History Other Diabetes Hyperlipidemia Hypertension No significant family history Social History (Updated 09/11/23 @ 12:45 by Phuong Foster, FELIPA) Smoking Status: Unknown if ever smoked alcohol intake: never substance use type: denies use current occupational status: retired and disabled Travel in the last 8 weeks: None housing: retirement lives independently: No retirement: Yes caffeine: Yes <Princess Byrd MD - Last Filed: 09/11/23 07:44> ROS Obtained: Yes unobtainable due to mental status Physical Exam <Princess Byrd MD - Last Filed: 09/11/23 07:44> General General appearance: other (Ill-appearing, decreased level of responsiveness) Head Head exam: atraumatic and normocephalic Eye Eye exam: Present PERRL and EOMI ENT ENT exam: Present mucous membranes moist Neck Neck exam: Present normal inspection and full ROM Chest Chest inspection: Present symmetric chest wall rise Respiratory Respiratory exam: Present other (No adventitious sounds, mildly diminished throughout); Absent respiratory distress or stridor Cardiovascular Cardiovascular exam: Present normal rhythm and bradycardia Abdominal Exam Abdominal exam: Present soft, distention (Mild, not tympanitic) and tenderness (Mild diffuse); Absent guarding, rebound or rigidity Extremities Exam Extremities exam: Present full ROM, edema and other (Distal lower extremity erythema, venous stasis changes, small wound on the right anterior seymour which has recently been dressed by her nursing facility) Neurological Exam Neurological exam: Present other (Within limitations of patient's ability to participate with exam, she has no localizing deficits. She is moving all extremities equally, localizing to pain, GCS 10) Expanded Neurological Exam Coma scale eye opening: To pain Coma scale motor response: Localizes to pain Coma scale verbal response: Inappropriate Coma scale total: 10 Skin Skin exam: Present warm, dry and erythema (Distal bilateral lower extremities) <Nicole Tsang DO - Last Filed: 09/11/23 14:43> Expanded Neurological Exam Coma scale total: 10 Medical Decision Making <Princess Byrd MD - Last Filed: 09/11/23 07:44> Medical Records Medical records reviewed: Yes I reviewed the patient's medical records. MR Comment: Patient was discharged on August 14 after an admission for shortness of breath, HFpEF, had improvement after NIPPV. Tj Inquiry Pt receiving controlled substance: No Vital Signs: 09/11/23 05:58 09/11/23 06:31 09/11/23 07:01 Temperature 97.8 F Temperature Source Axillary Pulse Rate 45 L 48 L Pulse Rate [Left] 54 L Respiratory Rate 14 Blood Pressure 106/47 L 134/69 Blood Pressure [Right Arm] 125/104 H Blood Pressure Mean 66 78 Blood Pressure Mean [Right Arm] 111 02 Sat by Pulse Oximetry 98 91 L 97 Oxygen Delivery Method Non-Rebreather Oxygen Flow Rate (LPM) 15 09/11/23 07:36 09/11/23 08:01 09/11/23 08:30 Temperature Temperature Source Pulse Rate 47 L 54 L 50 L Pulse Rate [Left] Respiratory Rate 14 14 14 Blood Pressure 146/57 H 96/46 L 89/42 L Blood Pressure [Right Arm] Blood Pressure Mean 86 62 53 Blood Pressure Mean [Right Arm] 02 Sat by Pulse Oximetry 93 L 96 91 L Oxygen Delivery Method Oxygen Flow Rate (LPM) 09/11/23 08:35 09/11/23 09:00 09/11/23 09:30 Temperature Temperature Source Pulse Rate 50 L 59 L 50 L Pulse Rate [Left] Respiratory Rate 15 14 20 Blood Pressure 93/46 L 113/52 L 109/48 L Blood Pressure [Right Arm] Blood Pressure Mean 61 72 Blood Pressure Mean [Right Arm] 02 Sat by Pulse Oximetry 91 L 91 L 95 Oxygen Delivery Method BiPAP Oxygen Flow Rate (LPM) 09/11/23 09:45 09/11/23 10:00 09/11/23 10:30 Temperature Temperature Source Pulse Rate 50 L 48 L 51 L Pulse Rate [Left] Respiratory Rate 21 20 Blood Pressure 106/54 L 114/54 L Blood Pressure [Right Arm] Blood Pressure Mean 74 Blood Pressure Mean [Right Arm] 02 Sat by Pulse Oximetry 96 96 97 Oxygen Delivery Method BiPAP BiPAP Oxygen Flow Rate (LPM) 09/11/23 11:00 09/11/23 13:39 Temperature 97.7 F Temperature Source Pulse Rate 58 L 58 L Pulse Rate [Left] Respiratory Rate 16 Blood Pressure 113/57 L 113/57 L Blood Pressure [Right Arm] Blood Pressure Mean 71 Blood Pressure Mean [Right Arm] 02 Sat by Pulse Oximetry 97 Oxygen Delivery Method Oxygen Flow Rate (LPM) Lab Data Lab Results 09/11/23 07:04: WBC 8.0, RBC 5.84 H, Hgb 14.5, Hct 48.3 H, MCV 82.7, MCH 24.8 L, MCHC 30.0 L, RDW 22.0 H, Plt Count 259, MPV 8.6, Neut % (Auto) 73.6, Lymph % (Auto) 17.9, [place] % (Auto) 6.3, Eos % (Auto) 1.2, Baso % (Auto) 0.9, Neut # (Auto) 5.9, Lymph # (Auto) 1.4, [place] # (Auto) 0.5, Eos # (Auto) 0.1, Baso # (Auto) 0.1, Sodium 139, Potassium 3.6, Chloride 89 L, Carbon Dioxide 44 H*, Anion Gap 9.6, BUN 17, Creatinine 1.00, Estimated Creat Clear 45, Estimated GFR 54 L, Est GFR ( Amer) 66, Glucose 121 H, Calcium 9.1, Total Bilirubin 0.7, AST 30, ALT 22, Alkaline Phosphatase 81, Troponin I 0.02, Total Protein 7.3 D, Albumin 4.1, Globulin 3.2, Albumin/Globulin Ratio 1.3 09/11/23 07:19: VBG pH 7.33, VBG pCO2 77.4 H, VBG pO2 45.0 H, VBG HCO3 40.0 H, V BG Total CO2 42.4 H, VBG O2 Saturation 76.0 H, VBG Base Excess 14.1 H, VBG Lactic Acid 1.8 09/11/23 10:04: Urine Color Yellow, Urine Appearance Clear, Urine pH 6.5, Ur Specific [place] <= 1.005, Urine Protein Negative, Urine Glucose (UA) 2+, Urine Ketones Negative, Urine Blood Negative, Urine Nitrate Negative, Urine Bilirubin Negative, Urine Urobilinogen 1.0, Ur Leukocyte Esterase Negative, Urine RBC Occasional, Urine WBC Occasional, Ur Squamous Epith Cells Occasional, Urine Bacteria Trace 09/11/23 10:17: Troponin I 0.02 09/11/23 10:22: VBG pH 7.37, VBG pCO2 69.8 H, VBG pO2 45.9 H, VBG HCO3 39.1 H, V BG Total CO2 41.2 H, VBG O2 Saturation 79.3 H, VBG Base Excess 13.7 H, VBG Lactic Acid 2.0 09/11/23 07:04 09/11/23 07:04 Orders (Tests/Meds): ED MEDICATIONS Discontinued Medications Generic Name Dose Route Start Last Admin Trade Name Megaq PRN Reason Stop Dose Admin Albuterol/Ipratropium 9 ml 09/11/23 06:43 09/11/23 07:47 Ipratropium/Albuterol 3 Ml [facility] 09/11/23 06:44 Not Given ONCE ONE Albuterol/Ipratropium 9 ml 09/11/23 07:32 09/11/23 07:39 Ipratropium/Albuterol 3 Ml Neb 09/11/23 07:33 9 ml ONCE ONE Administration Lactated Ringer's 1,000 mls @ 999 mls/hr 09/11/23 06:43 09/11/23 07:39 Lactated Ringer's 1000 Ml Bag IV 09/11/23 07:43 999 mls/hr .Q1H1M ONE Administration Iopamidol 100 ml 09/11/23 07:41 09/11/23 07:42 Iopamidol-370 (76%);100ml Bottle IV 09/11/23 07:42 100 ml ONCE ONE Administration Iopamidol 100 ml 09/11/23 07:41 09/11/23 07:43 Iopamidol-370 (76%);100ml Bottle IV 09/11/23 07:42 100 ml ONCE ONE Administration Sodium Chloride 50 ml 09/11/23 07:41 09/11/23 07:42 0.9 % Sodium Chloride 50 Ml Vial IV 09/11/23 07:42 50 ml ONCE ONE Administration Sodium Chloride 10 ml 09/11/23 07:41 09/11/23 07:42 Sodium Chloride 0.9% 10ml Syr (Rad Only) IV 09/11/23 07:42 10 ml ONCE ONE Administration Sodium Chloride 50 ml 09/11/23 07:41 09/11/23 07:42 0.9 % Sodium Chloride 50 Ml Vial IV 09/11/23 07:42 50 ml ONCE ONE Administration Sodium Chloride 10 ml 09/11/23 07:41 09/11/23 07:43 Sodium Chloride 0.9% 10ml Syr (Rad Only) IV 09/11/23 07:42 10 ml ONCE ONE Administration ORDERS Category Date Time Status CT abdomen pelvis w con Stat Cat Scan 09/11/23 06:[address] angio chest PE protocol Stat Cat Scan 09/11/23 06:[address] angio neck Stat Cat Scan 09/11/23 06:43 Completed Pulmonology Consult [Consult to Pulmonology] [CONS] Cons 09/11/23 12:[address] angio head with & w/o Stat Exams 09/11/23 06:43 Completed CXR --portable [XR chest portable] Stat Exams 09/11/23 06:43 Completed CBC w/Auto Diff [Complete Blood Count Auto Diff] Stat Lab 09/11/23 07:04 Completed CMP [Comprehensive Metabolic Panel] Stat Lab 09/11/23 07:04 Completed Complete Blood Count Auto Diff AMLAB Lab 09/12/23 06:00 Ordered Comprehensive Metabolic Panel AMLAB Lab 09/12/23 06:00 Ordered Magnesium AMLAB Lab 09/12/23 06:00 Ordered Trop I [Troponin I] Stat Lab 09/11/23 07:04 Completed Troponin I Q3H Lab 09/11/23 10:17 Completed Urinalysis and Microscopic Stat Lab 09/11/23 10:04 Completed VBG [Venous Blood Gas] Stat RT 09/11/23 07:19 Completed VBG [Venous Blood Gas] Stat RT 09/11/23 10:22 Completed Medical Decision Narrative: In summary, this 72-year-old female presents to the emergency department today with altered mental status, hypoxia. On initial evaluation patient is bradycardic but hemodynamically stable, afebrile, saturating well on nonrebreather, no adventitious sounds though she is diminished throughout. Differential diagnosis includes but is not limited to hypoxia, hypercarbia, intracranial bleed, stroke, ACS, PE, electrolyte abnormality, dehydration, urinary tract infection, patient appears to have dried emesis on her mouth so I also have concerns for bowel obstruction or other intra-abdominal pathology. Based on these concerns, I ordered serum labs, urinalysis, CT imaging. ECG personally interpreted demonstrates sinus bradycardia, rate 48, normal CA, normal QTc, no STEMI. Patient received DuoNebs, IV fluids for treatment. Labs personally reviewed demonstrate no leukocytosis or anemia, VBG with significant hypercarbia, pCO2 77.4, normal pH at 7.33, VBG lactic normal at 1.8, additional labs pending at the time of physician handoff.. CT head personally interpreted does not demonstrate acute intracranial abnormality such as bleed, mass, or midline shift. See radiology read for final interpretation. Radiology reads pending. Patient handed off to Dr. Tsang for further management and disposition. <Nicole Tsang, DO - Last Filed: 09/11/23 14:43> Vital Signs: 09/11/23 05:58 09/11/23 06:31 09/11/23 07:01 Temperature 97.8 F Temperature Source Axillary Pulse Rate 45 L 48 L Pulse Rate [Left] 54 L Respiratory Rate 14 Blood Pressure 106/47 L 134/69 Blood Pressure [Right Arm] 125/104 H Blood Pressure Mean 66 78 Blood Pressure Mean [Right Arm] 111 02 Sat by Pulse Oximetry 98 91 L 97 Oxygen Delivery Method Non-Rebreather Oxygen Flow Rate (LPM) 15 09/11/23 07:36 09/11/23 08:01 09/11/23 08:30 Temperature Temperature Source Pulse Rate 47 L 54 L 50 L Pulse Rate [Left] Respiratory Rate 14 14 14 Blood Pressure 146/57 H 96/46 L 89/42 L Blood Pressure [Right Arm] Blood Pressure Mean 86 62 53 Blood Pressure Mean [Right Arm] 02 Sat by Pulse Oximetry 93 L 96 91 L Oxygen Delivery Method Oxygen Flow Rate (LPM) 09/11/23 08:35 09/11/23 09:00 09/11/23 09:30 Temperature Temperature Source Pulse Rate 50 L 59 L 50 L Pulse Rate [Left] Respiratory Rate 15 14 20 Blood Pressure 93/46 L 113/52 L 109/48 L Blood Pressure [Right Arm] Blood Pressure Mean 61 72 Blood Pressure Mean [Right Arm] 02 Sat by Pulse Oximetry 91 L 91 L 95 Oxygen Delivery Method BiPAP Oxygen Flow Rate (LPM) 09/11/23 09:45 09/11/23 10:00 09/11/23 10:30 Temperature Temperature Source Pulse Rate 50 L 48 L 51 L Pulse Rate [Left] Respiratory Rate 21 20 Blood Pressure 106/54 L 114/54 L Blood Pressure [Right Arm] Blood Pressure Mean 74 Blood Pressure Mean [Right Arm] 02 Sat by Pulse Oximetry 96 96 97 Oxygen Delivery Method BiPAP BiPAP Oxygen Flow Rate (LPM) 09/11/23 11:00 09/11/23 13:39 Temperature 97.7 F Temperature Source Pulse Rate 58 L 58 L Pulse Rate [Left] Respiratory Rate 16 Blood Pressure 113/57 L 113/57 L Blood Pressure [Right Arm] Blood Pressure Mean 71 Blood Pressure Mean [Right Arm] 02 Sat by Pulse Oximetry 97 Oxygen Delivery Method Oxygen Flow Rate (LPM) Lab Data Lab Results 09/11/23 07:04: WBC 8.0, RBC 5.84 H, Hgb 14.5, Hct 48.3 H, MCV 82.7, MCH 24.8 L, MCHC 30.0 L, RDW 22.0 H, Plt Count 259, MPV 8.6, Neut % (Auto) 73.6, Lymph % (Auto) 17.9, [place] % (Auto) 6.3, Eos % (Auto) 1.2, Baso % (Auto) 0.9, Neut # (Auto) 5.9, Lymph # (Auto) 1.4, [place] # (Auto) 0.5, Eos # (Auto) 0.1, Baso # (Auto) 0.1, Sodium 139, Potassium 3.6, Chloride 89 L, Carbon Dioxide 44 H*, Anion Gap 9.6, BUN 17, Creatinine 1.00, Estimated Creat Clear 45, Estimated GFR 54 L, Est GFR ( Amer) 66, Glucose 121 H, Calcium 9.1, Total Bilirubin 0.7, AST 30, ALT 22, Alkaline Phosphatase 81, Troponin I 0.02, Total Protein 7.3 D, Albumin 4.1, Globulin 3.2, Albumin/Globulin Ratio 1.3 09/11/23 07:19: VBG pH 7.33, VBG pCO2 77.4 H, VBG pO2 45.0 H, VBG HCO3 40.0 H, V BG Total CO2 42.4 H, VBG O2 Saturation 76.0 H, VBG Base Excess 14.1 H, VBG Lactic Acid 1.8 09/11/23 10:04: Urine Color Yellow, Urine Appearance Clear, Urine pH 6.5, Ur Specific [place] <= 1.005, Urine Protein Negative, Urine Glucose (UA) 2+, Urine Ketones Negative, Urine Blood Negative, Urine Nitrate Negative, Urine Bilirubin Negative, Urine Urobilinogen 1.0, Ur Leukocyte Esterase Negative, Urine RBC Occasional, Urine WBC Occasional, Ur Squamous Epith Cells Occasional, Urine Bacteria Trace 09/11/23 10:17: Troponin I 0.02 09/11/23 10:22: VBG pH 7.37, VBG pCO2 69.8 H, VBG pO2 45.9 H, VBG HCO3 39.1 H, V BG Total CO2 41.2 H, VBG O2 Saturation 79.3 H, VBG Base Excess 13.7 H, VBG Lactic Acid 2.0 Orders (Tests/Meds): ED MEDICATIONS Discontinued Medications Generic Name Dose Route Start Last Admin Trade Name Freq PRN Reason Stop Dose Admin Albuterol/Ipratropium 9 ml 09/11/23 06:43 09/11/23 07:47 Ipratropium/Albuterol 3 Ml Neb 09/11/23 06:44 Not Given ONCE ONE Albuterol/Ipratropium 9 ml 09/11/23 07:32 09/11/23 07:39 Ipratropium/Albuterol 3 Ml Neb 09/11/23 07:33 9 ml ONCE ONE Administration Lactated Ringer's 1,000 mls @ 999 mls/hr 09/11/23 06:43 09/11/23 07:39 Lactated Ringer's 1000 Ml Bag IV 09/11/23 07:43 999 mls/hr .Q1H1M ONE Administration Iopamidol 100 ml 09/11/23 07:41 09/11/23 07:42 Iopamidol-370 (76%);100ml Bottle IV 09/11/23 07:42 100 ml ONCE ONE Administration Iopamidol 100 ml 09/11/23 07:41 09/11/23 07:43 Iopamidol-370 (76%);100ml Bottle IV 09/11/23 07:42 100 ml ONCE ONE Administration Sodium Chloride 50 ml 09/11/23 07:41 09/11/23 07:42 0.9 % Sodium Chloride 50 Ml Vial IV 09/11/23 07:42 50 ml ONCE ONE Administration Sodium Chloride 10 ml 09/11/23 07:41 09/11/23 07:42 Sodium Chloride 0.9% 10ml Syr (Rad Only) IV 09/11/23 07:42 10 ml ONCE ONE Administration Sodium Chloride 50 ml 09/11/23 07:41 09/11/23 07:42 0.9 % Sodium Chloride 50 Ml Vial IV 09/11/23 07:42 50 ml ONCE ONE Administration Sodium Chloride 10 ml 09/11/23 07:41 09/11/23 07:43 Sodium Chloride 0.9% 10ml Syr (Rad Only) IV 09/11/23 07:42 10 ml ONCE ONE Administration ORDERS Category Date Time Status CT abdomen pelvis w con Stat Cat Scan 09/11/23 06:[address] angio chest PE protocol Stat Cat Scan 09/11/23 06:[address] angio neck Stat Cat Scan 09/11/23 06:43 Completed Pulmonology Consult [Consult to Pulmonology] [CONS] Cons 09/11/23 12:[address] angio head with & w/o Stat Exams 09/11/23 06:43 Completed CXR --portable [XR chest portable] Stat Exams 09/11/23 06:43 Completed CBC w/Auto Diff [Complete Blood Count Auto Diff] Stat Lab 09/11/23 07:04 Completed CMP [Comprehensive Metabolic Panel] Stat Lab 09/11/23 07:04 Completed Complete Blood Count Auto Diff AMLAB Lab 09/12/23 06:00 Ordered Comprehensive Metabolic Panel AMLAB Lab 09/12/23 06:00 Ordered Magnesium AMLAB Lab 09/12/23 06:00 Ordered Trop I [Troponin I] Stat Lab 09/11/23 07:04 Completed Troponin I Q3H Lab 09/11/23 10:17 Completed Urinalysis and Microscopic Stat Lab 09/11/23 10:04 Completed VBG [Venous Blood Gas] Stat RT 09/11/23 07:19 Completed VBG [Venous Blood Gas] Stat RT 09/11/23 10:22 Completed Medical Decision Narrative: In summary, this 72-year-old female presents to the emergency department today with altered mental status, hypoxia. On initial evaluation patient is bradycardic but hemodynamically stable, afebrile, saturating well on nonrebreather, no adventitious sounds though she is diminished throughout. Differential diagnosis includes but is not limited to hypoxia, hypercarbia, intracranial bleed, stroke, ACS, PE, electrolyte abnormality, dehydration, urinary tract infection, patient appears to have dried emesis on her mouth so I also have concerns for bowel obstruction or other intra-abdominal pathology. Based on these concerns, I ordered serum labs, urinalysis, CT imaging. ECG personally interpreted demonstrates sinus bradycardia, rate 48, normal CA, normal QTc, no STEMI. Patient received DuoNebs, IV fluids for treatment. Labs personally reviewed demonstrate no leukocytosis or anemia, VBG with significant hypercarbia, pCO2 77.4, normal pH at 7.33, VBG lactic normal at 1.8, additional labs pending at the time of physician handoff.. CT head personally interpreted does not demonstrate acute intracranial abnormality such as bleed, mass, or midline shift. See radiology read for final interpretation. Radiology reads pending. Patient handed off to Dr. Tsang for further management and disposition. DO Sharan: I assumed care of the patient at [address] scans do not demonstrate any acutely concerning abnormalities. Labs demonstrate chronic respiratory acidosis that is compensated. Patient desatted on her home 3 L nasal cannula while asleep, so she was placed on BiPAP. Ultimately, we failed to wean her from BiPAP and she continued to have worsening encephalopathy. She did, however, have improvement in her VBG. Given this, I called and had an interactive discussion with the hospitalist who admitted the patient for further evaluation and management. Critical Care <Princess Byrd MD - Last Filed: 09/11/23 07:44> Critical Care Time Critical Care Time: No <Nicole Tsang DO - Last Filed: 09/11/23 14:43> Critical Care Time Critical Care Time: Yes Attestation: On 09/11/23, the high probability of a clinically significant, sudden or life threatening deterioration of the following system(s) required my full and direct attention, intervention and personal management. The time I documented below is in addition to time spent performing reported procedures but includes the following listed in this critical care notation. Total Time Total Critical Care Time: 30
--- NOTE | 2023-09-11 07:01 | ECG_ITS ---
APPROVED REPORT Exam: Resting ECG HR:48 bpm ECG Measurements Heart Rate 48 AXES LA 194 P 89 QRSd 119 QRS 112 QT 492 T 99 QTc 457 Conclusion SINUS BRADYCARDIA ABNORMAL ECG No STEMI Electronically signed by : GALO HUNT, 09/11/2023 07:57:53
--- NOTE | 2023-09-11 07:13 | PC.NURSE ---
Pt to CT via stretcher w/ liner checker
[2023-09-11 07:16] LABS: Albumin Level 4.1 g/dl (3.5-5.0); Chloride 89 mmol/L (98-107); Potassium 3.6 mmoL/L (3.5-5.1); Sodium 139 mmol/L (136-145)
[2023-09-11 07:19] LABS: Alanine Aminotransferase 22 U/L (12-78); Albumin/Globulin Ratio 1.3 (1.1-1.8); Alkaline Phosphatase 81 U/L (38-126); Aspartate Amino Transferase 30 U/L (14-36); Bilirubin,Total 0.7 mg/dl (0.2-1.3); Blood Urea Nitrogen 17 mg/dl (7-17); Calcium 9.1 mg/dl (8.4-10.2); Creatinine Clearance Estimated 45 mL/min (50-200); Estimated Glomerular Filt Rate 54 ml/min (>60); GFR (African American) 66 ML/MIN (>60); Globulin 3.2 g/dL (1.3-3.2); Glucose 121 mg/dl (74-100); Total Protein,Serum 7.3 g/dl (6.3-8.2)
[2023-09-11 07:23] LABS: Basophils # 0.1 K/mm3 (0-0.2); Basophils % 0.9 % (0.1-2.0); Eosinophils # 0.1 K/mm3 (0.0-0.4); Eosinophils % 1.2 % (0.1-12.0); Hematocrit 48.3 % (37.0-47.0); Hemoglobin 14.5 g/dL (12.2-16.2); Lymphocytes # 1.4 K/mm3 (0.7-4.5); Lymphocytes % 17.9 % (10-50); Mean Corpuscular Hemoglobin 24.8 pg (27.0-31.2); Mean Corpuscular Volume 82.7 fl (81-99); Mean Platelet Volume 8.6 fl (7.4-10.4); Monocytes # 0.5 K/mm3 (0.1-1.0); Monocytes % 6.3 % (1.7-9.3); Neutrophils # 5.9 K/mm3 (1.8-7.8); Neutrophils % 73.6 % (37.0-80.0); Platelet Count 259 K/mm3 (142-424); Red Blood Count 5.84 M/mm3 (4.20-5.40)
[2023-09-11 07:31] LABS: Troponin I 0.02 ng/ml (0.00-0.034)
[2023-09-11 07:32] LABS: VBG PH 7.33 mmol/L (7.31-7.41)
[2023-09-11 07:33] LABS: VBG PCO2 77.4 mmol/L (35-51); VBG Total CO2 42.4 mmol/L (23-27)
[2023-09-11 07:34] LABS: Lactate Venous 1.8 mmol/L (0.4-2.0); VBG Base Excess 14.1 mmol/L (-2.4-2.3)
[2023-09-11] MEDS: LACTATED RINGERS 1000ML 1,000 ML 999 ML IV (07:39)
[2023-09-11] MEDS: IPRATROPIUM/ALBUTEROL 3 ML NEB 9 ML IH (07:39)
[2023-09-11] MEDS: 0.9 % SODIUM CHLORIDE 50 ML VIAL IV ×2 (07:42)
[2023-09-11] MEDS: SODIUM CHLORIDE 0.9% 10ML SYR (RAD ONLY) 10 ML IV ×2 (07:42→07:43)
[2023-09-11] MEDS: IOPAMIDOL-370 (76%);100ML BOTTLE 100 ML IV ×2 (07:42→07:43)
[2023-09-11 07:52] LABS: Anion Gap 9.6 mEq/L (5-15); Carbon Dioxide 44 mmol/L (22.0-30.0)
--- NOTE | 2023-09-11 09:01 | PC.NURSE ---
DR SUTHERLAND AT BEDSIDE TO REEVALUATE PT
--- NOTE | 2023-09-11 09:05 | PC.NURSE ---
Called Respiratory per Dr Tsang to have pt put on Bi Pap due to she uses to sleep with at home. Having RT apply that while we are waiting for test results to come back due to pts 02 sat decreasing
[2023-09-11 10:09] LABS: Microscopic, Urine URINE MICROSCOPIC (MICROSCOPIC)
[2023-09-11 10:32] LABS: VBG Base Excess 13.7 mmol/L (-2.4-2.3); VBG HCO3 39.1 mmol/L (23-30); VBG Oxygen Saturation 79.3 % (50-70); VBG PH 7.37 mmol/L (7.31-7.41); VBG PO2 45.9 mmol/L (28-40); VBG Total CO2 41.2 mmol/L (23-27)
[2023-09-11 10:35] LABS: VBG PCO2 69.8 mmol/L (35-51)
[2023-09-11 10:36] LABS: Appearance,Urine CLEAR (Clear); Bilirubin,Urine Negative (Negative); Blood, Urine Negative (Negative); Color,Urine YELLOW (Yellow); Glucose,Urine (UA) 2+ (Negative); Ketones,Urine Negative (Negative); Leukocyte Esterase,Urine Negative (Negative); Nitrate,Urine Negative (Negative); PH,Urine 6.5 (5.0-8.5); Protein,Urine Negative (Negative); Specific Gravity, Urine <= 1.005 (1.005-1.030)
[2023-09-11 10:53] LABS: WBC,Urine Occasional #/hpf (0-3)
[2023-09-11 10:54] LABS: Troponin I 0.02 ng/ml (0.00-0.034)
[2023-09-11 10:54] LABS: Bacteria,Urine Trace /lpf; RBC,Urine Occasional #/hpf (0-3); Squamous Epithelial Cell,Urine Occasional #/hpf (0-5)
--- NOTE | 2023-09-11 12:08 | P.HP_ITS ---
History of Present Illness *Admission Date: 09/11/23 *Reason for visit:: Altered mental status *History of present illness: Ms. Sena is a 72-year-old female well-known to our facility with history of hypertension, hyperlipidemia, COPD on 3 L, A-fib on Eliquis, CHF, sleep apnea necessitating BiPAP nightly. She lives at a long-term care facility. Presented to the ER via EMS due to lethargy and concern for confusion. Found to have elevated CO2. Appears patient is not wearing her BiPAP at night and has developed confusion due to hypercarbia. Blood gas consistent with hypercapnic respiratory failure. Unable to get improvement with BiPAP over an hour or 2 in the ER. Discussed case with ER physician, request admission for further management. Patient denies any fever, chest pain, nausea or vomiting. Will wake to sternal rub on the floor and answer questions but then dozes back off. Remains bradycardic, noted last visit. Heart rate in the 40s. No nausea or vomiting. Blood pressure normal [facility] Disclaimer: The information contained in this section may have been updated after the patient was seen, as this information can be updated by other users. Medical History Chronic respiratory failure with hypoxia and hypercapnia Lung nodule Rotator cuff arthropathy of right shoulder Acute anterior epistaxis Chronic hypoxemic respiratory failure Nodule of left lung Heart attack Encounter for screening for malignant neoplasm of lung COPD mixed type History of smoking 30 or more pack years Dyspnea Bilateral hearing loss due to cerumen impaction Encounter for removal of nasal packing CAD in [place] artery Cardiomyopathy Non-STEMI (non-ST elevated myocardial infarction) Right ventricular dilation Coronary artery disease HFrEF (heart failure with reduced ejection fraction) Pneumonia Diabetes mellitus, type 2 Iron deficiency anemia Pulmonary hypertension Osteoporosis Major depressive disorder Heart failure Depression Lymphedema Insomnia Class 2 obesity due to excess calories with body mass index (BMI) of 39.0 to 39.9 in adult Fibromyalgia Congestive heart failure Atrial fibrillation Anxiety HTN (hypertension) HLD (hyperlipidemia) COPD (chronic obstructive pulmonary disease) BMI 30.0-30.9,adult Osteoarthritis Callus of foot Paresthesia of both lower extremities Onychodystrophy Onychomycosis Diabetic foot Surgical History History of coronary artery stent placement History of bladder surgery H/O: hysterectomy H/O hernia repair Family History Other Diabetes Hyperlipidemia Hypertension No significant family history Social History Smoking Status: Unknown if ever smoked alcohol intake: never substance use type: denies use current occupational status: retired and disabled Travel in the last 8 weeks: None housing: halfway lives independently: No halfway: Yes caffeine: Yes Review of Systems Review of Systems Review of systems (narrative): 14 point review of systems performed, pertinent positives and negatives as per [facility] Meds Home Medications and Allergies Home Medications ?Medication ?Instructions ?Recorded ?Confirmed ?Type ergocalciferol (vitamin D2) 1,250 1,250 mcg PO DIRECTED 08/12/20 09/11/23 History mcg (50,000 unit) capsule albuterol sulfate 90 mcg/actuation 2 puff inhalation Q4HP PRN 12/18/22 09/11/23 History aerosol inhaler Shortness Of Breath Or Wheezing apixaban 5 mg tablet (Eliquis) 5 mg PO BID 12/18/22 09/11/23 History docusate sodium 100 mg tablet 100 mg PO BID 12/18/22 09/11/23 History ferrous sulfate 324 mg (65 mg 324 mg PO DAILY 12/18/22 09/11/23 History iron) tablet,delayed release icosapent ethyl 1 gram capsule 1 g PO BID 12/18/22 09/11/23 History (Vascepa) insulin lispro 100 unit/mL 0 sliding scale dose SQ ACHS 12/18/22 09/11/23 History subcutaneous pen Diabetes multivitamin 1 tab PO DAILY 12/18/22 09/11/23 History nitroglycerin 0.4 mg sublingual 0.4 mg sublingual Q5MINP PRN Chest 12/18/22 09/11/23 History tablet Pain omeprazole 40 mg capsule,delayed 40 mg PO HS 12/18/22 09/11/23 History release acetaminophen 500 mg tablet 500 mg PO AC 12/19/22 09/11/23 History albuterol sulfate 2.5 mg/3 mL 2.5 mg inhalation Q4HP PRN 12/19/22 09/11/23 History (0.083 %) solution for nebulization shortness of air or wheezing gabapentin 300 mg capsule 300 mg PO BID 12/19/22 09/11/23 History hydrocodone 5 mg-acetaminophen 325 1 tab PO Q12HP PRN Moderate Pain 01/12/23 09/11/23 History mg tablet (Scale Score 5-6) clopidogrel 75 mg tablet 75 mg PO DAILY 03/18/23 09/11/23 History clobetasol 0.05 % shampoo 1 applic topical HS 04/19/23 09/11/23 History empagliflozin 10 mg tablet 10 mg PO DAILY 04/19/23 09/11/23 History (Jardiance) insulin glargine 100 unit/mL (3 14 unit SQ HS Diabetes 04/19/23 09/11/23 History mL) subcutaneous pen (Lantus Solostar U-100 Insulin) levothyroxine 50 mcg tablet 50 mcg PO DAILYDM 04/19/23 09/11/23 History miconazole nitrate 2 % topical 1 applic topical BID 04/19/23 09/11/23 History cream ondansetron 4 mg disintegrating 4 mg PO Q6HP PRN Nausea And 04/19/23 09/11/23 History tablet Vomiting bumetanide 2 mg tablet 2 mg PO BID #60 tabs 04/30/23 09/11/23 Rx buspirone 10 mg tablet 10 mg PO TID 07/04/23 09/11/23 History cetirizine 10 mg tablet 10 mg PO DAILY 08/07/23 09/11/23 History fluticasone fur. 100 mcg-umeclid 1 inh inhalation DAILY 08/13/23 09/11/23 History 62.5 mcg-vilant 25 mcg inhalat.powder (Trelegy Ellipta) paroxetine HCl 40 mg tablet (Paxil) 40 mg PO HS 08/13/23 09/11/23 History rosuvastatin 10 mg tablet 10 mg PO HS 08/13/23 09/11/23 History spironolactone 50 mg tablet 50 mg PO DAILY 08/13/23 09/11/23 History polyethylene glycol 3350 17 17 g PO DAILY 08/14/23 09/11/23 History gram/dose oral powder New Prescriptions to Start Prescriptions: Allergies Allergy/AdvReac Type Severity Reaction Status Date / Time cephalexin Allergy Verified 09/10/23 13:23 Penicillins Allergy Verified 09/10/23 13:23 Exam Data for Last 24 hours Vital signs and Labs for Last 24 Hours: Temp Pulse Resp BP Pulse Ox O2 Del Method O2 Flow Rate 97.8 F 58 L 20 113/57 L 97 BiPAP 15 09/11/23 05:58 09/11/23 11:00 09/11/23 10:00 09/11/23 11:00 09/11/23 11:00 09/11/23 10:00 09/11/23 05:58 FiO2 40 09/11/23 08:20 Laboratory Results - last 24 hr 09/11/23 07:04: WBC 8.0, RBC 5.84 H, Hgb 14.5, Hct 48.3 H, MCV 82.7, MCH 24.8 L, MCHC 30.0 L, RDW 22.0 H, Plt Count 259, MPV 8.6, Neut % (Auto) 73.6, Lymph % (Auto) 17.9, [place] % (Auto) 6.3, Eos % (Auto) 1.2, Baso % (Auto) 0.9, Neut # (Auto) 5.9, Lymph # (Auto) 1.4, [place] # (Auto) 0.5, Eos # (Auto) 0.1, Baso # (Auto) 0.1, Sodium 139, Potassium 3.6, Chloride 89 L, Carbon Dioxide 44 H*, Anion Gap 9.6, BUN 17, Creatinine 1.00, Estimated Creat Clear 45, Estimated GFR 54 L, Est GFR ( Amer) 66, Glucose 121 H, Calcium 9.1, Total Bilirubin 0.7, AST 30, ALT 22, Alkaline Phosphatase 81, Troponin I 0.02, Total Protein 7.3 D, Albumin 4.1, Globulin 3.2, Albumin/Globulin Ratio 1.3 09/11/23 07:19: VBG pH 7.33, VBG pCO2 77.4 H, VBG pO2 45.0 H, VBG HCO3 40.0 H, VBG Total CO2 42.4 H, VBG O2 Saturation 76.0 H, VBG Base Excess 14.1 H, VBG Lactic Acid 1.8 09/11/23 10:04: Urine Color Yellow, Urine Appearance Clear, Urine pH 6.5, Ur Specific [place] <= 1.005, Urine Protein Negative, Urine Glucose (UA) 2+, Urine Ketones Negative, Urine Blood Negative, Urine Nitrate Negative, Urine Bilirubin Negative, Urine Urobilinogen 1.0, Ur Leukocyte Esterase Negative, Urine RBC Occasional, Urine WBC Occasional, Ur Squamous Epith Cells Occasional, Urine Bacteria Trace 09/11/23 10:17: Troponin I 0.02 09/11/23 10:22: VBG pH 7.37, VBG pCO2 69.8 H, VBG pO2 45.9 H, VBG HCO3 39.1 H, VBG Total CO2 41.2 H, VBG O2 Saturation 79.3 H, VBG Base Excess 13.7 H, VBG Lactic Acid 2.0 I & O for Last 24 hours: Intake & Output 09/08/23 09/09/23 09/10/23 09/11/23 23:59 23:59 23:59 23:59 Weight 113.398 kg Constitutional Constitutional: mild distress, morbidly obese, chronically ill appearing and cooperative *Routine HEENT Exam Head: Present normocephalic Eye: Present EOMI ENT: Present mucous membranes moist *Routine Neck Exam Neck: Present supple and trachea midline; Absent JVD or lymphadenopathy *Routine Respiratory Exam Respiratory: Present prolonged expiratory phase, distant breath sounds, diminished air movement, normal respiratory effort and symmetric chest movement; Absent rhonchi or crackles *Routine Cardiovascular Exam Cardiovascular: Present bradycardia *Routine Abdominal Exam Abdominal: Present soft and normoactive bowel sounds; Absent tenderness *Routine Rectal Exam Rectal:: deferred *Routine Genitalia Exam Genitalia:: deferred *Routine Extremities Exam Extremities: Present edema (3+ to knees) and full ROM; Absent calf tenderness *Routine Skin Exam Skin: Present warm and wounds; Absent rash Comments: Chronic stasis changes of lower extremity *Routine Neurological Exam Neurological: Present alert, oriented X3, moving all extremities, hearing grossly intact and normal speech Comments: More oriented after arriving to the floor. Groggy but is oriented x 3 Routine Psychiatric Exam Psychiatric: Present cooperative Assessment and Plan *Assessment and plan (1) Acute hypercapnic respiratory failure: Status: Acute Category: Medical Code(s): J96.02 - Acute respiratory failure with hypercapnia (2) CO2 narcosis: Status: Acute Category: Medical Code(s): R06.89 - Other abnormalities of breathing (3) Bradycardia: Status: Acute Category: Medical Code(s): R00.1 - Bradycardia, unspecified (4) Acute on chronic respiratory failure with hypoxemia: Status: Acute Category: Medical Code(s): J96.21 - Acute and chronic respiratory failure with hypoxia (5) NARCISO (obstructive sleep apnea): Problem Comment: Active patient at [facility] Status: Chronic Category: Medical Code(s): G47.33 - Obstructive sleep apnea (adult) (pediatric) (6) Atrial fibrillation: Status: Acute Qualifiers: Atrial fibrillation type: unspecified chronic Qualified Code(s): I48.20 - Chronic atrial fibrillation, unspecified Category: Medical Code(s): I48.91 - Unspecified atrial fibrillation (7) Diabetes mellitus, type 2: Status: Acute Qualifiers: Diabetes mellitus complication status: with other specified complication 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: 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 use Qualified Code(s): E11.69 - Type 2 diabetes mellitus with other specified complication; Z79.4 - manager long term care (current) use of insulin Category: Medical Code(s): E11.9 - Type 2 diabetes mellitus without complications (8) HTN (hypertension): Status: Acute Qualifiers: Hypertension type: primary hypertension Qualified Code(s): I10 - Essential (primary) hypertension Category: Medical Code(s): I10 - Essential (primary) hypertension (9) HLD (hyperlipidemia): Status: Acute Qualifiers: Hyperlipidemia type: mixed hyperlipidemia Qualified Code(s): E78.2 - Mixed hyperlipidemia Category: Medical Code(s): E78.5 - Hyperlipidemia, unspecified (10) Pulmonary hypertension: Status: Acute Category: Medical Code(s): I27.20 - Pulmonary hypertension, unspecified (11) Coronary artery disease: Status: Acute Qualifiers: Associated angina: with other forms of angina Coronary Disease- Associated Artery/Lesion type: [place] artery [place] vs. transplanted heart: [place] heart Qualified Code(s): I25.118 - Atherosclerotic heart disease of [place] coronary artery with other forms of angina pectoris Category: Medical Code(s): I25.10 - Atherosclerotic heart disease of [place] coronary artery without angina pectoris Plan 72-year-old female with complex past medical history, heart failure, respiratory failure, who presented with symptomatic bradycardia and hypotension. Also found to be in hypercapnic respiratory failure. Initiated on BiPAP and received calcium in the ER. Discussed case with ER physician, request admission for treatment of hypercapnic respiratory failure. I agreed to admit for further management. Initiated on BiPAP. Problems addressed as follows: Acute on chronic hypercapnic respiratory failure Chronic hypoxemic respiratory failure NARCISO CO2 narcosis - Confused on admission. VBG with pH 7.33, pCO2 77. Labs with level of compensation, bicarb on CMP of 44. Initiated on BiPAP. Having response. Pulmonology consulted to assist with care - Continue BiPAP with pressures of 16/8, rate of 20, 35% FiO2. --No indication for antibiotics. White cell count of 8 -Holding sedating meds including her home hydrocodone and gabapentin - kidney function normal with BUN 17, creatinine 1.0. -Continue supplemental oxygen as needed, 35% while on BiPAP, 3 L while not on BiPAP. Goal sats greater 90% -Patient to wear BiPAP while napping or asleep. Okay to take it off for meals and 2 hours after. Bradycardia Atrial fibrillation -Remains to cardiac. Rate only meds at this time. Sinus bradycardia. -Monitor on telemetry -Blood pressure normal. -Continue Eliquis stable the medical patient. -If develops A-fib, will initiate amiodarone Polypharmacy Chronic pain -Patient on gabapentin and hydrocodone they can be sedating. -Holding antihistamines -Discontinuing her trazodone Anxiety: Appears to no longer be on amitriptyline nightly. Continue BuSpar 10 mg 3 times a day, continue Paxil 40 mg nightly Diabetes: Continue sliding scale insulin with fingersticks ACHS Class II obesity complicates all aspects of care Full code Diabetic diet
--- NOTE | 2023-09-11 12:24 | PC.NURSE ---
Cass from second floor took report for pt. Nurse states that they are moving beds around upstairs and once the room is clean, they will come down to transport pt.
--- NOTE | 2023-09-11 12:39 | HMH.PHAINT1 ---
Pharmacy Intervention Comments: MEDICATION RECONCILIATION COMPLETED ON PATIENT USING DISCHARGE SUMMARY FROM PREVIOUS ADMISSION. -MARGIE MERCADO, YOBANID
--- NOTE | 2023-09-11 12:44 | SW/DCPLANNER ---
This patient currently resides at [facility] level of care. I will continue to follow up w/ Lauryn at [facility] until patient is medically stable for discharge. Discharge date is unknown at this time.
[2023-09-11] MEDS: BUMETANIDE 1 MG TABLET 2 MG PO (17:00)
[2023-09-11] MEDS: ACETAMINOPHEN 325MG TAB 650 MG PO (18:23)
[2023-09-11] MEDS: PARoxetine 20MG TABLET 40 MG PO (20:34)
[2023-09-11] MEDS: APIXABAN 5MG TABLET 5 MG PO (20:35)
[2023-09-11] MEDS: ATORVASTATIN 40MG TABLET 40 MG PO (20:35)
[2023-09-11] MEDS: DOCUSATE SODIUM 100 MG CAPSULE PO (20:35)
[2023-09-11] MEDS: ONDANSETRON 4MG/2ML VIAL 4 MG IV (22:26)
[2023-09-11] MEDS: LORATADINE 10MG TABLET 10 MG PO (23:00)
[2023-09-11] MEDS: PROMETHAZINE HCL 25MG/ML 1ML VIAL 6.25 MG IV (23:02)
[2023-09-11] MEDS: SODIUM CHLORIDE 0.9% 25ML BAG 25 ML IV (23:02)
--- NOTE | 2023-09-11 23:09 | EXP.PN ---
Subjective *Date: 09/12/23 *Time: 03:41 Interval history: Nausea and vomiting, pruritic skin Exam Data for Last 24 hours Vital signs and Labs for Last 24 Hours: Temp Pulse Resp BP Pulse Ox O2 Del Method O2 Flow Rate 98.9 F 58 L 20 138/60 92 L Nasal Cannula 2 09/11/23 20:00 09/11/23 22:00 09/11/23 22:00 09/11/23 22:00 09/11/23 22:00 09/11/23 22:00 09/11/23 22:00 FiO2 35 09/11/23 18:43 Laboratory Results - last 24 hr 09/11/23 07:04: WBC 8.0, RBC 5.84 H, Hgb 14.5, Hct 48.3 H, MCV 82.7, MCH 24.8 L, MCHC 30.0 L, RDW 22.0 H, Plt Count 259, MPV 8.6, Neut % (Auto) 73.6, Lymph % (Auto) 17.9, [place] % (Auto) 6.3, Eos % (Auto) 1.2, Baso % (Auto) 0.9, Neut # (Auto) 5.9, Lymph # (Auto) 1.4, [place] # (Auto) 0.5, Eos # (Auto) 0.1, Baso # (Auto) 0.1, Sodium 139, Potassium 3.6, Chloride 89 L, Carbon Dioxide 44 H*, Anion Gap 9.6, BUN 17, Creatinine 1.00, Estimated Creat Clear 45, Estimated GFR 54 L, Est GFR ( Amer) 66, Glucose 121 H, Calcium 9.1, Total Bilirubin 0.7, AST 30, ALT 22, Alkaline Phosphatase 81, Troponin I 0.02, Total Protein 7.3 D, Albumin 4.1, Globulin 3.2, Albumin/Globulin Ratio 1.3 09/11/23 07:19: VBG pH 7.33, VBG pCO2 77.4 H, VBG pO2 45.0 H, VBG HCO3 40.0 H, VBG Total CO2 42.4 H, VBG O2 Saturation 76.0 H, VBG Base Excess 14.1 H, VBG Lactic Acid 1.8 09/11/23 10:04: Urine Color Yellow, Urine Appearance Clear, Urine pH 6.5, Ur Specific [place] <= 1.005, Urine Protein Negative, Urine Glucose (UA) 2+, Urine Ketones Negative, Urine Blood Negative, Urine Nitrate Negative, Urine Bilirubin Negative, Urine Urobilinogen 1.0, Ur Leukocyte Esterase Negative, Urine RBC Occasional, Urine WBC Occasional, Ur Squamous Epith Cells Occasional, Urine Bacteria Trace 09/11/23 10:17: Troponin I 0.02 09/11/23 10:22: VBG pH 7.37, VBG pCO2 69.8 H, VBG pO2 45.9 H, VBG HCO3 39.1 H, VBG Total CO2 41.2 H, VBG O2 Saturation 79.3 H, VBG Base Excess 13.7 H, VBG Lactic Acid 2.0 I & O for Last 24 hours: Intake & Output 09/08/23 09/09/23 09/10/23 09/11/23 23:59 23:59 23:59 23:59 Weight 113.398 kg Constitutional Constitutional: mild distress Comments: Floor nurse called let me know that the patient was nauseated and vomiting, medication given and when I came to the room the patient was now feeling better. She noted that she had itchy skin, that has been a problem for several days *Routine Respiratory Exam Respiratory: Present normal respiratory effort *Routine Cardiovascular Exam Cardiovascular: Present RRR *Routine Abdominal Exam Abdominal: Present soft and tenderness (Generalized tenderness) Comments: Hyperactive bowel sounds *Routine Skin Exam Skin: Present intact and dry Comments: Skin is intact fairly dry poor turgor but is pruritic to the patient can see where she has been scratching and she is showing me small bumps on her skin. That she says are quite itchy. Assessment and Plan *Assessment and plan (1) Nausea and vomiting in adult patient: Status: Acute Category: Medical Code(s): R11.2 - Nausea with vomiting, unspecified (2) Itchy skin: Status: Acute Category: Medical Code(s): L29.9 - Pruritus, unspecified Plan 1. Nausea vomiting: Patient was given Zofran 4 IV which seems to have helped. Have also added a low-dose Phenergan if the Zofran does not control it in the future 2, pruritic skin: Skin appears to be dry is really kind of poor turgor there is some redness where she has been rubbing or scratching to the left arm, will add Claritin to see if this will help. If continues we will have to find some type of medicating body lotion which may help and this might just be the factor skin is dry. 03:41 patient still itching will give 40 mg prednisone po once
[2023-09-12] VITALS (8 sets, daily range): BP systolic 120–149; BP diastolic 53–65; PULSE 40–64; RESP 6–20; TEMP 36.4–37; O2SAT 90–96; BMI 36.4
[2023-09-12] MEDS: predniSONE 20MG TAB 40 MG PO (03:52)
--- NOTE | 2023-09-12 04:52 | PC.NURSE ---
Patient rested well throughout shift with acute changes. She has worn her BiPAP intermittently without issue. Adequate urinary output via purewick. VSS, NAD.
[2023-09-12] MEDS: LEVOTHYROXINE 50MCG (0.05MG) TAB 50 MCG PO (06:11)
[2023-09-12 06:21] LABS: POC Glucose,Bedside 114 (70-110)
[2023-09-12 06:21] LABS: POC Glucose,Bedside 141 (70-110)
[2023-09-12] MEDS: FLUTICASONE/UMECLIDIN/VILANTER 100/62.5/25MCG INHALER 1 PUFF IH (06:22)
[2023-09-12 06:26] LABS: Albumin Level 3.3 g/dl (3.5-5.0); Chloride 91 mmol/L (98-107); Potassium 3.7 mmoL/L (3.5-5.1); Sodium 133 mmol/L (136-145)
[2023-09-12 06:28] LABS: Blood Urea Nitrogen 14 mg/dl (7-17); Creatinine Clearance Estimated 78 mL/min (50-200); Estimated Glomerular Filt Rate 61 ml/min (>60); GFR (African American) 74 ML/MIN (>60)
[2023-09-12 06:29] LABS: Alanine Aminotransferase 15 U/L (12-78); Albumin/Globulin Ratio 1.2 (1.1-1.8); Alkaline Phosphatase 71 U/L (38-126); Aspartate Amino Transferase 24 U/L (14-36); Bilirubin,Total 0.6 mg/dl (0.2-1.3); Calcium 8.6 mg/dl (8.4-10.2); Globulin 2.7 g/dL (1.3-3.2); Glucose 98 mg/dl (74-100)
[2023-09-12 06:30] LABS: Magnesium 1.8 mg/dl (1.6-2.3)
[2023-09-12 06:55] LABS: Basophils % 0.6 % (0.1-2.0); Eosinophils # 0.1 K/mm3 (0.0-0.4); Eosinophils % 1.1 % (0.1-12.0); Hematocrit 42.9 % (37.0-47.0); Lymphocytes # 0.9 K/mm3 (0.7-4.5); Lymphocytes % 11.3 % (10-50); Mean Corpuscular Hemoglobin 24.7 pg (27.0-31.2); Mean Corpuscular Volume 82.5 fl (81-99); Mean Platelet Volume 8.8 fl (7.4-10.4); Monocytes # 0.3 K/mm3 (0.1-1.0); Monocytes % 4.5 % (1.7-9.3); Neutrophils # 6.3 K/mm3 (1.8-7.8); Neutrophils % 82.5 % (37.0-80.0); Platelet Count 282 K/mm3 (142-424); Red Blood Count 5.21 M/mm3 (4.20-5.40); Red Cell Distribution Width 21.9 % (11.5-17.5); White Blood Count 7.6 K/mm3 (4.8-10.8)
[2023-09-12 07:09] LABS: Anion Gap 7.7 mEq/L (5-15); Carbon Dioxide 38 mmol/L (22.0-30.0)
[2023-09-12] MEDS: LORATADINE 10MG TABLET 10 MG PO (08:07)
[2023-09-12] MEDS: BUMETANIDE 1 MG TABLET 2 MG PO (08:08)
[2023-09-12] MEDS: APIXABAN 5MG TABLET 5 MG PO (08:08)
[2023-09-12] MEDS: DIPHENHYDRAMINE 2% CREAM 28GM TP (08:08)
[2023-09-12] MEDS: SPIRONOLACTONE 25MG TABLET 50 MG PO (08:08)
[2023-09-12] MEDS: CLOPIDOGREL 75MG TAB 75 MG PO (08:08)
[2023-09-12] MEDS: EMPAGLIFLOZIN 10MG TABLET 10 MG PO (08:09)
[2023-09-12 09:18] LABS: VBG Base Excess 7.7 mmol/L (-2.4-2.3); VBG HCO3 32.8 mmol/L (23-30); VBG Oxygen Saturation 94.6 % (50-70); VBG PH 7.38 mmol/L (7.31-7.41); VBG PO2 76.5 mmol/L (28-40); VBG Total CO2 34.6 mmol/L (23-27)
[2023-09-12 09:20] LABS: VBG PCO2 56.5 mmol/L (35-51)
--- NOTE | 2023-09-12 09:39 | EXP.DC.SUM ---
General Admission date:: 09/11/23 Discharge date: 09/12/23 HPI HPI HPI: Ms. Sena is a 72-year-old female well-known to our facility with history of hypertension, hyperlipidemia, COPD on 3 L, A-fib on Eliquis, CHF, sleep apnea necessitating BiPAP nightly. She lives at a long-term care facility. Presented to the ER via EMS due to lethargy and concern for confusion. Found to have elevated CO2. Appears patient is not wearing her BiPAP at night and has developed confusion due to hypercarbia. Blood gas consistent with hypercapnic respiratory failure. Unable to get improvement with BiPAP over an hour or 2 in the ER. Discussed case with ER physician, request admission for further management. Patient denies any fever, chest pain, nausea or vomiting. Will wake to sternal rub on the floor and answer questions but then dozes back off. Remains bradycardic, noted last visit. Heart rate in the 40s. No nausea or vomiting. Blood pressure normal Hospital Course Hospital Course Hospital Course: 72-year-old female with complex past medical history, heart failure, respiratory failure, who presented with symptomatic bradycardia and hypotension. Also found to be in hypercapnic respiratory failure. Initiated on BiPAP and received calcium in the ER. Discussed case with ER physician, request admission for treatment of hypercapnic respiratory failure. I agreed to admit for further management. Initiated on BiPAP. Did well overnight. Gas better in the morning. Patient at baseline level of function. No acute needs to continue to stay hospitalized. Strongly recommend patient wear her BiPAP when she returns back to her [facility] facility or she is at high risk for readmission. She has proven multiple times with recent admissions that it is vital for her to have her BiPAP to maintain appropriate CO2 levels. Problems addressed as follows: Acute on chronic hypercapnic respiratory failure Chronic hypoxemic respiratory failure NARCISO CO2 narcosis - Confused on admission. VBG with pH 7.33, pCO2 77. Labs with level of compensation, bicarb on CMP of 44. Initiated on BiPAP. Had good response. Pulmonology was consulted. Continue BiPAP therapy at PEEP of 10 PS of 10 and a maximum pressure of 22. Patient strongly advised to be more compliant. Will follow in the clinic as previously scheduled in 4 weeks with repeat ABG, before deciding the need for escalation to BiPAP ST/Trilogy. Continue Trelegy 100 inhaler. DuoNebs every 6 hours on as-needed basis. Blood gas normal in the morning at 7.38, pCO2 of 56, pO2 of 76. Stable to discharge back to [facility] to continue to wear BiPAP while napping or asleep at night. -No concern for respiratory infection. No antibiotics. Bradycardia Atrial fibrillation -Remains bradycardic. In sinus rhythm. Heart rate 40s to 50s during admission. Monitored on telemetry. Blood pressures normal. Continued Eliquis. No indication for rate controlling medication at this time. Polypharmacy Chronic pain -Patient on gabapentin and hydrocodone they can be sedating. Held during admission. Would recommend considering de-escalating these medications of not stopping them altogether. Recommend holding her antihistamines. Would benefit from topical Benadryl or moisturizing lotion to help with her itch on her skin. Discontinued her trazodone during admission. Anxiety: Appears to no longer be on amitriptyline nightly. Continue BuSpar 10 mg 3 times a day, continue Paxil 40 mg nightly Diabetes: Resume home regimen at discharge. See med rec for full details medication changes. Total time spent on discharge 32 minutes in counseling, documentation, chart review, and direct care with patient. Exam Data for Last 24 hours Vital signs and Labs for Last 24 Hours: Temp Pulse Resp BP Pulse Ox O2 Del Method O2 Flow Rate 98.6 F 56 L 20 132/56 L 90 L Nasal Cannula 3 09/12/23 08:00 09/12/23 08:00 09/12/23 08:00 09/12/23 08:00 09/12/23 08:00 09/12/23 08:00 09/12/23 08:00 FiO2 35 09/12/23 02:01 Laboratory Results - last 24 hr 09/11/23 10:04: Urine Color Yellow, Urine Appearance Clear, Urine pH 6.5, Ur Specific Williams <= 1.005, Urine Protein Negative, Urine Glucose (UA) 2+, Urine Ketones Negative, Urine Blood Negative, Urine Nitrate Negative, Urine Bilirubin Negative, Urine Urobilinogen 1.0, Ur Leukocyte Esterase Negative, Urine RBC Occasional, Urine WBC Occasional, Ur Squamous Epith Cells Occasional, Urine Bacteria Trace 09/11/23 10:17: Troponin I 0.02 09/11/23 10:22: VBG pH 7.37, VBG pCO2 69.8 H, VBG pO2 45.9 H, VBG HCO3 39.1 H, VBG Total CO2 41.2 H, VBG O2 Saturation 79.3 H, VBG Base Excess 13.7 H, VBG Lactic Acid 2.0 09/11/23 15:49: POC Glucose 141 H 09/12/23 05:21: WBC 7.6, RBC 5.21, Hct 42.9, MCV 82.5, MCH 24.7 L, MCHC 30.0 L, RDW 21.9 H, Plt Count 282, MPV 8.8, Neut % (Auto) 82.5 H, Lymph % (Auto) 11.3, Hawkins % (Auto) 4.5, Eos % (Auto) 1.1, Baso % (Auto) 0.6, Neut # (Auto) 6.3, Lymph # (Auto) 0.9, Hawkins # (Auto) 0.3, Eos # (Auto) 0.1, Baso # (Auto) 0.0, Sodium 133 L, Potassium 3.7, Chloride 91 L, Carbon Dioxide 38 H, Anion Gap 7.7, BUN 14, Creatinine 0.90, Estimated Creat Clear 78, Estimated GFR 61, Est GFR ( Amer) 74, Glucose 98, Calcium 8.6, Magnesium 1.8, Total Bilirubin 0.6, AST 24, ALT 15 D, Alkaline Phosphatase 71, Total Protein 6.0 L, Albumin 3.3 L D, Globulin 2.7, Albumin/Globulin Ratio 1.2 09/12/23 06:06: POC Glucose 114 H 09/12/23 08:00: VBG pH 7.38, VBG pCO2 56.5 H, VBG pO2 76.5 H, VBG HCO3 32.8 H, VBG Total CO2 34.6 H, VBG O2 Saturation 94.6 H, VBG Base Excess 7.7 H, VBG Lactic Acid 1.0 I & O for Last 24 hours: Intake & Output 09/09/23 09/10/23 09/11/23 09/12/23 23:59 23:59 23:59 23:59 Intake Total 0 / 0 Output Total 1849 Balance -1849 / Weight 113.398 kg 99.201 kg Constitutional Constitutional: no acute distress, obese, chronically ill appearing and cooperative *Routine HEENT Exam Head: Present normocephalic Eye: Present EOMI and PERRL ENT: Present mucous membranes moist *Routine Neck Exam Neck: Present supple; Absent lymphadenopathy *Routine Respiratory Exam Respiratory: Present prolonged expiratory phase and crackles (minimal in bases); Absent rhonchi or wheezes *Routine Cardiovascular Exam Cardiovascular: Present bradycardia *Routine Abdominal Exam Abdominal: Present soft and normoactive bowel sounds; Absent tenderness *Routine Rectal Exam Patient deferred: visual exam *Routine Exam Patient deferred: external exam *Routine Extremities Exam Extremities: Present edema (1+ to knees); Absent cyanosis or clubbing *Routine Skin Exam Skin: Present warm; Absent rash Comments: Chronic stasis dermatitis in the extremities *Routine Neurological Exam Neurological: Present alert, oriented X3 and moving all extremities; Absent altered mental status Results Data Completed and Pending Labs on day of discharge: Labs from last 24 hours 09/12/23 09/12/23 09/12/23 08:00 06:06 05:21 WBC 7.6 RBC 5.21 Hct 42.9 MCV 82.5 MCH 24.7 L MCHC 30.0 L RDW 21.9 H Plt Count 282 MPV 8.8 Neut % (Auto) 82.5 H Lymph % (Auto) 11.3 Hawkins % (Auto) 4.5 Eos % (Auto) 1.1 Baso % (Auto) 0.6 Neut # (Auto) 6.3 Lymph # (Auto) 0.9 Hawkins # (Auto) 0.3 Eos # (Auto) 0.1 Baso # (Auto) 0.0 VBG pH 7.38 VBG pCO2 56.5 H VBG pO2 76.5 H VBG HCO3 32.8 H VBG Total CO2 34.6 H VBG O2 Saturation 94.6 H VBG Base Excess 7.7 H VBG Lactic Acid 1.0 Sodium 133 L Potassium 3.7 Chloride 91 L Carbon Dioxide 38 H Anion Gap 7.7 BUN 14 Creatinine 0.90 Estimated Creat Clear 78 Estimated GFR 61 Est GFR ( Amer) 74 Glucose 98 POC Glucose 114 H Calcium 8.6 Magnesium 1.8 Total Bilirubin 0.6 AST 24 ALT 15 D Alkaline Phosphatase 71 Troponin I Total Protein 6.0 L Albumin 3.3 L D Globulin 2.7 Albumin/Globulin Ratio 1.2 Urine Color Urine Appearance Urine pH Ur Specific Williams Urine Protein Urine Glucose (UA) Urine Ketones Urine Blood Urine Nitrate Urine Bilirubin Urine Urobilinogen Ur Leukocyte Esterase Urine RBC Urine WBC Ur Squamous Epith Cells Urine Bacteria 09/11/23 09/11/23 09/11/23 15:49 10:22 10:17 WBC RBC Hct MCV MCH MCHC RDW Plt Count MPV Neut % (Auto) Lymph % (Auto) Hawkins % (Auto) Eos % (Auto) Baso % (Auto) Neut # (Auto) Lymph # (Auto) Hawkins # (Auto) Eos # (Auto) Baso # (Auto) VBG pH 7.37 VBG pCO2 69.8 H VBG pO2 45.9 H VBG HCO3 39.1 H VBG Total CO2 41.2 H VBG O2 Saturation 79.3 H VBG Base Excess 13.7 H VBG Lactic Acid 2.0 Sodium Potassium Chloride Carbon Dioxide Anion Gap BUN Creatinine Estimated Creat Clear Estimated GFR Est GFR ( Amer) Glucose POC Glucose 141 H Calcium Magnesium Total Bilirubin AST ALT Alkaline Phosphatase Troponin I 0.02 Total Protein Albumin Globulin Albumin/Globulin Ratio Urine Color Urine Appearance Urine pH Ur Specific Williams Urine Protein Urine Glucose (UA) Urine Ketones Urine Blood Urine Nitrate Urine Bilirubin Urine Urobilinogen Ur Leukocyte Esterase Urine RBC Urine WBC Ur Squamous Epith Cells Urine Bacteria 09/11/23 10:04 WBC RBC Hct MCV MCH MCHC RDW Plt Count MPV Neut % (Auto) Lymph % (Auto) Hawkins % (Auto) Eos % (Auto) Baso % (Auto) Neut # (Auto) Lymph # (Auto) Hawkins # (Auto) Eos # (Auto) Baso # (Auto) VBG pH VBG pCO2 VBG pO2 VBG HCO3 VBG Total CO2 VBG O2 Saturation VBG Base Excess VBG Lactic Acid Sodium Potassium Chloride Carbon Dioxide Anion Gap BUN Creatinine Estimated Creat Clear Estimated GFR Est GFR ( Amer) Glucose POC Glucose Calcium Magnesium Total Bilirubin AST ALT Alkaline Phosphatase Troponin I Total Protein Albumin Globulin Albumin/Globulin Ratio Urine Color Yellow Urine Appearance Clear Urine pH 6.5 Ur Specific Williams <= 1.005 Urine Protein Negative Urine Glucose (UA) 2+ Urine Ketones Negative Urine Blood Negative Urine Nitrate Negative Urine Bilirubin Negative Urine Urobilinogen 1.0 Ur Leukocyte Esterase Negative Urine RBC Occasional Urine WBC Occasional Ur Squamous Epith Cells Occasional Urine Bacteria Trace DS: Diagnosis Discharge Diagnosis (1) Nausea and vomiting in adult patient: Status: Acute Code(s): R11.2 - Nausea with vomiting, unspecified (2) Itchy skin: Status: Acute Code(s): L29.9 - Pruritus, unspecified Meds Home Medications and Allergies Home Medications ?Medication ?Instructions ?Recorded ?Confirmed ?Type ergocalciferol (vitamin D2) 1,250 1,250 mcg PO DIRECTED 08/12/20 09/11/23 History mcg (50,000 unit) capsule albuterol sulfate 90 mcg/actuation 2 puff inhalation Q4HP PRN 12/18/22 09/11/23 History aerosol inhaler Shortness Of Breath Or Wheezing apixaban 5 mg tablet (Eliquis) 5 mg PO BID 12/18/22 09/11/23 History docusate sodium 100 mg tablet 100 mg PO BID 12/18/22 09/11/23 History ferrous sulfate 324 mg (65 mg 324 mg PO DAILY 12/18/22 09/11/23 History iron) tablet,delayed release icosapent ethyl 1 gram capsule 1 g PO BID 12/18/22 09/11/23 History (Vascepa) insulin lispro 100 unit/mL 0 sliding scale dose SQ ACHS 12/18/22 09/11/23 History subcutaneous pen Diabetes multivitamin 1 tab PO DAILY 12/18/22 09/11/23 History nitroglycerin 0.4 mg sublingual 0.4 mg sublingual Q5MINP PRN Chest 12/18/22 09/11/23 History tablet Pain omeprazole 40 mg capsule,delayed 40 mg PO HS 12/18/22 09/11/23 History release acetaminophen 500 mg tablet 500 mg PO AC 12/19/22 09/11/23 History albuterol sulfate 2.5 mg/3 mL 2.5 mg inhalation Q4HP PRN 12/19/22 09/11/23 History (0.083 %) solution for nebulization shortness of air or wheezing gabapentin 300 mg capsule 300 mg PO BID 12/19/22 09/11/23 History hydrocodone 5 mg-acetaminophen 325 1 tab PO Q12HP PRN Moderate Pain 01/12/23 09/11/23 History mg tablet (Scale Score 5-6) clopidogrel 75 mg tablet 75 mg PO DAILY 03/18/23 09/11/23 History clobetasol 0.05 % shampoo 1 applic topical HS 04/19/23 09/11/23 History empagliflozin 10 mg tablet 10 mg PO DAILY 04/19/23 09/11/23 History (Jardiance) insulin glargine 100 unit/mL (3 14 unit SQ HS Diabetes 04/19/23 09/11/23 History mL) subcutaneous pen (Lantus Solostar U-100 Insulin) levothyroxine 50 mcg tablet 50 mcg PO DAILYDM 04/19/23 09/11/23 History miconazole nitrate 2 % topical 1 applic topical BID 04/19/23 09/11/23 History cream ondansetron 4 mg disintegrating 4 mg PO Q6HP PRN Nausea And 04/19/23 09/11/23 History tablet Vomiting bumetanide 2 mg tablet 2 mg PO BID #60 tabs 04/30/23 09/11/23 Rx buspirone 10 mg tablet 10 mg PO TID 07/04/23 09/11/23 History cetirizine 10 mg tablet 10 mg PO DAILY 08/07/23 09/11/23 History fluticasone fur. 100 mcg-umeclid 1 inh inhalation DAILY 08/13/23 09/11/23 History 62.5 mcg-vilant 25 mcg inhalat.powder (Trelegy Ellipta) paroxetine HCl 40 mg tablet (Paxil) 40 mg PO HS 08/13/23 09/11/23 History rosuvastatin 10 mg tablet 10 mg PO HS 08/13/23 09/11/23 History spironolactone 50 mg tablet 50 mg PO DAILY 08/13/23 09/11/23 History polyethylene glycol 3350 17 17 g PO DAILY 08/14/23 09/11/23 History gram/dose oral powder New Prescriptions to Start Prescriptions: Allergies Allergy/AdvReac Type Severity Reaction Status Date / Time cephalexin Allergy Verified 09/10/23 13:23 Penicillins Allergy Verified 09/10/23 13:23 Discharge Plan Disposition Patient Disposition: er Intermediate Care Fac Condition: Fair Discharge Order Discharge Orders: Discharge Order (Routine); Ordered 09/12/23 Ordered By: Lamin Hemphill Follow up Plan Follow up with: Isha Paredes MD [Physician] - 10/11/23 1:45 pm Prescriptions/Medication Reconciliation: Continued bumetanide 2 mg tablet 2 mg PO BID Qty: 60 3RF ergocalciferol (vitamin D2) 1,250 mcg (50,000 unit) capsule 1,250 mcg PO DIRECTED Patient Comments: TAKE 1 CAPSULE BY MOUTH EVERY TWO WEEKS (TWICE A MONTH) Rx Instructions: EVERY OTHER WEEK albuterol sulfate 90 mcg/actuation HFA aerosol inhaler 2 puff INHALATION Q4HP PRN (Reason: Shortness Of Breath Or Wheezing) multivitamin Tablet 1 tab PO DAILY omeprazole 40 mg Capsule,Delayed Release(Dr/Ec) 40 mg PO HS icosapent ethyl [Vascepa] 1 gram Capsule 1 g PO BID docusate sodium 100 mg Tablet 100 mg PO BID ferrous sulfate 324 mg (65 mg iron) Tablet,Delayed Release (Dr/Ec) 324 mg PO DAILY Eliquis 5 mg Tablet 5 mg PO BID nitroglycerin 0.4 mg Tablet, Sublingual 0.4 mg SUBLINGUAL Q5MINP PRN (Reason: Chest Pain) Rx Instructions: do not exceed 3 doses per episode insulin lispro 100 unit/mL Insulin Pen 0 sliding scale dose SQ ACHS Rx Instructions: 101-150 3 UNITS 151-200 4 UNITS 201-250 6 UNITS 251-300 9 UNITS 301-350 12 UNITS 351-400 15 UNITS albuterol sulfate 2.5 mg /3 mL (0.083 %) Solution For Nebulization 2.5 mg inhalation Q4HP PRN (Reason: shortness of air or wheezing) acetaminophen 500 mg Tablet 500 mg PO AC buspirone 10 mg tablet 10 mg PO TID paroxetine HCl [Paxil] 40 mg Tablet 40 mg PO HS spironolactone 50 mg tablet 50 mg PO DAILY rosuvastatin 10 mg tablet 10 mg PO HS Trelegy Ellipta 100-62.5-25 mcg blister with device 1 inh INHALATION DAILY polyethylene glycol 3350 17 gram/dose powder 17 g PO DAILY clopidogrel 75 mg Tablet 75 mg PO DAILY miconazole nitrate 2 % Cream 1 applic TOPICAL BID clobetasol 0.05 % Shampoo 1 applic TOPICAL HS levothyroxine 50 mcg Tablet 50 mcg PO DAILYDM ondansetron 4 mg Tablet,Disintegrating 4 mg PO Q6HP PRN (Reason: Nausea And Vomiting) insulin glargine [Lantus Solostar U-100 Insulin] 100 unit/mL (3 mL) Insulin Pen 14 unit SQ HS Jardiance 10 mg tablet 10 mg PO DAILY Held cetirizine 10 mg tablet 10 mg PO DAILY Hold Instructions: Hold until evaluated by her managing physician at [facility] gabapentin 300 mg Capsule 300 mg PO BID Hold Instructions: Hold until evaluated by her managing physician at [facility] hydrocodone-acetaminophen 5-325 mg tablet 1 tab PO Q12HP PRN (Reason: Moderate Pain (Scale Score 5-6)) Hold Instructions: Hold until evaluated by her managing physician at [facility] Problem Reconciliation Problems Reviewed?: Yes Patient Discharge Instructions ACTIVITY: Continue current activity DIET: continue same diet Patient Instructions: DI for Encephalopathy, DI for Respiratory Failure Print Language: Lao Providers Primary Care Provider: Provider,Referral Admit Provider: Lamin Hemphill Attending Provider: Lamin Hemphill
--- NOTE | 2023-09-12 09:41 | P.CONS_ITS ---
History of Present Illness History of present illness: Mr. Sena is a 72-year-old male history of COPD chronic hypercarbic respiratory failure multiple recent hospital admission recently discharged from the hospital less than 7 days ago while her noninvasive ventilator therapy was changed from CPAP to BiPAP at hospital worsening respiratory distress was admitted for management of acute on chronic hypercarbic respiratory failure. ABG at a prior to her hospital admission showed chronic hypercarbic respiratory failure and BiPAP settings were changed. Patient denies any new respiratory complaints. Admits to not using her NIV therapy in the recent days. [facility] Disclaimer: The information contained in this section may have been updated after the patient was seen, as this information can be updated by other users. Medical History Chronic respiratory failure with hypoxia and hypercapnia Lung nodule Rotator cuff arthropathy of right shoulder Acute anterior epistaxis Chronic hypoxemic respiratory failure Nodule of left lung Heart attack Encounter for screening for malignant neoplasm of lung COPD mixed type History of smoking 30 or more pack years Dyspnea Bilateral hearing loss due to cerumen impaction Encounter for removal of nasal packing CAD in sun'aq artery Cardiomyopathy Non-STEMI (non-ST elevated myocardial infarction) Right ventricular dilation Coronary artery disease HFrEF (heart failure with reduced ejection fraction) Pneumonia Diabetes mellitus, type 2 Iron deficiency anemia Pulmonary hypertension Osteoporosis Major depressive disorder Heart failure Depression Lymphedema Insomnia Class 2 obesity due to excess calories with body mass index (BMI) of 39.0 to 39.9 in adult Fibromyalgia Congestive heart failure Atrial fibrillation Anxiety HTN (hypertension) HLD (hyperlipidemia) COPD (chronic obstructive pulmonary disease) BMI 30.0-30.9,adult Osteoarthritis Callus of foot Paresthesia of both lower extremities Onychodystrophy Onychomycosis Diabetic foot Surgical History History of coronary artery stent placement History of bladder surgery H/O: hysterectomy H/O hernia repair Family History Other Diabetes Hyperlipidemia Hypertension No significant family history Social History Smoking Status: Unknown if ever smoked alcohol intake: never substance use type: denies use current occupational status: retired and disabled Travel in the last 8 weeks: None housing: penitentiary lives independently: No penitentiary: Yes caffeine: Yes Review of Systems Constitutional Constitutional: Reports anorexia, Reports body ache(s) and Reports fatigue Eyes Eyes: Denies eye discharge, Denies dry eyes, Denies irritation and Denies itchy eyes ENT Ears, Nose, Mouth, and Throat: Denies epistaxis, Denies facial pain, Denies lip swelling and Denies throat swelling *Cardiovascular Cardiovascular: Reports dyspnea, Reports dyspnea on exertion and Reports slow heart rate *Respiratory Respiratory: Denies change in phlegm color, Reports chest congestion, Reports cough, Reports dyspnea, Reports dyspnea on exertion, Denies excessive phlegm production, Denies hemoptysis, Denies pain on inspiration, Denies pain with cough and Denies wheezing *Gastrointestinal Gastrointestinal: Denies abdominal pain, Denies belching and Denies cramping *Musculoskeletal Musculoskeletal: Reports back pain, Reports myalgias and Reports other (No small joint swelling or Pain) Psychiatric Psychiatric: Denies homicidal ideation and Denies suicidal ideation Endocrine Endocrine: Reports fatigue and Denies heat intolerance Hematologic/Lymphatic Hematologic/Lymphatic: Denies easy bleeding and Denies lymphadenopathy Allergic/Immunologic Allergic/Immunologic: Denies itchy eyes, Denies lip swelling, Denies throat swelling and Denies wheezing Pulmonology Exam Inpatient Vital signs and Labs for Last 24 Hours: Temp Pulse Resp BP Pulse Ox O2 Del Method O2 Flow Rate 98.6 F 56 L 20 132/56 L 90 L Nasal Cannula 3 09/12/23 08:00 09/12/23 08:00 09/12/23 08:00 09/12/23 08:00 09/12/23 08:00 09/12/23 08:00 09/12/23 08:00 FiO2 35 09/12/23 02:01 Laboratory Results - last 24 hr 09/11/23 10:04: Urine Color Yellow, Urine Appearance Clear, Urine pH 6.5, Ur Specific [place] <= 1.005, Urine Protein Negative, Urine Glucose (UA) 2+, Urine Ketones Negative, Urine Blood Negative, Urine Nitrate Negative, Urine Bilirubin Negative, Urine Urobilinogen 1.0, Ur Leukocyte Esterase Negative, Urine RBC Occasional, Urine WBC Occasional, Ur Squamous Epith Cells Occasional, Urine Bacteria Trace 09/11/23 10:17: Troponin I 0.02 09/11/23 10:22: VBG pH 7.37, VBG pCO2 69.8 H, VBG pO2 45.9 H, VBG HCO3 39.1 H, V BG Total CO2 41.2 H, VBG O2 Saturation 79.3 H, VBG Base Excess 13.7 H, VBG Lactic Acid 2.0 09/11/23 15:49: POC Glucose 141 H 09/12/23 05:21: WBC 7.6, RBC 5.21, Hct 42.9, MCV 82.5, MCH 24.7 L, MCHC 30.0 L, RDW 21.9 H, Plt Count 282, MPV 8.8, Neut % (Auto) 82.5 H, Lymph % (Auto) 11.3, [place] % (Auto) 4.5, Eos % (Auto) 1.1, Baso % (Auto) 0.6, Neut # (Auto) 6.3, Lymph # (Auto) 0.9, [place] # (Auto) 0.3, Eos # (Auto) 0.1, Baso # (Auto) 0.0, Sodium 133 L, Potassium 3.7, Chloride 91 L, Carbon Dioxide 38 H, Anion Gap 7.7, BUN 14, Creatinine 0.90, Estimated Creat Clear 78, Estimated GFR 61, Est GFR ( Amer) 74, Glucose 98, Calcium 8.6, Magnesium 1.8, Total Bilirubin 0.6, AST 24, A LT 15 D, Alkaline Phosphatase 71, Total Protein 6.0 L, Albumin 3.3 L D, Globulin 2.7, Albumin/Globulin Ratio 1.2 09/12/23 06:06: POC Glucose 114 H 09/12/23 08:00: VBG pH 7.38, VBG pCO2 56.5 H, VBG pO2 76.5 H, VBG HCO3 32.8 H, V BG Total CO2 34.6 H, VBG O2 Saturation 94.6 H, VBG Base Excess 7.7 H, VBG Lactic Acid 1.0 I & O for Labs for Last 24 Hours: Intake & Output 09/09/23 09/10/23 09/11/23 09/12/23 23:59 23:59 23:59 23:59 Intake Total 0 / 0 Output Total 0 / 1850 Balance -1850 / -1850 Weight 250 lb 218 lb 11.2 oz Microbiology Reports for the Last 24 Hours: Microbiology 09/01/23 12:42 Blood Blood Culture - Preliminary NO GROWTH AFTER 24 HOURS 09/01/23 12:42 Blood Blood Culture - Preliminary NO GROWTH AFTER 24 HOURS Constitutional: Present moderate distress Head: Present normocephalic and atraumatic ENT: Present normal exam, normal oropharynx and mucous membranes moist Neck: Present normal inspection and full ROM Respiratory: Present rhonchi and able to speak in complete sentences; Absent respiratory distress, wheezes or diminished air movement Cardiac: Present S1/S2, Tachycardia and radial pulses present GI: Present soft and distention; Absent tenderness or guarding Rectal (female): Present deferred (female): Present deferred Skin: Present intact; Absent cyanosis or jaundice Neuro: Present alert, awake and oriented x 3 Extremities: Present normal inspection; Absent clubbing or cyanosis Psychiatric: Present normal affect and cooperative Meds Home Medications and Allergies Home Medications ?Medication ?Instructions ?Recorded ?Confirmed ?Type ergocalciferol (vitamin D2) 1,250 1,250 mcg PO DIRECTED 08/12/20 09/11/23 History mcg (50,000 unit) capsule albuterol sulfate 90 mcg/actuation 2 puff inhalation Q4HP PRN 12/18/22 09/11/23 History aerosol inhaler Shortness Of Breath Or Wheezing apixaban 5 mg tablet (Eliquis) 5 mg PO BID 12/18/22 09/11/23 History docusate sodium 100 mg tablet 100 mg PO BID 12/18/22 09/11/23 History ferrous sulfate 324 mg (65 mg 324 mg PO DAILY 12/18/22 09/11/23 History iron) tablet,delayed release icosapent ethyl 1 gram capsule 1 g PO BID 12/18/22 09/11/23 History (Vascepa) insulin lispro 100 unit/mL 0 sliding scale dose SQ ACHS 12/18/22 09/11/23 History subcutaneous pen Diabetes multivitamin 1 tab PO DAILY 12/18/22 09/11/23 History nitroglycerin 0.4 mg sublingual 0.4 mg sublingual Q5MINP PRN Chest 12/18/22 09/11/23 History tablet Pain omeprazole 40 mg capsule,delayed 40 mg PO HS 12/18/22 09/11/23 History release acetaminophen 500 mg tablet 500 mg PO AC 12/19/22 09/11/23 History albuterol sulfate 2.5 mg/3 mL 2.5 mg inhalation Q4HP PRN 12/19/22 09/11/23 History (0.083 %) solution for nebulization shortness of air or wheezing gabapentin 300 mg capsule 300 mg PO BID 12/19/22 09/11/23 History hydrocodone 5 mg-acetaminophen 325 1 tab PO Q12HP PRN Moderate Pain 01/12/23 09/11/23 History mg tablet (Scale Score 5-6) clopidogrel 75 mg tablet 75 mg PO DAILY 03/18/23 09/11/23 History clobetasol 0.05 % shampoo 1 applic topical HS 04/19/23 09/11/23 History empagliflozin 10 mg tablet 10 mg PO DAILY 04/19/23 09/11/23 History (Jardiance) insulin glargine 100 unit/mL (3 14 unit SQ HS Diabetes 04/19/23 09/11/23 History mL) subcutaneous pen (Lantus Solostar U-100 Insulin) levothyroxine 50 mcg tablet 50 mcg PO DAILYDM 04/19/23 09/11/23 History miconazole nitrate 2 % topical 1 applic topical BID 04/19/23 09/11/23 History cream ondansetron 4 mg disintegrating 4 mg PO Q6HP PRN Nausea And 04/19/23 09/11/23 History tablet Vomiting bumetanide 2 mg tablet 2 mg PO BID #60 tabs 04/30/23 09/11/23 Rx buspirone 10 mg tablet 10 mg PO TID 07/04/23 09/11/23 History cetirizine 10 mg tablet 10 mg PO DAILY 08/07/23 09/11/23 History fluticasone fur. 100 mcg-umeclid 1 inh inhalation DAILY 08/13/23 09/11/23 History 62.5 mcg-vilant 25 mcg inhalat.powder (Trelegy Ellipta) paroxetine HCl 40 mg tablet (Paxil) 40 mg PO HS 08/13/23 09/11/23 History rosuvastatin 10 mg tablet 10 mg PO HS 08/13/23 09/11/23 History spironolactone 50 mg tablet 50 mg PO DAILY 08/13/23 09/11/23 History polyethylene glycol 3350 17 17 g PO DAILY 08/14/23 09/11/23 History gram/dose oral powder New Prescriptions to Start Prescriptions: Allergies Allergy/AdvReac Type Severity Reaction Status Date / Time cephalexin Allergy Verified 09/10/23 13:23 Penicillins Allergy Verified 09/10/23 13:23 Results Laboratory Findings 09/12/23 05:21 09/12/23 05:21 Abnormal lab findings: Abnormal Labs 09/11/23 09/11/23 09/11/23 07:04 07:19 10:22 RBC 5.84 H Hct 48.3 H MCH 24.8 L MCHC 30.0 L RDW 22.0 H Neut % (Auto) VBG pCO2 77.4 H 69.8 H VBG pO2 45.0 H 45.9 H VBG HCO3 40.0 H 39.1 H VBG Total CO2 42.4 H 41.2 H VBG O2 Saturation 76.0 H 79.3 H VBG Base Excess 14.1 H 13.7 H Sodium Chloride 89 L Carbon Dioxide 44 H* Estimated GFR 54 L Glucose 121 H POC Glucose Total Protein Albumin 09/11/23 09/12/23 09/12/23 15:49 05:21 06:06 RBC Hct MCH 24.7 L MCHC 30.0 L RDW 21.9 H Neut % (Auto) 82.5 H VBG pCO2 VBG pO2 VBG HCO3 VBG Total CO2 VBG O2 Saturation VBG Base Excess Sodium 133 L Chloride 91 L Carbon Dioxide 38 H Estimated GFR Glucose POC Glucose 141 H 114 H Total Protein 6.0 L Albumin 3.3 L D 09/12/23 08:00 RBC Hct MCH MCHC RDW Neut % (Auto) VBG pCO2 56.5 H VBG pO2 76.5 H VBG HCO3 32.8 H VBG Total CO2 34.6 H VBG O2 Saturation 94.6 H VBG Base Excess 7.7 H Sodium Chloride Carbon Dioxide Estimated GFR Glucose POC Glucose Total Protein Albumin Assessment and Plan *Assessment and plan (1) Acute and chronic respiratory failure with hypercapnia: Status: Inactive Category: Medical Code(s): J96.22 - Acute and chronic respiratory failure with hypercapnia Plan Mr. Sena is a 72-year-old female history of COPD ,chronic hypercarbic respiratory failure multiple recent hospital admission recently discharged from the hospital less than 7 days ago durig which her noninvasive ventilator therapy was changed from CPAP to BiPAP presented to the hospital worsening respiratory distress was admitted for management of acute on chronic hypercarbic respiratory failure. ABG at a prior to her hospital admission showed chronic hypercarbic respiratory failure and BiPAP settings were changed. Compliance report reviewed, patient has only used BiPAP 3 out of 7 days from 09/03 to 09/09/2024 but have not used her BiPAP since September 06, 2023. CTA on admission no acute airspace disease. No pulmonary embolism. No other acute pulmonary parenchymal findings. AHI while using BiPAP still not optimal ranging from 8-10. Venous blood gas this morning after using BiPAP at 22/10 with RR - 16 and FiO2 of 35% relatively within normal limits and a pH of 7.38 and pCO2 56.5. Etiology of her current hypercarbic respiratory failure is likely from noncompliance. Plan: -Initiate incentive spirometry and flutter valve. -Continue BiPAP therapy at PEEP of 10 PS of 10 and a maximum pressure of 22. Patient strongly advised to be more compliant. Will follow in the clinic as previously scheduled in 4 weeks with repeat ABG, before deciding the need for escalation to BiPAP ST/Trilogy. -Continue Trelegy 100 inhaler -DuoNebs every 6 hours on as-needed basis # The previously concerning left lower lobe nodular opacity appears more like scarring and atelectasis at this point of time than the concerning nodule. Will hold off on previously scheduled outpatient CT chest at this point of time. Thank you for involving pulmonary in this patient care. Will follow the patient in pulmonary clinic as previously scheduled
[2023-09-12 11:17] LABS: Hemoglobin 12.4 g/dL (12.2-16.2)
[2023-09-13 17:09] LABS: POC Glucose,Bedside 150 (70-110)
== END 2023-09-12 13:16 ==
LOC: ER 06:09 → 2ND 12:18
PROVIDERS: Emergency Medicine; Internal Medicine Pulmonary Disease; Admitting Provider Internal Medicine Adolescent Medicine; Emergency Provider Emergency Medicine; Visit Provider Internal Medicine Adolescent Medicine
DX: J96.22 Acute and chronic respiratory failure with hypercapnia (principal); R00.1 Bradycardia, unspecified; J96.21 Acute and chronic respiratory failure with hypoxia; G47.33 Obstructive sleep apnea (adult) (pediatric); I48.20 Chronic atrial fibrillation, unspecified; I50.9 Heart failure, unspecified; I11.0 Hypertensive heart disease with heart failure; E78.2 Mixed hyperlipidemia; E11.9 Type 2 diabetes mellitus without complications; I27.20 Pulmonary hypertension, unspecified; I25.118 Atherosclerotic heart disease of native coronary artery with other forms of angina pectoris; R11.2 Nausea with vomiting, unspecified; L29.9 Pruritus, unspecified; R41.82 Altered mental status, unspecified; E66.01 Morbid (severe) obesity due to excess calories; Z68.36 Body mass index [BMI] 36.0-36.9, adult; Z79.4 Long term (current) use of insulin; Z99.89 Dependence on other enabling machines and devices; Z79.899 Other long term (current) drug therapy; Z79.01 Long term (current) use of anticoagulants
CPT/HCPCS: 36415; 70496; 70498; 71045; 71275; 74177; 80053; 81001; 82803; 82962; 83735; 84484; 85025; 93005; 94640; 94761; 99291; G0378; J2405; J2550; J7120; J7620; Q9967

== ENCOUNTER 2023-10-11 12:38 | Outpatient (CLI) | payer MEDICARE, MEDICAID, SELFPAY ==
[2023-10-11 12:54] LABS: ABG HCO3 31.2 mmhg (22.0-26.0); ABG Oxygen Saturation 90 % (90-100); ABG PH 7.38 mmol/L (7.35-7.45); ABG PO2 62.4 mmhg (80-100); ABG TCO2 32.9 mmhg (23-27)
[2023-10-11 12:56] LABS: ABG PCO2 54.5 mmhg (35.0-45.0); Oxygen 2LPM %; Source R BRACHIAL
== END 2023-10-11 23:59 | disposition home or self-care (01) ==
LOC: RT 12:39
PROVIDERS: PCP Internal Medicine Adolescent Medicine; Visit Provider Internal Medicine Pulmonary Disease
DX: J96.21 Acute and chronic respiratory failure with hypoxia (principal); J96.22 Acute and chronic respiratory failure with hypercapnia
CPT/HCPCS: 82803

== ENCOUNTER 2023-11-13 15:58 | Outpatient (CLI) | payer MEDICARE, MEDICAID, SELFPAY ==
[2023-11-13 16:29] LABS: ABG Base Excess 9.6 mmol/L (-2.4-2.3); ABG HCO3 34.6 mmhg (22.0-26.0); ABG Oxygen Saturation 92 % (90-100); ABG PH 7.39 mmol/L (7.35-7.45); ABG PO2 66.1 mmhg (80-100); ABG TCO2 36.4 mmhg (23-27)
[2023-11-13 16:31] LABS: Oxygen 32% nasal cannula %
[2023-11-13 16:32] LABS: ABG PCO2 58.9 mmhg (35.0-45.0)
== END 2023-11-13 23:59 | disposition home or self-care (01) ==
LOC: RT 16:01
PROVIDERS: PCP Internal Medicine Adolescent Medicine; Visit Provider Internal Medicine Pulmonary Disease
DX: J96.11 Chronic respiratory failure with hypoxia (principal); J96.12 Chronic respiratory failure with hypercapnia
CPT/HCPCS: 82803

== ENCOUNTER 2023-12-03 08:38 | Emergency (ER) | payer MEDICARE, MEDICAID, SELFPAY ==
[2023-12-03] VITALS (13 sets, daily range): BP systolic 118–148; BP diastolic 52–75; PULSE 74–83; RESP 18; TEMP 36.6–36.7; O2SAT 68–96; BMI 36.4
--- NOTE | 2023-12-03 08:37 | ECG_ITS ---
APPROVED REPORT Exam: Resting ECG HR:87 bpm ECG Measurements Heart Rate 87 AXES MA 210 P 89 QRSd 99 QRS 152 QT 380 T 86 QTc 424 Conclusion SINUS RHYTHM WITH FIRST DEGREE AV BLOCK POSSIBLE RIGHT VENTRICULAR HYPERTROPHY [SOME/ALL OF: PROMINENT R IN V1, LATE TRANSITION, RAD, MANAS, SSS] MODERATE ST DEPRESSION [0.05+ mV ST DEPRESSION] ABNORMAL ECG UNCONFIRMED REPORT Electronically signed by : NEERAJ JIMÉNEZ, 12/04/2023 05:28:31
--- NOTE | 2023-12-03 08:38 | PC.NURSE ---
PT 68% ON ROOM AIR, PT PLACED ON BASELINE O2 AT 6L/NC.
--- NOTE | 2023-12-03 08:40 | PC.NURSE ---
DR ESCOBAR AT BEDSIDE
--- NOTE | 2023-12-03 08:43 | XR_ITS ---
PROCEDURE INFORMATION: Exam: XR Left Hip Exam date and time: 12/03/2023 9:04 AM Age: 73 years old Clinical indication: Hip pain; Left hip; Additional info: Left hip pain TECHNIQUE: Imaging protocol: Radiologic exam of the left hip. Views: 2 or 3 views hip with pelvis when performed. COMPARISON: No relevant prior studies available. FINDINGS: Bones/joints: No acute fracture or malalignment. Moderate degenerative changes of the bilateral hips. Osteopenia. Soft tissues: Unremarkable. Vasculature: Vascular calcification IMPRESSION: No acute fracture or malalignment.
--- NOTE | 2023-12-03 08:43 | XR_ITS ---
PROCEDURE INFORMATION: Exam: XR Left Femur Exam date and time: 12/03/2023 9:05 AM Age: 73 years old Clinical indication: Pain; Hip; Left; Additional info: Left hip pain TECHNIQUE: Imaging protocol: Radiologic exam of the left femur. Views: 2 views. COMPARISON: CR XR HIP LT 2-3V W/PELVIS 12/03/2023 9:04 AM FINDINGS: Bones/joints: No acute fracture or malalignment. Osteopenia. Soft tissues: Unremarkable. Vasculature: Vascular calcifications. IMPRESSION: No acute fracture or malalignment.
--- NOTE | 2023-12-03 08:44 | XR_ITS ---
PROCEDURE INFORMATION: Exam: XR Chest Exam date and time: 12/03/2023 8:59 AM Age: 73 years old Clinical indication: Shortness of breath; Additional info: SOB / cp TECHNIQUE: Imaging protocol: Radiologic exam of the chest. Views: 2 views. COMPARISON: CR XR CHEST PORTABLE 09/01/2023 12:22 PM FINDINGS: Lungs: Mild interstitial pulmonary edema. Pleural spaces: Trace bilateral pleural effusions. No pneumothorax. Heart/Mediastinum: Unremarkable. No cardiomegaly. Bones/joints: Unremarkable. IMPRESSION: Mild interstitial pulmonary edema with trace bilateral pleural effusions.
--- NOTE | 2023-12-03 08:56 | ED_ITS ---
Discharge Plan Disposition Patient Disposition: Home, Self-Care Condition: Good Chief Complaint: Shortness of Breath/Dyspnea Prescriptions Prescriptions: No Action bumetanide 2 mg tablet 2 mg PO BID Qty: 60 3RF ammonium lactate 12 % lotion topical doxycycline hyclate 100 mg tablet 100 mg PO BID pregabalin 75 mg capsule 75 mg PO (DME) BD AutoShield Duo Pen Needle 30 gauge x 3/16 needle See Rx Instructions .ROUTE .MEDSUPPLY Qty: 100 Rx Instructions: As directed insulin glargine-yfgn 100 unit/mL (3 mL) insulin pen SQ ergocalciferol (vitamin D2) 1,250 mcg (50,000 unit) capsule 1,250 mcg PO DIRECTED Patient Comments: TAKE 1 CAPSULE BY MOUTH EVERY TWO WEEKS (TWICE A MONTH) Rx Instructions: EVERY OTHER WEEK cetirizine 10 mg tablet 10 mg PO DAILY doxycycline hyclate 100 mg capsule 100 mg PO BID 5 Days Qty: 10 0RF prednisone 20 mg tablet 40 mg PO DAILY 5 Days Qty: 10 0RF Rx Instructions: Take 40mg daily for 5 days albuterol sulfate 90 mcg/actuation HFA aerosol inhaler 2 puff INHALATION Q4HP PRN (Reason: Shortness Of Breath Or Wheezing) multivitamin Tablet 1 tab PO DAILY omeprazole 40 mg Capsule,Delayed Release(Dr/Ec) 40 mg PO HS icosapent ethyl [Vascepa] 1 gram Capsule 1 g PO BID docusate sodium 100 mg Tablet 100 mg PO BID ferrous sulfate 324 mg (65 mg iron) Tablet,Delayed Release (Dr/Ec) 324 mg PO DAILY Eliquis 5 mg Tablet 5 mg PO BID nitroglycerin 0.4 mg Tablet, Sublingual 0.4 mg SUBLINGUAL Q5MINP PRN (Reason: Chest Pain) Rx Instructions: do not exceed 3 doses per episode insulin lispro 100 unit/mL Insulin Pen 0 sliding scale dose SQ ACHS Rx Instructions: 101-150 3 UNITS 151-200 4 UNITS 201-250 6 UNITS 251-300 9 UNITS 301-350 12 UNITS 351-400 15 UNITS albuterol sulfate 2.5 mg /3 mL (0.083 %) Solution For Nebulization 2.5 mg inhalation Q4HP PRN (Reason: shortness of air or wheezing) acetaminophen 500 mg Tablet 500 mg PO AC gabapentin 300 mg Capsule 300 mg PO BID buspirone 10 mg tablet 10 mg PO TID hydrocodone-acetaminophen 5-325 mg tablet 1 tab PO Q12HP PRN (Reason: Moderate Pain (Scale Score 5-6)) paroxetine HCl [Paxil] 40 mg Tablet 40 mg PO HS spironolactone 50 mg tablet 50 mg PO DAILY rosuvastatin 10 mg tablet 10 mg PO HS Trelegy Ellipta 100-62.5-25 mcg blister with device 1 inh INHALATION DAILY polyethylene glycol 3350 17 gram/dose powder 17 g PO DAILY clopidogrel 75 mg Tablet 75 mg PO DAILY miconazole nitrate 2 % Cream 1 applic TOPICAL BID clobetasol 0.05 % Shampoo 1 applic TOPICAL HS levothyroxine 50 mcg Tablet 50 mcg PO DAILYDM ondansetron 4 mg Tablet,Disintegrating 4 mg PO Q6HP PRN (Reason: Nausea And Vomiting) insulin glargine [Lantus Solostar U-100 Insulin] 100 unit/mL (3 mL) Insulin Pen 14 unit SQ HS Jardiance 10 mg tablet 10 mg PO DAILY Referrals Follow up/Referrals: Provider,Referral, MD [Primary Care Provider] - See instructions Activity Restrictions/Add. Instructions Additional Instructions/Restrictions: As discussed please follow-up with your primary care provider. Should your symptoms worsen please return to ED Clinical Impressions Clinical Impression: Shortness of breath Print Language Print Language: Ghanaian Discharge ED Provider: Prince Pizano HPI General Chief Complaint: Shortness of Breath/Dyspnea Stated Complaint: cp with breathing Time Seen by Provider: 12/03/23 08:43 History of Present Illness HPI narrative: 73yoF patient presents with chief complaints of shortness of breath, pain with breathing, and chest pain. She has a history of COPD and is on BiPAP at night and during daytime naps. When not sleeping, she uses a nasal cannula with an oxygen flow rate of 5 L/min - currently at baseline. The patient reports that her symptoms have worsened since receiving two shots last week, which she believes were for COVID and flu or pneumonia vaccinations. She is unsure of the exact vaccinations she received. The patient describes her chest pain as constant and exacerbated when taking a breath. She also reports pain in her left hip, although she is uncertain of the cause or when it began. The patient denies any recent falls or injuries to her hip. She denies experiencing any abdominal pain or nausea. The patient states that she couldn't catch her breath and that her breathing problems have worsened. She describes her chest pain as hurting so bad and reports that it has been ongoing for some time. Associated symptoms include worsening shortness of breath and chest pain. The patient denies abdominal pain, nausea, or recent hip injuries. The patient's medical history is significant for COPD. Please note that above description of symptoms, in this electronic medical record under categorization of recalled from ER triage doctor by RN are reflective of an initial nursing assessment, however, is not reflective of my full history and physical exam that was personally taken and clarified. Consequentially, this preceding description of symptoms, which may include the patient's categorized chief complaint in the EMR, do not reflect my personal clinical impression, and the ultimate description of history of present illness and patient stated complaints should be deferred to this section of the note. Unless stated otherwise or congruent with this section of the note, additional signs, symptoms, or incongruence should be interpreted as inaccurate with my clinical impression. Related Data Home Medications ?Medication ?Instructions ?Recorded ?Confirmed ergocalciferol (vitamin D2) 1,250 1,250 mcg PO DIRECTED 08/12/20 11/13/23 mcg (50,000 unit) capsule albuterol sulfate 90 mcg/actuation 2 puff inhalation Q4HP PRN 12/18/22 11/13/23 aerosol inhaler Shortness Of Breath Or Wheezing apixaban 5 mg tablet (Eliquis) 5 mg PO BID 12/18/22 11/13/23 docusate sodium 100 mg tablet 100 mg PO BID 12/18/22 11/13/23 ferrous sulfate 324 mg (65 mg 324 mg PO DAILY 12/18/22 11/13/23 iron) tablet,delayed release icosapent ethyl 1 gram capsule 1 g PO BID 12/18/22 11/13/23 (Vascepa) insulin lispro 100 unit/mL 0 sliding scale dose SQ ACHS 12/18/22 11/13/23 subcutaneous pen Diabetes multivitamin 1 tab PO DAILY 12/18/22 11/13/23 nitroglycerin 0.4 mg sublingual 0.4 mg sublingual Q5MINP PRN Chest 12/18/22 11/13/23 tablet Pain omeprazole 40 mg capsule,delayed 40 mg PO HS 12/18/22 11/13/23 release acetaminophen 500 mg tablet 500 mg PO AC 12/19/22 11/13/23 albuterol sulfate 2.5 mg/3 mL 2.5 mg inhalation Q4HP PRN 12/19/22 11/13/23 (0.083 %) solution for nebulization shortness of air or wheezing gabapentin 300 mg capsule 300 mg PO BID 12/19/22 11/13/23 hydrocodone 5 mg-acetaminophen 325 1 tab PO Q12HP PRN Moderate Pain 01/12/23 11/13/23 mg tablet (Scale Score 5-6) clopidogrel 75 mg tablet 75 mg PO DAILY 03/18/23 11/13/23 clobetasol 0.05 % shampoo 1 applic topical HS 04/19/23 11/13/23 empagliflozin 10 mg tablet 10 mg PO DAILY 04/19/23 11/13/23 (Jardiance) insulin glargine 100 unit/mL (3 14 unit SQ HS Diabetes 04/19/23 11/13/23 mL) subcutaneous pen (Lantus Solostar U-100 Insulin) levothyroxine 50 mcg tablet 50 mcg PO DAILYDM 04/19/23 11/13/23 miconazole nitrate 2 % topical 1 applic topical BID 04/19/23 11/13/23 cream ondansetron 4 mg disintegrating 4 mg PO Q6HP PRN Nausea And 04/19/23 11/13/23 tablet Vomiting buspirone 10 mg tablet 10 mg PO TID 07/04/23 11/13/23 cetirizine 10 mg tablet 10 mg PO DAILY 08/07/23 11/13/23 fluticasone fur. 100 mcg-umeclid 1 inh inhalation DAILY 08/13/23 11/13/23 62.5 mcg-vilant 25 mcg inhalat.powder (Trelegy Ellipta) paroxetine HCl 40 mg tablet (Paxil) 40 mg PO HS 08/13/23 11/13/23 rosuvastatin 10 mg tablet 10 mg PO HS 08/13/23 11/13/23 spironolactone 50 mg tablet 50 mg PO DAILY 08/13/23 11/13/23 polyethylene glycol 3350 17 17 g PO DAILY 08/14/23 11/13/23 gram/dose oral powder insulin glargine-yfgn 100 unit/mL unit SQ 09/17/23 11/13/23 (3 mL) subcutaneous pen pen needle,diabetic dual safty 30 #100 ea 09/17/23 11/13/23 gauge x 3/16 (BD AutoShield Duo Pen Needle) pregabalin 75 mg capsule 75 mg PO 09/17/23 11/13/23 ammonium lactate 12 % lotion topical 09/26/23 11/13/23 doxycycline hyclate 100 mg tablet 100 mg PO BID 09/26/23 11/13/23 Previous Rx's ?Medication ?Instructions ?Recorded bumetanide 2 mg tablet 2 mg PO BID #60 tabs 04/30/23 doxycycline hyclate 100 mg capsule 100 mg PO BID 5 days #10 caps 11/13/23 prednisone 20 mg tablet 40 mg (2 x 20 mg) PO DAILY 5 days 11/13/23 #10 tabs Allergies Allergy/AdvReac Type Severity Reaction Status Date / Time cephalexin Allergy Verified 11/13/23 15:16 Penicillins Allergy Verified 11/13/23 15:16 [facility] Disclaimer: The information contained in this section may have been updated after the patient was seen, as this information can be updated by other users. Medical History Accidental overdose Chronic respiratory failure with hypoxia and hypercapnia Lung nodule Rotator cuff arthropathy of right shoulder Acute anterior epistaxis Chronic hypoxemic respiratory failure O2 dependent Nodule of left lung Heart attack Encounter for screening for malignant neoplasm of lung COPD mixed type History of smoking 30 or more pack years Dyspnea Bilateral hearing loss due to cerumen impaction Encounter for removal of nasal packing CAD in [place] artery Cardiomyopathy Non-STEMI (non-ST elevated myocardial infarction) Right ventricular dilation Coronary artery disease HFrEF (heart failure with reduced ejection fraction) Pneumonia Diabetes mellitus, type 2 Iron deficiency anemia Pulmonary hypertension Osteoporosis Major depressive disorder Heart failure Depression Lymphedema Insomnia Class 2 obesity due to excess calories with body mass index (BMI) of 39.0 to 39.9 in adult Fibromyalgia Congestive heart failure Atrial fibrillation Anxiety HTN (hypertension) HLD (hyperlipidemia) COPD (chronic obstructive pulmonary disease) BMI 30.0-30.9,adult Osteoarthritis Callus of foot Paresthesia of both lower extremities Onychodystrophy Onychomycosis Diabetic foot Surgical History History of coronary artery stent placement History of bladder surgery H/O: hysterectomy H/O hernia repair Family History Other Diabetes Hyperlipidemia Hypertension No significant family history Social History Smoking Status: Smoker, status unknown tobacco type: cigarettes packs per day: 2 alcohol intake: never substance use type: denies use current occupational status: retired and disabled Travel in the last 8 weeks: None housing: intermediate lives independently: No intermediate: Yes caffeine: Yes Other Medical History Have you received the Flu Vaccine for this season: No Have you received the Pneumonia Vaccine: Yes ROS Obtained: Yes Systems reviewed as appropriate & no additional complaints except as documented Physical Exam General General appearance: alert and in no apparent distress Head Head exam: atraumatic and normocephalic Eye Eye exam: Present normal appearance and EOMI ENT ENT exam: Present normal exam Neck Neck exam: Present normal inspection Chest Chest inspection: Present normal inspection and symmetric chest wall rise; Absent tenderness Respiratory Respiratory exam: Present wheezes (Expiratory wheeze noted bilaterally); Absent normal lung sounds bilaterally, stridor, accessory muscle use or prolonged expiratory phase Cardiovascular Cardiovascular exam: Present regular rate, normal rhythm and normal heart sounds Abdominal Exam Abdominal exam: Present soft, distention and normal bowel sounds; Absent tenderness, guarding or rebound Abdominal tenderness: Present mild Extremities Exam Extremities exam: Present normal inspection and full ROM; Absent tenderness Back Exam Back exam: Present normal inspection Neurological Exam Neurological exam: Present alert and oriented X3 Psychiatric Psychiatric exam: Present normal affect and normal mood Skin Skin exam: Present warm, dry, intact and normal color; Absent rash HEART Score HEART Score HEART Score assessment performed?: Yes History (anamnesis): Slightly suspicious ECG: Normal Age: >65 years Risk factors: 1-2 risk factors Troponin: 1-3x normal limit HEART Score: 4 Critical Care Critical Care Time Critical Care Time: No Medical Decision Making Medical Records Medical records reviewed: Yes I reviewed the patient's medical records. Tj Inquiry Pt receiving controlled substance: No Tj was queried for this patient: No Vital Signs Vital Signs: 12/03/23 08:38 12/03/23 08:45 12/03/23 09:39 Temperature 97.9 F Temperature Source Oral Pulse Rate 83 76 Pulse Rate [Radial] 78 Respiratory Rate 18 Blood Pressure 119/68 148/73 H Blood Pressure [Left Arm] 133/75 Blood Pressure Mean Blood Pressure Mean [Left Arm] 94 Blood Pressure Source [Left Arm] Automatic Cuff Blood Pressure Position [Left Arm] Sitting 02 Sat by Pulse Oximetry 68 L 93 L 94 L Oxygen Delivery Method Room Air Nasal Cannula Nasal Cannula 12/03/23 10:00 12/03/23 10:16 12/03/23 11:01 Temperature Temperature Source Pulse Rate 74 75 75 Pulse Rate [Radial] Respiratory Rate Blood Pressure 135/71 123/60 120/52 L Blood Pressure [Left Arm] Blood Pressure Mean 76 Blood Pressure Mean [Left Arm] Blood Pressure Source [Left Arm] Blood Pressure Position [Left Arm] 02 Sat by Pulse Oximetry 95 94 L 96 Oxygen Delivery Method Nasal Cannula Room Air Nasal Cannula 12/03/23 11:30 12/03/23 12:00 12/03/23 12:31 Temperature Temperature Source Pulse Rate 76 75 78 Pulse Rate [Radial] Respiratory Rate Blood Pressure 125/58 L 128/74 131/71 Blood Pressure [Left Arm] Blood Pressure Mean 82 92 89 Blood Pressure Mean [Left Arm] Blood Pressure Source [Left Arm] Blood Pressure Position [Left Arm] 02 Sat by Pulse Oximetry 95 94 L 94 L Oxygen Delivery Method Nasal Cannula Nasal Cannula Nasal Cannula 12/03/23 13:00 12/03/23 13:30 12/03/23 14:00 Temperature Temperature Source Pulse Rate 80 82 76 Pulse Rate [Radial] Respiratory Rate Blood Pressure 118/56 L 133/66 134/69 Blood Pressure [Left Arm] Blood Pressure Mean 76 81 90 Blood Pressure Mean [Left Arm] Blood Pressure Source [Left Arm] Blood Pressure Position [Left Arm] 02 Sat by Pulse Oximetry 94 L 95 94 L Oxygen Delivery Method Nasal Cannula Nasal Cannula Nasal Cannula Lab Data Labs: Lab Results 12/03/23 09:49: WBC 9.7, RBC 5.72 H, Hgb 15.0, Hct 48.0 H, MCV 84.0, MCH 26.3 L, MCHC 31.4 L, RDW 18.6 H, Plt Count 251, MPV 9.4, Neut % (Auto) 79.8, Lymph % (Auto) 9.2 L, [place] % (Auto) 7.4, Eos % (Auto) 2.3, Baso % (Auto) 1.3, Neut # (Auto) 7.8, Lymph # (Auto) 0.9, [place] # (Auto) 0.7, Eos # (Auto) 0.2, Baso # (Auto) 0.1, VBG pH 7.37, VBG pCO2 66.4 H, VBG pO2 42.8 H, VBG HCO3 37.6 H, VBG Total CO2 39.6 H, VBG O2 Saturation 75.8 H, VBG Base Excess 12.3 H, VBG Lactic Acid 2.1 H, Sodium 136, Potassium 4.1, Chloride 90 L, Carbon Dioxide 35 H, Anion Gap 15.1 H, BUN 28 H, Creatinine 1.20 H, Estimated Creat Clear 65, Estimated GFR 44 L, Est GFR ( Amer) 53 L, Glucose 246 H, Calcium 8.9, Total Bilirubin 0.5, AST 26, ALT 19, Alkaline Phosphatase 95, Troponin I 0.02, NT-Pro-B Natriuret Pep 1030 H, Total Protein 7.5, Albumin 3.9, Globulin 3.6 H, Albumin/Globulin Ratio 1.1, HIV 1&2 Antibody Rapid Nonreactive 12/03/23 10:11: Chlamy pneumoniae PCR Not detected, Adenovirus (PCR) Not detected, B. pertussis DNA (PCR) Not detected, Coronavirus OC43 (PCR) Not detected, Coronavirus HKU1 (PCR) Not detected, Coronavirus 229E (PCR) Not detected, SARS-CoV-2 (PCR) Not detected, Coronavirus NL63 (PCR) Not detected, Human Metapneumovir PCR Not detected, Influenza A (H1) PCR Not detected, Influ A (H1N1/09) PCR Not detected, Influenza A (H3) PCR Not detected, Influenza Type A (PCR) Not detected, Influenza Type B (PCR) Not detected, M. pneumoniae (PCR) Not detected, Parainfluenza 1 (PCR) Not detected, Parainfluenza 2 (PCR) Not detected, Parainfluenza 3 (PCR) Not detected, Parainfluenza 4 (PCR) Not detected, RSV (PCR) Not detected, Entero/Rhino (PCR) Not detected 12/03/23 13:44: Troponin I 0.02 12/03/23 09:49 12/03/23 09:49 Response Orders (Tests/Meds): ED MEDICATIONS Generic Name Dose Route Start Last Admin Trade Name Freq PRN Reason Stop Dose Admin Sodium Chloride 10 ml 12/03/23 08:43 Sodium Chloride 0.9% 10ml Flush Syringe IV 01/02/24 08:42 NEEDED PRN Maintain IV Site Discontinued Medications Generic Name Dose Route Start Last Admin Trade Name Justyna PRN Reason Stop Dose Admin Albuterol/Ipratropium 6 ml 12/03/23 08:43 12/03/23 09:43 Ipratropium/Albuterol 3 Ml Neb IH 12/03/23 08:44 6 ml ONCE ONE Administration Lactated Ringer's 500 mls @ 250 mls/hr 12/03/23 12:13 12/03/23 12:17 Lactated Ringer's 500ml IV 12/03/23 14:12 250 mls/hr .Q2H ONE Administration Methylprednisolone Sodium Succinate 125 mg 12/03/23 08:43 12/03/23 09:42 Methylprednisolone Sod Succ 125mg Vial IV 12/03/23 08:44 125 mg ONCE ONE Administration ORDERS Category Date Time Status Femur XR left 2 views [XR femur LT 2V] Stat Exams 12/03/23 08:43 Completed Hip XR left minimum 2 views [XR hip LT 2-3V w/pelvis] Exams 12/03/23 08:43 Completed Stat XR chest 2V Stat Exams 12/03/23 08:44 Completed BNP [NT Pro Brain Natriuretic Pep.] Stat Lab 12/03/23 09:49 Completed Complete Blood Count Auto Diff Stat Lab 12/03/23 09:49 Completed Comprehensive Metabolic Panel Stat Lab 12/03/23 09:49 Completed Full Resp Panel w/COVID ([facility]) Routine Lab 12/03/23 10:11 Completed HIV (1&2) Antibody Rapid Stat Lab 12/03/23 09:49 Completed Hep C Ab with Reflex to RNA Stat Lab 12/03/23 09:49 Received Troponin I Q3H Lab 12/03/23 13:44 Completed Troponin I Q3H Lab 12/03/23 18:15 Ordered Troponin I Stat Lab 12/03/23 09:49 Completed Blood Culture Stat Micro 12/03/23 10:42 Received Venous Blood Gas Stat RT 12/03/23 09:49 Completed ECG Data Tracing #1: Attestation: I reviewed this ECG and interpreted as documented below: ECG Narrative: Normal sinus rhythm, right axis deviation, normal intervals, no noted ST elevation. MDM Narrative Medical Decision Narrative: Patient with history and exam per above presenting for evaluation of shortness of breath, chest pain Diagnoses considered include COPD exacerbation, ACS, electrolyte abnormality, pneumonia, upper respiratory virus ED workup and treatment included: As above Labs were independently interpreted by me, significant for no noted acidosis or alkalosis on VBG, patient does have hypercapnia however consistent with history of COPD. Elevated bicarb. Mild elevated lactic acid. Given fluids. Troponin 0.02 ng, stable repeat. Mild elevation of anion gap at 15.1, mildly elevated creatinine does not meet criteria for TESSIE. BNP elevated however stable from prior no noted anemia or leukocytosis. Nonactionable CMP, nonactionable CBC Imaging was independently visualized and interpreted by me, CXR significant for with small bilateral pleural effusions, no noted acute fracture, dislocation, malalignment of femur or hip Please refer to radiology report for full details. My clinical impression at this time is most consistent with shortness of breath. On reassessment patient states she is feeling better. Complaining of a slight headache, given Tylenol. Patient remained hemodynamically stable throughout time in ED. At this time medically clear for discharge with outpatient follow- up. Patient agreeable with this plan. Given instructions to return to ED if symptoms worsen. I discussed my clinical impression with patient and answered all questions. At this time, the evidence for any other entities in the differential is insufficient to warrant any further testing or ED observation. This was explained to the patient. The patient was advised that persistent or worsening symptoms require further evaluation.
--- NOTE | 2023-12-03 09:06 | PC.NURSE ---
PT TO XR
[2023-12-03] MEDS: METHYLPREDNISOLONE SOD SUCC 125MG VIAL 125 MG IV (09:42)
[2023-12-03] MEDS: IPRATROPIUM/ALBUTEROL 3 ML NEB 6 ML IH (09:43)
[2023-12-03 09:58] LABS: VBG Base Excess 12.3 mmol/L (-2.4-2.3); VBG HCO3 37.6 mmol/L (23-30); VBG Oxygen Saturation 75.8 % (50-70); VBG PH 7.37 mmol/L (7.31-7.41); VBG PO2 42.8 mmol/L (28-40); VBG Total CO2 39.6 mmol/L (23-27)
[2023-12-03 10:01] LABS: Basophils # 0.1 K/mm3 (0-0.2); Basophils % 1.3 % (0.1-2.0); Eosinophils # 0.2 K/mm3 (0.0-0.4); Eosinophils % 2.3 % (0.1-12.0); Lymphocytes # 0.9 K/mm3 (0.7-4.5); Lymphocytes % 9.2 % (10-50); Mean Corpuscular HGB Conc 31.4 g/dL (31.8-35.4); Mean Corpuscular Hemoglobin 26.3 pg (27.0-31.2); Mean Platelet Volume 9.4 fl (7.4-10.4); Monocytes # 0.7 K/mm3 (0.1-1.0); Monocytes % 7.4 % (1.7-9.3); Neutrophils # 7.8 K/mm3 (1.8-7.8); Neutrophils % 79.8 % (37.0-80.0); Platelet Count 251 K/mm3 (142-424); Red Blood Count 5.72 M/mm3 (4.20-5.40); Red Cell Distribution Width 18.6 % (11.5-17.5); White Blood Count 9.7 K/mm3 (4.8-10.8)
[2023-12-03 10:03] LABS: Lactate Venous 2.1 mmol/L (0.4-2.0); VBG PCO2 66.4 mmol/L (35-51)
[2023-12-03 10:13] LABS: Albumin Level 3.9 g/dl (3.5-5.0); Chloride 90 mmol/L (98-107); Potassium 4.1 mmoL/L (3.5-5.1); Sodium 136 mmol/L (136-145)
[2023-12-03 10:16] LABS: Alanine Aminotransferase 19 U/L (12-78); Albumin/Globulin Ratio 1.1 (1.1-1.8); Alkaline Phosphatase 95 U/L (38-126); Aspartate Amino Transferase 26 U/L (14-36); Bilirubin,Total 0.5 mg/dl (0.2-1.3); Blood Urea Nitrogen 28 mg/dl (7-17); Creatinine Clearance Estimated 65 mL/min (50-200); Estimated Glomerular Filt Rate 44 ml/min (>60); GFR (African American) 53 ML/MIN (>60); Globulin 3.6 g/dL (1.3-3.2); Total Protein,Serum 7.5 g/dl (6.3-8.2)
[2023-12-03 10:16] LABS: Adenovirus,PCR Not Detected (NotDetected); Bordetella Pertussis Not Detected (NotDetected); Chlamydophila Pneumoniae, PCR Not Detected (NotDetected); Coronavirus 19, PCR Not Detected (NotDetected); Coronavirus 229E Not Detected (NotDetected); Coronavirus NL63 Not Detected (NotDetected); Coronavirus OC43 Not Detected (NotDetected); Coronovirus HKU1,PCR Not Detected (NotDetected); Human Metapneumovirus Not Detected (NotDetected); Influenza A, PCR Not Detected (NotDetected); Influenza AH1, 2009 Not Detected (NotDetected); Influenza AH1, PCR Not Detected (NotDetected); Influenza AH3,PCR Not Detected (NotDetected); Influenza B, PCR Not Detected (NotDetected); Mycoplasma Pneumoniae, PCR Not Detected (NotDetected); Parainfluenza 1, PCR Not Detected (NotDetected); Parainfluenza 2, PCR Not Detected (NotDetected); Parainfluenza 3, PCR Not Detected (NotDetected); Parainfluenza 4, PCR Not Detected (NotDetected); Respiratory Syncytial Virus Not Detected (NotDetected); Rhinovirus/Enterovirus Not Detected (NotDetected)
[2023-12-03 10:17] LABS: Calcium 8.9 mg/dl (8.4-10.2); Glucose 246 mg/dl (74-100)
[2023-12-03 10:23] LABS: Anion Gap 15.1 mEq/L (5-15); Carbon Dioxide 35 mmol/L (22.0-30.0)
[2023-12-03 11:19] LABS: NT Pro Brain Natriuretic Pep. 1030 pg/mL (0-125)
[2023-12-03] MEDS: RINGERS SOLUTION,LACTATED 500 ML 250 ML IV (12:17)
[2023-12-03 12:35] LABS: Troponin I 0.02 ng/ml (0.00-0.034)
[2023-12-03 14:02] LABS: Reflex Lactic Add Lactic Reflex
[2023-12-03 14:17] LABS: Troponin I 0.02 ng/ml (0.00-0.034)
[2023-12-03 14:17] LABS: HIV (1&2) Antibody Rapid NONREACTIVE (NONREACTIVE)
--- NOTE | 2023-12-03 14:35 | PC.NURSE ---
REPORT CALLED TO KALEB
--- NOTE | 2023-12-03 14:40 | PC.NURSE ---
[facility] NOTIFIED OF TRANSFER
[2023-12-03] MEDS: ACETAMINOPHEN 500MG TAB 500 MG PO (14:50)
[2023-12-04 09:38] LABS: HCV Ab Non Reactive (Non Reactive)
== END 2023-12-03 15:12 | disposition home or self-care (01) ==
PROVIDERS: Emergency Provider Student in an Organized Health Care Education/Training Program
DX: R06.02 Shortness of breath (principal); R07.1 Chest pain on breathing; M25.552 Pain in left hip
CPT/HCPCS: 71046; 73502; 73552; 80053; 82803; 83880; 84484; 85025; 86803; 87040; 87265; 87389; 87486; 87581; 87632; 87635; 93005; 96361; 96374; 99284; J2919; J7120; J7620

== ENCOUNTER 2023-12-11 11:14 | Outpatient (CLI) | payer MEDICARE, MEDICAID, SELFPAY | END 2023-12-11 23:59 | disposition home or self-care (01) | LOC: LAB.DROPOF 11:15 | PROVIDERS: PCP Internal Medicine Adolescent Medicine; Visit Provider Internal Medicine Adolescent Medicine | DX: J44.9 Chronic obstructive pulmonary disease, unspecified (principal); J96.92 Respiratory failure, unspecified with hypercapnia | CPT/HCPCS: 87070; 87205 ==

== ENCOUNTER 2023-12-17 07:36 | Observation (INO) | payer MEDICARE, MEDICAID, SELFPAY ==
[2023-12-17] VITALS (24 sets, daily range): BP systolic 94–158; BP diastolic 44–103; PULSE 50–77; RESP 16–23; TEMP 36.3–37.3; O2SAT 61–100; BMI 38.9; BMI 37.8
--- NOTE | 2023-12-17 07:45 | XR_ITS ---
FINAL REPORT CLINICAL HISTORY: cough, L sided wheeze COMPARISON: 09/11/2023 FINDINGS: A single portable view of the chest was obtained. The heart is enlarged. The pulmonary vascularity is within normal limits. The mediastinum is within normal limits. There is mild pulmonary scarring/fibrosis. The bony thorax is intact. There are mild degenerative changes of the right shoulder. IMPRESSION: Pulmonary scarring/fibrosis. Reviewed, Interpreted and Dictated by Delfino Ruth III, MD Transcribed by Maria Esther Owen Authenticated and [facility]
--- NOTE | 2023-12-17 07:48 | [facility].EDCP ---
Discharge Plan Disposition Patient Disposition: Admitted Chief Complaint: Shortness of Breath/Dyspnea Prescriptions Prescriptions: No Action bumetanide 2 mg tablet 2 mg PO BID Qty: 60 3RF ammonium lactate 12 % lotion topical doxycycline hyclate 100 mg tablet 100 mg PO BID pregabalin 75 mg capsule 75 mg PO (DME) BD AutoShield Duo Pen Needle 30 gauge x 3/16 needle See Rx Instructions .ROUTE .MEDSUPPLY Qty: 100 Rx Instructions: As directed insulin glargine-yfgn 100 unit/mL (3 mL) insulin pen SQ ergocalciferol (vitamin D2) 1,250 mcg (50,000 unit) capsule 1,250 mcg PO DIRECTED Patient Comments: TAKE 1 CAPSULE BY MOUTH EVERY TWO WEEKS (TWICE A MONTH) Rx Instructions: EVERY OTHER WEEK cetirizine 10 mg tablet 10 mg PO DAILY doxycycline hyclate 100 mg capsule 100 mg PO BID 5 Days Qty: 10 0RF prednisone 20 mg tablet 40 mg PO DAILY 5 Days Qty: 10 0RF Rx Instructions: Take 40mg daily for 5 days albuterol sulfate 90 mcg/actuation HFA aerosol inhaler 2 puff INHALATION Q4HP PRN (Reason: Shortness Of Breath Or Wheezing) multivitamin Tablet 1 tab PO DAILY omeprazole 40 mg Capsule,Delayed Release(Dr/Ec) 40 mg PO HS icosapent ethyl [Vascepa] 1 gram Capsule 1 g PO BID docusate sodium 100 mg Tablet 100 mg PO BID ferrous sulfate 324 mg (65 mg iron) Tablet,Delayed Release (Dr/Ec) 324 mg PO DAILY Eliquis 5 mg Tablet 5 mg PO BID nitroglycerin 0.4 mg Tablet, Sublingual 0.4 mg SUBLINGUAL Q5MINP PRN (Reason: Chest Pain) Rx Instructions: do not exceed 3 doses per episode insulin lispro 100 unit/mL Insulin Pen 0 sliding scale dose SQ ACHS Rx Instructions: 101-150 3 UNITS 151-200 4 UNITS 201-250 6 UNITS 251-300 9 UNITS 301-350 12 UNITS 351-400 15 UNITS albuterol sulfate 2.5 mg /3 mL (0.083 %) Solution For Nebulization 2.5 mg inhalation Q4HP PRN (Reason: shortness of air or wheezing) acetaminophen 500 mg Tablet 500 mg PO AC gabapentin 300 mg Capsule 300 mg PO BID buspirone 10 mg tablet 10 mg PO TID hydrocodone-acetaminophen 5-325 mg tablet 1 tab PO Q12HP PRN (Reason: Moderate Pain (Scale Score 5-6)) paroxetine HCl [Paxil] 40 mg Tablet 40 mg PO HS spironolactone 50 mg tablet 50 mg PO DAILY rosuvastatin 10 mg tablet 10 mg PO HS Trelemariah Ellipta 100-62.5-25 mcg blister with device 1 inh INHALATION DAILY polyethylene glycol 3350 17 gram/dose powder 17 g PO DAILY clopidogrel 75 mg Tablet 75 mg PO DAILY miconazole nitrate 2 % Cream 1 applic TOPICAL BID clobetasol 0.05 % Shampoo 1 applic TOPICAL HS levothyroxine 50 mcg Tablet 50 mcg PO DAILYDM ondansetron 4 mg Tablet,Disintegrating 4 mg PO Q6HP PRN (Reason: Nausea And Vomiting) insulin glargine [Lantus Solostar U-100 Insulin] 100 unit/mL (3 mL) Insulin Pen 14 unit SQ HS Jardiance 10 mg tablet 10 mg PO DAILY Referrals Follow up/Referrals: Tone Ward [Primary Care Provider] - See instructions Clinical Impressions Clinical Impression: Respiratory failure, Edema Print Language Print Language: Swedish Discharge ED Provider: Nelson Beckman HPI General Chief Complaint: Shortness of Breath/Dyspnea Stated Complaint: soa Time Seen by Provider: 12/17/23 07:40 History of Present Illness HPI narrative: Patient is a 73-year-old female with past medical history of chronic respiratory failure mixed type intermittently on BiPAP at night chronically on nasal cannula 3 L, obstructive sleep apnea, heart failure, diabetes, hypertension, pulmonary hypertension who presents emergency department for evaluation of shortness of breath and cough. Onset was acute, over the last 24 hours. Today she was at the long-term that she lives that when she was noticed to be in the high 70s on BiPAP 3 L . Upon EMS arrival they cannot obtain patient paperwork because the printer was broken. She is a DNR/DNI. No chest pain reported. Her bilateral lower extremities are chronically swollen however she thinks they are a little bit worse than normal. She does not wear compression stockings because they swell worse when I wear them . And route patient was placed on 5 L nasal cannula with resolution of hypoxia into the high 90s and she was given a breathing treatment. No abdominal pain. No other acute complaints at this time. Related Data Home Medications ?Medication ?Instructions ?Recorded ?Confirmed ergocalciferol (vitamin D2) 1,250 1,250 mcg PO DIRECTED 08/12/20 11/13/23 mcg (50,000 unit) capsule albuterol sulfate 90 mcg/actuation 2 puff inhalation Q4HP PRN 12/18/22 11/13/23 aerosol inhaler Shortness Of Breath Or Wheezing apixaban 5 mg tablet (Eliquis) 5 mg PO BID 12/18/22 11/13/23 docusate sodium 100 mg tablet 100 mg PO BID 12/18/22 11/13/23 ferrous sulfate 324 mg (65 mg 324 mg PO DAILY 12/18/22 11/13/23 iron) tablet,delayed release icosapent ethyl 1 gram capsule 1 g PO BID 12/18/22 11/13/23 (Vascepa) insulin lispro 100 unit/mL 0 sliding scale dose SQ ACHS 12/18/22 11/13/23 subcutaneous pen Diabetes multivitamin 1 tab PO DAILY 12/18/22 11/13/23 nitroglycerin 0.4 mg sublingual 0.4 mg sublingual Q5MINP PRN Chest 12/18/22 11/13/23 tablet Pain omeprazole 40 mg capsule,delayed 40 mg PO HS 12/18/22 11/13/23 release acetaminophen 500 mg tablet 500 mg PO AC 12/19/22 11/13/23 albuterol sulfate 2.5 mg/3 mL 2.5 mg inhalation Q4HP PRN 12/19/22 11/13/23 (0.083 %) solution for nebulization shortness of air or wheezing gabapentin 300 mg capsule 300 mg PO BID 12/19/22 11/13/23 hydrocodone 5 mg-acetaminophen 325 1 tab PO Q12HP PRN Moderate Pain 01/12/23 11/13/23 mg tablet (Scale Score 5-6) clopidogrel 75 mg tablet 75 mg PO DAILY 03/18/23 11/13/23 clobetasol 0.05 % shampoo 1 applic topical HS 04/19/23 11/13/23 empagliflozin 10 mg tablet 10 mg PO DAILY 04/19/23 11/13/23 (Jardiance) insulin glargine 100 unit/mL (3 14 unit SQ HS Diabetes 04/19/23 11/13/23 mL) subcutaneous pen (Lantus Solostar U-100 Insulin) levothyroxine 50 mcg tablet 50 mcg PO DAILYDM 04/19/23 11/13/23 miconazole nitrate 2 % topical 1 applic topical BID 04/19/23 11/13/23 cream ondansetron 4 mg disintegrating 4 mg PO Q6HP PRN Nausea And 04/19/23 11/13/23 tablet Vomiting buspirone 10 mg tablet 10 mg PO TID 07/04/23 11/13/23 cetirizine 10 mg tablet 10 mg PO DAILY 08/07/23 11/13/23 fluticasone fur. 100 mcg-umeclid 1 inh inhalation DAILY 08/13/23 11/13/23 62.5 mcg-vilant 25 mcg inhalat.powder (Trelegy Ellipta) paroxetine HCl 40 mg tablet (Paxil) 40 mg PO HS 08/13/23 11/13/23 rosuvastatin 10 mg tablet 10 mg PO HS 08/13/23 11/13/23 spironolactone 50 mg tablet 50 mg PO DAILY 08/13/23 11/13/23 polyethylene glycol 3350 17 17 g PO DAILY 08/14/23 11/13/23 gram/dose oral powder insulin glargine-yfgn 100 unit/mL unit SQ 09/17/23 11/13/23 (3 mL) subcutaneous pen pen needle,diabetic dual safty 30 #100 ea 09/17/23 11/13/23 gauge x 3/16 (BD AutoShield Duo Pen Needle) pregabalin 75 mg capsule 75 mg PO 09/17/23 11/13/23 ammonium lactate 12 % lotion topical 09/26/23 11/13/23 doxycycline hyclate 100 mg tablet 100 mg PO BID 09/26/23 11/13/23 Previous Rx's ?Medication ?Instructions ?Recorded bumetanide 2 mg tablet 2 mg PO BID #60 tabs 04/30/23 doxycycline hyclate 100 mg capsule 100 mg PO BID 5 days #10 caps 11/13/23 prednisone 20 mg tablet 40 mg (2 x 20 mg) PO DAILY 5 days 11/13/23 #10 tabs Allergies Allergy/AdvReac Type Severity Reaction Status Date / Time cephalexin Allergy Verified 11/13/23 15:16 Penicillins Allergy Verified 11/13/23 15:16 [facility] Disclaimer: The information contained in this section may have been updated after the patient was seen, as this information can be updated by other users. Medical History Accidental overdose Chronic respiratory failure with hypoxia and hypercapnia Lung nodule Rotator cuff arthropathy of right shoulder Acute anterior epistaxis Chronic hypoxemic respiratory failure O2 dependent Nodule of left lung Heart attack Encounter for screening for malignant neoplasm of lung COPD mixed type History of smoking 30 or more pack years Dyspnea Bilateral hearing loss due to cerumen impaction Encounter for removal of nasal packing CAD in [place] artery Cardiomyopathy Non-STEMI (non-ST elevated myocardial infarction) Right ventricular dilation Coronary artery disease HFrEF (heart failure with reduced ejection fraction) Pneumonia Diabetes mellitus, type 2 Iron deficiency anemia Pulmonary hypertension Osteoporosis Major depressive disorder Heart failure Depression Lymphedema Insomnia Class 2 obesity due to excess calories with body mass index (BMI) of 39.0 to 39.9 in adult Fibromyalgia Congestive heart failure Atrial fibrillation Anxiety HTN (hypertension) HLD (hyperlipidemia) COPD (chronic obstructive pulmonary disease) BMI 30.0-30.9,adult Osteoarthritis Callus of foot Paresthesia of both lower extremities Onychodystrophy Onychomycosis Diabetic foot Surgical History History of coronary artery stent placement History of bladder surgery H/O: hysterectomy H/O hernia repair Family History Other Diabetes Hyperlipidemia Hypertension No significant family history Social History Smoking Status: Smoker, status unknown tobacco type: cigarettes packs per day: 2 alcohol intake: never substance use type: denies use current occupational status: retired and disabled Travel in the last 8 weeks: None housing: long-term lives independently: No long-term: Yes caffeine: Yes Other Medical History Have you received the Flu Vaccine for this season: No Have you received the Pneumonia Vaccine: Yes ROS Obtained: Yes Systems reviewed as appropriate & no additional complaints except as documented Physical Exam General General appearance: alert and in no apparent distress Head Head exam: atraumatic and normocephalic Eye Eye exam: Present PERRL ENT ENT exam: Present mucous membranes moist Neck Neck exam: Present normal inspection Chest Chest inspection: Present normal inspection and symmetric chest wall rise Respiratory Respiratory exam: Present respiratory distress (Tachypnea) and wheezes (Right lower lung) Cardiovascular Cardiovascular exam: Present regular rate and normal rhythm Abdominal Exam Abdominal exam: Present soft; Absent tenderness Extremities Exam Extremities exam: Present edema (Significant edema with slight erythema bilateral lower extremities distal to the knee) Neurological Exam Neurological exam: Present alert and oriented X3 Psychiatric Psychiatric exam: Present normal affect Skin Skin exam: Present warm and dry HEART Score HEART Score HEART Score assessment performed?: Yes History (anamnesis): Slightly suspicious ECG: Non-specific disturbance Age: >65 years Risk factors: 3 or more risk factors Troponin: </= normal limit HEART Score: 5 Critical Care Critical Care Time Critical Care Time: Yes Attestation: On 12/17/23, the high probability of a clinically significant, sudden or life threatening deterioration of the following system(s) required my full and direct attention, intervention and personal management. The time I documented below is in addition to time spent performing reported procedures but includes the following listed in this critical care notation. Total Time Total Critical Care Time: 45 Medical Decision Making Tj Inquiry Pt receiving controlled substance: No Vital Signs Vital Signs: 12/17/23 07:36 12/17/23 07:36 12/17/23 07:45 Temperature 98.0 F Temperature Source Oral Pulse Rate 72 67 Pulse Rate [Apical] 70 Respiratory Rate 20 Blood Pressure 151/103 H 127/61 Blood Pressure [Right Arm] 153/103 H Blood Pressure Mean 133 104 Blood Pressure Mean [Right Arm] 119 Blood Pressure Source [Right Arm] Automatic Cuff Blood Pressure Position [Right Arm] Sitting 02 Sat by Pulse Oximetry 100 98 98 Oxygen Delivery Method Nasal Cannula Oxygen Flow Rate (LPM) 5 12/17/23 08:02 12/17/23 08:25 12/17/23 08:31 Temperature Temperature Source Pulse Rate 64 69 Pulse Rate [Apical] Respiratory Rate 16 Blood Pressure 112/68 102/83 L Blood Pressure [Right Arm] Blood Pressure Mean 97 Blood Pressure Mean [Right Arm] Blood Pressure Source [Right Arm] Blood Pressure Position [Right Arm] 02 Sat by Pulse Oximetry 95 96 96 Oxygen Delivery Method Nasal Cannula BiPAP BiPAP Oxygen Flow Rate (LPM) 5 12/17/23 09:00 Temperature Temperature Source Pulse Rate 68 Pulse Rate [Apical] Respiratory Rate 21 Blood Pressure 95/44 L Blood Pressure [Right Arm] Blood Pressure Mean Blood Pressure Mean [Right Arm] Blood Pressure Source [Right Arm] Blood Pressure Position [Right Arm] 02 Sat by Pulse Oximetry 93 L Oxygen Delivery Method BiPAP Oxygen Flow Rate (LPM) Lab Data Labs: Lab Results 12/17/23 07:40: WBC 10.8, RBC 5.83 H, Hgb 15.7, Hct 49.8 H, MCV 85.4, MCH 26.9 L, MCHC 31.6 L, RDW 18.7 H, Plt Count 269, MPV 9.3, Neut % (Auto) 76.9, Lymph % (Auto) 10.4, Henry % (Auto) 6.6, Eos % (Auto) 4.3, Baso % (Auto) 1.8, Neut # (Auto) 8.3 H, Lymph # (Auto) 1.1, Henry # (Auto) 0.7, Eos # (Auto) 0.5 H, Baso # (Auto) 0.2, Sodium 135 L, Potassium 4.3, Chloride 88 L, Carbon Dioxide 38 H, Anion Gap 13.3, BUN 28 H, Creatinine 1.30 H, Estimated Creat Clear 62, Estimated GFR 40 L, Est GFR ( Amer) 48 L, Glucose 235 H, Calcium 8.7, Total Bilirubin 0.5, AST 23, ALT 19, Alkaline Phosphatase 81, Troponin I 0.01, NT-Pro-B Natriuret Pep 1870 H, Total Protein 7.3, Albumin 3.7, Globulin 3.6 H, Albumin/Globulin Ratio 1.0 L 12/17/23 07:53: SARS-CoV-2 (PCR) Not detected, Influenza A Untype (PCR) Not detected, Influenza Type B (PCR) Not detected 12/17/23 08:00: VBG pH 7.29 L, VBG pCO2 84.7 H, VBG pO2 47.1 H, VBG HCO3 40.2 H, VBG Total CO2 42.8 H, VBG O2 Saturation 75.7 H, VBG Base Excess 13.7 H, VBG Lactic Acid 2.9 H 12/17/23 07:40 12/17/23 07:40 Response Orders (Tests/Meds): ED MEDICATIONS Generic Name Dose Route Start Last Admin Trade Name Freq PRN Reason Stop Dose Admin Magnesium Sulfate 2 gm in 50 mls @ 50 mls/hr 12/17/23 08:30 12/17/23 09:21 Magnesium Sulfate 2gm/50ml Premix IV 01/16/24 08:29 50 mls/hr ONCE JÚNIOR Administration Discontinued Medications Generic Name Dose Route Start Last Admin Trade Name Justyna PRN Reason Stop Dose Admin Acetaminophen 1,000 mg 12/17/23 08:31 12/17/23 08:40 Acetaminophen 1,000mg/100ml Vial IV 12/17/23 08:32 1,000 mg ONCE ONE Administration Albuterol/Ipratropium 3 ml 12/17/23 07:46 12/17/23 08:02 Ipratropium/Albuterol 3 Ml Count includes the [facility] 12/17/23 07:47 3 ml ONCE ONE Administration Albuterol/Ipratropium 3 ml 12/17/23 08:11 Ipratropium/Albuterol 3 Ml Count includes the [facility] 12/17/23 08:12 ONCE ONE Furosemide 40 mg 12/17/23 09:05 12/17/23 09:21 Furosemide 40mg/4ml Vial IV 12/17/23 09:06 40 mg ONCE ONE Administration Azithromycin 500 mg/ Sodium 250 mls @ 250 mls/hr 12/17/23 09:18 Chloride IV 12/17/23 09:19 ONCE ONE Methylprednisolone Sodium Succinate 125 mg 12/17/23 07:46 12/17/23 08:02 Methylprednisolone Sod Succ 125mg Vial IV 12/17/23 07:47 125 mg ONCE ONE Administration ORDERS Category Date Time Status CXR --portable [XR chest portable] Stat Exams 12/17/23 07:45 Completed POCUS Point of Care (ER Only) Stat Exams 12/17/23 07:45 Completed BNP [NT Pro Brain Natriuretic Pep.] Stat Lab 12/17/23 07:40 Completed CBC w/Auto Diff [Complete Blood Count Auto Diff] Stat Lab 12/17/23 07:40 Completed CMP [Comprehensive Metabolic Panel] Stat Lab 12/17/23 07:40 Completed Full Resp Panel w/COVID ([facility]) Routine Lab 12/17/23 09:17 Ordered Rapid PCR Covid and Flu A/B Stat Lab 12/17/23 07:53 Completed Trop I [Troponin I] Stat Lab 12/17/23 07:40 Completed Troponin I Q3H Lab 12/17/23 10:45 Ordered Troponin I Q3H Lab 12/17/23 13:45 Ordered VBG [Venous Blood Gas] Stat RT 12/17/23 08:00 Completed ECG Data Tracing #1: ECG Narrative: Rate is 69, rhythm is irregular, no overt ST elevation in anatomical contiguous leads, QTc 438, significant chatter limits diagnostic capability of this EKG. Tracing #2: ECG Narrative: Independently interpreted by me rate is 80, rhythm is irregular, axis is normal, no ST elevation in anatomical contiguous leads, atrial fibrillation versus flutter, QTc 440, isolated PVC MDM Narrative Medical Decision Narrative: In summary patient is a 73-year-old female with past medical history described above who presents emergency department for evaluation of shortness of breath and cough. Patient is hemodynamically stable and nontoxic-appearing upon arrival, afebrile, saturating in the high 90s on nasal cannula. Patient is wheezing in the right lower lung. Additional DuoNeb will be given as well as methylprednisolone. Differential includes viral lower respiratory tract infection, pneumonia, CHF, among others. Workup we conducted with hematologic labs, chest x-ray, EKG, troponin. Initial workup reviewed by me, no significant leukocytosis, hypercarbic acidosis, no TESSIE or critical electrolyte abnormality mild hyperglycemia without elevated anion gap initial troponin 0.01, BNP 1870. Given volume overload Lasix 40 mg will be given. Chest x-ray informally interpreted by me, chronic lung disease without acute lobar opacities or large pneumothorax. Formal read shows pulmonary scarring. BiPAP rate of 20 pressure 16 over 8, 40% FiO2. I discussed case with Dr. Hemphill regarding management who agrees with inpatient management at this time. Patient will be admitted to their service for continued evaluation. Procedure: Procedure performed was ultrasound-guided IV. Procedure performed by Nelson Beckman. Using real ultrasound guidance a long peripheral 20-gauge catheter was inserted into the left brachial vein. Vessel cannula was patent. Images were not saved to permanent archive. Patient tolerated procedure well. There were no immediate complications.
--- NOTE | 2023-12-17 07:50 | ECG_ITS ---
APPROVED REPORT Exam: Resting ECG HR:80 bpm ECG Measurements Heart Rate 80 AXES QRSd 100 QRS 113 QT 404 T 55 QTc 440 Conclusion ATRIAL FLUTTER/TACHYCARDIA WITH ABERRANT CONDUCTION OR VENTRICULAR PREMATURE COMPLEXES ST DEPRESSION, CONSIDER SUBENDOCARDIAL INJURY [0.1+ mV ST DEPRESSION] ABNORMAL ECG Electronically signed by : AMY MUHAMMAD, 12/17/2023 16:59:07
[2023-12-17 07:52] LABS: Basophils # 0.2 K/mm3 (0-0.2); Basophils % 1.8 % (0.1-2.0); Eosinophils # 0.5 K/mm3 (0.0-0.4); Eosinophils % 4.3 % (0.1-12.0); Hematocrit 49.8 % (37.0-47.0); Hemoglobin 15.7 g/dL (12.2-16.2); Lymphocytes # 1.1 K/mm3 (0.7-4.5); Lymphocytes % 10.4 % (10-50); Mean Corpuscular HGB Conc 31.6 g/dL (31.8-35.4); Mean Corpuscular Hemoglobin 26.9 pg (27.0-31.2); Mean Corpuscular Volume 85.4 fl (81-99); Mean Platelet Volume 9.3 fl (7.4-10.4); Monocytes # 0.7 K/mm3 (0.1-1.0); Monocytes % 6.6 % (1.7-9.3); Neutrophils # 8.3 K/mm3 (1.8-7.8); Neutrophils % 76.9 % (37.0-80.0); Platelet Count 269 K/mm3 (142-424); Red Blood Count 5.83 M/mm3 (4.20-5.40); Red Cell Distribution Width 18.7 % (11.5-17.5); White Blood Count 10.8 K/mm3 (4.8-10.8)
--- NOTE | 2023-12-17 07:53 | PC.NURSE ---
resp was called about vbg order
[2023-12-17 07:55] LABS: Coronavirus 19, PCR Not Detected (NotDetected); Influenza A, PCR Not Detected (NotDetected); Influenza B, PCR Not Detected (NotDetected)
--- NOTE | 2023-12-17 07:55 | PC.NURSE ---
xray at bs
[2023-12-17 08:02] LABS: VBG Base Excess 13.7 mmol/L (-2.4-2.3); VBG HCO3 40.2 mmol/L (23-30); VBG Oxygen Saturation 75.7 % (50-70); VBG PH 7.29 mmol/L (7.31-7.41); VBG PO2 47.1 mmol/L (28-40); VBG Total CO2 42.8 mmol/L (23-27)
[2023-12-17] MEDS: METHYLPREDNISOLONE SOD SUCC 125MG VIAL 125 MG IV (08:02)
[2023-12-17] MEDS: IPRATROPIUM/ALBUTEROL 3 ML NEB IH ×4 (08:02→22:31)
[2023-12-17 08:06] LABS: Lactate Venous 2.9 mmol/L (0.4-2.0); VBG PCO2 84.7 mmol/L (35-51)
[2023-12-17 08:06] LABS: Albumin Level 3.7 g/dl (3.5-5.0); Chloride 88 mmol/L (98-107); Potassium 4.3 mmoL/L (3.5-5.1); Sodium 135 mmol/L (136-145)
[2023-12-17 08:08] LABS: Blood Urea Nitrogen 28 mg/dl (7-17); Creatinine Clearance Estimated 62 mL/min (50-200); Estimated Glomerular Filt Rate 40 ml/min (>60); GFR (African American) 48 ML/MIN (>60)
--- NOTE | 2023-12-17 08:08 | PC.NURSE ---
RESPIRATORY NOTIFIED OF BI-PAP ORDER
[2023-12-17 08:09] LABS: Alanine Aminotransferase 19 U/L (12-78); Alkaline Phosphatase 81 U/L (38-126); Aspartate Amino Transferase 23 U/L (14-36); Bilirubin,Total 0.5 mg/dl (0.2-1.3); Globulin 3.6 g/dL (1.3-3.2); Total Protein,Serum 7.3 g/dl (6.3-8.2)
--- NOTE | 2023-12-17 08:12 | PC.NURSE ---
RESPIRATORY AT BEDSIDE, PT PLACED ON BI-PAP
[2023-12-17 08:22] LABS: Calcium 8.7 mg/dl (8.4-10.2); Glucose 235 mg/dl (74-100)
[2023-12-17 08:30] LABS: Anion Gap 13.3 mEq/L (5-15); Carbon Dioxide 38 mmol/L (22.0-30.0)
[2023-12-17 08:35] LABS: NT Pro Brain Natriuretic Pep. 1870 pg/mL (0-125)
[2023-12-17 08:36] LABS: Troponin I 0.01 ng/ml (0.00-0.034)
[2023-12-17] MEDS: ACETAMINOPHEN 1,000MG/100ML VIAL 1000 MG IV (08:40)
[2023-12-17] MEDS: MAGNESIUM SULFATE IN WATER 2 GM/50 ML PIGGYBACK IV (09:21)
[2023-12-17] MEDS: FUROSEMIDE 40MG/4ML VIAL 40 MG IV (09:21)
--- NOTE | 2023-12-17 09:37 | PC.NURSE ---
DR MUHAMMAD SPEAKING WITH DR HARDY FOR ADMISSION
--- NOTE | 2023-12-17 09:42 | P.HP_ITS ---
History of Present Illness *Admission Date: 12/17/23 *Reason for visit:: confused, acute on chronic hypercapneic respiratory failure *History of present illness: Ms. Sena is a 73-year-old female well-known to our facility with history of hypertension, hyperlipidemia, COPD on 3 L, A-fib on Eliquis, CHF, sleep apnea necessitating BiPAP nightly. She lives at a long-term care facility. Presented to the ER via EMS due to lethargy and concern for confusion. Found to have elevated CO2. Appears patient is not wearing her BiPAP at night and has developed confusion due to hypercarbia. Blood gas consistent with hypercapnic respiratory failure. Patient somnolent in the ER. Given her encephalopathy and severe hypercapnia, ER request admission for further management. Patient denies any fever, chest pain, nausea or vomiting. Will wake to sternal rub on the floor and answer questions but then dozes back off. Remains bradycardic, noted last visit. Blood pressure normal. Slight improvement after wearing BiPAP for a few hours. Appears somnolent [facility] Disclaimer: The information contained in this section may have been updated after the patient was seen, as this information can be updated by other users. Medical History Accidental overdose Chronic respiratory failure with hypoxia and hypercapnia Lung nodule Rotator cuff arthropathy of right shoulder Acute anterior epistaxis Chronic hypoxemic respiratory failure Nodule of left lung Heart attack Encounter for screening for malignant neoplasm of lung COPD mixed type History of smoking 30 or more pack years Dyspnea Bilateral hearing loss due to cerumen impaction Encounter for removal of nasal packing CAD in [place] artery Cardiomyopathy Non-STEMI (non-ST elevated myocardial infarction) Right ventricular dilation Coronary artery disease HFrEF (heart failure with reduced ejection fraction) Pneumonia Diabetes mellitus, type 2 Iron deficiency anemia Pulmonary hypertension Osteoporosis Major depressive disorder Heart failure Depression Lymphedema Insomnia Class 2 obesity due to excess calories with body mass index (BMI) of 39.0 to 39.9 in adult Fibromyalgia Congestive heart failure Atrial fibrillation Anxiety HTN (hypertension) HLD (hyperlipidemia) COPD (chronic obstructive pulmonary disease) BMI 30.0-30.9,adult Osteoarthritis Callus of foot Paresthesia of both lower extremities Onychodystrophy Onychomycosis Diabetic foot Surgical History History of coronary artery stent placement History of bladder surgery H/O: hysterectomy H/O hernia repair Family History Other Diabetes Hyperlipidemia Hypertension No significant family history Social History Smoking Status: Smoker, status unknown tobacco type: cigarettes packs per day: 2 alcohol intake: never substance use type: denies use current occupational status: retired and disabled Travel in the last 8 weeks: None housing: jail lives independently: No jail: Yes caffeine: Yes Other Medical History Have you received the Flu Vaccine for this season: No Have you received the Pneumonia Vaccine: Yes Review of Systems Review of Systems Review of systems (narrative): 14 point review of systems performed, pertinent positives and negatives as per [facility] Meds Home Medications and Allergies Home Medications ?Medication ?Instructions ?Recorded ?Confirmed ?Type ergocalciferol (vitamin D2) 1,250 1,250 mcg PO DIRECTED 08/12/20 12/17/23 History mcg (50,000 unit) capsule albuterol sulfate 90 mcg/actuation 2 puff inhalation Q4HP PRN 12/18/22 12/17/23 History aerosol inhaler Shortness Of Breath Or Wheezing apixaban 5 mg tablet (Eliquis) 5 mg PO BID 12/18/22 12/17/23 History docusate sodium 100 mg tablet 100 mg PO BID 12/18/22 12/17/23 History ferrous sulfate 324 mg (65 mg 324 mg PO DAILY 12/18/22 12/17/23 History iron) tablet,delayed release icosapent ethyl 1 gram capsule 1 g PO BID 12/18/22 12/17/23 History (Vascepa) insulin lispro 100 unit/mL 0 sliding scale dose SQ ACHS 12/18/22 12/17/23 History subcutaneous pen Diabetes multivitamin 1 tab PO DAILY 12/18/22 12/17/23 History nitroglycerin 0.4 mg sublingual 0.4 mg sublingual Q5MINP PRN Chest 12/18/22 12/17/23 History tablet Pain omeprazole 40 mg capsule,delayed 40 mg PO HS 12/18/22 12/17/23 History release acetaminophen 500 mg tablet 500 mg PO AC 12/19/22 12/17/23 History albuterol sulfate 2.5 mg/3 mL 2.5 mg inhalation Q4HP PRN 12/19/22 12/17/23 History (0.083 %) solution for nebulization shortness of air or wheezing clopidogrel 75 mg tablet 75 mg PO DAILY 03/18/23 12/17/23 History empagliflozin 10 mg tablet 25 mg PO DAILY 04/19/23 12/17/23 History (Jardiance) insulin glargine 100 unit/mL (3 14 unit SQ HS Diabetes 04/19/23 12/17/23 History mL) subcutaneous pen (Lantus Solostar U-100 Insulin) levothyroxine 50 mcg tablet 50 mcg PO DAILYDM 04/19/23 12/17/23 History ondansetron 4 mg disintegrating 4 mg PO Q8HP PRN Nausea And 04/19/23 12/17/23 History tablet Vomiting bumetanide 2 mg tablet 2 mg PO BID #60 tabs 04/30/23 12/17/23 Rx buspirone 10 mg tablet 10 mg PO TID 07/04/23 12/17/23 History fluticasone fur. 100 mcg-umeclid 1 inh inhalation DAILY 08/13/23 12/17/23 History 62.5 mcg-vilant 25 mcg inhalat.powder (Trelegy Ellipta) paroxetine HCl 40 mg tablet (Paxil) 40 mg PO HS 08/13/23 12/17/23 History rosuvastatin 10 mg tablet 10 mg PO HS 08/13/23 12/17/23 History spironolactone 50 mg tablet 50 mg PO DAILY 08/13/23 12/17/23 History polyethylene glycol 3350 17 17 g PO DAILY 08/14/23 12/17/23 History gram/dose oral powder pen needle,diabetic dual safty 30 #100 ea 09/17/23 12/17/23 History gauge x 3/16 (BD AutoShield Duo Pen Needle) pregabalin 75 mg capsule 75 mg PO TID 09/17/23 12/17/23 History diclofenac sodium 1 % topical gel 1 ea topical Q6 PRN Pain 12/17/23 12/17/23 History loratadine 10 mg tablet 10 mg PO DAILY 12/17/23 12/17/23 History trazodone 50 mg tablet 50 mg PO HS 12/17/23 12/17/23 History New Prescriptions to Start Prescriptions: Allergies Allergy/AdvReac Type Severity Reaction Status Date / Time cephalexin Allergy Verified 11/13/23 15:16 Penicillins Allergy Verified 11/13/23 15:16 Exam Data for Last 24 hours Vital signs and Labs for Last 24 Hours: Temp Pulse Resp BP Pulse Ox O2 Del Method O2 Flow Rate 98.0 F 68 21 95/44 L 93 L BiPAP 5 12/17/23 07:36 12/17/23 09:00 12/17/23 09:00 12/17/23 09:00 12/17/23 09:00 12/17/23 09:00 12/17/23 08:02 FiO2 40 12/17/23 08:25 Laboratory Results - last 24 hr 12/17/23 07:40: WBC 10.8, RBC 5.83 H, Hgb 15.7, Hct 49.8 H, MCV 85.4, MCH 26.9 L , MCHC 31.6 L, RDW 18.7 H, Plt Count 269, MPV 9.3, Neut % (Auto) 76.9, Lymph % (Auto) 10.4, [place] % (Auto) 6.6, Eos % (Auto) 4.3, Baso % (Auto) 1.8, Neut # (Auto) 8.3 H, Lymph # (Auto) 1.1, [place] # (Auto) 0.7, Eos # (Auto) 0.5 H, Baso # (Auto) 0.2, Sodium 135 L, Potassium 4.3, Chloride 88 L, Carbon Dioxide 38 H, Anion Gap 13.3, BUN 28 H, Creatinine 1.30 H, Estimated Creat Clear 62, Estimated GFR 40 L, Est GFR ( Amer) 48 L, Glucose 235 H, Calcium 8.7, Total Bilirubin 0.5, AST 23, ALT 19, Alkaline Phosphatase 81, Troponin I 0.01, NT-Pro-B Natriuret Pep 1870 H, Total Protein 7.3, Albumin 3.7, Globulin 3.6 H, Albumin/Globulin Ratio 1.0 L 12/17/23 07:53: SARS-CoV-2 (PCR) Not detected, Influenza A Untype (PCR) Not detected, Influenza Type B (PCR) Not detected 12/17/23 08:00: VBG pH 7.29 L, VBG pCO2 84.7 H, VBG pO2 47.1 H, VBG HCO3 40.2 H, VBG Total CO2 42.8 H, VBG O2 Saturation 75.7 H, VBG Base Excess 13.7 H, VBG Lactic Acid 2.9 H I & O for Last 24 hours: Intake & Output 12/14/23 12/15/23 12/16/23 12/17/23 23:59 23:59 23:59 23:59 Weight 102.965 kg Constitutional Constitutional: mild distress, morbidly obese, chronically ill appearing and cooperative *Routine HEENT Exam Head: Present normocephalic Eye: Present EOMI ENT: Present mucous membranes moist *Routine Neck Exam Neck: Present supple and trachea midline; Absent JVD or lymphadenopathy *Routine Respiratory Exam Respiratory: Present prolonged expiratory phase, distant breath sounds, diminished air movement, normal respiratory effort and symmetric chest movement; Absent rhonchi or crackles *Routine Cardiovascular Exam Cardiovascular: Present bradycardia *Routine Abdominal Exam Abdominal: Present soft and normoactive bowel sounds; Absent tenderness *Routine Rectal Exam Rectal:: deferred *Routine Genitalia Exam Genitalia:: deferred *Routine Extremities Exam Extremities: Present edema (3+ to knees) and full ROM; Absent calf tenderness *Routine Skin Exam Skin: Present warm and wounds; Absent rash Comments: Chronic stasis changes of lower extremity *Routine Neurological Exam Neurological: Present alert, oriented X3, moving all extremities, hearing grossly intact and normal speech Comments: More oriented after arriving to the floor. Groggy but is oriented x 3 Routine Psychiatric Exam Psychiatric: Present cooperative Assessment and Plan *Assessment and plan (1) Acute hypercapnic respiratory failure: Status: Acute Category: Medical Code(s): J96.02 - Acute respiratory failure with hypercapnia (2) Metabolic encephalopathy: Status: Acute Category: Medical Code(s): G93.41 - Metabolic encephalopathy (3) CO2 narcosis: Status: Resolved Category: Medical Code(s): R06.89 - Other abnormalities of breathing (4) Bradycardia: Status: Acute Category: Medical Code(s): R00.1 - Bradycardia, unspecified (5) Acute on chronic respiratory failure with hypoxemia: Status: Acute Category: Medical Code(s): J96.21 - Acute and chronic respiratory failure with hypoxia (6) NARCISO (obstructive sleep apnea): Problem Comment: Active patient at [facility] Status: Chronic Category: Medical Code(s): G47.33 - Obstructive sleep apnea (adult) (pediatric) (7) Atrial fibrillation: Status: Acute Qualifiers: Atrial fibrillation type: unspecified chronic Qualified Code(s): I48.20 - Chronic atrial fibrillation, unspecified Category: Medical Code(s): I48.91 - Unspecified atrial fibrillation (8) Diabetes mellitus, type 2: Status: Acute Qualifiers: Diabetes mellitus complication status: with other specified complication 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 insulin use: with mcfp use Qualified Code(s): E11.69 - Type 2 diabetes mellitus with other specified complication; Z79.4 - halfway (current) use of insulin Category: Medical Code(s): E11.9 - Type 2 diabetes mellitus without complications (9) HTN (hypertension): Status: Acute Qualifiers: Hypertension type: primary hypertension Qualified Code(s): I10 - Essential (primary) hypertension Category: Medical Code(s): I10 - Essential (primary) hypertension (10) HLD (hyperlipidemia): Status: Acute Qualifiers: Hyperlipidemia type: mixed hyperlipidemia Qualified Code(s): E78.2 - Mixed hyperlipidemia Category: Medical Code(s): E78.5 - Hyperlipidemia, unspecified (11) Pulmonary hypertension: Status: Acute Category: Medical Code(s): I27.20 - Pulmonary hypertension, unspecified (12) Coronary artery disease: Status: Acute Qualifiers: Associated angina: with other forms of angina Coronary Disease- Associated Artery/Lesion type: [place] artery [place] vs. transplanted heart: [place] heart Qualified Code(s): I25.118 - Atherosclerotic heart disease of [place] coronary artery with other forms of angina pectoris Category: Medical Code(s): I25.10 - Atherosclerotic heart disease of [place] coronary artery without angina pectoris Plan 73-year-old female with complex past medical history, heart failure, respiratory failure, who presented with symptomatic bradycardia and hypotension. Also found to be in hypercapnic respiratory failure. Initiated on BiPAP and received calcium in the ER. Discussed case with ER physician, request admission for treatment of hypercapnic respiratory failure. I agreed to admit for further management. Initiated on BiPAP. Problems addressed as follows: Acute on chronic hypercapnic respiratory failure Chronic hypoxemic respiratory failure NARCISO CO2 narcosis/metabolic encephalopathy - Confused on admission. VBG with pH 7.27, pCO2 83. Labs with level of compensation, Bicarb 38, sodium 135, potassium 4.3, chloride 88. Kidney function appears at baseline with BUN 28, creatinine 1.3. BNP elevated at 1870 - Initiated on BiPAP. Having response. Pulmonology consulted to assist with care - Continue BiPAP with pressures of 16/8, rate of 20, 35% FiO2. --No indication for antibiotics. White cell count of 10.8 - Holding sedating meds including her home pregabalin and trazodone -Continue supplemental oxygen as needed, 35% while on BiPAP, 3 L while not on BiPAP. Goal sats greater 90% -Patient to wear BiPAP while napping or asleep. Okay to take it off for meals and 2 hours after. Bradycardia Atrial fibrillation CHF -Monitor on telemetry -Blood pressure normal. -Continue Eliquis stable the medical patient. -If develops A-fib, will initiate amiodarone -BNP elevated 1870, Bumex 2 mg IV twice daily for aggressive diuresis Polypharmacy Chronic pain -Patient on pregabalin and trazodone. May be sedating. Holding antihistamines. Holding trazodone. Anxiety: Continue BuSpar 10 mg 3 times a day, continue Paxil 40 mg nightly Diabetes: Continue sliding scale insulin with fingersticks ACHS, continue basal glargine at decreased dose of 10 units nightly. A1c pending. Last A1c 2 months ago elevated 8.6 Class II obesity complicates all aspects of care Full code Diabetic diet
--- NOTE | 2023-12-17 09:42 | PC.NURSE ---
[facility]IN[facility] NOTIFIED OF ADMISSION
--- NOTE | 2023-12-17 09:42 | PC.NURSE ---
NO BLOOD CULTURES ORDERED, SPOKE WITH DR MUHAMMAD, DOES NOT WANT BLOOD CULTURES
[2023-12-17] MEDS: AZITHROMYCIN 500 MG in 0.9 % SODIUM CHLORIDE 250 ML 250 MG IV (09:44)
[2023-12-17 09:55] LABS: Adenovirus,PCR Not Detected (NotDetected); Bordetella Pertussis Not Detected (NotDetected); Chlamydophila Pneumoniae, PCR Not Detected (NotDetected); Coronavirus 19, PCR Not Detected (NotDetected); Coronavirus 229E Not Detected (NotDetected); Coronavirus NL63 Not Detected (NotDetected); Coronavirus OC43 Not Detected (NotDetected); Coronovirus HKU1,PCR Not Detected (NotDetected); Human Metapneumovirus Not Detected (NotDetected); Influenza A, PCR Not Detected (NotDetected); Influenza AH1, 2009 Not Detected (NotDetected); Influenza AH1, PCR Not Detected (NotDetected); Influenza AH3,PCR Not Detected (NotDetected); Influenza B, PCR Not Detected (NotDetected); Mycoplasma Pneumoniae, PCR Not Detected (NotDetected); Parainfluenza 1, PCR Not Detected (NotDetected); Parainfluenza 2, PCR Not Detected (NotDetected); Parainfluenza 3, PCR Not Detected (NotDetected); Parainfluenza 4, PCR Not Detected (NotDetected); Respiratory Syncytial Virus Not Detected (NotDetected); Rhinovirus/Enterovirus Not Detected (NotDetected)
--- NOTE | 2023-12-17 10:31 | SW/DCPLANNER ---
Addendum entered by Elizabeth Ward 12/18/23 10:36: I have updated Lauryn w/ [facility] that patient will return today. Original Note: This patient currently resides at [facility] level of care. I will continue to follow up w/ Lauryn at [facility] until patient is medically stable for discharge. Discharge date is unknown at this time.
--- NOTE | 2023-12-17 10:43 | PC.NURSE ---
REPORT CALLED TO FELIPA RODRÍGUEZ
--- NOTE | 2023-12-17 10:50 | P.CONS_ITS ---
History of Present Illness History of present illness: Ms. Sena is a 73-year-old female longterm resident greater than 16-[id number]-rapy smoking history, COPD chronic precordial respiratory failure on BiPAP therapy at baseline presented to the ER with worsening respiratory chest hypercarbic respiratory failure needing noninvasive ventilator therapy and pulmonary was called for further evaluation and management. [facility] Disclaimer: The information contained in this section may have been updated after the patient was seen, as this information can be updated by other users. Medical History Accidental overdose Chronic respiratory failure with hypoxia and hypercapnia Lung nodule Rotator cuff arthropathy of right shoulder Acute anterior epistaxis Chronic hypoxemic respiratory failure Nodule of left lung Heart attack Encounter for screening for malignant neoplasm of lung COPD mixed type History of smoking 30 or more pack years Dyspnea Bilateral hearing loss due to cerumen impaction Encounter for removal of nasal packing CAD in ekl[place]na artery Cardiomyopathy Non-STEMI (non-ST elevated myocardial infarction) Right ventricular dilation Coronary artery disease HFrEF (heart failure with reduced ejection fraction) Pneumonia Diabetes mellitus, type 2 Iron deficiency anemia Pulmonary hypertension Osteoporosis Major depressive disorder Heart failure Depression Lymphedema Insomnia Class 2 obesity due to excess calories with body mass index (BMI) of 39.0 to 39.9 in adult Fibromyalgia Congestive heart failure Atrial fibrillation Anxiety HTN (hypertension) HLD (hyperlipidemia) COPD (chronic obstructive pulmonary disease) BMI 30.0-30.9,adult Osteoarthritis Callus of foot Paresthesia of both lower extremities Onychodystrophy Onychomycosis Diabetic foot Surgical History History of coronary artery stent placement History of bladder surgery H/O: hysterectomy H/O hernia repair Family History No significant family history Diabetes Hyperlipidemia Hypertension Social History (Updated 12/17/23 @ 13:31 by Adri Ramirez RN) Smoking Status: Smoker, status unknown tobacco type: cigarettes packs per day: 2 alcohol intake: never substance use type: denies use current occupational status: retired and disabled Travel in the last 8 weeks: None housing: longterm lives independently: No longterm: Yes caffeine: Yes Review of Systems Review of Systems Review of systems:: unable to obtain Review of systems (narrative): Patient not responding appropriately to verbal commands Pulmonology Exam Inpatient Vital signs and Labs for Last 24 Hours: Temp Pulse Resp BP Pulse Ox O2 Del Method O2 Flow Rate 98.0 F 68 20 94/48 L 95 BiPAP 5 12/17/23 07:36 12/17/23 09:00 12/17/23 09:30 12/17/23 09:30 12/17/23 09:30 12/17/23 09:00 12/17/23 08:02 FiO2 40 12/17/23 08:25 Laboratory Results - last 24 hr 12/17/23 07:40: WBC 10.8, RBC 5.83 H, Hgb 15.7, Hct 49.8 H, MCV 85.4, MCH 26.9 L , MCHC 31.6 L, RDW 18.7 H, Plt Count 269, MPV 9.3, Neut % (Auto) 76.9, Lymph % (Auto) 10.4, [place] % (Auto) 6.6, Eos % (Auto) 4.3, Baso % (Auto) 1.8, Neut # (Auto) 8.3 H, Lymph # (Auto) 1.1, [place] # (Auto) 0.7, Eos # (Auto) 0.5 H, Baso # (Auto) 0.2, Sodium 135 L, Potassium 4.3, Chloride 88 L, Carbon Dioxide 38 H, Anion Gap 13.3, BUN 28 H, Creatinine 1.30 H, Estimated Creat Clear 62, Estimated GFR 40 L, Est GFR ( Amer) 48 L, Glucose 235 H, Calcium 8.7, Total Bilirubin 0.5, AST 23, ALT 19, Alkaline Phosphatase 81, Troponin I 0.01, N T-Pro-B Natriuret Pep 1870 H, Total Protein 7.3, Albumin 3.7, Globulin 3.6 H, A lbumin/Globulin Ratio 1.0 L 12/17/23 07:53: SARS-CoV-2 (PCR) Not detected, Influenza A Untype (PCR) Not detected, Influenza Type B (PCR) Not detected 12/17/23 08:00: VBG pH 7.29 L, VBG pCO2 84.7 H, VBG pO2 47.1 H, VBG HCO3 40.2 H, VBG Total CO2 42.8 H, VBG O2 Saturation 75.7 H, VBG Base Excess 13.7 H, VBG Lactic Acid 2.9 H I & O for Labs for Last 24 Hours: Intake & Output 12/14/23 12/15/23 12/16/23 12/17/23 23:59 23:59 23:59 23:59 Weight 227 lb Constitutional: Present severe distress Head: Present normocephalic and atraumatic ENT: Present normal exam, normal oropharynx and mucous membranes moist Neck: Present normal inspection and full ROM Respiratory: Present prolonged expiratory phase, respiratory distress and wheezes; Absent able to speak in complete sentences Cardiac: Present S1/S2, Tachycardia and radial pulses present GI: Present soft and distention; Absent tenderness or guarding Rectal (female): Present deferred (female): Present deferred Skin: Present intact; Absent cyanosis or jaundice Neuro: Absent alert, awake or oriented x 3 Extremities: Present normal inspection; Absent clubbing or cyanosis Psychiatric: Present normal affect and cooperative Meds Home Medications and Allergies Home Medications ?Medication ?Instructions ?Recorded ?Confirmed ?Type ergocalciferol (vitamin D2) 1,250 1,250 mcg PO DIRECTED 08/12/20 12/17/23 History mcg (50,000 unit) capsule albuterol sulfate 90 mcg/actuation 2 puff inhalation Q4HP PRN 12/18/22 12/17/23 History aerosol inhaler Shortness Of Breath Or Wheezing apixaban 5 mg tablet (Eliquis) 5 mg PO BID 12/18/22 12/17/23 History docusate sodium 100 mg tablet 100 mg PO BID 12/18/22 12/17/23 History ferrous sulfate 324 mg (65 mg 324 mg PO DAILY 12/18/22 12/17/23 History iron) tablet,delayed release icosapent ethyl 1 gram capsule 1 g PO BID 12/18/22 12/17/23 History (Vascepa) insulin lispro 100 unit/mL 0 sliding scale dose SQ ACHS 12/18/22 12/17/23 History subcutaneous pen Diabetes multivitamin 1 tab PO DAILY 12/18/22 12/17/23 History nitroglycerin 0.4 mg sublingual 0.4 mg sublingual Q5MINP PRN Chest 12/18/22 12/17/23 History tablet Pain omeprazole 40 mg capsule,delayed 40 mg PO HS 12/18/22 12/17/23 History release acetaminophen 500 mg tablet 500 mg PO AC 12/19/22 12/17/23 History albuterol sulfate 2.5 mg/3 mL 2.5 mg inhalation Q4HP PRN 12/19/22 12/17/23 History (0.083 %) solution for nebulization shortness of air or wheezing gabapentin 300 mg capsule 300 mg PO BID 12/19/22 11/13/23 History hydrocodone 5 mg-acetaminophen 325 1 tab PO Q12HP PRN Moderate Pain 01/12/23 11/13/23 History mg tablet (Scale Score 5-6) clopidogrel 75 mg tablet 75 mg PO DAILY 03/18/23 12/17/23 History clobetasol 0.05 % shampoo 1 applic topical HS 04/19/23 11/13/23 History empagliflozin 10 mg tablet 25 mg PO DAILY 04/19/23 12/17/23 History (Jardiance) insulin glargine 100 unit/mL (3 14 unit SQ HS Diabetes 04/19/23 12/17/23 History mL) subcutaneous pen (Lantus Solostar U-100 Insulin) levothyroxine 50 mcg tablet 50 mcg PO DAILYDM 04/19/23 12/17/23 History miconazole nitrate 2 % topical 1 applic topical BID 04/19/23 11/13/23 History cream ondansetron 4 mg disintegrating 4 mg PO Q6HP PRN Nausea And 04/19/23 12/17/23 History tablet Vomiting bumetanide 2 mg tablet 2 mg PO BID #60 tabs 04/30/23 12/17/23 Rx buspirone 10 mg tablet 10 mg PO TID 07/04/23 12/17/23 History cetirizine 10 mg tablet 10 mg PO DAILY 08/07/23 11/13/23 History fluticasone fur. 100 mcg-umeclid 1 inh inhalation DAILY 08/13/23 12/17/23 History 62.5 mcg-vilant 25 mcg inhalat.powder (Trelegy Ellipta) paroxetine HCl 40 mg tablet (Paxil) 40 mg PO HS 08/13/23 12/17/23 History rosuvastatin 10 mg tablet 10 mg PO HS 08/13/23 12/17/23 History spironolactone 50 mg tablet 50 mg PO DAILY 08/13/23 12/17/23 History polyethylene glycol 3350 17 17 g PO DAILY 08/14/23 12/17/23 History gram/dose oral powder insulin glargine-yfgn 100 unit/mL unit SQ 09/17/23 11/13/23 History (3 mL) subcutaneous pen pen needle,diabetic dual safty 30 #100 ea 09/17/23 11/13/23 History gauge x 3/16 (BD AutoShield Duo Pen Needle) pregabalin 75 mg capsule 75 mg PO TID 09/17/23 12/17/23 History ammonium lactate 12 % lotion topical 09/26/23 11/13/23 History doxycycline hyclate 100 mg tablet 100 mg PO BID 09/26/23 11/13/23 History doxycycline hyclate 100 mg capsule 100 mg PO BID 5 days #10 caps 11/13/23 11/13/23 Rx prednisone 20 mg tablet 40 mg (2 x 20 mg) PO DAILY 5 days 11/13/23 11/13/23 Rx #10 tabs diclofenac sodium 1 % topical gel 1 ea topical Q6 PRN Pain 12/17/23 12/17/23 History docusate sodium 100 mg tablet (DOK) 100 mg PO BID 12/17/23 12/17/23 History loratadine 10 mg tablet 10 mg PO DAILY 12/17/23 12/17/23 History trazodone 50 mg tablet 50 mg PO HS 12/17/23 12/17/23 History New Prescriptions to Start Prescriptions: Allergies Allergy/AdvReac Type Severity Reaction Status Date / Time cephalexin Allergy Verified 11/13/23 15:16 Penicillins Allergy Verified 11/13/23 15:16 Results Laboratory Findings 12/17/23 07:40 12/17/23 07:40 Abnormal lab findings: Abnormal Labs 12/17/23 12/17/23 07:40 08:00 RBC 5.83 H Hct 49.8 H MCH 26.9 L MCHC 31.6 L RDW 18.7 H Neut # (Auto) 8.3 H Eos # (Auto) 0.5 H VBG pH 7.29 L VBG pCO2 84.7 H VBG pO2 47.1 H VBG HCO3 40.2 H VBG Total CO2 42.8 H VBG O2 Saturation 75.7 H VBG Base Excess 13.7 H VBG Lactic Acid 2.9 H Sodium 135 L Chloride 88 L Carbon Dioxide 38 H BUN 28 H Creatinine 1.30 H Estimated GFR 40 L Est GFR ( Amer) 48 L Glucose 235 H NT-Pro-B Natriuret Pep 1870 H Globulin 3.6 H Albumin/Globulin Ratio 1.0 L Assessment and Plan *Assessment and plan (1) Acute on chronic respiratory failure with hypoxia and hypercapnia: Status: Acute Category: Medical Code(s): J96.21 - Acute and chronic respiratory failure with hypoxia; J96.22 - Acute and chronic respiratory failure with hypercapnia Plan Ms. Sena is a 73-year-old female longterm resident greater than 17-[id number]-eqqp smoking history, COPD chronic precordial respiratory failure on BiPAP therapy at baseline presented to the ER with worsening respiratory chest hypercarbic respiratory failure needing noninvasive ventilator therapy and pulmonary was called for further evaluation and management. Patient last evaluated in the clinic 11/13/2023 on PEEP of 10 and PS of 14. Afebrile. Hemodynamically stable. No evidence of significant leukocytosis.Blood gas upon admission showed hypercarbic respiratory failure with a pH of 7.29 and pCO2 of 84.7. TESSIE on CKD. Chest x-ray upon admission bilateral cystic changes chronic stable from prior. No acute dense consolidative/airspace disease noted. Subsequent ABGs showed minimal improvement in her current 09/22 and a rate of 22 and FiO2 of 50% Plan: Continue BiPAP therapy at 09/22, rate of 22 on FiO2 50%. F/U VBG DuoNebs every 4 hours along with Pulmicort every 12 scheduled Methylprednisone 40 mg IV daily Azithromycin 500 mg daily # Thank you for involving pulmonary in this patient care. Will continue to follow.
[2023-12-17 11:22] LABS: Troponin I 0.02 ng/ml (0.00-0.034)
[2023-12-17 11:39] LABS: VBG Base Excess 10.9 mmol/L (-2.4-2.3); VBG HCO3 36.9 mmol/L (23-30); VBG Oxygen Saturation 77.2 % (50-70); VBG PH 7.33 mmol/L (7.31-7.41); VBG PO2 47.3 mmol/L (28-40); VBG Total CO2 39.1 mmol/L (23-27)
[2023-12-17 11:43] LABS: Lactate Venous 2.4 mmol/L (0.4-2.0)
[2023-12-17 12:04] LABS: Reflex Lactic Add Lactic Reflex
--- NOTE | 2023-12-17 12:11 | PC.NURSE ---
RESP CARE NOTE: Bipap settings adjusted per Dr Paredes verbal order of BIPAP 18/8, Rate 22, and FIO2 of 50%. Will continue to monitor patient continuously.
[2023-12-17 13:18] LABS: Troponin I 0.01 ng/ml (0.00-0.034)
[2023-12-17] MEDS: METHYLPREDNISOLONE SOD SUCC 40MG VIAL 40 MG IV (14:42)
--- NOTE | 2023-12-17 15:29 | HMH.PHAINT1 ---
Pharmacy Intervention Comments: HOME MEDS VERIFIED VIA SNF LIST
--- NOTE | 2023-12-17 16:34 | PC.NURSE ---
Pt is A&O x4. Has been on Bipap since arrival to floor and tolerated it well. VBG obtained. Pt placed on 3L NC at this time. No complaints. Call light is within reach.
[2023-12-17 16:45] LABS: VBG Base Excess 5.3 mmol/L (-2.4-2.3); VBG Oxygen Saturation 97.1 % (50-70); VBG PCO2 48.5 mmol/L (35-51); VBG PH 7.41 mmol/L (7.31-7.41); VBG PO2 90.9 mmol/L (28-40); VBG Total CO2 31.5 mmol/L (23-27)
[2023-12-17 17:58] LABS: POC Glucose,Bedside 259 (70-110)
[2023-12-17 17:58] LABS: POC Glucose,Bedside 258 (70-110)
[2023-12-17] MEDS: BUDESONIDE 0.5MG/2ML NEB 0.5 MG IH (19:06)
[2023-12-17] MEDS: BUMETANIDE 1MG/4ML VIAL 2 MG IV (19:10)
[2023-12-17] MEDS: DOCUSATE SODIUM 100 MG 100 EACH PO (20:47)
[2023-12-17] MEDS: BUSPIRONE HCL 10 MG TABLET PO (20:47)
[2023-12-17] MEDS: APIXABAN 5MG TABLET 5 MG PO (20:47)
[2023-12-17] MEDS: INSULIN GLARGINE 100 UNITS/ML 3ML FLEXPEN 10 UNIT SUBCUT (20:52)
[2023-12-17] MEDS: humaLOG 100 UNITS/ML 10ML VIAL (SSI) SUBCUT (20:53)
[2023-12-17] MEDS: PREGABALIN 25MG CAPSULE 75 MG PO (21:09)
[2023-12-17 21:25] LABS: POC Glucose,Bedside 307 (70-110)
[2023-12-18] VITALS (13 sets, daily range): BP systolic 112–146; BP diastolic 60–88; PULSE 54–70; RESP 8–24; TEMP 36.6–36.9; O2SAT 91–98; BMI 37.5
[2023-12-18] MEDS: IPRATROPIUM/ALBUTEROL 3 ML NEB IH ×3 (02:28→09:34)
[2023-12-18] MEDS: BUDESONIDE 0.5MG/2ML NEB 0.5 MG IH (05:50)
[2023-12-18] MEDS: LEVOTHYROXINE 50MCG (0.05MG) TAB 50 MCG PO (06:28)
[2023-12-18] MEDS: humaLOG 100 UNITS/ML 10ML VIAL (SSI) SUBCUT ×2 (06:29→12:03)
[2023-12-18] MEDS: ACETAMINOPHEN 325MG TAB 650 MG PO ×2 (06:34→10:28)
[2023-12-18 06:46] LABS: Basophils # 0.1 K/mm3 (0-0.2); Basophils % 0.6 % (0.1-2.0); Eosinophils % 0.1 % (0.1-12.0); Hematocrit 45.2 % (37.0-47.0); Hemoglobin 14.2 g/dL (12.2-16.2); Lymphocytes # 0.9 K/mm3 (0.7-4.5); Lymphocytes % 11.6 % (10-50); Mean Corpuscular HGB Conc 31.5 g/dL (31.8-35.4); Mean Corpuscular Hemoglobin 26.4 pg (27.0-31.2); Mean Corpuscular Volume 83.8 fl (81-99); Mean Platelet Volume 9.5 fl (7.4-10.4); Monocytes # 0.6 K/mm3 (0.1-1.0); Monocytes % 7.3 % (1.7-9.3); Neutrophils # 6.4 K/mm3 (1.8-7.8); Neutrophils % 80.4 % (37.0-80.0); Platelet Count 248 K/mm3 (142-424); Red Cell Distribution Width 18.4 % (11.5-17.5); White Blood Count 7.9 K/mm3 (4.8-10.8)
[2023-12-18 06:54] LABS: POC Glucose,Bedside 234 (70-110)
[2023-12-18 07:19] LABS: Alanine Aminotransferase 17 U/L (12-78); Albumin Level 3.5 g/dl (3.5-5.0); Albumin/Globulin Ratio 1.1 (1.1-1.8); Alkaline Phosphatase 73 U/L (38-126); Anion Gap 10.7 mEq/L (5-15); Aspartate Amino Transferase 52 U/L (14-36); Bilirubin,Total 0.6 mg/dl (0.2-1.3); Blood Urea Nitrogen 31 mg/dl (7-17); Calcium 8.6 mg/dl (8.4-10.2); Carbon Dioxide 37 mmol/L (22.0-30.0); Chloride 89 mmol/L (98-107); Creatinine Clearance Estimated 78 mL/min (50-200); Estimated Glomerular Filt Rate 54 ml/min (>60); GFR (African American) 66 ML/MIN (>60); Globulin 3.1 g/dL (1.3-3.2); Glucose 216 mg/dl (74-100); Magnesium 2.5 mg/dl (1.6-2.3); Potassium 4.7 mmoL/L (3.5-5.1); Sodium 132 mmol/L (136-145); Total Protein,Serum 6.6 g/dl (6.3-8.2)
[2023-12-18 09:10] LABS: Hemoglobin A1C 8.3 % (4.0-6.0)
[2023-12-18] MEDS: AZITHROMYCIN 500 MG in 0.9 % SODIUM CHLORIDE 250 ML 250 MG IV (09:15)
[2023-12-18] MEDS: DOCUSATE SODIUM 100 MG CAPSULE PO (09:16)
[2023-12-18] MEDS: BUSPIRONE HCL 10 MG TABLET PO (09:16)
[2023-12-18] MEDS: APIXABAN 5MG TABLET 5 MG PO (09:16)
[2023-12-18] MEDS: SPIRONOLACTONE 25MG TABLET 50 MG PO (09:17)
[2023-12-18] MEDS: BUMETANIDE 1MG/4ML VIAL 2 MG IV (09:17)
[2023-12-18] MEDS: CLOPIDOGREL 75MG TAB 75 MG PO (09:18)
[2023-12-18] MEDS: EMPAGLIFLOZIN 10MG TABLET 25 MG PO (09:18)
[2023-12-18] MEDS: PREGABALIN 25MG CAPSULE 75 MG PO (09:28)
[2023-12-18] MEDS: METHYLPREDNISOLONE SOD SUCC 40MG VIAL 40 MG IV (09:28)
--- NOTE | 2023-12-18 09:34 | P.PN_ITS ---
Subjective *Date: 12/18/23 *Time: 10:33 Interval history: No acute respiratory events overnight. Patient admits improvement in her respiratory status. Denies any worsening cough or productive phlegm. Pulmonology Exam Inpatient Vital signs and Labs for Last 24 Hours: Temp Pulse Resp BP Pulse Ox O2 Del Method O2 Flow Rate 97.9 F 63 22 132/68 91 L Nasal Cannula 3 12/18/23 08:00 12/18/23 08:00 12/18/23 08:00 12/18/23 08:00 12/18/23 08:00 12/18/23 08:00 12/18/23 08:00 FiO2 50 12/18/23 04:00 Laboratory Results - last 24 hr 12/17/23 09:51: Chlamy pneumoniae PCR Not detected, Adenovirus (PCR) Not detected, B. pertussis DNA (PCR) Not detected, Coronavirus OC43 (PCR) Not detected, Coronavirus HKU1 (PCR) Not detected, Coronavirus 229E (PCR) Not detected, SARS-CoV-2 (PCR) Not detected, Coronavirus NL63 (PCR) Not detected, Human Metapneumovir PCR Not detected, Influenza A (H1) PCR Not detected, Influ A (H1N1/09) PCR Not detected, Influenza A (H3) PCR Not detected, Influenza Type A (PCR) Not detected, Influenza Type B (PCR) Not detected, M. pneumoniae (PCR) Not detected, Parainfluenza 1 (PCR) Not detected, Parainfluenza 2 (PCR) Not detected, Parainfluenza 3 (PCR) Not detected, Parainfluenza 4 (PCR) Not detected, RSV (PCR) Not detected, Entero/Rhino (PCR) Not detected 12/17/23 10:47: Troponin I 0.02 12/17/23 11:10: VBG pH 7.33, VBG pCO2 72.0 H, VBG pO2 47.3 H, VBG HCO3 36.9 H, VBG Total CO2 39.1 H, VBG O2 Saturation 77.2 H, VBG Base Excess 10.9 H, VBG Lactic Acid 2.4 H 12/17/23 12:37: POC Glucose 259 H 12/17/23 12:45: Lactate 1.0, Troponin I 0.01 12/17/23 14:04: VBG pH 7.41, VBG pCO2 48.5, VBG pO2 90.9 H, VBG HCO3 30.0, VBG Total CO2 31.5 H, VBG O2 Saturation 97.1 H, VBG Base Excess 5.3 H, VBG Lactic Acid 2.0 12/17/23 16:31: POC Glucose 258 H 12/17/23 20:46: POC Glucose 307 H* 12/18/23 05:31: WBC 7.9 D, RBC 5.40, Hgb 14.2, Hct 45.2, MCV 83.8, MCH 26.4 L, MCHC 31.5 L, RDW 18.4 H, Plt Count 248, MPV 9.5, Neut % (Auto) 80.4 H, Lymph % (Auto) 11.6, [place] % (Auto) 7.3, Eos % (Auto) 0.1, Baso % (Auto) 0.6, Neut # (Auto) 6.4, Lymph # (Auto) 0.9, [place] # (Auto) 0.6, Eos # (Auto) 0.0, Baso # (Auto) 0.1, Sodium 132 L, Potassium 4.7, Chloride 89 L, Carbon Dioxide 37 H, Anion Gap 10.7, BUN 31 H, Creatinine 1.00 D, Estimated Creat Clear 78, Estimated GFR 54 L, Est GFR ( Amer) 66 D, Glucose 216 H, Hemoglobin A1c 8.3 H, Calcium 8.6, Magnesium 2.5 H, Total Bilirubin 0.6, AST 52 H D, ALT 17, Alkaline Phosphatase 73, Total Protein 6.6, Albumin 3.5, Globulin 3.1, Albumin/Globulin Ratio 1.1 12/18/23 06:26: POC Glucose 234 H Temp Pulse Resp BP Pulse Ox O2 Del Method O2 Flow Rate 98.0 F 68 20 94/48 L 95 BiPAP 5 12/17/23 07:36 12/17/23 09:00 12/17/23 09:30 12/17/23 09:30 12/17/23 09:30 12/17/23 09:00 12/17/23 08:02 FiO2 40 12/17/23 08:25 Laboratory Results - last 24 hr 12/17/23 07:40: WBC 10.8, RBC 5.83 H, Hgb 15.7, Hct 49.8 H, MCV 85.4, MCH 26.9 L , MCHC 31.6 L, RDW 18.7 H, Plt Count 269, MPV 9.3, Neut % (Auto) 76.9, Lymph % (Auto) 10.4, [place] % (Auto) 6.6, Eos % (Auto) 4.3, Baso % (Auto) 1.8, Neut # (Auto) 8.3 H, Lymph # (Auto) 1.1, [place] # (Auto) 0.7, Eos # (Auto) 0.5 H, Baso # (Auto) 0.2, Sodium 135 L, Potassium 4.3, Chloride 88 L, Carbon Dioxide 38 H, Anion Gap 13.3, BUN 28 H, Creatinine 1.30 H, Estimated Creat Clear 62, Estimated GFR 40 L, Est GFR ( Amer) 48 L, Glucose 235 H, Calcium 8.7, Total Bilirubin 0.5, AST 23, ALT 19, Alkaline Phosphatase 81, Troponin I 0.01, NT-Pro-B Natriuret Pep 1870 H, Total Protein 7.3, Albumin 3.7, Globulin 3.6 H, Albumin/Globulin Ratio 1.0 L 12/17/23 07:53: SARS-CoV-2 (PCR) Not detected, Influenza A Untype (PCR) Not detected, Influenza Type B (PCR) Not detected 12/17/23 08:00: VBG pH 7.29 L, VBG pCO2 84.7 H, VBG pO2 47.1 H, VBG HCO3 40.2 H, VBG Total CO2 42.8 H, VBG O2 Saturation 75.7 H, VBG Base Excess 13.7 H, VBG Lactic Acid 2.9 H I & O for Labs for Last 24 Hours: Intake & Output 12/15/23 12/16/23 12/17/23 12/18/23 23:59 23:59 23:59 23:59 Intake Total 540 / 1040 770 / 770 Output Total 1550 / 1550 600 / 600 Balance -1010 / -510 170 / 170 Weight 220 lb 3 oz 220 lb 2.987 oz Intake & Output 12/14/23 12/15/23 12/16/23 12/17/23 23:59 23:59 23:59 23:59 Weight 227 lb Constitutional: Present severe distress Head: Present normocephalic and atraumatic ENT: Present normal exam, normal oropharynx and mucous membranes moist Neck: Present normal inspection and full ROM Respiratory: Present prolonged expiratory phase, respiratory distress and able to speak in complete sentences; Absent wheezes Cardiac: Present S1/S2, Tachycardia and radial pulses present GI: Present soft and distention; Absent tenderness or guarding Rectal (female): Present deferred (female): Present deferred Skin: Present intact; Absent cyanosis or jaundice Neuro: Present alert, awake and oriented x 3 Extremities: Present normal inspection; Absent clubbing or cyanosis Psychiatric: Present normal affect and cooperative Assessment and Plan *Assessment and plan (1) Acute on chronic respiratory failure with hypoxia and hypercapnia: Status: Acute Category: Medical Code(s): J96.21 - Acute and chronic respiratory failure with hypoxia; J96.22 - Acute and chronic respiratory failure with hypercapnia Plan Ms. Sena is a 73-year-old female group home resident greater than 47-[id number] smoking history, COPD chronic precordial respiratory failure on BiPAP therapy at baseline presented to the ER with worsening respiratory chest hypercarbic respiratory failure needing noninvasive ventilator therapy and pulmonary was called for further evaluation and management. Patient last evaluated in the clinic 11/13/2023 on PEEP of 10 and PS of 14. Afebrile. Hemodynamically stable. No evidence of significant leukocytosis.Blood gas upon admission showed hypercarbic respiratory failure with a pH of 7.29 and pCO2 of 84.7. TESSIE on CKD. Chest x-ray upon admission bilateral cystic changes chronic stable from prior. No acute dense consolidative/airspace disease noted. Subsequent ABGs showed minimal improvement in her current 09/22 and a rate of 22 and FiO2 of 50% Interval update: Subsequent blood gas from yesterday showed improving hypercarbic respiratory failure. Patient awake alert and oriented x 3. Plan: Trelegy 100 inhaler along with DuoNebs 4 times daily as needed Wean steroids to prednisone 40 mg daily x 5 days Continue azithromycin 500 mg daily to complete a total of 3-day course Can be discharged home on nightly BiPAP therapy at PEEP of 10 PS of 14 and a maximum pressure of 24 # Thank you for involving pulmonary in this patient care. Will follow the patient in pulmonary clinic 1 to 2 weeks post discharge
[2023-12-18 11:25] LABS: POC Glucose,Bedside 233 (70-110)
--- NOTE | 2023-12-18 11:30 | PC.NURSE ---
0930 patient called out and stated her arm was very painful at the IV site. IV had infiltrated after antibiotic administration. Site swollen and IV taken out. Pharmacy called and stated that warm compress to site was ok and no other action needed. MD aware. Ordered to give tylenol early for pain. Site reassessed at 1000, still swollen. Site painful per patient. MD aware of persistent pain.
--- NOTE | 2023-12-18 11:46 | P.DS_ITS ---
General Admission date:: 12/17/23 HPI HPI HPI: Ms. Sena is a 73-year-old female well-known to our facility with history of hypertension, hyperlipidemia, COPD on 3 L, A-fib on Eliquis, CHF, sleep apnea necessitating BiPAP nightly. She lives at a long-term care facility. Presented to the ER via EMS due to lethargy and concern for confusion. Found to have elevated CO2. Appears patient is not wearing her BiPAP at night and has deve loped confusion due to hypercarbia. Blood gas consistent with hypercapnic respiratory failure. Patient somnolent in the ER. Given her encephalopathy and severe hypercapnia, ER request admission for further management. Patient denies any fever, chest pain, nausea or vomiting. Will wake to sternal rub on the floor and answer questions but then dozes back off. Remains bradycardic, noted last visit. Blood pressure normal. Slight improvement after wearing BiPAP for a few hours. Appears somnolent Hospital Course Hospital Course Hospital Course: Rosalina Sena 73-year-old female with complex past medical history, heart failure, respiratory failure, who presented with symptomatic bradycardia and hypotension. Also found to be in hypercapnic respiratory failure. Initiated on BiPAP and received calcium in the ER. Discussed case with ER physician, request admission for treatment of hypercapnic respiratory failure. I agreed to admit for further management. Initiated on BiPAP. Problems addressed as follows: Acute on chronic hypercapnic respiratory failure Chronic hypoxemic respiratory failure Obstructive sleep apnea CO2 narcosis/metabolic encephalopathy - Confused on admission. VBG with pH 7.27, pCO2 83. - Improved with BiPAP, DuoNeb and Pulmicort breathing treatments, steroids, azithromycin. ? Pulmonology consulted, recommended steroid course for 5 days, azithromycin for 3 days - Continue BiPAP nightly therapy at PEEP of 10, pressure support of 14 and a maximum pressure o BiPAP pressure support f 24. - Discharged with 3 more days of prednisone 40 mg, 1 more day of azithromycin 500 mg. Atrial fibrillation CHF ? Rate controlled. ? Continue Eliquis 5 mg twice daily. ? Continue Bumex 2 mg twice daily, Jardiance 25 mg, spironolactone 50 mg. Chronic pain -Continue pregabalin. Anxiety - Continue BuSpar 10 mg 3 times a day, continue Paxil 40 mg nightly, trazodone. Diabetes - A1c 8.3. ? Continue home Lantus 14 units nightly, Jardiance. Venous insufficiency ? Lower extremity venous stasis dermatitis, chronic lower extremity edema. ? Recommend compression stockings, leg elevation. Exam Data for Last 24 hours Vital signs and Labs for Last 24 Hours: Temp Pulse Resp BP Pulse Ox O2 Del Method O2 Flow Rate 97.9 F 60 24 126/63 92 L Nasal Cannula 3 12/18/23 08:00 12/18/23 10:00 12/18/23 10:00 12/18/23 10:00 12/18/23 10:00 12/18/23 11:05 12/18/23 11:05 FiO2 50 12/18/23 04:00 Laboratory Results - last 24 hr 12/17/23 09:51: Chlamy pneumoniae PCR Not detected, Adenovirus (PCR) Not detected, B. pertussis DNA (PCR) Not detected, Coronavirus OC43 (PCR) Not detected, Coronavirus HKU1 (PCR) Not detected, Coronavirus 229E (PCR) Not detected, SARS-CoV-2 (PCR) Not detected, Coronavirus NL63 (PCR) Not detected, H uman Metapneumovir PCR Not detected, Influenza A (H1) PCR Not detected, Influ A (H1N1/09) PCR Not detected, Influenza A (H3) PCR Not detected, Influenza Type A (PCR) Not detected, Influenza Type B (PCR) Not detected, M. pneumoniae (PCR) Not detected, Parainfluenza 1 (PCR) Not detected, Parainfluenza 2 (PCR) Not detected, Parainfluenza 3 (PCR) Not detected, Parainfluenza 4 (PCR) Not detected, RSV (PCR) Not detected, Entero/Rhino (PCR) Not detected 12/17/23 12:37: POC Glucose 259 H 12/17/23 12:45: Lactate 1.0, Troponin I 0.01 12/17/23 14:04: VBG pH 7.41, VBG pCO2 48.5, VBG pO2 90.9 H, VBG HCO3 30.0, VBG Total CO2 31.5 H, VBG O2 Saturation 97.1 H, VBG Base Excess 5.3 H, VBG Lactic Acid 2.0 12/17/23 16:31: POC Glucose 258 H 12/17/23 20:46: POC Glucose 307 H* 12/18/23 05:31: WBC 7.9 D, RBC 5.40, Hgb 14.2, Hct 45.2, MCV 83.8, MCH 26.4 L, MCHC 31.5 L, RDW 18.4 H, Plt Count 248, MPV 9.5, Neut % (Auto) 80.4 H, Lymph % (Auto) 11.6, Humphreys % (Auto) 7.3, Eos % (Auto) 0.1, Baso % (Auto) 0.6, Neut # (Auto) 6.4, Lymph # (Auto) 0.9, Humphreys # (Auto) 0.6, Eos # (Auto) 0.0, Baso # (Auto) 0.1, Sodium 132 L, Potassium 4.7, Chloride 89 L, Carbon Dioxide 37 H, Anion Gap 10.7, BUN 31 H, Creatinine 1.00 D, Estimated Creat Clear 78, Estimated GFR 54 L, Est GFR ( Amer) 66 D, Glucose 216 H, Hemoglobin A1c 8.3 H, Calcium 8.6, Magnesium 2.5 H, Total Bilirubin 0.6, AST 52 H D, ALT 17, Alkaline Phosphatase 73, Total Protein 6.6, Albumin 3.5, Globulin 3.1, Albumin/Globulin Ratio 1.1 12/18/23 06:26: POC Glucose 234 H 12/18/23 11:18: POC Glucose 233 H I & O for Last 24 hours: Intake & Output 12/15/23 12/16/23 12/17/23 12/18/23 23:59 23:59 23:59 23:59 Intake Total 540 / 1040 770 / 770 Output Total 1550 / 1550 1200 / 1200 Balance -1010 / -510 -430 / -430 Weight 99.875 kg 99.875 kg Constitutional Constitutional: no acute distress *Routine HEENT Exam Head: Present normocephalic Eye: Present EOMI and PERRL ENT: Present mucous membranes moist *Routine Neck Exam Neck: Present supple; Absent lymphadenopathy *Routine Respiratory Exam Respiratory: Present CTA bilaterally *Routine Cardiovascular Exam Cardiovascular: Present RRR *Routine Abdominal Exam Abdominal: Present soft and normoactive bowel sounds; Absent tenderness *Routine Extremities Exam Extremities: Absent cyanosis, clubbing or edema *Routine Skin Exam Skin: Present warm; Absent rash *Routine Neurological Exam Neurological: Present alert and oriented X3 Results Data Completed and Pending Labs on day of discharge: Labs from last 24 hours 12/18/23 12/18/23 12/18/23 11:18 06:26 05:31 WBC 7.9 D RBC 5.40 Hgb 14.2 Hct 45.2 MCV 83.8 MCH 26.4 L MCHC 31.5 L RDW 18.4 H Plt Count 248 MPV 9.5 Neut % (Auto) 80.4 H Lymph % (Auto) 11.6 Humphreys % (Auto) 7.3 Eos % (Auto) 0.1 Baso % (Auto) 0.6 Neut # (Auto) 6.4 Lymph # (Auto) 0.9 Humphreys # (Auto) 0.6 Eos # (Auto) 0.0 Baso # (Auto) 0.1 VBG pH VBG pCO2 VBG pO2 VBG HCO3 VBG Total CO2 VBG O2 Saturation VBG Base Excess VBG Lactic Acid Sodium 132 L Potassium 4.7 Chloride 89 L Carbon Dioxide 37 H Anion Gap 10.7 BUN 31 H Creatinine 1.00 D Estimated Creat Clear 78 Estimated GFR 54 L Est GFR ( Amer) 66 D Glucose 216 H POC Glucose 233 H 234 H Hemoglobin A1c 8.3 H Lactate Calcium 8.6 Magnesium 2.5 H Total Bilirubin 0.6 AST 52 H D ALT 17 Alkaline Phosphatase 73 Troponin I Total Protein 6.6 Albumin 3.5 Globulin 3.1 Albumin/Globulin Ratio 1.1 Chlamy pneumoniae PCR Adenovirus (PCR) B. pertussis DNA (PCR) Coronavirus OC43 (PCR) Coronavirus HKU1 (PCR) Coronavirus 229E (PCR) SARS-CoV-2 (PCR) Coronavirus NL63 (PCR) Human Metapneumovir PCR Influenza A (H1) PCR Influ A (H1N1/09) PCR Influenza A (H3) PCR Influenza Type A (PCR) Influenza Type B (PCR) M. pneumoniae (PCR) Parainfluenza 1 (PCR) Parainfluenza 2 (PCR) Parainfluenza 3 (PCR) Parainfluenza 4 (PCR) RSV (PCR) Entero/Rhino (PCR) 12/17/23 12/17/23 12/17/23 20:46 16:31 14:04 WBC RBC Hgb Hct MCV MCH MCHC RDW Plt Count MPV Neut % (Auto) Lymph % (Auto) Humphreys % (Auto) Eos % (Auto) Baso % (Auto) Neut # (Auto) Lymph # (Auto) Humphreys # (Auto) Eos # (Auto) Baso # (Auto) VBG pH 7.41 VBG pCO2 48.5 VBG pO2 90.9 H VBG HCO3 30.0 VBG Total CO2 31.5 H VBG O2 Saturation 97.1 H VBG Base Excess 5.3 H VBG Lactic Acid 2.0 Sodium Potassium Chloride Carbon Dioxide Anion Gap BUN Creatinine Estimated Creat Clear Estimated GFR Est GFR ( Amer) Glucose POC Glucose 307 H* 258 H Hemoglobin A1c Lactate Calcium Magnesium Total Bilirubin AST ALT Alkaline Phosphatase Troponin I Total Protein Albumin Globulin Albumin/Globulin Ratio Chlamy pneumoniae PCR Adenovirus (PCR) B. pertussis DNA (PCR) Coronavirus OC43 (PCR) Coronavirus HKU1 (PCR) Coronavirus 229E (PCR) SARS-CoV-2 (PCR) Coronavirus NL63 (PCR) Human Metapneumovir PCR Influenza A (H1) PCR Influ A (H1N1/09) PCR Influenza A (H3) PCR Influenza Type A (PCR) Influenza Type B (PCR) M. pneumoniae (PCR) Parainfluenza 1 (PCR) Parainfluenza 2 (PCR) Parainfluenza 3 (PCR) Parainfluenza 4 (PCR) RSV (PCR) Entero/Rhino (PCR) 12/17/23 12/17/23 12/17/23 12:45 12:37 09:51 WBC RBC Hgb Hct MCV MCH MCHC RDW Plt Count MPV Neut % (Auto) Lymph % (Auto) Humphreys % (Auto) Eos % (Auto) Baso % (Auto) Neut # (Auto) Lymph # (Auto) Humphreys # (Auto) Eos # (Auto) Baso # (Auto) VBG pH VBG pCO2 VBG pO2 VBG HCO3 VBG Total CO2 VBG O2 Saturation VBG Base Excess VBG Lactic Acid Sodium Potassium Chloride Carbon Dioxide Anion Gap BUN Creatinine Estimated Creat Clear Estimated GFR Est GFR ( Amer) Glucose POC Glucose 259 H Hemoglobin A1c Lactate 1.0 Calcium Magnesium Total Bilirubin AST ALT Alkaline Phosphatase Troponin I 0.01 Total Protein Albumin Globulin Albumin/Globulin Ratio Chlamy pneumoniae PCR Not detected Adenovirus (PCR) Not detected B. pertussis DNA (PCR) Not detected Coronavirus OC43 (PCR) Not detected Coronavirus HKU1 (PCR) Not detected Coronavirus 229E (PCR) Not detected SARS-CoV-2 (PCR) Not detected Coronavirus NL63 (PCR) Not detected Human Metapneumovir PCR Not detected Influenza A (H1) PCR Not detected Influ A (H1N1/09) PCR Not detected Influenza A (H3) PCR Not detected Influenza Type A (PCR) Not detected Influenza Type B (PCR) Not detected M. pneumoniae (PCR) Not detected Parainfluenza 1 (PCR) Not detected Parainfluenza 2 (PCR) Not detected Parainfluenza 3 (PCR) Not detected Parainfluenza 4 (PCR) Not detected RSV (PCR) Not detected Entero/Rhino (PCR) Not detected DS: Diagnosis Discharge Diagnosis (1) Acute on chronic respiratory failure with hypoxia and hypercapnia: Status: Acute Code(s): J96.21 - Acute and chronic respiratory failure with hypoxia; J96.22 - Acute and chronic respiratory failure with hypercapnia Meds Home Medications and Allergies Home Medications ?Medication ?Instructions ?Recorded ?Confirmed ?Type ergocalciferol (vitamin D2) 1,250 1,250 mcg PO DIRECTED 08/12/20 12/17/23 History mcg (50,000 unit) capsule albuterol sulfate 90 mcg/actuation 2 puff inhalation Q4HP PRN 12/18/22 12/17/23 History aerosol inhaler Shortness Of Breath Or Wheezing apixaban 5 mg tablet (Eliquis) 5 mg PO BID 12/18/22 12/17/23 History docusate sodium 100 mg tablet 100 mg PO BID 12/18/22 12/17/23 History ferrous sulfate 324 mg (65 mg 324 mg PO DAILY 12/18/22 12/17/23 History iron) tablet,delayed release icosapent ethyl 1 gram capsule 1 g PO BID 12/18/22 12/17/23 History (Vascepa) insulin lispro 100 unit/mL 0 sliding scale dose SQ ACHS 12/18/22 12/17/23 History subcutaneous pen Diabetes multivitamin 1 tab PO DAILY 12/18/22 12/17/23 History nitroglycerin 0.4 mg sublingual 0.4 mg sublingual Q5MINP PRN Chest 12/18/22 12/17/23 History tablet Pain omeprazole 40 mg capsule,delayed 40 mg PO HS 12/18/22 12/17/23 History release acetaminophen 500 mg tablet 500 mg PO AC 12/19/22 12/17/23 History albuterol sulfate 2.5 mg/3 mL 2.5 mg inhalation Q4HP PRN 12/19/22 12/17/23 History (0.083 %) solution for nebulization shortness of air or wheezing clopidogrel 75 mg tablet 75 mg PO DAILY 03/18/23 12/17/23 History empagliflozin 10 mg tablet 25 mg PO DAILY 04/19/23 12/17/23 History (Jardiance) insulin glargine 100 unit/mL (3 14 unit SQ HS Diabetes 04/19/23 12/17/23 History mL) subcutaneous pen (Lantus Solostar U-100 Insulin) levothyroxine 50 mcg tablet 50 mcg PO DAILYDM 04/19/23 12/17/23 History ondansetron 4 mg disintegrating 4 mg PO Q8HP PRN Nausea And 04/19/23 12/17/23 History tablet Vomiting bumetanide 2 mg tablet 2 mg PO BID #60 tabs 04/30/23 12/17/23 Rx buspirone 10 mg tablet 10 mg PO TID 07/04/23 12/17/23 History fluticasone fur. 100 mcg-umeclid 1 inh inhalation DAILY 08/13/23 12/17/23 History 62.5 mcg-vilant 25 mcg inhalat.powder (Trelegy Ellipta) paroxetine HCl 40 mg tablet (Paxil) 40 mg PO HS 08/13/23 12/17/23 History rosuvastatin 10 mg tablet 10 mg PO HS 08/13/23 12/17/23 History spironolactone 50 mg tablet 50 mg PO DAILY 08/13/23 12/17/23 History polyethylene glycol 3350 17 17 g PO DAILY 08/14/23 12/17/23 History gram/dose oral powder pen needle,diabetic dual safty 30 #100 ea 09/17/23 12/17/23 History gauge x 3/16 (BD AutoShield Duo Pen Needle) pregabalin 75 mg capsule 75 mg PO TID 09/17/23 12/17/23 History diclofenac sodium 1 % topical gel 1 ea topical Q6 PRN Pain 12/17/23 12/17/23 History loratadine 10 mg tablet 10 mg PO DAILY 12/17/23 12/17/23 History trazodone 50 mg tablet 50 mg PO HS 12/17/23 12/17/23 History azithromycin 500 mg tablet 500 mg PO DAILY 1 day #1 tab 12/18/23 Rx prednisone 20 mg tablet 40 mg (2 x 20 mg) PO DAILY 3 days 12/18/23 Rx #6 tabs New Prescriptions to Start Prescriptions: Mikie Joy prednisone Mikie Barnard Allergies Allergy/AdvReac Type Severity Reaction Status Date / Time cephalexin Allergy Verified 11/13/23 15:16 Penicillins Allergy Verified 11/13/23 15:16 Discharge Plan Disposition Patient Disposition: er [facility] Discharge Order Discharge Orders: Discharge Order (Routine); Ordered 12/18/23 Ordered By: Mikie Barnard Follow up Plan Prescriptions/Medication Reconciliation: New prednisone 20 mg tablet 40 mg PO DAILY 3 Days Qty: 6 0RF azithromycin 500 mg tablet 500 mg PO DAILY 1 Days Qty: 1 0RF Rx Instructions: Finish course tomorrow. Continued bumetanide 2 mg tablet 2 mg PO BID Qty: 60 3RF pregabalin 75 mg capsule 75 mg PO TID (DME) BD AutoShield Duo Pen Needle 30 gauge x 3/16 needle See Rx Instructions .ROUTE .MEDSUPPLY Qty: 100 Rx Instructions: As directed ergocalciferol (vitamin D2) 1,250 mcg (50,000 unit) capsule 1,250 mcg PO DIRECTED Patient Comments: TAKE 1 CAPSULE BY MOUTH EVERY TWO WEEKS (TWICE A MONTH) Rx Instructions: EVERY OTHER WEEK albuterol sulfate 90 mcg/actuation HFA aerosol inhaler 2 puff INHALATION Q4HP PRN (Reason: Shortness Of Breath Or Wheezing) multivitamin Tablet 1 tab PO DAILY omeprazole 40 mg Capsule,Delayed Release(Dr/Ec) 40 mg PO HS icosapent ethyl [Vascepa] 1 gram Capsule 1 g PO BID docusate sodium 100 mg Tablet 100 mg PO BID ferrous sulfate 324 mg (65 mg iron) Tablet,Delayed Release (Dr/Ec) 324 mg PO DAILY Eliquis 5 mg Tablet 5 mg PO BID nitroglycerin 0.4 mg Tablet, Sublingual 0.4 mg SUBLINGUAL Q5MINP PRN (Reason: Chest Pain) Rx Instructions: do not exceed 3 doses per episode insulin lispro 100 unit/mL Insulin Pen 0 sliding scale dose SQ ACHS Rx Instructions: 101-150 3 UNITS 151-200 4 UNITS 201-250 6 UNITS 251-300 9 UNITS 301-350 12 UNITS 351-400 15 UNITS albuterol sulfate 2.5 mg /3 mL (0.083 %) Solution For Nebulization 2.5 mg inhalation Q4HP PRN (Reason: shortness of air or wheezing) acetaminophen 500 mg Tablet 500 mg PO AC buspirone 10 mg tablet 10 mg PO TID paroxetine HCl [Paxil] 40 mg Tablet 40 mg PO HS spironolactone 50 mg tablet 50 mg PO DAILY rosuvastatin 10 mg tablet 10 mg PO HS Trelegy Ellipta 100-62.5-25 mcg blister with device 1 inh INHALATION DAILY polyethylene glycol 3350 17 gram/dose powder 17 g PO DAILY trazodone 50 mg Tablet 50 mg PO HS loratadine 10 mg tablet 10 mg PO DAILY diclofenac sodium 1 % gel 1 ea TOPICAL Q6 PRN (Reason: Pain) clopidogrel 75 mg Tablet 75 mg PO DAILY levothyroxine 50 mcg Tablet 50 mcg PO DAILYDM ondansetron 4 mg Tablet,Disintegrating 4 mg PO Q8HP PRN (Reason: Nausea And Vomiting) insulin glargine [Lantus Solostar U-100 Insulin] 100 unit/mL (3 mL) Insulin Pen 14 unit SQ HS Jardiance 10 mg tablet 25 mg PO DAILY Problem Reconciliation Problems Reviewed?: Yes Patient Discharge Instructions Patient Instructions: DI for Respiratory Failure Print Language: Occitan Providers Primary Care Provider: Tone Ward Admit Provider: Lamin Hemphill Attending Provider: Lamin Hemphill
[2023-12-18] MEDS: KETOROLAC 10MG TABLET 10 MG PO (12:03)
== END 2023-12-18 14:00 ==
LOC: ER 09:42 → 2ND 10:10
PROVIDERS: Internal Medicine Pulmonary Disease; Admitting Provider Internal Medicine Adolescent Medicine; Emergency Provider Emergency Medicine; PCP Internal Medicine; Visit Provider Internal Medicine Adolescent Medicine
DX: J96.22 Acute and chronic respiratory failure with hypercapnia (principal); J96.11 Chronic respiratory failure with hypoxia; Z99.81 Dependence on supplemental oxygen; G93.41 Metabolic encephalopathy; I27.20 Pulmonary hypertension, unspecified; Z79.4 Long term (current) use of insulin; E11.9 Type 2 diabetes mellitus without complications; I89.0 Lymphedema, not elsewhere classified; F17.210 Nicotine dependence, cigarettes, uncomplicated; Z79.01 Long term (current) use of anticoagulants; Z79.899 Other long term (current) drug therapy; I50.20 Unspecified systolic (congestive) heart failure; I48.20 Chronic atrial fibrillation, unspecified; I25.118 Atherosclerotic heart disease of native coronary artery with other forms of angina pectoris; I11.0 Hypertensive heart disease with heart failure; E66.01 Morbid (severe) obesity due to excess calories; Z68.37 Body mass index [BMI] 37.0-37.9, adult
CPT/HCPCS: 36415; 71045; 80053; 82803; 82962; 83036; 83605; 83735; 83880; 84484; 85025; 87265; 87486; 87581; 87632; 87635; 87636; 93005; 94640; 94660; 94760; 94761; 99291; G0378; J0131; J0456; J1939; J1940; J2919; J3475; J7050; J7620

== ENCOUNTER 2024-01-07 11:46 | Outpatient (CLI) | payer MEDICARE, MEDICAID, SELFPAY ==
--- NOTE | 2024-01-07 | US_ITS ---
FINAL REPORT CLINICAL HISTORY: previous smoker, HTN, DM, hyperlipidemia, bilateral redness and oozing, bilateral claudication, bilateral rest pain, CAD, obesity FINDINGS: ANKLE-BRACHIAL PRESSURE INDICES Pressure indices are as follows: RIGHT LOWER EXTREMITY: Ankle-brachial pressure index: 0.9 Comments: Mild LEFT LOWER EXTREMITY: Ankle-brachial pressure index: 0.7 Comments: Mild IMPRESSION: Mild peripheral vascular disease of the lower extremities Reviewed, Interpreted and Dictated by Delfino Ruth III, MD Transcribed by Mayra Rios Authenticated and [facility]
== END 2024-01-07 23:59 | disposition home or self-care (01) ==
LOC: RT 11:46
PROVIDERS: PCP Internal Medicine; Visit Provider Nurse Practitioner Family
DX: I73.9 Peripheral vascular disease, unspecified (principal); R60.0 Localized edema
CPT/HCPCS: 93923

== ENCOUNTER 2024-03-27 07:10 | Emergency (ER) | payer MEDICARE, MEDICAID, SELFPAY ==
[2024-03-27] VITALS (9 sets, daily range): BP systolic 134–149; BP diastolic 67–100; PULSE 50–58; RESP 12–20; TEMP 36.7–36.8; O2SAT 95–99; BMI 41.6
--- NOTE | 2024-03-27 07:15 | PC.NURSE ---
Called Radiology for STAT scans
--- NOTE | 2024-03-27 07:16 | XR_ITS ---
FINAL REPORT CLINICAL HISTORY: trauma; fall COMPARISON: 12/17/2023 FINDINGS: A portable view of the chest was obtained. The heart is borderline in size. Mediastinal silhouette is within normal limits. There are chronic increased interstitial markings. The lungs are otherwise clear. There is no pleural effusion or pneumothorax. IMPRESSION: No acute process on this portable exam. Reviewed, Interpreted and Dictated by Pamela Soto MD Transcribed by Mayra Rios Authenticated and [facility]
--- NOTE | 2024-03-27 07:16 | XR_ITS ---
FINAL REPORT CLINICAL HISTORY: trauma; fall COMPARISON: None FINDINGS: SINGLE VIEW PELVIS: A single view of the pelvis was obtained. Exam is limited by patient body habitus. There is no displaced fracture of the pelvis or hips. Degenerative joint disease is noted. Soft tissues are unremarkable. IMPRESSION: Limited exam but no displaced fracture. If clinical concern persists, recommend CT scan for further evaluation. Reviewed, Interpreted and Dictated by Pamela Soto MD Transcribed by Mayra Rios Authenticated and [facility]
--- NOTE | 2024-03-27 07:17 | XR_ITS ---
FINAL REPORT CLINICAL HISTORY: fall, pain bilat knees COMPARISON: None FINDINGS: 3 views of the right tibia and fibula were obtained. There is no acute fracture of the right tibia or fibula. The knee and ankle appear intact. There is nonspecific soft tissue edema. IMPRESSION: No acute osseous abnormality of the right tibia or fibula. Reviewed, Interpreted and Dictated by Pamela Soto MD Transcribed by Maria Esther Owen Authenticated and . [facility]
--- NOTE | 2024-03-27 07:17 | ECG_ITS ---
APPROVED REPORT Exam: Resting ECG HR:52 bpm ECG Measurements Heart Rate 52 AXES WA 198 P 79 QRSd 116 QRS 75 QT 492 T 78 QTc 472 Conclusion SINUS BRADYCARDIA LOW QRS VOLTAGE IN EXTREMITY LEADS [QRS DEFLECTION < 0.5 mV IN LIMB LEADS] MODERATE INTRAVENTRICULAR CONDUCTION DELAY [110+ ms QRS DURATION] MINIMAL ST DEPRESSION [0.025+ mV ST DEPRESSION] PROLONGED QT INTERVAL ABNORMAL ECG UNCONFIRMED REPORT Electronically signed by : NEERAJ JIMÉNEZ, 03/27/2024 23:54:55
--- NOTE | 2024-03-27 07:17 | XR_ITS ---
FINAL REPORT CLINICAL HISTORY: fall, pain bilat knees COMPARISON: None FINDINGS: AP, lateral and oblique views of the right knee were obtained. There is no acute fracture or dislocation. There is degenerative joint disease. There is a sclerotic lesion in the proximal tibia which is likely benign. The soft tissues are normal. There is no joint effusion. IMPRESSION: No acute osseous abnormality of the right knee. Reviewed, Interpreted and Dictated by Pamela Soto MD Transcribed by Maria Esther Owen Authenticated and [facility]
--- NOTE | 2024-03-27 07:17 | XR_ITS ---
FINAL REPORT CLINICAL HISTORY: fall, pain bilat knees COMPARISON: 06/07/2023 FINDINGS: AP, lateral and oblique views of the left knee were obtained. There is no acute fracture or dislocation. There is degenerative joint disease, which is stable. There is a predominantly sclerotic lesion within the proximal tibia that is unchanged and possibly an enchondroma. There is no joint effusion. Soft tissues are normal. IMPRESSION: No acute osseous abnormality of the left knee. Reviewed, Interpreted and Dictated by Pamela Soto MD Transcribed by Maria Esther Owen Authenticated and [facility]
--- NOTE | 2024-03-27 07:18 | CT_ITS ---
FINAL REPORT TECHNIQUE: Thin section axial images were obtained from skull base to vertex without contrast. Coronal and sagittal reconstruction images were obtained from the axial data. Exam was performed using dose reduction techniques such as automated exposure control, adjustment of the mA and kV according to patient size, and use of iterative reconstruction technique. CLINICAL HISTORY: trauma, critical injury suspected FALL OUT OF BED AT [facility] COMPARISON: 09/11/2023 FINDINGS: There is no mass effect or midline shift. There is no hydrocephalus. There is no intracranial hemorrhage. There is a calcification in the right frontal lobe, which is stable when compared to the prior exam. There are bilateral chronic lacunar infarcts present in the basal ganglia, also stable in appearance. The posterior fossa is without acute abnormality. The basilar cisterns are preserved. There is a retention cyst or polyp present in the left maxillary sinus. No acute osseous abnormality is identified. IMPRESSION: No acute intracranial abnormality. Reviewed, Interpreted and Dictated by Pamela Soto MD Transcribed by Paula Schmidt Authenticated and [facility]
--- NOTE | 2024-03-27 07:18 | CT_ITS ---
FINAL REPORT TECHNIQUE: Axial imaging of the chest is obtained after the administration of contrast. 3-D MIP reformatted images were also obtained and reviewed per PE protocol. This study was performed with techniques to keep radiation doses as low as reasonably achievable (ALARA). Individualized dose reduction techniques using automated exposure control or adjustment of mA and/or kV according to the patient's size were employed. CLINICAL HISTORY: fell out of bed, bruising to lips, back pain. COMPARISON: 09/11/2023 FINDINGS: There is suboptimal opacification of the peripheral pulmonary vessels secondary to the contrast bolus timing. There is no evidence of central pulmonary embolus. There is no aortic dissection. Heart size is mildly enlarged. Prominent coronary artery calcifications are identified. There is no mediastinal, hilar, or axillary lymphadenopathy. There has been interval resolution of bilateral lower lobe pneumonia since the prior exam. There is a 6 mm left lower lobe nodule best seen on image #65, that was possibly previously obscured by airspace disease. There is no pleural or pericardial effusion. No gross osseous abnormality. IMPRESSION: No evidence of central pulmonary embolus or aortic dissection. Interval resolution of the bilateral lower lobe pneumonia since the prior exam of 09/11/2023. There is a 6 mm left lower lobe nodule best seen on image #65, that was possibly previously obscured by airspace disease. Reviewed, Interpreted and Dictated by Pamela Soto MD Transcribed by Paula Schmidt Authenticated and [facility]
--- NOTE | 2024-03-27 07:18 | CT_ITS ---
FINAL REPORT TECHNIQUE: Thin section axial images are obtained through the brain after intravenous contrast injection. Multiplanar reconstructions were obtained from the axial data. Exam was performed using dose reduction techniques such as automated exposure control, adjustment of the mA and kV according to patient size, and use of iterative reconstruction technique. CLINICAL HISTORY: fell out of bed, bruising to lips, back pain. COMPARISON: 09/11/2023 FINDINGS: The intracerebral portions of the carotid arteries are patent. The anterior and middle cerebral arteries are patent. The posterior cerebral arteries arise from the basilar artery. There is a stable, short segment mild stenosis of the proximal left [employer]. The right [employer] is patent. The basilar artery is patent. The left vertebral artery terminates in a cerebellar branch. The right vertebral artery is dominant. There is no vessel occlusion, aneurysm, or AVM. IMPRESSION: No evidence of large vessel occlusion, aneurysm, or AVM. Short segment, mild stenosis of the proximal left [employer] which is unchanged from prior. Authenticated and [facility]
--- NOTE | 2024-03-27 07:18 | CT_ITS ---
FINAL REPORT TECHNIQUE: Thin section axial images were obtained through the cervical spine without contrast. Multiplanar reconstruction images were obtained from the axial data. Exam was performed using dose reduction techniques. CLINICAL HISTORY: trauma, critical injury suspected FALL OUT OF BED AT [facility] FINDINGS: Motion artifact limits exam quality. There is no acute fracture. There is anterolisthesis of C3 on 4 and C4 and 5, likely degenerative. Multilevel degenerative disc disease is most pronounced at C5-6 and C6-7. There is no evidence of unilateral or bilateral facet lock. Vertebral body height is preserved. No acute paraspinal abnormality is identified. IMPRESSION: Multilevel degenerative disc disease without acute osseous abnormality. Reviewed, Interpreted and Dictated by Pamela Soto MD Transcribed by Cass Pérez Authenticated and . [facility]
--- NOTE | 2024-03-27 07:18 | CT_ITS ---
FINAL REPORT TECHNIQUE: Thin section axial images were obtained through the lumbar spine without contrast. Sagittal and coronal reconstruction images were obtained from the axial data. Exam was performed using dose reduction techniques. CLINICAL HISTORY: trauma, critical injury suspected FALL OUT OF BED AT [facility] FINDINGS: There is no acute fracture or acute malalignment of the lumbar spine. Vertebral body height is preserved. There is very mild multilevel degenerative disc disease. Note is made of the compression deformity of T12. There is no significant central stenosis. Paraspinal soft tissues are within normal limits. There is no paraspinal mass or fluid collection. IMPRESSION: Mild multilevel degenerative disc disease. Reviewed, Interpreted and Dictated by Pamela Soto MD Transcribed by Cass Pérez Authenticated and [facility]
--- NOTE | 2024-03-27 07:18 | CT_ITS ---
FINAL REPORT TECHNIQUE: Thin section axial images were obtained through the abdomen and pelvis after contrast injection per CT angiogram protocol. Multiplanar reconstruction images were obtained from the axial data. This exam was performed with techniques to keep radiation dose as low as reasonably achievable. This includes automated exposure control, adjustment of the MA and KVP, and iterative reconstruction technique. CLINICAL HISTORY: fell out of bed, bruising to lips, back pain. COMPARISON: Prior CT of the abdomen and pelvis 09/11/2023 FINDINGS: CTA: No abdominal aortic aneurysm or aortic dissection. The celiac axis, superior mesenteric artery, and inferior mesenteric artery are patent without stenosis. Calcifications are present at the origins of the renal arteries, on the right producing mild to moderate stenosis, and on the left producing mild stenosis. The common iliac arteries and visualized portions of the internal and external iliac arteries are patent. No significant stenosis. NONVASCULAR: There is fatty infiltration of the liver. The gallbladder is absent. Left renal cysts are once again identified, without evidence of hydronephrosis. The remaining solid abdominal organs are without acute abnormality. The GI tract is without acute abnormality. There is a stable right lateral abdominal hernia, with a wide mouth also noted on the prior CT. The patient has undergone ventral hernia repair. No lymphadenopathy or free fluid. No gross osseous abnormality. IMPRESSION: No evidence of abdominal aortic aneurysm or dissection, overall stable when compared with prior CT of the abdomen and pelvis 09/11/2023. Reviewed, Interpreted and Dictated by Pamela Soto MD Transcribed by Paula Schmidt Authenticated and [facility]
--- NOTE | 2024-03-27 07:18 | CT_ITS ---
FINAL REPORT TECHNIQUE: Thin section axial images were obtained through the thoracic spine without contrast. Sagittal and coronal images were obtained from the axial data. This study was performed with techniques to keep radiation doses as low as reasonably achievable, (ALARA). Individualized dose reduction techniques using automated exposure control or adjustment of mA and/or kV according to the patient's size were employed. CLINICAL HISTORY: trauma, critical injury suspected FALL OUT OF BED AT [facility] FINDINGS: Mild compression deformity of T7 is unchanged from prior chest CT dated 09/11/2023. There is a new compression deformity involving the inferior endplate of T12, may be acute or subacute. Multilevel degenerative disc disease is identified. There is no malalignment. There are linear opacities in both lungs, likely atelectasis or scar. Few scattered 5 mm or less pulmonary nodules are identified. No acute paraspinal abnormality is identified. IMPRESSION: New, very mild compression deformity of T12. Consider MRI. Reviewed, Interpreted and Dictated by Pamela Soto MD Transcribed by Cass Pérez Authenticated and [facility]
--- NOTE | 2024-03-27 07:18 | CT_ITS ---
FINAL REPORT TECHNIQUE: Thin section axial images were obtained through the neck after contrast administration per CT angiogram protocol. Coronal reconstruction images were obtained from the axial data. Exam was performed using dose reduction technique. CLINICAL HISTORY: fell out of bed, bruising to lips, back pain. COMPARISON: 09/11/2023 FINDINGS: Exam is suboptimal due to contrast bolus timing. Aortic arch: There is a normal three-vessel configuration to the aortic arch. Evaluation for stenosis of the great vessels is limited by artifact. Right carotid artery: The right common carotid artery and internal carotid artery are patent without significant stenosis. Left carotid artery: Again seen is dense calcification of the carotid bulb which limits evaluation. There is at least a 60 to 70% stenosis of the carotid bulb. The more distal portions of the left internal carotid artery are patent to the skull base. Vertebral arteries: The left vertebral artery is very small. Artifact related to contrast injection limits evaluation proximally. Otherwise, both vertebral arteries appear patent to the skull base. IMPRESSION: 1. Somewhat limited exam due to contrast bolus timing. 2. No right carotid stenosis. 3. Likely stable 60 to 70% stenosis at the left carotid bulb. 4. Limited evaluation of the proximal left vertebral artery due to artifact. Otherwise, the vertebral arteries appear patent. Authenticated and [facility]
--- NOTE | 2024-03-27 07:20 | HMH.EDGENADL ---
Discharge Plan Disposition Patient Disposition: Home, Self-Care Condition: Fair Prescriptions Prescriptions: New methocarbamol 750 mg tablet 750 mg PO QID Qty: 120 0RF No Action bumetanide 2 mg tablet 2 mg PO BID Qty: 60 3RF pregabalin 75 mg capsule 75 mg PO TID (DME) BD AutoShield Duo Pen Needle 30 gauge x 3/16 needle See Rx Instructions .ROUTE .MEDSUPPLY Qty: 100 Rx Instructions: As directed terconazole 0.4 % cream 1 appful vaginal HS 7 Days Qty: 45 0RF estradiol [Estrace] 0.01 % (0.1 mg/gram) cream 1 appful vaginal DAILY Qty: 42.5 0RF Rx Instructions: for 14 days ergocalciferol (vitamin D2) 1,250 mcg (50,000 unit) capsule 1,250 mcg PO DIRECTED Patient Comments: TAKE 1 CAPSULE BY MOUTH EVERY TWO WEEKS (TWICE A MONTH) Rx Instructions: EVERY OTHER WEEK Mounjaro 5 mg/0.5 mL pen injector 5 mg SQ WEEKLY albuterol sulfate 90 mcg/actuation HFA aerosol inhaler 2 puff INHALATION Q4HP PRN (Reason: Shortness Of Breath Or Wheezing) multivitamin Tablet 1 tab PO DAILY omeprazole 40 mg Capsule,Delayed Release(Dr/Ec) 40 mg PO HS icosapent ethyl [Vascepa] 1 gram Capsule 1 g PO BID docusate sodium 100 mg Tablet 100 mg PO BID ferrous sulfate 324 mg (65 mg iron) Tablet,Delayed Release (Dr/Ec) 324 mg PO DAILY Eliquis 5 mg Tablet 5 mg PO BID nitroglycerin 0.4 mg Tablet, Sublingual 0.4 mg SUBLINGUAL Q5MINP PRN (Reason: Chest Pain) Rx Instructions: do not exceed 3 doses per episode insulin lispro 100 unit/mL Insulin Pen 0 sliding scale dose SQ ACHS Rx Instructions: 101-150 3 UNITS 151-200 4 UNITS 201-250 6 UNITS 251-300 9 UNITS 301-350 12 UNITS 351-400 15 UNITS albuterol sulfate 2.5 mg /3 mL (0.083 %) Solution For Nebulization 2.5 mg inhalation Q4HP PRN (Reason: shortness of air or wheezing) acetaminophen 500 mg Tablet 500 mg PO AC buspirone 10 mg tablet 10 mg PO TID paroxetine HCl [Paxil] 40 mg Tablet 40 mg PO HS spironolactone 50 mg tablet 50 mg PO DAILY rosuvastatin 10 mg tablet 10 mg PO HS Trelegy Ellipta 100-62.5-25 mcg blister with device 1 inh INHALATION DAILY polyethylene glycol 3350 17 gram/dose powder 17 g PO DAILY trazodone 50 mg Tablet 50 mg PO HS loratadine 10 mg tablet 10 mg PO DAILY diclofenac sodium 1 % gel 1 ea TOPICAL Q6 PRN (Reason: Pain) clopidogrel 75 mg Tablet 75 mg PO DAILY levothyroxine 50 mcg Tablet 50 mcg PO DAILYDM ondansetron 4 mg Tablet,Disintegrating 4 mg PO Q8HP PRN (Reason: Nausea And Vomiting) insulin glargine [Lantus Solostar U-100 Insulin] 100 unit/mL (3 mL) Insulin Pen 14 unit SQ HS Jardiance 10 mg tablet 25 mg PO DAILY Referrals Follow up/Referrals: Provider,Referral, [Primary Care Provider] - See instructions Activity Restrictions/Add. Instructions Additional Instructions/Restrictions: Take Tylenol and your muscle relaxer as needed for additional pain control. Expect to feel sore over the next few days. Your bruises will take time to go down due to the blood thinners you take. At this time, no severe injuries were found. Please follow up with your primary care provider in 2-3 days. Please return to ED if your symptoms worsen, change in location, change in severity, new symptoms develop or if you become concerned for your health. Clinical Impressions Clinical Impression: Fall Qualifiers: Encounter type: initial encounter Qualified Code(s): W19.XXXA - Unspecified fall, initial encounter Instructions Patient Instructions: Trauma Print Language Print Language: Turkmen Discharge ED Provider: Leda Wang General Adult HPI <Alvarez Gibbs MD - Last Filed: 03/27/24 08:03> General Chief complaint: Trauma Stated complaint: Fall Time Seen by Provider: 03/27/24 07:16 History of Present Illness HPI narrative: 73-year-old female with history of obesity, hypertension hyperlipidemia coronary artery disease atrial fibrillation reportedly on Eliquis presents for fall. She fell out of bed and woke up on the floor with her face on the ground. She complains of facial pain, abdominal pain, bilateral knee pain. Apparent positive loss of consciousness. She has swelling of the lip. Related Data Home Medications ?Medication ?Instructions ?Recorded ?Confirmed ergocalciferol (vitamin D2) 1,250 1,250 mcg PO DIRECTED 08/12/20 03/27/24 mcg (50,000 unit) capsule albuterol sulfate 90 mcg/actuation 2 puff inhalation Q4HP PRN 12/18/22 03/27/24 aerosol inhaler Shortness Of Breath Or Wheezing apixaban 5 mg tablet (Eliquis) 5 mg PO BID 12/18/22 03/27/24 docusate sodium 100 mg tablet 100 mg PO BID 12/18/22 03/27/24 ferrous sulfate 324 mg (65 mg 324 mg PO DAILY 12/18/22 03/27/24 iron) tablet,delayed release icosapent ethyl 1 gram capsule 1 g PO BID 12/18/22 03/27/24 (Vascepa) insulin lispro 100 unit/mL 0 sliding scale dose SQ ACHS 12/18/22 03/27/24 subcutaneous pen Diabetes multivitamin 1 tab PO DAILY 12/18/22 03/27/24 nitroglycerin 0.4 mg sublingual 0.4 mg sublingual Q5MINP PRN Chest 12/18/22 03/27/24 tablet Pain omeprazole 40 mg capsule,delayed 40 mg PO HS 12/18/22 03/27/24 release acetaminophen 500 mg tablet 500 mg PO AC 12/19/22 03/27/24 albuterol sulfate 2.5 mg/3 mL 2.5 mg inhalation Q4HP PRN 12/19/22 03/27/24 (0.083 %) solution for nebulization shortness of air or wheezing clopidogrel 75 mg tablet 75 mg PO DAILY 03/18/23 03/27/24 empagliflozin 10 mg tablet 25 mg PO DAILY 04/19/23 03/27/24 (Jardiance) insulin glargine 100 unit/mL (3 14 unit SQ HS Diabetes 04/19/23 03/27/24 mL) subcutaneous pen (Lantus Solostar U-100 Insulin) levothyroxine 50 mcg tablet 50 mcg PO DAILYDM 04/19/23 03/27/24 ondansetron 4 mg disintegrating 4 mg PO Q8HP PRN Nausea And 04/19/23 03/27/24 tablet Vomiting buspirone 10 mg tablet 10 mg PO TID 07/04/23 03/27/24 fluticasone fur. 100 mcg-umeclid 1 inh inhalation DAILY 08/13/23 03/27/24 62.5 mcg-vilant 25 mcg inhalat.powder (Trelegy Ellipta) paroxetine HCl 40 mg tablet (Paxil) 40 mg PO HS 08/13/23 03/27/24 rosuvastatin 10 mg tablet 10 mg PO HS 08/13/23 03/27/24 spironolactone 50 mg tablet 50 mg PO DAILY 08/13/23 03/27/24 polyethylene glycol 3350 17 17 g PO DAILY 08/14/23 03/27/24 gram/dose oral powder pen needle,diabetic dual safty 30 #100 ea 09/17/23 03/27/24 gauge x 3/16 (BD AutoShield Duo Pen Needle) pregabalin 75 mg capsule 75 mg PO TID 09/17/23 03/27/24 diclofenac sodium 1 % topical gel 1 ea topical Q6 PRN Pain 12/17/23 03/27/24 loratadine 10 mg tablet 10 mg PO DAILY 12/17/23 03/27/24 trazodone 50 mg tablet 50 mg PO HS 12/17/23 03/27/24 tirzepatide 5 mg/0.5 mL 5 mg SQ WEEKLY 03/11/24 03/27/24 subcutaneous pen injector (Heather) Previous Rx's ?Medication ?Instructions ?Recorded bumetanide 2 mg tablet 2 mg PO BID #60 tabs 04/30/23 estradiol 0.01% (0.1 mg/gram) 1 appful vaginal DAILY #42.5 grams 03/20/24 vaginal cream (Estrace) terconazole 0.4 % vaginal cream 1 appful vaginal HS 7 days #45 03/20/24 grams methocarbamol 750 mg tablet 750 mg PO QID #120 tabs 03/27/24 Allergies Allergy/AdvReac Type Severity Reaction Status Date / Time cephalexin Allergy Hives Verified 03/27/24 07:51 Penicillins Allergy Hives Verified 03/27/24 07:51 PFS <Alvarez Gibbs MD - Last Filed: 03/27/24 08:03> [facility] Disclaimer: The information contained in this section may have been updated after the patient was seen, as this information can be updated by other users. Medical History Swelling of both lower extremities Coronary artery disease Cellulitis of left lower leg Itchy skin Nausea and vomiting in adult patient Acute on chronic respiratory failure with hypoxemia Accidental overdose Chronic respiratory failure with hypoxia and hypercapnia Lung nodule Rotator cuff arthropathy of right shoulder Acute anterior epistaxis Chronic hypoxemic respiratory failure O2 dependent Nodule of left lung Heart attack Encounter for screening for malignant neoplasm of lung COPD mixed type History of smoking 30 or more pack years Dyspnea Bilateral hearing loss due to cerumen impaction Encounter for removal of nasal packing CAD in [place] artery Cardiomyopathy Non-STEMI (non-ST elevated myocardial infarction) Right ventricular dilation Coronary artery disease HFrEF (heart failure with reduced ejection fraction) Pneumonia Diabetes mellitus, type 2 Iron deficiency anemia Pulmonary hypertension Osteoporosis Major depressive disorder Heart failure Depression Lymphedema Insomnia Class 2 obesity due to excess calories with body mass index (BMI) of 39.0 to 39.9 in adult Fibromyalgia Congestive heart failure Atrial fibrillation Anxiety HTN (hypertension) HLD (hyperlipidemia) COPD (chronic obstructive pulmonary disease) BMI 30.0-30.9,adult Osteoarthritis Callus of foot Paresthesia of both lower extremities Onychodystrophy Onychomycosis Diabetic foot Surgical History History of coronary artery stent placement History of bladder surgery H/O: hysterectomy H/O hernia repair Family History Other Diabetes Hyperlipidemia Hypertension No significant family history Social History Smoking Status: Smoker, status unknown tobacco type: cigarettes packs per day: 2 alcohol intake: never substance use type: denies use current occupational status: retired and disabled Travel in the last 8 weeks: None housing: skilled nursing lives independently: No skilled nursing: Yes caffeine: Yes Have you lived/traveled outside [place] in past 30 days?: No Contact w/someone who lives/traveled outside [place] past 30 days?: No Exposure to someone with infectious disease in past 14 days?: No Do you have a fever (greater than 100.4 F or 38 C)?: No Have you tested positive for COVID-19: No Exposed to someone with COVID-19 in past 14 days?: No Do you have a sore throat?: No Do you have a cough?: No Do you have any weakness?: No Do you have any diarrhea?: No Are you experiencing any unusual bleeding?: No Do you have any muscle aches/pain?: No Do you have any abdominal pain?: No Are you experiencing loss of taste or smell?: No Other Medical History Have you received the Flu Vaccine for this season: No Have you received the Pneumonia Vaccine: Yes <Alvarez Gibbs MD - Last Filed: 03/27/24 08:03> ROS Obtained: Yes All systems reviewed & no additional complaints except as documented Physical Exam <Alvarez Gibbs MD - Last Filed: 03/27/24 08:03> General General appearance: alert and in no apparent distress Head Head exam: normocephalic and other (Swelling of the lip without external laceration) Eye Eye exam: Present normal appearance, PERRL and EOMI ENT ENT exam: Present normal oropharynx and normal external ear exam Neck Neck exam: Present normal inspection and full ROM Chest Chest inspection: Present normal inspection and symmetric chest wall rise; Absent tenderness Respiratory Respiratory exam: Present normal lung sounds bilaterally; Absent respiratory distress Cardiovascular Cardiovascular exam: Present regular rate and normal rhythm Abdominal Exam Abdominal exam: Present soft, distention and tenderness (Scattered old appearing bruising, mild generalized tenderness); Absent guarding Extremities Exam Extremities exam: Present edema and other (Bilateral lower extremity edema. Tenderness to the bilateral knees and tib-fib.) Back Exam Back exam: Present normal inspection; Absent tenderness Neurological Exam Neurological exam: Present alert and oriented X3; Absent motor sensory deficit Psychiatric Psychiatric exam: Present normal affect and normal mood Skin Skin exam: Present warm, dry and normal color Lymphatic Lymphatic Findings: no adenopathy Medical Decision Making <Alvarez Gibbs MD - Last Filed: 03/27/24 08:03> Medical Records Medical records reviewed: Yes I reviewed the patient's medical records. Screening: Per USPSTF and CDC recommendations, given the prevalence of disease in our region, it is our hospital?s policy to screen for HIV and viral Hepatitis for all patients aged 18 and over and those with ongoing risk factors. Tj Inquiry Pt receiving controlled substance: No Tj was queried for this patient: No Vital Signs: 03/27/24 07:10 03/27/24 07:30 03/27/24 09:01 Temperature 98.3 F Temperature Source Oral Pulse Rate 53 L 57 L Pulse Rate [Left] 52 L Respiratory Rate 20 12 14 Blood Pressure 139/67 149/74 H Blood Pressure [Left Arm] 134/100 H Blood Pressure Mean [Left Arm] 111 02 Sat by Pulse Oximetry 95 96 99 Oxygen Delivery Method Nasal Cannula Room Air Nasal Cannula Oxygen Flow Rate (LPM) 3 03/27/24 09:31 03/27/24 10:01 03/27/24 10:31 Temperature Temperature Source Pulse Rate 50 L 52 L 58 L Pulse Rate [Left] Respiratory Rate 13 13 12 Blood Pressure 148/77 H 143/73 H 136/67 Blood Pressure [Left Arm] Blood Pressure Mean [Left Arm] 02 Sat by Pulse Oximetry 98 99 98 Oxygen Delivery Method Room Air Nasal Cannula Nasal Cannula Oxygen Flow Rate (LPM) Lab Data Lab results reviewed: Yes I reviewed the patient's lab results. Lab Results 03/27/24 07:43: WBC 8.6, RBC 5.36, Hgb 14.7, Hct 47.9 H, MCV 89.4, MCH 27.4, MCHC 30.7 L, RDW 19.2 H, Plt Count 182, MPV 11.0 H, Neut % (Auto) 67.9, Lymph % (Auto) 17.6, Cuming % (Auto) 10.9 H, Eos % (Auto) 2.1, Baso % (Auto) 0.9, Neut # (Auto) 5.9, Lymph # (Auto) 1.5, Cuming # (Auto) 0.9, Eos # (Auto) 0.2, Baso # (Auto) 0.1, PT 10.1, INR 0.91, APTT 27.6, Sodium 138, Potassium 4.6, Chloride 94 L, Carbon Dioxide 40 H, Anion Gap 8.6, BUN 32 H, Creatinine 1.10 H, Estimated Creat Clear 37, Estimated GFR 49 L, Est GFR ( Amer) 59, Glucose 64 L, Calcium 9.0, Total Bilirubin 0.6, AST 39 H, ALT 18, Alkaline Phosphatase 64, Total Protein 7.8, Albumin 4.3, Globulin 3.5 H, Albumin/Globulin Ratio 1.2 03/27/24 07:43 03/27/24 07:43 Orders (Tests/Meds): ED MEDICATIONS Discontinued Medications Generic Name Dose Route Start Last Admin Trade Name Freq PRN Reason Stop Dose Admin Acetaminophen 1,000 mg 03/27/24 11:07 03/27/24 11:23 Acetaminophen 500mg Tab PO 03/27/24 11:08 1,000 mg ONCE ONE Administration Iopamidol 100 ml 03/27/24 08:16 03/27/24 08:18 Iopamidol-370 (76%);100ml Bottle IV 03/27/24 08:17 100 ml ONCE ONE Administration Iopamidol 60 ml 03/27/24 08:16 03/27/24 08:18 Iopamidol-370 (76%);100ml Bottle IV 03/27/24 08:17 60 ml ONCE ONE Administration Methocarbamol 750 mg 03/27/24 11:08 03/27/24 11:23 Methocarbamol 500mg Tablet PO 03/27/24 11:09 750 mg ONCE ONE Administration Oxycodone HCl 5 mg 03/27/24 10:14 03/27/24 10:23 Oxycodone 5mg Immediate Release Tablet PO 03/27/24 10:15 5 mg ONCE ONE Administration Sodium Chloride 50 ml 03/27/24 08:16 03/27/24 08:18 0.9 % Sodium Chloride 50 Ml Vial IV 03/27/24 08:17 50 ml ONCE ONE Administration Sodium Chloride 10 ml 03/27/24 08:16 03/27/24 08:18 Sodium Chloride 0.9% 10ml Syr (Rad Only) IV 03/27/24 08:17 10 ml ONCE ONE Administration Sodium Chloride 30 ml 03/27/24 08:16 03/27/24 08:18 0.9 % Sodium Chloride 50 Ml Vial IV 03/27/24 08:17 30 ml ONCE ONE Administration ORDERS Category Date Time Status CT angio abdomen pelvis Stat Cat Scan 03/27/24 07:[address] angio chest - dissection Stat Cat Scan 03/27/24 07:[address] angio head Stat Cat Scan 03/27/24 07:[address] angio neck Stat Cat Scan 03/27/24 07:[address] cervical spine wo con Stat Cat Scan 03/27/24 07:[address] head/brain wo con Stat Cat Scan 03/27/24 07:[address] lumbar spine wo con Stat Cat Scan 03/27/24 07:[address] thoracic spine wo con Stat Cat Scan 03/27/24 07:18 Completed Fibula/tibia XR right 2 views [XR tibia fibula RT 2V] Exams 03/27/24 07:17 Completed Stat Knee XR left 3 views [XR knee LT 3V] Stat Exams 03/27/24 07:17 Completed XR chest portable Stat Exams 03/27/24 07:16 Completed XR knee RT 3V Stat Exams 03/27/24 07:17 Completed XR pelvis 1-2V Stat Exams 03/27/24 07:16 Completed CBC w/Auto Diff [Complete Blood Count Auto Diff] Stat Lab 03/27/24 07:43 Completed CMP [Comprehensive Metabolic Panel] Stat Lab 03/27/24 07:43 Completed PT INR [Prothrombin Time INR] Stat Lab 03/27/24 07:43 Completed PTT [Activated Partial Thrombo Time] Stat Lab 03/27/24 07:43 Completed ECG Data Tracing #1: I reviewed this ECG and interpreted as documented below: Sinus bradycardia with rate of 52, subtle ST depression in the precordial leads. ECG initial impression date: 03/27/24 ECG initial impression time: 07:17 Medical Decision Narrative: 73-year-old female with history of coronary artery disease, lymphedema, obesity, hypertension hyperlipidemia, A-fib on Eliquis presents after falling out of bed, landing on her face, complaining of facial pain abdominal pain and knee pain. History was obtained via interactive discussion with patient, EMS, chart review. On arrival, patient is [afebrile, hemodynamically stable, satting appropriately, alert, oriented x4, GCS 15], moving all extremities spontaneously. Full physical exam performed and significant for swelling to the lips, tenderness to the abdomen and knees bilaterally Differential includes but is not limited to intracranial trauma intrathoracic trauma intra-abdominal trauma spine trauma extremity trauma. Workup initiated including trauma workup with labs, radiographs and CTAs. At this time care handed off to oncoming physician. <Leda Wang MD - Last Filed: 03/27/24 11:36> Vital Signs: 03/27/24 07:10 03/27/24 07:30 03/27/24 09:01 Temperature 98.3 F Temperature Source Oral Pulse Rate 53 L 57 L Pulse Rate [Left] 52 L Respiratory Rate 20 12 14 Blood Pressure 139/67 149/74 H Blood Pressure [Left Arm] 134/100 H Blood Pressure Mean [Left Arm] 111 02 Sat by Pulse Oximetry 95 96 99 Oxygen Delivery Method Nasal Cannula Room Air Nasal Cannula Oxygen Flow Rate (LPM) 3 03/27/24 09:31 03/27/24 10:01 03/27/24 10:31 Temperature Temperature Source Pulse Rate 50 L 52 L 58 L Pulse Rate [Left] Respiratory Rate 13 13 12 Blood Pressure 148/77 H 143/73 H 136/67 Blood Pressure [Left Arm] Blood Pressure Mean [Left Arm] 02 Sat by Pulse Oximetry 98 99 98 Oxygen Delivery Method Room Air Nasal Cannula Nasal Cannula Oxygen Flow Rate (LPM) Lab Data Lab Results 03/27/24 07:43: WBC 8.6, RBC 5.36, Hgb 14.7, Hct 47.9 H, MCV 89.4, MCH 27.4, MCHC 30.7 L, RDW 19.2 H, Plt Count 182, MPV 11.0 H, Neut % (Auto) 67.9, Lymph % (Auto) 17.6, Cuming % (Auto) 10.9 H, Eos % (Auto) 2.1, Baso % (Auto) 0.9, Neut # (Auto) 5.9, Lymph # (Auto) 1.5, Cuming # (Auto) 0.9, Eos # (Auto) 0.2, Baso # (Auto) 0.1, PT 10.1, INR 0.91, APTT 27.6, Sodium 138, Potassium 4.6, Chloride 94 L, Carbon Dioxide 40 H, Anion Gap 8.6, BUN 32 H, Creatinine 1.10 H, Estimated Creat Clear 37, Estimated GFR 49 L, Est GFR ( Amer) 59, Glucose 64 L, Calcium 9.0, Total Bilirubin 0.6, AST 39 H, ALT 18, Alkaline Phosphatase 64, Total Protein 7.8, Albumin 4.3, Globulin 3.5 H, Albumin/Globulin Ratio 1.2 Orders (Tests/Meds): ED MEDICATIONS Discontinued Medications Generic Name Dose Route Start Last Admin Trade Name Freq PRN Reason Stop Dose Admin Acetaminophen 1,000 mg 03/27/24 11:07 03/27/24 11:23 Acetaminophen 500mg Tab PO 03/27/24 11:08 1,000 mg ONCE ONE Administration Iopamidol 100 ml 03/27/24 08:16 03/27/24 08:18 Iopamidol-370 (76%);100ml Bottle IV 03/27/24 08:17 100 ml ONCE ONE Administration Iopamidol 60 ml 03/27/24 08:16 03/27/24 08:18 Iopamidol-370 (76%);100ml Bottle IV 03/27/24 08:17 60 ml ONCE ONE Administration Methocarbamol 750 mg 03/27/24 11:08 03/27/24 11:23 Methocarbamol 500mg Tablet PO 03/27/24 11:09 750 mg ONCE ONE Administration Oxycodone HCl 5 mg 03/27/24 10:14 03/27/24 10:23 Oxycodone 5mg Immediate Release Tablet PO 03/27/24 10:15 5 mg ONCE ONE Administration Sodium Chloride 50 ml 03/27/24 08:16 03/27/24 08:18 0.9 % Sodium Chloride 50 Ml Vial IV 03/27/24 08:17 50 ml ONCE ONE Administration Sodium Chloride 10 ml 03/27/24 08:16 03/27/24 08:18 Sodium Chloride 0.9% 10ml Syr (Rad Only) IV 03/27/24 08:17 10 ml ONCE ONE Administration Sodium Chloride 30 ml 03/27/24 08:16 03/27/24 08:18 0.9 % Sodium Chloride 50 Ml Vial IV 03/27/24 08:17 30 ml ONCE ONE Administration ORDERS Category Date Time Status CT angio abdomen pelvis Stat Cat Scan 03/27/24 07:[address] angio chest - dissection Stat Cat Scan 03/27/24 07:[address] angio head Stat Cat Scan 03/27/24 07:[address] angio neck Stat Cat Scan 03/27/24 07:[address] cervical spine wo con Stat Cat Scan 03/27/24 07:[address] head/brain wo con Stat Cat Scan 03/27/24 07:[address] lumbar spine wo con Stat Cat Scan 03/27/24 07:[address] thoracic spine wo con Stat Cat Scan 03/27/24 07:18 Completed Fibula/tibia XR right 2 views [XR tibia fibula RT 2V] Exams 03/27/24 07:17 Completed Stat Knee XR left 3 views [XR knee LT 3V] Stat Exams 03/27/24 07:17 Completed XR chest portable Stat Exams 03/27/24 07:16 Completed XR knee RT 3V Stat Exams 03/27/24 07:17 Completed XR pelvis 1-2V Stat Exams 03/27/24 07:16 Completed CBC w/Auto Diff [Complete Blood Count Auto Diff] Stat Lab 03/27/24 07:43 Completed CMP [Comprehensive Metabolic Panel] Stat Lab 03/27/24 07:43 Completed PT INR [Prothrombin Time INR] Stat Lab 03/27/24 07:43 Completed PTT [Activated Partial Thrombo Time] Stat Lab 03/27/24 07:43 Completed Medical Decision Narrative: 73-year-old female with history of coronary artery disease, lymphedema, obesity, hypertension hyperlipidemia, A-fib on Eliquis presents after falling out of bed, landing on her face, complaining of facial pain abdominal pain and knee pain. History was obtained via interactive discussion with patient, EMS, chart review. On arrival, patient is [afebrile, hemodynamically stable, satting appropriately, alert, oriented x4, GCS 15], moving all extremities spontaneously. Full physical exam performed and significant for swelling to the lips, tenderness to the abdomen and knees bilaterally Differential includes but is not limited to intracranial trauma intrathoracic trauma intra-abdominal trauma spine trauma extremity trauma. Workup initiated including trauma workup with labs, radiographs and CTAs. At this time care handed off to oncoming physician. Felipe: On my assumption of care, patient receiving her CT scans per trauma evaluation documented above. On my personal evaluation of CT scans, findings significant for acute versus subacute T12 compression fracture without significant retropulsion or height loss. Upon reevaluation, patient has no midline spinal tenderness leading to a suggestion of subacute T12 fracture. Other findings considered chronic and visible on prior CT scans. CXR, pelvis XR, knee XR bilaterally reviewed by me and negative for fracture or malalignment. Patient's laboratory evaluation negative for actionable findings at this time. Patient ambulatory at baseline and was able to ambulate in the emergency department. Patient advised that she will be increasingly sore over the next few days. Patient prescribed Robaxin and advised to also take Tylenol. All questions answered and patient stable for discharge at this time. Leda Wang MD Procedures <Alvarez Gibbs MD - Last Filed: 03/27/24 08:03> Risk/Benefits of Procedure(s) Were Explained: Yes Critical Care <Alvarez Gibbs MD - Last Filed: 02/20/25 08:03> Critical Care Time Critical Care Time: Yes Attestation: On 03/27/24, the high probability of a clinically significant, sudden or life threatening deterioration of the following system(s) required my full and direct attention, intervention and personal management. The time I documented below is in addition to time spent performing reported procedures but includes the following listed in this critical care notation. Total Time Total Critical Care Time: 35
--- NOTE | 2024-03-27 07:31 | PC.NURSE ---
pt is alert and oriente. top dentures noted in palce @ this time. She complains of brown knee pain as well as lip pain. abd is round and nontender. raiology @ bedside
--- NOTE | 2024-03-27 07:48 | PC.NURSE ---
ok per md to scan pt without waiting on labs. radiology called.
[2024-03-27 07:57] LABS: Basophils # 0.1 K/mm3 (0-0.2); Basophils % 0.9 % (0.1-2.0); Eosinophils # 0.2 K/mm3 (0.0-0.4); Eosinophils % 2.1 % (0.1-12.0); Hematocrit 47.9 % (37.0-47.0); Hemoglobin 14.7 g/dL (12.2-16.2); Lymphocytes # 1.5 K/mm3 (0.7-4.5); Lymphocytes % 17.6 % (10-50); Mean Corpuscular HGB Conc 30.7 g/dL (31.8-35.4); Mean Corpuscular Hemoglobin 27.4 pg (27.0-31.2); Mean Corpuscular Volume 89.4 fl (81-99); Monocytes # 0.9 K/mm3 (0.1-1.0); Monocytes % 10.9 % (1.7-9.3); Neutrophils # 5.9 K/mm3 (1.8-7.8); Neutrophils % 67.9 % (37.0-80.0); Platelet Count 182 K/mm3 (142-424); Red Blood Count 5.36 M/mm3 (4.20-5.40); Red Cell Distribution Width 19.2 % (11.5-17.5); White Blood Count 8.6 K/mm3 (4.8-10.8)
[2024-03-27 08:09] LABS: Activated Partial Thrombo Time 27.6 seconds (22.5-28.5); INR 0.91 (0.9-1.1); Prothrombin Time 10.1 seconds (9.2-12.1)
[2024-03-27 08:12] LABS: Albumin Level 4.3 g/dl (3.5-5.0); Chloride 94 mmol/L (98-107); Potassium 4.6 mmoL/L (3.5-5.1); Sodium 138 mmol/L (136-145)
[2024-03-27 08:15] LABS: Alanine Aminotransferase 18 U/L (12-78); Albumin/Globulin Ratio 1.2 (1.1-1.8); Alkaline Phosphatase 64 U/L (38-126); Anion Gap 8.6 mEq/L (5-15); Aspartate Amino Transferase 39 U/L (14-36); Bilirubin,Total 0.6 mg/dl (0.2-1.3); Blood Urea Nitrogen 32 mg/dl (7-17); Carbon Dioxide 40 mmol/L (22.0-30.0); Creatinine Clearance Estimated 37 mL/min (50-200); Estimated Glomerular Filt Rate 49 ml/min (>60); GFR (African American) 59 ML/MIN (>60); Globulin 3.5 g/dL (1.3-3.2); Glucose 64 mg/dl (74-100); Total Protein,Serum 7.8 g/dl (6.3-8.2)
[2024-03-27] MEDS: 0.9 % SODIUM CHLORIDE 50 ML VIAL 30 ML IV (08:18)
[2024-03-27] MEDS: 0.9 % SODIUM CHLORIDE 50 ML VIAL IV (08:18)
[2024-03-27] MEDS: IOPAMIDOL-370 (76%);100ML BOTTLE 60 ML IV (08:18)
[2024-03-27] MEDS: SODIUM CHLORIDE 0.9% 10ML SYR (RAD ONLY) 10 ML IV (08:18)
[2024-03-27] MEDS: IOPAMIDOL-370 (76%);100ML BOTTLE 100 ML IV (08:18)
--- NOTE | 2024-03-27 09:11 | PC.NURSE ---
I rounded on the pt. She is resting with her eyes closed at this time. call cordero in reach.
[2024-03-27] MEDS: OXYCODONE 5MG IMMEDIATE RELEASE TABLET 5 MG PO (10:23)
--- NOTE | 2024-03-27 11:03 | PC.NURSE ---
pt was able to ambulate in room with sba from nursing staff. she complains of soreness but did well.
[2024-03-27] MEDS: METHOCARBAMOL 500MG TABLET 750 MG PO (11:23)
[2024-03-27] MEDS: ACETAMINOPHEN 500MG TAB 1000 MG PO (11:23)
--- NOTE | 2024-03-27 11:40 | PC.NURSE ---
called [facility]
--- NOTE | 2024-03-27 11:50 | PC.NURSE ---
report called to [facility]
--- NOTE | 2024-03-27 12:01 | PC.NURSE ---
I rounded on the pt. She c/o restlessness and pain. I notified . no new orders received. no other needs voiced. call cordero in reach.
--- NOTE | 2024-03-27 12:38 | PC.NURSE ---
pt was given a soda and bag of chips at this time
== END 2024-03-27 13:35 | disposition home or self-care (01) ==
PROVIDERS: Emergency Medicine; Emergency Provider Student in an Organized Health Care Education/Training Program
DX: R10.9 Unspecified abdominal pain (principal); M25.561 Pain in right knee; M25.562 Pain in left knee; G89.11 Acute pain due to trauma; R22.0 Localized swelling, mass and lump, head; G50.1 Atypical facial pain; W06.XXXA Fall from bed, initial encounter; Y93.9 Activity, unspecified; Y92.9 Unspecified place or not applicable
CPT/HCPCS: 70450; 70496; 70498; 71045; 71275; 72125; 72128; 72131; 72170; 73562; 73590; 74174; 80053; 85025; 85610; 85730; 93005; 99291; Q9967

== ENCOUNTER 2024-04-04 10:00 | Outpatient (RCR) | payer MEDICARE, MEDICAID, SELFPAY ==
--- NOTE | 2024-03-20 14:01 | HMH.PTOPWND ---
Rehab Outpt Wound Evaluation Rehab OP Wound Evaluation Start: 03/20/24 13:15 Freq: Status: Active Protocol: Document 03/20/24 13:45 DENYS (Rec: 03/20/24 14:01 PHORRACHELLE [id number]) E-signed By Javon Palacios, PT Subjective/History History History This is the initial PT lymphedema eval for Rosalina Sena, 73 yowf who presents with c/o B LE edema for ~ 20 yrs, worse x ~ 1 yr this episode. Pt currently resides in a SNF facility and uses a w /c for primary mode of mobility. She reports increased pain, numbness, and swelling in B LE, although she also endorses chronic edema as noted above. Significant erythema and pitting edema identified during initial examination. She also has PMH of fibromyalgia, morbid obesity, CAD with stents, COPD , DM, anxiety, CVI, NARCISO, HTN, HLD, a-fib, CHF, anemia, psoriasis, bladder surgery x 2 , KAIN, colon surgery. Subjective Subjective Pt reports 8/10 pain at this time in B LE, she also reports intermittently worsening neuropathy to B LE from knees distally. 3/4 TTP noted to B lower legs. Severe blanchable erythema and hemosiderin staining noted. 3+ pitting edema to B lower legs. No current open wounds, but she has suffered from venous stasis ulcers in the past. Lymphedema Eval Classification of Lymphedema Secondary Lymphedema Yes: mult. co-morbidities Stemmer's sign Stemmer's Sign yes Stage of Lymphedema Lymphedema stages Stage II (Pitting edema, increased fibrosis w/ decreased pitting) Skin Changes Dry Skin Yes Taut, Shiny Skin Yes Skin Folds Yes Hyperkeratosis Yes Redness Yes Brittle Uneven Nails Yes Discoloration of Skin Yes Other Changes Yes Pain Scale Pain Scale (0-10) 8 Affected Extremities Areas Affected by Lymphedema/Edema Right Lower Extremity,Left Lower Extremity Lower Extremity Measurements Right MTP Measurement (cm) 23.7 Heel Measurement (cm) 33.9 10 cm Proximal to Lateral Malleoli 34.8 Measurement (cm) 20 cm Proximal to Lateral Malleoli 40.8 Measurement (cm) 30 cm Proximal to Lateral Malleoli 46.1 Measurement (cm) 40 cm Proximal to Lateral Malleoli 0 Measurement (cm) 50 cm Proximal to Lateral Malleoli 0 Measurement (cm) 60 cm Proximal to Lateral Malleoli 0 Measurement (cm) Lower Extremity Measurement Total (cm) 179.3 Left MTP Measurement (cm) 23.5 Heel Measurement (cm) 34.8 10 cm Proximal to Lateral Malleoli 34.4 Measurement (cm) 20 cm Proximal to Lateral Malleoli 42.5 Measurement (cm) 30 cm Proximal to Lateral Malleoli 48.3 Measurement (cm) 40 cm Proximal to Lateral Malleoli 0 Measurement (cm) 50 cm Proximal to Lateral Malleoli 0 Measurement (cm) 60 cm Proximal to Lateral Malleoli 0 Measurement (cm) Lower Extremity Measurement Total (cm) 183.5 Wound Problems/Impairments Impairments Problems/Impairmments Palpation Tenderness,Impaired Range of Motion,Impaired Strength,Impaired Endurance, Impaired Transfers,Impaired Gait Pattern,Impaired Walking, Impaired Standing,Impaired Sitting,Impaired Shower/ Bathing,Increased Edema, Lymphedema Present,Subjective C/O Pain,Impaired Self Care/ Self Management Prognosis Rehab Potential Fair Comment Skilled therapy is indicated to reduce overall edema burden in order to return pt to PLOF . Multiple co-morbid conditions that all likely result in worsening edema of the lower legs combine to make conservative treatment difficult. 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 Number of Weeks 8 Decreased Palpation Tenderness Yes: 1/4 B lower legs Decrease Edema Yes: 1+ pitting edema to B lower legs Decrease Subjective C/O Pain Yes: 5/10 B lower legs Patient to be Ind w/ HEP Yes Patient to Understand Lymphedema Yes Treatment and Exercises Decrease Girth Measurments by (cm) Yes: B LE total by 10 cm ea Outpatient Therapy Plan of Care Treatment Plan May Include Therapeutic Exercise Including Home Yes Exercise Program Manual Therapy Techniques Yes Neuromuscular Re-education Yes Therapeutic Activities to Return to Yes Previous Functional/Work Level ADL/Self Care Education Yes Orthotics/Bracing/Splinting Yes Manual Lymphatic Drainage Yes Eval/Re-Eval Yes Frequency Times per week 2 Duration Number of Weeks 8 Addendums This patient is a candidate for social No or vocational rehab? Patient/Guardian verbally acknowledges Yes understanding of treatment program and consents to further treatment? Patient/Guardian verbally acknowledges Yes understanding of diagnosis, prognosis and goals for treatment? Eval Complexity PT Charges 14583 - High Complexity PHYSICIAN CERTIFICATION: I certify the specified therapy services for Rosalina Sena are required, authorized, and reviewed every 30 days.
== END 2024-04-04 23:59 | disposition home or self-care (01) ==
LOC: PT 10:00
PROVIDERS: PCP Internal Medicine; Visit Provider Internal Medicine Pulmonary Disease
DX: M79.89 Other specified soft tissue disorders (principal)
CPT/HCPCS: 97140; 97163

== ENCOUNTER 2024-04-30 09:00 | Outpatient (RCR) | payer MEDICARE, MEDICAID, SELFPAY ==
--- NOTE | 2024-04-25 16:09 | HMH.RHREAS ---
Rehab Reassessment Rehab OP Re-assessment Start: 04/14/24 15:48 Freq: Status: Active Protocol: Document 04/25/24 16:01 DENYS (Rec: 04/25/24 16:09 PHOSUSAN [id number]) E-signed By Javon Palacios PT Rehab Re-assessment Subjective Subjective Pt reports she has less tenderness in B lower legs and she feels they are a little bit less swollen. Objective Objective Notes Edema: B lower legs 2+ pitting edema throughout. Erythema: Moderate erythema to B lower legs with continues hemosiderin staining noted. Wounds: All wounds on B lower legs have fully epithelialized at this time. No open sore noted. TTP: 03/11 B lower legs. Pain: 07/15 B lower legs. Assessment Progress Assessment Progressing as Expected Assessment Notes Pt has shown significant improvements in B LE pitting edema, pain, and tenderness to palpation in vs initial evaluation. She continues to need further decreased edema to aid return to PLOF. Awaiting compression garments and home lymphedema pump. Pt has tried and failed conservative management including consistent compression to B lower legs, daily ther-ex per her report, and elevation of B LE x greater than 4 wks. Patient goals met ST/4 LT Plan Plan Continue per initial POC. Frequency of Therapy 2 x/wk Duration of therapy 4 wks Time and Billing Re-Eval Time 11 Re-Eval Billing Units 0 Charge for PT reassessment? Yes PHYSICIAN CERTIFICATION: I certify the specified therapy services for Rosalina Sena are required, authorized, and reviewed every 30 days.
== END 2024-04-30 23:59 | disposition home or self-care (01) ==
LOC: PT 09:00
PROVIDERS: Visit Provider Internal Medicine Pulmonary Disease
DX: M79.89 Other specified soft tissue disorders (principal)
CPT/HCPCS: 97140; 97164

== ENCOUNTER 2024-05-13 13:00 | Outpatient (RCR) | payer MEDICARE, MEDICAID, SELFPAY | END 2024-05-22 23:59 | disposition home or self-care (01) | LOC: PT 13:00 | PROVIDERS: Visit Provider Internal Medicine Pulmonary Disease | DX: M79.89 Other specified soft tissue disorders (principal) | CPT/HCPCS: 97140 ==

== ENCOUNTER 2024-05-22 15:04 | Emergency (ER) | payer MEDICARE, MEDICAID, SELFPAY ==
[2024-05-22 15:10] VITALS: BP 123/85; PULSE 65; RESP 20; TEMP 36.6; O2SAT 90; BMI 39.6
[2024-05-22 15:19] VITALS: BMI 39.6
[2024-05-22] MEDS: ONDANSETRON 4MG ODT 4 MG SL (15:22)
[2024-05-22] MEDS: MORPHINE 4MG/ML SYRINGE 4 MG IM (15:23)
[2024-05-22] MEDS: PROMETHAZINE HCL 25MG/ML 1ML VIAL 25 MG IM (17:09)
[2024-05-22] MEDS: OXYCODONE 5MG IMMEDIATE RELEASE TABLET 5 MG PO (17:26)
[2024-05-22 18:57] LABS: Basophils # 0.1 K/mm3 (0-0.2); Eosinophils # 0.1 K/mm3 (0.0-0.4); Hematocrit 42.8 % (37.0-47.0); Hemoglobin 13.7 g/dL (12.2-16.2); Lymphocytes # 1.3 K/mm3 (0.7-4.5); Lymphocytes % 10.8 % (10-50); Mean Corpuscular Hemoglobin 29.3 pg (27.0-31.2); Mean Corpuscular Volume 91.5 fl (81-99); Mean Platelet Volume 11.2 fl (7.4-10.4); Monocytes % 8.6 % (1.7-9.3); Neutrophils # 8.8 K/mm3 (1.8-7.8); Neutrophils % 76.4 % (37.0-80.0); Nucleated Red Blood Cells # 0 10^3/uL; Nucleated Red Blood Cells % 0 %; Platelet Count 204 K/mm3 (142-424); Red Blood Count 4.68 M/mm3 (4.20-5.40); Red Cell Distribution Width 16.3 % (11.5-17.5); Red Cell Distribution Width-SD 55.1 fL; White Blood Count 11.5 K/mm3 (4.8-10.8)
[2024-05-22 19:14] LABS: Activated Partial Thrombo Time 30.2 seconds (22.8-30.6); Albumin Level 4.1 g/dl (3.5-5.0); Chloride 91 mmol/L (98-107); INR 0.94 (0.9-1.1); Prothrombin Time 10.6 seconds (10.1-12.5); Sodium 137 mmol/L (136-145)
[2024-05-22 19:15] LABS: Potassium 4.6 mmoL/L (3.5-5.1)
[2024-05-22 19:17] LABS: Alanine Aminotransferase 29 U/L (12-78); Albumin/Globulin Ratio 1.2 (1.1-1.8); Alkaline Phosphatase 107 U/L (38-126); Aspartate Amino Transferase 57 U/L (14-36); Bilirubin,Total 0.3 mg/dl (0.2-1.3); Blood Urea Nitrogen 30 mg/dl (7-17); Creatine Kinase 169 U/L (30-135); Creatinine Clearance Estimated 68 mL/min (50-200); Estimated Glomerular Filt Rate 44 ml/min (>60); GFR (African American) 53 ML/MIN (>60); Globulin 3.4 g/dL (1.3-3.2); Glucose 176 mg/dl (74-100); Total Protein,Serum 7.5 g/dl (6.3-8.2)
[2024-05-22 19:18] LABS: Lactic Acid 0.8 mmol/L (0.7-2.1)
[2024-05-22 19:25] LABS: Anion Gap 14.6 mEq/L (5-15); Carbon Dioxide 36 mmol/L (22.0-30.0)
--- NOTE | 2024-05-22 20:24 | PC.NURSE ---
pt out of room for testing. [facility] calls to get patient update made aware of ER status pending more test results.
--- NOTE | 2024-05-22 20:26 | PC.NURSE ---
Pt back from CT scan via stretcher
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
--- NOTE | 2024-05-22 21:46 | PC.NURSE ---
Spoke with [facility] to make them aware that we were unable to get the CT
--- NOTE | 2024-05-22 22:05 | PC.NURSE ---
[facility] called for transfer at [id number]
[2024-05-22] MEDS: HUM PROTHROMBIN CPLX IV (23:30)
[2024-05-22] MEDS: [UNRECOGNIZED DRUG - OTHER] IV (23:30)
--- NOTE | 2024-05-22 23:46 | PC.NURSE ---
2200- Late entry. Report called to Page LEO at [facility]
--- NOTE | 2024-05-22 23:46 | PC.NURSE ---
0640- Pharmacy contacte and spoke with Alvin Kelley to obtain concentration regarding K-Centra administration. 5000 Units max due to patient weight. 8.4ml/min coming out to 504 ml/hr verified with Dr Tsang.
--- NOTE | 2024-05-22 23:48 | PC.NURSE ---
20g Left and Right biceps infiltrated. 22g Left shoulder started per Amilcar LEO. Medication began again at a slower rate due to size of angiocath.
[2024-05-22 23:49] VITALS: BP 134/68; PULSE 52; RESP 18; TEMP 36.6; O2SAT 96
--- NOTE | 2024-05-28 18:35 | PC.NURSE ---
I spoke with Gem at [facility] relaying that the pts wheelchair and oxygen has been here since d/c. She states she will try to come pick it up this evening.
== END 2024-05-22 23:55 | disposition short-term general hospital (02) ==
PROVIDERS: Emergency Provider Emergency Medicine
DX: S80.12XA Contusion of left lower leg, initial encounter (principal); R11.0 Nausea; I89.0 Lymphedema, not elsewhere classified; Z79.01 Long term (current) use of anticoagulants; W22.8XXA Striking against or struck by other objects, initial encounter
CPT/HCPCS: 80053; 82550; 83605; 85025; 85610; 85730; 96372; 96374; 99291; J2270; J2550; J7168; Q0162

== ENCOUNTER 2024-06-27 05:23 | Emergency (ER) | payer MEDICARE, MEDICAID, SELFPAY ==
[2024-06-27 05:27] VITALS: BP 141/97; PULSE 90; RESP 18; TEMP 37.1; O2SAT 96; BMI 38.6
[2024-06-27 05:31] VITALS: BP 145/88; PULSE 79; O2SAT 99
--- NOTE | 2024-06-27 05:42 | ED_ITS ---
Discharge Plan Disposition Patient Disposition: Xfer [facility] Condition: Good Prescriptions Prescriptions: No Action bumetanide 2 mg tablet 2 mg PO BID Qty: 60 3RF pregabalin 75 mg capsule 75 mg PO TID (DME) BD AutoShield Duo Pen Needle 30 gauge x 3/16 needle See Rx Instructions .ROUTE .MEDSUPPLY Qty: 100 Rx Instructions: As directed terconazole 0.4 % cream 1 appful vaginal HS 7 Days Qty: 45 0RF estradiol [Estrace] 0.01 % (0.1 mg/gram) cream 1 appful vaginal DAILY Qty: 42.5 0RF Rx Instructions: for 14 days ergocalciferol (vitamin D2) 1,250 mcg (50,000 unit) capsule 1,250 mcg PO DIRECTED Patient Comments: TAKE 1 CAPSULE BY MOUTH EVERY TWO WEEKS (TWICE A MONTH) Rx Instructions: EVERY OTHER WEEK Mounjaro 5 mg/0.5 mL pen injector 5 mg SQ WEEKLY albuterol sulfate 90 mcg/actuation HFA aerosol inhaler 2 puff INHALATION Q4HP PRN (Reason: Shortness Of Breath Or Wheezing) multivitamin Tablet 1 tab PO DAILY omeprazole 40 mg Capsule,Delayed Release(Dr/Ec) 40 mg PO HS icosapent ethyl [Vascepa] 1 gram Capsule 1 g PO BID docusate sodium 100 mg Tablet 100 mg PO BID ferrous sulfate 324 mg (65 mg iron) Tablet,Delayed Release (Dr/Ec) 324 mg PO DAILY Eliquis 5 mg Tablet 5 mg PO BID nitroglycerin 0.4 mg Tablet, Sublingual 0.4 mg SUBLINGUAL Q5MINP PRN (Reason: Chest Pain) Rx Instructions: do not exceed 3 doses per episode insulin lispro 100 unit/mL Insulin Pen 0 sliding scale dose SQ ACHS Rx Instructions: 101-150 3 UNITS 151-200 4 UNITS 201-250 6 UNITS 251-300 9 UNITS 301-350 12 UNITS 351-400 15 UNITS albuterol sulfate 2.5 mg /3 mL (0.083 %) Solution For Nebulization 2.5 mg inhalation Q4HP PRN (Reason: shortness of air or wheezing) acetaminophen 500 mg Tablet 500 mg PO AC buspirone 10 mg tablet 10 mg PO TID paroxetine HCl [Paxil] 40 mg Tablet 40 mg PO HS spironolactone 50 mg tablet 50 mg PO DAILY rosuvastatin 10 mg tablet 10 mg PO HS Trelegy Ellipta 100-62.5-25 mcg blister with device 1 inh INHALATION DAILY polyethylene glycol 3350 17 gram/dose powder 17 g PO DAILY trazodone 50 mg Tablet 50 mg PO HS loratadine 10 mg tablet 10 mg PO DAILY diclofenac sodium 1 % gel 1 ea TOPICAL Q6 PRN (Reason: Pain) methocarbamol 750 mg tablet 750 mg PO QID Qty: 120 0RF clopidogrel 75 mg Tablet 75 mg PO DAILY levothyroxine 50 mcg Tablet 50 mcg PO DAILYDM ondansetron 4 mg Tablet,Disintegrating 4 mg PO Q8HP PRN (Reason: Nausea And Vomiting) insulin glargine [Lantus Solostar U-100 Insulin] 100 unit/mL (3 mL) Insulin Pen 14 unit SQ HS Jardiance 10 mg tablet 25 mg PO DAILY Activity Restrictions/Add. Instructions Additional Instructions/Restrictions: The 3 areas of bleeding within the wound wound were Bovie cauterized. The lateral aspect that was continuing to bleed had two absorbable mattress stitches placed which stopped the small pulsatile bleeding. Please keep pressure dressing on for today. Please follow-up with your primary care provider. Please return to the emergency department if you develop any new or worsening symptoms or become concerned for your health. Clinical Impressions Clinical Impression: Bleeding from wound Instructions Patient Instructions: DI for Laceration Repair Print Language Print Language: German Discharge ED Provider: Alvarez Gibbs Adult HPI General Chief complaint: Wound/Laceration Stated complaint: Bleeding Wound Time Seen by Provider: 06/27/24 05:25 Mode of Arrival: EMS Source of Information: Patient and EMS Description of Symptoms (Recalled from ER Triage Doc. by RN): patient from [facility] for left leg wound that will not stop bleeding. Wound was debrided yesterday. Patient does take Plavix. History of Present Illness HPI narrative: 73-year-old female with history of lymphedema, hypertension hyperlipidemia coronary artery disease, A-fib, patient is on anticoagulants, presents for recurrent bleeding to a wound to the left lower extremity. She was seen here last month for a large hematoma that would not stop bleeding. It ultimately required transfer and OR debridement and cauterization at the [facility]. She has been doing well at her nursing facility since then, but the wound was debrided again yesterday. Last night it started bleeding and they wer e not able to get it to stop with a pressure dressing. Patient denies any fever or other symptoms. Related Data Home Medications ?Medication ?Instructions ?Recorded ?Confirmed ergocalciferol (vitamin D2) 1,250 1,250 mcg PO DIRECTED 08/12/20 04/02/24 mcg (50,000 unit) capsule albuterol sulfate 90 mcg/actuation 2 puff inhalation Q4HP PRN 12/18/22 04/02/24 aerosol inhaler Shortness Of Breath Or Wheezing apixaban 5 mg tablet (Eliquis) 5 mg PO BID 12/18/22 04/02/24 docusate sodium 100 mg tablet 100 mg PO BID 12/18/22 04/02/24 ferrous sulfate 324 mg (65 mg 324 mg PO DAILY 12/18/22 04/02/24 iron) tablet,delayed release icosapent ethyl 1 gram capsule 1 g PO BID 12/18/22 04/02/24 (Vascepa) insulin lispro 100 unit/mL 0 sliding scale dose SQ ACHS 12/18/22 04/02/24 subcutaneous pen Diabetes multivitamin 1 tab PO DAILY 12/18/22 04/02/24 nitroglycerin 0.4 mg sublingual 0.4 mg sublingual Q5MINP PRN Chest 12/18/22 04/02/24 tablet Pain omeprazole 40 mg capsule,delayed 40 mg PO HS 12/18/22 04/02/24 release acetaminophen 500 mg tablet 500 mg PO AC 12/19/22 04/02/24 albuterol sulfate 2.5 mg/3 mL 2.5 mg inhalation Q4HP PRN 12/19/22 04/02/24 (0.083 %) solution for nebulization shortness of air or wheezing clopidogrel 75 mg tablet 75 mg PO DAILY 03/18/23 04/02/24 empagliflozin 10 mg tablet 25 mg PO DAILY 04/19/23 04/02/24 (Jardiance) insulin glargine 100 unit/mL (3 14 unit SQ HS Diabetes 04/19/23 04/02/24 mL) subcutaneous pen (Lantus Solostar U-100 Insulin) levothyroxine 50 mcg tablet 50 mcg PO DAILYDM 04/19/23 04/02/24 ondansetron 4 mg disintegrating 4 mg PO Q8HP PRN Nausea And 04/19/23 04/02/24 tablet Vomiting buspirone 10 mg tablet 10 mg PO TID 07/04/23 04/02/24 fluticasone fur. 100 mcg-umeclid 1 inh inhalation DAILY 08/13/23 04/02/24 62.5 mcg-vilant 25 mcg inhalat.powder (Trelegy Ellipta) paroxetine HCl 40 mg tablet (Paxil) 40 mg PO HS 08/13/23 04/02/24 rosuvastatin 10 mg tablet 10 mg PO HS 08/13/23 04/02/24 spironolactone 50 mg tablet 50 mg PO DAILY 08/13/23 04/02/24 polyethylene glycol 3350 17 17 g PO DAILY 08/14/23 04/02/24 gram/dose oral powder pen needle,diabetic dual safty 30 #100 ea 09/17/23 04/02/24 gauge x 3/16 (BD AutoShield Duo Pen Needle) pregabalin 75 mg capsule 75 mg PO TID 09/17/23 04/02/24 diclofenac sodium 1 % topical gel 1 ea topical Q6 PRN Pain 12/17/23 04/02/24 loratadine 10 mg tablet 10 mg PO DAILY 12/17/23 04/02/24 trazodone 50 mg tablet 50 mg PO HS 12/17/23 04/02/24 tirzepatide 5 mg/0.5 mL 5 mg SQ WEEKLY 03/11/24 04/02/24 subcutaneous pen injector (Heather) Previous Rx's ?Medication ?Instructions ?Recorded bumetanide 2 mg tablet 2 mg PO BID #60 tabs 04/30/23 estradiol 0.01% (0.1 mg/gram) 1 appful vaginal DAILY #42.5 grams 03/20/24 vaginal cream (Estrace) terconazole 0.4 % vaginal cream 1 appful vaginal HS 7 days #45 03/20/24 grams methocarbamol 750 mg tablet 750 mg PO QID #120 tabs 03/27/24 Allergies Allergy/AdvReac Type Severity Reaction Status Date / Time cephalexin Allergy Hives Verified 04/02/24 13:49 Penicillins Allergy Hives Verified 04/02/24 13:49 PFSH PFS Disclaimer: The information contained in this section may have been updated after the patient was seen, as this information can be updated by other users. Medical History Swelling of both lower extremities Coronary artery disease Cellulitis of left lower leg Itchy skin Nausea and vomiting in adult patient Acute on chronic respiratory failure with hypoxemia Accidental overdose Chronic respiratory failure with hypoxia and hypercapnia Lung nodule Rotator cuff arthropathy of right shoulder Acute anterior epistaxis Chronic hypoxemic respiratory failure Nodule of left lung Heart attack Encounter for screening for malignant neoplasm of lung COPD mixed type History of smoking 30 or more pack years Dyspnea Bilateral hearing loss due to cerumen impaction Encounter for removal of nasal packing CAD in [place] artery Cardiomyopathy Non-STEMI (non-ST elevated myocardial infarction) Right ventricular dilation Coronary artery disease HFrEF (heart failure with reduced ejection fraction) Pneumonia Diabetes mellitus, type 2 Iron deficiency anemia Pulmonary hypertension Osteoporosis Major depressive disorder Heart failure Depression Lymphedema Insomnia Class 2 obesity due to excess calories with body mass index (BMI) of 39.0 to 39.9 in adult Fibromyalgia Congestive heart failure Atrial fibrillation Anxiety HTN (hypertension) HLD (hyperlipidemia) COPD (chronic obstructive pulmonary disease) BMI 30.0-30.9,adult Osteoarthritis Callus of foot Paresthesia of both lower extremities Onychodystrophy Onychomycosis Diabetic foot Surgical History History of coronary artery stent placement History of bladder surgery H/O: hysterectomy H/O hernia repair Family History Other Diabetes Hyperlipidemia Hypertension No significant family history Social History Smoking Status: Former smoker tobacco type: cigarettes packs per day: 2 alcohol intake: never substance use type: denies use current occupational status: retired and disabled Travel in the last 8 weeks?: None housing: group home lives independently: No group home: Yes caffeine: Yes Other Medical History Have you received the Flu Vaccine for this season: No Have you received the Pneumonia Vaccine: Yes ROS Obtained: Yes All systems reviewed & no additional complaints except as documented Physical Exam General General appearance: alert and in no apparent distress Head Head exam: atraumatic and normocephalic Eye Eye exam: Present normal appearance, PERRL and EOMI ENT ENT exam: Present normal oropharynx and normal external ear exam Neck Neck exam: Present normal inspection and full ROM Chest Chest inspection: Present normal inspection and symmetric chest wall rise; Absent tenderness Respiratory Respiratory exam: Present normal lung sounds bilaterally; Absent respiratory distress Cardiovascular Cardiovascular exam: Present regular rate and normal rhythm Abdominal Exam Abdominal exam: Present soft; Absent distention, tenderness or guarding Extremities Exam Extremities exam: Present edema (Bilateral lower extremity lymphedema); Absent normal inspection (Approximately 10 cm diameter area of granulation tissue with 3 separate areas of venous oozing noted.) or joint swelling Back Exam Back exam: Present normal inspection; Absent tenderness Neurological Exam Neurological exam: Present alert and oriented X3; Absent motor sensory deficit Psychiatric Psychiatric exam: Present normal affect and normal mood Skin Skin exam: Present warm, dry and normal color Lymphatic Lymphatic Findings: no adenopathy Medical Decision Making Medical Records Medical records reviewed: Yes I reviewed the patient's medical records. Screening: Per USPSTF and CDC recommendations, given the prevalence of disease in our region, it is our hospital?s policy to screen for HIV and viral Hepatitis for all patients aged 18 and over and those with ongoing risk factors. Tj Inquiry Pt receiving controlled substance: No Tj was queried for this patient: No Vital Signs: 06/27/24 05:27 06/27/24 05:31 06/27/24 06:01 Temperature 98.7 F Temperature Source Oral Pulse Rate 79 Pulse Rate [Left] 90 Respiratory Rate 18 Blood Pressure 145/88 H 132/66 Blood Pressure [Right Arm] 141/97 H Blood Pressure Mean 111 Blood Pressure Mean [Right Arm] 111 Blood Pressure Source Blood Pressure Source [Right Arm] Automatic Cuff Blood Pressure Position Blood Pressure Position [Right Arm] Sitting 02 Sat by Pulse Oximetry 96 99 99 Oxygen Delivery Method Nasal Cannula Oxygen Flow Rate (LPM) 4 06/27/24 06:32 06/27/24 07:01 Temperature 98.8 F Temperature Source Oral Pulse Rate 88 Pulse Rate [Left] Respiratory Rate 18 Blood Pressure 187/76 H 140/63 Blood Pressure [Right Arm] Blood Pressure Mean Blood Pressure Mean [Right Arm] Blood Pressure Source Automatic Cuff Blood Pressure Source [Right Arm] Blood Pressure Position Sitting Blood Pressure Position [Right Arm] 02 Sat by Pulse Oximetry 99 Oxygen Delivery Method Nasal Cannula Oxygen Flow Rate (LPM) 4 Lab Data Lab results reviewed: Yes I reviewed the patient's lab results. Orders (Tests/Meds): ED MEDICATIONS Discontinued Medications Generic Name Dose Route Start Last Admin Trade Name Justyna PRN Reason Stop Dose Admin Acetaminophen 1,000 mg 06/27/24 05:26 06/27/24 05:44 Acetaminophen 500mg Tab PO 06/27/24 05:27 1,000 mg ONCE ONE Administration Lidocaine/Epinephrine 5 ml 06/27/24 06:20 06/27/24 06:35 Lidocaine 1% W/Epi 1:100,000 20ml Vial IJ 06/27/24 06:21 5 ml ONCE ONE Administration Morphine Sulfate 2 mg 06/27/24 05:26 06/27/24 05:43 Morphine 2mg/Ml Syringe IM 06/27/24 05:27 2 mg ONCE ONE Administration Ondansetron HCl 4 mg 06/27/24 05:26 06/27/24 05:44 Ondansetron 4mg Odt SL 06/27/24 05:27 4 mg ONCE ONE Administration Medical Decision Narrative: 73-year-old female with history of A-fib on anticoagulants, lymphedema, recent left lower extremity hematoma with debridement presents for bleeding from wound site after it was again debrided yesterday. History was obtained via interactive discussion with patient. On arrival, patient is [afebrile, hemodynamically sta ble, satting appropriately, alert, oriented x4, GCS 15], moving all extremities spontaneously. Full physical exam performed and significant for approximately 10 cm diameter area of granulation tissue with 3 separate spots of venous oozing. Differential diagnosis includes but limited to coagulopathy, symptomatic anemia, infection. Patient has normal vital signs and is otherwise well-appearing, no evidence of symptomatic anemia or infection at this time. Laboratory studies were considered but deemed unnecessary at this time given physical exam. The areas of bleeding were cauterized at bedside by me. The 2 medial sites were able to be cauterized relatively quickly. The lateral site did not cease bleeding with cauterization. In fact cauterization uncovered a small pulsatile bleeder. This was stopped with 2 horizontal mattress sutures using absorbable gut. After these interventions, patient was monitored for about half an hour and had no further bleeding. Hemostatic dressing was then applied as well as a pressure dressing. Patient was discharged back to her nursing facility in stable condition with return precautions. Procedures Risk/Benefits of Procedure(s) Were Explained: Yes Critical Care Critical Care Time Critical Care Time: No
[2024-06-27] MEDS: MORPHINE 2MG/ML SYRINGE 2 MG IM (05:43)
[2024-06-27] MEDS: ACETAMINOPHEN 500MG TAB 1000 MG PO (05:44)
[2024-06-27] MEDS: ONDANSETRON 4MG ODT 4 MG SL (05:44)
[2024-06-27 06:01] VITALS: BP 132/66; O2SAT 99
[2024-06-27 06:32] VITALS: BP 187/76; O2SAT 99
[2024-06-27] MEDS: LIDOCAINE 1% W/EPI 1:100,000 20ML VIAL 5 ML IJ (06:35)
[2024-06-27 07:01] VITALS: BP 140/63; PULSE 88; RESP 18; TEMP 37.1; O2SAT 97
== END 2024-06-27 07:25 ==
PROVIDERS: Emergency Provider Emergency Medicine
DX: S80.12XA Contusion of left lower leg, initial encounter (principal); I89.0 Lymphedema, not elsewhere classified; Z86.79 Personal history of other diseases of the circulatory system
CPT/HCPCS: 96372; 99285; J2004; J2270; Q0162

== ENCOUNTER 2024-06-30 14:26 | Outpatient (CLI) | payer MEDICARE, MEDICAID, SELFPAY ==
[2024-06-30 14:44] LABS: Basophils # 0.1 K/mm3 (0-0.2); Basophils % 0.6 % (0.1-2.0); Eosinophils # 0.3 Kmm3 (0.0-0.4); Eosinophils % 2.4 % (0.1-12.0); Hematocrit 29.9 % (37.0-47.0); Hemoglobin 9.3 g/dL (12.2-16.2); Immature Granulocytes # 0.17 10^3uL; Immature Granulocytes % 1.3 %; Lymphocytes # 1.3 K/mm3 (0.7-4.5); Lymphocytes % 9.8 % (10-50); Mean Corpuscular HGB Conc 31.1 g/dL (31.8-35.4); Mean Corpuscular Hemoglobin 29.3 pg (27.0-31.2); Mean Corpuscular Volume 94.3 fl (81-99); Mean Platelet Volume 11.3 fl (7.4-10.4); Monocytes % 7.5 % (1.7-9.3); Neutrophils # 10.5 K/mm3 (1.8-7.8); Neutrophils % 78.4 % (37.0-80.0); Nucleated Red Blood Cells # 0 10^3/uL; Nucleated Red Blood Cells % 0 %; Platelet Count 302 K/mm3 (142-424); Red Blood Count 3.17 M/mm3 (4.20-5.40); Red Cell Distribution Width 16.4 % (11.5-17.5); Red Cell Distribution Width-SD 56.9 fL; White Blood Count 13.4 K/mm3 (4.8-10.8)
== END 2024-06-30 23:59 | disposition home or self-care (01) ==
LOC: LAB.DROPOF 14:32
PROVIDERS: PCP Internal Medicine Adolescent Medicine; Visit Provider Internal Medicine Adolescent Medicine
DX: Z48.817 Encounter for surgical aftercare following surgery on the skin and subcutaneous tissue (principal)
CPT/HCPCS: 85025

== ENCOUNTER 2024-08-26 04:25 | Emergency (ER) | payer MEDICARE, MEDICAID, SELFPAY ==
--- NOTE | 2024-08-26 04:24 | CT_ITS ---
PROCEDURE INFORMATION: Exam: CT Lumbar Spine Without Contrast Exam date and time: 08/26/2024 4:58 AM Age: 73 years old Clinical indication: Injury or trauma; Additional info: Fall TECHNIQUE: Imaging protocol: Computed tomography of the lumbar spine without contrast. Radiation optimization: All CT scans at this facility use at least one of these dose optimization techniques: automated exposure control; mA and/or kV adjustment per patient size (includes targeted exams where dose is matched to clinical indication); or iterative reconstruction. COMPARISON: CT THORACIC SPINE WO CON 08/26/2024 4:55 AM FINDINGS: Bones/joints: No acute fracture. Normal height. Age appropriate alignment. No significant degenerative process. Soft tissues: Unremarkable. IMPRESSION: There is no significant traumatic injury of the lumbar spine.
--- NOTE | 2024-08-26 04:24 | CT_ITS ---
PROCEDURE INFORMATION: Exam: CT Head Without Contrast Exam date and time: 08/26/2024 4:51 AM Age: 73 years old Clinical indication: Injury or trauma; Additional info: Fall TECHNIQUE: Imaging protocol: Computed tomography of the head without contrast. Radiation optimization: All CT scans at this facility use at least one of these dose optimization techniques: automated exposure control; mA and/or kV adjustment per patient size (includes targeted exams where dose is matched to clinical indication); or iterative reconstruction. COMPARISON: CT ANGIO HEAD 03/27/2024 8:15 AM FINDINGS: Brain: There is no mass effect, midline shift, acute hemorrhage, extra-axial fluid collection or acute lobar infarct. Dystrophic calcification is noted in the deep right frontal white matter. Extensive hemispheric white matter hypodensity likely represents chronic microvascular ischemic change. Cerebral ventricles: No ventriculomegaly. Paranasal sinuses: Polypoid disease is noted in the floor of the left maxillary antrum. Mastoid air cells: Visualized mastoid air cells are well aerated. Orbital cavities: Patient is post bilateral cataract surgery. There is unchanged relatively symmetric engorgement of the superior ophthalmic veins which is indeterminate, could indicate chronic cavernous sinus pathology or intraorbital varix. Please correlate clinically. Bones: Unremarkable. No acute fracture. Soft tissues: Unremarkable. IMPRESSION: No acute intracranial process.
--- NOTE | 2024-08-26 04:24 | CT_ITS ---
PROCEDURE INFORMATION: Exam: CT Cervical Spine Without Contrast Exam date and time: 08/26/2024 4:53 AM Age: 73 years old Clinical indication: Injury or trauma; Additional info: Fall TECHNIQUE: Imaging protocol: Computed tomography of the cervical spine without contrast. Radiation optimization: All CT scans at this facility use at least one of these dose optimization techniques: automated exposure control; mA and/or kV adjustment per patient size (includes targeted exams where dose is matched to clinical indication); or iterative reconstruction. COMPARISON: CT CERVICAL SPINE WO CON 08/26/2024 4:53 AM FINDINGS: Bones: There is no evidence for acute cervical fracture. Stepwise probably degenerative anterior positioning of C2 relative to C3, C3 relative to C4 and C4 over C5 is noted measuring 1-2 mm at each level. There is reversal of the normal cervical lordosis. Spondylosis is present with disc ridging and osteophyte, uncovertebral spurring and facet arthropathy most notable at the C5-C6 and C6-C7 levels. There is no severe canal stenosis. Uncovertebral spurring causes neural foraminal narrowing worse on the left at C5-C6. Lungs: Lung apices are normal. Soft tissues: Unremarkable. IMPRESSION: No evidence for acute cervical fracture.
--- NOTE | 2024-08-26 04:24 | CT_ITS ---
PROCEDURE INFORMATION: Exam: CT Thoracic Spine Without Contrast Exam date and time: 08/26/2024 4:55 AM Age: 73 years old Clinical indication: Injury or trauma; Additional info: Fall TECHNIQUE: Imaging protocol: Computed tomography of the thoracic spine without contrast. Radiation optimization: All CT scans at this facility use at least one of these dose optimization techniques: automated exposure control; mA and/or kV adjustment per patient size (includes targeted exams where dose is matched to clinical indication); or iterative reconstruction. COMPARISON: CT CERVICAL SPINE WO CON 08/26/2024 4:53 AM FINDINGS: Bones/joints: Compression deformity of the inferior aspect of the T12 vertebral body. Remaining vertebral bodies are normal height. There is no other fracture. Soft tissues: Unremarkable. IMPRESSION: 1. Chronic T12 compression fracture. 2. No significant traumatic injury of the thoracic spine.
--- NOTE | 2024-08-26 04:24 | XR_ITS ---
PROCEDURE INFORMATION: Exam: XR Right Shoulder Exam date and time: 08/26/2024 5:06 AM Age: 73 years old Clinical indication: Pain; Shoulder; Right; Additional info: Fall, shoulder pain TECHNIQUE: Imaging protocol: Radiologic exam of the right shoulder. Views: 2 or more views. COMPARISON: CR XR SHOULDER RT MIN 2V 06/07/2023 12:15 PM FINDINGS: Bones/joints: Normal. There is no fracture present. The shoulder joint appears well aligned. The acromioclavicular joint is unremarkable. The visualized ribs and lungs are unremarkable. Soft tissues: Normal. IMPRESSION: Unremarkable examination with no fracture or dislocation.
--- NOTE | 2024-08-26 04:28 | CT_ITS ---
PROCEDURE INFORMATION: Exam: CTA Abdomen and Pelvis With Contrast Exam date and time: 08/26/2024 5:02 AM Age: 73 years old Clinical indication: Injury or trauma; Additional info: Fall TECHNIQUE: Imaging protocol: Computed tomographic angiography of the abdomen and pelvis with contrast. Exam focused on the arteries. 3D rendering (Not supervised by radiologist): MIP and/or 3D reconstructed images were created by the technologist. Radiation optimization: All CT scans at this facility use at least one of these dose optimization techniques: automated exposure control; mA and/or kV adjustment per patient size (includes targeted exams where dose is matched to clinical indication); or iterative reconstruction. Contrast material: ISOVUE; Contrast volume: 80 ml; Contrast route: INTRAVENOUS (IV); COMPARISON: CT ANGIO ABDOMEN PELVIS 03/27/2024 8:20 AM FINDINGS: Aorta: No abdominal aortic aneurysm. No dissection. No rupture.. Celiac trunk and mesenteric arteries: No occlusion or significant stenosis. Renal arteries: No occlusion or significant stenosis. Right iliac arteries: No occlusion or significant stenosis. Left iliac arteries: No occlusion or significant stenosis. Liver: No mass. There is no liver laceration present. No cirrhosis. Gallbladder and biliary ducts: There are postsurgical changes from a cholecystectomy. Pancreas: No pancreatic ductal dilation. There is no laceration present. Spleen: There is no splenic laceration present. No splenomegaly. Adrenal glands: Normal. No mass. No laceration. Kidneys and ureters: No hydronephrosis. There is no renal laceration present. Stomach and bowel: Unremarkable. No obstruction. No mucosal thickening. Appendix: No evidence of appendicitis. Intraperitoneal space: Unremarkable. No free air. No significant fluid collection. Lymph nodes: Unremarkable. No enlarged lymph nodes. Urinary bladder: Unremarkable. No mass. Reproductive: Unremarkable as visualized. Bones/joints: No acute fracture. No dislocation. Soft tissues: Postsurgical changes from a previous ventral hernia repair. There is no evidence of recurrence or failure. IMPRESSION: 1. No significant traumatic injury to the abdomen or pelvis. 2. Normal vascular examination of the abdomen and pelvis. There is no aneurysm, dissection, occlusion, or significant stenosis. 3. Previous ventral abdominal hernia repair with no recurrence or failure.
--- NOTE | 2024-08-26 04:28 | CT_ITS ---
PROCEDURE INFORMATION: Exam: CTA Chest With Contrast Exam date and time: 08/26/2024 5:02 AM Age: 73 years old Clinical indication: Injury or trauma; Additional info: Fall TECHNIQUE: Imaging protocol: Computed tomographic angiography of the chest with contrast. Exam focused on the arteries. 3D rendering (Not supervised by radiologist): MIP and/or 3D reconstructed images were created by the technologist. Radiation optimization: All CT scans at this facility use at least one of these dose optimization techniques: automated exposure control; mA and/or kV adjustment per patient size (includes targeted exams where dose is matched to clinical indication); or iterative reconstruction. Contrast material: ISOVUE; Contrast volume: 80 ml; Contrast route: INTRAVENOUS (IV); COMPARISON: CT ANGIO CHEST 03/27/2024 8:20 AM FINDINGS: Pulmonary arteries: Normal. No pulmonary emboli. Aorta: Unremarkable. No aortic aneurysm. No aortic dissection. Lungs: Unremarkable. No consolidation. No masses. Pleural spaces: Unremarkable. No pneumothorax. No pleural effusion. Heart: The heart is moderately enlarged. Mediastinal space: There no mediastinal hematoma. Lymph nodes: Unremarkable. No enlarged lymph nodes. Bones/joints: Chronic sternal fracture. Chronic T12 compression fracture. No acute fracture. Multiple old anterior right rib fractures. Moderate degenerative changes of the right shoulder. Soft tissues: Unremarkable. IMPRESSION: 1. No evidence for a pulmonary embolism, aortic dissection, aortic aneurysm, or underlying pneumonia. 2. There is no significant traumatic injury seen. 3. Moderate cardiomegaly.
--- NOTE | 2024-08-26 04:29 | HMH.EDGENADL ---
Discharge Plan Disposition Patient Disposition: Xfer [facility] Prescriptions Prescriptions: No Action bumetanide 2 mg tablet 2 mg PO BID Qty: 60 3RF pregabalin 75 mg capsule 75 mg PO TID (DME) BD AutoShield Duo Pen Needle 30 gauge x 3/16 needle See Rx Instructions .ROUTE .MEDSUPPLY Qty: 100 Rx Instructions: As directed terconazole 0.4 % cream 1 appful vaginal HS 7 Days Qty: 45 0RF estradiol [Estrace] 0.01 % (0.1 mg/gram) cream 1 appful vaginal DAILY Qty: 42.5 0RF Rx Instructions: for 14 days ergocalciferol (vitamin D2) 1,250 mcg (50,000 unit) capsule 1,250 mcg PO DIRECTED Patient Comments: TAKE 1 CAPSULE BY MOUTH EVERY TWO WEEKS (TWICE A MONTH) Rx Instructions: EVERY OTHER WEEK Mounjaro 5 mg/0.5 mL pen injector 5 mg SQ WEEKLY albuterol sulfate 90 mcg/actuation HFA aerosol inhaler 2 puff INHALATION Q4HP PRN (Reason: Shortness Of Breath Or Wheezing) multivitamin Tablet 1 tab PO DAILY omeprazole 40 mg Capsule,Delayed Release(Dr/Ec) 40 mg PO HS icosapent ethyl [Vascepa] 1 gram Capsule 1 g PO BID docusate sodium 100 mg Tablet 100 mg PO BID ferrous sulfate 324 mg (65 mg iron) Tablet,Delayed Release (Dr/Ec) 324 mg PO DAILY Eliquis 5 mg Tablet 5 mg PO BID nitroglycerin 0.4 mg Tablet, Sublingual 0.4 mg SUBLINGUAL Q5MINP PRN (Reason: Chest Pain) Rx Instructions: do not exceed 3 doses per episode insulin lispro 100 unit/mL Insulin Pen 0 sliding scale dose SQ ACHS Rx Instructions: 101-150 3 UNITS 151-200 4 UNITS 201-250 6 UNITS 251-300 9 UNITS 301-350 12 UNITS 351-400 15 UNITS albuterol sulfate 2.5 mg /3 mL (0.083 %) Solution For Nebulization 2.5 mg inhalation Q4HP PRN (Reason: shortness of air or wheezing) acetaminophen 500 mg Tablet 500 mg PO AC buspirone 10 mg tablet 10 mg PO TID paroxetine HCl [Paxil] 40 mg Tablet 40 mg PO HS spironolactone 50 mg tablet 50 mg PO DAILY rosuvastatin 10 mg tablet 10 mg PO HS Trelegy Ellipta 100-62.5-25 mcg blister with device 1 inh INHALATION DAILY polyethylene glycol 3350 17 gram/dose powder 17 g PO DAILY trazodone 50 mg Tablet 50 mg PO HS loratadine 10 mg tablet 10 mg PO DAILY diclofenac sodium 1 % gel 1 ea TOPICAL Q6 PRN (Reason: Pain) methocarbamol 750 mg tablet 750 mg PO QID Qty: 120 0RF clopidogrel 75 mg Tablet 75 mg PO DAILY levothyroxine 50 mcg Tablet 50 mcg PO DAILYDM ondansetron 4 mg Tablet,Disintegrating 4 mg PO Q8HP PRN (Reason: Nausea And Vomiting) insulin glargine [Lantus Solostar U-100 Insulin] 100 unit/mL (3 mL) Insulin Pen 14 unit SQ HS Jardiance 10 mg tablet 25 mg PO DAILY Referrals Follow up/Referrals: Provider,Referral, MD [Primary Care Provider, Medical] - See instructions Activity Restrictions/Add. Instructions Additional Instructions/Restrictions: No evidence of traumatic injury noted on CT scans and x-rays. Clinical Impressions Clinical Impression: Acute shoulder pain, Acute hip pain Fall Qualifiers: Encounter type: initial encounter Qualified Code(s): W19.XXXA - Unspecified fall, initial encounter Print Language Print Language: Swedish Discharge ED Provider: Alvarez Gibbs Adult HPI General Chief complaint: Fall Stated complaint: fall Time Seen by Provider: 08/26/24 04:29 History of Present Illness HPI narrative: 73-year-old male with history of diabetes A-fib on blood thinner, hypertension, hyperlipidemia, usp patient, presents for fall. She reports that she felt like her legs gave out and she fell onto her right side. She is complaining of right hip pain right side pain and right shoulder pain. She reports that she struck her head and has a knot but had no bleeding. sHe denies any chest pain or shortness of breath or any preceding syncopal symptoms. Related Data Home Medications ?Medication ?Instructions ?Recorded ?Confirmed ergocalciferol (vitamin D2) 1,250 1,250 mcg PO DIRECTED 08/12/20 04/02/24 mcg (50,000 unit) capsule albuterol sulfate 90 mcg/actuation 2 puff inhalation Q4HP PRN 12/18/22 04/02/24 aerosol inhaler Shortness Of Breath Or Wheezing apixaban 5 mg tablet (Eliquis) 5 mg PO BID 12/18/22 04/02/24 docusate sodium 100 mg tablet 100 mg PO BID 12/18/22 04/02/24 ferrous sulfate 324 mg (65 mg 324 mg PO DAILY 12/18/22 04/02/24 iron) tablet,delayed release icosapent ethyl 1 gram capsule 1 g PO BID 12/18/22 04/02/24 (Vascepa) insulin lispro 100 unit/mL 0 sliding scale dose SQ ACHS 12/18/22 04/02/24 subcutaneous pen Diabetes multivitamin 1 tab PO DAILY 12/18/22 04/02/24 nitroglycerin 0.4 mg sublingual 0.4 mg sublingual Q5MINP PRN Chest 12/18/22 04/02/24 tablet Pain omeprazole 40 mg capsule,delayed 40 mg PO HS 12/18/22 04/02/24 release acetaminophen 500 mg tablet 500 mg PO AC 12/19/22 04/02/24 albuterol sulfate 2.5 mg/3 mL 2.5 mg inhalation Q4HP PRN 12/19/22 04/02/24 (0.083 %) solution for nebulization shortness of air or wheezing clopidogrel 75 mg tablet 75 mg PO DAILY 03/18/23 04/02/24 empagliflozin 10 mg tablet 25 mg PO DAILY 04/19/23 04/02/24 (Jardiance) insulin glargine 100 unit/mL (3 14 unit SQ HS Diabetes 04/19/23 04/02/24 mL) subcutaneous pen (Lantus Solostar U-100 Insulin) levothyroxine 50 mcg tablet 50 mcg PO DAILYDM 04/19/23 04/02/24 ondansetron 4 mg disintegrating 4 mg PO Q8HP PRN Nausea And 04/19/23 04/02/24 tablet Vomiting buspirone 10 mg tablet 10 mg PO TID 07/04/23 04/02/24 fluticasone fur. 100 mcg-umeclid 1 inh inhalation DAILY 08/13/23 04/02/24 62.5 mcg-vilant 25 mcg inhalat.powder (Trelegy Ellipta) paroxetine HCl 40 mg tablet (Paxil) 40 mg PO HS 08/13/23 04/02/24 rosuvastatin 10 mg tablet 10 mg PO HS 08/13/23 04/02/24 spironolactone 50 mg tablet 50 mg PO DAILY 08/13/23 04/02/24 polyethylene glycol 3350 17 17 g PO DAILY 08/14/23 04/02/24 gram/dose oral powder pen needle,diabetic dual safty 30 #100 ea 09/17/23 04/02/24 gauge x 3/16 (BD AutoShield Duo Pen Needle) pregabalin 75 mg capsule 75 mg PO TID 09/17/23 04/02/24 diclofenac sodium 1 % topical gel 1 ea topical Q6 PRN Pain 12/17/23 04/02/24 loratadine 10 mg tablet 10 mg PO DAILY 12/17/23 04/02/24 trazodone 50 mg tablet 50 mg PO HS 12/17/23 04/02/24 tirzepatide 5 mg/0.5 mL 5 mg SQ WEEKLY 03/11/24 04/02/24 subcutaneous pen injector (Heather) Previous Rx's ?Medication ?Instructions ?Recorded bumetanide 2 mg tablet 2 mg PO BID #60 tabs 04/30/23 estradiol 0.01% (0.1 mg/gram) 1 appful vaginal DAILY #42.5 grams 03/20/24 vaginal cream (Estrace) terconazole 0.4 % vaginal cream 1 appful vaginal HS 7 days #45 03/20/24 grams methocarbamol 750 mg tablet 750 mg PO QID #120 tabs 03/27/24 Allergies Allergy/AdvReac Type Severity Reaction Status Date / Time cephalexin Allergy Hives Verified 04/02/24 13:49 Penicillins Allergy Hives Verified 04/02/24 13:49 [facility] Disclaimer: The information contained in this section may have been updated after the patient was seen, as this information can be updated by other users. Medical History Swelling of both lower extremities Coronary artery disease Cellulitis of left lower leg Itchy skin Nausea and vomiting in adult patient Acute on chronic respiratory failure with hypoxemia Accidental overdose Chronic respiratory failure with hypoxia and hypercapnia Lung nodule Rotator cuff arthropathy of right shoulder Acute anterior epistaxis Chronic hypoxemic respiratory failure Nodule of left lung Heart attack Encounter for screening for malignant neoplasm of lung COPD mixed type History of smoking 30 or more pack years Dyspnea Bilateral hearing loss due to cerumen impaction Encounter for removal of nasal packing CAD in [place] artery Cardiomyopathy Non-STEMI (non-ST elevated myocardial infarction) Right ventricular dilation Coronary artery disease HFrEF (heart failure with reduced ejection fraction) Pneumonia Diabetes mellitus, type 2 Iron deficiency anemia Pulmonary hypertension Osteoporosis Major depressive disorder Heart failure Depression Lymphedema Insomnia Class 2 obesity due to excess calories with body mass index (BMI) of 39.0 to 39.9 in adult Fibromyalgia Congestive heart failure Atrial fibrillation Anxiety HTN (hypertension) HLD (hyperlipidemia) COPD (chronic obstructive pulmonary disease) BMI 30.0-30.9,adult Osteoarthritis Callus of foot Paresthesia of both lower extremities Onychodystrophy Onychomycosis Diabetic foot Surgical History History of coronary artery stent placement History of bladder surgery H/O: hysterectomy H/O hernia repair Family History Other Diabetes Hyperlipidemia Hypertension No significant family history Social History Smoking Status: Former smoker tobacco type: cigarettes packs per day: 2 alcohol intake: never substance use type: denies use current occupational status: retired and disabled Travel in the last 8 weeks?: None housing: usp lives independently: No usp: Yes caffeine: Yes Other Medical History Have you received the Flu Vaccine for this season: No Have you received the Pneumonia Vaccine: Yes ROS Obtained: Yes All systems reviewed & no additional complaints except as documented Physical Exam General General appearance: alert and in no apparent distress Head Head exam: normocephalic and other (Small hematoma on the scalp without laceration) Eye Eye exam: Present normal appearance, PERRL and EOMI ENT ENT exam: Present normal oropharynx and normal external ear exam Neck Neck exam: Present normal inspection and full ROM; Absent tenderness Chest Chest inspection: Present normal inspection and symmetric chest wall rise; Absent tenderness Respiratory Respiratory exam: Present normal lung sounds bilaterally; Absent respiratory distress Cardiovascular Cardiovascular exam: Present regular rate and normal rhythm Abdominal Exam Abdominal exam: Present soft; Absent distention, tenderness or guarding Extremities Exam Extremities exam: Present edema (Bilateral lower extremity edema wrapped. Tenderness to the right shoulder, active range of motion intact. Tenderness to the right hip.); Absent joint swelling Back Exam Back exam: Present normal inspection and tenderness (Generalized) Neurological Exam Neurological exam: Present alert and oriented X3; Absent motor sensory deficit Psychiatric Psychiatric exam: Present normal affect and normal mood Skin Skin exam: Present warm, dry and normal color Lymphatic Lymphatic Findings: no adenopathy Medical Decision Making Medical Records Medical records reviewed: Yes I reviewed the patient's medical records. Screening: Per USPSTF and CDC recommendations, given the prevalence of disease in our region, it is our hospital?s policy to screen for HIV and viral Hepatitis for all patients aged 18 and over and those with ongoing risk factors. Tj Inquiry Pt receiving controlled substance: No Tj was queried for this patient: No Vital Signs: 08/26/24 04:46 08/26/24 04:56 08/26/24 05:34 Temperature 98.4 F 98.4 F Temperature Source Oral Oral Pulse Rate 79 Pulse Rate [Left] 74 74 Respiratory Rate 20 20 Blood Pressure [R arm] 144/82 H 144/82 H Blood Pressure Mean [R arm] 102 102 Blood Pressure Source [R arm] Manual Cuff/ Auscultation Manual Cuff/ Auscultation 02 Sat by Pulse Oximetry 94 L 94 L 95 Oxygen Delivery Method Nasal Cannula Nasal Cannula Room Air Nasal Cannula Oxygen Flow Rate (LPM) 2 2 3 Lab Data Lab results reviewed: Yes I reviewed the patient's lab results. Lab Results 08/26/24 04:44: WBC 11.5 H, RBC 4.12 L, Hgb 10.5 L, Hct 35.4 L, MCV 85.9, MCH 25.5 L, MCHC 29.7 L, RDW 17.6 H, Plt Count 217, MPV 11.9 H, Neut % (Auto) 74.2, Lymph % (Auto) 12.8, [place] % (Auto) 9.6 H, Eos % (Auto) 1.5, Baso % (Auto) 0.7, Neut # (Auto) 8.6 H, Lymph # (Auto) 1.5, [place] # (Auto) 1.1 H, Eos # (Auto) 0.2, Baso # (Auto) 0.1, PT 11.4, INR 1.03, APTT 27.3, Sodium 131 L, Potassium 4.1, Chloride 88 L, Carbon Dioxide 37 H, Anion Gap 10.1, BUN 23 H, Creatinine 0.90, Estimated Creat Clear 79, Estimated GFR 61, Est GFR ( Amer) 74, Glucose 176 H, Calcium 9.6, Total Bilirubin 0.5, AST 32, ALT 17, Alkaline Phosphatase 108, Total Protein 8.0, Albumin 4.3, Globulin 3.7 H, Albumin/Globulin Ratio 1.2 08/26/24 04:44 08/26/24 04:44 Orders (Tests/Meds): ED MEDICATIONS Discontinued Medications Generic Name Dose Route Start Last Admin Trade Name Justyna PRN Reason Stop Dose Admin Acetaminophen 1,000 mg 08/26/24 04:28 08/26/24 05:11 Acetaminophen 500mg Tab PO 08/26/24 04:29 1,000 mg ONCE ONE Administration Iopamidol 80 ml 08/26/24 05:17 08/26/24 05:18 Iopamidol-370 (76%);100ml Bottle IV 08/26/24 05:18 80 ml ONCE ONE Administration Sodium Chloride 50 ml 08/26/24 05:17 08/26/24 05:18 0.9 % Sodium Chloride 50 Ml Vial IV 08/26/24 05:18 50 ml ONCE ONE Administration Sodium Chloride 10 ml 08/26/24 05:17 08/26/24 05:18 Sodium Chloride 0.9% 10ml Syr (Rad Only) IV 08/26/24 05:18 10 ml ONCE ONE Administration ORDERS Category Date Time Status CT angio abdomen pelvis Stat Cat Scan 08/26/24 04:[address] cervical spine wo con Stat Cat Scan 08/26/24 04:[address] head/brain wo con Stat Cat Scan 08/26/24 04:[address] lumbar spine wo con Stat Cat Scan 08/26/24 04:[address] thoracic spine wo con Stat Cat Scan 08/26/24 04:24 Completed CTA Chest [CT angio chest - dissection] Stat Cat Scan 08/26/24 04:28 Completed POCUS Point of Care (ER Only) Stat Exams 08/26/24 04:48 Completed Shoulder XR right miminum 2 views [XR shoulder RT min Exams 08/26/24 04:24 Completed 2V] Stat CBC w/Auto Diff [Complete Blood Count Auto Diff] Stat Lab 08/26/24 04:44 Completed CMP [Comprehensive Metabolic Panel] Stat Lab 08/26/24 04:44 Completed INR [Prothrombin Time INR] Stat Lab 08/26/24 04:44 Completed PTT [Activated Partial Thrombo Time] Stat Lab 08/26/24 04:44 Completed Medical Decision Narrative: 73-year-old female with history of A-fib on blood thinner presents as a trauma alert after a fall from standing at the nursing facility. History was obtained via interactive discussion with patient, chart review, EMS. On arrival, patient is [afebrile, hemodynamically stable, satting appropriately, alert, oriented x4, GCS 15], moving all extremities spontaneously. Full physical exam performed and significant for mild right-sided shoulder and hip tenderness, small scalp hematoma. Differential includes but is not limited to intracranial trauma intrathoracic trauma intra-abdominal trauma spine trauma extremity trauma. Patient was given Tylenol for symptomatic management and correction of underlying abnormalities. Workup initiated including full trauma scans, radiographs of the right shoulder, basic blood work, EKG. On re-evaluation, patient [remains afebrile, HD stable.] Laboratory workup independently interpreted by me and significant for mild leukocytosis, stable anemia, no significant electrolyte derangement, stable renal function. Imaging independently interpreted by me and significant for acute traumatic injury such as intracranial bleeding, spinal fracture, pneumothorax etc. See radiology read for full review of final results. EKG independently interpreted by me and significant for sinus rhythm, rate of 70, no obvious ischemic changes. Interpretation is limited by baseline artifact. Interpreted at 0434. Given patient history, exam and workup, patient's presentation most likely represents fall with right sided pain. Patient was discharged in stable condition back to nursing facility.. Procedures Risk/Benefits of Procedure(s) Were Explained: Yes Miscellaneous Procedure Procedure Performed: Procedure: Ultrasound-guided IV Indication: Shoulder pain, trauma Description: Linear ultrasound probe was utilized to identify suitable vein. Images were saved to the patient's permanent record. A 18-gauge IV in the left AC. Brachial vein was placed by me at bedside using direct ultrasound guidance. Procedure successful. Critical Care Critical Care Time Critical Care Time: Yes Attestation: On 08/26/24, the high probability of a clinically significant, sudden or life threatening deterioration of the following system(s) required my full and direct attention, intervention and personal management. The time I documented below is in addition to time spent performing reported procedures but includes the following listed in this critical care notation. Total Time Total Critical Care Time: 40
--- NOTE | 2024-08-26 04:34 | ECG_ITS ---
APPROVED REPORT Exam: Resting ECG HR:70 bpm ECG Measurements Heart Rate 70 AXES IA 192 P 94 QRSd 90 QRS 70 QT 397 T 116 QTc 418 Conclusion SINUS RHYTHM WITH OCCASIONAL VENTRICULAR PREMATURE COMPLEXES WITH OCCASIONAL SUPRAVENTRICULAR PREMATURE COMPLEXES LOW QRS VOLTAGE IN EXTREMITY LEADS [QRS DEFLECTION < 0.5 mV IN LIMB LEADS] MODERATE ST DEPRESSION [0.05+ mV ST DEPRESSION] ABNORMAL ECG UNCONFIRMED REPORT Electronically signed by : NEERAJ JIMÉNEZ, 08/27/2024 01:20:18
--- OUTSIDE RECORDS SUMMARY | 2024-08-26 04:40 | XMS_ITS | Clinical Summary ---
Author Organization Healthcare Address [address] [place] [address] Care Team Providers Care Bellhop Service Captain Name Role Phone Tone Ward MD Primary Care Provider [phone] Allergies Active Allergy Reactions Criticality Noted Date Comments Cephalexin Unknown - Patient st ates they do not know rxn details Low 05/23/2024 Penicillins Hives Medium 05/23/2024 Medications fexofenadine (Trina) 180 MG tablet Take 1 tablet by mouth daily. Active Clobetasol Propionate 0.05 % shampoo Apply topically 2 (two) times a week. To scalp Sunday and Sunday night Active clopidogrel (Plavix) 75 MG tablet Take 1 tablet by mouth nightly. Active venlafaxine XR (Effexor-XR) 37.5 MG 24 hr capsule Take 1 capsule by mouth daily. Do not crush or chew. 5 Active ergocalciferol (Vitamin D-2) 1.25 MG (90243 UT) capsule Take 1 capsule by mouth 1 (one) time per week. Active venlafaxine XR (Effexor-XR) 75 MG 24 hr capsule Take 1 capsule by mouth daily. Do not crush or chew. 5 Active ferrous sulfate 324 (65 Fe) MG EC tablet Take 1 tablet by mouth daily. Do not crush, chew, or split. Active insulin glargine (Lantus SoloStar, Basaglar) 100 UNIT/ML injection pen Inject 14 Units under the skin nightly. Active levothyroxine (Synthroid, Levoxyl) 75 MCG tablet Take 1 tablet by mouth daily. Active polyethylene glycol (Miralax) 17 GM/SCOOP powder Take 17 g by mouth daily. Active Mounjaro 10 MG/0.5ML solution auto-injector solution pen-injector Inject 0.5 mL under the skin 1 (one) time per week. Active omeprazole (PriLOSEC) [address] capsule Take 1 capsule by mouth nightly. Do not crush or chew. Active PARoxetine (Paxil) 40 MG tablet Take 1 tablet by mouth nightly. Active pregabalin (Lyrica) 75 MG capsule Take 1 capsule by mouth in the morning (0800), 1 capsule in the afternoon at (1400), and 2 capsules at bedtime Active rosuvastatin (Crestor) 10 MG tablet Take 1 tablet by mouth nightly. Active Multiple Vitamin (Tab-A-Rey) tablet Take 1 tablet by mouth daily. Active Fluticasone-Ume clidin-Vilant (Trelegy Ellipta) 100-62.5-25 MCG/ACT aerosol powder Inhale 1 puff daily. Active bumetanide (Bumex) 2 MG tablet Take 1 tablet by mouth 2 (two) times a day. Active docusate sodium (Colace) 100 MG capsule Take 1 capsule by mouth 2 (two) times a day. Active apixaban (Eliquis) 5 MG tablet Take 1 tablet by mouth 2 (two) times a day. Active Icosapent Ethyl (Vascepa) 1 g capsule Take 2 capsules by mouth 2 (two) times a day with meals. Active spironolactone (Aldactone) 50 MG tablet Take 1 tablet by mouth 2 (two) times a day. Active acetaminophen (Tylenol) 500 MG tablet Take 1 tablet by mouth 3 (three) times a day. Active insulin lispro (Admelog, HumaLOG) 100 UNIT/ML injection pen Inject under the skin 4 (four) times a day before meals and nightly. Active acetaminophen (Tylenol) 500 MG tablet Take 2 tablets by mouth every 6 hours as needed. Active albuterol 108 (90 Base) MCG/ACT inhaler Inhale 2 puffs every 4 (four) hours as needed for shortness of breath or wheezing. Active albuterol (Proventil) (2.5 MG/3ML) 0.083% nebulizer solution Take 3 mL by nebulization every 4 (four) hours as needed for shortness of breath. Active nitroglycerin (Nitrostat) 0.[address] 1 tablet under the tongue every 5 (five) minutes as needed for chest pain. Active ondansetron (Zofran) 4 MG tablet Take 1 tablet by mouth every 8 hours as needed for nausea or vomiting. Active traMADol (Ultram) 50 MG tablet Take 1 tablet by mouth every 12 hours as needed for severe pain. Active triamcinolone (Kenalog) 0.1 % ointment Apply 1 Application topically every 8 hours as needed. Active miconazole (Monistat) 2 % vaginal cream 1 applicator 2 (two) times a day. To groin area Active diclofenac (Voltaren) 1 % topical gel Place on the skin every 6 hours as needed. Apply as directed to BUE's and BLE's Active pregabalin (Lyrica) 100 MG capsule Take 1 capsule by mouth 3 times a day for 14 days. 42 capsule Active methocarbamol (Robaxin) 500 MG tablet Take 2 tablets by mouth every 8 hours for 21 days. 126 tablet 5 Active Active Problems Problem Noted Date Diagnosed Date Hypercarbia 06/02/2024 Overview (06/02/2024): Co2 elevated throughout admission, patient refuses to wear her CPAP Co2 42 06/02 AM. Patient acknowledges the risks of not wearing CPAP. A-fib 05/29/2024 Overview (05/29/2024): On Eliquis at home Can restart on d/c Obesity 05/28/2024 Overview (05/28/2024): Complicates care Leukocytosis 05/26/2024 Overview (05/31/2024): Started IV vanc 05/25 for leukocytosis Switched to IV cefepime and vanc on 05/26 Unremarkable CXR, negative UA Blood cultures NGD5 CAD (coronary artery disease) 05/23/2024 Overview (05/28/2024): Resume home meds as appropriate HTN (hypertension) 05/23/2024 Overview (05/23/2024): Resume home meds when appropriate CHF (congestive heart failure) 05/23/2024 Overview (05/28/2024): Systolic CHF Resume home meds when appropriate Carotid artery stenosis 05/23/2024 COPD (chronic obstructive pulmonary disease) Overview (05/23/2024): 3L baseline DM (diabetes mellitus) 05/23/2024 Overview (05/24/2024): CC diet, SSI NARCISO (obstructive sleep apnea) 05/23/2024 Overview (05/31/2024): Oxygen as needed CPAP nightly (patient refusing) Wheelchair (powered) collidi ng with stationary object, initial encounter 05/23/2024 Overview (05/23/2024): SGT 1 Tertiary exam 05/24 Hematoma of left lower leg 05/22/2024 Overview (05/30/2024): 05/23: left lower leg hematoma evacuation, [place] application with Dr. Zuniga/Dr. Velasquez Plan for M/W/F [place] exchange Johnathan not necrosis of wound found during 05/26 wound vac change Transition to wet to dry dressing 06/02 prior to discharge Resolved Problems Problem Noted Date Diagnosed Date Resolved Date AMS (altered mental status) 05/26/2024 05/30/2024 Overview (05/26/2024): 05/25: Increased lethargy, placed on CPAP then BIPAP, rapid response called CTH unremarkable Blood cultures pending Repeat ABG shows paCO2 59 from 62, patient compensated Encounters Date Type Department Care Team Description 05/23/2024 12:58 AM EDT - 06/02/2024 9:44 AM EDT Hospital Encounter [facility] [address] [place] [address] Cruz Montgomery MD Bernard, MD Rahul Hermosillo Brittany N, MD Detelich, Danielle M MD Nickols, MD Komal De Leon, MD Umesh Velez, MD Denilson Andrade, Marnie Lebron MD Hematoma of left lower leg (Primary Dx) Discharge Disposition: Detention Facility from Last 3 Months Immunizations Immunization Administration Dates Next Due Hep B, adult 12/10/2002,07/09/2002,01/21/2002 PPD Skin Test (TB Skin Test) 04/01/2004, 02/24/2003,02/12/2003,2001,02/10/2001 Td (adult), 5 Lf tetanus tox oid, preservative free, adsorbed 12/05/2016 Family History Medical History Relation Name Comments Diabetes Father Heart attack Father Alzheimer's disease Mother Diabetes Mother Diabetes Other 1 Hyperlipidemia Other 2 Hypertension Other 3 Osteoporosis Other 4 Relation Name Status Comments Father Mother Other 1 Other 2 Other 3 Other 4 Social History Tobacco Use Types Packs/Day Years Used Date Smoking Tobacco: Every Day Alcohol Use Standard Drinks/Week Comments No 0 (1 standard drink = 0.6 oz pur e alcohol) Humiliation, Afraid, Rape, and Kick questionnair e Answer Date Recorded Within the last year, have y ou been afraid of your partner or ex-partner? No 05/26/2024 Within the last year, have y ou been humiliated or emotionally abused in other ways by your partner or ex-partner? No Within the last year, have y ou been kicked, hit, slapped, or otherwise physically hurt by your partner or ex-partner? No 05/26/2024 Within the last year, have y ou been raped or forced to have any kind of sexual activity by your partner or ex-partner? No 05/26/2024 Hunger Vital Sign Answer Date Recorded Within the past 12 months, y ou worried that your food would run out before you got the money to buy more. Never true 05/27/19 Within the past 12 months, t he food you bought just didn't last and you didn't have money to get more. Never true 05/26/2024 PRAPARE - Transportation Answer Date Re corded In the past 12 months, has l ack of transportation kept you from medical appointments or from getting medications? No 05/07 In the past 12 months, has l ack of transportation kept you from meetings, work, or from getting things needed for daily living? No 05/26/2024 Housing Stability Vital Sign Answer Malik e Recorded In the last 12 months, was t here a time when you were not able to pay the mortgage or rent on time? No 05/26/2024 In the past 12 months, how m any times have you moved where you were living? 0 05/26/2024 At any time in the past 12 m [facility], were you homeless or living in a fci (including now)? No 05/26/2024 Utilities Answer Date Recorded In the past 12 months has th e electric, gas, oil, or water company threatened to shut off services in your home? No 05/26/2024 Comments Unknown Sex and Gender Information Value Date Recorded Sex Assigned at Not on file Legal Sex Female 8:53 PM EDT Gender Identity Not on file Sexual Orientation Not on file Last Filed Vital Signs Vital Sign Reading Time Taken Comments Blood Pressure 124/70 06/02/2024 7:00 AM EDT Pulse 69 06/02/2024 7:00 AM EDT Temperature 36.8 C (98.2 F) 06/02/2024 7:00 AM EDT Respiratory Rate 16 06/02/2024 7:00 AM EDT Oxygen Saturation 94% 06/02/2024 3:22 AM EDT Inhaled Oxygen Concentration - - Weight 104 kg (228 lb 2.8 oz) 06/01/2024 6:00 AM EDT Height 162.6 cm (5' 4.02 ) 05/25/2024 5:00 PM ED T Body Mass Index 39.15 05/25/2024 5:00 PM EDT Plan of Treatment Health Maintenance Due Date Last Done Comments [facility]-Bone Density Scan 1950 [facility]-Depression Screening 1950 [facility]-Medicare Annual Wellness (AWV) 1950 [facility]-Infant/Child/Adol SDOH Screenings 1950 [facility]-Obesity Intervention 11/24/1955 Diabetes: Dental Exam 11/24/1959 CT Colonography 1994 Colonoscopy 1994 FIT-DNA 1994 FIT 1994 Sigmoidoscopy 1994 [facility]-Breast Cancer Screening 11/24/1999 [facility]-RSV Vaccine: 60+ Years or (1 - Risk 60-74 years 1-dose series) 2009 [facility]-Zoster Vaccines (2 of 3) 08/06/2015 06/11/2015 FOBT 01/27/2016 01/26/2015 [facility]-Colorectal Cancer Screening 01/27/2016 [facility]-Diabetes: Hemoglobin A1C 04/24/2022, 08/23/2017, 08/13/2015, Additional history exists [id number] Vaccine (6 - Moderna risk season) 2024 11/12/2023, 05/17/2021, 12/13/2020, Additional history exists [facility]-Influenza Vaccine (#1) 10/06/202410/25, 12/14/2020, 02/13/2020, Additional history exists [facility]- SDOH Screenings 11/25/2024 [facility]-Adult SDOH Screenings 11/25/2024 05/26/2024 [facility]-DTaP,Tdap,and Td Vaccines (4 - Td or Tdap) 12/19/2026 12/19/2016, 12/05/2016, 06/24/2014 [facility]-Pneumococcal Vaccine: 50+ Years Completed 05/01/2022, 12/07/2014, 11/20/2006 [facility]-Hepatitis C Screening Completed 05/23/2024, HPV Vaccines Aged Out No longer eligi ble based on patient's age to complete this topic [facility]-HIB Vaccines Aged Out No longer e ligible based on patient's age to complete this topic [facility]-Hepatitis A Vaccines Aged Out No longer eligible based on patient's age to complete this topic [facility]-IPV Vaccines Aged Out No longer e ligible based on patient's age to complete this topic [facility]-Rotavirus Vaccines Aged Out No lo nger eligible based on patient's age to complete this topic Procedures Procedure Name Priority Date/Time Associated Diagnosis Comments POCT GLUCOSE METER UNSOLICITED RESULTS Routine 06/02/2024 8:09 AM EDT BASIC METABOLIC PANEL, PLASMA Routine 06/02/2024 3:18 AM EDT POCT GLUCOSE METER UNSOLICITED RESULTS Routine 06/02/2024 3:03 AM EDT POCT GLUCOSE METER UNSOLICITED RESULTS Routine 06/01/2024 8:14 PM EDT POCT GLUCOSE METER UNSOLICITED RESULTS Routine 06/01/2024 4:49 PM EDT POCT GLUCOSE METER UNSOLICITED RESULTS Routine 06/01/2024 12:17 PM EDT OXYGEN THERAPY Routine 06/01/2024 8:00 AM EDT POCT GLUCOSE METER UNSOLICITED RESULTS Routine 06/01/2024 7:23 AM EDT BASIC METABOLIC PANEL, PLASMA Routine 06/01/2024 3:22 AM EDT CBC WITH AUTO DIFFERENTIAL Routine 06/01/2024 3:22 AM EDT POCT GLUCOSE METER UNSOLICITED RESULTS Routine 06/01/2024 3:08 AM EDT POCT GLUCOSE METER UNSOLICITED RESULTS Routine 05/31/2024 8:53 PM EDT OXYGEN THERAPY Routine 05/31/2024 8:00 PM EDT POCT GLUCOSE METER UNSOLICITED RESULTS Routine 05/31/2024 5:03 PM EDT POCT GLUCOSE METER UNSOLICITED RESULTS Routine 05/31/2024 11:28 AM EDT OXYGEN THERAPY Routine 05/31/2024 8:00 AM EDT POCT GLUCOSE METER UNSOLICITED RESULTS Routine 05/31/2024 7:53 AM EDT POCT GLUCOSE METER UNSOLICITED RESULTS Routine 05/31/2024 3:01 AM EDT POCT GLUCOSE METER UNSOLICITED RESULTS Routine 05/30/2024 9:00 PM EDT OXYGEN THERAPY Routine 05/30/2024 8:00 PM EDT POCT GLUCOSE METER UNSOLICITED RESULTS Routine 05/30/2024 5:17 PM EDT POCT GLUCOSE METER UNSOLICITED RESULTS Routine 05/30/2024 12:09 PM EDT POCT GLUCOSE METER UNSOLICITED RESULTS Routine 05/30/2024 8:25 AM EDT OXYGEN THERAPY Routine 05/30/2024 8:00 AM EDT POCT GLUCOSE METER UNSOLICITED RESULTS Routine 05/30/2024 2:54 AM EDT POCT GLUCOSE METER UNSOLICITED RESULTS Routine 05/29/2024 8:02 PM EDT OXYGEN THERAPY Routine 05/29/2024 8:00 PM EDT POCT GLUCOSE METER UNSOLICITED RESULTS Routine 05/29/2024 5:00 PM EDT POCT GLUCOSE METER UNSOLICITED RESULTS Routine 05/29/2024 11:39 AM EDT POCT GLUCOSE METER UNSOLICITED RESULTS Routine 05/29/2024 8:28 AM EDT OXYGEN THERAPY Routine 05/29/2024 8:00 AM EDT POCT GLUCOSE METER UNSOLICITED RESULTS Routine 05/28/2024 8:25 PM EDT OXYGEN THERAPY Routine 05/28/2024 8:00 PM EDT POCT GLUCOSE METER UNSOLICITED RESULTS Routine 05/28/2024 5:12 PM EDT CO NEG PRESSURE WOUND THERAPY NON DME >50 SQ CM Routine 05/28/2024 4:25 PM EDT Hematoma of left lower leg INSERT PERIPHERAL IV Routine 05/28/2024 3:20 PM EDT POCT GLUCOSE METER UNSOLICITED RESULTS Routine 05/28/2024 11:53 AM EDT POCT GLUCOSE METER UNSOLICITED RESULTS Routine 05/28/2024 8:31 AM EDT OXYGEN THERAPY Routine 05/28/2024 8:00 AM EDT POCT GLUCOSE METER UNSOLICITED RESULTS Routine 05/27/2024 8:16 PM EDT OXYGEN THERAPY Routine 05/27/2024 8:00 PM EDT POCT GLUCOSE METER UNSOLICITED RESULTS Routine 05/27/2024 5:24 PM EDT VANCOMYCIN, PEAK, PLASMA Timed 05/27/2024 12:22 PM EDT POCT GLUCOSE METER UNSOLICITED RESULTS Routine 05/27/2024 12:03 PM EDT VANCOMYCIN, TROUGH, PLASMA Timed 05/27/2024 8:50 AM EDT POCT GLUCOSE METER UNSOLICITED RESULTS Routine 05/27/2024 8:14 AM EDT NON-INVASIVE VENTILATION Routine 05/27/2024 8:00 AM EDT OXYGEN THERAPY Routine 05/27/2024 8:00 AM EDT BASIC METABOLIC PANEL, PLASMA Routine 05/27/2024 5:27 AM EDT CBC W/O DIFFERENTIAL Routine 05/27/2024 5:27 AM EDT HEPATITIS C ANTIBODY - ED W/REFLEX TO HCV QUANT PCR STAT 05/23/2024 2:42 AM EDT HEMOGLOBIN A1C Routine 08/13/2015 3:32 AM EDT from Last 3 Months or Most Recently Relevant to Health Maintenance Results * (ABNORMAL) POCT glucose meter (06/02/2024 8:09 AM EDT) Only the most recent of29 resultswithin the time period is included. POCT Glucose 195(H) 74 - 99 mg/dL 06/02/2024 8:11 AM EDT [facility] Comment:Accuracy of a glucos e result obtained from a capillary whole blood specimen relies upon adequate, non-compromised capillary blood flow. If the capillary glucose result is not consistent with the patient's clinical signs and symptoms, glucose testing should be repeated with either an arterial or venous sample on the glucometer or sent to the main labortory for testing. Comment 06/02/2024 8:11 AM EDT [facility] Roll Slicing Machine Tender ID Andrea Allen 06/03/19 8:11 AM EDT [facility] Device ID [id number] 06/02/2024 8:11 AM EDT [facility] Specimen Type POC Capillary 06/02/2024 8:11 AM EDT [facility] Blood Capillary blood specimen / Unknown 06/02/2024 8:09 AM EDT 06/02/2024 8:11 AM EDT us Thaddeus Thapa MD LAB POINT OF CARE TE ST DOCKED DEVICE UNSOLICITED RESULTS Final Result [facility] [address] [place] [address] * (ABNORMAL) Basic metabolic panel (06/02/2024 3:18 AM EDT) Only the most recent of3 resultswithin the time period is included. Glucose, Plasma 247(H) 74 - 99 mg/dL 06/02/2024 4:07 AM EDT [facility] BUN, Plasma 20 8 - 23 mg/dL 06/02/2024 4:07 AM EDT [facility] Creatinine, Plasma 0.80 0.60 - 1.10 mg/dL 06/02/2024 4:07 AM EDT [facility] BUN/Creatinine Ratio 25 06/02/2024 4:07 AM EDT [facility] Sodium, Plasma 135(L) 136 - 145 mmol/L 06/02/2024 4:07 AM EDT [facility] Potassium, Plasma 4.3 3.6 - 4.9 mmol/L 06/02/2024 4:07 AM EDT [facility] Comment:Hemolyzed, result ma y be falsely increased. Chloride, Plasma 87(L) 97 - 107 mmol/L 06/02/2024 4:07 AM EDT [facility] CO2, Plasma 42(HH) 22 - 29 mmol/L 06/02/2024 4:07 AM EDT [facility] Anion Gap 6 6 - 16 mmol/L 06/02/2024 4:07 AM EDT [facility] Total Calcium, Plasma 9.3 8.9 - 10.2 mg/dL 06/02/2024 4:07 AM EDT [facility] eGFRcr 77.4 mL/min/1.7 3m*2 06/02/2024 4:07 AM EDT [facility] Comment:Reported eGFRcr in m L/min/1.73m2 is based the CKD-EPI 2020 equation that does not use a race coefficient. Blood Venous blood specimen / Unknown Venipuncture / Unknown 06/02/2024 3:18 AM EDT 06/02/2024 3:30 AM EDT us Corrina Clark [employer]ING [employer] SUPERVISOR, DNP LAB BLOOD ORDERABLES Fin al Result [facility] [address] [place] [address] * (ABNORMAL) CBC and Differential (06/01/2024 3:22 AM EDT) WBC Count 10.81(H) 3.70 - 10.30 10*3/uL LAB HEMATOLOGY METHOD 06/01/2024 3:40 AM EDT [facility] RBC Count 3.36(L) 3.90 - 5.20 10*6/uL LAB HEMATOLOGY METHOD 06/01/2024 3:40 AM EDT [facility] HGB 9.9(L) 11.2 - 15.7 g/dL LAB HEMATOLOGY METHOD 06/01/2024 3:40 AM EDT [facility] HCT 31.8(L) 34.0 - 45.0 % LAB HEMATOLOGY METHOD 06/01/2024 3:40 AM EDT [facility] Platelet Count 350 155 - 369 10*3/uL LAB HEMATOLOGY METHOD 06/01/2024 3:40 AM EDT [facility] MCV 95 79 - 98 fL LAB HEMATOLOGY METHOD 06/01/2024 3:40 AM EDT [facility] MCH 29.5 26.0 - 32.0 pg LAB HEMATOLOGY METHOD 06/01/2024 3:40 AM EDT [facility] MCHC 31.1 30.7 - 35.5 g/dL LAB HEMATOLOGY METHOD 06/01/2024 3:40 AM EDT [facility] RDW 16.8(H) 11.5 - 14.5 % LAB HEMATOLOGY METHOD 06/01/2024 3:40 AM EDT [facility] MPV 10.6 8.8 - 12.5 fL LAB HEMATOLOGY METHOD 06/01/2024 3:40 AM EDT [facility] nRBC 0.2(H) <=0.0 per 100 WBCs LAB HEMATOLOGY METHOD 06/01/2024 3:40 AM EDT [facility] Differential Type Automated LAB HEMATOLOGY METHOD 06/01/2024 3:40 AM EDT [facility] Neutrophils % 72 % LAB HEMATOLOGY METHOD 06/01/2024 3:40 AM EDT [facility] Lymphocytes % 11 % LAB HEMATOLOGY METHOD 06/01/2024 3:40 AM EDT [facility] Monocytes % 9 % LAB HEMATOLOGY METHOD 06/01/2024 3:40 AM EDT [facility] Eosinophils % 3 % LAB HEMATOLOGY METHOD 06/01/2024 3:40 AM EDT [facility] Basophils % 1 % LAB HEMATOLOGY METHOD 06/01/2024 3:40 AM EDT [facility] Immature Granulocytes % 4 % LAB HEMATOLOGY METHOD 06/01/2024 3:40 AM EDT [facility] Neutrophils Absolute 7.71(H) 1.60 - 6.10 10*3/uL LAB HEMATOLOGY METHOD 06/01/2024 3:40 AM EDT [facility] Lymphocytes Absolute 1.21 1.20 - 3.90 10*3/uL LAB HEMATOLOGY METHOD 06/01/2024 3:40 AM EDT [facility] Monocytes Absolute 0.99(H) 0.30 - 0.90 10*3/uL LAB HEMATOLOGY METHOD 06/01/2024 3:40 AM EDT [facility] Eosinophils Absolute 0.27 0.00 - 0.50 10*3/uL LAB HEMATOLOGY METHOD 06/01/2024 3:40 AM EDT [facility] Basophils Absolute 0.15(H) 0.00 - 0.10 10*3/uL LAB HEMATOLOGY METHOD 06/01/2024 3:40 AM EDT [facility] Immature Granulocytes Absolute 0.48(H) 0.00 - 0.06 10*3/uL LAB HEMATOLOGY METHOD 06/01/2024 3:40 AM EDT [facility] Blood Venous blood specimen / Unknown Venipuncture / Unknown 06/01/2024 3:22 AM EDT 06/01/2024 3:30 AM EDT Narrative [facility] - 06/01/2024 3:40 AM EDT Therapeutic decision making should be based on absolute values, rather than percentages. us Corrina lCark APRN, DNP LAB BLOOD ORDERABLES Fin al Result Performing Organization Address City/State/[facility] Co de Phone Number [facility] [address] [place] [address] * CO NEG PRESSURE WOUND THERAPY NON DME >50 SQ CM (05/28/2024 4:25 PM EDT) Jeremiah Jimenez MD - 05/28/2024 4:25 PM EDT Jeremiah Sauceda MD 05/29/2024 4:27 PM Wound Vac Placement Performed by: Jeremiah Sauceda MD Authorized by: Jeremiah Sauceda MD Consent: Consent obtained: Verbal Consent given by: Patient Risks discussed: Yes Time out: Immediately prior to the procedure a time out was called DME Vac: No Procedure details: Foam Removed (Pieces): 1 Foam Placed (Pieces): 2 Wound Appearance: No evidence of infection, cauterized johnathan over wound Length (cm): 13 Width (cm): 11 Depth (cm): 1 Calc Area (square cm): 143 Foam Applied: Instiilation Foam Therapy: Continuous Pressure (mmHg): 125 Patient tolerance of procedure: Tolerated well, no immediate complications us Jeremiah Sauceda MD IN CLINIC/BEDSIDE ORDERABLES Fi nal Result * PERIPHERAL IV (SMARTFORM LINK) (05/28/2024 3:20 PM EDT) Jenn Martinez RN - 05/28/2024 3:20 PM EDT Jenn Gray RN 05/28/2024 3:21 PM Insert peripheral IV Performed by: Jenn Gray RN Authorized by: Jeremiah Sauceda MD Hand hygiene: Hand hygiene performed prior to insertion Inserted using aseptic techniques: Yes Preparation: Skin prepped with chg Orientation: Right Location: Forearm Catheter placed: Peripheral IV Catheter size: 20g/2.00in Line Technique: Ultrasound Guidance Number of attempts: 1 IV flushes: Without difficulty and positive blood return noted and IV luer locked Patient tolerance: Patient tolerated the procedure well, age appropriate response and there were no complications IV site covered with: Transparent semipermeable dressing Education provided to: Patient us Jeremiah Sauceda MD IV THERAPY ORDERABLES Final Res ult * Vancomycin, Peak, Plasma Please draw ~2 hours after 0900 dose of vancomycin finishes infusing. Consider obtaining level via peripheral stick. If peripheral stick is not feasible, please ensure that line is flushed well prior to drawing level. Than... (05/27/2024 12:22 PM EDT) [facility] Vancomycin, Peak, Plasma 20.4 20.0 - 40.0 ug/mL 05/27/2024 1:14 PM EDT [facility] Blood Venous blood specimen / Unknown Venipuncture / Unknown 05/27/2024 12:22 PM EDT 05/27/2024 12:37 PM EDT Narrative [facility] - 05/27/2024 1:14 PM EDT Therapeutic Peak level: 20-40ug/mL Supra-therapeutic Peak level: >40 ug/mL us Jeremiah Sauceda MD LAB BLOOD ORDERABLES Final Resu lt [facility] [address] [place] [address] * Vancomycin, Trough, Plasma Please draw ~30 minutes prior to dose due at 0900 on 05/27. Please do NOThold dose awaiting level to return. Consider obtaining level via peripheral stick. If peripheral stick is not feasible, please ensure that line is... (05/27/2024 8:50 AM EDT) Vancomycin, Trough, Plasma 11.2 10.0 - 20.0 ug/mL 05/27/2024 9:25 AM EDT [facility] Blood Venous blood specimen / Unknown Venipuncture / Unknown 05/27/2024 8:50 AM EDT 05/27/2024 8:54 AM EDT Narrative [facility] - 05/27/2024 9:25 AM EDT Therapeutic Trough level: 10-20ug/mL Supra-therapeutic Trough level: >20 ug/mL us Jeremiah Sauceda MD LAB BLOOD ORDERABLES Final Resu lt [facility] [address] [place] [address] * (ABNORMAL) CBC W/O Differential (05/27/2024 5:27 AM EDT) WBC Count 11.48(H) 3.70 - 10.30 10*3/uL LAB HEMATOLOGY METHOD 05/27/2024 5:54 AM EDT [facility] RBC Count 3.09(L) 3.90 - 5.20 10*6/uL LAB HEMATOLOGY METHOD 05/27/2024 5:54 AM EDT [facility] HGB 9.1(L) 11.2 - 15.7 g/dL LAB HEMATOLOGY METHOD 05/27/2024 5:54 AM EDT [facility] HCT 28.5(L) 34.0 - 45.0 % LAB HEMATOLOGY METHOD 05/27/2024 5:54 AM EDT [facility] Platelet Count 163 155 - 369 10*3/uL LAB HEMATOLOGY METHOD 05/27/2024 5:54 AM EDT [facility] MCV 92 79 - 98 fL LAB HEMATOLOGY METHOD 05/27/2024 5:54 AM EDT [facility] MCH 29.4 26.0 - 32.0 pg LAB HEMATOLOGY METHOD 05/27/2024 5:54 AM EDT [facility] MCHC 31.9 30.7 - 35.5 g/dL LAB HEMATOLOGY METHOD 05/27/2024 5:54 AM EDT [facility] RDW 16.4(H) 11.5 - 14.5 % LAB HEMATOLOGY METHOD 05/27/2024 5:54 AM EDT [facility] MPV 10.7 8.8 - 12.5 fL LAB HEMATOLOGY METHOD 05/27/2024 5:54 AM EDT [facility] nRBC 0.0 <=0.0 per 100 WBCs LAB HEMATOLOGY METHOD 05/27/2024 5:54 AM EDT [facility] Blood Venous blood specimen / Unknown Venipuncture / Unknown 05/27/2024 5:27 AM EDT 05/27/2024 5:41 AM EDT us Corrina PINEDA LAB BLOOD ORDERABLES Final Resu lt Performing Organization Address City/[facility]/ZIP Co de Phone Number [facility] [address] [place] [address] * Hepatitis C Antibody - ED (05/23/2024 2:42 AM EDT) Pathologist [facility] Hepatitis C Antibody Negative Negative 05/23/2024 3:32 AM EDT [facility] Blood Venous blood specimen / Unknown Venipuncture / Unknown 05/23/2024 2:42 AM EDT 05/23/2024 2:51 AM EDT us Cruz Montgomery MD LAB BLOOD ORDERABLES Final Re sult Performing Organization Address City/[facility]/ZIP Co de Phone Number [facility] [address] [place] [address] * (ABNORMAL) Hemoglobin A1c (08/13/2015 3:32 AM EDT) Hemoglobin A1c 7.5(H) 4.7 - 6.0 % SUNQUEST Comment: (NOTE) Glycohemoglobin Reference Range, 0 years and up: 4.7 - 6.0% . Hemoglobin A1c values of 5.7 - 6.4% indicate an increased risk for developing diabetes mellitus (prediabetes). Hemoglobin A1c values greater than or equal to 6.5% are diagnostic of diabetes mellitus. . HbA1c assay performed by an ion-exchange chromatography method that is certified traceable to the DCCT. 08/13/2015 3:32 AM EDT 08/13/2015 3:48 AM EDT us Historical Provider LAB BLOOD ORDERABLES Zaria cee Result SUNQUEST from Last 3 Months or Most Recently Relevant to Health Maintenance Additional Health Concerns Infection Onset Date Last Indicated MRSA 05/26/2024 05/26/2024 [place] [address] Advance Directives * Full Code (Latest Code Status on File) Date Activated Date Inactivated Comments 05/23/2024 3:12 AM 06/02/2024 11:44 AM Question Answer Comments I have reviewed the capacity from the link above and, if needed, have updated to appropriate status: Yes Care Teams Bellhop Service Captain Relationship Specialty Start Date End Date Tone Ward MD [address] [place] [address] [place] [address] (work) PCP - General 06/18/20
--- OUTSIDE RECORDS SUMMARY | 2024-08-26 04:40 | XMS_ITS | Clinical Summary ---
Author Organization [facility] Address [address] [place] [address] Phone Care Team Providers Care Special Police Name Role Phone Delfino Valdez MD [ ] Conditions or Problems Problem Name Problem Code Onset Date Status Entry Date Provider Comment Standard Description Annotate Chronic venous stasis disease 51566179 (SNOMED CT) Active 04/27 Adri Prabhakar Stasis dermatitis DM II with diabetic PVD 520110664 (SNOMED CT) Active 04/27 Adri Prabhakar Peripheral [...] II with peripheral vascular disorder, with gangrene 625575088 (SNOMED CT) Active 03/13 Sharyn W Peripheral circulatory disorder due to type 2 diabetes mellitus Skin tissue necrosis 86323773 (SNOMED CT) Inactive 03/13 Sharyn W Skin necrosis Abrasion, left lower leg, subsequent encounter S80.812D (ICD-10-CM) Inactive 03/13 Sharyn W Abrasion, left lower leg, subsequent encounter Cellulitis, leg, right 095858769 (SNOMED CT) Active 03/13 Adri Prabhakar Cellulitis of lower limb Skin tissue necrosis 89114410 (SNOMED CT) Removed 03/13 Adri Prabhakar Skin necrosis Cellulitis, leg, left 342979145 (SNOMED CT) Active 03/13 Adri Prabhakar Cellulitis of lower limb Abrasion, left lower leg, subsequent encounter S80.812D (ICD-10-CM) Removed 03/13 Adri Prabhakar Abrasion, left lower leg, subsequent encounter DM II with diabetic PVD 464271009 (SNOMED CT) Inactive 03/13 Adri Prabhakar Peripheral vascular disease DM, type II, poorly controlled E11.65 (ICD-10-CM) Active 03/13 Adri Prabhakar Type 2 diabetes mellitus with hyperglycemia Hx of falling 688843194 (SNOMED CT) Active 03/13 Adri Prabhakar History of fall Other obesity due to excess calories 588035148 (SNOMED CT) Active 03/13 Jenn Back Simple obesity Medications Medication Instructions Start Date Stop Date Generic Name NDC Provider DOXYCYCLINE HYCLATE 100 MG TABS Take one pill twice daily. DOXYCYCLINE HYCLATE 45300974055 Delfino Valdez MD DOXYCYCLINE MONOHYDRATE 100 MG TABS Take one pill twice daily. DOXYCYCLINE MONOHYDRATE 13410118844 Delfino Valdez MD DIAZEPAM GEL twice a day in the morning and before bed DIAZEPAM GEL 46867995989 Katie Elkins CELEXA 40 MG TABS Take 1 tablet by mouth daily at bedtime CITALOPRAM HYDROBROMIDE 67241247819 Katie Elkins HYDROCODONE-ACETAM INOPHEN 5-325 MG TABS prn HYDROCODONE-ACETA MINOPHEN 73774269919 Katie Elkins HYDROXYZINE HCL 50 MG TABS Take one (1) tablet by mouth three times a day HYDROXYZINE HCL 76050886426 Katie Elkins TIZANIDINE HCL 4 MG CAPS Take one (1) tablet by mouth twice a day prn TIZANIDINE HCL 56343740366 Katie Elkins FUROSEMIDE 40 MG TABS Take one (1) tablet by mouth three times a day FUROSEMIDE 14850188115 Katie Elkins ATORVASTATIN CALCIUM 80 MG TABS Take 1 tablet by mouth daily at bedtime ATORVASTATIN CALCIUM 30495808241 Katie Elkins HM MAGNESIUM 400 MG ORAL TABLET Take 1 tablet by mouth daily MAGNESIUM OXIDE 98564720048 Katie Elkins INVOKANA 100 MG TABS Take 1 tablet by mouth daily in the morning CANAGLIFLOZIN 77519510194 Katie Elkins METFORMIN HCL 1000 MG TABS Take one (1) tablet by mouth twice a day METFORMIN HCL 20858109569 Katie Elkins AMBIZINE 25 MG ORAL TABLET prn MECLIZINE HCL 01362998733 Katie K DICYCLOMINE HCL 10 MG CAPS prn DICYCLOMINE HCL 50341884966 Katie Elkins LISINOPRIL 10 MG TABS Take 1 tablet by mouth daily LISINOPRIL 38329543487 Katie K ASPIRIN 325 MG TABS ASPIRIN 95352966481 Katie K LANTUS SOLOSTAR 100 UNIT/ML SOPN 50 units at bedtime INSULIN GLARGINE 84129785079 Katie K VENTOLIN HFA 108 (90 Base) MCG/ACT AERS 2 puffs prn ALBUTEROL SULFATE 20170320483 Katie K SYMBICORT 160-4.5 MCG/ACT AERO 2 puffs twice daily prn BUDESONIDE-FORMOT SKYE FUMARATE 52734008276 Katie K AMITRIPTYLINE HCL 25 MG TABS Take 1 tablet by mouth daily at bedtime AMITRIPTYLINE HCL 58623629949 Katie Severo *NEEDS MED LIST UPDATE -SEE LIST* 04/03 *NEEDS MED LIST UPDATE -SEE LIST* Katie Elkins DAKINS SOLUTION DAKINS SOLN [id number] Andrew Elias *NEEDS MED LIST UPDATE -SEE LIST* 04/03 *NEEDS MED LIST UPDATE -SEE LIST* Andrew Elias DOXYCYCLINE HYCLATE 100 MG CAPS take 1 cap po BID DOXYCYCLINE HYCLATE 37120282042 Delfino Valdez MD ACETAMINOPHEN 325 MG TABS Take 2 tabs by mouth daily as needed 03/14 ACETAMINOPHEN 19197247564 Delfino Valdez MD BACTRIM DS 800-160 MG TABS Take one (1) tablet by mouth twice a day 03/14 SULFAMETHOXAZOLE- TRIMETHOPRIM 96354281093 Delfino Valdez MD ATORVASTATIN CALCIUM 20 MG TABS 1 tab by mouth qhs 03/14 ATORVASTATIN CALCIUM 91335439298 Delfino Valdez MD BUMETANIDE 1 MG TABS Take 2 tabs by mouth every 12 hours 03/14 BUMETANIDE 41797590330 Delfino Valdez MD DAKINS (1/4 STRENGTH) 0.125 % SOLN 1 application twice daily 03/14 DAKINS 08106405001 Delfino Valdez MD NOVOLOG 100 UNIT/ML SUBCUTANEOUS SOLUTION Inject subQ with meals 03/14 INSULIN ASPART 85882819434 Delfino Valdez MD KLOR-CON 10 10 MEQ CR-TABS Take 4 tabs by mouth daily 03/14 POTASSIUM CHLORIDE 27369727346 Delfino Valdez MD VITAMIN D2 50 MCG (1999 UT) TABS 50,000 one cap a month ERGOCALCIFEROL 54012258520 Jenn Back KLOR-CON 10 10 MEQ CR-TABS Take 4 tabs by mouth daily 5/0 7/01 POTASSIUM CHLORIDE 33056326464 Jenn Back OXYCODONE HCL 5 MG TABS Take 2 tabs every 6 hours as needed OXYCODONE HCL 72242969746 Jenn Back OMEPRAZOLE 40 MG CPDR Take 1 tablet by mouth daily OMEPRAZOLE 46048280582 Jenn Back METHOCARBAMOL 500 MG TABS Take 0.5 tab by mouth every 6 hours METHOCARBAMOL 01379150972 Jenn Back MELATONIN 3 MG TABS Take 2 tabs by mouth qhs MELATONIN 01215714999 Jenn Back LIDOCAINE HCL 2 % EXTERNAL GEL Apply topically as needed LIDOCAINE HCL 36033363052 Jenn Back LEVOCETIRIZINE DIHYDROCHLORIDE 5 MG TABS Take 1 tab by mouth at night LEVOCETIRIZINE DIHYDROCHLORIDE 59812221146 Jenn Back NOVOLOG 100 UNIT/ML SUBCUTANEOUS SOLUTION Inject subQ with meals 05/06 INSULIN ASPART 80467269615 Jenn Back GABAPENTIN 300 MG CAPS Take one (1) tablet by mouth three times a day GABAPENTIN 03550800913 Jenn Back FOLIC ACID 1 MG TABS Take 1 tablet by mouth daily FOLIC ACID 69177806206 Jenn Back BREO ELLIPTA 100-25 MCG/ACT AEPB Inhale 1 puff daily FLUTICASONE FUROATE-VILANTERO L 54509624332 Jenn Back DULCOLAX STOOL SOFTENER 100 MG CAPS 1 supp as needed DOCUSATE SODIUM 77734224504 Jenn Back DAKINS (1/4 STRENGTH) 0.125 % SOLN 1 application twice daily 05/06 DAKINS 23422291763 Jenn Back CELEXA 20 MG TABS Take 2 tabs by mouth daily CITALOPRAM HYDROBROMIDE 66175808526 Jenn Back BUMETANIDE 1 MG TABS Take 2 tabs by mouth every 12 hours 08/05 BUMETANIDE 48156606828 Jenn Back BACTRIM DS 800-160 MG TABS Take one (1) tablet by mouth twice a day 4 SULFAMETHOXAZOLE- TRIMETHOPRIM 64415649486 Jenn Back ATORVASTATIN CALCIUM 20 MG TABS 1 tab by mouth qhs 207 ATORVASTATIN CALCIUM 38594151871 Jenn Back ADULT ASPIRIN EC LOW STRENGTH 81 MG ORAL TABLET DELAYED RELEASE Take 1 tablet by mouth daily ASPIRIN 67908026371 Jenn Back AMITRIPTYLINE HCL 25 MG TABS Take by mouth every hour 04/03 AMITRIPTYLINE HCL 03415191593 Jenn Back ALBUTEROL SULFATE (2.5 MG/3ML) 0.083% NEBU Inhale 3mL every 6 hours as needed ALBUTEROL SULFATE 51346756740 Jenn Back ACETAMINOPHEN 325 MG TABS Take 2 tabs by mouth daily as needed 03/14 ACETAMINOPHEN 20103766754 Jenn Back Medications Administered No information available. 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 Advance Directives Directive Description Start Date NO ADVANCED DIRECTIVES ESTABLISHED AT TH IS TIME
[2024-08-26 04:46] VITALS: BP 144/82; PULSE 74; RESP 20; TEMP 36.9; O2SAT 94; BMI 38.2
[2024-08-26 04:52] LABS: Hematocrit 35.4 % (37.0-47.0); Hemoglobin 10.5 g/dL (12.2-16.2); Immature Granulocytes % 1.2 %; Mean Corpuscular HGB Conc 29.7 g/dL (31.8-35.4); Mean Corpuscular Hemoglobin 25.5 pg (27.0-31.2); Mean Corpuscular Volume 85.9 fl (81-99); Nucleated Red Blood Cells % 0 %; Platelet Count 217 K/mm3 (142-424); Red Blood Count 4.12 M/mm3 (4.20-5.40); Red Cell Distribution Width-SD 54.4 fL; White Blood Count 11.5 K/mm3 (4.8-10.8)
[2024-08-26 04:56] VITALS: BP 144/82; PULSE 74; RESP 20; TEMP 36.9; O2SAT 94
[2024-08-26 05:01] LABS: Albumin Level 4.3 g/dl (3.5-5.0); Chloride 88 mmol/L (98-107)
[2024-08-26 05:02] LABS: Potassium 4.1 mmoL/L (3.5-5.1); Sodium 131 mmol/L (136-145)
[2024-08-26 05:04] LABS: Alanine Aminotransferase 17 U/L (12-78); Anion Gap 10.1 mEq/L (5-15); Aspartate Amino Transferase 32 U/L (14-36); Blood Urea Nitrogen 23 mg/dl (7-17); Carbon Dioxide 37 mmol/L (22.0-30.0); Creatinine Clearance Estimated 79 mL/min (50-200); Creatinine,Serum 0.90 mg/dl (0.52-1.04); Estimated Glomerular Filt Rate 61 ml/min (>60); GFR (African American) 74 ML/MIN (>60)
[2024-08-26 05:05] LABS: Albumin/Globulin Ratio 1.2 (1.1-1.8); Alkaline Phosphatase 108 U/L (38-126); Bilirubin,Total 0.5 mg/dl (0.2-1.3); Calcium 9.6 mg/dl (8.4-10.2); Globulin 3.7 g/dL (1.3-3.2); Glucose 176 mg/dl (74-100); Total Protein,Serum 8.0 g/dl (6.3-8.2)
[2024-08-26 05:08] LABS: Activated Partial Thrombo Time 27.3 seconds (22.8-30.6); INR 1.03 (0.9-1.1); Prothrombin Time 11.4 seconds (10.1-12.5)
[2024-08-26] MEDS: ACETAMINOPHEN 500MG TAB 1000 MG PO (05:11)
[2024-08-26] MEDS: SODIUM CHLORIDE 0.9% 10ML SYR (RAD ONLY) 10 ML IV (05:18)
[2024-08-26] MEDS: IOPAMIDOL-370 (76%);100ML BOTTLE 80 ML IV (05:18)
[2024-08-26] MEDS: 0.9 % SODIUM CHLORIDE 50 ML VIAL IV (05:18)
[2024-08-26 05:34] VITALS: PULSE 79; O2SAT 95
--- OUTSIDE RECORDS SUMMARY | 2024-08-26 05:40 | XMS_ITS | CCD ---
Author Organization Unknown Care Team Providers Care Council On Aging Director Name Role Phone Unavailable Primary Care Provider Unavailabl e Unavailable Chronic Care Management Unavaila ble Summary Purpose DataExchange Insurance Providers Payer name Policy type / Coverage type Covered green party ID Effective Begin Date Effective End Date [facility] [id number] Unknown Unknown Family History Family History data not found Medication Administered No Medication Administered data Reason For Visit No Reason For Visit data Medical Equipment No Medical Equipment data Advance Directives No Advance Directive data
--- NOTE | 2024-08-26 05:49 | PC.NURSE ---
Transport contacted for EMS back to [place]
[2024-08-26 06:01] VITALS: BP 139/79; PULSE 78; RESP 20; TEMP 36.9; O2SAT 95
== END 2024-08-26 06:42 ==
PROVIDERS: Emergency Provider Emergency Medicine
DX: M25.559 Pain in unspecified hip (principal); M25.519 Pain in unspecified shoulder; W19.XXXA Unspecified fall, initial encounter; Z87.891 Personal history of nicotine dependence
CPT/HCPCS: 70450; 71275; 72125; 72128; 72131; 73030; 74174; 80053; 85025; 85610; 85730; 93005; 99291; Q9967

== ENCOUNTER 2024-09-15 07:53 | Outpatient (CLI) | payer MEDICARE, MEDICAID, SELFPAY ==
--- OUTSIDE RECORDS SUMMARY | 2024-09-15 07:55 | XMS_ITS | Clinical Summary ---
Author Organization [facility] Address [address] [place] [address] Phone Care Team Providers Care Gastroenterologist Name Role Phone Delfino Valdez MD [ ] Conditions or Problems Problem Name Problem Code Onset Date Status Entry Date Provider Comment Standard Description Annotate Chronic venous stasis disease 49651064 (SNOMED CT) Active 04/27 Adri Prabhakar Stasis dermatitis DM II with diabetic PVD 897933135 (SNOMED CT) Active 04/27 Adri Prabhakar Peripheral [...] II with peripheral vascular disorder, with gangrene 471674743 (SNOMED CT) Active 03/13 Sharyn W Peripheral circulatory disorder due to type 2 diabetes mellitus Skin tissue necrosis 26097992 (SNOMED CT) Inactive 03/13 Sharyn W Skin necrosis Abrasion, left lower leg, subsequent encounter S80.812D (ICD-10-CM) Inactive 03/13 Sharyn W Abrasion, left lower leg, subsequent encounter Cellulitis, leg, right 140724958 (SNOMED CT) Active 03/13 Adri Prabhakar Cellulitis of lower limb Skin tissue necrosis 59558053 (SNOMED CT) Removed 03/13 Adri Prabhakar Skin necrosis Cellulitis, leg, left 198750660 (SNOMED CT) Active 03/13 Adri Prabhakar Cellulitis of lower limb Abrasion, left lower leg, subsequent encounter S80.812D (ICD-10-CM) Removed 03/13 Adri Prabhakar Abrasion, left lower leg, subsequent encounter DM II with diabetic PVD 604220453 (SNOMED CT) Inactive 03/13 Adri Prabhakar Peripheral vascular disease DM, type II, poorly controlled E11.65 (ICD-10-CM) Active 03/13 Adri Prabhakar Type 2 diabetes mellitus with hyperglycemia Hx of falling 453397075 (SNOMED CT) Active 03/13 Adri Prabhakar History of fall Other obesity due to excess calories 706995061 (SNOMED CT) Active 03/13 Jenn Back Simple obesity Medications Medication Instructions Start Date Stop Date Generic Name NDC Provider DOXYCYCLINE HYCLATE 100 MG TABS Take one pill twice daily. DOXYCYCLINE HYCLATE 33110153570 Delfino Valdez MD DOXYCYCLINE MONOHYDRATE 100 MG TABS Take one pill twice daily. DOXYCYCLINE MONOHYDRATE 41890942027 Delfino Valdez MD DIAZEPAM GEL twice a day in the morning and before bed DIAZEPAM GEL 23679220069 Katie Elkins CELEXA 40 MG TABS Take 1 tablet by mouth daily at bedtime CITALOPRAM HYDROBROMIDE 71275763336 Katie Elkins HYDROCODONE-ACETAM INOPHEN 5-325 MG TABS prn HYDROCODONE-ACETA MINOPHEN 83440987549 Katie Elkins HYDROXYZINE HCL 50 MG TABS Take one (1) tablet by mouth three times a day HYDROXYZINE HCL 15583413427 Katie Elkins TIZANIDINE HCL 4 MG CAPS Take one (1) tablet by mouth twice a day prn TIZANIDINE HCL 14089711359 Katie Elkins FUROSEMIDE 40 MG TABS Take one (1) tablet by mouth three times a day FUROSEMIDE 19315525480 Katie Elkins ATORVASTATIN CALCIUM 80 MG TABS Take 1 tablet by mouth daily at bedtime ATORVASTATIN CALCIUM 42243089035 Katie Elkins HM MAGNESIUM 400 MG ORAL TABLET Take 1 tablet by mouth daily MAGNESIUM OXIDE 42530940827 Katie Elkins INVOKANA 100 MG TABS Take 1 tablet by mouth daily in the morning CANAGLIFLOZIN 76648719436 Katie Elkins METFORMIN HCL 1000 MG TABS Take one (1) tablet by mouth twice a day METFORMIN HCL 29380623922 Katie Elkins AMBIZINE 25 MG ORAL TABLET prn MECLIZINE HCL 14056599858 Katie K DICYCLOMINE HCL 10 MG CAPS prn DICYCLOMINE HCL 10593217005 Katie Elkins LISINOPRIL 10 MG TABS Take 1 tablet by mouth daily LISINOPRIL 56135471201 Katie K ASPIRIN 325 MG TABS ASPIRIN 73119768337 Katie K LANTUS SOLOSTAR 100 UNIT/ML SOPN 50 units at bedtime INSULIN GLARGINE 56619491585 Katie K VENTOLIN HFA 108 (90 Base) MCG/ACT AERS 2 puffs prn ALBUTEROL SULFATE 03516870023 Katie K SYMBICORT 160-4.5 MCG/ACT AERO 2 puffs twice daily prn BUDESONIDE-FORMOT SKYE FUMARATE 28406042096 Katie K AMITRIPTYLINE HCL 25 MG TABS Take 1 tablet by mouth daily at bedtime AMITRIPTYLINE HCL 86037667977 Katie Severo *NEEDS MED LIST UPDATE -SEE LIST* 04/03 *NEEDS MED LIST UPDATE -SEE LIST* Katie Elkins DAKINS SOLUTION DAKINS SOLN [id number] Andrew Elias *NEEDS MED LIST UPDATE -SEE LIST* 04/03 *NEEDS MED LIST UPDATE -SEE LIST* Andrew Elias DOXYCYCLINE HYCLATE 100 MG CAPS take 1 cap po BID DOXYCYCLINE HYCLATE 35465674739 Delfino Valdez MD ACETAMINOPHEN 325 MG TABS Take 2 tabs by mouth daily as needed 03/14 ACETAMINOPHEN 15504630417 Delfino Valdez MD BACTRIM DS 800-160 MG TABS Take one (1) tablet by mouth twice a day 03/14 SULFAMETHOXAZOLE- TRIMETHOPRIM 83031659388 Delfino Valdez MD ATORVASTATIN CALCIUM 20 MG TABS 1 tab by mouth qhs 03/14 ATORVASTATIN CALCIUM 79471445556 Delfino Valdez MD BUMETANIDE 1 MG TABS Take 2 tabs by mouth every 12 hours 03/14 BUMETANIDE 39719342155 Delfino Valdez MD DAKINS (1/4 STRENGTH) 0.125 % SOLN 1 application twice daily 03/14 DAKINS 91681696977 Delfino Valdez MD NOVOLOG 100 UNIT/ML SUBCUTANEOUS SOLUTION Inject subQ with meals 03/14 INSULIN ASPART 20217046349 Delfino Valdez MD KLOR-CON 10 10 MEQ CR-TABS Take 4 tabs by mouth daily 03/14 POTASSIUM CHLORIDE 13051041628 Delfino Valdez MD VITAMIN D2 50 MCG (1999 UT) TABS 50,000 one cap a month ERGOCALCIFEROL 75111367442 Jenn Back KLOR-CON 10 10 MEQ CR-TABS Take 4 tabs by mouth daily 5/0 7/01 POTASSIUM CHLORIDE 28072752136 Jenn Back OXYCODONE HCL 5 MG TABS Take 2 tabs every 6 hours as needed OXYCODONE HCL 07707519542 Jenn Back OMEPRAZOLE 40 MG CPDR Take 1 tablet by mouth daily OMEPRAZOLE 79192336296 Jenn Back METHOCARBAMOL 500 MG TABS Take 0.5 tab by mouth every 6 hours METHOCARBAMOL 07134642835 Jenn Back MELATONIN 3 MG TABS Take 2 tabs by mouth qhs MELATONIN 04531439614 Jenn Back LIDOCAINE HCL 2 % EXTERNAL GEL Apply topically as needed LIDOCAINE HCL 47463798667 Jenn Back LEVOCETIRIZINE DIHYDROCHLORIDE 5 MG TABS Take 1 tab by mouth at night LEVOCETIRIZINE DIHYDROCHLORIDE 85757958699 Jenn Back NOVOLOG 100 UNIT/ML SUBCUTANEOUS SOLUTION Inject subQ with meals 05/06 INSULIN ASPART 09907053679 Jenn Back GABAPENTIN 300 MG CAPS Take one (1) tablet by mouth three times a day GABAPENTIN 44756917062 Jenn Back FOLIC ACID 1 MG TABS Take 1 tablet by mouth daily FOLIC ACID 01119964400 Jenn Back BREO ELLIPTA 100-25 MCG/ACT AEPB Inhale 1 puff daily FLUTICASONE FUROATE-VILANTERO L 80977708971 Jenn Back DULCOLAX STOOL SOFTENER 100 MG CAPS 1 supp as needed DOCUSATE SODIUM 72946975203 Jenn Back DAKINS (1/4 STRENGTH) 0.125 % SOLN 1 application twice daily 05/06 DAKINS 02029230165 Jenn Back CELEXA 20 MG TABS Take 2 tabs by mouth daily CITALOPRAM HYDROBROMIDE 64721034512 Jenn Back BUMETANIDE 1 MG TABS Take 2 tabs by mouth every 12 hours 08/05 BUMETANIDE 81724752320 Jenn Back BACTRIM DS 800-160 MG TABS Take one (1) tablet by mouth twice a day 4 SULFAMETHOXAZOLE- TRIMETHOPRIM 32089781736 eJnn Back ATORVASTATIN CALCIUM 20 MG TABS 1 tab by mouth qhs 207 ATORVASTATIN CALCIUM 90269547082 Jenn Back ADULT ASPIRIN EC LOW STRENGTH 81 MG ORAL TABLET DELAYED RELEASE Take 1 tablet by mouth daily ASPIRIN 99572724420 Jenn Back AMITRIPTYLINE HCL 25 MG TABS Take by mouth every hour 04/03 AMITRIPTYLINE HCL 88564500118 Jenn Back ALBUTEROL SULFATE (2.5 MG/3ML) 0.083% NEBU Inhale 3mL every 6 hours as needed ALBUTEROL SULFATE 19937332137 Jenn Back ACETAMINOPHEN 325 MG TABS Take 2 tabs by mouth daily as needed 03/14 ACETAMINOPHEN 89683546366 Jenn Back Medications Administered No information available. 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
--- OUTSIDE RECORDS SUMMARY | 2024-09-15 07:56 | XMS_ITS | Clinical Summary ---
Author Organization Healthcare Address [address] [place] [address] Care Team Providers Care Nail Machine Operator Name Role Phone Tone Ward MD Primary Care Provider [phone] Allergies Active Allergy Reactions Criticality Noted Date [...] 5 Active ergocalciferol (Vitamin D-2) 1.25 MG (39641 UT) capsule Take 1 capsule by mouth [...] Zuniga/Dr. Velasquez Plan for M/W/F [place] exchange Tiffanie not necrosis of wound found during 05/26 wound vac change Transition to wet to dry dressing 06/02 prior to discharge Resolved Problems Problem Noted Date Diagnosed Date Resolved Date AMS (altered mental status) 05/26/2024 05/30/2024 Overview (05/26/2024): 05/25: Increased lethargy, placed on CPAP then BIPAP, rapid response called CTH unremarkable Blood cultures pending Repeat ABG shows paCO2 59 from 62, patient compensated Immunizations Immunization Administration Dates Next Due Hep [...] money to buy more. Never true 05/27/19 25 Within the past 12 months, t he [...] any time in the past 12 m [facility], were you homeless or living in a longterm (including now)? No 05/26/2024 Utilities Answer Date Recorded In the past 12 months has th e electric, [employer], oil, or water [employer] threatened to shut off services in your [...] Screening 1950 [facility]-Medicare Annual Wellness (AWV) 1950 [facility]-/Child/Adol SDOH Screenings 1950 [facility]-Obesity Intervention 11/24/1955 Diabetes: Dental Exam 11/24/1959 CT Colonography 1994 Colonoscopy 1994 FIT-DNA 1994 FIT 1994 Sigmoidoscopy 1994 [facility]-Breast Cancer Screening 11/24/1999 [facility]-RSV Vaccine: 60+ Years or (1 - Risk 60-74 years 1-dose series) 2009 [facility]-Zoster Vaccines (2 of 3) 08/06/2015 06/11/2015 FOBT 01/27/2016 01/26/2015 [facility]-Colorectal Cancer Screening 01/27/2016 [facility]-Diabetes: Hemoglobin A1C 04/24/2022, 08/23/2017, 08/13/2015, Additional history exists [id number] Vaccine (6 - Moderna risk ) 05/12/2024 11/12/2023, 05/17/2021, 12/13/2020, Additional history exists [facility]-Influenza [...] Procedure Name Priority Date/Time Associated Diagnosis Comments HEPATITIS C ANTIBODY - ED W/REFLEX TO HCV QUANT PCR STAT 05/23/2024 2:42 AM EDT HEMOGLOBIN A1C Routine 08/13/2015 3:32 AM EDT from Last 3 Months or Most Recently Relevant to Health Maintenance Results * Hepatitis C Antibody - ED (05/23/2024 2:42 AM EDT) Hepatitis C Antibody Negative Negative 05/23/2024 3:32 AM EDT [facility] Blood Venous blood specimen / Unknown Venipuncture / Unknown 05/23/2024 2:42 AM EDT 05/23/2024 2:51 AM EDT us Cruz Montgomery MD LAB BLOOD ORDERABLES Final Re sult [facility] [address] [place] [address] * (ABNORMAL) Hemoglobin A1c (08/13/2015 3:32 AM [...] 3:32 AM EDT 08/13/2015 3:48 AM EDT [facility] Provider LAB BLOOD ORDERABLES Zaria l Result SUNQUEST from Last 3 Months or Most Recently Relevant to Health Maintenance Additional Health Concerns Infection Onset Date Last Indicated MRSA 05/26/2024 05/26/2024 [place] [address] Advance Directives * Full Code (Latest Code Status on File) Date Activated Date Inactivated Comments 05/23/2024 3:12 AM 06/02/2024 11:44 AM Question Answer Comments I have reviewed the capacity from the link above and, if needed, have updated to appropriate status: Yes Care Teams Nail Machine Operator Relationship Specialty Start Date End Date Tone Ward MD [address] [place] [address] PCP - General 06/18/20
[2024-09-15 08:35] VITALS: PULSE 49; PULSE 55
[2024-09-15] MEDS: ALBUTEROL 0.083% 2.5 MG/3 ML NEB IH (08:35)
--- OUTSIDE RECORDS SUMMARY | 2024-09-15 08:56 | XMS_ITS | CCD ---
Author Organization Unknown Care Team Providers Care Sales And Marketing Administrator Name Role Phone Unavailable Primary Care Provider Unavailabl e Unavailable Chronic Care Management Unavaila ble Summary Purpose DataExchange Insurance Providers Payer name Policy type / Coverage type Covered republican ID Effective Begin Date Effective End Date [facility] [id number] Unknown Unknown Family History Family History data not found Medication Administered No Medication Administered data Reason For Visit No Reason For Visit data Medical Equipment No Medical Equipment data Advance Directives No Advance Directive data
--- OUTSIDE RECORDS SUMMARY | 2024-09-15 08:56 | XMS_ITS | CCD ---
Author Organization Unknown Care Team Providers Care Custodian Name Role Phone Unavailable Primary Care Provider Unavailabl e Unavailable Chronic Care Management Unavaila ble Summary Purpose DataExchange Insurance Providers Payer name Policy type / Coverage type Covered constitution party ID Effective Begin Date Effective End Date [facility] [id number] Unknown Unknown Family History Family History data not found Medication Administered No Medication Administered data Reason For Visit No Reason For Visit data Medical Equipment No Medical Equipment data Advance Directives No Advance Directive data
== END 2024-09-15 23:59 | disposition home or self-care (01) ==
PROVIDERS: Visit Provider Internal Medicine Pulmonary Disease
DX: J44.9 Chronic obstructive pulmonary disease, unspecified (principal); I49.1 Atrial premature depolarization; I47.19 Other supraventricular tachycardia; I49.3 Ventricular premature depolarization; I47.29 Other ventricular tachycardia; I49.8 Other specified cardiac arrhythmias; I44.4 Left anterior fascicular block; I48.20 Chronic atrial fibrillation, unspecified; I50.30 Unspecified diastolic (congestive) heart failure; R94.2 Abnormal results of pulmonary function studies
CPT/HCPCS: 93270; 94060; 94640

== ENCOUNTER 2024-10-21 12:05 | Emergency (ER) | payer MEDICARE, MEDICAID, SELFPAY ==
[2024-10-21 12:12] VITALS: BP 147/76; PULSE 71; RESP 18; TEMP 36.9; O2SAT 95; BMI 36.8
--- NOTE | 2024-10-21 12:12 | XR_ITS ---
FINAL REPORT CLINICAL HISTORY: pain COMPARISON: None FINDINGS: Three views of the right hand show a mildly impacted deformity of the radial metaphysis with cortical irregularity compatible with acute fracture. Osteopenia is noted. Sclerosis and cystic change is noted of the lunate. IMPRESSION: Mildly impacted acute distal radius fracture. Reviewed, Interpreted and Dictated by Jaqueline Hubbard MD Transcribed by Mayra Rios Authenticated and [facility]
--- NOTE | 2024-10-21 12:12 | XR_ITS ---
FINAL REPORT CLINICAL HISTORY: pain COMPARISON: None FINDINGS: Three views of the right hand show a mildly impacted deformity of the radial metaphysis with cortical irregularity compatible with acute fracture. Osteopenia is noted. There is moderate joint space narrowing diffusely. Sclerosis and cystic change is noted of the lunate. IMPRESSION: Mildly impacted acute distal radius fracture. Reviewed, Interpreted and Dictated by Jaqueline Hubbard MD Transcribed by Mayra Rios Authenticated and [facility]
--- NOTE | 2024-10-21 12:13 | ED_ITS ---
<Statement entered by Juvencio Adair MD - 10/21/24 20:54> I was consulted by the VENUS, and we discussed the complexity of the problems being addressed. I approve the treatment and management plan for this patient's care in the emergency department, thus performing a substantive portion of the medical decision making. Juvencio Adair MD Discharge Plan Disposition Patient Disposition: Home, Self-Care Prescriptions Prescriptions: No Action bumetanide 2 mg tablet 2 mg PO BID Qty: 60 3RF pregabalin 75 mg capsule 75 mg PO TID (DME) BD AutoShield Duo Pen Needle 30 gauge x 3/16 needle See Rx Instructions .ROUTE .MEDSUPPLY Qty: 100 Rx Instructions: As directed venlafaxine 75 mg capsule,extended release 24hr 75 mg PO DAILY fexofenadine 60 mg tablet 60 mg PO DAILY tramadol 50 mg tablet 50 mg PO DAILY levothyroxine 100 mcg tablet 100 mcg PO DAILY docusate sodium 100 mg capsule 100 mg PO clobetasol 0.05 % shampoo topical ergocalciferol (vitamin D2) 1,250 mcg (50,000 unit) capsule 1,250 mcg PO DIRECTED Patient Comments: TAKE 1 CAPSULE BY MOUTH EVERY TWO WEEKS (TWICE A MONTH) Rx Instructions: EVERY OTHER WEEK (DME) AutoShield Duo Pen Needle 30 gauge x 3/16 needle See Rx Instructions .ROUTE .MEDSUPPLY Qty: 100 Rx Instructions: As directed Mounjaro 12.5 mg/0.5 mL pen injector SQ albuterol sulfate 90 mcg/actuation HFA aerosol inhaler 2 puff INHALATION Q4HP PRN (Reason: Shortness Of Breath Or Wheezing) multivitamin Tablet 1 tab PO DAILY omeprazole 40 mg Capsule,Delayed Release(Dr/Ec) 40 mg PO HS icosapent ethyl [Vascepa] 1 gram Capsule 1 g PO BID docusate sodium 100 mg Tablet 100 mg PO BID ferrous sulfate 324 mg (65 mg iron) Tablet,Delayed Release (Dr/Ec) 324 mg PO DAILY Eliquis 5 mg Tablet 5 mg PO BID nitroglycerin 0.4 mg Tablet, Sublingual 0.4 mg SUBLINGUAL Q5MINP PRN (Reason: Chest Pain) Rx Instructions: do not exceed 3 doses per episode insulin lispro 100 unit/mL Insulin Pen 0 sliding scale dose SQ ACHS Rx Instructions: 101-150 3 UNITS 151-200 4 UNITS 201-250 6 UNITS 251-300 9 UNITS 301-350 12 UNITS 351-400 15 UNITS albuterol sulfate 2.5 mg /3 mL (0.083 %) Solution For Nebulization 2.5 mg inhalation Q4HP PRN (Reason: shortness of air or wheezing) acetaminophen 500 mg Tablet 500 mg PO AC paroxetine HCl [Paxil] 40 mg Tablet 40 mg PO HS spironolactone 50 mg tablet 50 mg PO DAILY rosuvastatin 10 mg tablet 10 mg PO HS Trelegy Ellipta 100-62.5-25 mcg blister with device 1 inh INHALATION DAILY polyethylene glycol 3350 17 gram/dose powder 17 g PO DAILY clopidogrel 75 mg Tablet 75 mg PO DAILY ondansetron 4 mg Tablet,Disintegrating 4 mg PO Q8HP PRN (Reason: Nausea And Vomiting) insulin glargine [Lantus Solostar U-100 Insulin] 100 unit/mL (3 mL) Insulin Pen 14 unit SQ HS Referrals Follow up/Referrals: Grant Julio DO [Staff Physician, Orthopedics] - See instructions Kristian Bynum MD [Primary Care Provider, Internal Medicine] - See instructions Activity Restrictions/Add. Instructions Additional Instructions/Restrictions: Please do not get the splint wet. Please follow-up with Ortho for a permanent cast. Clinical Impressions Clinical Impression: Radial fracture Instructions Patient Instructions: Forearm Fracture Print Language Print Language: French Discharge ED Provider: Juvencio Adair General Adult HPI General Chief complaint: PAIN Stated complaint: Fall Time Seen by Provider: 10/21/24 12:08 History of Present Illness HPI narrative: 73-year-old female presents to the ED via EMS for right wrist and hand pain. She fell last or Sunday and hurt her hand. She states that she had the shelter x-ray of her hand. She says it came back and her hand is broken. They made an appointment for her and it is not until this to have it casted. She says that the shelter decided that it would be too late for her to wait to have it casted. So they sent her to the ER. Patient says she has not been using her hand much because it does hurt. Related Data Home Medications ?Medication ?Instructions ?Recorded ?Confirmed ergocalciferol (vitamin D2) 1,250 1,250 mcg PO DIRE CTED 08/12/20 10/16/24 mcg (50,000 unit) capsule albuterol sulfate 90 mcg/actuation 2 puff inhalation Q 4HP PRN 12/18/22 10/16/24 aerosol inhaler Shortness Of Breath Or Wheez ing apixaban 5 mg tablet (Eliquis) 5 mg PO BID 12/18/22 docusate sodium 100 mg tablet 100 mg PO BID 12/18/22 0 10/16/24 ferrous sulfate 324 mg (65 mg 324 mg PO DAILY 12/18/22 10/16/24 iron) tablet,delayed release icosapent ethyl 1 gram capsule 1 g PO BID 12/18/2212/30 (Vascepa) insulin lispro 100 unit/mL 0 sliding scale dose SQ ACH S 12/18/22 10/16/24 subcutaneous pen Diabetes multivitamin 1 tab PO DAILY 12/18/2210/06 nitroglycerin 0.4 mg sublingual 0.4 mg sublingual Q5MI [employer] PRN Chest 12/18/22 10/16/24 tablet Pain omeprazole 40 mg capsule,delayed 40 mg PO HS 12/18/22 10/16/24 release acetaminophen 500 mg tablet 500 mg PO AC 12/19/2210/06 albuterol sulfate 2.5 mg/3 mL 2.5 mg inhalation Q4HP P RN 12/19/22 10/16/24 (0.083 %) solution for nebulization shortness of air o r wheezing clopidogrel 75 mg tablet 75 mg PO DAILY 03/18/2310/06 insulin glargine 100 unit/mL (3 14 unit SQ HS Diabetes 04/19/23 10/16/24 mL) subcutaneous pen (Lantus Solostar U-100 Insulin) ondansetron 4 mg disintegrating 4 mg PO Q8HP PRN Nause a And 04/19/23 10/16/24 tablet Vomiting fluticasone fur. 100 mcg-umeclid 1 inh inhalation JACI Y 08/13/23 10/16/24 62.5 mcg-vilant 25 mcg inhalat.powder (Trelegy Ellipta) paroxetine HCl 40 mg tablet (Paxil) 40 mg PO HS 10/16/24 rosuvastatin 10 mg tablet 10 mg PO HS 08/13/23 5 spironolactone 50 mg tablet 50 mg PO DAILY 08/13/23 polyethylene glycol 3350 17 17 g PO DAILY 08/14/2312/30 gram/dose oral powder pen needle,diabetic dual safty 30 #100 ea 09/17/2312/30 gauge x 3/16 (BD AutoShield Duo Pen Needle) pregabalin 75 mg capsule 75 mg PO TID 09/17/23 clobetasol 0.05 % shampoo topical 09/12/24 10/16/24 docusate sodium 100 mg capsule 100 mg PO 09/12/2410/06 fexofenadine 60 mg tablet 60 mg PO DAILY 09/12/2410/06 levothyroxine 100 mcg tablet 100 mcg PO DAILY 09/12/24 10/16/24 tramadol 50 mg tablet 50 mg PO DAILY 09/12/2410/06 venlafaxine 75 mg capsule,extended 75 mg PO DAILY 09/2910/16/24 release 24 hr pen needle, diabetic, safety 30 #100 ea 10/16/2410/16 gauge x 3/16 (AutoShield Duo Pen Needle) tirzepatide 12.5 mg/0.5 mL mg SQ 10/16/24 10/16/24 subcutaneous pen injector (Heather) Previous Rx's ?Medication ?Instructions ?Recorded bumetanide 2 mg tablet 2 mg PO BID #60 tabs 4 Allergies Allergy/AdvReac Type Severity Reaction Status Date / Time cephalexin Allergy Hives Verified 10/16/24 10:47 Penicillins Allergy Hives Verified 10/16/24 10:47 [facility] Disclaimer: The information contained in this section may have been updated after the patient was seen, as this information can be updated by other users. Medical History Non-healing wound of left lower extremity Moderate aortic stenosis Moderate tricuspid regurgitation (HFpEF) heart failure with preserved ejection fraction PAD (peripheral artery disease) Swelling of both lower extremities Coronary artery disease Cellulitis of left lower leg Itchy skin Nausea and vomiting in adult patient Acute on chronic respiratory failure with hypoxemia Accidental overdose Chronic respiratory failure with hypoxia and hypercapnia Lung nodule Rotator cuff arthropathy of right shoulder Acute anterior epistaxis Chronic hypoxemic respiratory failure O2 dependent Nodule of left lung Heart attack Encounter for screening for malignant neoplasm of lung COPD mixed type History of smoking 30 or more pack years Dyspnea Bilateral hearing loss due to cerumen impaction Encounter for removal of nasal packing CAD in [place] artery Cardiomyopathy Non-STEMI (non-ST elevated myocardial infarction) Right ventricular dilation Coronary artery disease HFrEF (heart failure with reduced ejection fraction) Pneumonia Diabetes mellitus, type 2 Iron deficiency anemia Pulmonary hypertension Osteoporosis Major depressive disorder Heart failure Depression Lymphedema Insomnia Class 2 obesity due to excess calories with body mass index (BMI) of 39.0 to 39.9 in adult Fibromyalgia Congestive heart failure Atrial fibrillation Anxiety HTN (hypertension) HLD (hyperlipidemia) COPD (chronic obstructive pulmonary disease) BMI 30.0-30.9,adult Osteoarthritis Callus of foot Paresthesia of both lower extremities Onychodystrophy Onychomycosis Diabetic foot Surgical History History of coronary artery stent placement History of bladder surgery H/O: hysterectomy H/O hernia repair Family History Other Diabetes Hyperlipidemia Hypertension No significant family history Social History Smoking Status: Never smoker alcohol intake: never substance use type: denies use current occupational status: retired and disabled Travel in the last 8 weeks?: None housing: shelter lives independently: No shelter: Yes caffeine: Yes Have you lived/traveled outside US in past 30 days?: No Contact w/someone who lives/traveled outside US past 30 days?: No Exposure to someone with infectious disease in past 14 days?: No Do you have a fever (greater than 100.4 F or 38 C)?: No Have you tested positive for COVID-19?: No Exposed to someone with COVID-19 in past 14 days?: No Do you have a sore throat?: No Do you have a cough?: No Do you have any weakness?: No Do you have any diarrhea?: No Are you experiencing any unusual bleeding?: No Do you have any muscle aches/pain?: No Do you have any abdominal pain?: No Are you experiencing loss of taste or smell?: No Other Medical History Have you received the Flu Vaccine for this season: No Have you received the Pneumonia Vaccine: Yes ROS Obtained: Yes Systems reviewed as appropriate & no additional complaints except as documented Constitutional Constitutional: Reports as per HPI Physical Exam General General appearance: alert Head Head exam: normocephalic Eye Eye exam: Present PERRL and EOMI ENT ENT exam: Present normal oropharynx and mucous membranes moist Neck Neck exam: Present full ROM and trachea midline Respiratory Respiratory exam: Present normal lung sounds bilaterally Cardiovascular Cardiovascular exam: Present regular rate, normal rhythm, normal heart sounds, +S1 and +S2 Extremities Exam Extremities exam: Present tenderness (Right hand pain) and edema Neurological Exam Neurological exam: Present alert and oriented X3 Skin Skin exam: Present warm, dry and intact Medical Decision Making Medical Records Screening: Per USPSTF and CDC recommendations, given the prevalence of disease in our region, it is our hospital?s policy to screen for HIV and viral Hepatitis for all patients aged 18 and over and those with ongoing risk factors. Tj Inquiry Pt receiving controlled substance: No Tj was queried for this patient: No Vital Signs: 10/21/24 12:12 10/21/24 12:19 10/21/24 12:30 Temperature 98.5 F 98.5 F Temperature Source Oral Oral Pulse Rate 71 66 Pulse Rate [Right] 71 Respiratory Rate 18 18 Blood Pressure 147/76 H 157/87 H Blood Pressure [Right Arm] 147/76 H Blood Pressure Mean 110 Blood Pressure Mean [Right Arm] 99 Blood Pressure Source Automatic Cuff Blood Pressure Source [Right Arm] Automatic Cuff Blood Pressure Position Supine Blood Pressure Position [Right Arm] Supine 02 Sat by Pulse Oximetry 95 95 99 Oxygen Delivery Method Room Air Nasal Cannula Oxygen Flow Rate (LPM) 3 3 10/21/24 14:49 Temperature 98.6 F Temperature Source Oral Pulse Rate 82 Pulse Rate [Right] Respiratory Rate 17 Blood Pressure 125/67 Blood Pressure [Right Arm] Blood Pressure Mean Blood Pressure Mean [Right Arm] Blood Pressure Source Automatic Cuff Blood Pressure Source [Right Arm] Blood Pressure Position Supine Blood Pressure Position [Right Arm] 02 Sat by Pulse Oximetry Oxygen Delivery Method Nasal Cannula Oxygen Flow Rate (LPM) 3 Orders (Tests/Meds): ORDERS Category Date Time Status Hand XR right minimum 3 views [XR hand RT min 3V] Stat Exams 10/21/24 12:12 Completed Wrist XR right minimum 3 views [XR wrist RT min 3V] Exams 10/21/24 12:12 Completed Stat Medical Decision Narrative: patient is a 73-year-old female presenting to the emergency department for evaluation of right wrist and hand pain. Patient is hemodynamically stable and nontoxic-appearing upon arrival, afebrile. Differential diagnosis includes right hand and wrist pain, fracture versus sprain or strain. Workup will be conducted with specific imaging. Initial inventions include analgesics. Patient has a right impacted distal radius fracture read by the radiologist. Volar splint placed by Noé. patient also referred to Dr. Julio for a cast placement. Patient with good pulses. Patient safe for discharge home. Discussed with patient meds. Procedures Orthopedic Splinting/Casting Injury #1: Side: right Upper Extremity Injury Location: wrist Upper Extremity Immobilizer: volar splint Post Cast/Splinting Neuro Status: intact Post Cast/Splinting Vasc Status: intact Critical Care Critical Care Time Critical Care Time: No
--- OUTSIDE RECORDS SUMMARY | 2024-10-21 12:16 | XMS_ITS | Clinical Summary ---
Author Organization Healthcare Address [address] [place] [address] Care Team Providers Care Layer Off Name Role Phone Tone Ward MD Primary Care Provider [phone] Allergies Active Allergy Reactions Criticality Noted Date [...] 5 Active ergocalciferol (Vitamin D-2) 1.25 MG (15237 UT) capsule Take 1 capsule by mouth [...] any time in the past 12 m [facility], were you homeless or living in a half-way (including now)? No 05/26/2024 Utilities Answer Date Recorded In the past 12 months has th e electric, gas, oil, or water [employer] threatened to shut off services in your [...] [facility]-Colorectal Cancer Screening 01/27/2016 [facility]-Diabetes: Hemoglobin A1C 10/29/2022, 10/25/2021, 08/23/2017, Additional history exists [id number] Vaccine (6 - Moderna risk ) 10/06/2024 11/12/2023, 05/17/2021, 12/13/2020, Additional history exists [facility]-Influenza [...] Antibody Negative Negative 05/23/2024 3:32 AM EDT [facility] Blood Venous blood specimen / Unknown Venipuncture / Unknown 05/23/2024 2:42 AM EDT 05/23/2024 2:51 AM EDT us Cruz Montgomery MD LAB BLOOD ORDERABLES Final Re sult [facility] [address] [place] [address] * (ABNORMAL) Hemoglobin A1c (08/13/2015 3:32 AM [...] 3:32 AM EDT 08/13/2015 3:48 AM EDT [facility] Provider LAB BLOOD ORDERABLES Final R esult SUNQUEST from Last 3 Months or Most Recently Relevant to Health Maintenance Additional Health Concerns Infection Onset Date Last Indicated MRSA 05/26/2024 05/26/2024 Insurance MEDICA[place] MEDICARE Advance Directives * Full Code (Latest Code Status on File) Date Activated Date Inactivated Comments 05/23/2024 3:12 AM 06/02/2024 11:44 AM Question Answer Comments I have reviewed the capacity from the link above and, if needed, have updated to appropriate status: Yes Care Teams Layer Off Relationship Specialty Start Date End Date Tone Ward MD [address] [place] [address] PCP - General 06/18/20
--- OUTSIDE RECORDS SUMMARY | 2024-10-21 12:16 | XMS_ITS | Clinical Summary ---
Author Organization [facility] Address [address] [place] [address] Phone Care Team Providers Care Cableman Name Role Phone Delfino Valdez MD [ ] Conditions or Problems Problem Name Problem Code Onset Date Status Entry Date Provider Comment Standard Description Annotate Chronic venous stasis disease 56776098 (SNOMED CT) Active 04/27 Adri Prabhakar Stasis dermatitis DM II with diabetic PVD 056555843 (SNOMED CT) Active 04/27 Adri Prabhakar Peripheral [...] II with peripheral vascular disorder, with gangrene 189213584 (SNOMED CT) Active 03/13 Sharyn W Peripheral circulatory disorder due to type 2 diabetes mellitus Skin tissue necrosis 98158369 (SNOMED CT) Inactive 03/13 Sharyn W Skin necrosis Abrasion, left lower leg, subsequent encounter S80.812D (ICD-10-CM) Inactive 03/13 Sharyn W Abrasion, left lower leg, subsequent encounter Cellulitis, leg, right 991813925 (SNOMED CT) Active 03/13 Adri Prabhakar Cellulitis of lower limb Skin tissue necrosis 11508031 (SNOMED CT) Removed 03/13 Adri Prabhakar Skin necrosis Cellulitis, leg, left 052009088 (SNOMED CT) Active 03/13 Adri Prabhakar Cellulitis of lower limb Abrasion, left lower leg, subsequent encounter S80.812D (ICD-10-CM) Removed 03/13 Adri Prabhakar Abrasion, left lower leg, subsequent encounter DM II with diabetic PVD 016224056 (SNOMED CT) Inactive 03/13 Adri Prabhakar Peripheral vascular disease DM, type II, poorly controlled E11.65 (ICD-10-CM) Active 03/13 Adri Prabhakar Type 2 diabetes mellitus with hyperglycemia Hx of falling 640179862 (SNOMED CT) Active 03/13 Adri Prabhakar History of fall Other obesity due to excess calories 333003869 (SNOMED CT) Active 03/13 Jenn Back Simple obesity Medications Medication Instructions Start Date Stop Date Generic Name NDC Provider DOXYCYCLINE HYCLATE 100 MG TABS Take one pill twice daily. DOXYCYCLINE HYCLATE 09370309274 Delfino Valdez MD DOXYCYCLINE MONOHYDRATE 100 MG TABS Take one pill twice daily. DOXYCYCLINE MONOHYDRATE 58223995514 Delfino Valdez MD DIAZEPAM GEL twice a day in the morning and before bed DIAZEPAM GEL 44961973509 Katie Elkins CELEXA 40 MG TABS Take 1 tablet by mouth daily at bedtime CITALOPRAM HYDROBROMIDE 63694703570 Katie Elkins HYDROCODONE-ACETAM INOPHEN 5-325 MG TABS prn HYDROCODONE-ACETA MINOPHEN 56236808074 Katie Elkins HYDROXYZINE HCL 50 MG TABS Take one (1) tablet by mouth three times a day HYDROXYZINE HCL 15600329554 Katie Elkins TIZANIDINE HCL 4 MG CAPS Take one (1) tablet by mouth twice a day prn TIZANIDINE HCL 66430690424 Katie Elkins FUROSEMIDE 40 MG TABS Take one (1) tablet by mouth three times a day FUROSEMIDE 99146840426 Katie Elkins ATORVASTATIN CALCIUM 80 MG TABS Take 1 tablet by mouth daily at bedtime ATORVASTATIN CALCIUM 39766044617 Katie Elkins HM MAGNESIUM 400 MG ORAL TABLET Take 1 tablet by mouth daily MAGNESIUM OXIDE 57595041631 Katie Elkins INVOKANA 100 MG TABS Take 1 tablet by mouth daily in the morning CANAGLIFLOZIN 15015146279 Katie Elkins METFORMIN HCL 1000 MG TABS Take one (1) tablet by mouth twice a day METFORMIN HCL 57252576435 Katie Elkins AMBIZINE 25 MG ORAL TABLET prn MECLIZINE HCL 44565912576 Katie K DICYCLOMINE HCL 10 MG CAPS prn DICYCLOMINE HCL 29505197978 Katie Elkins LISINOPRIL 10 MG TABS Take 1 tablet by mouth daily LISINOPRIL 77969698787 Katie K ASPIRIN 325 MG TABS ASPIRIN 32892436935 Katie K LANTUS SOLOSTAR 100 UNIT/ML SOPN 50 units at bedtime INSULIN GLARGINE 09963208446 Katie K VENTOLIN HFA 108 (90 Base) MCG/ACT AERS 2 puffs prn ALBUTEROL SULFATE 06796844676 Katie K SYMBICORT 160-4.5 MCG/ACT AERO 2 puffs twice daily prn BUDESONIDE-FORMOT SKYE FUMARATE 30678607040 Katie K AMITRIPTYLINE HCL 25 MG TABS Take 1 tablet by mouth daily at bedtime AMITRIPTYLINE HCL 21621711977 Katie Severo *NEEDS MED LIST UPDATE -SEE LIST* 04/03 *NEEDS MED LIST UPDATE -SEE LIST* Katie Elkins DAKINS SOLUTION DAKINS SOLN [id number] Andrew Elias *NEEDS MED LIST UPDATE -SEE LIST* 04/03 *NEEDS MED LIST UPDATE -SEE LIST* Andrew Elias DOXYCYCLINE HYCLATE 100 MG CAPS take 1 cap po BID DOXYCYCLINE HYCLATE 72664863909 Dlefino Valdez MD ACETAMINOPHEN 325 MG TABS Take 2 tabs by mouth daily as needed 03/14 ACETAMINOPHEN 92699510371 Delfino Valdez MD BACTRIM DS 800-160 MG TABS Take one (1) tablet by mouth twice a day 03/14 SULFAMETHOXAZOLE- TRIMETHOPRIM 48646611119 Delfino Valdez MD ATORVASTATIN CALCIUM 20 MG TABS 1 tab by mouth qhs 03/14 ATORVASTATIN CALCIUM 00567576843 Delfino Valdez MD BUMETANIDE 1 MG TABS Take 2 tabs by mouth every 12 hours 03/14 BUMETANIDE 65192367311 Delfino Valdez MD DAKINS (1/4 STRENGTH) 0.125 % SOLN 1 application twice daily 03/14 DAKINS 52569250233 Delfino Valdez MD NOVOLOG 100 UNIT/ML SUBCUTANEOUS SOLUTION Inject subQ with meals 03/14 INSULIN ASPART 49991872373 Delfino Valdez MD KLOR-CON 10 10 MEQ CR-TABS Take 4 tabs by mouth daily 03/14 POTASSIUM CHLORIDE 89369984222 Delfino Valdez MD VITAMIN D2 50 MCG (1999 UT) TABS 50,000 one cap a month ERGOCALCIFEROL 20816541220 Jenn Back KLOR-CON 10 10 MEQ CR-TABS Take 4 tabs by mouth daily 5/0 7/01 POTASSIUM CHLORIDE 80641732166 Jenn Back OXYCODONE HCL 5 MG TABS Take 2 tabs every 6 hours as needed OXYCODONE HCL 51427406123 Jenn Back OMEPRAZOLE 40 MG CPDR Take 1 tablet by mouth daily OMEPRAZOLE 77649233992 Jenn Back METHOCARBAMOL 500 MG TABS Take 0.5 tab by mouth every 6 hours METHOCARBAMOL 50352487212 Jenn Back MELATONIN 3 MG TABS Take 2 tabs by mouth qhs MELATONIN 91567075138 Jenn Back LIDOCAINE HCL 2 % EXTERNAL GEL Apply topically as needed LIDOCAINE HCL 74488975390 Jenn Back LEVOCETIRIZINE DIHYDROCHLORIDE 5 MG TABS Take 1 tab by mouth at night LEVOCETIRIZINE DIHYDROCHLORIDE 92350555836 Jenn Back NOVOLOG 100 UNIT/ML SUBCUTANEOUS SOLUTION Inject subQ with meals 05/06 INSULIN ASPART 34912534371 Jenn Back GABAPENTIN 300 MG CAPS Take one (1) tablet by mouth three times a day GABAPENTIN 83568431027 Jenn Back FOLIC ACID 1 MG TABS Take 1 tablet by mouth daily FOLIC ACID 32527993513 Jenn Back BREO ELLIPTA 100-25 MCG/ACT AEPB Inhale 1 puff daily FLUTICASONE FUROATE-VILANTERO L 03434670846 Jenn Back DULCOLAX STOOL SOFTENER 100 MG CAPS 1 supp as needed DOCUSATE SODIUM 25142554638 Jenn Back DAKINS (1/4 STRENGTH) 0.125 % SOLN 1 application twice daily 05/06 DAKINS 75010138144 Jenn Back CELEXA 20 MG TABS Take 2 tabs by mouth daily CITALOPRAM HYDROBROMIDE 52727751535 Jenn Back BUMETANIDE 1 MG TABS Take 2 tabs by mouth every 12 hours 08/05 BUMETANIDE 17931006404 Jenn Back BACTRIM DS 800-160 MG TABS Take one (1) tablet by mouth twice a day 4 SULFAMETHOXAZOLE- TRIMETHOPRIM 30939005365 Jenn Back ATORVASTATIN CALCIUM 20 MG TABS 1 tab by mouth qhs 207 ATORVASTATIN CALCIUM 28984689551 Jenn Back ADULT ASPIRIN EC LOW STRENGTH 81 MG ORAL TABLET DELAYED RELEASE Take 1 tablet by mouth daily ASPIRIN 72765706772 Jenn Back AMITRIPTYLINE HCL 25 MG TABS Take by mouth every hour 04/03 AMITRIPTYLINE HCL 65831033157 Jenn Back ALBUTEROL SULFATE (2.5 MG/3ML) 0.083% NEBU Inhale 3mL every 6 hours as needed ALBUTEROL SULFATE 02327368453 Jenn Back ACETAMINOPHEN 325 MG TABS Take 2 tabs by mouth daily as needed 03/14 ACETAMINOPHEN 27553542604 Jenn Back Medications Administered No information available. Allergies, Adverse Reactions, Alerts Allergy Name Reaction Description Start Date Severity Statu s Provider PENICILLIN Moderate Active Jenn Back KEFLEX Moderate Active Jenn Back Results Date Name Value Unit Range Flag Description Office Visit: Room 8 MEDS REVIEW Done Documenta tion of current medications (procedure) DIET MERCHANDISING PROFESSOR yes Dietary management education, guidance, and counseling [...] Date CPT-Cooral Continue oral antibiotics 20 21/01/07 11681 Hepatitis C Atb: (ICD 10 Code: Z72.89) [...]
[2024-10-21 12:19] VITALS: BP 147/76; PULSE 71; RESP 18; TEMP 36.9; O2SAT 95
[2024-10-21 12:30] VITALS: BP 157/87; PULSE 66; O2SAT 99
--- OUTSIDE RECORDS SUMMARY | 2024-10-21 13:16 | XMS_ITS | CCD ---
Author Organization Unknown Care Team Providers Care Steel Layout Worker Name Role Phone Unavailable Primary Care Provider Unavailabl e Unavailable Chronic Care Management Unavaila ble Summary Purpose DataExchange Insurance Providers Payer name Policy type / Coverage type Covered green party ID Effective Begin Date Effective End Date [facility] [id number] Unknown Unknown Family History Family History data not found Medication Administered No Medication Administered data Reason For Visit No Reason For Visit data Medical Equipment No Medical Equipment data Advance Directives No Advance Directive data
--- NOTE | 2024-10-21 14:04 | PC.NURSE ---
Called report to Mayra at [facility].
--- NOTE | 2024-10-21 14:09 | PC.NURSE ---
Called EMS and made the aware of the transfer of this pt ready to be sent back. Once the other truck gets back in town they would be on there way up to pick them up
[2024-10-21 14:49] VITALS: BP 125/67; PULSE 82; RESP 17; TEMP 37; O2SAT 94
== END 2024-10-21 14:51 | disposition home or self-care (01) ==
PROVIDERS: Emergency Provider Student in an Organized Health Care Education/Training Program; PCP Internal Medicine Adolescent Medicine
DX: S52.501A Unspecified fracture of the lower end of right radius, initial encounter for closed fracture (principal); M79.641 Pain in right hand; W19.XXXA Unspecified fall, initial encounter
CPT/HCPCS: 29125; 73110; 73130; 99284

== ENCOUNTER 2024-11-04 08:50 | Outpatient (CLI) | payer MEDICARE, MEDICAID, SELFPAY ==
--- OUTSIDE RECORDS SUMMARY | 2024-11-04 08:54 | XMS_ITS | Clinical Summary ---
Author Organization Healthcare Address [address] [place] [address] Care Team Providers Care Stain Remover Name Role Phone Tone Ward MD Primary Care Provider [phone] Allergies Active Allergy Reactions Criticality Noted Date [...] 5 Active ergocalciferol (Vitamin D-2) 1.25 MG (01718 UT) capsule Take 1 capsule by mouth [...] any time in the past 12 m [facility], were you homeless or living in a long term (including now)? No 05/26/2024 Utilities Answer Date Recorded In the past 12 months has th e electric, gas, oil, or water [employer] threatened to shut off services in your [...] A1C 10/29/2022, 10/25/2021, 08/23/2017, Additional history exists [id number] Vaccine (6 - Moderna risk ) 10/06/2024 [...] Antibody Negative Negative 05/23/2024 3:32 AM EDT [facility] Blood Venous blood specimen / Unknown Venipuncture / Unknown 05/23/2024 2:42 AM EDT 05/23/2024 2:51 AM EDT us Cruz Montgomery MD LAB BLOOD ORDERABLES Final Re sult [facility] [address] [place] [address] * (ABNORMAL) Hemoglobin A1c (08/13/2015 3:32 AM [...] 3:32 AM EDT 08/13/2015 3:48 AM EDT [facility] Provider LAB BLOOD ORDERABLES Final R esult SUNQUEST from Last 3 Months or Most Recently Relevant to Health Maintenance Additional Health Concerns Infection Onset 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
[2024-11-04 09:18] LABS: Blood Urea Nitrogen 13 mg/dl (7-17); Creatinine,Serum 0.80 mg/dl (0.52-1.04); Estimated Glomerular Filt Rate 70 ml/min (>60); GFR (African American) 85 ML/MIN (>60)
--- OUTSIDE RECORDS SUMMARY | 2024-11-04 09:53 | XMS_ITS | CCD ---
Author Organization Unknown Care Team Providers Care Behavioral Instructor Name Role Phone Unavailable Primary Care Provider Unavailabl e Unavailable Chronic Care Management Unavaila ble Summary Purpose DataExchange Insurance Providers Payer name Policy type / Coverage type Covered constitution party ID Effective Begin Date Effective End Date [facility] [id number] Unknown Unknown Family History Family History data not found Medication Administered No Medication Administered data Reason For Visit No Reason For Visit data Medical Equipment No Medical Equipment data Advance Directives No Advance Directive data
== END 2024-11-04 23:59 | disposition home or self-care (01) ==
LOC: RAD 08:51
PROVIDERS: PCP Family Medicine; Visit Provider Physician Assistant
DX: I70.213 Atherosclerosis of native arteries of extremities with intermittent claudication, bilateral legs (principal)
CPT/HCPCS: 82565; 84520

== ENCOUNTER 2024-11-06 09:53 | Outpatient (CLI) | payer MEDICARE, MEDICAID, SELFPAY ==
--- NOTE | 2024-11-06 09:58 | XR_ITS ---
FINAL REPORT CLINICAL HISTORY: right wrist fx follow up COMPARISON: 10/21/2024 FINDINGS: RIGHT WRIST Three views demonstrate a transverse fracture of the distal radial metaphysis, mildly impacted. Overlying splint obscures bony view. There is increased callus formation at the fracture margin. Mild hypertrophic changes are noted of the basilar joint. The soft tissues are unremarkable. IMPRESSION: Progressive healing partially impacted fracture. Reviewed, Interpreted and Dictated by Roque Cantu MD Transcribed by Mayra Rios [facility]henticated and [facility]
--- OUTSIDE RECORDS SUMMARY | 2024-11-06 10:00 | XMS_ITS | Clinical Summary ---
Author Organization [facility] Address [address] [place] [address] Phone Care Team Providers Care Color Repairer Name Role Phone Delfino Valdez MD [phone] [ ] Conditions or Problems Problem Name Problem Code Onset Date Status Entry Date Provider Comment Standard Description Annotate Chronic venous stasis disease 09825023 (SNOMED CT) Active 04/27 Adri Prabhakar Stasis dermatitis DM II with diabetic PVD 148206064 (SNOMED CT) Active 04/27 Adri Prabhakar Peripheral [...] II with peripheral vascular disorder, with gangrene 665369491 (SNOMED CT) Active 03/13 Sharyn W Peripheral circulatory disorder due to type 2 diabetes mellitus Skin tissue necrosis 28314771 (SNOMED CT) Inactive 03/13 Sharyn W Skin necrosis Abrasion, left lower leg, subsequent encounter S80.812D (ICD-10-CM) Inactive 03/13 Sharyn W Abrasion, left lower leg, subsequent encounter Cellulitis, leg, right 231657794 (SNOMED CT) Active 03/13 Adri Prabhakar Cellulitis of lower limb Skin tissue necrosis 37709250 (SNOMED CT) Removed 03/13 Adri Prabhakar Skin necrosis Cellulitis, leg, left 683029793 (SNOMED CT) Active 03/13 Adri Prabhakar Cellulitis of lower limb Abrasion, left lower leg, subsequent encounter S80.812D (ICD-10-CM) Removed 03/13 Adri Prabhakar Abrasion, left lower leg, subsequent encounter DM II with diabetic PVD 497379240 (SNOMED CT) Inactive 03/13 Adri Prabhakar Peripheral vascular disease DM, type II, poorly controlled E11.65 (ICD-10-CM) Active 03/13 Adri Prabhakar Type 2 diabetes mellitus with hyperglycemia Hx of falling 447415284 (SNOMED CT) Active 03/13 Adri Prabhakar History of fall Other obesity due to excess calories 075959383 (SNOMED CT) Active 03/13 Jenn Back Simple obesity Medications Medication Instructions Start Date Stop Date Generic Name NDC Provider DOXYCYCLINE HYCLATE 100 MG TABS Take one pill twice daily. DOXYCYCLINE HYCLATE 03587043814 Delfino Valdez MD DOXYCYCLINE MONOHYDRATE 100 MG TABS Take one pill twice daily. DOXYCYCLINE MONOHYDRATE 59044434290 Delfino Valdez MD DIAZEPAM GEL twice a day in the morning and before bed DIAZEPAM GEL 76368919003 Katie Elkins CELEXA 40 MG TABS Take 1 tablet by mouth daily at bedtime CITALOPRAM HYDROBROMIDE 21127723747 Katie Elkins HYDROCODONE-ACETAM INOPHEN 5-325 MG TABS prn HYDROCODONE-ACETA MINOPHEN 08477747294 Katie Elkins HYDROXYZINE HCL 50 MG TABS Take one (1) tablet by mouth three times a day HYDROXYZINE HCL 28626226608 Katie Elkins TIZANIDINE HCL 4 MG CAPS Take one (1) tablet by mouth twice a day prn TIZANIDINE HCL 28296697812 Katie Elkins FUROSEMIDE 40 MG TABS Take one (1) tablet by mouth three times a day FUROSEMIDE 05869981009 Katie Elkins ATORVASTATIN CALCIUM 80 MG TABS Take 1 tablet by mouth daily at bedtime ATORVASTATIN CALCIUM 24005417595 Katie Elkins HM MAGNESIUM 400 MG ORAL TABLET Take 1 tablet by mouth daily MAGNESIUM OXIDE 06696626677 Katie Elkins INVOKANA 100 MG TABS Take 1 tablet by mouth daily in the morning CANAGLIFLOZIN 07651260298 Katie Elkins METFORMIN HCL 1000 MG TABS Take one (1) tablet by mouth twice a day METFORMIN HCL 03302529423 Katie Elkins AMBIZINE 25 MG ORAL TABLET prn MECLIZINE HCL 87903044798 Katie K DICYCLOMINE HCL 10 MG CAPS prn DICYCLOMINE HCL 14430353060 Katie Elkins LISINOPRIL 10 MG TABS Take 1 tablet by mouth daily LISINOPRIL 11650903368 Katie K ASPIRIN 325 MG TABS ASPIRIN 23434185973 Katie K LANTUS SOLOSTAR 100 UNIT/ML SOPN 50 units at bedtime INSULIN GLARGINE 40157224099 Katie K VENTOLIN HFA 108 (90 Base) MCG/ACT AERS 2 puffs prn ALBUTEROL SULFATE 30478459828 Katie K SYMBICORT 160-4.5 MCG/ACT AERO 2 puffs twice daily prn BUDESONIDE-FORMOT SKYE FUMARATE 83564636399 Katie K AMITRIPTYLINE HCL 25 MG TABS Take 1 tablet by mouth daily at bedtime AMITRIPTYLINE HCL 02752219129 Katie Severo *NEEDS MED LIST UPDATE -SEE LIST* 04/03 *NEEDS MED LIST UPDATE -SEE LIST* Katie Elkins DAKINS SOLUTION DAKINS SOLN 43503775119 Andrew Elias *NEEDS MED LIST UPDATE -SEE LIST* 04/03 *NEEDS MED LIST UPDATE -SEE LIST* Andrew Elias DOXYCYCLINE HYCLATE 100 MG CAPS take 1 cap po BID DOXYCYCLINE HYCLATE 26651003913 Delfino Valdez MD ACETAMINOPHEN 325 MG TABS Take 2 tabs by mouth daily as needed 03/14 ACETAMINOPHEN 51761957379 Delfino Valdez MD BACTRIM DS 800-160 MG TABS Take one (1) tablet by mouth twice a day 03/14 SULFAMETHOXAZOLE- TRIMETHOPRIM 54450731918 Delfino Valdez MD ATORVASTATIN CALCIUM 20 MG TABS 1 tab by mouth qhs 03/14 ATORVASTATIN CALCIUM 97292352539 Delfino Valdez MD BUMETANIDE 1 MG TABS Take 2 tabs by mouth every 12 hours 03/14 BUMETANIDE 07451526854 Delfino Valdez MD DAKINS (1/4 STRENGTH) 0.125 % SOLN 1 application twice daily 03/14 DAKINS 41704114474 Delfino Valdez MD NOVOLOG 100 UNIT/ML SUBCUTANEOUS SOLUTION Inject subQ with meals 03/14 INSULIN ASPART 41177557768 Delfino Valdez MD KLOR-CON 10 10 MEQ CR-TABS Take 4 tabs by mouth daily 03/14 POTASSIUM CHLORIDE 35035516260 Delfino Valdez MD VITAMIN D2 50 MCG (1999 UT) TABS 50,000 one cap a month ERGOCALCIFEROL 45215734711 Jenn Back KLOR-CON 10 10 MEQ CR-TABS Take 4 tabs by mouth daily 5/0 7/01 POTASSIUM CHLORIDE 83345299926 Jenn Back OXYCODONE HCL 5 MG TABS Take 2 tabs every 6 hours as needed OXYCODONE HCL 14313992324 Jenn Back OMEPRAZOLE 40 MG CPDR Take 1 tablet by mouth daily OMEPRAZOLE 81421022850 Jenn Back METHOCARBAMOL 500 MG TABS Take 0.5 tab by mouth every 6 hours METHOCARBAMOL 76913893078 Jenn Back MELATONIN 3 MG TABS Take 2 tabs by mouth qhs MELATONIN 89991597968 Jenn Back LIDOCAINE HCL 2 % EXTERNAL GEL Apply topically as needed LIDOCAINE HCL 64706986335 Jenn Back LEVOCETIRIZINE DIHYDROCHLORIDE 5 MG TABS Take 1 tab by mouth at night LEVOCETIRIZINE DIHYDROCHLORIDE 29943436113 Jenn Back NOVOLOG 100 UNIT/ML SUBCUTANEOUS SOLUTION Inject subQ with meals 05/06 INSULIN ASPART 23283924534 Jenn Back GABAPENTIN 300 MG CAPS Take one (1) tablet by mouth three times a day GABAPENTIN 52318230766 Jenn Back FOLIC ACID 1 MG TABS Take 1 tablet by mouth daily FOLIC ACID 41535733393 Jenn Back BREO ELLIPTA 100-25 MCG/ACT AEPB Inhale 1 puff daily FLUTICASONE FUROATE-VILANTERO L 90675188242 Jenn Back DULCOLAX STOOL SOFTENER 100 MG CAPS 1 supp as needed DOCUSATE SODIUM 02426561246 Jenn Back DAKINS (1/4 STRENGTH) 0.125 % SOLN 1 application twice daily 05/06 DAKINS 83664980214 eJnn Back CELEXA 20 MG TABS Take 2 tabs by mouth daily CITALOPRAM HYDROBROMIDE 99006375918 Jenn Back BUMETANIDE 1 MG TABS Take 2 tabs by mouth every 12 hours 08/05 BUMETANIDE 78965958855 Jenn Back BACTRIM DS 800-160 MG TABS Take one (1) tablet by mouth twice a day 4 SULFAMETHOXAZOLE- TRIMETHOPRIM 15665759630 Jenn Back ATORVASTATIN CALCIUM 20 MG TABS 1 tab by mouth qhs 207 ATORVASTATIN CALCIUM 66277911094 Jenn Back ADULT ASPIRIN EC LOW STRENGTH 81 MG ORAL TABLET DELAYED RELEASE Take 1 tablet by mouth daily ASPIRIN 96894824579 Jenn Back AMITRIPTYLINE HCL 25 MG TABS Take by mouth every hour 04/03 AMITRIPTYLINE HCL 48824399237 Jenn Back ALBUTEROL SULFATE (2.5 MG/3ML) 0.083% NEBU Inhale 3mL every 6 hours as needed ALBUTEROL SULFATE 69768941214 Jenn Back ACETAMINOPHEN 325 MG TABS Take 2 tabs by mouth daily as needed 03/14 ACETAMINOPHEN 66112014088 Jenn Back Medications Administered No information available. Allergies, Adverse Reactions, Alerts Allergy Name Reaction Description Start Date Severity Statu s Provider PENICILLIN Moderate Active Jenn Back KEFLEX Moderate Active Jenn Back Results Date Name Value Unit Range Flag Description Office Visit: Room 8 MEDS REVIEW Done Documenta tion of current medications (procedure) DIET COMPRESS ENGINEER yes Dietary management education, guidance, and counseling [...] Date CPT-Cooral Continue oral antibiotics 20 21/01/07 01914 Hepatitis C Atb: (ICD 10 Code: Z72.89) [...]
--- OUTSIDE RECORDS SUMMARY | 2024-11-06 10:00 | XMS_ITS | Clinical Summary ---
Author Organization Healthcare Address [address] [place] [address] Care Team Providers Care Courtroom Clerk Name Role Phone Tone Ward MD Primary Care Provider [phone] Allergies Active Allergy Reactions Criticality Noted Date [...] 5 Active ergocalciferol (Vitamin D-2) 1.25 MG (94297 UT) capsule Take 1 capsule by mouth [...] any time in the past 12 m [facility], were you homeless or living in a correction (including now)? No 05/26/2024 Utilities Answer Date Recorded In the past 12 months has th e electric, gas, oil, or water [employer] threatened to shut off services in your [...] A1C 10/29/2022, 10/25/2021, 08/23/2017, Additional history exists [id number] Vaccine (6 - Moderna risk ) 10/06/2024 [...] Antibody Negative Negative 05/23/2024 3:32 AM EDT [facility] Blood Venous blood specimen / Unknown Venipuncture / Unknown 05/23/2024 2:42 AM EDT 05/23/2024 2:51 AM EDT us Cruz Montgomery MD LAB BLOOD ORDERABLES Final Re sult [facility] [address] [place] [address] * (ABNORMAL) Hemoglobin A1c (08/13/2015 3:32 AM [...] 3:32 AM EDT 08/13/2015 3:48 AM EDT [facility] Provider LAB BLOOD ORDERABLES Final R esult SUNQUEST from Last 3 Months or Most Recently Relevant to Health Maintenance Additional Health Concerns Infection Onset Date 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
--- OUTSIDE RECORDS SUMMARY | 2024-11-06 11:00 | XMS_ITS | CCD ---
Author Organization Unknown Care Team Providers Care Auto Accessories Installer Name Role Phone Unavailable Primary Care Provider Unavailabl e Unavailable Chronic Care Management Unavaila ble Summary Purpose DataExchange Insurance Providers Payer name Policy type / Coverage type Covered alliance party ID Effective Begin Date Effective End Date [facility] [id number] Unknown Unknown Family History Family History data not found Medication Administered No Medication Administered data Reason For Visit No Reason For Visit data Medical Equipment No Medical Equipment data Advance Directives No Advance Directive data
--- OUTSIDE RECORDS SUMMARY | 2024-11-06 11:00 | XMS_ITS | CCD ---
Author Organization Unknown Care Team Providers Care Grease Machine Worker Name Role Phone Unavailable Primary Care Provider Unavailabl e Unavailable Chronic Care Management Unavaila ble Summary Purpose DataExchange Insurance Providers Payer name Policy type / Coverage type Covered republican ID Effective Begin Date Effective End Date [facility] [id number] Unknown Unknown Family History Family History data not found Medication Administered No Medication Administered data Reason For Visit No Reason For Visit data Medical Equipment No Medical Equipment data Advance Directives No Advance Directive data
== END 2024-11-06 23:59 | disposition home or self-care (01) ==
LOC: RAD 09:55
PROVIDERS: PCP Internal Medicine Adolescent Medicine; Visit Provider Physician Assistant
DX: S52.591D Other fractures of lower end of right radius, subsequent encounter for closed fracture with routine healing (principal)
CPT/HCPCS: 73110

== ENCOUNTER 2024-11-08 23:49 | Emergency (ER) | payer MEDICARE, MEDICAID, SELFPAY ==
--- NOTE | 2024-11-08 23:51 | CT_ITS ---
PROCEDURE INFORMATION: Exam: CTA Head With Contrast, Arteriography Exam date and time: 11/09/2024 1:00 AM Age: 73 years old Clinical indication: Injury or trauma; Additional info: Trauma, critical injury suspected TECHNIQUE: Imaging protocol: Computed tomographic angiography of the head with contrast. Exam focused on the arteries. 3D rendering (Not supervised by radiologist): MIP and/or 3D reconstructed images were created by the technologist. Radiation optimization: All CT scans at this facility use at least one of these dose optimization techniques: automated exposure control; mA and/or kV adjustment per patient size (includes targeted exams where dose is matched to clinical indication); or iterative reconstruction. Contrast material: ISOUVE 370; Contrast volume: 80 ml; Contrast route: INTRAVENOUS (IV); COMPARISON: CT HEAD/BRAIN WO CON 11/09/2024 12:33 AM FINDINGS: ANTERIOR CIRCULATION: Right internal carotid artery: Intracranial segment is patent with no significant stenosis. No aneurysm. Right middle cerebral artery: Poor opacification right distal MCA image 7/420. Stenosis or occlusion not excluded. Right anterior cerebral artery: No occlusion or significant stenosis. No aneurysm. Left internal carotid artery: Intracranial segment is patent with no significant stenosis. No aneurysm. Left middle cerebral artery: No occlusion or significant stenosis. No aneurysm. Left anterior cerebral artery: No occlusion or significant stenosis. No aneurysm. POSTERIOR CIRCULATION: Right vertebral artery: No occlusion or significant stenosis. No aneurysm. Left vertebral artery: Atretic intracranial left vertebral artery which terminates into the PICA vessel. Basilar artery: No occlusion or significant stenosis. No aneurysm. Right posterior cerebral artery: No occlusion or significant stenosis. No aneurysm. Left posterior cerebral artery: No occlusion or significant stenosis. No aneurysm. Other arteries: Calcific atherosclerosis of the carotid siphons with moderate to severe stenosis bilaterally. Brain: No evidence for intracranial hemorrhage, mass lesions or acute stroke. [id number] small vessel ischemic change periventricular white matter. Benign appearing dystrophic calcification right frontal lobe. This appears stable compared with 04/04/2024. Cerebral ventricles: No ventriculomegaly. Bones/joints: Unremarkable. No acute fracture. Soft tissues: Unremarkable. Other findings: Motion artifact degrades the images. Mild generalized atrophy. IMPRESSION: 1. Motion artifact degrades the images. 2. Poor opacification right distal MCA image 7/420. Stenosis or occlusion not excluded. Repeat CT angiogram may be helpful to further delineate these findings given the severe motion artifact. MRA may also be helpful. 3. Calcific atherosclerosis of the carotid siphons with moderate to severe stenosis bilaterally. 4. 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 5. No evidence for intracranial hemorrhage, mass lesions or acute stroke. 6. Mild generalized atrophy. 7. [id number] small vessel ischemic change periventricular white matter. 8. Benign appearing dystrophic calcification right frontal lobe. This appears stable compared with 04/04/2024.
--- NOTE | 2024-11-08 23:51 | CT_ITS ---
PROCEDURE INFORMATION: Exam: CTA Abdomen and Pelvis With Contrast Exam date and time: 11/09/2024 1:03 AM Age: 73 years old Clinical indication: Injury or trauma; Additional info: Trauma, critical injury suspected TECHNIQUE: Imaging protocol: Computed tomographic angiography of the abdomen and pelvis with contrast. Exam focused on the arteries. 3D rendering (Not supervised by radiologist): MIP and/or 3D reconstructed images were created by the technologist. Radiation optimization: All CT scans at this facility use at least one of these dose optimization techniques: automated exposure control; mA and/or kV adjustment per patient size (includes targeted exams where dose is matched to clinical indication); or iterative reconstruction. Contrast material: ISOUVE 370; Contrast volume: 80 ml; Contrast route: INTRAVENOUS (IV); COMPARISON: CT ANGIO ABDOMEN PELVIS 08/26/2024 5:02 AM FINDINGS: Aorta: No aortic aneurysm. No aortic dissection. Celiac and mesenteric arteries: No occlusion or significant stenosis. Renal arteries: No occlusion or significant stenosis. Right iliac arteries: No occlusion or significant stenosis. Left iliac arteries: No occlusion or significant stenosis. Other arteries: The arteries demonstrate severe atherosclerotic disease. Liver: Hepatic cirrhosis. Gallbladder and biliary ducts: Unremarkable. No calcified stones. No ductal dilation. Pancreas: Mild pancreatic atrophy. Spleen: Unremarkable. No splenomegaly. Adrenal glands: Unremarkable. No mass. Kidneys and ureters: Low attenuation renal lesions measuring up to 2.9 cm in diameter are incompletely characterized, but are likely cysts. No followup imaging is warranted. Stomach and bowel: Moderate sigmoid diverticulosis without diverticulitis. Appendix: No evidence of appendicitis. Intraperitoneal space: Unremarkable. No free air. No significant fluid collection. Lymph nodes: Unremarkable. No enlarged lymph nodes. Urinary bladder: Unremarkable. No mass. Reproductive: Status post hysterectomy. Bones/joints: No acute fracture. Soft tissues: There is a healed anterior abdominal wall incision. Small fat containing anterior abdominal wall hernia. Postsurgical changes of the anterior abdominal wall. Other findings: Please see separate report for CT chest. IMPRESSION: 1. No acute intra-abdominal or intrapelvic organ injury. 2. Hepatic cirrhosis.
--- NOTE | 2024-11-08 23:51 | CT_ITS ---
PROCEDURE INFORMATION: Exam: CT Lumbar Spine Without Contrast Exam date and time: 11/09/2024 12:57 AM Age: 73 years old Clinical indication: Injury or trauma; Additional info: Trauma, critical injury suspected TECHNIQUE: Imaging protocol: Computed tomography of the lumbar spine without contrast. Radiation optimization: All CT scans at this facility use at least one of these dose optimization techniques: automated exposure control; mA and/or kV adjustment per patient size (includes targeted exams where dose is matched to clinical indication); or iterative reconstruction. COMPARISON: CT THORACIC SPINE WO CON 11/09/2024 12:55 AM FINDINGS: Bones/joints: Multilevel degenerative changes of the lumbar spine producing multiple levels of mild spinal canal stenosis. Soft tissues: Unremarkable. Other findings: Please see separate report for abdomen/pelvis. IMPRESSION: No acute fracture or malalignment of the lumbar spine.
--- NOTE | 2024-11-08 23:51 | CT_ITS ---
PROCEDURE INFORMATION: Exam: CT Head Without Contrast Exam date and time: 11/09/2024 12:33 AM Age: 73 years old Clinical indication: Injury or trauma; Additional info: Trauma, critical injury suspected TECHNIQUE: Imaging protocol: Computed tomography of the head without contrast. Total images: 536 Radiation optimization: All CT scans at this facility use at least one of these dose optimization techniques: automated exposure control; mA and/or kV adjustment per patient size (includes targeted exams where dose is matched to clinical indication); or iterative reconstruction. COMPARISON: No relevant prior studies available. FINDINGS: Brain: No acute intracranial hemorrhage, midline shift, or mass. Mild cortical and cerebellar atrophy. Mild to moderate scattered sites of remote white matter small-vessel ischemic change. Benign-appearing dystrophic calcification in the right frontal lobe, axial image 41. Remote deep white matter ischemic changes bilateral basal ganglia. No acute territorial infarct. Basilar cisterns are preserved. Cerebral ventricles: No ventriculomegaly. Paranasal sinuses: Lobulated mucosal thickening base of the left maxillary sinus. No air-fluid levels. Mastoid air cells: Visualized mastoid air cells are well aerated. Orbital cavities: Bilateral orbital lens replacement. Bones: Osteopenia. No skull fracture. Soft tissues: Soft tissue swelling midline posterior scalp with small gas locule implying laceration and edema. No foreign body. No hematoma. Vasculature: Moderate to severe calcifications bilateral intracranial internal carotid arteries. IMPRESSION: 1. No acute intracranial process. 2. Mild soft tissue edema and laceration posterior scalp. 3. No skull fracture. 4. Chronic intracranial findings.
--- NOTE | 2024-11-08 23:51 | CT_ITS ---
PROCEDURE INFORMATION: Exam: CTA Neck With Contrast Exam date and time: 11/09/2024 1:00 AM Age: 73 years old Clinical indication: Injury or trauma; Additional info: Trauma, critical injury suspected TECHNIQUE: Imaging protocol: Computed tomographic angiography of the neck with contrast. Exam focused on the cervical segments of the vasculature. 3D rendering (Not supervised by radiologist): MIP and/or 3D reconstructed images were created by the technologist. Radiation optimization: All CT scans at this facility use at least one of these dose optimization techniques: automated exposure control; mA and/or kV adjustment per patient size (includes targeted exams where dose is matched to clinical indication); or iterative reconstruction. Contrast material: ISOUVE 370; Contrast volume: 80 ml; Contrast route: INTRAVENOUS (IV); COMPARISON: CT CERVICAL SPINE WO CON 11/09/2024 12:52 AM FINDINGS: Right common carotid artery: Mild calcific plaque right carotid bifurcation without hemodynamically significant stenosis. Right internal carotid artery: No stenosis of the extracranial segment. No dissection or occlusion. Right external carotid artery: No occlusion or stenosis of the origin. Left common carotid artery: Severe calcified plaque left carotid bifurcation obscuring view of the carotid image 4/258. This was identified previously on CT angiogram neck 09/10/2023 and again identified 03/27/2024 with similar findings. Left internal carotid artery: No stenosis of the extracranial segment. No dissection or occlusion. Left external carotid artery: No occlusion or stenosis of the origin. Right vertebral artery: Dominant right cervical vertebral artery. Left vertebral artery: Atretic left cervical vertebral artery. Aorta: Calcific atherosclerosis of the aortic arch Pulmonary arteries: Prominent proximal pulmonary arteries. Soft tissues: See Left common carotid artery finding. Bones/joints: Severe glenohumeral joint arthritis on the right image 3/49. Other findings: Great vessel origins are patent. IMPRESSION: 1. Mild calcific plaque right carotid bifurcation without hemodynamically significant stenosis. 2. Severe calcified plaque left carotid bifurcation obscuring view of the carotid image 4/258. This was identified previously on CT angiogram neck 09/10/2023 and again identified 03/27/2024 with similar findings. Critical stenosis is not excluded. Color-flow duplex Ultrasound and/or gadolinium enhanced MRA may be helpful to further delineate these findings. 3. Dominant right cervical vertebral artery. 4. Atretic left cervical vertebral artery. 5. Prominent proximal pulmonary arteries. 6. Calcific atherosclerosis of the aortic arch 7. Great vessel origins are patent. 8. Severe glenohumeral joint arthritis on the right image . REFERENCES: NASCET CRITERIA. The degree of stenosis in the cervical segment of the internal carotid artery is based on NASCET criteria. Normal is no stenosis. Mild is less than 50% stenosis. Moderate is 50-69% stenosis. Severe is 70% to 99% stenosis. Total occlusion is no detectable patent lumen.
--- NOTE | 2024-11-08 23:51 | CT_ITS ---
PROCEDURE INFORMATION: Exam: CT Cervical Spine Without Contrast Exam date and time: 11/09/2024 12:52 AM Age: 73 years old Clinical indication: Injury or trauma; Additional info: Trauma, critical injury suspected TECHNIQUE: Imaging protocol: Computed tomography of the cervical spine without contrast. Radiation optimization: All CT scans at this facility use at least one of these dose optimization techniques: automated exposure control; mA and/or kV adjustment per patient size (includes targeted exams where dose is matched to clinical indication); or iterative reconstruction. COMPARISON: CT HEAD/BRAIN WO CON 11/09/2024 12:33 AM FINDINGS: Bones: Mild kyphosis. No fracture or bone destruction. Diffuse osteopenia. Subtle fractures may be missed. Mild multilevel facet arthropathy. Lungs: Lung apices are normal. Soft tissues: Unremarkable. IMPRESSION: 1. Mild kyphosis. 2. No fracture or bone destruction. 3. Diffuse osteopenia. Subtle fractures may be missed. 4. Mild multilevel facet arthropathy. 5. If the patient has persistent neck pain MRI may be helpful to further delineate these findings.
--- NOTE | 2024-11-08 23:51 | CT_ITS ---
PROCEDURE INFORMATION: Exam: CT Thoracic Spine Without Contrast Exam date and time: 11/09/2024 12:55 AM Age: 73 years old Clinical indication: Injury or trauma; Additional info: Trauma, critical injury suspected TECHNIQUE: Imaging protocol: Computed tomography of the thoracic spine without contrast. Radiation optimization: All CT scans at this facility use at least one of these dose optimization techniques: automated exposure control; mA and/or kV adjustment per patient size (includes targeted exams where dose is matched to clinical indication); or iterative reconstruction. COMPARISON: CT THORACIC SPINE WO CON 08/26/2024 4:55 AM FINDINGS: Bones/joints: No acute fracture. Normal alignment. No significant disc bulge or herniation. No severe spinal canal stenosis. No significant neural foraminal narrowing. Soft tissues: Unremarkable. Other findings: Please see separate report for CT chest. IMPRESSION: No acute fracture or malalignment of the thoracic spine.
--- NOTE | 2024-11-08 23:51 | CT_ITS ---
PROCEDURE INFORMATION: Exam: CTA Chest With Contrast Exam date and time: 11/09/2024 1:03 AM Age: 73 years old Clinical indication: Injury or trauma; Additional info: Trauma, critical injury suspected TECHNIQUE: Imaging protocol: Computed tomographic angiography of the chest with contrast. Exam focused on the arteries. 3D rendering (Not supervised by radiologist): MIP and/or 3D reconstructed images were created by the technologist. Radiation optimization: All CT scans at this facility use at least one of these dose optimization techniques: automated exposure control; mA and/or kV adjustment per patient size (includes targeted exams where dose is matched to clinical indication); or iterative reconstruction. Contrast material: ISOUVE 370; Contrast volume: 80 ml; Contrast route: INTRAVENOUS (IV); COMPARISON: CT ANGIO CHEST 08/26/2024 5:02 AM FINDINGS: Pulmonary arteries: Normal. No pulmonary emboli. Aorta: The aorta demonstrates severe atherosclerotic disease. Lungs: Bilateral apical scarring. Mild scarring and atelectasis in the lower lungs. Multiple nonspecific pulmonary nodules. For follow-up purposes, examples include: Right lung base nodules measuring 5 and 6 mm on image 74 series 5. Pleural spaces: Unremarkable. No pneumothorax. No pleural effusion. Heart: Cardiomegaly. Aortic valve calcifications. Coronary arteries: Coronary artery calcifications. Lymph nodes: Unremarkable. No enlarged lymph nodes. Bones/joints: Old right rib fractures. Small right shoulder effusion. Small free bodies in the right shoulder. Chronic sternal fracture. Anterior right rib fractures of ribs 2 through 5 are age-indeterminate. Soft tissues: Left paraspinal soft tissue edema. Other findings: Please see separate report for abdomen/pelvis. IMPRESSION: 1. No acute intrathoracic organ injury. 2. Anterior right rib fractures of ribs 2 through 5 are age-indeterminate. Please correlate with point tenderness. 3. Right lung base nodules measuring 5 mm and 6 mm on image 74 series 5. For patients at low risk (minimal or absent history of smoking and of other known risk factors), recommend CT Chest at 3-6 months, then consider CT Chest at 18-24 months. For patients at high risk (history of smoking or of other known risk factors), recommend CT Chest at 3-6 months, then CT Chest at 18-24 months. (Reference: Lisandro) REFERENCES: Lisandro Stevenson et al. Guidelines for Management of Incidental Pulmonary Nodules Detected on CT Images: From the Fleischner Society 2017. Radiology. 2017;284(1):228-243.
--- NOTE | 2024-11-08 23:51 | HMH.EDGENADL ---
Discharge Plan Disposition Patient Disposition: Home, Self-Care Prescriptions Prescriptions: No Action bumetanide 2 mg tablet 2 mg PO BID Qty: 60 3RF pregabalin 75 mg capsule 75 mg PO TID (DME) BD AutoShield Duo Pen Needle 30 gauge x 3/16 needle See Rx Instructions .ROUTE .MEDSUPPLY Qty: 100 Rx Instructions: As directed venlafaxine 75 mg capsule,extended release 24hr 75 mg PO DAILY fexofenadine 60 mg tablet 60 mg PO DAILY tramadol 50 mg tablet 50 mg PO DAILY levothyroxine 100 mcg tablet 100 mcg PO DAILY docusate sodium 100 mg capsule 100 mg PO clobetasol 0.05 % shampoo topical ergocalciferol (vitamin D2) 1,250 mcg (50,000 unit) capsule 1,250 mcg PO DIRECTED Patient Comments: TAKE 1 CAPSULE BY MOUTH EVERY TWO WEEKS (TWICE A MONTH) Rx Instructions: EVERY OTHER WEEK (DME) AutoShield Duo Pen Needle 30 gauge x 3/16 needle See Rx Instructions .ROUTE .MEDSUPPLY Qty: 100 Rx Instructions: As directed Mounjaro 12.5 mg/0.5 mL pen injector SQ albuterol sulfate 90 mcg/actuation HFA aerosol inhaler 2 puff INHALATION Q4HP PRN (Reason: Shortness Of Breath Or Wheezing) multivitamin Tablet 1 tab PO DAILY omeprazole 40 mg Capsule,Delayed Release(Dr/Ec) 40 mg PO HS icosapent ethyl [Vascepa] 1 gram Capsule 1 g PO BID docusate sodium 100 mg Tablet 100 mg PO BID ferrous sulfate 324 mg (65 mg iron) Tablet,Delayed Release (Dr/Ec) 324 mg PO DAILY Eliquis 5 mg Tablet 5 mg PO BID nitroglycerin 0.4 mg Tablet, Sublingual 0.4 mg SUBLINGUAL Q5MINP PRN (Reason: Chest Pain) Rx Instructions: do not exceed 3 doses per episode insulin lispro 100 unit/mL Insulin Pen 0 sliding scale dose SQ ACHS Rx Instructions: 101-150 3 UNITS 151-200 4 UNITS 201-250 6 UNITS 251-300 9 UNITS 301-350 12 UNITS 351-400 15 UNITS albuterol sulfate 2.5 mg /3 mL (0.083 %) Solution For Nebulization 2.5 mg inhalation Q4HP PRN (Reason: shortness of air or wheezing) acetaminophen 500 mg Tablet 500 mg PO AC paroxetine HCl [Paxil] 40 mg Tablet 40 mg PO HS spironolactone 50 mg tablet 50 mg PO DAILY rosuvastatin 10 mg tablet 10 mg PO HS Trelegy Ellipta 100-62.5-25 mcg blister with device 1 inh INHALATION DAILY polyethylene glycol 3350 17 gram/dose powder 17 g PO DAILY clopidogrel 75 mg Tablet 75 mg PO DAILY ondansetron 4 mg Tablet,Disintegrating 4 mg PO Q8HP PRN (Reason: Nausea And Vomiting) insulin glargine [Lantus Solostar U-100 Insulin] 100 unit/mL (3 mL) Insulin Pen 14 unit SQ HS Referrals Follow up/Referrals: Grant Julio, [Staff Physician, Orthopedics] - See instructions Provider,Referral, MD [Primary Care Provider, Medical] - See instructions Activity Restrictions/Add. Instructions Additional Instructions/Restrictions: Please follow-up with Dr. Julio for further evaluation of your fibular fracture. Recommend following up with your PCP/cardiology for further evaluation of your carotid artery stenosis. Please keep splint clean dry and in place. No weightbearing in the right lower extremity. Clinical Impressions Clinical Impression: Hematoma of occipital region of scalp Closed fracture of neck of right fibula Qualifiers: Encounter type: initial encounter Qualified Code(s): S82.831A - Other fracture of upper and lower end of right fibula, initial encounter for closed fracture Carotid artery stenosis Qualifiers: Laterality: left Qualified Code(s): I65.22 - Occlusion and stenosis of left carotid artery Print Language Print Language: Korean Discharge ED Provider: Alvarez Gibbs General Adult HPI General Chief complaint: Trauma Alert Stated complaint: Fall Time Seen by Provider: 11/08/24 23:51 History of Present Illness HPI narrative: 73-year-old female with history of heart failure, peripheral artery disease, hypertension hyperlipidemia, A-fib on Eliquis presents for fall. She was up at her nursing facility when she slipped on a wet floor, falling back and striking her head on the door handle. She reports pain in her head, her back and her left calf. She feels like it has been pulled. She denies loss of consciousness. Abrasion on the back of her head per EMS. Related Data Home Medications ?Medication ?Instructions ?Recorded ?Confirmed ergocalciferol (vitamin D2) 1,250 1,250 mcg PO DIRECTED 08/12/20 11/06/24 mcg (50,000 unit) capsule albuterol sulfate 90 mcg/actuation 2 puff inhalation Q4HP PRN 12/18/22 11/06/24 aerosol inhaler Shortness Of Breath Or Wheezing apixaban 5 mg tablet (Eliquis) 5 mg PO BID 12/18/22 11/06/24 docusate sodium 100 mg tablet 100 mg PO BID 12/18/22 11/06/24 ferrous sulfate 324 mg (65 mg 324 mg PO DAILY 12/18/22 11/06/24 iron) tablet,delayed release icosapent ethyl 1 gram capsule 1 g PO BID 12/18/22 11/06/24 (Vascepa) insulin lispro 100 unit/mL 0 sliding scale dose SQ ACHS 12/18/22 11/06/24 subcutaneous pen Diabetes multivitamin 1 tab PO DAILY 12/18/22 11/06/24 nitroglycerin 0.4 mg sublingual 0.4 mg sublingual Q5MINP PRN Chest 12/18/22 11/06/24 tablet Pain omeprazole 40 mg capsule,delayed 40 mg PO HS 12/18/22 11/06/24 release acetaminophen 500 mg tablet 500 mg PO AC 12/19/22 11/06/24 albuterol sulfate 2.5 mg/3 mL 2.5 mg inhalation Q4HP PRN 12/19/22 11/06/24 (0.083 %) solution for nebulization shortness of air or wheezing clopidogrel 75 mg tablet 75 mg PO DAILY 03/18/23 11/06/24 insulin glargine 100 unit/mL (3 14 unit SQ HS Diabetes 04/19/23 11/06/24 mL) subcutaneous pen (Lantus Solostar U-100 Insulin) ondansetron 4 mg disintegrating 4 mg PO Q8HP PRN Nausea And 04/19/23 11/06/24 tablet Vomiting fluticasone fur. 100 mcg-umeclid 1 inh inhalation DAILY 08/13/23 11/06/24 62.5 mcg-vilant 25 mcg inhalat.powder (Trelegy Ellipta) paroxetine HCl 40 mg tablet (Paxil) 40 mg PO HS 08/13/23 11/06/24 rosuvastatin 10 mg tablet 10 mg PO HS 08/13/23 11/06/24 spironolactone 50 mg tablet 50 mg PO DAILY 08/13/23 11/06/24 polyethylene glycol 3350 17 17 g PO DAILY 08/14/23 11/06/24 gram/dose oral powder pen needle,diabetic dual safty 30 #100 ea 09/17/23 11/06/24 gauge x 3/16 (BD AutoShield Duo Pen Needle) pregabalin 75 mg capsule 75 mg PO TID 09/17/23 11/06/24 clobetasol 0.05 % shampoo topical 09/12/24 11/06/24 docusate sodium 100 mg capsule 100 mg PO 09/12/24 11/06/24 fexofenadine 60 mg tablet 60 mg PO DAILY 09/12/24 11/06/24 levothyroxine 100 mcg tablet 100 mcg PO DAILY 09/12/24 11/06/24 tramadol 50 mg tablet 50 mg PO DAILY 09/12/24 11/06/24 venlafaxine 75 mg capsule,extended 75 mg PO DAILY 09/12/24 11/06/24 release 24 hr pen needle, diabetic, safety 30 #100 ea 10/16/24 11/06/24 gauge x 3/16 (AutoShield Duo Pen Needle) tirzepatide 12.5 mg/0.5 mL mg SQ 10/16/24 11/06/24 subcutaneous pen injector (Heather) Previous Rx's ?Medication ?Instructions ?Recorded bumetanide 2 mg tablet 2 mg PO BID #60 tabs 04/30/23 Allergies Allergy/AdvReac Type Severity Reaction Status Date / Time cephalexin Allergy Hives Verified 11/06/24 10:59 Penicillins Allergy Hives Verified 11/06/24 10:59 [facility] Disclaimer: The information contained in this section may have been updated after the patient was seen, as this information can be updated by other users. Medical History Non-healing wound of left lower extremity Moderate aortic stenosis Moderate tricuspid regurgitation (HFpEF) heart failure with preserved ejection fraction PAD (peripheral artery disease) Swelling of both lower extremities Coronary artery disease Cellulitis of left lower leg Itchy skin Nausea and vomiting in adult patient Acute on chronic respiratory failure with hypoxemia Accidental overdose Chronic respiratory failure with hypoxia and hypercapnia Lung nodule Rotator cuff arthropathy of right shoulder Acute anterior epistaxis Chronic hypoxemic respiratory failure O2 dependent Nodule of left lung Heart attack Encounter for screening for malignant neoplasm of lung COPD mixed type History of smoking 30 or more pack years Dyspnea Bilateral hearing loss due to cerumen impaction Encounter for removal of nasal packing CAD in alutiiq artery Cardiomyopathy Non-STEMI (non-ST elevated myocardial infarction) Right ventricular dilation Coronary artery disease HFrEF (heart failure with reduced ejection fraction) Pneumonia Diabetes mellitus, type 2 Iron deficiency anemia Pulmonary hypertension Osteoporosis Major depressive disorder Heart failure Depression Lymphedema Insomnia Class 2 obesity due to excess calories with body mass index (BMI) of 39.0 to 39.9 in adult Fibromyalgia Congestive heart failure Atrial fibrillation Anxiety HTN (hypertension) HLD (hyperlipidemia) COPD (chronic obstructive pulmonary disease) BMI 30.0-30.9,adult Osteoarthritis Callus of foot Paresthesia of both lower extremities Onychodystrophy Onychomycosis Diabetic foot Surgical History History of coronary artery stent placement History of bladder surgery H/O: hysterectomy H/O hernia repair Family History Other Diabetes Hyperlipidemia Hypertension No significant family history Social History Smoking Status: Unknown if ever smoked alcohol intake: never substance use type: denies use current occupational status: retired and disabled Travel in the last 8 weeks?: None housing: care home lives independently: No care home: Yes caffeine: Yes Other Medical History Have you received the Flu Vaccine for this season: No Have you received the Pneumonia Vaccine: Yes ROS Obtained: Yes All systems reviewed & no additional complaints except as documented Physical Exam General General appearance: alert and in no apparent distress Head Head exam: normocephalic and other (Hematoma and small abrasion on the posterior scalp.) Eye Eye exam: Present normal appearance, PERRL and EOMI ENT ENT exam: Present normal oropharynx and normal external ear exam Neck Neck exam: Present normal inspection and full ROM Chest Chest inspection: Present normal inspection and symmetric chest wall rise; Absent tenderness Respiratory Respiratory exam: Present normal lung sounds bilaterally; Absent respiratory distress Cardiovascular Cardiovascular exam: Present normal rhythm and irregular rhythm Abdominal Exam Abdominal exam: Present soft; Absent distention, tenderness or guarding Extremities Exam Extremities exam: Present normal inspection; Absent edema or joint swelling Back Exam Back exam: Present normal inspection; Absent tenderness Neurological Exam Neurological exam: Present alert and oriented X3; Absent motor sensory deficit Psychiatric Psychiatric exam: Present normal affect and normal mood Skin Skin exam: Present warm, dry and normal color Lymphatic Lymphatic Findings: no adenopathy Medical Decision Making Medical Records Medical records reviewed: Yes I reviewed the patient's medical records. Screening: Per USPSTF and CDC recommendations, given the prevalence of disease in our region, it is our hospital?s policy to screen for HIV and viral Hepatitis for all patients aged 18 and over and those with ongoing risk factors. Tj Inquiry Pt receiving controlled substance: No Tj was queried for this patient: No Vital Signs: 11/08/24 23:54 11/09/24 00:02 11/09/24 00:46 Temperature 98.7 F 98.7 F Temperature Source Oral Oral Pulse Rate 85 Pulse Rate [Apical] 85 85 Respiratory Rate 18 12 18 Blood Pressure 160/81 H Blood Pressure [Left Arm] 152/82 H 152/82 H Blood Pressure Mean 84 Blood Pressure Mean [Left Arm] 105 105 Blood Pressure Source [Left Arm] Automatic Cuff Automatic Cuff Blood Pressure Position [Left Arm] Sitting Sitting 02 Sat by Pulse Oximetry 94 L 96 94 L Oxygen Delivery Method Nasal Cannula Nasal Cannula Oxygen Flow Rate (LPM) 3 3 11/09/24 01:20 11/09/24 01:30 11/09/24 02:01 Temperature Temperature Source Pulse Rate 45 L 84 Pulse Rate [Apical] Respiratory Rate 20 16 15 Blood Pressure 139/73 117/92 H 135/116 H Blood Pressure [Left Arm] Blood Pressure Mean 95 96 121 Blood Pressure Mean [Left Arm] Blood Pressure Source [Left Arm] Blood Pressure Position [Left Arm] 02 Sat by Pulse Oximetry 67 L 100 Oxygen Delivery Method Oxygen Flow Rate (LPM) Lab Data Lab results reviewed: Yes I reviewed the patient's lab results. Lab Results 11/09/24 00:40: WBC 16.2 H, RBC 4.92, Hgb 12.2, Hct 39.7, MCV 80.7 L, MCH 24.8 L, MCHC 30.7 L, RDW 17.8 H, Plt Count 476 H, MPV 10.9 H, Neut % (Auto) 80.6 H, Lymph % (Auto) 8.8 L, [place] % (Auto) 7.8, Eos % (Auto) 1.3, Baso % (Auto) 0.6, Neut # (Auto) 13.1 H, Lymph # (Auto) 1.4, [place] # (Auto) 1.3 H, Eos # (Auto) 0.2, Baso # (Auto) 0.1, PT 11.1, INR 1.00, APTT 27.7, Sodium 135 L, Potassium 4.5, Chloride 87 L, Carbon Dioxide 39 H, Anion Gap 13.5, BUN 21 H, Creatinine 1.00, Estimated Creat Clear 75, Estimated GFR 54 L, Est GFR ( Amer) 66, Glucose 161 H, Calcium 9.7, Total Bilirubin 0.4, AST 26, ALT 16, Alkaline Phosphatase 157 H, Total Protein 7.7, Albumin 4.2, Globulin 3.5 H, Albumin/Globulin Ratio 1.2 11/09/24 00:40 11/09/24 00:40 Orders (Tests/Meds): ED MEDICATIONS Generic Name Dose Route Start Last Admin Trade Name Freq PRN Reason Stop Dose Admin Sodium Chloride 10 ml 11/09/24 01:04 11/09/24 01:05 Sodium Chloride 0.9% 10ml Syr (Rad Only) IV 12/09/24 01:03 10 ml NEEDED PRN Administration Maintain IV Site Discontinued Medications Generic Name Dose Route Start Last Admin Trade Name Freq PRN Reason Stop Dose Admin Acetaminophen 1,000 mg 11/08/24 23:52 11/09/24 00:05 Acetaminophen 500mg Tab PO 11/08/24 23:53 1,000 mg ONCE ONE Administration Iopamidol 160 ml 11/09/24 01:04 11/09/24 01:05 Iopamidol-370 (76%);100ml Bottle IV 11/09/24 01:05 160 ml ONCE ONE Administration Ondansetron HCl 4 mg 11/09/24 01:13 11/09/24 01:23 Ondansetron 4mg/2ml Vial IV 11/09/24 01:14 Not Given ONCE ONE Sodium Chloride 80 ml 11/09/24 01:04 11/09/24 01:05 0.9 % Sodium Chloride 50 Ml Vial IV 11/09/24 01:05 80 ml ONCE ONE Administration ORDERS Category Date Time Status CT angio abd/pel - TRAUMA Stat Cat Scan 11/08/24 23:[address] angio chest - dissection Stat Cat Scan 11/08/24 23:[address] angio head Stat Cat Scan 11/08/24 23:[address] angio neck Stat Cat Scan 11/08/24 23:[address] cervical spine wo con Stat Cat Scan 11/08/24 23:[address] head/brain wo con Stat Cat Scan 11/08/24 23:[address] lumbar spine wo con Stat Cat Scan 11/08/24 23:[address] thoracic spine wo con Stat Cat Scan 11/08/24 23:51 Completed Ankle XR -Right minimum 3 Views [XR ankle RT min 3V] Exams 11/09/24 01:42 Completed Stat Tibia/fibula XR right 2 views [XR tibia fibula RT 2V] Exams 11/08/24 23:56 Completed Stat CBC w/Auto Diff [Complete Blood Count Auto Diff] Stat Lab 11/08/24 23:52 Completed CMP [Comprehensive Metabolic Panel] Stat Lab 11/08/24 23:52 Completed INR [Prothrombin Time INR] Stat Lab 11/08/24 23:52 Completed PTT [Activated Partial Thrombo Time] Stat Lab 11/08/24 23:52 Completed Medical Decision Narrative: 73-year-old female dents with with fall blood thinners with head injury.. History was obtained via interactive discussion with patient. On arrival, patient is [afebrile, hemodynamically stable, satting appropriately, alert, oriented x4, GCS 15], moving all extremities spontaneously. Full physical exam performed and significant for mild tenderness to the scalp with small hematoma, right tib-fib pain. Clear lungs bilaterally. Patient is a trauma alert. Patient was taken emergently for CT trauma scans. Basic labs ordered. Patient was given Tylenol and Zofran for symptomatic management and correction of underlying abnormalities. Workup initiated including trauma labs, trauma scans radiographs of the right tib-fib and ankle. On re-evaluation, patient [remains afebrile, HD stable.] Laboratory workup independently interpreted by me and significant for mild leukocytosis, no anemia, stable renal function Imaging independently interpreted by me and significant for no intracranial bleeding, chronic rib fractures noted, patient is not tender over this area. Patient has chronic carotid artery stenosis. Acute fracture of the right fibula is noted.. See radiology read for full review of final results. Given patient history, exam and workup, patient's presentation most likely represents fall with acute right fibular fracture. Patient also has chronic carotid stenosis that was noted that requires further evaluation on an outpatient basis. Patient was placed in a splint and was discharged in stable condition with instructions to call to follow-up with Dr. Julio. Procedures Risk/Benefits of Procedure(s) Were Explained: Yes Critical Care Critical Care Time Critical Care Time: Yes Attestation: On 11/08/24, the high probability of a clinically significant, sudden or life threatening deterioration of the following system(s) required my full and direct attention, intervention and personal management. The time I documented below is in addition to time spent performing reported procedures but includes the following listed in this critical care notation. Total Time Total Critical Care Time: 35
--- NOTE | 2024-11-08 23:53 | PC.NURSE ---
pts bs was 161 at time of being brought in,.
[2024-11-08 23:54] VITALS: BP 152/82; PULSE 85; RESP 18; TEMP 37.1; O2SAT 94; BMI 36.3
--- OUTSIDE RECORDS SUMMARY | 2024-11-08 23:54 | XMS_ITS | Clinical Summary ---
Author Organization [facility] Address [address] [place] [address] Phone Care Team Providers Care Contact Assembler Name Role Phone Delfino Valdez MD [ ] Conditions or Problems Problem Name Problem Code Onset Date Status Entry Date Provider Comment Standard Description Annotate Chronic venous stasis disease 21386496 (SNOMED CT) Active 04/27 Adri Prabhakar Stasis dermatitis DM II with diabetic PVD 964022301 (SNOMED CT) Active 04/27 Adri Prabhakar Peripheral [...] II with peripheral vascular disorder, with gangrene 591848408 (SNOMED CT) Active 03/13 Sharyn W Peripheral circulatory disorder due to type 2 diabetes mellitus Skin tissue necrosis 73637147 (SNOMED CT) Inactive 03/13 Sharyn W Skin necrosis Abrasion, left lower leg, subsequent encounter S80.812D (ICD-10-CM) Inactive 03/13 Sharyn W Abrasion, left lower leg, subsequent encounter Cellulitis, leg, right 803324129 (SNOMED CT) Active 03/13 Adri Prabhakar Cellulitis of lower limb Skin tissue necrosis 03599679 (SNOMED CT) Removed 03/13 Adri Prabhakar Skin necrosis Cellulitis, leg, left 852668645 (SNOMED CT) Active 03/13 Adri Prabhakar Cellulitis of lower limb Abrasion, left lower leg, subsequent encounter S80.812D (ICD-10-CM) Removed 03/13 Adri Prabhakar Abrasion, left lower leg, subsequent encounter DM II with diabetic PVD 103327130 (SNOMED CT) Inactive 03/13 Adri Prabhakar Peripheral vascular disease DM, type II, poorly controlled E11.65 (ICD-10-CM) Active 03/13 Adri Prabhakar Type 2 diabetes mellitus with hyperglycemia Hx of falling 228018237 (SNOMED CT) Active 03/13 Adri Prabhakar History of fall Other obesity due to excess calories 759780910 (SNOMED CT) Active 03/13 Jenn Back Simple obesity Medications Medication Instructions Start Date Stop Date Generic Name NDC Provider DOXYCYCLINE HYCLATE 100 MG TABS Take one pill twice daily. DOXYCYCLINE HYCLATE 72665495282 Delfino Valdez MD DOXYCYCLINE MONOHYDRATE 100 MG TABS Take one pill twice daily. DOXYCYCLINE MONOHYDRATE 79777259170 Delfino Valdez MD DIAZEPAM GEL twice a day in the morning and before bed DIAZEPAM GEL 15533703357 Katie Elkins CELEXA 40 MG TABS Take 1 tablet by mouth daily at bedtime CITALOPRAM HYDROBROMIDE 17353935032 Katie Elkins HYDROCODONE-ACETAM INOPHEN 5-325 MG TABS prn HYDROCODONE-ACETA MINOPHEN 64147939636 Katie Elkins HYDROXYZINE HCL 50 MG TABS Take one (1) tablet by mouth three times a day HYDROXYZINE HCL 50014025281 Katie Elkins TIZANIDINE HCL 4 MG CAPS Take one (1) tablet by mouth twice a day prn TIZANIDINE HCL 02035070379 Katie Elkins FUROSEMIDE 40 MG TABS Take one (1) tablet by mouth three times a day FUROSEMIDE 60857407273 Katie Elkins ATORVASTATIN CALCIUM 80 MG TABS Take 1 tablet by mouth daily at bedtime ATORVASTATIN CALCIUM 35878151295 Katie Elkins HM MAGNESIUM 400 MG ORAL TABLET Take 1 tablet by mouth daily MAGNESIUM OXIDE 35034298695 Katie Elkins INVOKANA 100 MG TABS Take 1 tablet by mouth daily in the morning CANAGLIFLOZIN 20933553107 Katie Elkins METFORMIN HCL 1000 MG TABS Take one (1) tablet by mouth twice a day METFORMIN HCL 88470467721 Katie Elkins AMBIZINE 25 MG ORAL TABLET prn MECLIZINE HCL 05317380759 Katie K DICYCLOMINE HCL 10 MG CAPS prn DICYCLOMINE HCL 77064394525 Katie Elkins LISINOPRIL 10 MG TABS Take 1 tablet by mouth daily LISINOPRIL 75374159468 Katie K ASPIRIN 325 MG TABS ASPIRIN 36194564750 Katie K LANTUS SOLOSTAR 100 UNIT/ML SOPN 50 units at bedtime INSULIN GLARGINE 26624740142 Katie K VENTOLIN HFA 108 (90 Base) MCG/ACT AERS 2 puffs prn ALBUTEROL SULFATE 13639577230 Katie K SYMBICORT 160-4.5 MCG/ACT AERO 2 puffs twice daily prn BUDESONIDE-FORMOT SKYE FUMARATE 00285516846 Katie K AMITRIPTYLINE HCL 25 MG TABS Take 1 tablet by mouth daily at bedtime AMITRIPTYLINE HCL 35388360966 Katie Severo *NEEDS MED LIST UPDATE -SEE LIST* 04/03 *NEEDS MED LIST UPDATE -SEE LIST* Katie Elkins DAKINS SOLUTION DAKINS SOLN [id number] Andrew Elias *NEEDS MED LIST UPDATE -SEE LIST* 04/03 *NEEDS MED LIST UPDATE -SEE LIST* Andrew Elias DOXYCYCLINE HYCLATE 100 MG CAPS take 1 cap po BID DOXYCYCLINE HYCLATE 19860486485 Delfino Valdez MD ACETAMINOPHEN 325 MG TABS Take 2 tabs by mouth daily as needed 03/14 ACETAMINOPHEN 14865370487 Delfino Valdez MD BACTRIM DS 800-160 MG TABS Take one (1) tablet by mouth twice a day 03/14 SULFAMETHOXAZOLE- TRIMETHOPRIM 13221532726 Delfino Valdez MD ATORVASTATIN CALCIUM 20 MG TABS 1 tab by mouth qhs 03/14 ATORVASTATIN CALCIUM 51497144193 Delfino Valdez MD BUMETANIDE 1 MG TABS Take 2 tabs by mouth every 12 hours 03/14 BUMETANIDE 08544740876 Delfino Valdez MD DAKINS (1/4 STRENGTH) 0.125 % SOLN 1 application twice daily 03/14 DAKINS 85022384638 Delfino Valdez MD NOVOLOG 100 UNIT/ML SUBCUTANEOUS SOLUTION Inject subQ with meals 03/14 INSULIN ASPART 07022635421 Delfino Valdez MD KLOR-CON 10 10 MEQ CR-TABS Take 4 tabs by mouth daily 03/14 POTASSIUM CHLORIDE 02513838217 Delfino Valdez MD VITAMIN D2 50 MCG (1999 UT) TABS 50,000 one cap a month ERGOCALCIFEROL 80987286521 Jenn Back KLOR-CON 10 10 MEQ CR-TABS Take 4 tabs by mouth daily 0/02 POTASSIUM CHLORIDE 52186143344 Jenn Back OXYCODONE HCL 5 MG TABS Take 2 tabs every 6 hours as needed OXYCODONE HCL 20847260504 Jenn Back OMEPRAZOLE 40 MG CPDR Take 1 tablet by mouth daily OMEPRAZOLE 06186655807 Jenn Back METHOCARBAMOL 500 MG TABS Take 0.5 tab by mouth every 6 hours METHOCARBAMOL 94086439757 Jenn Back MELATONIN 3 MG TABS Take 2 tabs by mouth qhs MELATONIN 85519448604 Jenn Back LIDOCAINE HCL 2 % EXTERNAL GEL Apply topically as needed LIDOCAINE HCL 46310920197 Jenn Back LEVOCETIRIZINE DIHYDROCHLORIDE 5 MG TABS Take 1 tab by mouth at night LEVOCETIRIZINE DIHYDROCHLORIDE 05258608587 Jenn Back NOVOLOG 100 UNIT/ML SUBCUTANEOUS SOLUTION Inject subQ with meals 05/06 INSULIN ASPART 59694763537 Jenn Back GABAPENTIN 300 MG CAPS Take one (1) tablet by mouth three times a day GABAPENTIN 42264515781 Jenn Back FOLIC ACID 1 MG TABS Take 1 tablet by mouth daily FOLIC ACID 74730451846 Jenn Bakc BREO ELLIPTA 100-25 MCG/ACT AEPB Inhale 1 puff daily FLUTICASONE FUROATE-VILANTERO L 56393342545 Jenn Back DULCOLAX STOOL SOFTENER 100 MG CAPS 1 supp as needed DOCUSATE SODIUM 61945935231 Jenn Back DAKINS (1/4 STRENGTH) 0.125 % SOLN 1 application twice daily 05/06 DAKINS 25800822629 Jenn Back CELEXA 20 MG TABS Take 2 tabs by mouth daily CITALOPRAM HYDROBROMIDE 28633401268 Jenn Back BUMETANIDE 1 MG TABS Take 2 tabs by mouth every 12 hours 08/05 BUMETANIDE 79362066967 Jenn Back BACTRIM DS 800-160 MG TABS Take one (1) tablet by mouth twice a day 4 SULFAMETHOXAZOLE- TRIMETHOPRIM 10359572053 Jenn Back ATORVASTATIN CALCIUM 20 MG TABS 1 tab by mouth qhs 207 ATORVASTATIN CALCIUM 83958220159 Jenn Back ADULT ASPIRIN EC LOW STRENGTH 81 MG ORAL TABLET DELAYED RELEASE Take 1 tablet by mouth daily ASPIRIN 33572629656 Jenn Back AMITRIPTYLINE HCL 25 MG TABS Take by mouth every hour 04/03 AMITRIPTYLINE HCL 07635168610 Jenn Back ALBUTEROL SULFATE (2.5 MG/3ML) 0.083% NEBU Inhale 3mL every 6 hours as needed ALBUTEROL SULFATE 10771624482 Jenn Back ACETAMINOPHEN 325 MG TABS Take 2 tabs by mouth daily as needed 03/14 ACETAMINOPHEN 79432366339 Jenn Back Medications Administered No information available. 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
--- OUTSIDE RECORDS SUMMARY | 2024-11-08 23:55 | XMS_ITS | Clinical Summary ---
Author Organization Healthcare Address [address] [place] [address] Care Team Providers Care Tool And Die Designer Name Role Phone Tone Ward MD Primary Care Provider [phone] Allergies Active Allergy Reactions Criticality Noted Date [...] 5 Active ergocalciferol (Vitamin D-2) 1.25 MG (07117 UT) capsule Take 1 capsule by mouth [...] any time in the past [address] [facility], were you homeless or living in a senior care (including now)? No 05/26/2024 Utilities Answer Date Recorded In the past 12 months has th e electric, gas, oil, or water [employer] threatened to shut off services in your [...] A1C 10/29/2022, 10/25/2021, 08/23/2017, Additional history exists [id number] Vaccine (6 - Moderna risk ) 10/06/2024 [...] Antibody Negative Negative 05/23/2024 3:32 AM EDT [facility] Blood Venous blood specimen / Unknown Venipuncture / Unknown 05/23/2024 2:42 AM EDT 05/23/2024 2:51 AM EDT us Cruz [place] MD LAB BLOOD ORDERABLES Final Re sult [facility] [address] [place] [address] * (ABNORMAL) Hemoglobin A1c (08/13/2015 3:32 AM [...] 3:32 AM EDT 08/13/2015 3:[address] 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
--- NOTE | 2024-11-08 23:56 | XR_ITS ---
PROCEDURE INFORMATION: Exam: XR Right Tibia and Fibula Exam date and time: 11/09/2024 1:08 AM Age: 73 years old Clinical indication: Injury or trauma; Fall; Blunt trauma; Lower leg; Right; Additional info: Pain TECHNIQUE: Imaging protocol: Radiologic exam of the right tibia and fibula. Views: 2 views. COMPARISON: CR XR TIBIA FIBULA RT 2V 03/27/2024 8:31 AM FINDINGS: Bones/joints: Fracture right upper fibula. Diffuse osteopenia. Soft tissues: Normal. IMPRESSION: 1. Fracture right upper fibula. 2. Diffuse osteopenia.
[2024-11-09] VITALS (9 sets, daily range): BP systolic 117–160; BP diastolic 73–116; PULSE 45–85; RESP 12–20; TEMP 37.1; O2SAT 67–100
[2024-11-09] MEDS: ACETAMINOPHEN 500MG TAB 1000 MG PO (00:05)
--- OUTSIDE RECORDS SUMMARY | 2024-11-09 00:54 | XMS_ITS | CCD ---
Author Organization Unknown Care Team Providers Care Card Writer Hand Name Role Phone Unavailable Primary Care Provider Unavailabl e Unavailable Chronic Care Management Unavaila ble Summary Purpose DataExchange Insurance Providers Payer name Policy type / Coverage type Covered libertarian ID Effective Begin Date Effective End Date [facility] [id number] Unknown Unknown Family History Family History data not found Medication Administered No Medication Administered data Reason For Visit No Reason For Visit data Medical Equipment No Medical Equipment data Advance Directives No Advance Directive data
--- OUTSIDE RECORDS SUMMARY | 2024-11-09 00:54 | XMS_ITS | CCD ---
Author Organization Unknown Care Team Providers Care Dough Puncher Name Role Phone Unavailable Primary Care Provider Unavailabl e Unavailable Chronic Care Management Unavaila ble Summary Purpose DataExchange Insurance Providers Payer name Policy type / Coverage type Covered green party ID Effective Begin Date Effective End Date [facility] [id number] Unknown Unknown Family History Family History data not found Medication Administered No Medication Administered data Reason For Visit No Reason For Visit data Medical Equipment No Medical Equipment data Advance Directives No Advance Directive data
[2024-11-09] MEDS: SODIUM CHLORIDE 0.9% 10ML SYR (RAD ONLY) 10 ML IV (01:05)
[2024-11-09] MEDS: 0.9 % SODIUM CHLORIDE 50 ML VIAL 80 ML IV (01:05)
[2024-11-09] MEDS: IOPAMIDOL-370 (76%);100ML BOTTLE 160 ML IV (01:05)
[2024-11-09 01:14] LABS: Hematocrit 39.7 % (37.0-47.0); Hemoglobin 12.2 g/dL (12.2-16.2); Immature Granulocytes % 0.9 %; Mean Corpuscular HGB Conc 30.7 g/dL (31.8-35.4); Mean Corpuscular Hemoglobin 24.8 pg (27.0-31.2); Mean Corpuscular Volume 80.7 fl (81-99); Nucleated Red Blood Cells % 0 %; Platelet Count 476 K/mm3 (142-424); Red Blood Count 4.92 M/mm3 (4.20-5.40); Red Cell Distribution Width-SD 52.0 fL; White Blood Count 16.2 K/mm3 (4.8-10.8)
[2024-11-09 01:20] LABS: Alanine Aminotransferase 16 U/L (12-78); Albumin Level 4.2 g/dl (3.5-5.0); Albumin/Globulin Ratio 1.2 (1.1-1.8); Alkaline Phosphatase 157 U/L (38-126); Anion Gap 13.5 mEq/L (5-15); Aspartate Amino Transferase 26 U/L (14-36); Bilirubin,Total 0.4 mg/dl (0.2-1.3); Blood Urea Nitrogen 21 mg/dl (7-17); Calcium 9.7 mg/dl (8.4-10.2); Carbon Dioxide 39 mmol/L (22.0-30.0); Chloride 87 mmol/L (98-107); Creatinine Clearance Estimated 75 mL/min (50-200); Creatinine,Serum 1.00 mg/dl (0.52-1.04); Estimated Glomerular Filt Rate 54 ml/min (>60); GFR (African American) 66 ML/MIN (>60); Globulin 3.5 g/dL (1.3-3.2); Glucose 161 mg/dl (74-100); Potassium 4.5 mmoL/L (3.5-5.1); Sodium 135 mmol/L (136-145); Total Protein,Serum 7.7 g/dl (6.3-8.2)
--- NOTE | 2024-11-09 01:42 | XR_ITS ---
PROCEDURE INFORMATION: Exam: XR Right Ankle Exam date and time: 11/09/2024 2:04 AM Age: 73 years old Clinical indication: Pain; Ankle; Right; Additional info: Ankle pain TECHNIQUE: Imaging protocol: Radiologic exam of the right ankle. Views: 3 or more views. Total images: 3 COMPARISON: CR XR TIBIA FIBULA RT 2V 11/09/2024 1:08 AM FINDINGS: Bones/joints: Osteopenia. No acute fracture, joint dislocation, or joint effusion. The ankle mortise is maintained. No significant degenerative arthropathy. Small plantar calcaneal enthesophyte. Partially visualized moderate degenerative changes at the tarsal articulations. Soft tissues: Considerable soft tissue swelling and edema throughout the visualized right lower extremity. Benign soft tissue calcifications. IMPRESSION: 1. No acute osseous abnormality. 2. Considerable soft tissue swelling and edema.
[2024-11-09 01:58] LABS: Activated Partial Thrombo Time 27.7 seconds (22.8-30.6); INR 1.00 (0.9-1.1); Prothrombin Time 11.1 seconds (10.1-12.5)
--- NOTE | 2024-11-09 10:13 | PC.NURSE ---
Got in patients chart Per Charge nurse Nilam to print the discharge packet [facility].
== END 2024-11-09 04:06 | disposition home or self-care (01) ==
PROVIDERS: Emergency Provider Emergency Medicine
DX: S09.90XA Unspecified injury of head, initial encounter (principal); S00.03XA Contusion of scalp, initial encounter; S82.831A Other fracture of upper and lower end of right fibula, initial encounter for closed fracture; I65.22 Occlusion and stenosis of left carotid artery; I48.91 Unspecified atrial fibrillation; I10 Essential (primary) hypertension; E78.5 Hyperlipidemia, unspecified; Z79.01 Long term (current) use of anticoagulants; W01.198A Fall on same level from slipping, tripping and stumbling with subsequent striking against other object, initial encounter
CPT/HCPCS: 29515; 70450; 70496; 70498; 71275; 72125; 72128; 72131; 73590; 73610; 74174; 80053; 85025; 85610; 85730; 99285; Q9967

== ENCOUNTER 2024-11-14 07:54 | Outpatient (CLI) | payer MEDICARE, MEDICAID, SELFPAY ==
--- OUTSIDE RECORDS SUMMARY | 2024-11-14 07:56 | XMS_ITS | Clinical Summary ---
Author Organization [facility] Address [address] [place] [address] Phone Care Team Providers Care Yarn Washer Name Role Phone Delfino Valdez MD [ ] Conditions or Problems Problem Name Problem Code Onset Date Status Entry Date Provider Comment Standard Description Annotate Chronic venous stasis disease 80802671 (SNOMED CT) Active 04/27 Adri Prabhakar Stasis dermatitis DM II with diabetic PVD 740244637 (SNOMED CT) Active 04/27 Adri Prabhakar Peripheral [...] II with peripheral vascular disorder, with gangrene 052361072 (SNOMED CT) Active 03/13 Sharyn W Peripheral circulatory disorder due to type 2 diabetes mellitus Skin tissue necrosis 95058334 (SNOMED CT) Inactive 03/13 Sharyn W Skin necrosis Abrasion, left lower leg, subsequent encounter S80.812D (ICD-10-CM) Inactive 03/13 Sharyn W Abrasion, left lower leg, subsequent encounter Cellulitis, leg, right 688759214 (SNOMED CT) Active 03/13 Adri Prabhakar Cellulitis of lower limb Skin tissue necrosis 19724624 (SNOMED CT) Removed 03/13 Adri Prabhakar Skin necrosis Cellulitis, leg, left 671312037 (SNOMED CT) Active 03/13 Adri Prabhakar Cellulitis of lower limb Abrasion, left lower leg, subsequent encounter S80.812D (ICD-10-CM) Removed 03/13 Adri Prabhakar Abrasion, left lower leg, subsequent encounter DM II with diabetic PVD 759406465 (SNOMED CT) Inactive 03/13 Adri Prabhakar Peripheral vascular disease DM, type II, poorly controlled E11.65 (ICD-10-CM) Active 03/13 Adri Prabhakar Type 2 diabetes mellitus with hyperglycemia Hx of falling 484616322 (SNOMED CT) Active 03/13 Adri Prabhakar History of fall Other obesity due to excess calories 304530342 (SNOMED CT) Active 03/13 Jenn Back Simple obesity Medications Medication Instructions Start Date Stop Date Generic Name NDC Provider DOXYCYCLINE HYCLATE 100 MG TABS Take one pill twice daily. DOXYCYCLINE HYCLATE 70292666890 Delfino Valdez MD DOXYCYCLINE MONOHYDRATE 100 MG TABS Take one pill twice daily. DOXYCYCLINE MONOHYDRATE 34646003325 Delfino Valdez MD DIAZEPAM GEL twice a day in the morning and before bed DIAZEPAM GEL 36207850863 Katie Elkins CELEXA 40 MG TABS Take 1 tablet by mouth daily at bedtime CITALOPRAM HYDROBROMIDE 71078126942 Katie Elkins HYDROCODONE-ACETAM INOPHEN 5-325 MG TABS prn HYDROCODONE-ACETA MINOPHEN 23514417806 Katie Elkins HYDROXYZINE HCL 50 MG TABS Take one (1) tablet by mouth three times a day HYDROXYZINE HCL 70212149602 Katie Elkins TIZANIDINE HCL 4 MG CAPS Take one (1) tablet by mouth twice a day prn TIZANIDINE HCL 37263481383 Katie Elkins FUROSEMIDE 40 MG TABS Take one (1) tablet by mouth three times a day FUROSEMIDE 17977131087 Katie Elkins ATORVASTATIN CALCIUM 80 MG TABS Take 1 tablet by mouth daily at bedtime ATORVASTATIN CALCIUM 17733598240 Katie Elkins HM MAGNESIUM 400 MG ORAL TABLET Take 1 tablet by mouth daily MAGNESIUM OXIDE 33245914722 Katie Elkins INVOKANA 100 MG TABS Take 1 tablet by mouth daily in the morning CANAGLIFLOZIN 46099468832 Katie Elkins METFORMIN HCL 1000 MG TABS Take one (1) tablet by mouth twice a day METFORMIN HCL 61680919900 Katie Elkins AMBIZINE 25 MG ORAL TABLET prn MECLIZINE HCL 74981665563 Katie K DICYCLOMINE HCL 10 MG CAPS prn DICYCLOMINE HCL 82344360287 Katie Elkins LISINOPRIL 10 MG TABS Take 1 tablet by mouth daily LISINOPRIL 09910092566 Katie K ASPIRIN 325 MG TABS ASPIRIN 94661639518 Katie K LANTUS SOLOSTAR 100 UNIT/ML SOPN 50 units at bedtime INSULIN GLARGINE 43735542243 Katie K VENTOLIN HFA 108 (90 Base) MCG/ACT AERS 2 puffs prn ALBUTEROL SULFATE 77428703748 Katie K SYMBICORT 160-4.5 MCG/ACT AERO 2 puffs twice daily prn BUDESONIDE-FORMOT SKYE FUMARATE 30094486332 Katie K AMITRIPTYLINE HCL 25 MG TABS Take 1 tablet by mouth daily at bedtime AMITRIPTYLINE HCL 80601634541 Katie Severo *NEEDS MED LIST UPDATE -SEE LIST* 04/03 *NEEDS MED LIST UPDATE -SEE LIST* Katie Elkins DAKINS SOLUTION DAKINS SOLN [phone] Andrew Elias *NEEDS MED LIST UPDATE -SEE LIST* 04/03 *NEEDS MED LIST UPDATE -SEE LIST* Andrew Elias DOXYCYCLINE HYCLATE 100 MG CAPS take 1 cap po BID DOXYCYCLINE HYCLATE 40278473455 Delfino Valdez MD ACETAMINOPHEN 325 MG TABS Take 2 tabs by mouth daily as needed 03/14 ACETAMINOPHEN 96311341438 Delfino Valdez MD BACTRIM DS 800-160 MG TABS Take one (1) tablet by mouth twice a day 03/14 SULFAMETHOXAZOLE- TRIMETHOPRIM 92594125896 Delfino Valdez MD ATORVASTATIN CALCIUM 20 MG TABS 1 tab by mouth qhs 03/14 ATORVASTATIN CALCIUM 32042418738 Delfino Valdez MD BUMETANIDE 1 MG TABS Take 2 tabs by mouth every 12 hours 03/14 BUMETANIDE 57762878314 Delfino Valdez MD DAKINS (1/4 STRENGTH) 0.125 % SOLN 1 application twice daily 03/14 DAKINS 06392412947 Delfino Valdez MD NOVOLOG 100 UNIT/ML SUBCUTANEOUS SOLUTION Inject subQ with meals 03/14 INSULIN ASPART 82881967600 Delfino Valdez MD KLOR-CON 10 10 MEQ CR-TABS Take 4 tabs by mouth daily 03/14 POTASSIUM CHLORIDE 27690804092 Delfino Valdez MD VITAMIN D2 50 MCG (1999 UT) TABS 50,000 one cap a month ERGOCALCIFEROL 00876877916 Jenn Back KLOR-CON 10 10 MEQ CR-TABS Take 4 tabs by mouth daily 0/02 POTASSIUM CHLORIDE 48996612765 Jenn Back OXYCODONE HCL 5 MG TABS Take 2 tabs every 6 hours as needed OXYCODONE HCL 32933714126 Jenn Back OMEPRAZOLE 40 MG CPDR Take 1 tablet by mouth daily OMEPRAZOLE 25756302516 Jenn Back METHOCARBAMOL 500 MG TABS Take 0.5 tab by mouth every 6 hours METHOCARBAMOL 52877632267 Jenn Back MELATONIN 3 MG TABS Take 2 tabs by mouth qhs MELATONIN 79159048973 Jenn Back LIDOCAINE HCL 2 % EXTERNAL GEL Apply topically as needed LIDOCAINE HCL 04212005570 Jenn Back LEVOCETIRIZINE DIHYDROCHLORIDE 5 MG TABS Take 1 tab by mouth at night LEVOCETIRIZINE DIHYDROCHLORIDE 39057625869 Jenn Back NOVOLOG 100 UNIT/ML SUBCUTANEOUS SOLUTION Inject subQ with meals 05/06 INSULIN ASPART 13286837892 Jenn Back GABAPENTIN 300 MG CAPS Take one (1) tablet by mouth three times a day GABAPENTIN 75221530129 Jenn Back FOLIC ACID 1 MG TABS Take 1 tablet by mouth daily FOLIC ACID 39244288229 Jenn Back BREO ELLIPTA 100-25 MCG/ACT AEPB Inhale 1 puff daily FLUTICASONE FUROATE-VILANTERO L 73132927569 Jenn Back DULCOLAX STOOL SOFTENER 100 MG CAPS 1 supp as needed DOCUSATE SODIUM 10214518645 Jenn Back DAKINS (1/4 STRENGTH) 0.125 % SOLN 1 application twice daily 05/06 DAKINS 21689195434 Jenn Back CELEXA 20 MG TABS Take 2 tabs by mouth daily CITALOPRAM HYDROBROMIDE 79870012629 Jenn Back BUMETANIDE 1 MG TABS Take 2 tabs by mouth every 12 hours 08/05 BUMETANIDE 84541723559 Jenn Back BACTRIM DS 800-160 MG TABS Take one (1) tablet by mouth twice a day 4 SULFAMETHOXAZOLE- TRIMETHOPRIM 95259290905 Jenn Back ATORVASTATIN CALCIUM 20 MG TABS 1 tab by mouth qhs 207 ATORVASTATIN CALCIUM 85594086313 Jenn Back ADULT ASPIRIN EC LOW STRENGTH 81 MG ORAL TABLET DELAYED RELEASE Take 1 tablet by mouth daily ASPIRIN 43711900576 Jenn Back AMITRIPTYLINE HCL 25 MG TABS Take by mouth every hour 04/03 AMITRIPTYLINE HCL 48571294924 Jenn Back ALBUTEROL SULFATE (2.5 MG/3ML) 0.083% NEBU Inhale 3mL every 6 hours as needed ALBUTEROL SULFATE 57336905385 Jenn Back ACETAMINOPHEN 325 MG TABS Take 2 tabs by mouth daily as needed 03/14 ACETAMINOPHEN 87854669482 Jenn Back Medications Administered No information available. 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
--- OUTSIDE RECORDS SUMMARY | 2024-11-14 07:57 | XMS_ITS | Clinical Summary ---
Author Organization Healthcare Address [address] [place] [address] Care Team Providers Care Transportation Maintenance Operator Name Role Phone Tone Ward MD Primary Care Provider [phone] Allergies Active Allergy Reactions Criticality Noted Date [...] 5 Active ergocalciferol (Vitamin D-2) 1.25 MG (96393 UT) capsule Take 1 capsule by mouth [...] any time in the past [address] [facility], were you homeless or living in a care home (including now)? No 05/26/2024 Utilities Answer Date Recorded In the past 12 months has th e electric, gas, oil, or water [employer] threatened to shut off services in your [...] A1C 10/29/2022, 10/25/2021, 08/23/2017, Additional history exists [id number] Vaccine (6 - Moderna risk ) 10/06/2024 [...] Antibody Negative Negative 05/23/2024 3:32 AM EDT [facility] Blood Venous blood specimen / Unknown Venipuncture / Unknown 05/23/2024 2:42 AM EDT 05/23/2024 2:51 AM EDT us Cruz [place] MD LAB BLOOD ORDERABLES Final Re sult [facility] [address] [place] [address] * (ABNORMAL) Hemoglobin A1c (08/13/2015 3:32 AM [...] 3:32 AM EDT 08/13/2015 3:48 AM EDT [facility] Provider LAB BLOOD ORDERABLES Final R esult SUNQUEST from Last 3 Months or Most Recently Relevant to Health Maintenance Additional Health Concerns Infection Onset Date 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
--- NOTE | 2024-11-14 08:00 | CT_ITS ---
FINAL REPORT CLINICAL HISTORY: LLE and BLE claudication FINDINGS: Post contrast axial imaging of the aorta and bilateral lower extremity was obtained and reviewed.This study was performed with techniques to keep radiation doses as low as reasonably achievable (ALARA). Individualized dose reduction techniques using automated exposure control or adjustment of mA and/or kV according to the patient''s size were employed. There is no evidence of aortic aneurysm. There is no evidence of aortic stenosis. There are calcifications at the origins of both the celiac axis and the SMA. 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 The JACI is patent there is dense calcification at the origin of the right renal artery where there is severe stenosis or occlusion. There is a large collateral providing flow to the right kidney. There is moderate left renal artery stenosis. The bilateral common iliac arteries, internal iliac arteries, and external iliac arteries are patent. Right: The right common femoral artery is patent. There is mild to moderate stenosis of the right superficial femoral artery at its origin. The profunda is patent. There is atherosclerotic disease throughout the superficial femoral artery without evidence of occlusion. The popliteal artery is patent. There is a three-vessel runoff in the calf to the foot. Left: The left common femoral artery is patent. There is mild stenosis of the superficial femoral artery at its origin. There is atherosclerotic disease with areas of mild stenosis throughout the course of the superficial femoral artery. The profunda is patent. The popliteal artery is patent. There is a three-vessel runoff in the calf. There is nodular airspace disease in the left greater than right lower lobe concerning for pneumonia. Review of the remaining abdomen and pelvis demonstrates no evidence of mass or adenopathy. There is no fluid collection or acute inflammatory process. Bilateral nonobstructing renal stones are present. There is a right inguinal hernia containing unobstructed small bowel loops. IMPRESSION: No evidence of aortic aneurysm or arterial occlusion. Atherosclerotic disease as above throughout the aortic branches and bilateral lower extremities. Left greater than right lower lobe nodular opacities concerning for pneumonia. Consider follow-up chest CT. Right inguinal hernia containing unobstructed small bowel. Authenticated and ERN
[2024-11-14] MEDS: 0.9 % SODIUM CHLORIDE 50 ML VIAL IV ×2 (09:23)
[2024-11-14] MEDS: SODIUM CHLORIDE 0.9% 10ML SYR (RAD ONLY) 10 ML IV (09:23)
[2024-11-14] MEDS: IOPAMIDOL-370 (76%);100ML BOTTLE 100 ML IV (09:23)
== END 2024-11-14 23:59 | disposition home or self-care (01) ==
LOC: RAD 07:55
PROVIDERS: PCP Nurse Practitioner Family; Visit Provider Physician Assistant
DX: I70.213 Atherosclerosis of native arteries of extremities with intermittent claudication, bilateral legs (principal); I70.0 Atherosclerosis of aorta; K40.90 Unilateral inguinal hernia, without obstruction or gangrene, not specified as recurrent; R91.8 Other nonspecific abnormal finding of lung field
CPT/HCPCS: 75635; Q9967

== ENCOUNTER 2024-12-01 10:39 | Outpatient (CLI) | payer MEDICARE, MEDICAID, SELFPAY ==
--- NOTE | 2024-12-01 10:42 | XR_ITS ---
FINAL REPORT CLINICAL HISTORY: right tib/fib fx COMPARISON: 11/09/2024 FINDINGS: Two views of the right tibia/fibula were obtained. There is a mildly displaced fracture of the proximal right fibula. There has been been progressive bony resorption along the fracture line and periosteal new bone formation at the margins of the fracture. The bones are osteopenic. The joint spaces are intact. There is no soft tissue abnormality. IMPRESSION: Healing proximal fibular fracture. Reviewed, Interpreted and Dictated by Roque Cantu MD Transcribed by Mayra Rios Authenticated and [facility]
--- NOTE | 2024-12-01 10:42 | XR_ITS ---
FINAL REPORT CLINICAL HISTORY: right wrist fx COMPARISON: 11/06/2024 FINDINGS: RIGHT WRIST Three views demonstrate a mildly impacted transverse fracture of the distal radial metaphysis. There is increased sclerosis along the fracture line consistent with healing. Moderate hypertrophic changes are noted at the basilar joint. The soft tissues are unremarkable. IMPRESSION: Healing distal radius fracture. Reviewed, Interpreted and Dictated by Roque Cantu MD Transcribed by Mayra Rios Authenticated and [facility]
--- OUTSIDE RECORDS SUMMARY | 2024-12-01 10:51 | XMS_ITS | Clinical Summary ---
Author Organization [facility] Address [address] [place] [address] Phone Care Team Providers Care Zigzag Machine Operator Name Role Phone Delfino Valdez MD [phone] [ ] Conditions or Problems Problem Name Problem Code Onset Date Status Entry Date Provider Comment Standard Description Annotate Chronic venous stasis disease 69010324 (SNOMED CT) Active 04/27 Adri Prabhakar Stasis dermatitis DM II with diabetic PVD 417691658 (SNOMED CT) Active 04/27 Adri Prabhakar Peripheral [...] II with peripheral vascular disorder, with gangrene 251640288 (SNOMED CT) Active 03/13 Sharyn W Peripheral circulatory disorder due to type 2 diabetes mellitus Skin tissue necrosis 46815354 (SNOMED CT) Inactive 03/13 Sharyn W Skin necrosis Abrasion, left lower leg, subsequent encounter S80.812D (ICD-10-CM) Inactive 03/13 Sharyn W Abrasion, left lower leg, subsequent encounter Cellulitis, leg, right 857839736 (SNOMED CT) Active 03/13 Adri Prabhakar Cellulitis of lower limb Skin tissue necrosis 00469112 (SNOMED CT) Removed 03/13 Adri Prabhakar Skin necrosis Cellulitis, leg, left 878116753 (SNOMED CT) Active 03/13 Adri Prabhakar Cellulitis of lower limb Abrasion, left lower leg, subsequent encounter S80.812D (ICD-10-CM) Removed 03/13 Adri Prabhakar Abrasion, left lower leg, subsequent encounter DM II with diabetic PVD 494945012 (SNOMED CT) Inactive 03/13 Adri Prabhakar Peripheral vascular disease DM, type II, poorly controlled E11.65 (ICD-10-CM) Active 03/13 Adri Prabhakar Type 2 diabetes mellitus with hyperglycemia Hx of falling 751464291 (SNOMED CT) Active 03/13 Adri Prabhakar History of fall Other obesity due to excess calories 837041761 (SNOMED CT) Active 03/13 Jenn Back Simple obesity Medications Medication Instructions Start Date Stop Date Generic Name NDC Provider DOXYCYCLINE HYCLATE 100 MG TABS Take one pill twice daily. DOXYCYCLINE HYCLATE 70398887070 Delfino Valdez MD DOXYCYCLINE MONOHYDRATE 100 MG TABS Take one pill twice daily. DOXYCYCLINE MONOHYDRATE 86351185671 Delfino Valdez MD DIAZEPAM GEL twice a day in the morning and before bed DIAZEPAM GEL 93443359988 Katie Elkins CELEXA 40 MG TABS Take 1 tablet by mouth daily at bedtime CITALOPRAM HYDROBROMIDE 40152558198 Katie Elkins HYDROCODONE-ACETAM INOPHEN 5-325 MG TABS prn HYDROCODONE-ACETA MINOPHEN 70339778607 Katie Elkins HYDROXYZINE HCL 50 MG TABS Take one (1) tablet by mouth three times a day HYDROXYZINE HCL 39750337199 Katie Elkins TIZANIDINE HCL 4 MG CAPS Take one (1) tablet by mouth twice a day prn TIZANIDINE HCL 50231444087 Katie Elkins FUROSEMIDE 40 MG TABS Take one (1) tablet by mouth three times a day FUROSEMIDE 11730556807 Katie Elkins ATORVASTATIN CALCIUM 80 MG TABS Take 1 tablet by mouth daily at bedtime ATORVASTATIN CALCIUM 45052428393 Katie Elkins HM MAGNESIUM 400 MG ORAL TABLET Take 1 tablet by mouth daily MAGNESIUM OXIDE 24494748252 Katie Elkins INVOKANA 100 MG TABS Take 1 tablet by mouth daily in the morning CANAGLIFLOZIN 50060155746 Katie Elkins METFORMIN HCL 1000 MG TABS Take one (1) tablet by mouth twice a day METFORMIN HCL 63795414163 Katie Elkins AMBIZINE 25 MG ORAL TABLET prn MECLIZINE HCL 82947035953 Katie K DICYCLOMINE HCL 10 MG CAPS prn DICYCLOMINE HCL 75601626316 Katie Elkins LISINOPRIL 10 MG TABS Take 1 tablet by mouth daily LISINOPRIL 08885058615 Katie K ASPIRIN 325 MG TABS ASPIRIN 42082665223 Katie K LANTUS SOLOSTAR 100 UNIT/ML SOPN 50 units at bedtime INSULIN GLARGINE 83203549578 Katie K VENTOLIN HFA 108 (90 Base) MCG/ACT AERS 2 puffs prn ALBUTEROL SULFATE 84051487669 Katie K SYMBICORT 160-4.5 MCG/ACT AERO 2 puffs twice daily prn BUDESONIDE-FORMOT SKYE FUMARATE 75662461534 Katie K AMITRIPTYLINE HCL 25 MG TABS Take 1 tablet by mouth daily at bedtime AMITRIPTYLINE HCL 14638019885 Katie Severo *NEEDS MED LIST UPDATE -SEE LIST* 04/03 *NEEDS MED LIST UPDATE -SEE LIST* Katie Elkins DAKINS SOLUTION DAKINS SOLN [id number] Andrew Elias *NEEDS MED LIST UPDATE -SEE LIST* 04/03 *NEEDS MED LIST UPDATE -SEE LIST* Andrew Elias DOXYCYCLINE HYCLATE 100 MG CAPS take 1 cap po BID DOXYCYCLINE HYCLATE 19792413610 Delfino Valdez MD ACETAMINOPHEN 325 MG TABS Take 2 tabs by mouth daily as needed 03/14 ACETAMINOPHEN 91737950657 Delfino Valdez MD BACTRIM DS 800-160 MG TABS Take one (1) tablet by mouth twice a day 03/14 SULFAMETHOXAZOLE- TRIMETHOPRIM 64654170184 Delfino Valdez MD ATORVASTATIN CALCIUM 20 MG TABS 1 tab by mouth qhs 03/14 ATORVASTATIN CALCIUM 05484321328 Delfino Valdez MD BUMETANIDE 1 MG TABS Take 2 tabs by mouth every 12 hours 03/14 BUMETANIDE 65654502885 Delfino Valdez MD DAKINS (1/4 STRENGTH) 0.125 % SOLN 1 application twice daily 03/14 DAKINS 01899402174 Delfino Valdez MD NOVOLOG 100 UNIT/ML SUBCUTANEOUS SOLUTION Inject subQ with meals 03/14 INSULIN ASPART 49208383201 Delfino Valdez MD KLOR-CON 10 10 MEQ CR-TABS Take 4 tabs by mouth daily 03/14 POTASSIUM CHLORIDE 77680843302 Delfino Valdez MD VITAMIN D2 50 MCG (1999 UT) TABS 50,000 one cap a month ERGOCALCIFEROL 62556754503 Jenn Back KLOR-CON 10 10 MEQ CR-TABS Take 4 tabs by mouth daily 0/02 POTASSIUM CHLORIDE 72018545894 Jenn Back OXYCODONE HCL 5 MG TABS Take 2 tabs every 6 hours as needed OXYCODONE HCL 54872622325 Jenn Back OMEPRAZOLE 40 MG CPDR Take 1 tablet by mouth daily OMEPRAZOLE 05560310456 Jenn Back METHOCARBAMOL 500 MG TABS Take 0.5 tab by mouth every 6 hours METHOCARBAMOL 55983693236 Jenn Back MELATONIN 3 MG TABS Take 2 tabs by mouth qhs MELATONIN 56553969364 Jenn Back LIDOCAINE HCL 2 % EXTERNAL GEL Apply topically as needed LIDOCAINE HCL 72653270444 Jenn Back LEVOCETIRIZINE DIHYDROCHLORIDE 5 MG TABS Take 1 tab by mouth at night LEVOCETIRIZINE DIHYDROCHLORIDE 35957559095 Jenn Back NOVOLOG 100 UNIT/ML SUBCUTANEOUS SOLUTION Inject subQ with meals 05/06 INSULIN ASPART 71878270628 Jenn Back GABAPENTIN 300 MG CAPS Take one (1) tablet by mouth three times a day GABAPENTIN 58194655293 Jenn Back FOLIC ACID 1 MG TABS Take 1 tablet by mouth daily FOLIC ACID 30305360218 Jenn Back BREO ELLIPTA 100-25 MCG/ACT AEPB Inhale 1 puff daily FLUTICASONE FUROATE-VILANTERO L 11855183085 Jenn Back DULCOLAX STOOL SOFTENER 100 MG CAPS 1 supp as needed DOCUSATE SODIUM 12747671364 Jenn Back DAKINS (1/4 STRENGTH) 0.125 % SOLN 1 application twice daily 05/06 DAKINS 58603462673 Jenn Back CELEXA 20 MG TABS Take 2 tabs by mouth daily CITALOPRAM HYDROBROMIDE 10237579478 Jenn Back BUMETANIDE 1 MG TABS Take 2 tabs by mouth every 12 hours 08/05 BUMETANIDE 05471970591 Jenn Back BACTRIM DS 800-160 MG TABS Take one (1) tablet by mouth twice a day 4 SULFAMETHOXAZOLE- TRIMETHOPRIM 57868150534 Jenn Back ATORVASTATIN CALCIUM 20 MG TABS 1 tab by mouth qhs 207 ATORVASTATIN CALCIUM 53534532987 Jenn Back ADULT ASPIRIN EC LOW STRENGTH 81 MG ORAL TABLET DELAYED RELEASE Take 1 tablet by mouth daily ASPIRIN 83780129382 Jenn Back AMITRIPTYLINE HCL 25 MG TABS Take by mouth every hour 04/03 AMITRIPTYLINE HCL 74126810223 Jenn Back ALBUTEROL SULFATE (2.5 MG/3ML) 0.083% NEBU Inhale 3mL every 6 hours as needed ALBUTEROL SULFATE 46442850567 Jenn Back ACETAMINOPHEN 325 MG TABS Take 2 tabs by mouth daily as needed 03/14 ACETAMINOPHEN 61614120684 Jenn Back Medications Administered No information available. 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
--- OUTSIDE RECORDS SUMMARY | 2024-12-01 10:51 | XMS_ITS | Clinical Summary ---
Author Organization Healthcare Address [address] [place] [address] Care Team Providers Care Estate Conservator Name Role Phone Tone Ward MD Primary Care Provider [phone] Allergies Active Allergy Reactions Criticality Noted Date [...] 5 Active ergocalciferol (Vitamin D-2) 1.25 MG (41205 UT) capsule Take 1 capsule by mouth [...] any time in the past 12 m [facility], were you homeless or living in a care home (including now)? No 05/26/2024 Utilities Answer Date Recorded In the past 12 months has th e electric, [employer], oil, or water [employer] threatened to shut off services in your [...] 1994 FIT-DNA 1994 FIT 1994 Sigmoidoscopy 1994 [facility]-Zoster Vaccines (2 of 3) 08/06/2015 06/11/2015 FOBT 01/27/2016 01/26/2015 [facility]-Colorectal Cancer Screening 01/27/2016 [facility]-Diabetes: Hemoglobin A1C 10/29/2022, 10/25/2021, 08/23/2017, Additional history exists [id number] Vaccine (6 - Moderna risk season) 2024 11/12/2023, 05/17/2021, 12/13/2020, Additional history exists [facility]-Influenza Vaccine (#1) 10/06/202410/252, 12/14/2020, 02/13/2020, Additional history exists [facility]-RSV Vaccine: 60+ Years or (1 - 1-dose 75+ series) 2024 [facility]- SDOH Screenings 11/25/2024 [facility]-Adult SDOH Screenings [...] Antibody Negative Negative 05/23/2024 3:32 AM EDT [facility] Blood Venous blood specimen / Unknown Venipuncture / Unknown 05/23/2024 2:42 AM EDT 05/23/2024 2:51 AM EDT us Cruz Montgomery MD LAB BLOOD ORDERABLES Final Re sult [facility] [address] [place] [address] * (ABNORMAL) Hemoglobin A1c (08/13/2015 3:32 AM [...] EDT us Historical Provider LAB BLOOD ORDERABLES Final R esult [...] updated to appropriate status: Yes Care Teams Estate Conservator Relationship Specialty Start Date End Date Tone Ward MD [address] [place] [address] [place] [address] PCP - General 06/18/20
--- OUTSIDE RECORDS SUMMARY | 2024-12-01 11:51 | XMS_ITS | CCD ---
Author Organization Unknown Care Team Providers Care Corporation Lawyer Name Role Phone Unavailable Primary Care Provider Unavailabl e Unavailable Chronic Care Management Unavaila ble Summary Purpose DataExchange Insurance Providers Payer name Policy type / Coverage type Covered constitution party ID Effective Begin Date Effective End Date [facility] [id number] Unknown Unknown Family History Family History data not found Medication Administered No Medication Administered data Reason For Visit No Reason For Visit data Medical Equipment No Medical Equipment data Advance Directives No Advance Directive data
== END 2024-12-01 23:59 | disposition home or self-care (01) ==
LOC: RAD 10:39
PROVIDERS: PCP Internal Medicine Adolescent Medicine; Visit Provider Physician Assistant Surgical
DX: S52.591D Other fractures of lower end of right radius, subsequent encounter for closed fracture with routine healing (principal); S82.861D Displaced Maisonneuve's fracture of right leg, subsequent encounter for closed fracture with routine healing
CPT/HCPCS: 73110; 73590

== ENCOUNTER 2024-12-10 10:02 | Outpatient (CLI) | payer MEDICARE, MEDICAID, SELFPAY ==
--- OUTSIDE RECORDS SUMMARY | 2024-12-10 10:11 | XMS_ITS | Clinical Summary ---
Author Organization [facility] Address [address] [place] [address] Phone Care Team Providers Care Buff Wheel Fabricator Name Role Phone Delfino Valdez MD [ ] Conditions or Problems Problem Name Problem Code Onset Date Status Entry Date Provider Comment Standard Description Annotate Chronic venous stasis disease 84297165 (SNOMED CT) Active 04/27 Adri Prabhakar Stasis dermatitis DM II with diabetic PVD 181939425 (SNOMED CT) Active 04/27 Adri Prabhakar Peripheral [...] II with peripheral vascular disorder, with gangrene 255348052 (SNOMED CT) Active 03/13 Sharyn W Peripheral circulatory disorder due to type 2 diabetes mellitus Skin tissue necrosis 81148634 (SNOMED CT) Inactive 03/13 Sharyn W Skin necrosis Abrasion, left lower leg, subsequent encounter S80.812D (ICD-10-CM) Inactive 03/13 Sharyn W Abrasion, left lower leg, subsequent encounter Cellulitis, leg, right 473458538 (SNOMED CT) Active 03/13 Adri Prabhakar Cellulitis of lower limb Skin tissue necrosis 30416481 (SNOMED CT) Removed 03/13 Adri Prabhakar Skin necrosis Cellulitis, leg, left 439590954 (SNOMED CT) Active 03/13 Adri Prabhakar Cellulitis of lower limb Abrasion, left lower leg, subsequent encounter S80.812D (ICD-10-CM) Removed 03/13 Adri Prabhakar Abrasion, left lower leg, subsequent encounter DM II with diabetic PVD 645798825 (SNOMED CT) Inactive 03/13 Adri Prabhakar Peripheral vascular disease DM, type II, poorly controlled E11.65 (ICD-10-CM) Active 03/13 Adri Prabhakar Type 2 diabetes mellitus with hyperglycemia Hx of falling 091789417 (SNOMED CT) Active 03/13 Adri Prabhakar History of fall Other obesity due to excess calories 938482213 (SNOMED CT) Active 03/13 Jenn Back Simple obesity Medications Medication Instructions Start Date Stop Date Generic Name NDC Provider DOXYCYCLINE HYCLATE 100 MG TABS Take one pill twice daily. DOXYCYCLINE HYCLATE 28865564934 Delfino Valdez MD DOXYCYCLINE MONOHYDRATE 100 MG TABS Take one pill twice daily. DOXYCYCLINE MONOHYDRATE 16576411317 Delfino Valdez MD DIAZEPAM GEL twice a day in the morning and before bed DIAZEPAM GEL 97411624434 Katie Elkins CELEXA 40 MG TABS Take 1 tablet by mouth daily at bedtime CITALOPRAM HYDROBROMIDE 64004421906 Katie Elkins HYDROCODONE-ACETAM INOPHEN 5-325 MG TABS prn HYDROCODONE-ACETA MINOPHEN 57880581032 Katie Elkins HYDROXYZINE HCL 50 MG TABS Take one (1) tablet by mouth three times a day HYDROXYZINE HCL 51590823319 Katie Elkins TIZANIDINE HCL 4 MG CAPS Take one (1) tablet by mouth twice a day prn TIZANIDINE HCL 96507641749 Katie Elkins FUROSEMIDE 40 MG TABS Take one (1) tablet by mouth three times a day FUROSEMIDE 43015859900 Katie Elkins ATORVASTATIN CALCIUM 80 MG TABS Take 1 tablet by mouth daily at bedtime ATORVASTATIN CALCIUM 23783612279 Katie Elkins HM MAGNESIUM 400 MG ORAL TABLET Take 1 tablet by mouth daily MAGNESIUM OXIDE 11636025286 Katie Elkins INVOKANA 100 MG TABS Take 1 tablet by mouth daily in the morning CANAGLIFLOZIN 99774725639 Katie Elkins METFORMIN HCL 1000 MG TABS Take one (1) tablet by mouth twice a day METFORMIN HCL 69023275585 Katie Elkins AMBIZINE 25 MG ORAL TABLET prn MECLIZINE HCL 15437176354 Katie K DICYCLOMINE HCL 10 MG CAPS prn DICYCLOMINE HCL 54534992748 Katie Elkins LISINOPRIL 10 MG TABS Take 1 tablet by mouth daily LISINOPRIL 34552661572 Katie K ASPIRIN 325 MG TABS ASPIRIN 12104993074 Katie K LANTUS SOLOSTAR 100 UNIT/ML SOPN 50 units at bedtime INSULIN GLARGINE 95081532046 Katie K VENTOLIN HFA 108 (90 Base) MCG/ACT AERS 2 puffs prn ALBUTEROL SULFATE 22869342108 Katie K SYMBICORT 160-4.5 MCG/ACT AERO 2 puffs twice daily prn BUDESONIDE-FORMOT SKYE FUMARATE 42520704304 Katie K AMITRIPTYLINE HCL 25 MG TABS Take 1 tablet by mouth daily at bedtime AMITRIPTYLINE HCL 38494555784 Katie Severo *NEEDS MED LIST UPDATE -SEE LIST* 04/03 *NEEDS MED LIST UPDATE -SEE LIST* Katie Elkins DAKINS SOLUTION DAKINS SOLN 68307345391 Andrew Elias *NEEDS MED LIST UPDATE -SEE LIST* 04/03 *NEEDS MED LIST UPDATE -SEE LIST* Andrew Elias DOXYCYCLINE HYCLATE 100 MG CAPS take 1 cap po BID DOXYCYCLINE HYCLATE 90669484956 Delfino Valdez MD ACETAMINOPHEN 325 MG TABS Take 2 tabs by mouth daily as needed 03/14 ACETAMINOPHEN 82217908326 Delfino Valdez MD BACTRIM DS 800-160 MG TABS Take one (1) tablet by mouth twice a day 03/14 SULFAMETHOXAZOLE- TRIMETHOPRIM 62101106211 Delfino Valdez MD ATORVASTATIN CALCIUM 20 MG TABS 1 tab by mouth qhs 03/14 ATORVASTATIN CALCIUM 38397299685 Delfino Valdez MD BUMETANIDE 1 MG TABS Take 2 tabs by mouth every 12 hours 03/14 BUMETANIDE 92823499522 Delfino Valdez MD DAKINS (1/4 STRENGTH) 0.125 % SOLN 1 application twice daily 03/14 DAKINS 72572727061 Delfino Valdez MD NOVOLOG 100 UNIT/ML SUBCUTANEOUS SOLUTION Inject subQ with meals 03/14 INSULIN ASPART 38609244073 Delfino Valdez MD KLOR-CON 10 10 MEQ CR-TABS Take 4 tabs by mouth daily 03/14 POTASSIUM CHLORIDE 26273087274 Delfino Valdez MD VITAMIN D2 50 MCG (1999 UT) TABS 50,000 one cap a month ERGOCALCIFEROL 12678712427 Jenn Back KLOR-CON 10 10 MEQ CR-TABS Take 4 tabs by mouth daily 0/02 POTASSIUM CHLORIDE 58528290525 Jenn Back OXYCODONE HCL 5 MG TABS Take 2 tabs every 6 hours as needed OXYCODONE HCL 71255491676 Jenn Bakc OMEPRAZOLE 40 MG CPDR Take 1 tablet by mouth daily OMEPRAZOLE 93963132532 Jenn Back METHOCARBAMOL 500 MG TABS Take 0.5 tab by mouth every 6 hours METHOCARBAMOL 74080774591 Jenn Back MELATONIN 3 MG TABS Take 2 tabs by mouth qhs MELATONIN 92085490719 Jenn Back LIDOCAINE HCL 2 % EXTERNAL GEL Apply topically as needed LIDOCAINE HCL 71405765961 Jenn Back LEVOCETIRIZINE DIHYDROCHLORIDE 5 MG TABS Take 1 tab by mouth at night LEVOCETIRIZINE DIHYDROCHLORIDE 19561845036 Jenn Back NOVOLOG 100 UNIT/ML SUBCUTANEOUS SOLUTION Inject subQ with meals 05/06 INSULIN ASPART 11440587962 Jenn Back GABAPENTIN 300 MG CAPS Take one (1) tablet by mouth three times a day GABAPENTIN 10756574695 Jenn Back FOLIC ACID 1 MG TABS Take 1 tablet by mouth daily FOLIC ACID 02700637465 Jenn Back BREO ELLIPTA 100-25 MCG/ACT AEPB Inhale 1 puff daily FLUTICASONE FUROATE-VILANTERO L 06539520516 Jenn Back DULCOLAX STOOL SOFTENER 100 MG CAPS 1 supp as needed DOCUSATE SODIUM 22475973159 Jenn Back DAKINS (1/4 STRENGTH) 0.125 % SOLN 1 application twice daily 05/06 DAKINS 15321971797 Jenn Back CELEXA 20 MG TABS Take 2 tabs by mouth daily CITALOPRAM HYDROBROMIDE 99972805066 Jenn Back BUMETANIDE 1 MG TABS Take 2 tabs by mouth every 12 hours 08/05 BUMETANIDE 44768106929 Jenn Back BACTRIM DS 800-160 MG TABS Take one (1) tablet by mouth twice a day 4 SULFAMETHOXAZOLE- TRIMETHOPRIM 96722972526 Jenn Back ATORVASTATIN CALCIUM 20 MG TABS 1 tab by mouth qhs 207 ATORVASTATIN CALCIUM 84658681828 Jenn Back ADULT ASPIRIN EC LOW STRENGTH 81 MG ORAL TABLET DELAYED RELEASE Take 1 tablet by mouth daily ASPIRIN 54228058202 Jenn Back AMITRIPTYLINE HCL 25 MG TABS Take by mouth every hour 04/03 AMITRIPTYLINE HCL 01765120813 Jenn Back ALBUTEROL SULFATE (2.5 MG/3ML) 0.083% NEBU Inhale 3mL every 6 hours as needed ALBUTEROL SULFATE 55853836328 Jenn Back ACETAMINOPHEN 325 MG TABS Take 2 tabs by mouth daily as needed 03/14 ACETAMINOPHEN 04041148427 Jenn Back Medications Administered No information available. 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
--- OUTSIDE RECORDS SUMMARY | 2024-12-10 10:11 | XMS_ITS | CCD ---
Author Organization Unknown Care Team Providers Care Protective Services Case Worker Name Role Phone Unavailable Primary Care Provider Unavailabl e Unavailable Chronic Care Management Unavaila ble Summary Purpose DataExchange Insurance Providers Payer name Policy type / Coverage type Covered constitution party ID Effective Begin Date Effective End Date [facility] [id number] Unknown Unknown Family History Family History data not found Medication Administered No Medication Administered data Reason For Visit No Reason For Visit data Medical Equipment No Medical Equipment data Advance Directives No Advance Directive data
[2024-12-10] MEDS: ALBUTEROL 0.083% 2.5 MG/3 ML NEB IH (11:02)
--- NOTE | 2024-12-10 11:03 | PC.NURSE ---
PFT completed without incident. Albuterol 0.083%given via HHN, per written protocol, Pt tolerated tx well.
== END 2024-12-10 23:59 | disposition home or self-care (01) ==
LOC: RT 10:03
PROVIDERS: PCP Internal Medicine Adolescent Medicine; Visit Provider Internal Medicine Pulmonary Disease
DX: J44.9 Chronic obstructive pulmonary disease, unspecified (principal); R94.2 Abnormal results of pulmonary function studies
CPT/HCPCS: 94060; 94726; 94729

== ENCOUNTER 2024-12-22 12:48 | Outpatient (CLI) | payer MEDICARE, MEDICAID, SELFPAY ==
--- NOTE | 2024-12-22 12:54 | XR_ITS ---
FINAL REPORT CLINICAL HISTORY: right tib/fib fx COMPARISON: 12/01/2024 FINDINGS: 2 views of the right tibia/fibula were obtained. There has been progressive healing of the proximal fibular fracture. The bones are osteopenic. There is increased callus formation. There is no soft tissue abnormality. IMPRESSION: Progressive healing proximal fibular fracture. Reviewed, Interpreted and Dictated by Roque Cantu MD Transcribed by Mayra Rios Authenticated and [facility]
--- NOTE | 2024-12-22 12:54 | XR_ITS ---
FINAL REPORT CLINICAL HISTORY: right wrist fx COMPARISON: 12/01/2024 FINDINGS: 3 views of the right wrist demonstrate a mildly impacted fracture of the distal radial metaphysis. Osteophytes are noted along the dorsal aspect of the distal radius. Mild hypertrophic changes are noted at the basilar joint. The soft tissues are unremarkable. IMPRESSION: Stable distal radius fracture. Reviewed, Interpreted and Dictated by Roque Cantu MD Transcribed by Mayra Rios Authenticated and [facility]
== END 2024-12-22 23:59 | disposition home or self-care (01) ==
LOC: RAD 12:49
PROVIDERS: PCP Internal Medicine Adolescent Medicine; Visit Provider Physician Assistant Surgical
DX: M85.88 Other specified disorders of bone density and structure, other site; S82.861D Displaced Maisonneuve's fracture of right leg, subsequent encounter for closed fracture with routine healing; S82.831D Other fracture of upper and lower end of right fibula, subsequent encounter for closed fracture with routine healing; S52.501D Unspecified fracture of the lower end of right radius, subsequent encounter for closed fracture with routine healing; X58.XXXD Exposure to other specified factors, subsequent encounter
CPT/HCPCS: 73110; 73590

== ENCOUNTER 2025-01-12 10:49 | Outpatient (CLI) | payer MEDICARE, MEDICAID, SELFPAY ==
--- NOTE | 2025-01-12 11:00 | CA_ITS ---
APPROVED REPORT EXAM: Comprehensive 2D, Doppler, and color-flow Echocardiogram [employer] Professor: Alethea Solis RT(R) Ht: 5 ft 4 in Wt: 234lbs BSA: 2.09 BP: 113/71 mmHg Indications: chf, afib, cad, soa, diabetes, HFpEF, hx of cardioversion M-Mode Dimensions RVDd 3.27 cm (0.9-2.6) LA Diam 4.30 cm (1.9-4.0) LVDd 3.99 cm (3.5-5.7) LVDs 2.89 cm (3.5-5.7) IVSd 0.76 cm (0.6-1.1) PWd 0.85 cm (0.6-1.1) EF (Teich) 54.20% FS 27.60% EDV (Teich) 69.60 mL ESV (Teich) 31.90 mL LV Diastology E Decel Time 203 (160-240 msec) E/A Ratio 2.7 Aortic Valve AoV Peak Landon. 212.0 (50-130 cm/s) AO Peak GR. 17.90 mmHg AO Mean GR. 8.90 (<5 mmHg) AO VTI 39.9 (18-25 cm) KACY (VTI) 1.18 (2.5-4.5 cm2) Mitral Valve MV E Max Landon. 85.0 (40-130 cm/s) MV A Velocity 31.0 (40-130 cm/s) E/A Ratio 2.73 MV PHT 60.0 ms Tricuspid Valve TR P. Velocity 337.00 cm/s RAP Estimate 10.00 mmHg RVSP 55.50 mmHg Left Ventricle The left ventricle is normal size. Left ventricular systolic function is normal. The left ventricular ejection fraction is within the normal range. There is increased left ventricular wall thickness. The septum is asynchronous. The left ventricular diastolic function is indeterminate. LVEF is 55% Right Ventricle Right ventricle is mildly dilated. Right ventricle is mildly hypokinetic. Atria Left atrium is mildly dilated. Right atrium is moderately dilated. There is no color Doppler evidence of interatrial shunt. Aortic Valve The aortic valve is mildly thickened. Mild aortic stenosis is present. KACY by continuity equation is 1.6 cm2. Peak velocity 2.1 m/s. Mean AV gradient is 12 mmHg. Max AV gradient is 20 mmHg. Trace aortic regurgitation is present. Mitral Valve The mitral valve is mildly thickened. No evidence of mitral valve stenosis. Trace mitral regurgitation is present. Tricuspid Valve The tricuspid valve leaflets are thin and pliable. Trace tricuspid regurgitation. There is insufficient TR jet to estimate RVSP. Pulmonic Valve The pulmonary valve is grossly normal in structure. Trace pulmonic valve regurgitation is present. Great Vessels The aortic root is normal in size. IVC is normal in size and collapses >50% with inspiration. Pericardium There is no pericardial effusion. Other Information Study Quality: Fair Conclusion Normal LV systolic function. Mild RV dilation with mild reduction in RV function. Biatrial dilation. Mild (KACY by continuity equation is 1.6 cm2. Peak velocity 2.1 m/s. Mean AV gradient is 12 mmHg. Max AV gradient is 20 mmHg). Electronically signed by : Radha Hitchcock MD 01/18/2025 22:29:05
== END 2025-01-12 23:59 | disposition home or self-care (01) ==
LOC: RT 10:50
PROVIDERS: PCP Internal Medicine Adolescent Medicine; Visit Provider Internal Medicine
DX: I08.2 Rheumatic disorders of both aortic and tricuspid valves (principal); I11.0 Hypertensive heart disease with heart failure; I50.33 Acute on chronic diastolic (congestive) heart failure; S81.802A Unspecified open wound, left lower leg, initial encounter; I73.9 Peripheral vascular disease, unspecified; I25.10 Atherosclerotic heart disease of native coronary artery without angina pectoris; I48.91 Unspecified atrial fibrillation; E11.9 Type 2 diabetes mellitus without complications; Z98.890 Other specified postprocedural states
CPT/HCPCS: 93306

== ENCOUNTER 2025-01-19 07:53 | Day surgery (SDC) | payer MEDICARE, MEDICAID, SELFPAY ==
[2025-01-19] VITALS (13 sets, daily range): BP systolic 127–165; BP diastolic 50–100; PULSE 61–93; RESP 19–20; O2SAT 93–98; BMI 34.7; BMI 42.7
--- NOTE | 2025-01-19 07:13 | IR_ITS ---
APPROVED REPORT Patient Location: Outpatient PROCEDURES Catheter placement in the right common iliac artery Right common iliac artery antegrade angiogram with unilateral runoff to the right foot Catheter placed in the distal abdominal aorta Left common iliac artery antegrade angiogram with unilateral runoff to the left foot Catheter placed in the distal abdominal aorta Distal abdominal aortography INDICATION Dane claudication class V, Poorly healing lower extremity ulcers with pulseless feet Informed consent was obtained prior to the procedure. COMPLICATIONS NONE Estimated Blood Loss: LESS THAN 10 ML TECHNIQUE 1% lidocaine used to anesthetize the right anterior aspect of the right wrist. The right radial artery was accessed via the central technique and an arterial cocktail using 5000U heparin, 2.5 mg verapamil, 1mg lidocaine and 800mcg nitroglycerin into the right radial sheath intra-arterially. A PV multi curve catheter was then placed into the left common iliac artery via the right radial sheath and iliofemoral angiography was performed with unilateral runoff to the foot. Excellent angiographic results were obtained. At the end of the procedure the apparatus was removed the sheath was removed good hemostasis was achieved using TR banding patient was transferred to the postop holding area in stable condition. ANGIOGRAPHIC RESULTS Distal abdominal aorta is patent but tortuous Bilateral common internal and external iliac arteries are tortuous but widely patent Bilateral common femoral arteries are patent Bilateral profunda femoris arteries are patent Right superficial femoral artery has mild atheromatous plaque and is widely patent into the right popliteal artery which she has mild atheromatous plaque. There is three-vessel runoff below the knee on the right side. The anterior tibialis artery has diffuse 80 to 90% calcified atheromatous plaque in the proximal and midportion Left superficial femoral artery is moderate atheromatous plaque is widely patent into the left popliteal artery. 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 There is significant venous congestion in the bilateral lower extremities Angiographic evidence of venous congestion with patient's lower extremity ulcers stemming from venous insufficiency PLAN 1. Peripheral artery disease as described above 2. Treatment of venous insufficiency Electronically signed by : Perez Llanos MD 01/20/2025 13:17:22
[2025-01-19 09:51] LABS: Hematocrit 41.2 % (37.0-47.0); Hemoglobin 12.6 g/dL (12.2-16.2); Immature Granulocytes % 0.6 %; Mean Corpuscular HGB Conc 30.6 g/dL (31.8-35.4); Mean Corpuscular Hemoglobin 25.5 pg (27.0-31.2); Mean Corpuscular Volume 83.4 fl (81-99); Nucleated Red Blood Cells % 0 %; Platelet Count 341 K/mm3 (142-424); Red Blood Count 4.94 M/mm3 (4.20-5.40); Red Cell Distribution Width-SD 56.0 fL; White Blood Count 10.9 K/mm3 (4.8-10.8)
[2025-01-19 10:05] LABS: Chloride 92 mmol/L (98-107); Potassium 4.2 mmoL/L (3.5-5.1); Sodium 134 mmol/L (136-145)
[2025-01-19 10:08] LABS: Blood Urea Nitrogen 25 mg/dl (7-17); Calcium 9.2 mg/dl (8.4-10.2); Creatinine Clearance Estimated 35 mL/min (50-200); Creatinine,Serum 1.20 mg/dl (0.52-1.04); Estimated Glomerular Filt Rate 44 ml/min (>60); GFR (African American) 53 ML/MIN (>60); Glucose 105 mg/dl (74-100)
[2025-01-19 10:16] LABS: Anion Gap 9.2 mEq/L (5-15); Carbon Dioxide 37 mmol/L (22.0-30.0)
[2025-01-19] MEDS: 0.9 % SODIUM CHLORIDE 500 ML 25 ML IV (10:28)
[2025-01-19] MEDS: FENTANYL 100MCG/2ML VIAL 50 MCG IV (10:29)
[2025-01-19] MEDS: NITROGLYCERIN 800MCG/8ML SYR (CATH LAB) 800 MCG IA (10:29)
[2025-01-19] MEDS: MIDAZOLAM HCL 1MG/ML 5ML VIAL 1 MG IV (10:29)
--- NOTE | 2025-01-19 14:03 | SUR.PHASEII ---
Gave report to Reta at [facility]
== END 2025-01-19 14:08 | disposition home or self-care (01) ==
PROVIDERS: PCP Internal Medicine Adolescent Medicine; Visit Provider Internal Medicine
DX: I87.2 Venous insufficiency (chronic) (peripheral) (principal); L97.829 Non-pressure chronic ulcer of other part of left lower leg with unspecified severity; L97.819 Non-pressure chronic ulcer of other part of right lower leg with unspecified severity; E11.51 Type 2 diabetes mellitus with diabetic peripheral angiopathy without gangrene; I70.213 Atherosclerosis of native arteries of extremities with intermittent claudication, bilateral legs; I25.118 Atherosclerotic heart disease of native coronary artery with other forms of angina pectoris; R60.0 Localized edema; I50.33 Acute on chronic diastolic (congestive) heart failure; R06.02 Shortness of breath; I07.1 Rheumatic tricuspid insufficiency; I35.0 Nonrheumatic aortic (valve) stenosis; I11.0 Hypertensive heart disease with heart failure; E66.812 Obesity, class 2; Z68.41 Body mass index [BMI] 40.0-44.9, adult; I48.20 Chronic atrial fibrillation, unspecified; E78.2 Mixed hyperlipidemia; J44.9 Chronic obstructive pulmonary disease, unspecified; I25.2 Old myocardial infarction; I27.20 Pulmonary hypertension, unspecified; Z95.5 Presence of coronary angioplasty implant and graft; Z87.891 Personal history of nicotine dependence; Z79.02 Long term (current) use of antithrombotics/antiplatelets; Z79.4 Long term (current) use of insulin; Z79.890 Hormone replacement therapy; Z79.51 Long term (current) use of inhaled steroids; Z79.01 Long term (current) use of anticoagulants; Z79.85 Long-term (current) use of injectable non-insulin antidiabetic drugs; Z79.899 Other long term (current) drug therapy; Z88.1 Allergy status to other antibiotic agents; Z88.0 Allergy status to penicillin
CPT/HCPCS: 36200; 36415; 80048; 85025; 99152; 99153; C1725; C1769; C1887; J2003; J3010; J7040